=== PATIENT | female | born 1960 | race Caucasian/White ===

== ENCOUNTER 2016-07-25 01:04 | Inpatient (IN) | payer OTHER ==
[~2016-07-25] VITALS: Ht 154.9 cm; Wt 105.3 kg
[~2016-07-25 01:04] MED LIST: ACETTAB15 PO; ACT30 PO; ADVIN50/60 INH; ALBU0.5N2 NEB; ALBUAER2 INH; AMIT50TA3 PO; FLUO40CA8 PO; GABA400C PO; HYDR-5688 PO; LEVO150T PO; LORA10TA5 PO; METO25TA56 PO; MONT1TAB3 PO; OMEP40CA PO; OPANA ER PO; OPANA PO; PROM25TA9 PO
[2016-07-25] MEDS ORDERED: ACETAMINOPHEN IV 650 MG in EMPTY BAG 0 ML IV ONE (02:00)
[2016-07-25 02:36] LABS: MANUAL MICROSCOPIC REQUIRED? YES; URINE APPEARANCE CLOUDY (CLEAR); URINE BILIRUBIN NEG (NEG); URINE COLOR ORANGE; URINE NITRITE POS (NEG); URINE SPECIFIC GRAVITY 1.025 (1.000-1.030); UROBILINOGEN NEG (NEG)
[2016-07-25 02:44] LABS: REVIEW REQ? NO
[2016-07-25 02:46] LABS: SULFASALICYLIC ACID POS (NEG); URINE RBC >30 /hpf (0-4); URINE WBC >30 /hpf (0-5)
[2016-07-25 02:47] LABS: URINE BACTERIA 1+ (NEG); ZZUR CULT IF INDIC CLEAN CATCH YES
[2016-07-25] MEDS ORDERED: CEFTRIAXONE SOD INJ 1 GM ADDVIAL IV STA (02:50)
[2016-07-25 03:20] LABS: BASO % 0.4 %; BASO ABS # 0.08 K/uL (0-0.2); COMPLETE YES; EOS % 1.3 %; HEMATOCRIT 43.7 % (37-47); IG% 0.3 %; LYMPH % 12.2 %; LYMPH ABS # 2.45 K/uL (1.2-3.4); MEAN CELL VOLUME 85.9 fL (80-100); MEAN CORPUSCULAR HEMOGLOBIN 29.1 pg (25-34); MEAN CORPUSCULAR HGB CONC 33.9 g/dl (32-36); MEAN PLATELET VOLUME 10.2 fL (7.4-10.4); MONO % 9.9 %; NEUT % 75.9 %; PLATELET COUNT 429 K/uL (130-400); RED BLOOD COUNT 5.09 M/uL (4.2-5.4); WHITE BLOOD COUNT 20.05 K/uL (4.8-10.8)
[2016-07-25] MEDS ORDERED: OMEP40CA41 PO (03:35)
[2016-07-25 03:36] LABS: CALCIUM 8.6 mg/dl (8.5-10.1); CREATININE 0.66 mg/dl (0.60-1.20); MAGNESIUM 2.1 mg/dl (1.8-2.4); POTASSIUM 3.4 mmol/L (3.5-5.1)
[2016-07-25] MEDS ORDERED: MoRPHine SULFATE 4 MG/ML 1 ML CARP\\VIAL IV STA (03:36)
[2016-07-25] MEDS ORDERED: GABA800T PO (03:36)
[2016-07-25] MEDS ORDERED: RRALBUT2.5 NEB (03:40)
[2016-07-25] MEDS ORDERED: VNTHFA/IN INH (03:40)
[2016-07-25 03:42] LABS: ALB/GLOB RATIO 0.9 (0.9-2)
[2016-07-25] MEDS ORDERED: OXYC20TA50 PO (03:42)
[2016-07-25] MEDS ORDERED: FRCT/ PO (03:42)
[2016-07-25] MEDS ORDERED: PRMT25 PO (03:42)
[2016-07-25] MEDS ORDERED: LORATADINE 10 MG TAB PO PRN (05:00)
[2016-07-25] MEDS ORDERED: ALBUTEROL 0.5% NEB SOLN 2.5 MG/0.5 ML VIAL INH PRN (05:00)
[2016-07-25] MEDS ORDERED: ACETAMINOPHEN 325 MG TAB PO PRN (05:00)
[2016-07-25] MEDS ORDERED: ALBUTEROL HFA 8 GM INHALER INH PRN (05:00)
[2016-07-25] MEDS ORDERED: MoRPHine SULFATE 4 MG/ML 1 ML CARP\\VIAL ONE (05:55)
[2016-07-25 06:06] VITALS: BP 132/85; PULSE 92; TEMP 37.2; O2SAT 92; Ht 154.9 cm; Wt 105.3 kg
--- NOTE | 2016-07-25 06:52 | History and Physical ---
History & Physical Date & Time of Service: Jul 25, 2016 at 06:42 Chief Complaint: Sirs, Uti Primary Care Physician: Norberto Anderson MD History of Present Illness Source: patient The patient is a 55-year-old female who presents to the emergency department with complaint of severe pain across her lower pelvis area that developed acutely at approximately 4:00 in the afternoon the day prior to arrival. She denies any dysuria, hematuria, change in urinary frequency, change in stool pattern. She has not had any recent travels and denies any sick exposures. Past Medical/Surgical History Medical Problems: (1) Abdominal pain Status: Resolved (2) ELIO (acute kidney injury) Status: Resolved (3) Anxiety State Nos Status: Chronic (4) Asthma Status: Chronic (5) Back pain Status: Resolved (6) Back pain Status: Resolved (7) CHI (closed head injury) Status: Resolved (8) Contusion of multiple sites Status: Resolved (9) Contusion of multiple sites Status: Resolved (10) Contusion of third finger, right Status: Resolved (11) Degenerative arthritis of knee Status: Chronic (12) Dehydration Status: Resolved (13) Depressive Disorder Nec Status: Chronic (14) Diab Niyah Wo Compl, Type Ii Or Unspec Type, Not Uncntrld Status: Chronic (15) Esophageal Reflux Status: Chronic (16) Fall Status: Resolved (17) Fall due to slipping on ice or snow Status: Resolved (18) Foot pain Status: Resolved (19) Hx-Venous Thrombosis&Embolism Status: Chronic (20) Hyperlipidemia Nec/Nos Status: Chronic (21) Hypertension Status: Chronic (22) Hypotension Status: Resolved (23) Hypotension Status: Resolved (24) Hypothyroidism Nos Status: Chronic (25) Knee contusion Status: Resolved (26) Left wrist pain Status: Resolved (27) Leukocytosis Status: Resolved (28) Lumbar Disc Displacement Status: Chronic (29) Lumbar strain Status: Resolved (30) Lumbosacral Neuritis Nos Status: Chronic (31) Morbid Obesity Status: Chronic (32) Nausea, vomiting, and diarrhea Status: Resolved (33) Osteoporosis Nos Status: Chronic (34) Post concussion syndrome Status: Resolved (35) Right flank pain Status: Resolved (36) Splenosis Status: Chronic Surgical Problems: (1) Hx of appendectomy Status: Resolved (2) Hx of hernia repair Status: Resolved Family History Asthma Diabetes mellitus FHx: cancer FHx: heart failure Gallbladder disease Heart disease Hypertension Kidney stones Social History Smoking Status: Never Smoker Drug Use: none Marital Status: single Housing status: lives with family Occupational Status: employed Immunizations History of Influenza Vaccine: No Influenza Vaccine Date: Jan 07, 2013 History of Tetanus Vaccine?: Unknown History of Pneumococcal: Unknown Pneumococcal Date: Jan 08, 2012 History of Hepatitis B Vaccine: Unknown Multi-Drug Resistant Organisms History of MDRO: Yes Type of MDRO: MRSA Allergies Coded Allergies: Aspirin (Unverified Allergy, Severe, SHORT OF BREATH, 03/24/16) Ketorolac Tromethamine (Verified Allergy, Severe, SHORTNESS OF BREATH, ) Latex2 -Systemic Allergic Response (Verified Allergy, Severe, DIFFICULTY BREATHING, 03/24/16) NSAIDs (Unverified Allergy, Severe, SHORT OF BREATH, 03/24/16) Sulfa Antibiotics (Verified Allergy, Unknown, UNKNOWN- HAD RXN WHEN LITTLE , 03/24/16) Simvastatin (Verified Adverse Reaction, Intermediate, myalgias, 03/24/16) Metformin (Unverified Adverse Reaction, Mild, GI SYMPTOMS, 03/24/16) Home Medications Scheduled Amitriptyline Hcl (Amitriptyline Hcl), 50 MG PO HS Fluoxetine (Prozac), 40 MG PO HS Fluticasone Prop/Salmeterol (Advair Diskus 500/50 60 Dose), 1 PUFF INH BID Gabapentin (Neurontin), 800 MG PO TID Levothyroxine Sodium (Synthroid), 150 MCG PO QAM Metoprolol Tartrate (Lopressor) (Lopressor), 25 MG PO QAM Metoprolol Tartrate (Lopressor) (Lopressor), 50 MG PO QPM Montelukast Sodium (Singulair), 10 MG PO QAM Omeprazole (Prilosec), 40 MG PO QAM Oxycodone Hcl (Oxycontin), 20 MG PO QID Pioglitazone (Actos), 30 MG PO QAM Scheduled PRN Acetamin/Butalbital/Caffeine (Fioricet), 1 TAB PO UD PRN for Migraine Acetaminophen-Caffeine (Excedrin Tension Headache), 2 TABS PO Q6H PRN for Headache Albuterol Hfa (Ventolin Hfa), 2 PUFFS INH QID PRN for Wheezing Albuterol Sulf (Albuterol Sulfate), 1 DOSE NEB Q4 PRN for Wheezing Loratadine (Claritin), 10 MG PO DAILY PRN for Allergy Symptoms Midodrine (Midodrine HCl), 1 TAB PO UD PRN for Migraine Review of Systems The patient denies chest pain, palpitations, shortness of breath, cough, lower extremity swelling, vision change, hearing change, sore throat, fevers, chills, sweats, weight change, fatigue, nausea, vomiting, blood in urine or stool, dysuria, urinary frequency or urgency, lightheadedness, dizziness, headache, memory loss, rash, abnormal bruising or bleeding, imbalance, focal or generalized weakness, numbness or tingling in arms or legs, arthralgias or myalgias, neck pain, night sweats, or allergy symptoms. The review of systems is otherwise negative other than for that already noted above, and at least 10 systems have been reviewed. Physical Exam Vital Signs Date Time Temp Pulse Resp B/P Pulse Ox O2 Delivery O2 Flow Rate FiO2 07/25/16 06:06 37.2 92 20 132/85 92 Room Air 07/25/16 04:12 94 16 148/102 96 Room Air 07/25/16 02:20 91 18 166/121 97 Room Air 07/25/16 01:19 37.4 100 20 147/102 93 Room Air The patient is awake, well-developed and adequately nourished, alert and oriented 3, normocephalic and atraumatic, lying in bed and in no acute distress. HEENT--PERRL, EOMI, mucous membranes and oropharynx dry. Neck--supple, no JVD or bruits, thyroid normal, trachea midline, no adenopathy. Heart--normal S1 and S2, no extra beats, no murmurs, rubs or gallops. Lungs--clear bilaterally with good air movement, no respiratory distress, no accessory muscle use. Abdomen--normal bowel sounds and soft, tenderness across suprapubic area, nondistended, no hernias or masses, no organomegaly. Extremities--no cyanosis, clubbing or edema. There are good distal pulses b/l. Dermatologic--normal skin turgor, normal color, warm and dry, no abnormal lymph nodes, no rash. Neurologic--cranial nerves II through XII grossly intact, motor and sensory examination normal. Rheumatologic--normal range of motion, nontender, muscles and joints. Psychiatric--normal affect. Diagnostics Laboratory Results Results Past 24 Hours Test 07/25/16 02:15 07/25/16 03:10 07/25/16 03:51 Range/Units Urine Color ORANGE Urine Appearance CLOUDY CLEAR Urine pH 8.0 4.5-7.5 Urine Specific [place] 1.025 1.000-1.030 Urine Protein 3+ NEG Urine Glucose (UA) NEG NEG Urine Ketones NEG NEG Urine Occult Blood 3+ NEG Urine Nitrite POS NEG Urine Bilirubin NEG NEG Urine Urobilinogen NEG NEG Urine Leukocyte Esterase MODERATE NEG Urine RBC >30 0-4 /hpf Urine WBC >30 0-5 /hpf Urine Epithelial Cells 5-10 0-5 /lpf Urine Bacteria 1+ NEG White Blood Count 20.05 4.8-10.8 K/uL Red Blood Count 5.09 4.2-5.4 M/uL Hemoglobin 14.8 12.0-16.0 g/dL Hematocrit 43.7 37-47 % Mean Corpuscular Volume 85.9 80-100 fL Mean Corpuscular Hemoglobin 29.1 25-34 pg Mean Corpuscular Hemoglobin Concent 33.9 32-36 g/dl Platelet Count 429 130-400 K/uL Mean Platelet Volume 10.2 7.4-10.4 fL Neutrophils (%) (Auto) 75.9 % Lymphocytes (%) (Auto) 12.2 % Monocytes (%) (Auto) 9.9 % Eosinophils (%) (Auto) 1.3 % Basophils (%) (Auto) 0.4 % Neutrophils # (Auto) 15.20 1.4-6.5 K/uL Lymphocytes # (Auto) 2.45 1.2-3.4 K/uL Monocytes # (Auto) 1.99 0.11-0.59 K/uL Eosinophils # (Auto) 0.27 0-0.5 K/uL Basophils # (Auto) 0.08 0-0.2 K/uL RDW Standard Deviation 46.1 36.4-46.3 fL RDW Coefficient of Variation 14.7 11.5-14.5 % Immature Granulocyte % (Auto) 0.3 % Immature Granulocyte # (Auto) 0.06 0.00-0.02 K/uL Erythrocyte Sedimentation Rate 31 0-21 mm/hr Sodium Level 139 136-145 mmol/L Potassium Level 3.4 3.5-5.1 mmol/L Chloride Level 100 98-107 mmol/L Carbon Dioxide Level 30 21-32 mmol/L Anion Gap 9.0 3-11 mmol/L Blood Urea Nitrogen 7 7-18 mg/dl Creatinine 0.66 0.60-1.20 mg/dl Est Creatinine Clear Calc Drug Dose 105.1 ml/min Estimated GFR () 113.7 Estimated GFR (Non- 98.1 BUN/Creatinine Ratio 10.0 10-20 Random Glucose 158 70-99 mg/dl Calcium Level 8.6 8.5-10.1 mg/dl Magnesium Level 2.1 1.8-2.4 mg/dl Total Bilirubin 0.9 0.2-1 mg/dl Aspartate Amino Transf (AST/SGOT) 32 15-37 U/L Alanine Aminotransferase (ALT/SGPT) 38 12-78 U/L Alkaline Phosphatase 145 45-117 U/L Total Protein 7.3 6.4-8.2 gm/dl Albumin 3.4 3.4-5.0 gm/dl Globulin 3.9 2.5-4.0 gm/dl Albumin/Globulin Ratio 0.9 0.9-2 Lipase 66 73-393 U/L Bedside Lactic Acid Venous 1.71 0.90-1.70 mmol/L Microbiology Results 07/25/16 Blood Culture, Received Pending 07/25/16 Blood Culture, Received Pending 07/25/16 Urine Culture, Received Pending Impression Assessment and Plan UTI/severe pelvic pain/bilateral periureteral stranding/SIRS--the patient will be admitted to the medical floor. Continue the ceftriaxone begun in the emergency department at [address] on normal saline and potassium chloride 20 mEq at 125 ML's per hour. Follow urine culture and sensitivity results. Diabetes mellitus--hold pioglitazone 30 mg by mouth daily. Place on Accu-Cheks before meals and at bedtime with NovoLog coverage. Hypertension--continue metoprolol tartrate 25 mg by mouth every morning and 50 mg by mouth every afternoon. Hypothyroidism--continue levothyroxine sodium at 150 g by mouth every morning. Depression--continue amitriptyline 50 mg by mouth at bedtime, and fluoxetine 40 mg by mouth at bedtime. GERD--change omeprazole 40 mg by mouth every morning to pantoprazole 40 mg by mouth every morning. Pain management--continue OxyContin 20 mg by mouth 4 times a day, and morphine sulfate 2-4 mg IV every 2 hours when necessary. Peripheral neuropathy--continue gabapentin 800 mg by mouth 3 times a day. Asthma/allergy--continue Singulair 10 mg by mouth every morning, loratadine 10 mg by mouth daily when necessary, Advair discus 500/50 one inhalation twice a day, Ventolin HFA 2 puffs 4 times a day when necessary, albuterol sulfate nebulizer every 4 hours when necessary. Migraine headache--continue Fioricet 1 tablet by mouth daily when necessary and Excedrin tension headache 2 tablets by mouth every 6 hours when necessary. Level of Care Med/Surg Advanced Directives Existing Advance Directive: No Existing Living Will: No Existing Power of Teacher: No Resuscitation Status FULL RESUSCITATION VTE Prophylaxis VTE Risk Assessment Done? Y/N: Yes Risk Level: Moderate Given or contraindicated: SCD's Social Service Consult None Apply
[2016-07-25] MEDS ORDERED: OXYC1TAB3 PO (07:12)
[2016-07-25] MEDS: NSS + 20MEQ KCL 1000ML 1,000 ML IV SCH ×2 (07:22→17:08)
--- NOTE | 2016-07-25 07:43 | DIAGNOSTIC IMAGING REPORT ---
CT SCAN OF THE ABDOMEN AND PELVIS WITHOUT IV CONTRAST CLINICAL HISTORY: Lower abdominal pain. COMPARISON STUDY: Abdominal CT dated 11/24/2015. TECHNIQUE: CT scan of the abdomen and pelvis is performed from the lung bases to the proximal femora. Images are reviewed in the axial, sagittal, and coronal planes. IV contrast was not administered for this examination as per the referring clinician. Note that the examination was performed in suboptimal fashion without oral and IV contrast. Automated dose control exposure was utilized. CT DOSE: 1672.75 mGy.cm FINDINGS: Lung bases: The heart is normal in size and without pericardial effusion. Foci of linear atelectasis are present at the lung bases. The lung bases are otherwise clear. There is a tiny hiatal hernia. Liver: The unenhanced liver is enlarged, measuring 20 cm in length. The liver demonstrates diffusely diminished attenuation consistent with hepatic steatosis. There are foci of geographic sparing. There is no intrahepatic biliary ductal dilatation. Gallbladder: Surgically absent noting clips in the gallbladder fossa. Spleen: A normal spleen is not identified. Numerous soft tissue nodules in the left upper quadrant are similar to 11/24/2015 and likely represents splenules. Pancreas: Moderately atrophic and grossly unremarkable. Adrenal glands: Unremarkable. Kidneys: The unenhanced kidneys demonstrate cortical atrophy and are without hydronephrosis. There are no renal calculi identified. There is no evidence of contour deforming renal mass lesion. There is mild bilateral periureteric stranding and trace fluid. Abdominal vasculature: The abdominal aorta is normal in course and caliber noting mild atherosclerotic calcification. Bowel: There is laxity of the ventral abdominal wall with protrusion of bowel loops. No bowel obstruction is seen. There is mild colonic diverticulosis without CT evidence of acute diverticulitis. The appendix is not identified. Peritoneum: There is no intraperitoneal free air or abdominal ascites. Postoperative change is identified along the ventral abdominal wall and there is extensive mesh from previous hernia repair. Lymphadenopathy: None. Pelvic viscera: The bladder is decompressed and grossly unremarkable. The uterus is surgically absent. No adnexal lesion is seen. Skeletal structures: The skeletal structures are osteopenic. There is a moderate compression deformity of L3 with evidence of previous vertebroplasty. Mild/moderate lumbosacral spondylosis is observed. No lytic or blastic lesions are seen. IMPRESSION: 1. Suboptimal examination without oral and IV contrast. 2. There is mild bilateral periureteric stranding and trace fluid. Correlate clinically and with urinalysis for evidence of ascending urinary tract infection. 3. Mild colonic diverticulosis without CT evidence of acute diverticulitis. 4. Hepatomegaly and severe hepatic steatosis. 5. There is laxity of the ventral abdominal wall with protrusion of bowel loops and evidence of previous ventral hernia repair. 5. Additional changes as above. Electronically signed by: Alex Morris M.D. 07/25/2016 7:41 AM Dictated Date/Time: 07/25/2016 7:35 AM
[2016-07-25] MEDS: MoRPHine SULFATE 4 MG/ML 1 ML CARP\\VIAL IV PRN ×7 (07:58→22:34)
[2016-07-25] MEDS: ONDANSETRON INJ 2 MG/ML 2 ML VIAL IV PRN ×2 (07:58→15:19)
[2016-07-25] MEDS: OXYCODONE HCL IR 5 MG TAB (IMMEDIATE RELEASE) PO SCH ×4 (08:02→21:02)
[2016-07-25] MEDS: FLUTICASONE/SALMETEROL (ADVAIR) 500/50 INH 14 PUFF INH SCH ×2 (08:02→20:04)
[2016-07-25] MEDS: MONTELUKAST SOD 10 MG TAB PO SCH (08:03)
[2016-07-25] MEDS: GABAPENTIN 800 MG TAB PO SCH ×3 (08:03→20:04)
[2016-07-25] MEDS: LEVOTHYROXINE 150 MCG TAB PO SCH (08:03)
[2016-07-25] MEDS: PANTOprazole SOD 40 MG TAB PO SCH (08:03)
[2016-07-25] MEDS: METOPROLOL TARTRATE 25 MG TAB PO SCH (08:03)
[2016-07-25 08:19] VITALS: BP 123/91; PULSE 94; TEMP 37; O2SAT 96
[2016-07-25 15:44] VITALS: BP 96/76; PULSE 89; TEMP 36.4; O2SAT 93
[2016-07-25] MEDS: AMITRIPTYLINE HCL 50 MG TAB PO SCH (21:03)
[2016-07-25] MEDS: FLUOXETINE HCL 20 MG CAP PO SCH (21:06)
[2016-07-25] MEDS ORDERED: BUTALBITAL/ACETAMIN/CAFFEINE TAB PO PRN (21:15)
[2016-07-25] MEDS ORDERED: NURSING VERBAL MED ORDER ONE (21:15)
[2016-07-25 22:20] VITALS: BP 120/81; PULSE 78; O2SAT 98
[2016-07-25 23:30] LABS: URINE APPEARANCE CLEAR (CLEAR); URINE BILIRUBIN NEG (NEG); URINE COLOR YELLOW; URINE EPITHELIAL CELL AUTO >30 /lpf (0-5); URINE NITRITE NEG (NEG); URINE PH 5.5 (4.5-7.5); URINE SPECIFIC GRAVITY 1.022 (1.000-1.030); UROBILINOGEN NEG (NEG)
[2016-07-25 23:35] LABS: MANUAL MICROSCOPIC REQUIRED? NO; REVIEW REQ? NO
[2016-07-25 23:42] VITALS: BP 130/84; PULSE 82; TEMP 37.1; O2SAT 99
[2016-07-25 23:59] LABS: BUN/CREATININE RATIO 15.6 (10-20); CALCIUM 7.9 mg/dl (8.5-10.1); CREATININE 0.89 mg/dl (0.60-1.20); POTASSIUM 3.8 mmol/L (3.5-5.1)
[2016-07-26] VITALS: O2SAT 99
[2016-07-26] MEDS: METOPROLOL TARTRATE 50 MG TAB PO SCH ×2 (01:28→20:15)
[2016-07-26] MEDS: MoRPHine SULFATE 4 MG/ML 1 ML CARP\\VIAL IV PRN ×10 (01:28→23:50)
[2016-07-26] MEDS: ZOLPIDEM TARTRATE 5 MG TAB PO PRN ×2 (01:43→21:46)
[2016-07-26] MEDS ORDERED: FUROSEMIDE INJ 20 MG in SYRINGE 0 ML IV SCH (01:45)
[2016-07-26] MEDS: CEFTRIAXONE SOD INJ 1 GM in DEXTROSE 5% ADD-VANTAGE 50ML 50 ML IV SCH (02:36)
[2016-07-26] MEDS: NSS + 20MEQ KCL 1000ML 1,000 ML IV SCH ×3 (02:37→22:49)
[2016-07-26] MEDS: LEVOTHYROXINE 150 MCG TAB PO SCH (05:56)
[2016-07-26 07:26] VITALS: BP 99/67; PULSE 70; TEMP 36.9; O2SAT 96
[2016-07-26 08:45] VITALS: O2SAT 96
[2016-07-26] MEDS: MONTELUKAST SOD 10 MG TAB PO SCH (08:46)
[2016-07-26] MEDS: PANTOprazole SOD 40 MG TAB PO SCH (08:46)
[2016-07-26] MEDS: FLUTICASONE/SALMETEROL (ADVAIR) 500/50 INH 14 PUFF INH SCH ×2 (08:46→20:15)
[2016-07-26] MEDS: METOPROLOL TARTRATE 25 MG TAB PO SCH (08:46)
[2016-07-26] MEDS: GABAPENTIN 800 MG TAB PO SCH ×3 (08:47→20:16)
[2016-07-26] MEDS: OXYCODONE HCL IR 5 MG TAB (IMMEDIATE RELEASE) PO SCH ×4 (09:02→20:16)
[2016-07-26 09:07] LABS: BASO % 0.6 %; BASO ABS # 0.08 K/uL (0-0.2); COMPLETE YES; EOS % 4.4 %; HEMATOCRIT 37.1 % (37-47); IG% 0.2 %; LYMPH % 30.8 %; LYMPH ABS # 4.17 K/uL (1.2-3.4); MEAN CELL VOLUME 87.7 fL (80-100); MEAN CORPUSCULAR HEMOGLOBIN 28.1 pg (25-34); MEAN CORPUSCULAR HGB CONC 32.1 g/dl (32-36); MEAN PLATELET VOLUME 10.1 fL (7.4-10.4); MONO % 10.1 %; NEUT % 53.9 %; PLATELET COUNT 388 K/uL (130-400); RED BLOOD COUNT 4.23 M/uL (4.2-5.4); WHITE BLOOD COUNT 13.53 K/uL (4.8-10.8)
[2016-07-26 09:46] LABS: BUN/CREATININE RATIO 18.1 (10-20); CREATININE 0.58 mg/dl (0.60-1.20); POTASSIUM 4.1 mmol/L (3.5-5.1)
--- NOTE | 2016-07-26 12:22 | Progress Note ---
Subjective Date of Service: Jul 26, 2016. Subjective Pt evaluation today including: conversation w/ patient, physical exam, chart review, lab review, review of studies, review of inpatient medication list Pt reports fever overnight and into this morning Persistent diarrhea Mild abd pain left lower quadrant Problem List Medical Problems: (1) Abdominal wall abscess Status: Acute (2) Acute exacerbation of chronic low back pain Status: Acute (3) Anxiety State Nos Status: Chronic (4) Asthma Status: Chronic (5) Degenerative arthritis of knee Status: Chronic (6) Depressive Disorder Nec Status: Chronic (7) Diab Niyah Wo Compl, Type Ii Or Unspec Type, Not Uncntrld Status: Chronic (8) Epigastric abdominal pain Status: Acute (9) Esophageal Reflux Status: Chronic (10) Headache Status: Acute (11) Hx-Venous Thrombosis&Embolism Status: Chronic (12) Hyperlipidemia Nec/Nos Status: Chronic (13) Hypertension Status: Chronic (14) Hypertension Status: Acute (15) Hypothyroidism Nos Status: Chronic (16) Lumbar Disc Displacement Status: Chronic (17) Lumbar radiculopathy Status: Acute (18) Lumbosacral Neuritis Nos Status: Chronic (19) Morbid Obesity Status: Chronic (20) Osteoporosis Nos Status: Chronic (21) Pneumonia Status: Acute (22) Splenosis Status: Chronic (23) Urinary tract infection Status: Acute (24) UTI (urinary tract infection) Status: Acute Review of Systems Constitutional: + chills, + fever ENT: No hearing loss, No unusual epistaxis Respiratory: No cough, No shortness of breath, No sputum, No wheezing Cardiac: No PND, No chest pain, No orthopnea Abdomen: + diarrhea, No nausea, No pain, No vomiting Musculoskeletal: No joint pain, No muscle pain Female : No dysuria, No urinary frequency Objective Vital Signs Date Time Temp Pulse Resp B/P Pulse Ox O2 Delivery O2 Flow Rate FiO2 07/26/16 08:45 96 Room Air 07/26/16 07:26 36.9 70 16 99/67 96 Room Air 07/26/16 00:00 99 Room Air 07/25/16 23:42 37.1 82 20 130/84 99 Room Air 07/25/16 22:20 78 20 120/81 98 Room Air 07/25/16 20:00 Room Air 07/25/16 15:44 36.4 89 16 96/76 93 Room Air Physical Exam General Appearance: WD/WN, no apparent distress Neck: supple, no adenopathy Respiratory/Chest: lungs clear, normal breath sounds Cardiovascular: no edema, no gallop Abdomen: non tender, soft Neurologic/Psychiatric: alert, oriented x 3 Laboratory Results Last 24 Hours Test 07/25/16 22:56 07/25/16 23:00 07/26/16 08:50 Urine Color YELLOW Urine Appearance CLEAR Urine pH 5.5 Urine Specific [place] 1.022 Urine Protein NEG Urine Glucose (UA) NEG Urine Ketones NEG Urine Occult Blood NEG Urine Nitrite NEG Urine Bilirubin NEG Urine Urobilinogen NEG Urine Leukocyte Esterase TRACE Urine WBC (Auto) 10-30 /hpf Urine RBC (Auto) 0-4 /hpf Urine Hyaline Casts (Auto) 1-5 /lpf Urine Epithelial Cells (Auto) >30 /lpf Urine Bacteria (Auto) NEG Urine Osmolality 668 mOms/kg Urine Random Creatinine 160.0 mg/dl Urine Random Sodium 83 mEq/L Sodium Level 141 mmol/L 140 mmol/L Potassium Level 3.8 mmol/L 4.1 mmol/L Chloride Level 105 mmol/L 107 mmol/L Carbon Dioxide Level 27 mmol/L 25 mmol/L Anion Gap 9.0 mmol/L 8.0 mmol/L Blood Urea Nitrogen 14 mg/dl 11 mg/dl Creatinine 0.89 mg/dl 0.58 mg/dl Est Creatinine Clear Calc Drug Dose 77.9 ml/min 119.6 ml/min Estimated GFR () 83.4 118.6 Estimated GFR (Non- 71.9 102.3 BUN/Creatinine Ratio 15.6 18.1 Random Glucose 132 mg/dl 133 mg/dl Calcium Level 7.9 mg/dl 8.0 mg/dl Chemistry Specimen Hemolysis White Blood Count 13.53 K/uL Red Blood Count 4.23 M/uL Hemoglobin 11.9 g/dL Hematocrit 37.1 % Mean Corpuscular Volume 87.7 fL Mean Corpuscular Hemoglobin 28.1 pg Mean Corpuscular Hemoglobin Concent 32.1 g/dl Platelet Count 388 K/uL Mean Platelet Volume 10.1 fL Neutrophils (%) (Auto) 53.9 % Lymphocytes (%) (Auto) 30.8 % Monocytes (%) (Auto) 10.1 % Eosinophils (%) (Auto) 4.4 % Basophils (%) (Auto) 0.6 % Neutrophils # (Auto) 7.29 K/uL Lymphocytes # (Auto) 4.17 K/uL Monocytes # (Auto) 1.37 K/uL Eosinophils # (Auto) 0.59 K/uL Basophils # (Auto) 0.08 K/uL RDW Standard Deviation 49.6 fL RDW Coefficient of Variation 15.5 % Immature Granulocyte % (Auto) 0.2 % Immature Granulocyte # (Auto) 0.03 K/uL Magnesium Level 2.0 mg/dl Assessment and Plan UTI/severe pelvic pain/bilateral periureteral stranding/SIRS--the patient admitted to the medical floor. Continue the ceftriaxone begun in the emergency department at [address] on normal saline and potassium chloride 20 mEq at 125 ML's per hour. Urine cx pos for ecoli, leukocytosis improving Diabetes mellitus--hold pioglitazone 30 mg by mouth daily. Place on Accu-Cheks before meals and at bedtime with NovoLog coverage. Hypertension--continue metoprolol tartrate 25 mg by mouth every morning and 50 mg by mouth every afternoon. Hypothyroidism--continue levothyroxine sodium at 150 g by mouth every morning. Depression--continue amitriptyline 50 mg by mouth at bedtime, and fluoxetine 40 mg by mouth at bedtime. GERD--change omeprazole 40 mg by mouth every morning to pantoprazole 40 mg by mouth every morning. Pain management--continue OxyContin 20 mg by mouth 4 times a day, and morphine sulfate 2-4 mg IV every 2 hours when necessary. Peripheral neuropathy--continue gabapentin 800 mg by mouth 3 times a day. Asthma/allergy--continue Singulair 10 mg by mouth every morning, loratadine 10 mg by mouth daily when necessary, Advair discus 500/50 one inhalation twice a day, Ventolin HFA 2 puffs 4 times a day when necessary, albuterol sulfate nebulizer every 4 hours when necessary. Migraine headache--continue Fioricet 1 tablet by mouth daily when necessary and Excedrin tension headache 2 tablets by mouth every 6 hours when necessary.
[2016-07-26 15:33] VITALS: BP 117/88; PULSE 78; TEMP 36.8; O2SAT 95
[2016-07-26] MEDS: ONDANSETRON INJ 2 MG/ML 2 ML VIAL IV PRN (18:50)
[2016-07-26 20:14] VITALS: BP 114/77; PULSE 73
[2016-07-26] MEDS: FLUOXETINE HCL 20 MG CAP PO SCH (20:15)
[2016-07-26] MEDS: AMITRIPTYLINE HCL 50 MG TAB PO SCH (20:16)
[2016-07-27 00:12] VITALS: BP 130/83; PULSE 78; TEMP 36.9; O2SAT 100
[2016-07-27] MEDS: CEFTRIAXONE SOD INJ 1 GM in DEXTROSE 5% ADD-VANTAGE 50ML 50 ML IV SCH (02:27)
[2016-07-27] MEDS: MoRPHine SULFATE 4 MG/ML 1 ML CARP\\VIAL IV PRN ×3 (02:28→08:07)
[2016-07-27] MEDS ORDERED: NURSING VERBAL MED ORDER ONE (02:45)
[2016-07-27] MEDS: LEVOTHYROXINE 150 MCG TAB PO SCH (05:12)
[2016-07-27 07:24] LABS: BASO % 0.7 %; COMPLETE YES; EOS % 7.2 %; HEMATOCRIT 37.3 % (37-47); IG% 0.3 %; LYMPH % 30.7 %; LYMPH ABS # 4.46 K/uL (1.2-3.4); MEAN CELL VOLUME 87.8 fL (80-100); MEAN CORPUSCULAR HGB CONC 31.9 g/dl (32-36); MEAN PLATELET VOLUME 10.3 fL (7.4-10.4); MONO % 7.6 %; NEUT % 53.5 %; PLATELET COUNT 385 K/uL (130-400); RED BLOOD COUNT 4.25 M/uL (4.2-5.4); WHITE BLOOD COUNT 14.54 K/uL (4.8-10.8)
[2016-07-27 07:48] LABS: BUN/CREATININE RATIO 16.9 (10-20); CALCIUM 8.6 mg/dl (8.5-10.1); CREATININE 0.57 mg/dl (0.60-1.20); MAGNESIUM 2.3 mg/dl (1.8-2.4); POTASSIUM 4.3 mmol/L (3.5-5.1)
[2016-07-27 08:00] VITALS: BP 133/80; PULSE 65; TEMP 36.8; O2SAT 91
[2016-07-27] MEDS: FLUTICASONE/SALMETEROL (ADVAIR) 500/50 INH 14 PUFF INH SCH ×2 (08:00→20:49)
[2016-07-27] MEDS: GABAPENTIN 800 MG TAB PO SCH ×3 (08:01→20:50)
[2016-07-27] MEDS: METOPROLOL TARTRATE 25 MG TAB PO SCH (08:01)
[2016-07-27] MEDS: PANTOprazole SOD 40 MG TAB PO SCH (08:02)
[2016-07-27] MEDS: MONTELUKAST SOD 10 MG TAB PO SCH (08:02)
[2016-07-27] MEDS: OXYCODONE HCL IR 5 MG TAB (IMMEDIATE RELEASE) PO SCH ×4 (08:06→20:47)
[2016-07-27] MEDS: ONDANSETRON INJ 2 MG/ML 2 ML VIAL IV PRN ×3 (08:07→20:46)
[2016-07-27] MEDS: CIPROFLOXACIN 500 MG TAB PO SCH ×2 (08:26→20:49)
[2016-07-27] MEDS: OXYCODONE/ACETAMINOPHEN 7.5-325 TAB PO PRN ×3 (11:03→23:27)
--- NOTE | 2016-07-27 13:22 | Progress Note ---
Subjective Date of Service: Jul 27, 2016. Subjective Pt evaluation today including: conversation w/ patient, physical exam, chart review, lab review, review of studies, review of inpatient medication list Pt reports continued abd pain No fevers, nausea, vomiting, diarrhea Pt reports mild pain on urination Problem List Medical Problems: (1) Abdominal wall abscess Status: Acute (2) Acute exacerbation of chronic low back pain Status: Acute (3) Anxiety State Nos Status: Chronic (4) Asthma Status: Chronic (5) Degenerative arthritis of knee Status: Chronic (6) Depressive Disorder Nec Status: Chronic (7) Diab Niyah Wo Compl, Type Ii Or Unspec Type, Not Uncntrld Status: Chronic (8) Epigastric abdominal pain Status: Acute (9) Esophageal Reflux Status: Chronic (10) Headache Status: Acute (11) Hx-Venous Thrombosis&Embolism Status: Chronic (12) Hyperlipidemia Nec/Nos Status: Chronic (13) Hypertension Status: Chronic (14) Hypertension Status: Acute (15) Hypothyroidism Nos Status: Chronic (16) Lumbar Disc Displacement Status: Chronic (17) Lumbar radiculopathy Status: Acute (18) Lumbosacral Neuritis Nos Status: Chronic (19) Morbid Obesity Status: Chronic (20) Osteoporosis Nos Status: Chronic (21) Pneumonia Status: Acute (22) Splenosis Status: Chronic (23) Urinary tract infection Status: Acute (24) UTI (urinary tract infection) Status: Acute Review of Systems Constitutional: No chills, No fever Respiratory: No cough, No dyspnea on exertion, No shortness of breath, No sputum, No wheezing Cardiac: No chest pain, No orthopnea Abdomen: + pain, No GI bleeding, No constipation, No diarrhea, No nausea, No vomiting Musculoskeletal: No joint pain, No muscle pain Female : + dysuria, No hematuria, No incontinence, No urinary frequency Psychiatric: No anhedonism, No depression symptoms Objective Vital Signs Date Time Temp Pulse Resp B/P Pulse Ox O2 Delivery O2 Flow Rate FiO2 07/27/16 08:00 36.8 65 22 133/80 91 Room Air 07/27/16 08:00 Room Air 07/27/16 00:12 36.9 78 20 130/83 100 Room Air 07/27/16 00:00 Room Air 07/26/16 20:14 73 114/77 07/26/16 16:00 Room Air 07/26/16 15:33 36.8 78 18 117/88 95 Room Air Physical Exam General Appearance: WD/WN, no apparent distress Neck: supple, no adenopathy Respiratory/Chest: lungs clear, normal breath sounds Cardiovascular: no edema, no gallop Abdomen: soft, + tenderness Neurologic/Psychiatric: alert, oriented x 3 Laboratory Results Last 24 Hours Test 07/27/16 06:50 White Blood Count 14.54 K/uL Red Blood Count 4.25 M/uL Hemoglobin 11.9 g/dL Hematocrit 37.3 % Mean Corpuscular Volume 87.8 fL Mean Corpuscular Hemoglobin 28.0 pg Mean Corpuscular Hemoglobin Concent 31.9 g/dl Platelet Count 385 K/uL Mean Platelet Volume 10.3 fL Neutrophils (%) (Auto) 53.5 % Lymphocytes (%) (Auto) 30.7 % Monocytes (%) (Auto) 7.6 % Eosinophils (%) (Auto) 7.2 % Basophils (%) (Auto) 0.7 % Neutrophils # (Auto) 7.80 K/uL Lymphocytes # (Auto) 4.46 K/uL Monocytes # (Auto) 1.10 K/uL Eosinophils # (Auto) 1.04 K/uL Basophils # (Auto) 0.10 K/uL RDW Standard Deviation 48.8 fL RDW Coefficient of Variation 15.1 % Immature Granulocyte % (Auto) 0.3 % Immature Granulocyte # (Auto) 0.04 K/uL Sodium Level 140 mmol/L Potassium Level 4.3 mmol/L Chloride Level 105 mmol/L Carbon Dioxide Level 29 mmol/L Anion Gap 6.0 mmol/L Blood Urea Nitrogen 10 mg/dl Creatinine 0.57 mg/dl Est Creatinine Clear Calc Drug Dose 121.7 ml/min Estimated GFR () 119.3 Estimated GFR (Non- 102.9 BUN/Creatinine Ratio 16.9 Random Glucose 108 mg/dl Calcium Level 8.6 mg/dl Magnesium Level 2.3 mg/dl Assessment and Plan UTI/severe pelvic pain/bilateral periureteral stranding/SIRS--the patient was admitted to the medical floor. Switched ceftriaxone begun in the emergency department at 1 g IV daily to cipro PO. Place on normal saline and potassium chloride 20 mEq at 125 ML's per hour. Urine cx pos for ecoli, leukocytosis improving Diabetes mellitus--hold pioglitazone 30 mg by mouth daily. Place on Accu-Cheks before meals and at bedtime with NovoLog coverage. Hypertension--continue metoprolol tartrate 25 mg by mouth every morning and 50 mg by mouth every afternoon. Hypothyroidism--continue levothyroxine sodium at 150 g by mouth every morning. Depression--continue amitriptyline 50 mg by mouth at bedtime, and fluoxetine 40 mg by mouth at bedtime. GERD--change omeprazole 40 mg by mouth every morning to pantoprazole 40 mg by mouth every morning. Pain management--continue OxyContin 20 mg by mouth 4 times a day, and morphine sulfate 2-4 mg IV every 2 hours when necessary. Peripheral neuropathy--continue gabapentin 800 mg by mouth 3 times a day. Asthma/allergy--continue Singulair 10 mg by mouth every morning, loratadine 10 mg by mouth daily when necessary, Advair discus 500/50 one inhalation twice a day, Ventolin HFA 2 puffs 4 times a day when necessary, albuterol sulfate nebulizer every 4 hours when necessary. Migraine headache--continue Fioricet 1 tablet by mouth daily when necessary and Excedrin tension headache 2 tablets by mouth every 6 hours when necessary.
[2016-07-27] MEDS: MoRPHine SULFATE 2 MG/ML CARP IV PRN (14:07)
[2016-07-27 15:08] VITALS: BP 118/78; PULSE 67; TEMP 36.9; O2SAT 96
[2016-07-27 15:45] VITALS: O2SAT 96
--- NOTE | 2016-07-27 20:18 | DIAGNOSTIC IMAGING REPORT ---
[facility] CLINICAL HISTORY: Abdominal bloating and distention. COMPARISON STUDY: CT of the abdomen and pelvis July 25, 2016 PA FINDINGS: Innumerable surgical clips are noted. A 1 level vertebral augmentation is present. There is no evidence for a bowel obstruction. A moderate amount of stool is noted within the colon. IMPRESSION: 1. No evidence for a bowel obstruction. 2. Moderate amount of stool within the colon. Electronically signed by: Denis Duggan M.D. 07/27/2016 8:17 PM Dictated Date/Time: 07/27/2016 8:15 PM
[2016-07-27 20:51] VITALS: BP 139/89; PULSE 83
[2016-07-27] MEDS: AMITRIPTYLINE HCL 50 MG TAB PO SCH (20:51)
[2016-07-27] MEDS: METOPROLOL TARTRATE 50 MG TAB PO SCH (20:53)
[2016-07-27] MEDS: FLUOXETINE HCL 20 MG CAP PO SCH (20:53)
[2016-07-27] MEDS: ZOLPIDEM TARTRATE 5 MG TAB PO PRN (23:27)
[2016-07-27 23:41] VITALS: BP 116/72; PULSE 73; TEMP 36.9; O2SAT 95
[2016-07-28] VITALS: O2SAT 96
[2016-07-28] MEDS: MoRPHine SULFATE 4 MG/ML 1 ML CARP\\VIAL IV PRN ×2 (02:06→06:35)
[2016-07-28] MEDS: OXYCODONE/ACETAMINOPHEN 7.5-325 TAB PO PRN ×2 (04:57→12:19)
[2016-07-28] MEDS: LEVOTHYROXINE 150 MCG TAB PO SCH (06:36)
[2016-07-28 06:45] LABS: BASO % 0.7 %; BASO ABS # 0.09 K/uL (0-0.2); COMPLETE YES; EOS % 8.7 %; HEMATOCRIT 38.1 % (37-47); IG% 0.2 %; LYMPH % 28.1 %; LYMPH ABS # 3.57 K/uL (1.2-3.4); MEAN CELL VOLUME 87.6 fL (80-100); MEAN CORPUSCULAR HEMOGLOBIN 28.7 pg (25-34); MEAN CORPUSCULAR HGB CONC 32.8 g/dl (32-36); MEAN PLATELET VOLUME 10.2 fL (7.4-10.4); MONO % 8.1 %; NEUT % 54.2 %; PLATELET COUNT 403 K/uL (130-400); RED BLOOD COUNT 4.35 M/uL (4.2-5.4); WHITE BLOOD COUNT 12.71 K/uL (4.8-10.8)
[2016-07-28 07:14] LABS: BUN/CREATININE RATIO 20.4 (10-20); CALCIUM 8.2 mg/dl (8.5-10.1); CREATININE 0.66 mg/dl (0.60-1.20); MAGNESIUM 2.3 mg/dl (1.8-2.4); POTASSIUM 3.9 mmol/L (3.5-5.1)
[2016-07-28 07:21] VITALS: BP 122/80; PULSE 68; TEMP 36.9; O2SAT 92
[2016-07-28] MEDS: FLUTICASONE/SALMETEROL (ADVAIR) 500/50 INH 14 PUFF INH SCH (07:36)
[2016-07-28] MEDS: OXYCODONE HCL IR 5 MG TAB (IMMEDIATE RELEASE) PO SCH ×2 (07:37→12:23)
[2016-07-28] MEDS: PANTOprazole SOD 40 MG TAB PO SCH (07:37)
[2016-07-28] MEDS: CIPROFLOXACIN 500 MG TAB PO SCH (07:38)
[2016-07-28] MEDS: METOPROLOL TARTRATE 25 MG TAB PO SCH (07:38)
[2016-07-28] MEDS: GABAPENTIN 800 MG TAB PO SCH ×2 (07:38→13:57)
[2016-07-28] MEDS: MONTELUKAST SOD 10 MG TAB PO SCH (07:38)
[2016-07-28] MEDS: MoRPHine SULFATE 2 MG/ML CARP IV PRN (08:44)
[2016-07-28] MEDS ORDERED: LIDODERM (LIDOCAINE) PATCH 5% TD ONE (12:15)
[2016-07-28] MEDS ORDERED: CPR500 PO (12:46)
[2016-07-28] MEDS ORDERED: LDDP5 TD (12:46)
--- NOTE | 2016-07-28 12:54 | Discharge Instructions ---
Discharge Instructions Date of Service Jul 28, 2016. Admission Reason for Admission: Sirs, Uti Discharge Discharge Diagnosis / Problem: UTI Discharge Goals Goal(s): Decrease discomfort, Improve function Activity Recommendations Activity Limitations: resume your previous activity Exercise/Sports Limitations: none . Instructions / Follow-Up Instructions / Follow-Up Patient to be discharged home Please take antibiotic cipro twice a day for 7 more days Patient already prescribed oxy at home, please take as directed for pain In addition lidoderm patch prescription sent to pharmacy If worsening pain, fevers please report to ER Follow up with Dr Anderson in 1-2 weeks Current Hospital Diet Patient's current hospital diet: Regular Diet Discharge Diet Recommended Diet: Regular Diet Pending Studies Studies pending at discharge: no Medical Emergencies . Who to Call and When: Medical Emergencies: If at any time you feel your situation is an emergency, please call 911 immediately. . Non-Emergent Contact Non-Emergency issues call your: Primary Care Provider Call Non-Emergent contact if: you have a fever, your pain is worsening . . "Provider Documentation" section prepared by Leonard Melara. VTE Core Measure Inpt VTE Proph given/why not?: SCD's
--- NOTE | 2016-07-28 13:23 | Discharge Summary ---
Discharge Summary Date of Service Jul 28, 2016. Discharge Summary Admission Date: Jul 25, 2016 at 04:54 Discharge Date: Jul 28, 2016 Discharge Disposition: Home Principal Diagnosis: SIRS, UTI Problems/Secondary Diagnoses: (1) Anxiety State Nos Status: Chronic (2) Asthma Status: Chronic (3) Degenerative arthritis of knee Status: Chronic (4) Depressive Disorder Nec Status: Chronic (5) Diab Niyah Wo Compl, Type Ii Or Unspec Type, Not Uncntrld Status: Chronic (6) Esophageal Reflux Status: Chronic (7) Hx-Venous Thrombosis&Embolism Status: Chronic (8) Hyperlipidemia Nec/Nos Status: Chronic (9) Hypertension Status: Chronic (10) Hypothyroidism Nos Status: Chronic (11) Lumbar Disc Displacement Status: Chronic (12) Lumbosacral Neuritis Nos Status: Chronic (13) Morbid Obesity Status: Chronic (14) Osteoporosis Nos Status: Chronic (15) Splenosis Status: Chronic Immunizations: Have You Had Influenza Vaccine: No Influenza Vaccine Date: Jan 07, 2013 History of Tetanus Vaccine?: Unknown History of Pneumococcal: Unknown Pneumococcal Date: Jan 08, 2012 History of Hepatitis B Vaccine: Unknown Medication Reconciliation New Medications: Ciprofloxacin (Ciprofloxacin HCl) 500 Mg Tab 500 MG PO BID for 7 Days, #14 TAB Lidocaine (Lidocaine) 1 Patch Tdsy 1 PATCH TD QAM, #1 BOX Continued Medications: Acetamin/Butalbital/Caffeine (Fioricet) 1 Ea Tab 1 TAB PO UD PRN for Migraine, TAB Acetaminophen-Caffeine (Excedrin Tension Headache) 1 Tab Tab 2 TABS PO Q6H PRN for Headache Albuterol Hfa (Ventolin Hfa) 200 Puffs/95225 Mcg Aers 2 PUFFS INH QID PRN for Wheezing Albuterol Sulf (Albuterol Sulfate) 2.5 Mg/0.5 Ml Nebu 1 DOSE NEB Q4 PRN for Wheezing Amitriptyline Hcl (Amitriptyline Hcl) 50 Mg Tab 50 MG PO HS, TAB Fluoxetine (Prozac) 40 Mg Cap 40 MG PO HS, CAP Fluticasone Prop/Salmeterol (Advair Diskus 500/50 60 Dose) 1 Ea Aerp 1 PUFF INH BID, INHALER Gabapentin (Neurontin) 800 Mg Tab 800 MG PO TID, TAB Levothyroxine Sodium (Synthroid) 150 Mcg Tab 150 MCG PO QAM, TAB Loratadine (Claritin) 10 Mg Tab 10 MG PO DAILY PRN for Allergy Symptoms, TAB Metoprolol Tartrate (Lopressor) (Lopressor) 25 Mg Tab 25 MG PO QAM, TAB Metoprolol Tartrate (Lopressor) (Lopressor) 25 Mg Tab 50 MG PO QPM, TAB Midodrine (Midodrine HCl) Unknown Strength Tab 1 TAB PO UD PRN for Migraine Montelukast Sodium (Singulair) 10 Mg Tab 10 MG PO QAM, TAB Omeprazole (Prilosec) 40 Mg Cap 40 MG PO QAM, CAP Oxycodone Ir (Roxicodone Ir) 5 Mg Tab 20 MG PO Q6H for SCHEDULED, TAB Pioglitazone (Actos) 30 Mg Tab 30 MG PO QAM, TAB Discharge Exam Review of Systems: Constitutional: No chills, No fever Respiratory: No cough, No sputum Cardiovascular: No chest pain, No orthopnea Abdomen: + pain, No GI bleeding, No constipation, No diarrhea, No nausea, No vomiting Musculoskeletal: + joint pain, + muscle pain Genitourinary - Female: + dysuria, No urinary frequency, No urinary urgency Neurologic: No paralysis, No weakness Physical Exam: General Appearance: WD/WN, + mild distress, + obese Neck: supple, no adenopathy Respiratory/Chest: lungs clear, normal breath sounds Cardiovascular: no edema, no gallop Abdomen / GI: non tender, soft Neurologic/Psychiatric: alert, normal mood/affect, oriented x 3 Hospital Course UTI/severe pelvic pain/bilateral periureteral stranding/SIRS--the patient was admitted to the medical floor. Switched ceftriaxone begun in the emergency department at 1 g IV daily to cipro PO. Place on normal saline and potassium chloride 20 mEq at 125 ML's per hour. Urine cx pos for ecoli, leukocytosis improving. Discharged on cipro twice a day for 7 more days. Diabetes mellitus--hold pioglitazone 30 mg by mouth daily. Place on Accu-Cheks before meals and at bedtime with NovoLog coverage. Hypertension--continue metoprolol tartrate 25 mg by mouth every morning and 50 mg by mouth every afternoon. Hypothyroidism--continue levothyroxine sodium at 150 g by mouth every morning. Depression--continue amitriptyline 50 mg by mouth at bedtime, and fluoxetine 40 mg by mouth at bedtime. GERD--change omeprazole 40 mg by mouth every morning to pantoprazole 40 mg by mouth every morning. Pain management--continue OxyContin 20 mg by mouth 4 times a day, and morphine sulfate 2-4 mg IV every 2 hours when necessary. Discharged with prescription for lidoderm patch as well Peripheral neuropathy--continue gabapentin 800 mg by mouth 3 times a day. Asthma/allergy--continue Singulair 10 mg by mouth every morning, loratadine 10 mg by mouth daily when necessary, Advair discus 500/50 one inhalation twice a day, Ventolin HFA 2 puffs 4 times a day when necessary, albuterol sulfate nebulizer every 4 hours when necessary. Migraine headache--continue Fioricet 1 tablet by mouth daily when necessary and Excedrin tension headache 2 tablets by mouth every 6 hours when necessary. Total Time Spent: Greater than 30 minutes This includes examination of the patient, discharge planning, medication reconciliation, and communication with other providers. Discharge Instructions Please refer to the electronic Patient Visit Report (Discharge Instructions) for additional information. Additional Copies To Norberto Anderson MD
[2016-07-28 13:44] VITALS: BP 122/80; PULSE 68; TEMP 36.9; O2SAT 92
[2016-07-29] MEDS ORDERED: LIDODERM (LIDOCAINE) PATCH 5% TD SCH (08:00)
--- NOTE | 2016-08-01 13:09 | EMERGENCY ROOM VISIT NOTE ---
History First contact with patient: :29 Chief Complaint: ABDOMINAL PAIN Stated Complaint: SIRS, UTI Nursing Triage Summary: nausea and abdominal pain History of Present Illness The patient is a 55 year old female who presents to the Emergency Department by private vehicle for evaluation of her abdominal pain. She reports that her pain developed approximate 4 PM today. She reports the pain progressively worsened throughout the evening which prompted her visit today. She reports chills as well as nausea and bloating. She feels as though she may have a UTI as she is having burning with urination. She denies any blood in her urine. 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 She did have regrowth apart versus plain. She is not prophylaxed with antibiotics otherwise. She reports a prior history of appendectomy as well as cholecystectomy and hernia repair. She denies any fevers. She rates her current discomfort as a 7/10. Patient denies any headaches, dizziness, light headedness, chest pain, palpitations, pleuritic pain, vomiting, hematochezia, or melena. She denies any angeles hematuria. Review of Systems A complete 10-point Review of Systems was discussed with the patient, with pertinent positives and negatives listed in the History of Present Illness. All remaining Review of Systems questions can be considered negative unless otherwise specified. Past Medical/Surgical History Medical Problems: (1) Abdominal pain (2) Acute renal failure (3) ELIO (acute kidney injury) (4) Anxiety State Nos (5) Asthma (6) Back pain (7) Back pain (8) CHI (closed head injury) (9) Contusion of multiple sites (10) Contusion of multiple sites (11) Contusion of third finger, right (12) Degenerative arthritis of knee (13) Dehydration (14) Depressive Disorder Nec (15) Diab Niyah Wo Compl, Type Ii Or Unspec Type, Not Uncntrld (16) Esophageal Reflux (17) Fall (18) Fall due to slipping on ice or snow (19) Foot pain (20) Hx-Venous Thrombosis&Embolism (21) Hyperlipidemia Nec/Nos (22) Hypertension (23) Hypotension (24) Hypotension (25) Hypothyroidism Nos (26) Knee contusion (27) Left wrist pain (28) Leukocytosis (29) Lumbar Disc Displacement (30) Lumbar strain (31) Lumbosacral Neuritis Nos (32) Morbid Obesity (33) Nausea and vomiting (34) Nausea, vomiting, and diarrhea (35) Osteoporosis Nos (36) Post concussion syndrome (37) Right flank pain (38) SIRS (systemic inflammatory response syndrome) (39) Splenosis (40) UTI (urinary tract infection) Surgical Problems: (1) Hx of appendectomy (2) Hx of hernia repair Family History Asthma Diabetes mellitus FHx: cancer FHx: heart failure Gallbladder disease Heart disease Hypertension Kidney stones Social History Smoking Status: Never Smoker Smokeless Tobacco Use: No Alcohol Use: none Drug Use: none Marital Status: single Housing Status: lives with family Occupation Status: employed Current/Historical Medications Scheduled Amitriptyline Hcl (Amitriptyline Hcl), 50 MG PO HS Ciprofloxacin (Ciprofloxacin HCl), 500 MG PO BID Fluoxetine (Prozac), 40 MG PO HS Fluticasone Prop/Salmeterol (Advair Diskus 500/50 60 Dose), 1 PUFF INH BID Gabapentin (Neurontin), 800 MG PO TID Levothyroxine Sodium (Synthroid), 150 MCG PO QAM Lidocaine (Lidocaine), 1 PATCH TD QAM Metoprolol Tartrate (Lopressor) (Lopressor), 25 MG PO QAM Metoprolol Tartrate (Lopressor) (Lopressor), 50 MG PO QPM Montelukast Sodium (Singulair), 10 MG PO QAM Omeprazole (Prilosec), 40 MG PO QAM Oxycodone Ir (Roxicodone Ir), 20 MG PO Q6H Pioglitazone (Actos), 30 MG PO QAM Scheduled PRN Acetamin/Butalbital/Caffeine (Fioricet), 1 TAB PO UD PRN for Migraine Acetaminophen-Caffeine (Excedrin Tension Headache), 2 TABS PO Q6H PRN for Headache Albuterol Hfa (Ventolin Hfa), 2 PUFFS INH QID PRN for Wheezing Albuterol Sulf (Albuterol Sulfate), 1 DOSE NEB Q4 PRN for Wheezing Loratadine (Claritin), 10 MG PO DAILY PRN for Allergy Symptoms Midodrine (Midodrine HCl), 1 TAB PO UD PRN for Migraine Allergies Coded Allergies: Aspirin (Unverified Allergy, Severe, SHORT OF BREATH, 03/24/16) Ketorolac Tromethamine (Verified Allergy, Severe, SHORTNESS OF BREATH, ) Latex2 -Systemic Allergic Response (Verified Allergy, Severe, DIFFICULTY BREATHING, 03/24/16) NSAIDs (Unverified Allergy, Severe, SHORT OF BREATH, 03/24/16) Sulfa Antibiotics (Verified Allergy, Unknown, UNKNOWN- HAD RXN WHEN LITTLE , 03/24/16) Simvastatin (Verified Adverse Reaction, Intermediate, myalgias, 03/24/16) Metformin (Unverified Adverse Reaction, Mild, GI SYMPTOMS, 03/24/16) Physical Exam Vital Signs Date Time Temp Pulse Resp B/P Pulse Ox O2 Delivery O2 Flow Rate FiO2 07/25/16 04:12 94 16 148/102 96 Room Air 07/25/16 02:20 91 18 166/121 97 Room Air 07/25/16 01:19 37.4 100 20 147/102 93 Room Air Pain Rating (0-10): 7 Physical Exam VITAL SIGNS - Vital signs and nursing notes were reviewed. GENERAL - 55-year-old female appearing her stated age who is in no acute distress. Communicates well with provider and answers questions appropriately. LUNGS - Chest wall symmetric without accessory muscle use, intercostals retractions, or central cyanosis. Normal vesicular breath sounds CTA B/L. No wheezes, rales, or rhonchi appreciated. CARDIAC - RRR with S1/S2. No murmur, rubs, or gallops appreciated. ABDOMEN - Abdominal contour obese and without pulsations or visible masses. BS normoactive all four quadrants. No tenderness to palpation appreciated throughout. No guarding. No Rebound Tenderness. Negative Rovsing's. Negative Méndez's. No palpable masses, hepatosplenomegaly, or ascites noted. Moderate reproducible CVA tenderness to percussion. PSYCH - A&Ox3 and cooperates fully with examiner. Pt is very pleasant and interacts well with examiner. Medical Decision & Procedures ER Provider Diagnostic Interpretation: Radiological imaging and reports were reviewed by myself. Radiologist's Interpretation as follows: CT SCAN OF THE ABDOMEN AND PELVIS WITHOUT IV CONTRAST CLINICAL HISTORY: Lower abdominal pain. COMPARISON STUDY: Abdominal CT dated 11/24/2015. TECHNIQUE: CT scan of the abdomen and pelvis is performed from the lung bases to the proximal femora. Images are reviewed in the axial, sagittal, and coronal planes. IV contrast was not administered for this examination as per the referring clinician. Note that the examination was performed in suboptimal fashion without oral and IV contrast. Automated dose control exposure was utilized. CT DOSE: 1672.75 mGy.cm FINDINGS: Lung bases: The heart is normal in size and without pericardial effusion. Foci of linear atelectasis are present at the lung bases. The lung bases are otherwise clear. There is a tiny hiatal hernia. Liver: The unenhanced liver is enlarged, measuring 20 cm in length. The liver demonstrates diffusely diminished attenuation consistent with hepatic steatosis. There are foci of geographic sparing. There is no intrahepatic biliary ductal dilatation. Gallbladder: Surgically absent noting clips in the gallbladder fossa. Spleen: A normal spleen is not identified. Numerous soft tissue nodules in the left upper quadrant are similar to 11/24/2015 and likely represents splenules. Pancreas: Moderately atrophic and grossly unremarkable. Adrenal glands: Unremarkable. Kidneys: The unenhanced kidneys demonstrate cortical atrophy and are without hydronephrosis. There are no renal calculi identified. There is no evidence of contour deforming renal mass lesion. There is mild bilateral periureteric stranding and trace fluid. Abdominal vasculature: The abdominal aorta is normal in course and caliber noting mild atherosclerotic calcification. Bowel: There is laxity of the ventral abdominal wall with protrusion of bowel loops. No bowel obstruction is seen. There is mild colonic diverticulosis without CT evidence of acute diverticulitis. The appendix is not identified. Peritoneum: There is no intraperitoneal free air or abdominal ascites. Postoperative change is identified along the ventral abdominal wall and there is extensive mesh from previous hernia repair. Lymphadenopathy: None. Pelvic viscera: The bladder is decompressed and grossly unremarkable. The uterus is surgically absent. No adnexal lesion is seen. Skeletal structures: The skeletal structures are osteopenic. There is a moderate compression deformity of L3 with evidence of previous vertebroplasty. Mild/moderate lumbosacral spondylosis is observed. No lytic or blastic lesions are seen. IMPRESSION: 1. Suboptimal examination without oral and IV contrast. 2. There is mild bilateral periureteric stranding and trace fluid. Correlate clinically and with urinalysis for evidence of ascending urinary tract infection. 3. Mild colonic diverticulosis without CT evidence of acute diverticulitis. 4. Hepatomegaly and severe hepatic steatosis. 5. There is laxity of the ventral abdominal wall with protrusion of bowel loops and evidence of previous ventral hernia repair. 5. Additional changes as above. Laboratory Results Test 07/25/16 02:15 07/25/16 03:10 07/25/16 03:51 Urine RBC >30 /hpf (0-4) Urine WBC >30 /hpf (0-5) Urine Epithelial Cells 5-10 /lpf (0-5) Urine Bacteria 1+ (NEG) Erythrocyte Sedimentation Rate 31 mm/hr (0-21) Total Bilirubin 0.9 mg/dl (0.2-1) Aspartate Amino Transf (AST/SGOT) 32 U/L (15-37) Alanine Aminotransferase (ALT/SGPT) 38 U/L (12-78) Alkaline Phosphatase 145 U/L (45-117) Total Protein 7.3 gm/dl (6.4-8.2) Albumin 3.4 gm/dl (3.4-5.0) Globulin 3.9 gm/dl (2.5-4.0) Albumin/Globulin Ratio 0.9 (0.9-2) Lipase 66 U/L (73-393) Bedside Lactic Acid Venous 1.71 mmol/L (0.90-1.70) Date/Time Source Procedure Growth Status 07/25/16 03:46 Blood Blood Culture - Final NO GROWTH Complete 07/25/16 02:15 Urine , Clean Catch Urine Culture - Final Escherichia Coli Complete Medications Administered Medications (Trade) Dose Ordered Sig/Sid Route Start Time Stop Time Status Last Admin Dose Admin Acetaminophen/ Empty Bag (Ofirmev IV/ Empty Iv Bag 100ml) 65 ml @ 260 mls/hr NOW ONCE IV 07/25/16 02:00 07/25/16 02:14 DC 07/25/16 02:54 260 MLS/HR Ceftriaxone Sodium (Rocephin Inj) 1 gm NOW STAT IV 07/25/16 02:50 07/25/16 02:51 DC 07/25/16 03:22 1 GM Morphine Sulfate (MoRPHine SULFATE INJ) 4 mg NOW STAT IV 07/25/16 03:36 07/25/16 03:37 DC 07/25/16 04:06 4 MG ED Course Patient was seen and evaluated by myself. Previous emergency department visit notes were reviewed. Labs were drawn, saline lock in place. Patient was initially treated with IV Tylenol for pain. CT of the abdomen and pelvis without contrast was ordered. Laboratory results demonstrate a market leukocytosis of greater than 20,000. ESR and CRP are both elevated. At this point, [id number] lactic acid and blood cultures were ordered. Patient was treated with IV Rocephin. She received 4 mg IV morphine for pain. CT results as above. Laboratory results and imaging studies were reviewed with the patient who acknowledges understanding. The patient was admitted to the hospitalist program for further evaluation and management. Patient admitted in fair condition. Medical Decision Given the patient's presentation and stated complaints, I did elect to perform the above-mentioned workup. The patient presents today with abdominal pain as well as flank pain. She is concern for UTI. She has no fever. She had a market leukocytosis on presentation. At this point, I did draw blood cultures as well as a lactic acid which was mildly elevated. She was treated with IV Rocephin pending urine culture. CT concerning for periureteral stranding. The patient will be admitted for continued evaluation of her pyelonephritis and service. Patient admitted in stable condition. In the evaluation and treatment of this patient, the following differential diagnoses were considered: Bladder Cancer, Chlamydial Genitourinary Infection, Cystitis, Herpes Simplex, Interstitial Cystitis, PID, Pyelonephritis, Urethritis , or Vaginitis. Impression Primary Impression: Pyelonephritis Additional Impression: SIRS (systemic inflammatory response syndrome) Departure Information Dispostion Admitted as an inpatient Condition FAIR Prescriptions Lidocaine (Lidocaine) 1 Patch Tdsy 1 PATCH TD QAM, #1 BOX Prov: Leonard Melara D.O. 07/28/16 Ciprofloxacin (Ciprofloxacin HCl) 500 Mg Tab 500 MG PO BID for 7 Days, #14 TAB Prov: Leonard Melara D.O. 07/28/16 Referrals Norberto Anderson MD (PCP) Forms Call Back Authorization, HOME CARE DOCUMENTATION FORM, IMPORTANT VISIT INFORMATION Patient Instructions [facility] Problem Qualifiers
[2016-09-05] MEDS ORDERED: DXY100 PO (13:30)
[2016-09-05] MEDS ORDERED: ROSU20TA PO (14:30)
[2017-01-10] MEDS ORDERED: VANC1INJ94 IV (10:52)
[2017-01-11] MEDS ORDERED: DIPH25CA50 PO (09:33)
== END 2016-07-28 14:19 | disposition home or self-care (01) | DRG 690 ==
LOC: ENRESERVDT → ENRESERVTM → C.EDB 01:05 → C.4E 04:54
PROVIDERS: ADMIT Hospitalist; ATTEND Hospitalist
DX: N39.0 Urinary tract infection, site not specified (principal); R65.10 Systemic inflammatory response syndrome (SIRS) of non-infectious origin without acute organ dysfunction; Z68.41 Body mass index [BMI] 40.0-44.9, adult; F41.1 Generalized anxiety disorder; J45.909 Unspecified asthma, uncomplicated; M19.90 Unspecified osteoarthritis, unspecified site; F32.9 Major depressive disorder, single episode, unspecified; K21.9 Gastro-esophageal reflux disease without esophagitis; Z86.718 Personal history of other venous thrombosis and embolism; E78.5 Hyperlipidemia, unspecified; I10 Essential (primary) hypertension; M51.36 Other intervertebral disc degeneration, lumbar region; M54.17 Radiculopathy, lumbosacral region; E66.01 Morbid (severe) obesity due to excess calories; M81.0 Age-related osteoporosis without current pathological fracture; D73.89 Other diseases of spleen; E03.9 Hypothyroidism, unspecified; E11.42 Type 2 diabetes mellitus with diabetic polyneuropathy; G43.909 Migraine, unspecified, not intractable, without status migrainosus

== ENCOUNTER 2016-08-07 03:26 | Emergency (ER) | payer OTHER ==
[~2016-08-07] VITALS: Ht 154.9 cm; Wt 110.0 kg
[~2016-08-07 03:26] MED LIST changes: -ALBU0.5N2 NEB; -ALBUAER2 INH; +CPR500 PO; +FRCT/ PO; -GABA400C PO; +GABA800T PO; -HYDR-5688 PO; +LDDP5 TD; -OMEP40CA PO; +OMEP40CA41 PO; +OXYC1TAB3 PO; +PRMT25 PO; -PROM25TA9 PO; +RRALBUT2.5 NEB; +VNTHFA/IN INH
[2016-08-07 03:33] VITALS: TEMP 36.9; Ht 154.9 cm; Wt 110.0 kg
[2016-08-07] MEDS ORDERED: SODIUM CHLORIDE 0.9% 1000ML 1,000 ML IV STA (03:47)
[2016-08-07] MEDS ORDERED: ONDANSETRON INJ 2 MG/ML 2 ML VIAL IV STA (03:47)
[2016-08-07] MEDS ORDERED: MoRPHine SULFATE 4 MG/ML 1 ML CARP\\VIAL IV STA ×2 (03:47→05:39)
[2016-08-07] MEDS ORDERED: OPTIRAY 320 IV PRN (04:00)
[2016-08-07 05:16] LABS: BASO % 0.7 %; BASO ABS # 0.11 K/uL (0-0.2); COMPLETE YES; EOS % 4.2 %; HEMATOCRIT 39.3 % (37-47); IG% 0.4 %; LYMPH % 30.6 %; LYMPH ABS # 4.84 K/uL (1.2-3.4); MEAN CELL VOLUME 87.7 fL (80-100); MEAN CORPUSCULAR HEMOGLOBIN 28.8 pg (25-34); MEAN CORPUSCULAR HGB CONC 32.8 g/dl (32-36); MEAN PLATELET VOLUME 9.8 fL (7.4-10.4); MONO % 8.4 %; NEUT % 55.7 %; PLATELET COUNT 450 K/uL (130-400); RED BLOOD COUNT 4.48 M/uL (4.2-5.4)
[2016-08-07 05:19] LABS: URINE APPEARANCE CLEAR (CLEAR); URINE BILIRUBIN NEG (NEG); URINE COLOR YELLOW; URINE NITRITE NEG (NEG); URINE PH 6.5 (4.5-7.5); URINE SPECIFIC GRAVITY 1.021 (1.000-1.030); UROBILINOGEN NEG (NEG); ZZUR CULT IF INDIC CLEAN CATCH NO
[2016-08-07 05:24] LABS: ISTAT CREATININE 0.7 mg/dl (0.6-1.3); ISTAT HEMOGLOBIN 13.3 g/dl (12.0-16.0); ISTAT IONIZED CALCIUM 1.13 mmol/l (1.12-1.32)
[2016-08-07 05:42] LABS: ALB/GLOB RATIO 0.9 (0.9-2); BUN/CREATININE RATIO 22.7 (10-20); C-REACTIVE PROTEIN 0.86 mg/dl (0-0.29); CALCIUM 8.7 mg/dl (8.5-10.1); CREATININE 0.74 mg/dl (0.60-1.20); POTASSIUM 4.5 mmol/L (3.5-5.1)
[2016-08-07 05:44] LABS: MANUAL MICROSCOPIC REQUIRED? NO; REVIEW REQ? NO
--- NOTE | 2016-08-07 06:37 | EMERGENCY ROOM VISIT NOTE ---
History First contact with patient: 03:38 Chief Complaint: ABDOMINAL PAIN Stated Complaint: ABD PAIN TO BACK Nursing Triage Summary: Pt recently discharged for kidney infection. Pt has had pain in flanks and abdomen since. Worsened yesterday and hasn't decreased. History of Present Illness The patient is a 55 year old female who presents to the Emergency Department by private vehicle for evaluation of her mid abdominal and back pain. She reports that she was recently admitted for a urinary tract infection and sepsis. She reports the infection had since resolved, but that the pain never really went away. She reports that the pain worsened yesterday. She did contact her primary care provider's office and was directed to the emergency department. She did not elect to present to the emergency department until later this evening. She has appointment tomorrow with her primary care provider. She reports location of the pain has changed and describes it in the lower abdomen at this point. She does report a history of ventral hernia repair. She is not chronically taking antibiotics. She denies a burning with urination or blood in her urine. She reports no flank pain. She denies any fevers or chills. She 's been nauseated and has not vomited. The patient rates her current discomfort as an 8/10. She denies any chest pain, palpitations, shortness of breath, hematemesis, hematochezia, melena, hematuria, or dysuria. Review of Systems A complete 10-point Review of Systems was discussed with the patient, with pertinent positives and negatives listed in the History of Present Illness. All remaining Review of Systems questions can be considered negative unless otherwise specified. Past Medical/Surgical History Medical Problems: (1) Abdominal pain (2) Acute renal failure (3) ELIO (acute kidney injury) (4) Anxiety State Nos (5) Asthma (6) Back pain (7) Back pain (8) CHI (closed head injury) (9) Contusion of multiple sites (10) Contusion of multiple sites (11) Contusion of third finger, right (12) Degenerative arthritis of knee (13) Dehydration (14) Depressive Disorder Nec (15) Diab Niyah Wo Compl, Type Ii Or Unspec Type, Not Uncntrld (16) Esophageal Reflux (17) Fall (18) Fall due to slipping on ice or snow (19) Foot pain (20) Hx-Venous Thrombosis&Embolism (21) Hyperlipidemia Nec/Nos (22) Hypertension (23) Hypotension (24) Hypotension (25) Hypothyroidism Nos (26) Knee contusion (27) Left wrist pain (28) Leukocytosis (29) Lumbar Disc Displacement (30) Lumbar strain (31) Lumbosacral Neuritis Nos (32) Morbid Obesity (33) Nausea and vomiting (34) Nausea, vomiting, and diarrhea (35) Osteoporosis Nos (36) Post concussion syndrome (37) Right flank pain (38) SIRS (systemic inflammatory response syndrome) (39) Splenosis (40) UTI (urinary tract infection) Surgical Problems: (1) Hx of appendectomy (2) Hx of hernia repair Family History Asthma Diabetes mellitus FHx: cancer FHx: heart failure Gallbladder disease Heart disease Hypertension Kidney stones Social History Smoking Status: Never Smoker Alcohol Use: none Drug Use: none Marital Status: single Housing Status: lives with family Occupation Status: employed Current/Historical Medications Scheduled Amitriptyline Hcl (Amitriptyline Hcl), 50 MG PO HS Fluoxetine (Prozac), 40 MG PO HS Fluticasone Prop/Salmeterol (Advair Diskus 500/50 60 Dose), 1 PUFF INH BID Gabapentin (Neurontin), 800 MG PO TID Levothyroxine Sodium (Synthroid), 150 MCG PO QAM Lidocaine (Lidocaine), 1 PATCH TD QAM Metoprolol Tartrate (Lopressor) (Lopressor), 25 MG PO QAM Metoprolol Tartrate (Lopressor) (Lopressor), 50 MG PO QPM Montelukast Sodium (Singulair), 10 MG PO QAM Omeprazole (Prilosec), 40 MG PO QAM Oxycodone Ir (Roxicodone Ir), 20 MG PO Q6H Pioglitazone (Actos), 30 MG PO QAM Scheduled PRN Acetamin/Butalbital/Caffeine (Fioricet), 1 TAB PO UD PRN for Migraine Acetaminophen-Caffeine (Excedrin Tension Headache), 2 TABS PO Q6H PRN for Headache Albuterol Hfa (Ventolin Hfa), 2 PUFFS INH QID PRN for Wheezing Albuterol Sulf (Albuterol Sulfate), 1 DOSE NEB Q4 PRN for Wheezing Loratadine (Claritin), 10 MG PO DAILY PRN for Allergy Symptoms Midodrine (Midodrine HCl), 1 TAB PO UD PRN for Migraine Allergies Coded Allergies: Aspirin (Unverified Allergy, Severe, SHORT OF BREATH, 08/07/16) Ketorolac Tromethamine (Verified Allergy, Severe, SHORTNESS OF BREATH, 04/13) Latex2 -Systemic Allergic Response (Verified Allergy, Severe, DIFFICULTY BREATHING, 08/07/16) NSAIDs (Unverified Allergy, Severe, SHORT OF BREATH, 08/07/16) Sulfa Antibiotics (Verified Allergy, Unknown, UNKNOWN- HAD RXN WHEN LITTLE , 08/07/16) Simvastatin (Verified Adverse Reaction, Intermediate, myalgias, 08/07/16) Metformin (Unverified Adverse Reaction, Mild, GI SYMPTOMS, 08/07/16) Physical Exam Vital Signs Date Time Temp Pulse Resp B/P Pulse Ox O2 Delivery O2 Flow Rate FiO2 08/07/16 06:53 79 16 146/107 98 08/07/16 05:46 82 16 147/99 94 Room Air 08/07/16 05:09 81 18 150/96 93 Room Air 08/07/16 03:33 36.9 84 16 135/99 94 Room Air Pain Rating (0-10): 8 Physical Exam VITAL SIGNS - Vital signs and nursing notes were reviewed. GENERAL - 55-year-old female appearing her stated age who is in no acute distress. Communicates well with provider and answers questions appropriately. LUNGS - Chest wall symmetric without accessory muscle use, intercostals retractions, or central cyanosis. Normal vesicular breath sounds CTA B/L. No wheezes, rales, or rhonchi appreciated. CARDIAC - RRR with S1/S2. No murmur, rubs, or gallops appreciated. ABDOMEN - Abdominal contour obese and without pulsations or visible masses. BS normoactive all four quadrants. Subjective tenderness to palpation appreciated throughout the lower abdomen. No guarding. No Rebound Tenderness. Negative Rovsing's. Negative Méndez's. No palpable masses, hepatosplenomegaly, or ascites noted. EXTREMITIES - No clubbing or peripheral cyanosis. No pretibial edema present. +3 /5 radial and dorsalis pedis pulses palpated throughout. PSYCH - A&Ox3 and cooperates fully with examiner. Pt is very pleasant and interacts well with examiner. Medical Decision & Procedures ER Provider Diagnostic Interpretation: Radiological imaging and reports were reviewed by myself. Radiologist's Interpretation per [facility] as follows: CT ABDOMEN & PELVIS: Comparison: July 25, 2016. No free air or free fluid or fluid collections. No bowel obstruction. Distended stomach with retained gastric contents. Appendix is not visualized. No pericecal inflammatory type changes. Diverticulosis without evidence of diverticulitis. Prior ventral abdominal wall hernia repair. Cholecystectomy clips. No pancreatitis. Previously noted left perinephritic and periureteral stranding have resolved. No hydronephrosis or pyelonephritis. Right renal cyst. Normal spleen is not visualized with multiple splenules, stable. Normal caliber abdominal aorta. L3 vertebroplasty changes. Laboratory Results 08/07/16 05:05 Red Blood Count 4.48, Mean Corpuscular Volume 87.7, Mean Corpuscular Hemoglobin 28.8, Mean Corpuscular Hemoglobin Concent 32.8, Mean Platelet Volume 9.8, Neutrophils (%) (Auto) 55.7, Lymphocytes (%) (Auto) 30.6, Monocytes (%) (Auto) 8.4, Eosinophils (%) (Auto) 4.2, Basophils (%) (Auto) 0.7, Neutrophils # (Auto) 8.79, Lymphocytes # (Auto) 4.84, Monocytes # (Auto) 1.33, Eosinophils # (Auto) 0.67, Basophils # (Auto) 0.11 08/07/16 05:05 Test 08/07/16 05:05 08/07/16 05:10 White Blood Count 15.80 K/uL (4.8-10.8) Red Blood Count 4.48 M/uL (4.2-5.4) Hemoglobin 12.9 g/dL (12.0-16.0) Hematocrit 39.3 % (37-47) Mean Corpuscular Volume 87.7 fL (80-100) Mean Corpuscular Hemoglobin 28.8 pg (25-34) Mean Corpuscular Hemoglobin Concent 32.8 g/dl (32-36) Platelet Count 450 K/uL (130-400) Mean Platelet Volume 9.8 fL (7.4-10.4) Neutrophils (%) (Auto) 55.7 % Lymphocytes (%) (Auto) 30.6 % Monocytes (%) (Auto) 8.4 % Eosinophils (%) (Auto) 4.2 % Basophils (%) (Auto) 0.7 % Neutrophils # (Auto) 8.79 K/uL (1.4-6.5) Lymphocytes # (Auto) 4.84 K/uL (1.2-3.4) Monocytes # (Auto) 1.33 K/uL (0.11-0.59) Eosinophils # (Auto) 0.67 K/uL (0-0.5) Basophils # (Auto) 0.11 K/uL (0-0.2) RDW Standard Deviation 48.5 fL (36.4-46.3) RDW Coefficient of Variation 15.0 % (11.5-14.5) Immature Granulocyte % (Auto) 0.4 % Immature Granulocyte # (Auto) 0.06 K/uL (0.00-0.02) Est Creatinine Clear Calc Drug Dose 96.2 ml/min Estimated GFR () 104.2 Estimated GFR (Non- 89.9 BUN/Creatinine Ratio 22.7 (10-20) Calcium Level 8.7 mg/dl (8.5-10.1) Total Bilirubin 0.2 mg/dl (0.2-1) Aspartate Amino Transf (AST/SGOT) 13 U/L (15-37) Alanine Aminotransferase (ALT/SGPT) 27 U/L (12-78) Alkaline Phosphatase 106 U/L (45-117) C-Reactive Protein 0.86 mg/dl (0-0.29) Total Protein 6.7 gm/dl (6.4-8.2) Albumin 3.1 gm/dl (3.4-5.0) Globulin 3.6 gm/dl (2.5-4.0) Albumin/Globulin Ratio 0.9 (0.9-2) Lipase 148 U/L (73-393) Chemistry Specimen Hemolysis Bedside Hemoglobin 13.3 g/dl (12.0-16.0) Bedside Hematocrit 39 % (37-47) Urine Color YELLOW Urine Appearance CLEAR (CLEAR) Urine pH 6.5 (4.5-7.5) Urine Specific [place] 1.021 (1.000-1.030) Urine Protein NEG (NEG) Urine Glucose (UA) NEG (NEG) Urine Ketones NEG (NEG) Urine Occult Blood NEG (NEG) Urine Nitrite NEG (NEG) Urine Bilirubin NEG (NEG) Urine Urobilinogen NEG (NEG) Urine Leukocyte Esterase NEG (NEG) Bedside Sodium 140 mEq/L (135-144) Bedside Potassium 4.3 mEq/L (3.3-5.0) Bedside Chloride 100 mEq/L (101-112) Bedside Total CO2 29 mEq/l (24-31) Anion Gap 17.0 mmol/L (16-25) Bedside Blood Urea Nitrogen 18 mg/dl (7-18) Bedside Creatinine 0.7 mg/dl (0.6-1.3) Bedside Glucose (other) 124 mg/dl (70-99) Bedside Ionized Calcium (Hali) 1.13 mmol/l (1.12-1.32) Medications Administered Medications (Trade) Dose Ordered Sig/Sid Route Start Time Stop Time Status Last Admin Dose Admin Sodium Chloride (Nss 1000ml) 1,000 ml @ 999 mls/hr Q1H1M STAT IV 08/07/16 03:47 08/07/16 04:47 DC 08/07/16 05:06 999 MLS/HR Morphine Sulfate (MoRPHine SULFATE INJ) 4 mg NOW STAT IV 08/07/16 03:47 08/07/16 03:49 DC 08/07/16 05:04 4 MG Ondansetron HCl (Zofran Inj) 4 mg NOW STAT IV 08/07/16 03:47 08/07/16 03:49 DC 08/07/16 05:04 4 MG Morphine Sulfate (MoRPHine SULFATE INJ) 4 mg NOW STAT IV 08/07/16 05:39 08/07/16 05:40 DC 08/07/16 05:44 4 MG Acetaminophen/ Hydrocodone Bitart (Red [place] 5/325mg Home Pack) 1 homepack UD ONCE PO 08/07/16 06:45 08/07/16 06:46 DC 08/07/16 06:44 1 HOMEPACK ED Course Patient was seen and evaluated by myself. Previous emergency department visit notes were reviewed. Labs were drawn, saline lock in place. Patient was hydrated with a 1000 mL normal saline bolus. She was treated with 4 mg morphine and [address] of the abdomen and pelvis with IV contrast was ordered. Laboratory results demonstrate a moderate leukocytosis. The patient is not anemic. There are no significant electrolyte abnormalities. [id number] lactic acid was negative. Urinalysis does not just infection. Patient complains of continued pain. She was treated with an additional [address] results as above. Laboratory results and imaging studies were reviewed with the patient who acknowledges understanding. She was offered admission for pain control versus keep your follow-up appointment in the outpatient with her primary care provider today as scheduled. She does not wish to be admitted at this time. She was provided Red [place] home pack for home. She was educated on worrisome symptoms for return visit to the emergency department. Patient discharged home afebrile and in good condition. Medical Decision Given the patient's presentation and stated complaints, I did elect to perform the above-mentioned workup. I am familiar with this patient from previous visit to the emergency department has actually did admit her with urosepsis and pyelonephritis. She presents today complaining of different pain. Her abdomen is subjectively tender to palpation. She has had multiple surgeries in the past. Her white count was elevated at greater than 15,000. Her pain was adequately controlled the emergency department. Lactic acid was negative and urinalysis was unremarkable. Her CT suggests no acute infectious findings at this point. I do not feel the patient warrants admission at this point. She was offered admission for pain control which she declines. She was provided Red Cloud for pain control at home which I feel she will continue to struggle with regardless of Pathophysiology. She has appointment today with her primary care provider which she will keep. She will return to the emergency department in the setting of any changing or worsening symptoms. Patient discharged home afebrile and in good condition. In the evaluation and treatment of this patient, the following differential diagnoses were considered: UTI, sepsis, appendicitis, diverticulitis, diverticulosis, bowel perforation, pneumonia, pyelonephritis, hydronephrosis, nephrolithiasis, malingering, amongst others. Impression Primary Impression: Abdominal pain Departure Information Dispostion Home / Self-Care Condition GOOD Referrals Norberto Anderson MD (PCP) Patient Instructions My [facility] Additional Instructions You have been treated in the Emergency Department your Abdominal Pain. Laboratory results and imaging studies have ruled out any emergent causes for your abdominal pain which would warrant admission or surgery. You have been prescribed Red Cloud to be used for pain control. This is a narcotic medication. You cannot drive or consume alcohol while on this medicine. This medicine should only be used for pain that cannot be controlled with over-the- counter pain medicines. For pain control, you can use the following [id number] medicines (if >12 yo): - Regular strength (325mg/tab) Tylenol (acetaminophen) 2 tabs every 4-6 hours as needed. Do not exceed 12 tablets in a 24 hour period. Avoid taking more than 4 grams (4000 mg) of Tylenol per day. This includes any other sources of acetaminophen you may take on a regular basis. - Regular strength (200 mg/tab) Advil (ibuprofen) 1-2 tabs every 4-6 hours as needed. Do not exceed a dose of 3200 mg per day. Drink plenty of water and stay well hydrated. Keep your follow-up appointment with your primary care provider's office today. Return to the emergency department if your symptoms persist despite treatment plan outlined above or if the following symptoms occur: increased fevers, chills , worsening nausea/vomiting, blood in your stool or urine. Problem Qualifiers Primary Impression: Abdominal pain Abdominal location: generalized Qualified Codes: R10.84 - Generalized abdominal pain
[2016-08-07] MEDS ORDERED: NORCO 5/325MG HOME PACK PO ONE (06:45)
[2016-08-07 06:53] VITALS: BP 146/107; PULSE 79; O2SAT 98
--- NOTE | 2016-08-07 07:43 | DIAGNOSTIC IMAGING REPORT ---
ABDOMEN AND PELVIS CT WITH IV CONTRAST CT DOSE: 1642.81 mGy.cm HISTORY: Generalized abdominal pain TECHNIQUE: Multiaxial CT images of the abdomen and pelvis were performed following the use of intravenous contrast. COMPARISON STUDY: Abdomen and pelvis CT 07/25/2016. FINDINGS: Right basilar subsegmental atelectasis. The left lung base is clear. No pneumoperitoneum. No pneumatosis. L3 vertebroplasty changes are again noted. No hepatic masses. Focal area of soft tissue plaque within the mid abdominal aorta resulting in 40% stenosis. A 5 mm hypodense lesion within the interpolar region and lower pole of the left kidney are too small to characterize. A normal spleen is not identified. Multiple small accessory spleens are noted. Normal adrenal glands and pancreas. Cholecystectomy. 12 mm hypodense lesion within the upper pole of the right kidney favors a cyst. No hydronephrosis. Normal bladder. The uterus is surgically absent. No retroperitoneal lymphadenopathy. Prior ventral hernia repair. Laxity within the anterior abdominal wall persists. Colonic diverticulosis. No bowel wall thickening or obstruction. IMPRESSION: 1. No bowel wall thickening or obstruction. 2. No renal stones or hydronephrosis. 3. Focal area of 40% stenosis within the mid abdominal aorta due to the atherosclerotic plaque. 4. Additional chronic changes as described above. Electronically signed by: Matteo Rojas M.D. 08/07/2016 7:41 AM Dictated Date/Time: 08/07/2016 7:35 AM
[2016-09-05] MEDS ORDERED: DXY100 PO (13:30)
[2016-09-05] MEDS ORDERED: ROSU20TA PO (14:30)
[2017-01-10] MEDS ORDERED: VANC1INJ94 IV (10:52)
[2017-01-11] MEDS ORDERED: DIPH25CA50 PO (09:33)
== END 2016-08-07 06:54 | disposition home or self-care (01) ==
LOC: C.EDB 03:27 → C.EDA 06:54
DX: R10.84 Generalized abdominal pain (principal); J45.909 Unspecified asthma, uncomplicated; E11.9 Type 2 diabetes mellitus without complications; E78.5 Hyperlipidemia, unspecified; I10 Essential (primary) hypertension; E03.9 Hypothyroidism, unspecified; E66.01 Morbid (severe) obesity due to excess calories; Z82.5 Family history of asthma and other chronic lower respiratory diseases; Z83.3 Family history of diabetes mellitus; Z82.49 Family history of ischemic heart disease and other diseases of the circulatory system

== ENCOUNTER 2016-08-18 21:25 | Emergency (ER) | payer OTHER ==
[~2016-08-18] VITALS: Ht 157.5 cm; Wt 100.0 kg
[~2016-08-18 21:25] MED LIST changes: -CPR500 PO
[2016-08-18 21:29] VITALS: TEMP 37.2; Ht 157.5 cm; Wt 100.0 kg
[2016-08-18] MEDS ORDERED: LIDOCAINE/EPINEPHRINE 1% 20 ML VIAL INFIL ONE (22:00)
--- NOTE | 2016-08-18 23:01 | DIAGNOSTIC IMAGING REPORT ---
RIGHT SHOULDER 3 VIEWS HISTORY: fall, right shoulder pain Right COMPARISON: None. FINDINGS: There is no fracture or dislocation. Soft tissues are unremarkable. The right clavicle is intact. Mild to moderate degenerative changes within the right shoulder. IMPRESSION: No fracture or dislocation within the right shoulder. Electronically signed by: Matteo Rojas M.D. 08/18/2016 10:59 PM Dictated Date/Time: 08/18/2016 10:59 PM
--- NOTE | 2016-08-18 23:04 | DIAGNOSTIC IMAGING REPORT ---
RIGHT TIBIA/FIBULA 2 VIEWS ROUTINE, RIGHT KNEE 3 VIEWS CLINICAL HISTORY: fall, right lower leg pain Right. Right knee pain. COMPARISON STUDY: None. FINDINGS: The bones are osteopenic. Pretibial soft tissue swelling. Plantar heel spur. Moderate osteoarthritis within the right knee. No significant knee effusion. No acute fracture or dislocation. IMPRESSION: No acute fracture or dislocation within the right knee, right tibia, or right fibula. Electronically signed by: Matteo Rojas M.D. 08/18/2016 11:02 PM Dictated Date/Time: 08/18/2016 10:59 PM
--- NOTE | 2016-08-19 00:08 | EMERGENCY ROOM VISIT NOTE ---
History First contact with patient: 21:41 Chief Complaint: FALL Stated Complaint: FELL ON BROKEN CERAMIC POTS,R SIDED CUTS History of Present Illness The patient is a 55 year old female who presents to the Emergency Room with complaints of a fall which occurred just prior to arrival. The patient states that she was at a friend's house and she stood on a kitchen chair which had wheels to reach into a top cabinet. She states that the chair slid and she fell onto some ceramic bowls. She reports pain in her right shoulder, right knee and right lower leg. She sustained a laceration to the leg. She states the fall was mechanical in nature and was not associated with any chest pain, shortness of breath or lightheadedness. She denies any numbness or weakness. Her tetanus shot is up-to-date. The patient denies hitting her head. Review of Systems A complete 10-point Review of Systems was discussed with the patient, with pertinent positives and negatives listed in the History of Present Illness. All remaining Review of Systems questions can be considered negative unless otherwise specified. Past Medical/Surgical History Medical Problems: (1) Abdominal pain (2) Acute renal failure (3) ELIO (acute kidney injury) (4) Anxiety State Nos (5) Asthma (6) Back pain (7) Back pain (8) CHI (closed head injury) (9) Contusion of multiple sites (10) Contusion of multiple sites (11) Contusion of third finger, right (12) Degenerative arthritis of knee (13) Dehydration (14) Depressive Disorder Nec (15) Diab Niyah Wo Compl, Type Ii Or Unspec Type, Not Uncntrld (16) Esophageal Reflux (17) Fall (18) Fall due to slipping on ice or snow (19) Foot pain (20) Hx-Venous Thrombosis&Embolism (21) Hyperlipidemia Nec/Nos (22) Hypertension (23) Hypotension (24) Hypotension (25) Hypothyroidism Nos (26) Knee contusion (27) Left wrist pain (28) Leukocytosis (29) Lumbar Disc Displacement (30) Lumbar strain (31) Lumbosacral Neuritis Nos (32) Morbid Obesity (33) Nausea and vomiting (34) Nausea, vomiting, and diarrhea (35) Osteoporosis Nos (36) Post concussion syndrome (37) Right flank pain (38) SIRS (systemic inflammatory response syndrome) (39) Splenosis (40) UTI (urinary tract infection) Surgical Problems: (1) Hx of appendectomy (2) Hx of hernia repair Family History Asthma Diabetes mellitus FHx: cancer FHx: heart failure Gallbladder disease Heart disease Hypertension Kidney stones Social History Smoking Status: Never Smoker Alcohol Use: none Drug Use: none Marital Status: single Housing Status: lives with family Occupation Status: employed Current/Historical Medications Scheduled Amitriptyline Hcl (Amitriptyline Hcl), 50 MG PO HS Fluoxetine (Prozac), 40 MG PO HS Fluticasone Prop/Salmeterol (Advair Diskus 500/50 60 Dose), 1 PUFF INH BID Gabapentin (Neurontin), 800 MG PO TID Levothyroxine Sodium (Synthroid), 150 MCG PO QAM Metoprolol Tartrate (Lopressor) (Lopressor), 25 MG PO QAM Metoprolol Tartrate (Lopressor) (Lopressor), 50 MG PO QPM Montelukast Sodium (Singulair), 10 MG PO QAM Omeprazole (Prilosec), 40 MG PO QAM Oxycodone Ir (Roxicodone Ir), 20 MG PO Q6H Pioglitazone (Actos), 30 MG PO QAM Scheduled PRN Acetamin/Butalbital/Caffeine (Fioricet), 1 TAB PO UD PRN for Migraine Acetaminophen-Caffeine (Excedrin Tension Headache), 2 TABS PO Q6H PRN for Headache Albuterol Hfa (Ventolin Hfa), 2 PUFFS INH QID PRN for Wheezing Albuterol Sulf (Albuterol Sulfate), 1 DOSE NEB Q4 PRN for Wheezing Loratadine (Claritin), 10 MG PO DAILY PRN for Allergy Symptoms Midodrine (Midodrine HCl), 1 TAB PO UD PRN for Migraine Allergies Coded Allergies: Aspirin (Verified Allergy, Severe, SHORT OF BREATH, 08/18/16) Ketorolac Tromethamine (Verified Allergy, Severe, SHORTNESS OF BREATH, ) Latex2 -Systemic Allergic Response (Verified Allergy, Severe, DIFFICULTY BREATHING, 08/18/16) NSAIDs (Verified Allergy, Severe, SHORT OF BREATH, 08/18/16) Sulfa Antibiotics (Verified Allergy, Unknown, UNKNOWN- HAD RXN WHEN LITTLE , 08/18/16) Simvastatin (Verified Adverse Reaction, Intermediate, myalgias, 08/18/16) Metformin (Verified Adverse Reaction, Mild, GI SYMPTOMS, 08/18/16) Physical Exam Vital Signs Date Time Temp Pulse Resp B/P Pulse Ox O2 Delivery O2 Flow Rate FiO2 08/19/16 00:26 115 18 151/106 92 08/18/16 22:36 106 20 96 Room Air 08/18/16 21:29 37.2 114 22 134/92 86 Room Air Physical Exam VITALS: Vitals are noted on the nurse's note and reviewed by myself. Vital signs stable. GENERAL: This is a 55-year-old female, in no acute distress, nondiaphoretic, well-developed well-nourished. SKIN: There is a 3 cm laceration to the anterior aspect of the right lower leg. It is gaping slightly. There is no active bleeding. EYES: Pupils equal round and reactive to light and accommodation. Conjunctivae without injection, sclerae without icterus. MOUTH: Mucous membranes appear to be dry. NECK: Supple without nuchal rigidity. Cervical spine is nontender. HEART: Regular rate and rhythm without murmurs gallops or rubs. LUNGS: Clear to auscultation bilaterally without wheezes, rales or rhonchi. MUSCULOSKELETAL: There is tenderness to palpation of the anterior right shoulder , anterior right knee, and distal fibula. There is no tenderness over the foot. There is no tenderness over the right hip. Full range of motion of all extremities. NEURO: Patient was alert and oriented to person place and time. Normal sensation to light and sharp touch. Medical Decision & Procedures ER Provider Diagnostic Interpretation: RIGHT SHOULDER 3 VIEWS IMPRESSION: No fracture or dislocation within the right shoulder. RIGHT TIBIA/FIBULA 2 VIEWS ROUTINE, RIGHT KNEE 3 VIEWS IMPRESSION: No acute fracture or dislocation within the right knee, right tibia, or right fibula. RIGHT TIBIA/FIBULA 2 VIEWS ROUTINE, RIGHT KNEE 3 VIEWS IMPRESSION: No acute fracture or dislocation within the right knee, right tibia, or right fibula. Procedure Verbal consent was obtained to perform the procedure. Using sterile technique the wound was cleaned with Betadine. The area was sterilely draped. 3 ml of 1 % buffered lidocaine with epinephrine was used to anesthetize the leg laceration. Once the patient was anesthetized, the wound was copiously irrigated under pressure with sterile saline. The wound was explored and there were no deep structures injured such as tendons, bone, or significant blood vessels. The laceration was repaired using 5 simple interrupted 4-0 nylon sutures with the wound edges being well approximated. The patient tolerated the procedure well. Hemostasis was achieved. The area was cleaned with sterile saline and dressed with bacitracin ointment and bandage. Medical Decision Differential diagnosis includes fracture, sprain, contusion, among others. The patient was evaluated as above. Multiple imaging studies were obtained and read by radiology as above. Laceration repair was performed as noted in the procedure section. The patient's initial O2 saturation was low. However, when the patient had sat in the room for a few minutes, I applied the pulse oximeter to her finger and the O2 saturation read 97%. The patient was slightly tachycardic which I think is secondary to anxiety and pain. She does have a prescription for pain medication at home and she will take this. Suture care instructions were discussed with the patient. She will follow-up with her primary care provider this week as needed. She verbalized understanding of my assessment and treatment plan and was discharged home in good condition. Impression Primary Impression: Fall Additional Impressions: Contusion of multiple sites Laceration of right lower leg Departure Information Dispostion Home / Self-Care Condition GOOD Referrals Norberto Anderson MD (PCP) Patient Instructions My [facility] Additional Instructions You have received 5 sutures on your leg. These sutures are NOT dissolvable and WILL need to be removed by a health care provider in 10-12 days. You can return to the Emergency Department or contact your Primary Care Provider to have the sutures removed. Proper wound care is essential for adequate wound healing and infection prevention. You can shower and clean the wound with soap and water. Do not scour over the wound, pat dry with a towel. Do not submerse the wound (i.e. bathe or dish wash) until the sutures have been removed. You can use an antibiotic ointment with a dressing over the wound for the next 3-4 days. After this time you may leave the wound dry and open to the air. If crust develops over the wound you can use a Q-tip to apply a 1:1 peroxide:water solution to clean the wound. Look for signs of infection of the wound including: increased pain, swelling, foul discharge, streaking, or increased temperature. If any of these are noticed you should return to the Emergency Department for further assessment and treatment. As with any laceration you may have received nerve damage to the surrounding tissues. This damage may or may not be permanent. You should keep the area covered with sunscreen for the first 6 months to 1 year when at risk for exposure to help minimize scarring. You can also use scar reducing creams or Vitamin E oil to help minimize scarring. For pain control, you can use the following [id number] medicines (if >12 yo): - Regular strength (325mg/tab) Tylenol (acetaminophen) 2 tabs every 4-6 hours as needed. Do not exceed 12 tablets in a 24 hour period. Avoid taking more than 4 grams (4000 mg) of Tylenol per day. This includes any other sources of acetaminophen you may take on a regular basis. - Regular strength (200 mg/tab) Advil (ibuprofen) 1-2 tabs every 4-6 hours as needed. Do not exceed a dose of 3200 mg per day. Follow-up with your primary care provider this week. Return to the emergency department if your symptoms worsen despite treatment course outlined above. Problem Qualifiers Primary Impression: Fall Encounter type: initial encounter Qualified Codes: W19.XXXA - Unspecified fall, initial encounter Additional Impressions: Laceration of right lower leg Encounter type: initial encounter Qualified Codes: S81.811A - Laceration without foreign body, right lower leg, initial encounter
[2016-08-19 00:26] VITALS: BP 151/106; PULSE 115; O2SAT 92
[2016-09-05] MEDS ORDERED: DXY100 PO (13:30)
[2016-09-05] MEDS ORDERED: ROSU20TA PO (14:30)
[2017-01-10] MEDS ORDERED: VANC1INJ94 IV (10:52)
[2017-01-11] MEDS ORDERED: DIPH25CA50 PO (09:33)
== END 2016-08-19 00:27 | disposition home or self-care (01) ==
LOC: C.EDB 21:26
DX: S81.811A Laceration without foreign body, right lower leg, initial encounter (principal); T14.8 Other injury of unspecified body region; W17.89XA Other fall from one level to another, initial encounter; Y92.89 Other specified places as the place of occurrence of the external cause; E11.9 Type 2 diabetes mellitus without complications; I10 Essential (primary) hypertension; E78.5 Hyperlipidemia, unspecified; E03.9 Hypothyroidism, unspecified; K21.9 Gastro-esophageal reflux disease without esophagitis; J45.909 Unspecified asthma, uncomplicated; F32.9 Major depressive disorder, single episode, unspecified; F41.9 Anxiety disorder, unspecified; M17.9 Osteoarthritis of knee, unspecified; Z86.718 Personal history of other venous thrombosis and embolism; Z87.440 Personal history of urinary (tract) infections; Z87.820 Personal history of traumatic brain injury; Z87.828 Personal history of other (healed) physical injury and trauma; Z98.890 Other specified postprocedural states; Z79.899 Other long term (current) drug therapy; Z88.2 Allergy status to sulfonamides; Z88.6 Allergy status to analgesic agent; Z88.8 Allergy status to other drugs, medicaments and biological substances; Z91.040 Latex allergy status; Z83.3 Family history of diabetes mellitus; Z80.9 Family history of malignant neoplasm, unspecified; Z82.49 Family history of ischemic heart disease and other diseases of the circulatory system; Z83.79 Family history of other diseases of the digestive system; Z84.1 Family history of disorders of kidney and ureter

== ENCOUNTER 2016-08-25 18:56 | Emergency (ER) | payer OTHER ==
[~2016-08-25] VITALS: Ht 154.9 cm; Wt 106.5 kg
[~2016-08-25 18:56] MED LIST changes: -LDDP5 TD
[2016-08-25 19:05] VITALS: TEMP 37.2; Ht 154.9 cm; Wt 106.5 kg
[2016-08-25] MEDS ORDERED: MUPIROCIN 2% OINT 22 GM TUBE EXT STA (19:47)
[2016-08-25] MEDS ORDERED: CEPHALEXIN 500MG HOME PACK 1 EA BTL PO ONE (20:00)
[2016-08-25] MEDS ORDERED: FLUCONAZOLE 50 MG TAB PO ONE (20:00)
[2016-08-25] MEDS ORDERED: DOXYCYCLINE HYCLATE 100 MG CAP PO ONE (20:00)
[2016-08-25] MEDS ORDERED: DOXY100C76 PO (20:14)
[2016-08-25] MEDS ORDERED: CEPH500C PO (20:14)
[2016-08-25 21:00] VITALS: BP 144/106; PULSE 77; O2SAT 96
--- NOTE | 2016-08-25 22:46 | EMERGENCY ROOM VISIT NOTE ---
History Report prepared by Mynor: Som Foy Under the Supervision of: Dr. Charles Garcia M.D. First contact with patient: 19:28 Chief Complaint: INFECTION Stated Complaint: RECHECK STITCHES, INFECTED History of Present Illness The patient is a 55 year old female who presents to the Emergency Room with complaints of worsening pain and erythema around an area of stitches in the right leg that the patient first noticed today, several hours prior to arrival. The patient states that she received the stitches 7 days ago after she fell onto broken glass [place]. She states that she has a history of being susceptible to infection and frequently gets MRSA infections. The patient also notes having the chills throughout the day today. She denies LOC, headache, diaphoresis, visual changes, neck pain, chest pain, breathing difficulties, nausea, vomiting , abdominal pain, back pain, melena, hematochezia, urinary symptoms, numbness, weakness, lymphadenopathy, rash, or other complaints. Source of History: patient Onset: Several days [employer] Position: leg (right) Quality: other (infection) Timing: worsening Associated Symptoms: + chills, No SOB, No headache Review of Systems See HPI for pertinent positives and negatives. A total of ten systems were reviewed and were otherwise negative. Past Medical & Surgical Medical Problems: (1) Abdominal pain (2) Acute renal failure (3) ELIO (acute kidney injury) (4) Anxiety State Nos (5) Asthma (6) Back pain (7) Back pain (8) CHI (closed head injury) (9) Contusion of multiple sites (10) Contusion of multiple sites (11) Contusion of third finger, right (12) Degenerative arthritis of knee (13) Dehydration (14) Depressive Disorder Nec (15) Diab Niyah Wo Compl, Type Ii Or Unspec Type, Not Uncntrld (16) Esophageal Reflux (17) Fall (18) Fall due to slipping on ice or snow (19) Foot pain (20) Hx-Venous Thrombosis&Embolism (21) Hyperlipidemia Nec/Nos (22) Hypertension (23) Hypotension (24) Hypotension (25) Hypothyroidism Nos (26) Knee contusion (27) Left wrist pain (28) Leukocytosis (29) Lumbar Disc Displacement (30) Lumbar strain (31) Lumbosacral Neuritis Nos (32) Morbid Obesity (33) Nausea and vomiting (34) Nausea, vomiting, and diarrhea (35) Osteoporosis Nos (36) Post concussion syndrome (37) Right flank pain (38) SIRS (systemic inflammatory response syndrome) (39) Splenosis (40) UTI (urinary tract infection) Surgical Problems: (1) Hx of appendectomy (2) Hx of hernia repair Family History Asthma Diabetes mellitus FHx: cancer FHx: heart failure Gallbladder disease Heart disease Hypertension Kidney stones Social History Smoking Status: Former Smoker Alcohol Use: none Drug Use: none Marital Status: single Housing Status: lives with family Occupation Status: employed Current/Historical Medications Scheduled Amitriptyline Hcl (Amitriptyline Hcl), 50 MG PO HS Cephalexin Monohydrate (Keflex), 500 MG PO QID Doxycycline Monohydrate (Monodox), 100 MG PO BID Fluoxetine (Prozac), 40 MG PO HS Fluticasone Prop/Salmeterol (Advair Diskus 500/50 60 Dose), 1 PUFF INH BID Gabapentin (Neurontin), 800 MG PO TID Levothyroxine Sodium (Synthroid), 150 MCG PO QAM Metoprolol Tartrate (Lopressor) (Lopressor), 25 MG PO QAM Metoprolol Tartrate (Lopressor) (Lopressor), 50 MG PO QPM Montelukast Sodium (Singulair), 10 MG PO QAM Omeprazole (Prilosec), 40 MG PO QAM Oxycodone Ir (Roxicodone Ir), 20 MG PO Q6H Pioglitazone (Actos), 30 MG PO QAM Scheduled PRN Acetamin/Butalbital/Caffeine (Fioricet), 1 TAB PO UD PRN for Migraine Acetaminophen-Caffeine (Excedrin Tension Headache), 2 TABS PO Q6H PRN for Headache Albuterol Hfa (Ventolin Hfa), 2 PUFFS INH QID PRN for Wheezing Albuterol Sulf (Albuterol Sulfate), 1 DOSE NEB Q4 PRN for Wheezing Loratadine (Claritin), 10 MG PO DAILY PRN for Allergy Symptoms Midodrine (Midodrine HCl), 1 TAB PO UD PRN for Migraine Allergies Coded Allergies: Aspirin (Verified Allergy, Severe, SHORT OF BREATH, 08/25/16) Ketorolac Tromethamine (Verified Allergy, Severe, SHORTNESS OF BREATH, ) Latex2 -Systemic Allergic Response (Verified Allergy, Severe, DIFFICULTY BREATHING, 08/25/16) NSAIDs (Verified Allergy, Severe, SHORT OF BREATH, 08/25/16) Sulfa Antibiotics (Verified Allergy, Unknown, UNKNOWN- HAD RXN WHEN LITTLE , 08/25/16) Simvastatin (Verified Adverse Reaction, Intermediate, myalgias, 08/25/16) Metformin (Verified Adverse Reaction, Mild, GI SYMPTOMS, 08/25/16) Physical Exam Vital Signs Date Time Temp Pulse Resp B/P Pulse Ox O2 Delivery O2 Flow Rate FiO2 08/25/16 21:00 77 20 144/106 96 08/25/16 19:05 37.2 81 20 193/111 95 Room Air Physical Exam GENERAL: Awake, alert, well-appearing, in no distress HENT: Normocephalic, atraumatic. Oropharynx unremarkable. EYES: Normal conjunctiva. Sclera non-icteric. RESPIRATORY: Clear to auscultation. CARDIAC: Regular rate, normal rhythm. Extremities warm and well perfused. Pulses equal. ABDOMEN: Soft, non-distended. No tenderness to palpation. No rebound or guarding. No masses. MUSCULOSKELETAL: Calves are equal size bilaterally and non-tender. No edema. See skin examination NEURO: Normal sensorium. No sensory or motor deficits noted. SKIN: There is a 4 by 5 cm area of erythema around site of stitches. Mild purulent drainage noted. Culture was obtained. Medical Decision & Procedures Medications Administered Medications (Trade) Dose Ordered Sig/Sid Route Start Time Stop Time Status Last Admin Dose Admin Mupirocin (Bactroban 2% Oint) 1 appln NOW STAT EXT 08/25/16 19:47 08/25/16 19:54 DC 08/25/16 20:40 1 APPLN Doxycycline Hyclate (Vibramycin Cap) 200 mg ONE ONCE PO 08/25/16 20:00 08/25/16 20:01 DC 08/25/16 20:39 200 MG Cephalexin Monohydrate (Keflex 500MG Home Pack) 1 homepack NOW ONCE PO 08/25/16 20:00 08/25/16 20:01 DC 08/25/16 20:39 1 HOMEPACK Fluconazole (Diflucan Tab) 150 mg NOW ONCE PO 08/25/16 20:00 08/25/16 20:01 DC 08/25/16 20:39 150 MG Procedure PROCEDURE: Single stitch removed, purulent drainage expressed, culture taken. ED Course 193: The patient was evaluated in room B8. A complete history and physical exam was performed. 1946: Ordered Mupirocin 1 application, 1999: Diflucan 150 mg PO, Cephalexin 1 homepack PO, Doxycycline 200 mg PO. 2013: Following expression of the purulent drainage the patient's wound was covered. The patient will be discharged home. Medical Decision Prior records reviewed and summarized as above. Triage Nursing notes reviewed and agree them. The patient's history was concerning for swelling and redness of the skin surrounding the wound. Differential diagnosis: Etiologies such as cellulitis, necrotizing fasciitis, abscess, MRSA infection, dermatitis, as well as others were entertained.. Physical examination: The physical examination was consistent with cellulitis and small stitch abscess ER treatment provided: Bactroban ointment Keflex Doxycycline The patient is allergic to sulfa Diagnostics interpreted by me: Wound culture obtained The patient has a history of MRSA. There is cellulitis and a small stitch abscess present. I discussed conservative management with the patient. She would like to try antibiotics as opposed to opening the wound at this point in time. Removal of one stitch allow drainage from the suture channel quite easily. Hopefully this is all that it would take but I did discuss that it may be necessary to formally open the wound which would then entail on much longer course of healing. If the patient worsens she will be coming back to the emergency department. The patient is on chronic pain management and will continue to use her medication for pain control. I gave my usual and customary discussion regarding this issue. By the evaluation outlined above emergent etiologies such as drug eruption, necrotizing fasciitis, DVT, as well as others were deemed relatively unlikely. The patient was informed about the findings as listed above. All questions were answered and she was pleased with the treatment. Return instructions were outlined and the patient was discharged in stable condition. Outpatient prescription management: Keflex Doxycycline Referral: The patient was referred back to her primary care physician for follow-up for a recheck of the current condition. She is scheduled to return to the Emergency Room in 3 days for suture removal. The chart was completed utilizing [employer] voice recognition software. Grammatical errors, random word insertions, pronoun errors, and incomplete sentences are an occasional consequence of this system due to software limitations, ambient noise, and hardware issues. Any formal questions or concerns about the content, text, or information contained within the body of this dictation should be directly addressed to the physician for clarification. [place] Drug Monitoring Program Search Results: patient reviewed within database, see additional documentation Drug Monitoring Findings: Patient has multiple prescriptions written from multiple physicians. Impression Primary Impression: Wound infection Additional Impression: Infection involving stitch with abscess Scribe Attestation The scribe's documentation has been prepared under my direction and personally reviewed by me in its entirety. I confirm that the note above accurately reflects all work, treatment, procedures, and medical decision making performed by me. Departure Information Dispostion Home / Self-Care Prescriptions Doxycycline Monohydrate (Monodox) 100 Mg Cap 100 MG PO BID, #18 CAP Prov: Charles Garcia MD 08/25/16 Cephalexin Monohydrate (Keflex) 500 Mg Cap 500 MG PO QID, #36 CAP Prov: Charles Garcia MD 08/25/16 Referrals Norberto Anderson MD (PCP) Forms HOME CARE DOCUMENTATION FORM, IMPORTANT VISIT INFORMATION, WORK / SCHOOL INSTRUCTIONS Patient Instructions My [facility] Additional Instructions CELLULITIS INSTRUCTIONS: Cephalexin(Keflex) 500mg: Take one pill four times daily for 10 days for your skin infection. All antibiotics can cause diarrhea. If this occurs and you feel worse or it does not resolve in 1-2 days follow up with your doctor or return to the Emergency Department as this could be signs of serious underlying problems. Any medication can cause an allergic reaction, stop the pills immediately and return to the ER for rash, hives, breathing difficulties, or swelling. Doxycycline 100mg: Take one pill twice daily for 10 days for your infection. Take with food, but avoid dairy. Avoid prolonged sun exposure since this medication makes you temporarily more susceptible to sunburns. All antibiotics can cause diarrhea. If this occurs and you feel worse or it does not resolve in 1-2 days follow up with your doctor or return to the Emergency Department as this could be signs of serious underlying problems. Any medication can cause an allergic reaction, stop the pills immediately and return to the ER for rash, hives, breathing difficulties, or swelling. Ibuprofen(Motrin, Advil) may be used for fever or pain. Use 600mg every six hours as needed. Take with food. Avoid using more than 2400mg in a 24 hour period. Do not use 2400mg per day for more than three consecutive days without physician direction. Prolonged inappropriate use can lead to stomach upset or ulcers. (AND/OR) Acetaminophen(Tylenol) may be used for fever or pain. Use 1000mg every six hours as needed. Avoid using more than 4000mg in a 24 hour period. Warm compresses to the affected area 4 times daily for 15-20 minutes. Rest and drink plenty of fluids. Continue current medications. Bactroban to the wound twice daily. Change the wound dressing twice daily. Return to the ER for severe pain, persistent fevers, spreading redness, or any worsening of your condition. Follow up with your primary physician within 2-3 days for a recheck of the current condition. Problem Qualifiers
[2016-09-05] MEDS ORDERED: DXY100 PO (13:30)
[2016-09-05] MEDS ORDERED: ROSU20TA PO (14:30)
[2017-01-10] MEDS ORDERED: VANC1INJ94 IV (10:52)
[2017-01-11] MEDS ORDERED: DIPH25CA50 PO (09:33)
== END 2016-08-25 21:00 | disposition home or self-care (01) ==
LOC: C.EDB 18:57
DX: T81.4XXA Infection following a procedure, initial encounter (principal); W22.8XXA Striking against or struck by other objects, initial encounter; W45.8XXA Other foreign body or object entering through skin, initial encounter; E11.9 Type 2 diabetes mellitus without complications; I10 Essential (primary) hypertension; E03.9 Hypothyroidism, unspecified; K21.9 Gastro-esophageal reflux disease without esophagitis; F32.9 Major depressive disorder, single episode, unspecified; M81.0 Age-related osteoporosis without current pathological fracture; Z87.440 Personal history of urinary (tract) infections; Z87.891 Personal history of nicotine dependence; Z87.820 Personal history of traumatic brain injury; Z79.899 Other long term (current) drug therapy; Z91.040 Latex allergy status; Z88.2 Allergy status to sulfonamides; Z88.6 Allergy status to analgesic agent; Z88.8 Allergy status to other drugs, medicaments and biological substances; Z83.3 Family history of diabetes mellitus; Z80.9 Family history of malignant neoplasm, unspecified; Z82.49 Family history of ischemic heart disease and other diseases of the circulatory system; Z83.79 Family history of other diseases of the digestive system; Z84.1 Family history of disorders of kidney and ureter

== ENCOUNTER 2016-08-30 03:56 | Inpatient (IN) | payer OTHER ==
[~2016-08-30] VITALS: Ht 154.9 cm; Wt 107.0 kg
[~2016-08-30 03:56] MED LIST changes: +CEPH500C PO; +DOXY100C76 PO
[2016-08-30] MEDS ORDERED: LIDOCAINE HCL 2% VISC SOLN 20 ML UDC ONE (04:10)
[2016-08-30] MEDS ORDERED: ALUMINUM/MAGNESIUM SUSP 30 ML UDC ONE (04:10)
--- NOTE | 2016-08-30 04:17 | EMERGENCY ROOM VISIT NOTE ---
History Report prepared by Mynor: Marly Suazo Under the Supervision of: Dr. Stephy Tineo D.O. First contact with patient: 03:59 Chief Complaint: CHEST PAIN Stated Complaint: CHEST PAIN, HEART BURN, RT ARM PAIN History of Present Illness The patient is a 55 year old female who presents to the Emergency Room with complaints of persistent chest pain that began around 0325. The patient states that this evening she ate pizza for dinner, noting that she does not typically eat greasy foods. She states that she brought a friend to the emergency department last evening. The patient states that while in the department she developed a burning pain in her chest and right arm. She states that she was going to try and go home and drink baking soda mixed with water, but notes that is when her right arm became weak, numb, tingling, and heavy. The patient additionally notes that prior to leaving the emergency department she vomited, and when she arrived home she vomited a second time. The patient states that she has a history of heart burn and states that she takes Omeprazole, which typically keeps her heart burn under control. She states that she has taken TUMS without relief of her symptoms. The patient notes a strong family history of heart disease, but denies any personal history of heart disease. She denies any shortness of breath or abdominal pain. Source of History: patient Onset: 324 Position: chest Quality: burning Timing: other (persistent) Associated Symptoms: + vomiting, No SOB, No abdominal pain Note: Associated symptoms: right arm pain, numbness, tingling, weakness, and heaviness Review of Systems See HPI for pertinent positives & negatives. A total of 10 systems reviewed and were otherwise negative. Past Medical & Surgical Medical Problems: (1) Abdominal pain (2) ACS (acute coronary syndrome) (3) Acute renal failure (4) ELIO (acute kidney injury) (5) Anxiety State Nos (6) Asthma (7) Back pain (8) Back pain (9) CHI (closed head injury) (10) Contusion of multiple sites (11) Contusion of multiple sites (12) Contusion of third finger, right (13) Degenerative arthritis of knee (14) Dehydration (15) Depressive Disorder Nec (16) Diab Niyah Wo Compl, Type Ii Or Unspec Type, Not Uncntrld (17) Esophageal Reflux (18) Fall (19) Fall due to slipping on ice or snow (20) Foot pain (21) Hx-Venous Thrombosis&Embolism (22) Hyperlipidemia Nec/Nos (23) Hypertension (24) Hypotension (25) Hypotension (26) Hypothyroidism Nos (27) Knee contusion (28) Left wrist pain (29) Leukocytosis (30) Lumbar Disc Displacement (31) Lumbar strain (32) Lumbosacral Neuritis Nos (33) Morbid Obesity (34) Nausea and vomiting (35) Nausea, vomiting, and diarrhea (36) Osteoporosis Nos (37) Post concussion syndrome (38) Right flank pain (39) SIRS (systemic inflammatory response syndrome) (40) Splenosis (41) UTI (urinary tract infection) Surgical Problems: (1) Hx of appendectomy (2) Hx of hernia repair Family History Asthma Diabetes mellitus FHx: cancer FHx: heart failure Gallbladder disease Heart disease Hypertension Kidney stones Social History Smoking Status: Former Smoker Alcohol Use: none Drug Use: none Marital Status: single Housing Status: lives with family Occupation Status: employed Current/Historical Medications Scheduled Amitriptyline Hcl (Amitriptyline Hcl), 50 MG PO HS Fluoxetine (Prozac), 40 MG PO HS Fluticasone Prop/Salmeterol (Advair Diskus 500/50 60 Dose), 1 PUFF INH BID Gabapentin (Neurontin), 800 MG PO TID Levothyroxine Sodium (Synthroid), 150 MCG PO QAM Metoprolol Tartrate (Lopressor) (Lopressor), 25 MG PO QAM Metoprolol Tartrate (Lopressor) (Lopressor), 50 MG PO QPM Montelukast Sodium (Singulair), 10 MG PO QAM Omeprazole (Prilosec), 40 MG PO QAM Oxycodone Ir (Roxicodone Ir), 20 MG PO Q6H Pioglitazone (Actos), 30 MG PO QAM Topiramate (Topamax), 100 MG PO BID Scheduled PRN Acetamin/Butalbital/Caffeine (Fioricet), 1 TAB PO UD PRN for Migraine Acetaminophen-Caffeine (Excedrin Tension Headache), 2 TABS PO Q6H PRN for Headache Albuterol Hfa (Ventolin Hfa), 2 PUFFS INH QID PRN for Wheezing Albuterol Sulf (Albuterol Sulfate), 1 DOSE NEB Q4 PRN for Wheezing Loratadine (Claritin), 10 MG PO DAILY PRN for Allergy Symptoms Midodrine (Midodrine HCl), 1 TAB PO UD PRN for Migraine Allergies Coded Allergies: Aspirin (Verified Allergy, Severe, SHORT OF BREATH, 08/25/16) Cephalexin (Verified Allergy, Severe, EDEMA OF FACE,LIPS,TONGUE, 08/30/16) Ketorolac Tromethamine (Verified Allergy, Severe, SHORTNESS OF BREATH, ) Latex2 -Systemic Allergic Response (Verified Allergy, Severe, DIFFICULTY BREATHING, 08/25/16) NSAIDs (Verified Allergy, Severe, SHORT OF BREATH, 08/25/16) Sulfa Antibiotics (Verified Allergy, Unknown, UNKNOWN- HAD RXN WHEN LITTLE , 08/25/16) Simvastatin (Verified Adverse Reaction, Intermediate, myalgias, 08/25/16) Metformin (Verified Adverse Reaction, Mild, GI SYMPTOMS, 08/25/16) Physical Exam Vital Signs Date Time Temp Pulse Resp B/P Pulse Ox O2 Delivery O2 Flow Rate FiO2 08/30/16 06:01 86 14 08/30/16 06:00 151/102 97 Nasal Cannula 2.0 08/30/16 05:58 143/91 08/30/16 05:57 144/101 08/30/16 05:56 85 19 08/30/16 05:53 97 Nasal Cannula 2.0 08/30/16 05:51 84 19 08/30/16 05:46 81 17 08/30/16 05:41 86 15 08/30/16 05:36 83 24 08/30/16 05:33 79 08/30/16 05:31 81 20 08/30/16 05:26 92 17 08/30/16 05:21 77 18 08/30/16 05:20 153/113 08/30/16 05:19 78 20 153/113 97 Room Air 08/30/16 05:18 78 20 156/124 98 Room Air 08/30/16 05:17 156/124 08/30/16 05:16 81 19 08/30/16 05:11 77 20 08/30/16 05:06 78 16 08/30/16 05:01 79 19 08/30/16 04:56 80 22 08/30/16 04:54 78 20 117/74 98 Room Air 08/30/16 04:53 117/74 08/30/16 04:51 87 17 08/30/16 04:46 78 22 08/30/16 04:41 74 23 08/30/16 04:36 79 20 08/30/16 04:31 77 17 08/30/16 04:26 76 23 08/30/16 04:21 78 26 08/30/16 04:16 82 21 08/30/16 04:11 85 18 100 08/30/16 04:07 85 08/30/16 04:06 85 20 99 08/30/16 04:05 97 Nasal Cannula 2.0 08/30/16 04:03 163/110 08/30/16 04:02 Room Air 08/30/16 04:02 36.3 85 22 163/110 98 Room Air Physical Exam General: Obese, female who appears uncomfortable on exam. HEENT: Head - normocephalic and atraumatic Pupils are equal, round, and reactive to light. Extraocular eye muscles are intact, and sclera are anicteric. Nose - moist nasal mucosa without discharge. Mouth - moist buccal mucosa. Oropharynx is nonerythematous and there is no tonsillar exudate or edema noted. Neck: Supple; no JVD, nuchal rigidity, cervical lymphadenopathy, or auscultated bruits. Heart: Heart sounds are distant, secondary to body habitus. Regular rate and rhythm. There is a normal S1 and S2 with no murmurs, clicks, or gallops appreciated. Lungs: Clear to auscultation bilaterally with no wheezes, rales, or rhonchi. Abdomen: Soft, completely nontender, nondistended, with good bowel sounds. There are no palpable pulsatile masses or hepatosplenomegaly. There is no guarding, rigidity, or rebound noted. Extremities: Healing wound to her right lower extremity. No evidence of cyanosis , clubbing, or edema. There are easily palpable peripheral pulses. Skin: Cold and dry with good turgor and no rashes. Medical Decision & Procedures ER Provider Diagnostic Interpretation: 1 view chest x-ray interpreted by me: narrow mediastinum, no pulmonary infiltrates, no pneumothorax. Laboratory Results Test 08/30/16 00:00 08/30/16 04:40 08/30/16 05:50 08/30/16 06:05 Lactic Acid Level 1.2 mmol/L (0.4-2.0) Immature Granulocyte % (Auto) 0.4 % White Blood Count 24.31 K/uL (4.8-10.8) Red Blood Count 5.31 M/uL (4.2-5.4) Hemoglobin 15.3 g/dL (12.0-16.0) Hematocrit 46.5 % (37-47) Mean Corpuscular Volume 87.6 fL (80-100) Mean Corpuscular Hemoglobin 28.8 pg (25-34) Mean Corpuscular Hemoglobin Concent 32.9 g/dl (32-36) Platelet Count 378 K/uL (130-400) Mean Platelet Volume 9.8 fL (7.4-10.4) Neutrophils (%) (Auto) 69.7 % Lymphocytes (%) (Auto) 17.9 % Monocytes (%) (Auto) 10.2 % Eosinophils (%) (Auto) 1.3 % Basophils (%) (Auto) 0.5 % Neutrophils # (Auto) 16.93 K/uL (1.4-6.5) Lymphocytes # (Auto) 4.36 K/uL (1.2-3.4) Monocytes # (Auto) 2.47 K/uL (0.11-0.59) Eosinophils # (Auto) 0.32 K/uL (0-0.5) Basophils # (Auto) 0.13 K/uL (0-0.2) Immature Granulocyte # (Auto) 0.10 K/uL (0.00-0.02) Nucleated RBC Absolute Count (auto) 0.00 K/uL (0-0) Nucleated Red Blood Cells % 0.0 % Est Creatinine Clear Calc Drug Dose 30.5 ml/min Globulin 3.7 gm/dl (2.5-4.0) Albumin/Globulin Ratio 1.2 (0.9-2) Lipase 202 U/L (73-393) Bedside Lactic Acid Venous 3.26 mmol/L (0.90-1.70) Urine Color DK YELLOW Urine Appearance TURBID (CLEAR) Urine pH 5.0 (4.5-7.5) Urine Specific Kelly 1.028 (1.000-1.030) Urine Protein 2+ (NEG) Urine Glucose (UA) NEG (NEG) Urine Ketones TRACE (NEG) Urine Occult Blood NEG (NEG) Urine Nitrite NEG (NEG) Urine Bilirubin 1+ (NEG) Urine Urobilinogen NEG (NEG) Urine Leukocyte Esterase TRACE (NEG) Urine WBC (Auto) 10-30 /hpf (0-5) Urine RBC (Auto) 0-4 /hpf (0-4) Urine Hyaline Casts (Auto) 5-10 /lpf (0-5) Urine Epithelial Cells (Auto) >30 /lpf (0-5) Urine Bacteria (Auto) 1+ (NEG) Urine Renal Epithelial Cells /lpf (0-5) Urine Crystals CALCIUM OXALATE (NONE Urine Pathogenic Casts /lpf (0) Urine Mucus PRESENT (NONE PRSENT) Urine Yeast (Auto) (NONE PRSENT) Laboratory results per my review. Medications Administered Medications (Trade) Dose Ordered Sig/Sid Route Start Time Stop Time Status Last Admin Dose Admin Al Hydroxide/Mg Hydroxide (Maalox Susp) 30 ml STK-MED ONCE .ROUTE 08/30/16 04:10 08/30/16 04:12 DC 08/30/16 04:25 30 ML Lidocaine HCl (Viscous Lidocaine 2% Soln) 20 ml STK-MED ONCE .ROUTE 08/30/16 04:10 08/30/16 04:13 DC 08/30/16 04:25 20 ML Nitroglycerin (Nitrostat Tab) 0.4 mg Q5M STAT SL 08/30/16 04:27 08/30/16 04:28 DC 08/30/16 05:55 0.4 MG Nitroglycerin 1 inch 1 inch STK-MED ONCE .ROUTE 08/30/16 05:51 08/30/16 05:52 DC 08/30/16 05:56 1 INCH Sodium Chloride (Nss 1000ml) 1,000 ml @ 100 mls/hr Q10H IV 08/30/16 06:02 09/29/16 06:01 08/31/16 01:38 100 MLS/HR Procedure The patient was treated with Lidocaine HCl 20 ml .route, Maalox Susp 30 ml .route, Nitroglycerin 0.4 mg SL, Nitroglycerin 1 inch .route, Sodium Chloride 1000 ml @ 100 mls/hr IV, Imipenem/Cilastatin Sodium 500 mg/Dextrose 110 ml @ 100 mls/hr IV, Daptomycin 600 mg/Sodium Chloride 62 ml @ 100 mls/hr IV. ECG Indication: chest pain Rate (beats per minute): 86 Rhythm: normal sinus Findings: ST depression (V2), no ectopy Comparison ECG Date: 11/08/15 Change: EKG Change: when compared to EKG on 11/08/15, ST segment depressions are new. Repeat EKG is unchanged. ED Course 0404: Past medical records reviewed. The patient was evaluated in room B10. A complete history and physical exam was performed. Multiple attempts were made at establishing an IV lock. 0410: Ordered Lidocaine HCl 20 ml .route, Maalox Susp 30 ml .route. 0425: I reevaluated the patient and the GI cocktail did not alleviate her symptoms. She is going to get nitroglycerin, but the patient notes that she gets a terrible headache from nitroglycerin. 0427: Ordered Nitroglycerin 0.4 mg SL. 0457: I reevaluated the patient and she still has not had an IV line established. I attempted a peripheral IV line in the left forearm. This was unsuccessful. The patient was noted to have a significant leukocytosis. A septic protocol was performed. 0527: I reevaluated the patient and she is resting. I performed a femoral stick in the patient's left groin at this time to draw blood. Additionally at this time, the patient went into a wide complex tachycardia. I discussed all the exam findings with her and I discussed the treatment plan. She verbalized complete understanding and agreement. She is going to be evaluated for further treatment. 0544: I discussed the patients case with Dr. Duffy [facility] [place]. He is going to evaluate the patient for further treatment. 0551: Ordered Nitroglycerin 1 inch .route. 0602: Ordered Sodium Chloride 1000 ml @ 100 mls/hr IV. 0613: Because of the significant leukocytosis, I Ordered Imipenem/Cilastatin Sodium 500 mg/Dextrose 110 ml @ 100 mls/hr IV, Daptomycin 600 mg/Sodium Chloride 62 ml @ 100 mls/hr IV. Medical Decision The patient is a 55 year old female who presents to the ED with chest pain. Differential diagnosis includes aortic dissection, GERD, STEMI, acute coronary syndrome, pleurisy, pyelonephritis. Lab interpretation: White count 24.3, creatinine 2.3, BUN 19, glucose 158, LFTs are normal, cardiac enzymes are negative, lipase 202. The patient was an extremely hard IV stick. She got no relief from a GI cocktail. Substernal chest discomfort continued. She was given a sublingual nitroglycerin and had Nitropaste placed. This did seem to help the discomfort in her chest. The patient did have an episode of wide complex tachycardia as we were trying to establish an IV lock. This could represent A. fib with aberrancy. It seemed to resolve on its own. The patient was placed on IV fluids once the lock was established as she has evidence of acute kidney injury. The source of the patient's infection has not yet been identified. She was started on prophylactic/antibiotics. I discussed the case with the [facility] Hospitalist and they will evaluate for further management. Consults Time Called: [id number] Consulting Physician: LAKESHA Trujillo Returned Call: [phone] I discussed the patients case with LAKESHA Trujillo. He is going to evaluate the patient for further treatment. Impression Primary Impression: Acute renal failure Additional Impressions: Substernal chest pain Wide-complex tachycardia Scribe Attestation The scribe's documentation has been prepared under my direction and personally reviewed by me in its entirety. I confirm that the note above accurately reflects all work, treatment, procedures, and medical decision making performed by me. Departure Information Dispostion Being Evaluated By Hospitalist Referrals Norberto Anderson MD (PCP) Problem Qualifiers
[2016-08-30] MEDS ORDERED: NITROGLYCERIN 0.4 MG SL PER TAB CHARGE SL STA (04:27)
[2016-08-30 04:59] LABS: HEMATOCRIT 46.5 % (37-47); MEAN CELL VOLUME 87.6 fL (80-100); MEAN CORPUSCULAR HEMOGLOBIN 28.8 pg (25-34); MEAN CORPUSCULAR HGB CONC 32.9 g/dl (32-36); MEAN PLATELET VOLUME 9.8 fL (7.4-10.4); PLATELET COUNT 378 K/uL (130-400); RED BLOOD COUNT 5.31 M/uL (4.2-5.4); WHITE BLOOD COUNT 24.31 K/uL (4.8-10.8)
[2016-08-30 05:12] LABS: ALT/SGPT 18 U/L (12-78); AST/SGOT 14 U/L (15-37); BLOOD UREA NITROGEN 19 mg/dl (7-18); BUN/CREATININE RATIO 8.1 (10-20); CALCIUM 9.2 mg/dl (8.5-10.1); CARBON DIOXIDE 24 mmol/L (21-32); CHLORIDE 102 mmol/L (98-107); GLUCOSE 158 mg/dl (70-99); SODIUM 138 mmol/L (136-145)
[2016-08-30 05:14] LABS: ALB/GLOB RATIO 1.2 (0.9-2); ALKALINE PHOSPHATASE 130 U/L (45-117); CKMB/CK RATIO 2.2 (0-3.0)
[2016-08-30 05:31] LABS: BASO % 0.5 %; BASO ABS # 0.13 K/uL (0-0.2); COMPLETE YES; EOS % 1.3 %; IG% 0.4 %; LYMPH % 17.9 %; LYMPH ABS # 4.36 K/uL (1.2-3.4); MONO % 10.2 %; NEUT % 69.7 %
[2016-08-30] MEDS ORDERED: ACT30 PO (05:32)
[2016-08-30] MEDS ORDERED: TOPI100T20 PO (05:33)
[2016-08-30] MEDS ORDERED: NITROGLYCERIN OINT 2% 1GM PACKET ONE ×2 (05:51→05:57)
[2016-08-30] MEDS ORDERED: DAPTOmycin IV 600 MG in SODIUM CHLORIDE 0.9% 50ML 50 ML IV STA (06:13)
[2016-08-30] MEDS ORDERED: IMIPENEM/CILASTATIN IV 500 MG in DEXTROSE 5% 100ML 100 ML IV STA (06:13)
[2016-08-30] MEDS ORDERED: DEXTROSE 50% 50 ML SYR IV PRN (06:15)
[2016-08-30] MEDS ORDERED: GLUCOSE 10 TABS/TUBE PO PRN (06:15)
[2016-08-30] MEDS ORDERED: GLUCAGON FOR INJ 1 MG VIAL SQ PRN (06:15)
[2016-08-30] MEDS ORDERED: GLUCOSE 40% GEL 15 GM TUBE PO PRN (06:15)
[2016-08-30] MEDS ORDERED: LORATADINE 10 MG TAB PO PRN (06:15)
[2016-08-30] MEDS ORDERED: LEVALBUTEROL/IPRATROPIUM NEB INH PRN (06:15)
[2016-08-30 06:24] LABS: URINE APPEARANCE TURBID (CLEAR); URINE BILIRUBIN 1+ (NEG); URINE COLOR DK YELLOW; URINE EPITHELIAL CELL AUTO >30 /lpf (0-5); URINE NITRITE NEG (NEG); URINE SPECIFIC GRAVITY 1.028 (1.000-1.030); UROBILINOGEN NEG (NEG)
[2016-08-30 06:25] LABS: MANUAL MICROSCOPIC REQUIRED? NO; REVIEW REQ? YES
--- NOTE | 2016-08-30 06:33 | History and Physical ---
History & Physical Date & Time of Service: August 30, 2016 at 06:34 Chief Complaint: Chest Pain, Heart Burn, Rt Arm Pain Primary Care Physician: Norberto Anderson MD History of Present Illness Source: patient The patient is a 55-year-old female who presents emergency department with persistent chest pain that began around 325 this a.m. She ate pizza earlier in the evening for dinner, that may have been questionable because she usually doesn't eat greasy foods. While in the emergency department with a friend last evening, she developed burning pain in her chest and right arm. Her right arm then became weak numb tingling and heavy. She reports her prior to leaving the emergency department she vomited and when she arrived home she vomited a second time. With the persistence of the chest and arm discomfort she returned emergency department to be assessed. Past Medical/Surgical History Medical Problems: (1) Abdominal pain Status: Resolved (2) ELIO (acute kidney injury) Status: Resolved (3) Anxiety State Nos Status: Chronic (4) Asthma Status: Chronic (5) Back pain Status: Resolved (6) Back pain Status: Resolved (7) CHI (closed head injury) Status: Resolved (8) Contusion of multiple sites Status: Resolved (9) Contusion of multiple sites Status: Resolved (10) Contusion of third finger, right Status: Resolved (11) Degenerative arthritis of knee Status: Chronic (12) Dehydration Status: Resolved (13) Depressive Disorder Nec Status: Chronic (14) Diab Niyah Wo Compl, Type Ii Or Unspec Type, Not Uncntrld Status: Chronic (15) Esophageal Reflux Status: Chronic (16) Fall Status: Resolved (17) Fall due to slipping on ice or snow Status: Resolved (18) Foot pain Status: Resolved (19) Hx-Venous Thrombosis&Embolism Status: Chronic (20) Hyperlipidemia Nec/Nos Status: Chronic (21) Hypertension Status: Chronic (22) Hypotension Status: Resolved (23) Hypotension Status: Resolved (24) Hypothyroidism Nos Status: Chronic (25) Knee contusion Status: Resolved (26) Left wrist pain Status: Resolved (27) Leukocytosis Status: Resolved (28) Lumbar Disc Displacement Status: Chronic (29) Lumbar strain Status: Resolved (30) Lumbosacral Neuritis Nos Status: Chronic (31) Morbid Obesity Status: Chronic (32) Nausea, vomiting, and diarrhea Status: Resolved (33) Osteoporosis Nos Status: Chronic (34) Post concussion syndrome Status: Resolved (35) Right flank pain Status: Resolved (36) Splenosis Status: Chronic Surgical Problems: (1) Hx of appendectomy Status: Resolved (2) Hx of hernia repair Status: Resolved Family History Asthma Diabetes mellitus FHx: cancer FHx: heart failure Gallbladder disease Heart disease Hypertension Kidney stones Social History Smoking Status: Former Smoker Smokeless Tobacco Use: No Alcohol Use: none Drug Use: none Marital Status: single Housing status: lives with family Occupational Status: employed Immunizations History of Influenza Vaccine: No Influenza Vaccine Date: Jan 07, 2013 History of Tetanus Vaccine?: Unknown History of Pneumococcal: Unknown Pneumococcal Date: Jan 08, 2012 History of Hepatitis B Vaccine: Unknown Multi-Drug Resistant Organisms History of MDRO: Yes Type of MDRO: MRSA Allergies Coded Allergies: Aspirin (Verified Allergy, Severe, SHORT OF BREATH, 08/25/16) Cephalexin (Verified Allergy, Severe, EDEMA OF FACE,LIPS,TONGUE, 08/30/16) Ketorolac Tromethamine (Verified Allergy, Severe, SHORTNESS OF BREATH, ) Latex2 -Systemic Allergic Response (Verified Allergy, Severe, DIFFICULTY BREATHING, 08/25/16) NSAIDs (Verified Allergy, Severe, SHORT OF BREATH, 08/25/16) Sulfa Antibiotics (Verified Allergy, Unknown, UNKNOWN- HAD RXN WHEN LITTLE , 08/25/16) Simvastatin (Verified Adverse Reaction, Intermediate, myalgias, 08/25/16) Metformin (Verified Adverse Reaction, Mild, GI SYMPTOMS, 08/25/16) Home Medications Scheduled Amitriptyline Hcl (Amitriptyline Hcl), 50 MG PO HS Fluoxetine (Prozac), 40 MG PO HS Fluticasone Prop/Salmeterol (Advair Diskus 500/50 60 Dose), 1 PUFF INH BID Gabapentin (Neurontin), 800 MG PO TID Levothyroxine Sodium (Synthroid), 150 MCG PO QAM Metoprolol Tartrate (Lopressor) (Lopressor), 25 MG PO QAM Metoprolol Tartrate (Lopressor) (Lopressor), 50 MG PO QPM Montelukast Sodium (Singulair), 10 MG PO QAM Omeprazole (Prilosec), 40 MG PO QAM Oxycodone Ir (Roxicodone Ir), 20 MG PO Q6H Pioglitazone (Actos), 30 MG PO QAM Topiramate (Topamax), 100 MG PO BID Scheduled PRN Acetamin/Butalbital/Caffeine (Fioricet), 1 TAB PO UD PRN for Migraine Acetaminophen-Caffeine (Excedrin Tension Headache), 2 TABS PO Q6H PRN for Headache Albuterol Hfa (Ventolin Hfa), 2 PUFFS INH QID PRN for Wheezing Albuterol Sulf (Albuterol Sulfate), 1 DOSE NEB Q4 PRN for Wheezing Loratadine (Claritin), 10 MG PO DAILY PRN for Allergy Symptoms Midodrine (Midodrine HCl), 1 TAB PO UD PRN for Migraine Review of Systems Constitutional: + weakness (in right arm.), No chills, No fatigue, No fever, No sweats, No weight loss Eyes: No diplopia, No discharge, No eye pain, No problem reported, No redness, No worsening of vision ENT: No dental problems, No hearing loss, No nasal symptoms, No problem reported, No sore throat, No tinnitus, No trouble swallowing, No unusual epistaxis Respiratory: No cough, No dyspnea at rest, No dyspnea on exertion, No hemoptysis, No problem reported, No shortness of breath, No sputum, No wheezing Cardiovascular: + chest pain (precordial), No PND, No claudication, No edema, No orthopnea, No palpitations Abdomen: + nausea, + vomiting, No GI bleeding, No constipation, No diarrhea, No pain Musculoskeletal: + problem reported (bilateral flank pain beginning 2 days ago. ), No calf pain, No joint pain, No muscle pain, No swelling Genitourinary - Female: No dysmenorrhea, No dysuria, No hematuria, No menorrhagia, No metrorrhagia, No , No problem reported, No rash, No urinary frequency, No urinary incontinence, No urinary retention, No urinary urgency, No vaginal bleeding, No vaginal discharge, No vaginal itching, No vulvodynia Neurologic: No balance problems, No memory loss, No numbness/tingling, No paralysis, No problem reported, No vertigo, No weakness Psychiatric: + anxiety, + depression symptoms, No anhedonism, No insomnia, No substance abuse Endocrine: No excessive thirst, No excessive urination, No fatigue, No problem reported Hematologic / Lymphatic: No abnormal bleeding/bruising, No clotting problems, No night sweats, No problem reported, No swollen lymph nodes Integumentary: No bleeding, No color change, No itch, No new/changing skin lesions, No problem reported, No rash Allergic / Immunologic: No environmental allergies, No food allergies, No frequent infections, No hives, No pet sensitivities, No poor healing, No problem reported, No prolonged convalescence, No seasonal allergies Physical Exam Vital Signs Date Time Temp Pulse Resp B/P Pulse Ox O2 Delivery O2 Flow Rate FiO2 08/30/16 06:01 86 14 08/30/16 06:00 151/102 97 Nasal Cannula 2.0 08/30/16 05:58 143/91 08/30/16 05:57 144/101 08/30/16 05:56 85 19 08/30/16 05:53 97 Nasal Cannula 2.0 08/30/16 05:51 84 19 08/30/16 05:46 81 17 08/30/16 05:41 86 15 08/30/16 05:36 83 24 08/30/16 05:33 79 08/30/16 05:31 81 20 08/30/16 05:26 92 17 08/30/16 05:21 77 18 08/30/16 05:20 153/113 08/30/16 05:19 78 20 153/113 97 Room Air 08/30/16 05:18 78 20 156/124 98 Room Air 08/30/16 05:17 156/124 08/30/16 05:16 81 19 08/30/16 05:11 77 20 08/30/16 05:06 78 16 08/30/16 05:01 79 19 08/30/16 04:56 80 22 08/30/16 04:54 78 20 117/74 98 Room Air 08/30/16 04:53 117/74 08/30/16 04:51 87 17 08/30/16 04:46 78 22 08/30/16 04:41 74 23 08/30/16 04:36 79 20 08/30/16 04:31 77 17 08/30/16 04:26 76 23 08/30/16 04:21 78 26 08/30/16 04:16 82 21 08/30/16 04:11 85 18 100 08/30/16 04:07 85 08/30/16 04:06 85 20 99 08/30/16 04:05 97 Nasal Cannula 2.0 08/30/16 04:03 163/110 08/30/16 04:02 Room Air 08/30/16 04:02 36.3 85 22 163/110 98 Room Air General Appearance: WD/WN, no apparent distress Head: normocephalic, atraumatic Eyes: normal inspection, PERRL, EOMI, sclerae normal ENT: normal ENT inspection, hearing grossly normal, pharynx normal Neck: supple, no adenopathy, thyroid normal, no JVD, no carotid bruits, trachea midline Respiratory/Chest: chest non-tender, lungs clear, normal breath sounds, no respiratory distress, no accessory muscle use Cardiovascular: regular rate, rhythm, no edema, no gallop, no JVD, no murmur, normal peripheral pulses Abdomen/GI: normal bowel sounds, non tender, soft, no organomegaly, no pulsatile mass Back: normal inspection, no CVA tenderness, no muscle spasm, normal range of motion Extremities/Musculoskelatal: normal inspection, no calf tenderness, normal capillary refill, no pedal edema, normal range of motion, non-tender 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, no motor/sensory deficits, alert, normal mood/affect, normal reflexes, oriented x 3 Skin: normal color, warm/dry, no rash Lymphatic: no adenopathy Diagnostics Laboratory Results Results Past 24 Hours Test 08/30/16 04:40 08/30/16 05:50 08/30/16 06:05 08/30/16 06:15 Range/Units White Blood Count 24.31 4.8-10.8 K/uL Red Blood Count 5.31 4.2-5.4 M/uL Hemoglobin 15.3 12.0-16.0 g/dL Hematocrit 46.5 37-47 % Mean Corpuscular Volume 87.6 80-100 fL Mean Corpuscular Hemoglobin 28.8 25-34 pg Mean Corpuscular Hemoglobin Concent 32.9 32-36 g/dl Platelet Count 378 130-400 K/uL Mean Platelet Volume 9.8 7.4-10.4 fL Neutrophils (%) (Auto) 69.7 % Lymphocytes (%) (Auto) 17.9 % Monocytes (%) (Auto) 10.2 % Eosinophils (%) (Auto) 1.3 % Basophils (%) (Auto) 0.5 % Neutrophils # (Auto) 16.93 1.4-6.5 K/uL Lymphocytes # (Auto) 4.36 1.2-3.4 K/uL Monocytes # (Auto) 2.47 0.11-0.59 K/uL Eosinophils # (Auto) 0.32 0-0.5 K/uL Basophils # (Auto) 0.13 0-0.2 K/uL RDW Standard Deviation 46.4 36.4-46.3 fL RDW Coefficient of Variation 14.4 11.5-14.5 % Immature Granulocyte % (Auto) 0.4 % Immature Granulocyte # (Auto) 0.10 0.00-0.02 K/uL Nucleated RBC Absolute Count (auto) 0.00 0-0 K/uL Nucleated Red Blood Cells % 0.0 % Sodium Level 138 136-145 mmol/L Potassium Level 4.0 3.5-5.1 mmol/L Chloride Level 102 98-107 mmol/L Carbon Dioxide Level 24 21-32 mmol/L Anion Gap 12.0 3-11 mmol/L Blood Urea Nitrogen 19 7-18 mg/dl Creatinine 2.30 0.60-1.20 mg/dl Est Creatinine Clear Calc Drug Dose 30.5 ml/min Estimated GFR () 26.5 Estimated GFR (Non- 22.8 BUN/Creatinine Ratio 8.1 10-20 Random Glucose 158 70-99 mg/dl Calcium Level 9.2 8.5-10.1 mg/dl Total Bilirubin 0.6 0.2-1 mg/dl Aspartate Amino Transf (AST/SGOT) 14 15-37 U/L Alanine Aminotransferase (ALT/SGPT) 18 12-78 U/L Alkaline Phosphatase 130 45-117 U/L Total Creatine Kinase 96 26-192 U/L Creatine Kinase MB 2.1 0.5-3.6 ng/ml Creatine Kinase MB Ratio 2.2 0-3.0 Troponin I < 0.015 0-0.045 ng/ml Total Protein 8.3 6.4-8.2 gm/dl Albumin 4.6 3.4-5.0 gm/dl Globulin 3.7 2.5-4.0 gm/dl Albumin/Globulin Ratio 1.2 0.9-2 Lipase 202 73-393 U/L Bedside Lactic Acid Venous 3.26 0.90-1.70 mmol/L Urine Color DK YELLOW Urine Appearance TURBID CLEAR Urine pH 5.0 4.5-7.5 Urine Specific Campbell 1.028 1.000-1.030 Urine Protein 2+ NEG Urine Glucose (UA) NEG NEG Urine Ketones TRACE NEG Urine Occult Blood NEG NEG Urine Nitrite NEG NEG Urine Bilirubin 1+ NEG Urine Urobilinogen NEG NEG Urine Leukocyte Esterase TRACE NEG Microbiology Results 08/30/16 Blood Culture, Received Pending 08/30/16 Blood Culture, Received Pending 08/30/16 Urine Culture, Received Pending CXR normal EKG EKG shows normal sinus rhythm with ST depression in V2, left axis deviation. Rhythm strip from the ED showed wide-complex tachycardia with main differential including A. fib with aberrancy. Impression Assessment and Plan Precordial chest pain/acute coronary syndrome/wide-complex tachycardia/ hypertension--patient will be admitted to the telemetry unit for serial cardiac enzymes, cardiac rhythm monitoring and a 2-D echocardiogram with Dopplers. She' ll be seen by cardiology in consult. She is allergic to aspirin and NSAIDs, which cause difficulty breathing. We'll therefore start her on Plavix 75 mg by mouth every morning with first dose now. We'll increase metoprolol tartrate from 25 in the morning and 50 in the evening to 50 by mouth twice a day, and place on Nitropaste 1 inch anterior chest wall every 6 hours. Acute renal failure creatinine upon admission was 2.3 with creatinine at last admission on July 25 at 0.66. Patient did have bilateral CVA tenderness over the past few days, suspect that she has a urinary tract infection which is progressed to pyelonephritis. She did have an Escherichia coli UTI at last visit during hospitalization from July 25 through 07/28/2016 that was pansensitive. She also has a history of MRSA. We'll continue the daptomycin IV and Primaxin IV begun in the emergency department. She has a difficult IV access, and will need a PICC line. We'll start normal saline at 100 mils per hour in the interim. She'll need a renal ultrasound once stabilized. Diabetes mellitus--hold pioglitazone, which is known to contribute to acute renal failure. Place on accuchecks before meals and at bedtime with NovoLog coverage per scale. Hypothyroidism--continue levothyroxine sodium at 150 g by mouth daily. Depression/anxiety--continue amitriptyline 50 mg by mouth at bedtime and fluoxetine 40 mg by mouth at bedtime. Chronic pain syndrome--continue OxyContin 20 mg by mouth 4 times daily, and morphine sulfate 2 mg IV every 30 minutes when necessary. GERD--change omeprazole to 40 mg by mouth every morning to pantoprazole 40 mg by mouth every morning. Peripheral neuropathy--continue gabapentin 800 mg by mouth 3 times a day. Asthma/allergy continue Singulair 10 mg every morning. Hold Advair Diskus and Ventolin HFA. Have available Xopenex Atrovent nebulizers to use every 2 hours when necessary. Migraine headache--Fioricet 1 tablet daily when necessary. Level of Care Telemetry Advanced Directives Existing Advance Directive: No Existing Living Will: No Existing Power of Safety Manager: No Resuscitation Status FULL RESUSCITATION VTE Prophylaxis VTE Risk Assessment Done? Y/N: Yes Risk Level: Moderate Given or contraindicated: SCD's
[2016-08-30] MEDS ORDERED: CLOPIDOGREL BISULFATE 75 MG TAB PO STA (06:34)
--- NOTE | 2016-08-30 06:35 | DIAGNOSTIC IMAGING REPORT ---
CHEST ONE VIEW PORTABLE CLINICAL HISTORY: Chest pain. Evaluate mediastinum. COMPARISON STUDY: Chest radiograph November 24, 2015. FINDINGS: Lung volumes are normal. There is no consolidation. No pneumothorax or pleural effusion is present. Mediastinal contours are normal. Borderline cardiomegaly is unchanged. There is no evidence of pulmonary edema. IMPRESSION: No acute cardiopulmonary findings. Electronically signed by: Denis Duggan M.D. 08/30/2016 6:34 AM Dictated Date/Time: 08/30/2016 6:33 AM
[2016-08-30 06:37] LABS: URINE MUCUS PRESENT (NONE PRSENT)
[2016-08-30 06:52] LABS: PROTHROMBIN TIME (PATIENT) 10.6 SECONDS (9.0-12.0)
[2016-08-30] MEDS ORDERED: IPRATROPIUM BROMIDE NEB SOLN 0.02% 2.5 ML VIAL INH PRN (07:00)
[2016-08-30] MEDS ORDERED: LEVALBUTEROL 1.25MG/0.5ML NEB INH PRN (07:00)
[2016-08-30 07:37] VITALS: BP 137/77; PULSE 87; O2SAT 98; Ht 154.9 cm; Wt 107.0 kg
[2016-08-30] MEDS ORDERED: NITROGLYCERIN OINT 2% 1GM PACKET EXT SCH (08:00)
[2016-08-30] MEDS: NITROGLYCERIN 0.4 MG SL PER TAB CHARGE SL PRN ×3 (08:30→08:50)
[2016-08-30] MEDS: MoRPHine SULFATE 2 MG/ML CARP IV PRN ×5 (08:37→21:39)
[2016-08-30] MEDS: PANTOprazole SOD 40 MG TAB PO SCH (08:42)
[2016-08-30] MEDS: TOPIRAMATE 100 MG TAB PO SCH ×3 (08:42→20:38)
[2016-08-30] MEDS: GABAPENTIN 800 MG TAB PO SCH ×3 (08:43→20:30)
[2016-08-30] MEDS: LEVOTHYROXINE 150 MCG TAB PO SCH (08:44)
[2016-08-30] MEDS: CLOPIDOGREL BISULFATE 75 MG TAB PO SCH (08:45)
[2016-08-30] MEDS: METOPROLOL TARTRATE 50 MG TAB PO SCH ×2 (08:46→20:32)
[2016-08-30] MEDS: OXYCODONE HCL IR 5 MG TAB (IMMEDIATE RELEASE) PO SCH ×3 (09:23→20:29)
[2016-08-30] MEDS: SODIUM CHLORIDE 0.9% 1000ML 1,000 ML IV SCH ×2 (09:29→16:01)
[2016-08-30] MEDS: INSULIN ASPART 100 UNITS/ML 3 ML PEN SC SCH ×4 (09:30→20:39)
--- NOTE | 2016-08-30 11:01 | Cardiology Consultation ---
Cardiology Consultation Date of Consultation: August 30, 2016. Requesting Physician: Dr. Duffy Attending Physician: Dr. Santiago Reason for Consultation: Unstable angina Pt evaluation today including: conversation w/ patient, physical exam, chart review, lab review, review of studies, review of inpatient medication list, conversation w/ attending History of Present Illness Ms. Cummings is a 55-year-old female with a past medical history significant for type 2 diabetes mellitus, hypertension, dyslipidemia (intolerant to statins), hypothyroidism, GERD, chronic pain syndrome, neuropathy, and asthma who presented to the Emergency Department yesterday with complaints of chest pain and right arm weakness. She report that last night around 6 pm, she ate pizza, which was unusual for her. She later became nauseous and vomited a few times. She then brought her friend into the ED and while sitting there, she developed sudden onset of chest pain described as a "fire ball" in her chest. The discomfort was located in the region of her lower sternum, and she also noted a dull discomfort of in her jaw bilaterally. She has had similar chest discomfort , but never that severe. She took a TUMS in the ED with little relief. She then drove home to get water and baking soda, which has helped with reflux symptoms in the past. When getting out of her car, her arm became weak and she noted numbness and tingling of her arm. Due to her arm symptoms, she became worried and decided to go back to the ED for further evaluation. She reports that she was given sublingual nitro, and her discomfort and arm symptoms were immediately relieved. She was without symptoms until around 7 am this morning when the chest discomfort and dull jaw pain returned. She currently notes the discomfort now, and she also feels nauseous. She denies shortness of breath, diaphoresis, lightheadedness, palpitations, or presyncope. She denies orthopnea , PND, edema. She denies abnormal bleeding such as melena, hematochezia, or hematuria. Past Medical/Surgical History Appendectomy, hernia repair, hysterectomy, cholecystectomy, carpal tunnel surgery, panniculectomy, shoulder surgery, sinus surgery, splenectomy Family History Asthma Diabetes mellitus FHx: cancer FHx: heart failure Gallbladder disease Heart disease Hypertension Kidney stones Her mother had a LA and subsequent CABG at age 65. Her father had a LA and subsequent CABG in his late 60's. One brother had an LA in his 50's but she is unsure of the full details. One brother had intracoronary stents placed in his late 50's or early 60's. Social History Smoking Status: Never Smoker History of Alcohol Use: No She is . She has 3 children. She works at [employer]. She quit smoking in 1991. She previously smoked for 22 years at up to 3 packs per day. She denies alcohol or drug use. Allergies Coded Allergies: Aspirin (Verified Allergy, Severe, SHORT OF BREATH, 08/25/16) Cephalexin (Verified Allergy, Severe, EDEMA OF FACE,LIPS,TONGUE, 08/30/16) Ketorolac Tromethamine (Verified Allergy, Severe, SHORTNESS OF BREATH, ) Latex2 -Systemic Allergic Response (Verified Allergy, Severe, DIFFICULTY BREATHING, 08/25/16) NSAIDs (Verified Allergy, Severe, SHORT OF BREATH, 08/25/16) Sulfa Antibiotics (Verified Allergy, Unknown, UNKNOWN- HAD RXN WHEN LITTLE , 08/25/16) Simvastatin (Verified Adverse Reaction, Intermediate, myalgias, 08/25/16) Metformin (Verified Adverse Reaction, Mild, GI SYMPTOMS, 08/25/16) Medications Current Inpatient Medications Medications (Trade) Dose Ordered Sig/Sid Route Start Time Stop Time Status Last Admin Dose Admin Sodium Chloride (Nss 1000ml) 1,000 ml @ 100 mls/hr Q10H IV 08/30/16 06:02 09/29/16 06:01 Acetaminophen (Tylenol Tab) 650 mg Q4H PRN PO 08/30/16 06:15 09/29/16 06:14 Zolpidem Tartrate (Ambien Tab) 5 mg HSZ PRN PO 08/30/16 06:15 09/29/16 06:14 Nitroglycerin (Nitrostat Tab) 0.4 mg UD PRN SL 08/30/16 06:15 09/29/16 06:14 08/30/16 08:30 0.4 MG Morphine Sulfate (MoRPHine SULFATE INJ) 2 mg Q30M PRN IV 08/30/16 06:15 09/13/16 06:14 08/30/16 08:37 2 MG Ondansetron HCl (Zofran Inj) 4 mg Q6H PRN IV 08/30/16 06:15 6/4/17 06:14 Insulin Aspart (novoLOG ASPART) SLIDING SCALE If C... ACHS SC 08/30/16 07:00 09/29/16 06:59 Glucose (Glucose 40% Gel) UD PRN PO 08/30/16 06:15 09/29/16 06:14 Glucose (Glucose Chew Tab) 1 tabs UD PRN PO 08/30/16 06:15 09/29/16 06:14 Dextrose (Dextrose 50% 50ML Syringe) 50 ml UD PRN IV 08/30/16 06:15 09/29/16 06:14 Glucagon (Glucagon Inj) 1 mg UD PRN SQ 08/30/16 06:15 09/29/16 06:14 Acetaminophen/ Butalbital/ Caffeine (Fioricet Tab) 1 tab DAILY PRN PO 08/30/16 06:15 09/29/16 06:14 Fluoxetine HCl (Prozac Cap) 40 mg HS PO 08/30/16 21:00 09/29/16 20:59 Gabapentin (Neurontin Tab) 800 mg TID PO 08/30/16 09:00 09/29/16 08:59 Levothyroxine Sodium (Synthroid Tab) 150 mcg DAILYBB PO 08/30/16 08:00 09/29/16 07:59 Loratadine (Claritin Tab) 10 mg DAILY PRN PO 08/30/16 06:15 09/29/16 06:14 Metoprolol Tartrate (Lopressor Tab) 50 mg BID PO 08/30/16 09:00 09/29/16 08:59 Montelukast Sodium (Singulair Tab) 10 mg QPM PO 08/30/16 21:00 09/29/16 20:59 Oxycodone HCl (Roxicodone Immediate Rel Tab) 20 mg Q6H PO 08/30/16 08:00 09/13/16 07:59 Topiramate (Topamax Tab) 100 mg BID PO 08/30/16 09:00 09/29/16 08:59 Pantoprazole Sodium (Protonix Tab) 40 mg QAM PO 08/30/16 09:00 09/29/16 08:59 Clopidogrel Bisulfate (plAVix TAB) 75 mg QAM PO 08/30/16 09:00 09/29/16 08:59 Ipratropium [place] (Atrovent 0.02% 0.5MG/2.5ML Neb) 0.5 mg Q2R PRN INH 08/30/16 07:00 09/29/16 06:59 Levalbuterol 1.25 mg 1.25 mg Q2R PRN INH 08/30/16 07:00 09/29/16 06:59 Daptomycin 600 mg/ Sodium Chloride 62 ml @ 100 mls/hr DAILY@0600 IV 08/31/16 06:00 09/09/16 05:59 Imipenem/ Cilastatin Sodium/ Dextrose (Primaxin Iv/D5 100ml) 110 ml @ 100 mls/hr Q8H IV 08/30/16 14:00 09/09/16 05:59 Nitroglycerin (Nitroglycerin 2% Oint) 1 inch Q6 EXT 08/30/16 12:00 09/29/16 11:59 Heparin Sodium (Porcine) (Heparin 10 Unit/ ml 5 ml Flush) 5 ml PRN PRN FLUSH 08/30/16 09:00 09/29/16 08:59 Physical Exam Vital Signs Past 12 Hours Date Time Temp Pulse Resp B/P Pulse Ox O2 Delivery O2 Flow Rate FiO2 08/30/16 07:37 87 18 137/77 98 Room Air 08/30/16 07:05 36.3 86 14 134/91 97 08/30/16 06:01 86 14 08/30/16 06:00 151/102 97 Nasal Cannula 2.0 08/30/16 05:58 143/91 08/30/16 05:57 144/101 08/30/16 05:56 85 19 08/30/16 05:53 97 Nasal Cannula 2.0 08/30/16 05:51 84 19 08/30/16 05:46 81 17 08/30/16 05:41 86 15 08/30/16 05:36 83 24 08/30/16 05:33 79 08/30/16 05:31 81 20 08/30/16 05:26 92 17 08/30/16 05:21 77 18 08/30/16 05:20 153/113 08/30/16 05:19 78 20 153/113 97 Room Air 08/30/16 05:18 78 20 156/124 98 Room Air 5/5/17 05:17 156/124 08/30/16 05:16 81 19 08/30/16 05:11 77 20 08/30/16 05:06 78 16 08/30/16 05:01 79 19 08/30/16 04:56 80 22 08/30/16 04:54 78 20 117/74 98 Room Air 08/30/16 04:53 117/74 08/30/16 04:51 87 17 08/30/16 04:46 78 22 08/30/16 04:41 74 23 08/30/16 04:36 79 20 08/30/16 04:31 77 17 08/30/16 04:26 76 23 08/30/16 04:21 78 26 08/30/16 04:16 82 21 08/30/16 04:11 85 18 100 08/30/16 04:07 85 08/30/16 04:06 85 20 99 08/30/16 04:05 97 Nasal Cannula 2.0 08/30/16 04:03 163/110 08/30/16 04:02 Room Air 08/30/16 04:02 36.3 85 22 163/110 98 Room Air Constitutional: Alert, oriented, in no acute distress HEENT: Head is atraumatic and normocephalic. EOMs intact. Sclera anicteric. Face is symmetric. No perioral cyanosis. Mucous membranes moist. Neck: Supple, no JVD, no carotid bruits Chest: Nontender upon palpation Pulmonary: Normal respiratory effort, clear to auscultation bilaterally Cardiac: Regular rate and rhythm, normal S1 and S2, no gallops, no rubs, no murmurs Extremities: No clubbing, cyanosis, or edema. Pulses 2+ and symmetric Abdomen: Normal bowel sounds, soft, non-tender, no abdominal mass palpated Skin: Normal skin color, turgor, and pigmentation, no rash, no skin lesions Neurological: Oriented to person, place, and time Data Laboratory Results: Last 24 Hours Test 08/30/16 00:00 08/30/16 04:40 08/30/16 05:50 08/30/16 06:05 White Blood Count 24.31 K/uL Red Blood Count 5.31 M/uL Hemoglobin 15.3 g/dL Hematocrit 46.5 % Mean Corpuscular Volume 87.6 fL Mean Corpuscular Hemoglobin 28.8 pg Mean Corpuscular Hemoglobin Concent 32.9 g/dl Platelet Count 378 K/uL Mean Platelet Volume 9.8 fL Neutrophils (%) (Auto) 69.7 % Lymphocytes (%) (Auto) 17.9 % Monocytes (%) (Auto) 10.2 % Eosinophils (%) (Auto) 1.3 % Basophils (%) (Auto) 0.5 % Neutrophils # (Auto) 16.93 K/uL Lymphocytes # (Auto) 4.36 K/uL Monocytes # (Auto) 2.47 K/uL Eosinophils # (Auto) 0.32 K/uL Basophils # (Auto) 0.13 K/uL RDW Standard Deviation 46.4 fL RDW Coefficient of Variation 14.4 % Immature Granulocyte % (Auto) 0.4 % Immature Granulocyte # (Auto) 0.10 K/uL Nucleated RBC Absolute Count (auto) 0.00 K/uL Nucleated Red Blood Cells % 0.0 % Sodium Level 138 mmol/L Potassium Level 4.0 mmol/L Chloride Level 102 mmol/L Carbon Dioxide Level 24 mmol/L Anion Gap 12.0 mmol/L Blood Urea Nitrogen 19 mg/dl Creatinine 2.30 mg/dl Est Creatinine Clear Calc Drug Dose 30.5 ml/min Estimated GFR () 26.5 Estimated GFR (Non- 22.8 BUN/Creatinine Ratio 8.1 Random Glucose 158 mg/dl Calcium Level 9.2 mg/dl Total Bilirubin 0.6 mg/dl Aspartate Amino Transf (AST/SGOT) 14 U/L Alanine Aminotransferase (ALT/SGPT) 18 U/L Alkaline Phosphatase 130 U/L Total Creatine Kinase 96 U/L Creatine Kinase MB 2.1 ng/ml Creatine Kinase MB Ratio 2.2 Troponin I < 0.015 ng/ml Total Protein 8.3 gm/dl Albumin 4.6 gm/dl Globulin 3.7 gm/dl Albumin/Globulin Ratio 1.2 Lipase 202 U/L Bedside Lactic Acid Venous 3.26 mmol/L Urine Color DK YELLOW Urine Appearance TURBID Urine pH 5.0 Urine Specific [place] 1.028 Urine Protein 2+ Urine Glucose (UA) NEG Urine Ketones TRACE Urine Occult Blood NEG Urine Nitrite NEG Urine Bilirubin 1+ Urine Urobilinogen NEG Urine Leukocyte Esterase TRACE Urine WBC (Auto) 10-30 /hpf Urine RBC (Auto) 0-4 /hpf Urine Hyaline Casts (Auto) 5-10 /lpf Urine Epithelial Cells (Auto) >30 /lpf Urine Bacteria (Auto) 1+ Urine Renal Epithelial Cells /lpf Urine Crystals CALCIUM OXALATE Urine Pathogenic Casts /lpf Urine Mucus PRESENT Urine Yeast (Auto) Test 08/30/16 06:15 Prothrombin Time 10.6 SECONDS Prothromb Time International Ratio 1.0 Activated Partial Thromboplast Time 26.8 SECONDS Partial Thromboplastin Ratio 1.0 CXR: No acute cardiopulmonary findings. EKG: Normal sinus rhythm. Possible left atrial enlargement. Left axis deviation. Poor R wave progression which could be secondary to anterior LA vs lead placement vs LVH. Telemetry reviewed: Sinus rhythm in the 70's. Assessment & Plan Patient is a 55-year-old female with no known cardiac history, but with cardiac risk factors including diabetes, hypertension, dyslipidemia, and a family history of premature CAD. She presented to the ED yesterday with complaints of chest pain and right arm weakness/numbness/tingling. She also noted dull pain in her jaw bilaterally and experienced nausea and vomiting prior to arrival. Her symptoms were immediately relieved with nitro, but the chest and jaw pain have since returned. Her ECG's have shown no acute ST or T wave changes. Her first set of cardiac enzymes was negative. She has been ordered an echocardiogram, but it has yet to be performed. She was found to be in acute renal failure with a rise of her creatinine to 2.3, and her WBC is also elevated at 24.31. In the absence of ECG changes or enzyme elevation, there is no indication for urgent cardiac catheterization at this time. There is also no indication for anticoagulation therapy. Recommend continuing to trend her cardiac enzymes. If her enzymes remain negative, a stress test can be performed, potentially as an outpatient. Would also recommend continued treatment/evaluation for gastroenterological causes of her symptoms as there does appear to be a component of reflux. Thank you for allowing us to see this patient in consultation. Will continue to follow along throughout the patient's hospitalization and provide further recommendations depending on her clinical course. The patient was seen and discussed with Dr. Santiago, and the plan was made in collaboration with him.
[2016-08-30 11:55] VITALS: BP 123/75; PULSE 75; TEMP 36.6; O2SAT 92
[2016-08-30] MEDS: NITROGLYCERIN 2% OINTMENT 30GM TUBE EXT SCH ×3 (12:26→23:28)
[2016-08-30] MEDS ORDERED: HEPARIN IV BOLUS 6,000 UNIT in SYRINGE 0 ML IV ONE (13:15)
[2016-08-30] MEDS: HEPARIN 25,000 UNIT/500ML D5W 500 ML IV PRN (13:35)
[2016-08-30] MEDS: ACETAMINOPHEN 325 MG TAB PO PRN ×2 (13:46→17:44)
--- NOTE | 2016-08-30 13:47 | Medical Consult ---
Consultation Date of Consultation: August 30, 2016. Attending Physician: Lilia Patten M.D. Reason for Consultation: Ordered daptomycin and imipenem History of Present Illness 55-year-old female with history of diabetes mellitus, hypertension, and hyperlipidemia, who was in usual state of health until yesterday when she noted onset of burning type substernal chest pain, radiating to her arm and her jaw, associated with nausea and vomiting. Symptoms persisted and worsened, and she was brought to the hospital. Pain appeared to respond to administration of nitroglycerin. She was found to have significant leukocytosis, and was started empirically on IV daptomycin and imipenem. So far cultures have been negative. Initial cardiac enzymes were negative, but now 2nd troponin has come back markedly elevated. Patient has been started on IV heparin. Some worry about urinary tract infection but patient denies any major symptoms. Chest x-ray shows no evidence of pneumonia. Of note, patient has a history of recurrent skin infections with MRSA, and recently was treated with doxycycline for a recurrent skin abscess on her right leg. She denies any recent fevers or chills. Past Medical/Surgical History Medical Problems: (1) Abdominal wall abscess Status: Acute (2) Acute exacerbation of chronic low back pain Status: Acute (3) Anxiety State Nos Status: Chronic (4) Asthma Status: Chronic (5) Degenerative arthritis of knee Status: Chronic (6) Depressive Disorder Nec Status: Chronic (7) Diab Niyah Wo Compl, Type Ii Or Unspec Type, Not Uncntrld Status: Chronic (8) Epigastric abdominal pain Status: Acute (9) Esophageal Reflux Status: Chronic (10) Headache Status: Acute (11) Hx-Venous Thrombosis&Embolism Status: Chronic (12) Hyperlipidemia Nec/Nos Status: Chronic (13) Hypertension Status: Chronic (14) Hypertension Status: Acute (15) Hypothyroidism Nos Status: Chronic (16) Lumbar Disc Displacement Status: Chronic (17) Lumbar radiculopathy Status: Acute (18) Lumbosacral Neuritis Nos Status: Chronic (19) Morbid Obesity Status: Chronic (20) Osteoporosis Nos Status: Chronic (21) Pneumonia Status: Acute (22) Splenosis Status: Chronic (23) Substernal chest pain Status: Acute (24) Urinary tract infection Status: Acute (25) UTI (urinary tract infection) Status: Acute (26) Wide-complex tachycardia Status: Acute Medical Problems: (1) Abdominal pain (2) ACS (acute coronary syndrome) (3) Acute renal failure (4) ELIO (acute kidney injury) (5) Anxiety State Nos (6) Asthma (7) Back pain (8) Back pain (9) CHI (closed head injury) (10) Contusion of multiple sites (11) Contusion of multiple sites (12) Contusion of third finger, right (13) Degenerative arthritis of knee (14) Dehydration (15) Depressive Disorder Nec (16) Diab Niyah Wo Compl, Type Ii Or Unspec Type, Not Uncntrld (17) Esophageal Reflux (18) Fall (19) Fall due to slipping on ice or snow (20) Foot pain (21) Hx-Venous Thrombosis&Embolism (22) Hyperlipidemia Nec/Nos (23) Hypertension (24) Hypotension (25) Hypotension (26) Hypothyroidism Nos (27) Knee contusion (28) Left wrist pain (29) Leukocytosis (30) Lumbar Disc Displacement (31) Lumbar strain (32) Lumbosacral Neuritis Nos (33) Morbid Obesity (34) Nausea and vomiting (35) Nausea, vomiting, and diarrhea (36) Osteoporosis Nos (37) Post concussion syndrome (38) Right flank pain (39) SIRS (systemic inflammatory response syndrome) (40) Splenosis (41) UTI (urinary tract infection) Surgical Problems: (1) Hx of appendectomy (2) Hx of hernia repair Family History Asthma Diabetes mellitus FHx: cancer FHx: heart failure Gallbladder disease Heart disease Hypertension Kidney stones Social History Smoking Status: Never Smoker Smokeless Tobacco Use: No Alcohol Use: none Drug Use: none Marital Status: single Housing Status: lives with family Occupation Status: employed Allergies Coded Allergies: Aspirin (Verified Allergy, Severe, SHORT OF BREATH, 08/25/16) Cephalexin (Verified Allergy, Severe, EDEMA OF FACE,LIPS,TONGUE, 08/30/16) Ketorolac Tromethamine (Verified Allergy, Severe, SHORTNESS OF BREATH, ) Latex2 -Systemic Allergic Response (Verified Allergy, Severe, DIFFICULTY BREATHING, 08/25/16) NSAIDs (Verified Allergy, Severe, SHORT OF BREATH, 08/25/16) Sulfa Antibiotics (Verified Allergy, Unknown, UNKNOWN- HAD RXN WHEN LITTLE , 08/25/16) Simvastatin (Verified Adverse Reaction, Intermediate, myalgias, 08/25/16) Metformin (Verified Adverse Reaction, Mild, GI SYMPTOMS, 08/25/16) Current Inpatient Medications Current Inpatient Medications Medications (Trade) Dose Ordered Sig/Sid Route Start Time Stop Time Status Last Admin Dose Admin Sodium Chloride (Nss 1000ml) 1,000 ml @ 100 mls/hr Q10H IV 08/30/16 06:02 09/29/16 06:01 08/30/16 09:29 100 MLS/HR Acetaminophen (Tylenol Tab) 650 mg Q4H PRN PO 08/30/16 06:15 09/29/16 06:14 Zolpidem Tartrate (Ambien Tab) 5 mg HSZ PRN PO 08/30/16 06:15 09/29/16 06:14 Nitroglycerin (Nitrostat Tab) 0.4 mg UD PRN SL 08/30/16 06:15 09/29/16 06:14 08/30/16 08:50 0.4 MG Morphine Sulfate (MoRPHine SULFATE INJ) 2 mg Q30M PRN IV 08/30/16 06:15 09/13/16 06:14 08/30/16 10:55 2 MG Ondansetron HCl (Zofran Inj) 4 mg Q6H PRN IV 08/30/16 06:15 09/29/16 06:14 Insulin Aspart (novoLOG ASPART) SLIDING SCALE If C... ACHS SC 08/30/16 07:00 09/29/16 06:59 08/30/16 12:21 6 UNITS Glucose (Glucose 40% Gel) UD PRN PO 08/30/16 06:15 09/29/16 06:14 Glucose (Glucose Chew Tab) 1 tabs UD PRN PO 08/30/16 06:15 09/29/16 06:14 Dextrose (Dextrose 50% 50ML Syringe) 50 ml UD PRN IV 08/30/16 06:15 09/29/16 06:14 Glucagon (Glucagon Inj) 1 mg UD PRN SQ 08/30/16 06:15 09/29/16 06:14 Acetaminophen/ Butalbital/ Caffeine (Fioricet Tab) 1 tab DAILY PRN PO 08/30/16 06:15 09/29/16 06:14 Fluoxetine HCl (Prozac Cap) 40 mg HS PO 08/30/16 21:00 09/29/16 20:59 Gabapentin (Neurontin Tab) 800 mg TID PO 08/30/16 09:00 09/29/16 08:59 08/30/16 08:43 800 MG Levothyroxine Sodium (Synthroid Tab) 150 mcg DAILYBB PO 08/30/16 08:00 09/29/16 07:59 08/30/16 08:44 150 MCG Loratadine (Claritin Tab) 10 mg DAILY PRN PO 08/30/16 06:15 09/29/16 06:14 Metoprolol Tartrate (Lopressor Tab) 50 mg BID PO 08/30/16 09:00 09/29/16 08:59 08/30/16 08:46 50 MG Montelukast Sodium (Singulair Tab) 10 mg QPM PO 08/30/16 21:00 09/29/16 20:59 Oxycodone HCl (Roxicodone Immediate Rel Tab) 20 mg Q6H PO 08/30/16 08:00 09/13/16 07:59 08/30/16 09:23 20 MG Topiramate (Topamax Tab) 100 mg BID PO 08/30/16 09:00 09/29/16 08:59 08/30/16 08:42 100 MG Pantoprazole Sodium (Protonix Tab) 40 mg QAM PO 08/30/16 09:00 09/29/16 08:59 08/30/16 08:42 40 MG Clopidogrel Bisulfate (plAVix TAB) 75 mg QAM PO 08/30/16 09:00 09/29/16 08:59 Ipratropium [place] (Atrovent 0.02% 0.5MG/2.5ML Neb) 0.5 mg Q2R PRN INH 08/30/16 07:00 09/29/16 06:59 Levalbuterol 1.25 mg 1.25 mg Q2R PRN INH 08/30/16 07:00 09/29/16 06:59 Daptomycin 600 mg/ Sodium Chloride 62 ml @ 100 mls/hr DAILY@0600 IV 08/31/16 06:00 09/09/16 05:59 Imipenem/ Cilastatin Sodium/ Dextrose (Primaxin Iv/D5 100ml) 110 ml @ 100 mls/hr Q8H IV 08/30/16 14:00 09/09/16 05:59 Nitroglycerin (Nitroglycerin 2% Oint) 1 inch Q6 EXT 08/30/16 12:00 09/29/16 11:59 08/30/16 12:26 1 INCH Heparin Sodium (Porcine) (Heparin 10 Unit/ ml 5 ml Flush) 5 ml PRN PRN FLUSH 08/30/16 09:00 09/29/16 08:59 Simvastatin 80 mg 80 mg PM PO 08/30/16 21:00 09/29/16 20:59 Heparin Sodium/ Dextrose (Heparin 25,000 Unit/500ml D5W) 500 ml @ 26 mls/hr [id number] PRN IV 08/30/16 13:15 09/29/16 13:14 Review of Systems Constitutional: No chills, No fever Eyes: No problem reported ENT: No problem reported Respiratory: No problem reported Cardiovascular: + chest pain Abdomen: + nausea, + vomiting Musculoskeletal: No problem reported Genitourinary - Female: No problem reported Neurologic: No problem reported Psychiatric: No problem reported Endocrine: No problem reported Hematologic / Lymphatic: No problem reported Integumentary: + new/changing skin lesions Allergic / Immunologic: No problem reported Physical Exam Date Time Temp Pulse Resp B/P Pulse Ox O2 Delivery O2 Flow Rate FiO2 08/30/16 11:55 36.6 75 18 123/75 92 Room Air 08/30/16 07:37 87 18 137/77 98 Room Air 08/30/16 07:05 36.3 86 14 134/91 97 08/30/16 06:01 86 14 08/30/16 06:00 151/102 97 Nasal Cannula 2.0 08/30/16 05:58 143/91 08/30/16 05:57 144/101 08/30/16 05:56 85 19 08/30/16 05:53 97 Nasal Cannula 2.0 08/30/16 05:51 84 19 08/30/16 05:46 81 17 08/30/16 05:41 86 15 08/30/16 05:36 83 24 08/30/16 05:33 79 08/30/16 05:31 81 20 08/30/16 05:26 92 17 08/30/16 05:21 77 18 08/30/16 05:20 153/113 08/30/16 05:19 78 20 153/113 97 Room Air 08/30/16 05:18 78 20 156/124 98 Room Air 08/30/16 05:17 156/124 08/30/16 05:16 81 19 08/30/16 05:11 77 20 08/30/16 05:06 78 16 08/30/16 05:01 79 19 08/30/16 04:56 80 22 08/30/16 04:54 78 20 117/74 98 Room Air 08/30/16 04:53 117/74 08/30/16 04:51 87 17 08/30/16 04:46 78 22 08/30/16 04:41 74 23 08/30/16 04:36 79 20 08/30/16 04:31 77 17 08/30/16 04:26 76 23 08/30/16 04:21 78 26 08/30/16 04:16 82 21 08/30/16 04:11 85 18 100 08/30/16 04:07 85 08/30/16 04:06 85 20 99 08/30/16 04:05 97 Nasal Cannula 2.0 08/30/16 04:03 163/110 08/30/16 04:02 Room Air 08/30/16 04:02 36.3 85 22 163/110 98 Room Air General Appearance: WD/WN, no apparent distress, + obese Head: normocephalic, atraumatic Eyes: normal inspection, EOMI, sclerae normal ENT: normal ENT inspection, hearing grossly normal, pharynx normal Neck: supple, no adenopathy, thyroid normal, trachea midline Respiratory/Chest: chest non-tender, lungs clear, normal breath sounds, no respiratory distress Cardiovascular: regular rate, rhythm, no gallop, no murmur Abdomen/GI: normal bowel sounds, non tender, soft, no organomegaly Back: normal inspection, no CVA tenderness Extremities/Musculoskelatal: normal inspection, no calf tenderness, normal capillary refill Neurologic/Psych: alert, oriented x 3 Skin: normal color, no rash, + pertinent finding (healing skin abscess right lower leg) Lymphatic: no adenopathy Laboratory Results Date/Time Source Procedure Growth Status 08/30/16 06:15 Blood Blood Culture Pending Received 08/30/16 05:50 Blood Blood Culture Pending Received 08/30/16 06:05 Urine,Catheterized Urine Culture Pending Received Last 24 Hours Test 08/30/16 00:00 08/30/16 04:40 08/30/16 05:50 08/30/16 06:05 Lactic Acid Level 1.2 mmol/L White Blood Count 24.31 K/uL Red Blood Count 5.31 M/uL Hemoglobin 15.3 g/dL Hematocrit 46.5 % Mean Corpuscular Volume 87.6 fL Mean Corpuscular Hemoglobin 28.8 pg Mean Corpuscular Hemoglobin Concent 32.9 g/dl Platelet Count 378 K/uL Mean Platelet Volume 9.8 fL Neutrophils (%) (Auto) 69.7 % Lymphocytes (%) (Auto) 17.9 % Monocytes (%) (Auto) 10.2 % Eosinophils (%) (Auto) 1.3 % Basophils (%) (Auto) 0.5 % Neutrophils # (Auto) 16.93 K/uL Lymphocytes # (Auto) 4.36 K/uL Monocytes # (Auto) 2.47 K/uL Eosinophils # (Auto) 0.32 K/uL Basophils # (Auto) 0.13 K/uL RDW Standard Deviation 46.4 fL RDW Coefficient of Variation 14.4 % Immature Granulocyte % (Auto) 0.4 % Immature Granulocyte # (Auto) 0.10 K/uL Nucleated RBC Absolute Count (auto) 0.00 K/uL Nucleated Red Blood Cells % 0.0 % Sodium Level 138 mmol/L Potassium Level 4.0 mmol/L Chloride Level 102 mmol/L Carbon Dioxide Level 24 mmol/L Anion Gap 12.0 mmol/L Blood Urea Nitrogen 19 mg/dl Creatinine 2.30 mg/dl Est Creatinine Clear Calc Drug Dose 30.5 ml/min Estimated GFR () 26.5 Estimated GFR (Non- 22.8 BUN/Creatinine Ratio 8.1 Random Glucose 158 mg/dl Calcium Level 9.2 mg/dl Total Bilirubin 0.6 mg/dl Aspartate Amino Transf (AST/SGOT) 14 U/L Alanine Aminotransferase (ALT/SGPT) 18 U/L Alkaline Phosphatase 130 U/L Total Creatine Kinase 96 U/L Creatine Kinase MB 2.1 ng/ml Creatine Kinase MB Ratio 2.2 Troponin I < 0.015 ng/ml Total Protein 8.3 gm/dl Albumin 4.6 gm/dl Globulin 3.7 gm/dl Albumin/Globulin Ratio 1.2 Lipase 202 U/L Bedside Lactic Acid Venous 3.26 mmol/L Urine Color DK YELLOW Urine Appearance TURBID Urine pH 5.0 Urine Specific [place] 1.028 Urine Protein 2+ Urine Glucose (UA) NEG Urine Ketones TRACE Urine Occult Blood NEG Urine Nitrite NEG Urine Bilirubin 1+ Urine Urobilinogen NEG Urine Leukocyte Esterase TRACE Urine WBC (Auto) 10-30 /hpf Urine RBC (Auto) 0-4 /hpf Urine Hyaline Casts (Auto) 5-10 /lpf Urine Epithelial Cells (Auto) >30 /lpf Urine Bacteria (Auto) 1+ Urine Renal Epithelial Cells /lpf Urine Crystals CALCIUM OXALATE Urine Pathogenic Casts /lpf Urine Mucus PRESENT Urine Yeast (Auto) Test 08/30/16 06:15 08/30/16 09:33 08/30/16 10:53 08/30/16 11:02 Prothrombin Time 10.6 SECONDS Prothromb Time International Ratio 1.0 Activated Partial Thromboplast Time 26.8 SECONDS Partial Thromboplastin Ratio 1.0 Bedside Glucose 137 mg/dl 132 mg/dl Troponin I 25.800 ng/ml Test 08/30/16 13:01 Patient Name: GEOVANY CARBAJAL Unit Number: [id number] Dictated: 08/30/16632 Transcribed: 08/30/16632 LEWIS Printed Date/Time: [~ rep prt dt]/[~ rep prt tm] [~ rep ct labl] - [~ rep ct ivnm] [facility] [place] [address] Dictated: 08/30/16632 Transcribed: 08/30/16632 LEWIS Printed Date/Time: [~ rep prt dt]/[~ rep prt tm] [~ rep ct labl] - [~ rep ct ivnm] [~ rep ct add3]] CHEST ONE VIEW PORTABLE CLINICAL HISTORY: Chest pain. Evaluate mediastinum. COMPARISON STUDY: Chest radiograph November 24, 2015. FINDINGS: Lung volumes are normal. There is no consolidation. No pneumothorax or pleural effusion is present. Mediastinal contours are normal. Borderline cardiomegaly is unchanged. There is no evidence of pulmonary edema. IMPRESSION: No acute cardiopulmonary findings. Electronically signed by: Denis Duggan M.D. 08/30/2016 6:34 AM Dictated Date/Time: 08/30/2016 6:33 AM The status of this report is Signed. Draft = Not yet reviewed or approved by Radiologist. Signed = Reviewed and approved by Radiologist. <AttendingPhy></AttendingPhy> <FamilyPhy>Norberto Anderson MD</FamilyPhy> < PrimaryPhy>Norberto Anderson MD</PrimaryPhy> <UnitNumber>[id number]</UnitNumber > <VisitNumber>[id number]</VisitNumber> <PatientName>GEOVANY CARBAJAL</ PatientName> <DateOfBirth>1960</DateOfBirth> <Location>C.EDB</Location> < ServiceDate>08/30/16</ServiceDate> <MNE>ESINDI</MNE> <OrderingPhy>Stephy Tineo D.O.</OrderingPhy> <OrderingPhyMNE>f rep ord dr collins</OrderingPhyMNE> < DictatingPhyMNE>f rep dict dr collins</DictatingPhyMNE> <CCListMNE>f rep ct mne</ CCListMNE> <AdmittingPhyMNE>f pt admit dr collins</AdmittingPhyMNE> <AttendingPhyMNE >f pt attend dr collins</AttendingPhyMNE> <ConsultingPhyMNE>f pt consult dr collins</ConsultingPhyMNE> <FamilyPhyMNE>f pt fam dr collins</FamilyPhyMNE> <OtherPhyMNE>f pt other dr collins</OtherPhyMNE> < PrimaryPhyMNE>f pt prim care dr collins</PrimaryPhyMNE> <ReferringPhyMNE>f pt referring dr collins</ReferringPhyMNE> Assessment & Plan 55 yo diabetic female with what appears to be acute IA with markedly elevated troponin. Leukocytosis likely from above, but may also reflect in part recent MRSA skin infection. Have discontinued imipenem, and will likely transition to oral doxycycline if cultures remain negative. Will discuss with all involved.
[2016-08-30] MEDS ORDERED: IMIPENEM/CILASTATIN IV 500 MG in DEXTROSE 5% 100ML 100 ML IV SCH (14:00)
[2016-08-30 14:50] LABS: CKMB/CK RATIO 11.8 (0-3.0)
--- NOTE | 2016-08-30 15:08 | Family Medicine Progress Note ---
Progress Note Date of Service August 30, 2016. Subjective Pt evaluation today including: conversation w/ patient, physical exam, chart review, lab review Voiding: no voiding problems 55-year-old female with a past medical history of type 2 diabetes, attention, hypertension, hyperlipidemia, hypothyroidism, GERD, chronic pain syndrome, neuropathy and asthma presented to the ED with complaints of persistent chest pain that started after midnight yesterday. She was in the ED with a friend yesterday and had develop chest pain and a burning sensation/heaviness in her right arm. She had about 2 episodes of vomiting and to return to the ER to be evaluated for chest pain. Today she continued to have pain in the middle of her chest which she described as a fireball in her chest. She however denied any shortness of breath, palpitations, dizziness. Constitutional: No chills, No fever Eyes: No worsening of vision ENT: No hearing loss Cardiovascular: + chest pain, No PND, No claudication, No edema, No orthopnea, No palpitations Breast: No breast lump Abdomen: + vomiting, No diarrhea, No nausea, No pain Musculoskeletal: No joint pain Female : No dysuria Neurologic: No memory loss Psychiatric: No depression symptoms Heme: No abnormal bleeding/bruising Medications Current Inpatient Medications Medications (Trade) Dose Ordered Sig/Sid Route Start Time Stop Time Status Last Admin Dose Admin Sodium Chloride (Nss 1000ml) 1,000 ml @ 100 mls/hr Q10H IV 08/30/16 06:02 09/29/16 06:01 08/30/16 09:29 100 MLS/HR Acetaminophen (Tylenol Tab) 650 mg Q4H PRN PO 08/30/16 06:15 09/29/16 06:14 08/30/16 13:46 650 MG Zolpidem Tartrate (Ambien Tab) 5 mg HSZ PRN PO 08/30/16 06:15 09/29/16 06:14 Nitroglycerin (Nitrostat Tab) 0.4 mg UD PRN SL 08/30/16 06:15 09/29/16 06:14 08/30/16 08:50 0.4 MG Morphine Sulfate (MoRPHine SULFATE INJ) 2 mg Q30M PRN IV 08/30/16 06:15 09/13/16 06:14 08/30/16 10:55 2 MG Ondansetron HCl (Zofran Inj) 4 mg Q6H PRN IV 08/30/16 06:15 09/29/16 06:14 Insulin Aspart (novoLOG ASPART) SLIDING SCALE If C... ACHS SC 08/30/16 07:00 09/29/16 06:59 08/30/16 12:21 6 UNITS Glucose (Glucose 40% Gel) UD PRN PO 08/30/16 06:15 09/29/16 06:14 Glucose (Glucose Chew Tab) 1 tabs UD PRN PO 08/30/16 06:15 09/29/16 06:14 Dextrose (Dextrose 50% 50ML Syringe) 50 ml UD PRN IV 08/30/16 06:15 09/29/16 06:14 Glucagon (Glucagon Inj) 1 mg UD PRN SQ 08/30/16 06:15 09/29/16 06:14 Acetaminophen/ Butalbital/ Caffeine (Fioricet Tab) 1 tab DAILY PRN PO 08/30/16 06:15 09/29/16 06:14 Fluoxetine HCl (Prozac Cap) 40 mg HS PO 08/30/16 21:00 09/29/16 20:59 Gabapentin (Neurontin Tab) 800 mg TID PO 08/30/16 09:00 09/29/16 08:59 08/30/16 13:41 800 MG Levothyroxine Sodium (Synthroid Tab) 150 mcg DAILYBB PO 08/30/16 08:00 09/29/16 07:59 08/30/16 08:44 150 MCG Loratadine (Claritin Tab) 10 mg DAILY PRN PO 08/30/16 06:15 09/29/16 06:14 Metoprolol Tartrate (Lopressor Tab) 50 mg BID PO 08/30/16 09:00 09/29/16 08:59 08/30/16 08:46 50 MG Montelukast Sodium (Singulair Tab) 10 mg QPM PO 08/30/16 21:00 09/29/16 20:59 Oxycodone HCl (Roxicodone Immediate Rel Tab) 20 mg Q6H PO 08/30/16 08:00 09/13/16 07:59 08/30/16 13:46 20 MG Topiramate (Topamax Tab) 100 mg BID PO 08/30/16 09:00 09/29/16 08:59 08/30/16 08:42 100 MG Pantoprazole Sodium (Protonix Tab) 40 mg QAM PO 08/30/16 09:00 09/29/16 08:59 08/30/16 08:42 40 MG Clopidogrel Bisulfate (plAVix TAB) 75 mg QAM PO 08/30/16 09:00 09/29/16 08:59 Ipratropium [place] (Atrovent 0.02% 0.5MG/2.5ML Neb) 0.5 mg Q2R PRN INH 08/30/16 07:00 09/29/16 06:59 Levalbuterol 1.25 mg 1.25 mg Q2R PRN INH 08/30/16 07:00 09/29/16 06:59 Daptomycin/Sodium Chloride (Cubicin IV/Nss 50ml) 62 ml @ 100 mls/hr DAILY@0600 IV 08/31/16 06:00 09/09/16 05:59 Nitroglycerin (Nitroglycerin 2% Oint) 1 inch Q6 EXT 08/30/16 12:00 09/29/16 11:59 08/30/16 12:26 1 INCH Heparin Sodium (Porcine) (Heparin 10 Unit/ ml 5 ml Flush) 5 ml PRN PRN FLUSH 08/30/16 09:00 09/29/16 08:59 Simvastatin 80 mg 80 mg PM PO 08/30/16 21:00 09/29/16 20:59 Heparin Sodium/ Dextrose (Heparin 25,000 Unit/500ml D5W) 500 ml @ 26 mls/hr [id number] PRN IV 08/30/16 13:15 09/29/16 13:14 08/30/16 13:35 26 MLS/HR Objective Vital Signs Date Time Temp Pulse Resp B/P Pulse Ox O2 Delivery O2 Flow Rate FiO2 08/30/16 11:55 36.6 75 18 123/75 92 Room Air 08/30/16 07:37 87 18 137/77 98 Room Air 08/30/16 07:05 36.3 86 14 134/91 97 08/30/16 06:01 86 14 08/30/16 06:00 151/102 97 Nasal Cannula 2.0 08/30/16 05:58 143/91 08/30/16 05:57 144/101 08/30/16 05:56 85 19 08/30/16 05:53 97 Nasal Cannula 2.0 08/30/16 05:51 84 19 08/30/16 05:46 81 17 08/30/16 05:41 86 15 08/30/16 05:36 83 24 08/30/16 05:33 79 08/30/16 05:31 81 20 08/30/16 05:26 92 17 08/30/16 05:21 77 18 08/30/16 05:20 153/113 08/30/16 05:19 78 20 153/113 97 Room Air 08/30/16 05:18 78 20 156/124 98 Room Air 08/30/16 05:17 156/124 08/30/16 05:16 81 19 08/30/16 05:11 77 20 08/30/16 05:06 78 16 08/30/16 05:01 79 19 08/30/16 04:56 80 22 08/30/16 04:54 78 20 117/74 98 Room Air 08/30/16 04:53 117/74 08/30/16 04:51 87 17 08/30/16 04:46 78 22 08/30/16 04:41 74 23 08/30/16 04:36 79 20 08/30/16 04:31 77 17 08/30/16 04:26 76 23 08/30/16 04:21 78 26 08/30/16 04:16 82 21 08/30/16 04:11 85 18 100 08/30/16 04:07 85 08/30/16 04:06 85 20 99 08/30/16 04:05 97 Nasal Cannula 2.0 08/30/16 04:03 163/110 08/30/16 04:02 Room Air 08/30/16 04:02 36.3 85 22 163/110 98 Room Air Physical Exam General Appearance: WD/WN, + mild distress Eyes: normal inspection ENT: normal ENT inspection, hearing grossly normal Neck: supple Respiratory/Chest: chest non-tender, lungs clear, normal breath sounds, no respiratory distress, no accessory muscle use Cardiovascular: regular rate, rhythm Abdomen: normal bowel sounds, non tender Extremities: + pertinent finding (right lower limb, healed wound with surrounding erythema. No tenderness/warmth on palpation) Neurologic/Psychiatric: alert, normal mood/affect, oriented x 3 Skin: normal color Laboratory Results 08/30/16 04:40 Red Blood Count 5.31, Mean Corpuscular Volume 87.6, Mean Corpuscular Hemoglobin 28.8, Mean Corpuscular Hemoglobin Concent 32.9, Mean Platelet Volume 9.8, Neutrophils (%) (Auto) 69.7, Lymphocytes (%) (Auto) 17.9, Monocytes (%) (Auto) 10.2, Eosinophils (%) (Auto) 1.3, Basophils (%) (Auto) 0.5, Neutrophils # (Auto ) 16.93, Lymphocytes # (Auto) 4.36, Monocytes # (Auto) 2.47, Eosinophils # (Auto ) 0.32, Basophils # (Auto) 0.13 08/30/16 04:40 Test 08/30/16 00:00 08/30/16 04:40 08/30/16 05:50 08/30/16 06:05 Lactic Acid Level 1.2 mmol/L (0.4-2.0) White Blood Count 24.31 K/uL (4.8-10.8) Red Blood Count 5.31 M/uL (4.2-5.4) Hemoglobin 15.3 g/dL (12.0-16.0) Hematocrit 46.5 % (37-47) Mean Corpuscular Volume 87.6 fL (80-100) Mean Corpuscular Hemoglobin 28.8 pg (25-34) Mean Corpuscular Hemoglobin Concent 32.9 g/dl (32-36) Platelet Count 378 K/uL (130-400) Mean Platelet Volume 9.8 fL (7.4-10.4) Neutrophils (%) (Auto) 69.7 % Lymphocytes (%) (Auto) 17.9 % Monocytes (%) (Auto) 10.2 % Eosinophils (%) (Auto) 1.3 % Basophils (%) (Auto) 0.5 % Neutrophils # (Auto) 16.93 K/uL (1.4-6.5) Lymphocytes # (Auto) 4.36 K/uL (1.2-3.4) Monocytes # (Auto) 2.47 K/uL (0.11-0.59) Eosinophils # (Auto) 0.32 K/uL (0-0.5) Basophils # (Auto) 0.13 K/uL (0-0.2) RDW Standard Deviation 46.4 fL (36.4-46.3) RDW Coefficient of Variation 14.4 % (11.5-14.5) Immature Granulocyte % (Auto) 0.4 % Immature Granulocyte # (Auto) 0.10 K/uL (0.00-0.02) Nucleated RBC Absolute Count (auto) 0.00 K/uL (0-0) Nucleated Red Blood Cells % 0.0 % Anion Gap 12.0 mmol/L (3-11) Est Creatinine Clear Calc Drug Dose 30.5 ml/min Estimated GFR () 26.5 Estimated GFR (Non- 22.8 BUN/Creatinine Ratio 8.1 (10-20) Calcium Level 9.2 mg/dl (8.5-10.1) Total Bilirubin 0.6 mg/dl (0.2-1) Aspartate Amino Transf (AST/SGOT) 14 U/L (15-37) Alanine Aminotransferase (ALT/SGPT) 18 U/L (12-78) Alkaline Phosphatase 130 U/L (45-117) Total Protein 8.3 gm/dl (6.4-8.2) Albumin 4.6 gm/dl (3.4-5.0) Globulin 3.7 gm/dl (2.5-4.0) Albumin/Globulin Ratio 1.2 (0.9-2) Lipase 202 U/L (73-393) Bedside Lactic Acid Venous 3.26 mmol/L (0.90-1.70) Urine Color DK YELLOW Urine Appearance TURBID (CLEAR) Urine pH 5.0 (4.5-7.5) Urine Specific [place] 1.028 (1.000-1.030) Urine Protein 2+ (NEG) Urine Glucose (UA) NEG (NEG) Urine Ketones TRACE (NEG) Urine Occult Blood NEG (NEG) Urine Nitrite NEG (NEG) Urine Bilirubin 1+ (NEG) Urine Urobilinogen NEG (NEG) Urine Leukocyte Esterase TRACE (NEG) Urine WBC (Auto) 10-30 /hpf (0-5) Urine RBC (Auto) 0-4 /hpf (0-4) Urine Hyaline Casts (Auto) 5-10 /lpf (0-5) Urine Epithelial Cells (Auto) >30 /lpf (0-5) Urine Bacteria (Auto) 1+ (NEG) Urine Renal Epithelial Cells /lpf (0-5) Urine Crystals CALCIUM OXALATE (NONE Urine Pathogenic Casts /lpf (0) Urine Mucus PRESENT (NONE PRSENT) Urine Yeast (Auto) (NONE PRSENT) Test 08/30/16 06:15 08/30/16 11:02 08/30/16 13:01 08/30/16 14:02 Prothrombin Time 10.6 SECONDS (9.0-12.0) Prothromb Time International Ratio 1.0 (0.9-1.1) Activated Partial Thromboplast Time 26.8 SECONDS (21.0-31.0) Partial Thromboplastin Ratio 1.0 Bedside Glucose 132 mg/dl (70-90) Creatine Kinase MB Ratio (0-3.0) Assessment and Plan 55-year-old female with a past medical history of type 2 diabetes, attention, hypertension, hyperlipidemia, hypothyroidism, GERD, chronic pain syndrome, neuropathy and asthma presented to the ED with complaints of persistent chest pain that started after midnight yesterday. She was in the ED with a friend yesterday and had develop chest pain and a burning sensation/heaviness in her right arm. She had about 2 episodes of vomiting and to return to the ER to be evaluated for chest pain. NSTEMI - EKG on presentation: Normal sinus rhythm Possible Left atrial enlargement Left axis deviation Poor R-wave progression: anterior HI vs. lead placement vs. LVH (cited on or before 29-AUG-2015) Nonspecific ST abnormality Abnormal ECG When compared with ECG of 30-AUG-2016 04:02, No significant change was found . - EKG this morning:Normal sinus rhythm Left axis deviation Low voltage QRS Prolonged QT ST depressions V2 - V3 have improved Abnormal ECG When compared with ECG of 30-AUG-2016 05:12, No significant change was found - Initial troponin negative, troponins trended every 8 hours- repeat troponin at 25.8 - Echo ordered - Cardiology consult- appreciate recommendations -Started on heparin drip due to increased troponins - Intolerance to aspirin and NSAIDS( breathing difficulties) -Metoprolol 50 mg twice a day - Nitropaste every 6 hours - Lipid panel pending Acute kidney injury - Creatinine on presentation 2.3, baseline 0.66 - Continue IV fluids - Monitor creatinine ?UTI : -Recent admission for UTI 07/25- 07/28- pansensitive Escherichia coli - UA- 10-30 wbc's , 1+ bacteria, negative nitrite - Urine culture pending - Continue daptomycin, Primaxin discontinued - ID consult appreciated Type 2 diabetes: - hold home meds - Insulin sliding scale Hypothyroidism -continue levothyroxine sodium at 150 g by mouth daily. Depression/anxiety -continue amitriptyline 50 mg by mouth at bedtime and fluoxetine 40 mg by mouth at bedtime. Chronic pain syndrome - continue OxyContin 20 mg by mouth 4 times daily, and morphine sulfate 2 mg IV every 30 minutes when necessary. GERD - 40 mg Protonix daily Peripheral neuropathy - Gabapentin 800 mg 3 times a day Asthma/allergy : - continue Singulair 10 mg every morning. - Xopenex/Atrovent Full code DVT prophylaxis: Heparin Disposition: Monitor in telemetry Resident Tracking Resident Involvement: Resident Care Provided Care Provided: Adult Hospital Medicine Reviewed: Pt Seen/Exam by Me History has had substernal chest pain since am. received multiple doses of nitroglycerine. Constitutional: denies: fever Respiratory: negative: short of breath Cardiovascular: reports chest pain (mid substernal off and on since am) Gastrointestinal/Abdominal: negative: abdominal pain General Appearance: no apparent distress Respiratory: lungs clear, no respiratory distress Cardiovascular: regular rate, rhythm Neurologic/Psychiatric: alert, oriented x 3 Assessment/Plan I have reviewed the medical record and performed a history and physical examination of this patient today. I have discussed the case with Dr. Montero. The above note reflects my findings, conclusions, and recommendations.
[2016-08-30] MEDS ORDERED: DAPTOMYCIN CONSULT ACTIVE PRN ×2 (15:45)
[2016-08-30] MEDS ORDERED: MoRPHine SULFATE 2 MG/ML CARP IV STA (15:55)
[2016-08-30 16:10] VITALS: BP 126/79; PULSE 76; TEMP 36.7; O2SAT 95
--- NOTE | 2016-08-30 19:35 | ECHOCARDIOGRAM REPORT ---
*NOTICE TO RECEIVING LIBERTARIAN AGENCY This information is strictly Confidential and protected under [place] law. [place] law prohibits you from making any further disclosure of this information unless further disclosure is expressly permitted by the written consent of the person to whom it pertains or is authorized by law. A general authorization for the release of medical or other information is not sufficient for this purpose. Hospital accepts no responsibility if the information is made available to any other person, INCLUDING THE PATIENT. Interpretation Summary * Name: GEOVANY CARBAJAL Study Date: 08/30/2016 03:16 PM BP: 151/102 mmHg * Patient Location: C.2E\S\E201\S\1 HR: 86 * : 1960 (M/d/yyyy) Gender: Female Height: 61 in * Age: 55 yrs Ethnicity: [place] Weight: 236 lb * Ordering Physician: Manny Duffy * Referring Physician: Self, Referred * Performed By: Ariella Montero RDCS * * Reason For Study: ACS, wide complex tachycardia * BSA: 2.0 m2 * Normal biventricular systolic function. * Left ventricular diastolic dysfunction. * Normal chamber dimensions. * No significant valvular abnormalities. * -- Conclusions -- * Aortic valve sclerosis mild, without significant aortic valvular stenosis. Procedure Details * A complete two-dimensional transthoracic echocardiogram was performed (2D, M-mode, Doppler and color flow Doppler). Left Ventricle * The left ventricle is normal in size. * There is normal left ventricular wall thickness. * Ejection Fraction = 60-65%. * Left ventricular systolic function is normal. * A full diastolic examination was done with clinical findings of Class I diastolic dysfunction. * The left ventricular wall motion is normal. Right Ventricle * The right ventricle is normal in size and function. Atria * The left atrial size is normal. * Right atrial size is normal. * No ASD detected; PFO is not assessed. Mitral Valve * The mitral valve is grossly normal. * There is no mitral valve stenosis. * There is no mitral regurgitation noted. Tricuspid Valve * The tricuspid valve is not well visualized. * There is no tricuspid stenosis. * There is trace tricuspid regurgitation. * Right ventricular systolic pressure is normal. Aortic Valve * The aortic valve opens well. * The aortic valve is trileaflet. * Aortic valve sclerosis mild, without significant aortic valvular stenosis. * No hemodynamically significant valvular aortic stenosis. * No aortic regurgitation is present. Pulmonic Valve * The pulmonic valve is not well visualized. * The pulmonary valve is inadequately visualized, but the Doppler data is adequate for interpretation. * There is no pulmonic valvular stenosis. * There is no significant pulmonary regurgitation. Great Vessels * The aortic root is normal size. Pericardium/Pleural * There is no pericardial effusion. Great Vessels * Normal inferior vena cava diameter and respiratory variation suggests normal central venous pressure. MMode 2D Measurements and Calculations IVSd 0.92 cm LVIDd 4.5 cm LVIDs 2.8 cm LVPWd 1.0 cm IVS/LVPW 0.90 FS 37.1 % EDV(Teich) 90.1 ml ESV(Teich) 29.6 ml EF(Teich) 67.2 % EDV(cubed) 88.2 ml ESV(cubed) 22.0 ml EF(cubed) 75.1 % LV mass(C)d 144.1 grams LV mass(C)dI 71.1 grams/m\S\2 CO(Teich) 3.8 l/min CI(Teich) 1.9 l/min/m\S\2 SV(Teich) 60.6 ml SI(Teich) 29.9 ml/m\S\2 CO(cubed) 4.2 l/min CI(cubed) 2.1 l/min/m\S\2 SV(cubed) 66.3 ml SI(cubed) 32.7 ml/m\S\2 Ao root diam 3.3 cm Ao root area 8.7 cm\S\2 ACS 2.0 cm LA dimension 2.2 cm asc Aorta Diam 3.3 cm LA/Ao 0.68 LVOT diam 2.0 cm LVOT area 3.3 cm\S\2 LVAd ap4 29.5 cm\S\2 LVLd ap4 8.4 cm EDV(MOD-sp4) 87.0 ml LVAs ap4 16.1 cm\S\2 LVLs ap4 6.6 cm ESV(MOD-sp4) 33.2 ml EF(MOD-sp4) 61.8 % LVAd ap2 30.1 cm\S\2 LVLd ap2 7.7 cm EDV(MOD-sp2) 99.8 ml LVAs ap2 15.1 cm\S\2 LVLs ap2 5.7 cm ESV(MOD-sp2) 35.4 ml EF(MOD-sp2) 64.5 % CO(MOD-sp4) 3.4 l/min CI(MOD-sp4) 1.7 l/min/m\S\2 SV(MOD-sp4) 53.8 ml SI(MOD-sp4) 26.5 ml/m\S\2 CO(MOD-sp2) 4.1 l/min CI(MOD-sp2) 2.0 l/min/m\S\2 SV(MOD-sp2) 64.4 ml SI(MOD-sp2) 31.8 ml/m\S\2 Doppler Measurements and Calculations MV E max coral 123.7 cm/sec MV A max coral 128.5 cm/sec MV E/A 0.96 MV dec time 0.25 sec Ao V2 max 177.4 cm/sec Ao max PG 12.6 mmHg Ao max PG (full) 7.9 mmHg ONI(V,A) 2.0 cm\S\2 ONI(V,D) 2.0 cm\S\2 LV V1 max PG 4.7 mmHg LV V1 max 108.7 cm/sec PA V2 max 111.3 cm/sec PA max PG 5.0 mmHg PA acc slope 1318.5 cm/sec\S\2 PA acc time 0.07 sec TR max coral 155.6 cm/sec PA pr(Accel) 45.7 mmHg
[2016-08-30 19:51] VITALS: BP 101/58; PULSE 78; TEMP 36.4; O2SAT 92
[2016-08-30] MEDS: FLUOXETINE HCL 20 MG CAP PO SCH (20:31)
[2016-08-30] MEDS: MONTELUKAST SOD 10 MG TAB PO SCH (20:31)
[2016-08-30] MEDS ORDERED: SIMVASTATIN 80 MG TAB PO SCH (21:00)
[2016-08-30 22:53] LABS: CKMB/CK RATIO 11.1 (0-3.0)
[2016-08-30] MEDS: BUTALBITAL/ACETAMIN/CAFFEINE TAB PO PRN (23:24)
[2016-08-30 23:27] VITALS: BP 99/61; PULSE 77; TEMP 36.8; O2SAT 96
[2016-08-31] VITALS (8 sets, daily range): BP systolic 107–169; BP diastolic 68–97; PULSE 72–106; TEMP 36.8–37.4; O2SAT 92–95
[2016-08-31] MEDS: OXYCODONE HCL IR 5 MG TAB (IMMEDIATE RELEASE) PO SCH ×4 (00:52→19:33)
[2016-08-31] MEDS: MoRPHine SULFATE 2 MG/ML CARP IV PRN ×5 (01:38→21:15)
[2016-08-31] MEDS: SODIUM CHLORIDE 0.9% 1000ML 1,000 ML IV SCH ×2 (01:38→11:15)
[2016-08-31] MEDS: DAPTOmycin IV 600 MG in SODIUM CHLORIDE 0.9% 50ML 50 ML IV SCH (04:52)
[2016-08-31] MEDS: ACETAMINOPHEN 325 MG TAB PO PRN ×2 (04:52→20:24)
[2016-08-31] MEDS: LEVOTHYROXINE 150 MCG TAB PO SCH (04:53)
[2016-08-31] MEDS: NITROGLYCERIN 2% OINTMENT 30GM TUBE EXT SCH ×3 (05:04→17:37)
[2016-08-31 06:39] LABS: PARTIAL THROMBOPLASTIN RATIO 1.6; PROTHROMBIN TIME (PATIENT) 10.4 SECONDS (9.0-12.0)
[2016-08-31] MEDS ORDERED: HEPARIN IV BOLUS 3,000 UNIT in SYRINGE 0 ML IV STA (06:52)
[2016-08-31 07:04] LABS: HEMATOCRIT 36.6 % (37-47); MEAN CELL VOLUME 88.8 fL (80-100); MEAN CORPUSCULAR HEMOGLOBIN 28.4 pg (25-34); PLATELET COUNT 373 K/uL (130-400); RED BLOOD COUNT 4.12 M/uL (4.2-5.4); WHITE BLOOD COUNT 12.72 K/uL (4.8-10.8)
[2016-08-31 07:12] LABS: ALKALINE PHOSPHATASE 97 U/L (45-117); ALT/SGPT 25 U/L (12-78); AST/SGOT 94 U/L (15-37); BLOOD UREA NITROGEN 16 mg/dl (7-18); BUN/CREATININE RATIO 20.4 (10-20); CALCIUM 8.4 mg/dl (8.5-10.1); CARBON DIOXIDE 30 mmol/L (21-32); CHLORIDE 106 mmol/L (98-107); CHOLESTEROL 192 mg/dl (0-200); CHOLESTEROL/HDL RATIO 5.6; CREATININE 0.76 mg/dl (0.60-1.20); GLUCOSE 130 mg/dl (70-99); HDL CHOLESTEROL 34 mg/dl; LDL CHOLESTEROL CALCULATED 98 mg/dl; MAGNESIUM 2.2 mg/dl (1.8-2.4); POTASSIUM 3.9 mmol/L (3.5-5.1); SODIUM 143 mmol/L (136-145); TRIGLYCERIDES 302 mg/dl (0-150); VERY LOW DENSITY LIPOPROT CALC 60 mg/dl
[2016-08-31] MEDS: NITROGLYCERIN 0.4 MG SL PER TAB CHARGE SL PRN ×2 (07:34→07:51)
[2016-08-31 07:41] LABS: BASO % 0.9 %; BASO ABS # 0.12 K/uL (0-0.2); COMPLETE YES; EOS % 5.9 %; IG% 0.2 %; LYMPH % 40.2 %; LYMPH ABS # 5.11 K/uL (1.2-3.4); MONO % 11.1 %; NEUT % 41.7 %
[2016-08-31] MEDS: GABAPENTIN 800 MG TAB PO SCH ×3 (08:00→19:27)
[2016-08-31] MEDS: CLOPIDOGREL BISULFATE 75 MG TAB PO SCH (08:00)
[2016-08-31] MEDS: PANTOprazole SOD 40 MG TAB PO SCH (08:01)
[2016-08-31] MEDS: METOPROLOL TARTRATE 50 MG TAB PO SCH ×2 (08:01→19:28)
[2016-08-31] MEDS: INSULIN ASPART 100 UNITS/ML 3 ML PEN SC SCH ×4 (08:04→20:25)
[2016-08-31] MEDS: TOPIRAMATE 100 MG TAB PO SCH ×2 (08:05→19:25)
[2016-08-31] MEDS: HEPARIN 25,000 UNIT/500ML D5W 500 ML IV PRN (09:00)
--- NOTE | 2016-08-31 09:39 | Cardiology Follow-Up ---
Subjective General Date of Service: August 31, 2016. Pt evaluation today including: conversation w/ patient, chart review, lab review, review of studies, conversation w/ performance management consultant History of Present Illness The patient is a 55 year old female Allergies Coded Allergies: Aspirin (Verified Allergy, Severe, SHORT OF BREATH, 08/25/16) Cephalexin (Verified Allergy, Severe, EDEMA OF FACE,LIPS,TONGUE, 08/30/16) Ketorolac Tromethamine (Verified Allergy, Severe, SHORTNESS OF BREATH, ) Latex2 -Systemic Allergic Response (Verified Allergy, Severe, DIFFICULTY BREATHING, 08/25/16) NSAIDs (Verified Allergy, Severe, SHORT OF BREATH, 08/25/16) Sulfa Antibiotics (Verified Allergy, Unknown, UNKNOWN- HAD RXN WHEN LITTLE , 08/25/16) Simvastatin (Verified Adverse Reaction, Intermediate, myalgias, 08/25/16) Metformin (Verified Adverse Reaction, Mild, GI SYMPTOMS, 08/25/16) Social History Smoking Status: Never Smoker Hx Tobacco Use In Past Year?: No Hx Alcohol Use - Type And Amou: No Hx Substance Use - Type And Am: No Problem List Medical Problems: (1) Abdominal wall abscess Status: Acute (2) Acute exacerbation of chronic low back pain Status: Acute (3) Anxiety State Nos Status: Chronic (4) Asthma Status: Chronic (5) Degenerative arthritis of knee Status: Chronic (6) Depressive Disorder Nec Status: Chronic (7) Diab Niyah Wo Compl, Type Ii Or Unspec Type, Not Uncntrld Status: Chronic (8) Epigastric abdominal pain Status: Acute (9) Esophageal Reflux Status: Chronic (10) Headache Status: Acute (11) Hx-Venous Thrombosis&Embolism Status: Chronic (12) Hyperlipidemia Nec/Nos Status: Chronic (13) Hypertension Status: Chronic (14) Hypertension Status: Acute (15) Hypothyroidism Nos Status: Chronic (16) Lumbar Disc Displacement Status: Chronic (17) Lumbar radiculopathy Status: Acute (18) Lumbosacral Neuritis Nos Status: Chronic (19) Morbid Obesity Status: Chronic (20) Osteoporosis Nos Status: Chronic (21) Pneumonia Status: Acute (22) Splenosis Status: Chronic (23) Substernal chest pain Status: Acute (24) Urinary tract infection Status: Acute (25) UTI (urinary tract infection) Status: Acute (26) Wide-complex tachycardia Status: Acute Review of Systems Respiratory: + shortness of breath, No cough, No dyspnea at rest Cardiac: + chest pain (required 2 SL NTG), No edema, No palpitations Additional ROS Details: ROS + anxiety, concern of money and work; all other negative Physical Exam Vital Signs Last Vital Signs Documentation Date Time Temp Pulse Resp B/P Pulse Ox O2 Delivery O2 Flow Rate FiO2 08/31/16 08:24 36.8 79 16 107/71 93 08/31/16 04:49 Room Air 08/30/16 06:00 2.0 Assessment and Plan Assessment and Plan 1) NSTEMI with Peak Troponin 29 2) Normal LV function by echo 3) ARF which has resolved 4) Diabetes Type 2, 5) Hypertension 6) Dyslipidemia 7) Family history of premature CAD Angina again this morning needing two SL NTG No acute changes on EKG this am On PLavix (no ASA secondary to breathing difficulties); will load with 600mg this am Change statin to crestor (better tolerated than Simvastatin) On BB and NTG paste and Heparin will d/w interventional cardiology RE: the timing of cath especially if she has recurrent sx's. then proceed this weekend Laboratory Results Last 24 Hours Test 08/30/16 09:33 08/30/16 10:53 08/30/16 11:02 08/30/16 14:02 Bedside Glucose 137 mg/dl 132 mg/dl Troponin I 25.800 ng/ml 28.600 ng/ml Total Creatine Kinase 774 U/L Creatine Kinase MB 91.6 ng/ml Creatine Kinase MB Ratio 11.8 Test 08/30/16 16:13 08/30/16 19:45 08/30/16 20:40 08/30/16 22:07 Bedside Glucose 134 mg/dl 115 mg/dl Activated Partial Thromboplast Time 50.8 SECONDS Partial Thromboplastin Ratio 2.0 Total Creatine Kinase 767 U/L Creatine Kinase MB 85.1 ng/ml Creatine Kinase MB Ratio 11.1 Troponin I 27.900 ng/ml Test 08/31/16 06:00 08/31/16 06:33 White Blood Count 12.72 K/uL Red Blood Count 4.12 M/uL Hemoglobin 11.7 g/dL Hematocrit 36.6 % Mean Corpuscular Volume 88.8 fL Mean Corpuscular Hemoglobin 28.4 pg Mean Corpuscular Hemoglobin Concent 32.0 g/dl Platelet Count 373 K/uL Mean Platelet Volume 10.0 fL Neutrophils (%) (Auto) 41.7 % Lymphocytes (%) (Auto) 40.2 % Monocytes (%) (Auto) 11.1 % Eosinophils (%) (Auto) 5.9 % Basophils (%) (Auto) 0.9 % Neutrophils # (Auto) 5.31 K/uL Lymphocytes # (Auto) 5.11 K/uL Monocytes # (Auto) 1.41 K/uL Eosinophils # (Auto) 0.75 K/uL Basophils # (Auto) 0.12 K/uL RDW Standard Deviation 46.7 fL RDW Coefficient of Variation 14.3 % Immature Granulocyte % (Auto) 0.2 % Immature Granulocyte # (Auto) 0.02 K/uL Prothrombin Time 10.4 SECONDS Prothromb Time International Ratio 1.0 Activated Partial Thromboplast Time 42.3 SECONDS Partial Thromboplastin Ratio 1.6 Sodium Level 143 mmol/L Potassium Level 3.9 mmol/L Chloride Level 106 mmol/L Carbon Dioxide Level 30 mmol/L Anion Gap 7.0 mmol/L Blood Urea Nitrogen 16 mg/dl Creatinine 0.76 mg/dl Est Creatinine Clear Calc Drug Dose 92.3 ml/min Estimated GFR () 100.9 Estimated GFR (Non- 87.1 BUN/Creatinine Ratio 20.4 Random Glucose 130 mg/dl Calcium Level 8.4 mg/dl Magnesium Level 2.2 mg/dl Total Bilirubin 0.3 mg/dl Direct Bilirubin < 0.1 mg/dl Aspartate Amino Transf (AST/SGOT) 94 U/L Alanine Aminotransferase (ALT/SGPT) 25 U/L Alkaline Phosphatase 97 U/L Total Protein 6.3 gm/dl Albumin 3.2 gm/dl Triglycerides Level 302 mg/dl Cholesterol Level 192 mg/dl HDL Cholesterol 34 mg/dl LDL Cholesterol, Calculated 98 mg/dl VLDL Cholesterol, Calculated 60 mg/dl Cholesterol/HDL Ratio 5.6 Bedside Glucose 117 mg/dl
[2016-08-31] MEDS ORDERED: CLOPIDOGREL BISULFATE 75 MG TAB PO ONE (10:15)
[2016-08-31] MEDS: ROSUVASTATIN CALCIUM 5 MG TAB PO SCH (11:14)
--- NOTE | 2016-08-31 11:27 | DIAGNOSTIC IMAGING REPORT ---
RENAL ULTRASOUND HISTORY: Flank pain flank pain COMPARISON: None. FINDINGS: Right kidney: Maximum dimension 12.0 cm. 1.5 cm upper pole cyst. No evidence for hydronephrosis. Normal corticomedullary differentiation and cortical thickness. Left kidney: Maximum dimension 12.2 cm. 6 mm lower pole cyst. No evidence for hydronephrosis. Normal corticomedullary differentiation and cortical thickness. Bladder: No bladder wall thickening. The bilateral ureteral jets were identified. IMPRESSION: Small bilateral renal cysts. Otherwise negative study. No evidence for hydronephrosis. Electronically signed by: Lionel Alexander M.D. 08/31/2016 11:25 AM Dictated Date/Time: 08/31/2016 11:25 AM
[2016-08-31] MEDS: ONDANSETRON INJ 2 MG/ML 2 ML VIAL IV PRN (12:17)
--- NOTE | 2016-08-31 12:24 | DIAGNOSTIC IMAGING REPORT ---
LUMBAR SPINE CT CT DOSE: 1714.68 mGy.cm HISTORY: Pain. Radicular pain. flank pain TECHNIQUE: Multiaxial CT images of the lumbar spine were performed and reformatted in the sagittal and coronal plane without the use of contrast. COMPARISON: 05/07/2015 FINDINGS: Pre-existing unchanged compression fracture at L3 with an associated vertebroplasty. Slight posterior displacement of the posterior margin of the L3 vertebral body unchanged from the prior exam. Slight compression superior endplate L5 considered old. Moderate multifactorial narrowing of the spinal canal at L2-L3 and L3-L4. This is unchanged. Degenerative changes of the remaining components of the lumbar spine are present. No change overall compared to the prior study. IMPRESSION: Chronic and postoperative change. No change in the prior study. Old compression deformity L3 with a slight old concave deformity superior endplate L5. Electronically signed by: Lionel Alexander M.D. 08/31/2016 12:22 PM Dictated Date/Time: 08/31/2016 12:20 PM
--- NOTE | 2016-08-31 13:21 | Hospitalist Progress Note ---
Hospitalist Progress Note Date of Service August 31, 2016. Subjective had 2 episodes of mid sternal chest pain this am - relieved with 2 SL NTG. also having bilateral flank pain. this is different than her chronic low back pain. pain feels crampy Constitutional: No fever Respiratory: No shortness of breath Abdomen: No nausea, No pain Objective Vital Signs Date Time Temp Pulse Resp B/P Pulse Ox O2 Delivery O2 Flow Rate FiO2 08/31/16 12:16 37.0 86 18 128/89 93 08/31/16 08:24 36.8 79 16 107/71 93 08/31/16 08:01 72 109/72 08/31/16 07:50 120/71 08/31/16 04:49 36.9 88 18 112/68 92 Room Air 08/31/16 04:00 Room Air 08/30/16 23:59 Room Air 08/30/16 23:27 36.8 77 18 99/61 96 Room Air 08/30/16 20:00 Room Air 08/30/16 19:51 36.4 78 18 101/58 92 Room Air 08/30/16 16:10 36.7 76 20 126/79 95 Room Air 08/30/16 16:00 Room Air Physical Exam General Appearance: + mild distress Respiratory/Chest: lungs clear, no respiratory distress Cardiovascular: regular rate, rhythm Abdomen: normal bowel sounds, non tender, soft Neurologic/Psychiatric: alert, oriented x 3 Skin: warm/dry Notes: No CVA tenderness Laboratory Results Last 24 Hours Test 08/30/16 14:02 08/30/16 16:13 08/30/16 19:45 08/30/16 20:40 Total Creatine Kinase 774 U/L Creatine Kinase MB 91.6 ng/ml Creatine Kinase MB Ratio 11.8 Troponin I 28.600 ng/ml Bedside Glucose 134 mg/dl 115 mg/dl Activated Partial Thromboplast Time 50.8 SECONDS Partial Thromboplastin Ratio 2.0 Test 08/30/16 22:07 08/31/16 06:00 08/31/16 06:33 08/31/16 11:07 Total Creatine Kinase 767 U/L Creatine Kinase MB 85.1 ng/ml Creatine Kinase MB Ratio 11.1 Troponin I 27.900 ng/ml White Blood Count 12.72 K/uL Red Blood Count 4.12 M/uL Hemoglobin 11.7 g/dL Hematocrit 36.6 % Mean Corpuscular Volume 88.8 fL Mean Corpuscular Hemoglobin 28.4 pg Mean Corpuscular Hemoglobin Concent 32.0 g/dl Platelet Count 373 K/uL Mean Platelet Volume 10.0 fL Neutrophils (%) (Auto) 41.7 % Lymphocytes (%) (Auto) 40.2 % Monocytes (%) (Auto) 11.1 % Eosinophils (%) (Auto) 5.9 % Basophils (%) (Auto) 0.9 % Neutrophils # (Auto) 5.31 K/uL Lymphocytes # (Auto) 5.11 K/uL Monocytes # (Auto) 1.41 K/uL Eosinophils # (Auto) 0.75 K/uL Basophils # (Auto) 0.12 K/uL RDW Standard Deviation 46.7 fL RDW Coefficient of Variation 14.3 % Immature Granulocyte % (Auto) 0.2 % Immature Granulocyte # (Auto) 0.02 K/uL Prothrombin Time 10.4 SECONDS Prothromb Time International Ratio 1.0 Activated Partial Thromboplast Time 42.3 SECONDS Partial Thromboplastin Ratio 1.6 Sodium Level 143 mmol/L Potassium Level 3.9 mmol/L Chloride Level 106 mmol/L Carbon Dioxide Level 30 mmol/L Anion Gap 7.0 mmol/L Blood Urea Nitrogen 16 mg/dl Creatinine 0.76 mg/dl Est Creatinine Clear Calc Drug Dose 92.3 ml/min Estimated GFR () 100.9 Estimated GFR (Non- 87.1 BUN/Creatinine Ratio 20.4 Random Glucose 130 mg/dl Calcium Level 8.4 mg/dl Magnesium Level 2.2 mg/dl Total Bilirubin 0.3 mg/dl Direct Bilirubin < 0.1 mg/dl Aspartate Amino Transf (AST/SGOT) 94 U/L Alanine Aminotransferase (ALT/SGPT) 25 U/L Alkaline Phosphatase 97 U/L Total Protein 6.3 gm/dl Albumin 3.2 gm/dl Triglycerides Level 302 mg/dl Cholesterol Level 192 mg/dl HDL Cholesterol 34 mg/dl LDL Cholesterol, Calculated 98 mg/dl VLDL Cholesterol, Calculated 60 mg/dl Cholesterol/HDL Ratio 5.6 Bedside Glucose 117 mg/dl 156 mg/dl Assessment and Plan 55 y/o F with hx of DM, ADD, HTN, HLD, hypothyroidism, GERD, chronic pain syndrome, neuropathy and asthma here with complaints of persistent chest pain. Day before admission patient had brought a friend to the ED yesterday and had develop chest pain and a burning sensation/heaviness in her right arm. She had about 2 episodes of vomiting. NSTEMI with f/h of CAD - EKG with no acute ST T wave changes - Initial troponin negative, troponins peaked at 29 - Echo with no WMA - Cardiology following - Continue heparin drip - Intolerance to aspirin and NSAIDS( breathing difficulties) - continue plavix - loading dose today - Metoprolol 50 mg twice a day - Nitropaste every 6 hours - Lipid panel pending - statin - now on rovustatin - chest pain again this am needing SL NTG - cardio to discuss with interventionalist about timing of LHC Acute kidney injury - Resolved - Creatinine on presentation 2.3, - d/c ivf Leukocytosis -Recent admission for UTI 07/25- 07/28- pansensitive Escherichia coli - UA- 10-30 wbc's , 1+ bacteria, negative nitrite - Urine culture negative - blood cultures pending - Continue daptomycin - and transition to doxy for MRSA skin infection. Primaxin discontinued - ID following Flank pain (different from her chronic low back pain) - Check lumbar spine CT - Renal ultrasound - no CVA tenderness though - if all negative - ? sec to bloating. add probiotics Type 2 diabetes: - hold home meds - Insulin sliding scale Hypothyroidism -continue levothyroxine sodium at 150 g by mouth daily. Depression/anxiety -continue amitriptyline 50 mg by mouth at bedtime and fluoxetine 40 mg by mouth at bedtime. Chronic pain syndrome - continue OxyContin 20 mg by mouth 4 times daily, and morphine sulfate 2 mg IV every 30 minutes when necessary. GERD - 40 mg Protonix daily Peripheral neuropathy - Gabapentin 800 mg 3 times a day Asthma/allergy : - continue Singulair 10 mg every morning. - Xopenex/Atrovent Full code DVT prophylaxis: Heparin drip Disposition: Monitor in telemetry
[2016-08-31] MEDS ORDERED: NURSING VERBAL MED ORDER ONE (15:21)
--- NOTE | 2016-08-31 16:50 | DIAGNOSTIC IMAGING REPORT ---
ABDOMEN AND PELVIS CT WITHOUT CONTRAST CT DOSE: 1517.73 mGy.cm HISTORY: Pain pain TECHNIQUE: Multiaxial CT images of the abdomen and pelvis were performed without contrast. COMPARISON STUDY: 08/07/2016. FINDINGS: lung bases are considered clear. Multiple accessory spleens are again noted. Prior cholecystectomy. Liver is uniform. Prior cholecystectomy. Mild fatty replacement of the pancreas. No evidence for an obstructing urinary tract calculus. Bowel pattern is considered nonobstructive. Findings consistent with ventral hernia repairs are again noted. Evaluation of the arterial structures is not possible due to the absence of contrast enhancement. IMPRESSION: No significant abnormality identified within the abdomen or pelvis. No evidence for an obstructing urinary tract calculus. Electronically signed by: Lionel Alexander M.D. 08/31/2016 4:49 PM Dictated Date/Time: 08/31/2016 4:47 PM
[2016-08-31] MEDS: MONTELUKAST SOD 10 MG TAB PO SCH (19:26)
[2016-08-31] MEDS: FLUOXETINE HCL 20 MG CAP PO SCH (19:27)
[2016-08-31] MEDS: ZOLPIDEM TARTRATE 5 MG TAB PO PRN (23:58)
[2016-09-01] VITALS (9 sets, daily range): BP systolic 99–139; BP diastolic 55–89; PULSE 76–100; TEMP 36.7–37.3; O2SAT 91–95
[2016-09-01] MEDS: NITROGLYCERIN 2% OINTMENT 30GM TUBE EXT SCH ×5 (00:10→22:19)
[2016-09-01] MEDS: OXYCODONE HCL IR 5 MG TAB (IMMEDIATE RELEASE) PO SCH ×4 (02:27→19:25)
[2016-09-01] MEDS: MoRPHine SULFATE 2 MG/ML CARP IV PRN ×4 (03:00→20:33)
[2016-09-01] MEDS: HEPARIN 25,000 UNIT/500ML D5W 500 ML IV PRN ×3 (03:10→20:43)
[2016-09-01] MEDS: LEVOTHYROXINE 150 MCG TAB PO SCH (05:20)
[2016-09-01] MEDS: DAPTOmycin IV 600 MG in SODIUM CHLORIDE 0.9% 50ML 50 ML IV SCH (05:22)
[2016-09-01 06:21] LABS: BASO % 0.9 %; BASO ABS # 0.11 K/uL (0-0.2); COMPLETE YES; EOS % 6.5 %; IG% 0.2 %; LYMPH % 37.5 %; LYMPH ABS # 4.81 K/uL (1.2-3.4); MEAN CELL VOLUME 90.2 fL (80-100); MEAN CORPUSCULAR HEMOGLOBIN 28.5 pg (25-34); MEAN CORPUSCULAR HGB CONC 31.6 g/dl (32-36); MEAN PLATELET VOLUME 10.2 fL (7.4-10.4); MONO % 10.3 %; NEUT % 44.6 %; PLATELET COUNT 382 K/uL (130-400); WHITE BLOOD COUNT 12.81 K/uL (4.8-10.8)
[2016-09-01 06:36] LABS: PARTIAL THROMBOPLASTIN RATIO 1.7; PROTHROMBIN TIME (PATIENT) 10.2 SECONDS (9.0-12.0)
[2016-09-01 06:42] LABS: ALT/SGPT 29 U/L (12-78); AST/SGOT 52 U/L (15-37); BLOOD UREA NITROGEN 11 mg/dl (7-18); BUN/CREATININE RATIO 13.8 (10-20); CALCIUM 8.9 mg/dl (8.5-10.1); CARBON DIOXIDE 30 mmol/L (21-32); CHLORIDE 103 mmol/L (98-107); CREATININE 0.81 mg/dl (0.60-1.20); GLUCOSE 114 mg/dl (70-99); MAGNESIUM 2.4 mg/dl (1.8-2.4); SODIUM 139 mmol/L (136-145)
[2016-09-01 06:45] LABS: ALKALINE PHOSPHATASE 100 U/L (45-117)
[2016-09-01] MEDS ORDERED: HEPARIN IV BOLUS 3,000 UNIT in SYRINGE 0 ML IV STA (06:45)
[2016-09-01] MEDS: CLOPIDOGREL BISULFATE 75 MG TAB PO SCH (08:37)
[2016-09-01] MEDS: ROSUVASTATIN CALCIUM 5 MG TAB PO SCH (08:38)
[2016-09-01] MEDS: GABAPENTIN 800 MG TAB PO SCH ×3 (08:38→19:26)
[2016-09-01] MEDS: PANTOprazole SOD 40 MG TAB PO SCH (08:38)
[2016-09-01] MEDS: TOPIRAMATE 100 MG TAB PO SCH ×2 (08:39→19:28)
[2016-09-01] MEDS: METOPROLOL TARTRATE 50 MG TAB PO SCH ×2 (08:39→19:26)
[2016-09-01] MEDS: INSULIN ASPART 100 UNITS/ML 3 ML PEN SC SCH ×4 (08:43→20:44)
[2016-09-01] MEDS ORDERED: LORAZEPAM 0.5 MG TAB PO PRN (09:15)
[2016-09-01] MEDS: NYSTATIN POWDER 15GM BTL EXT SCH ×2 (10:19→19:25)
[2016-09-01] MEDS: FLUTICASONE HFA 220 MCG INHALER INH SCH ×2 (10:19→19:25)
--- NOTE | 2016-09-01 11:10 | Cardiology Follow-Up ---
Subjective General Date of Service: September 01, 2016. Pt evaluation today including: conversation w/ patient, chart review, lab review, review of studies History of Present Illness The patient is a 55 year old female Allergies Coded Allergies: Aspirin (Verified Allergy, Severe, SHORT OF BREATH, 08/25/16) Cephalexin (Verified Allergy, Severe, EDEMA OF FACE,LIPS,TONGUE, 08/30/16) Ketorolac Tromethamine (Verified Allergy, Severe, SHORTNESS OF BREATH, ) Latex2 -Systemic Allergic Response (Verified Allergy, Severe, DIFFICULTY BREATHING, 08/25/16) NSAIDs (Verified Allergy, Severe, SHORT OF BREATH, 08/25/16) Sulfa Antibiotics (Verified Allergy, Unknown, UNKNOWN- HAD RXN WHEN LITTLE , 08/25/16) Simvastatin (Verified Adverse Reaction, Intermediate, myalgias, 08/25/16) Metformin (Verified Adverse Reaction, Mild, GI SYMPTOMS, 08/25/16) Social History Smoking Status: Never Smoker Hx Tobacco Use In Past Year?: No Hx Alcohol Use - Type And Amou: No Hx Substance Use - Type And Am: No Problem List Medical Problems: (1) Abdominal wall abscess Status: Acute (2) Acute exacerbation of chronic low back pain Status: Acute (3) Anxiety State Nos Status: Chronic (4) Asthma Status: Chronic (5) Degenerative arthritis of knee Status: Chronic (6) Depressive Disorder Nec Status: Chronic (7) Diab Niyah Wo Compl, Type Ii Or Unspec Type, Not Uncntrld Status: Chronic (8) Epigastric abdominal pain Status: Acute (9) Esophageal Reflux Status: Chronic (10) Headache Status: Acute (11) Hx-Venous Thrombosis&Embolism Status: Chronic (12) Hyperlipidemia Nec/Nos Status: Chronic (13) Hypertension Status: Chronic (14) Hypertension Status: Acute (15) Hypothyroidism Nos Status: Chronic (16) Lumbar Disc Displacement Status: Chronic (17) Lumbar radiculopathy Status: Acute (18) Lumbosacral Neuritis Nos Status: Chronic (19) Morbid Obesity Status: Chronic (20) Osteoporosis Nos Status: Chronic (21) Pneumonia Status: Acute (22) Splenosis Status: Chronic (23) Substernal chest pain Status: Acute (24) Urinary tract infection Status: Acute (25) UTI (urinary tract infection) Status: Acute (26) Wide-complex tachycardia Status: Acute Review of Systems Respiratory: No cough, No dyspnea at rest, No shortness of breath Cardiac: No chest pain, No edema, No palpitations Additional ROS Details: anxiety over procedure; no f/c/sweats; Rest ROS negative Physical Exam Vital Signs Last Vital Signs Documentation Date Time Temp Pulse Resp B/P Pulse Ox O2 Delivery O2 Flow Rate FiO2 09/01/16 08:23 36.9 76 16 99/60 95 Room Air 08/30/16 06:00 2.0 Physical Exam Constitutional: General Apperance: heathly-appearing, obese Level of Distress: NAD Lungs: Respiratory effort: no dyspnea Auscultation: breath sounds normal, no wheezing, no rales/crackles, no rhonchi Cardiovascular: Heart Auscultation: RRR, no murmurs, no rubs, no gallops Abdomen: Bowel Sounds: normal Inspection & Palpation: soft, non-distended, no tenderness, guarding & rebound, pertinent finding (obese) Extremities: no edema Assessment and Plan Assessment and Plan 1) NSTEMI with Peak Troponin 29 2) Normal LV function by echo 3) ARF which has resolved 4) Diabetes Type 2, 5) Hypertension 6) Dyslipidemia 7) Family history of premature CAD No further angina No changes on EKG this am On PLavix (no ASA secondary to breathing difficulties); loaded with 600mg on 08/31 Change statin to crestor (better tolerated than Simvastatin) On BB and NTG paste and Heparin Eventual PREETI when [employer] stable Plan cath tomorrow, NPO after MN, risks and benfits discussed in detail, Renal function normal now, only on SS Insulin so no DM meds to hold IVF 75 cc/hr starting at MN x 1 liter Laboratory Results Last 24 Hours Test 08/31/16 11:07 08/31/16 14:38 08/31/16 16:14 08/31/16 20:03 Bedside Glucose 156 mg/dl 137 mg/dl 94 mg/dl Activated Partial Thromboplast Time 50.7 SECONDS Partial Thromboplastin Ratio 2.0 Test 09/01/16 05:19 09/01/16 06:32 White Blood Count 12.81 K/uL Red Blood Count 4.10 M/uL Hemoglobin 11.7 g/dL Hematocrit 37.0 % Mean Corpuscular Volume 90.2 fL Mean Corpuscular Hemoglobin 28.5 pg Mean Corpuscular Hemoglobin Concent 31.6 g/dl Platelet Count 382 K/uL Mean Platelet Volume 10.2 fL Neutrophils (%) (Auto) 44.6 % Lymphocytes (%) (Auto) 37.5 % Monocytes (%) (Auto) 10.3 % Eosinophils (%) (Auto) 6.5 % Basophils (%) (Auto) 0.9 % Neutrophils # (Auto) 5.72 K/uL Lymphocytes # (Auto) 4.81 K/uL Monocytes # (Auto) 1.32 K/uL Eosinophils # (Auto) 0.83 K/uL Basophils # (Auto) 0.11 K/uL RDW Standard Deviation 47.5 fL RDW Coefficient of Variation 14.4 % Immature Granulocyte % (Auto) 0.2 % Immature Granulocyte # (Auto) 0.02 K/uL Prothrombin Time 10.2 SECONDS Prothromb Time International Ratio 1.0 Activated Partial Thromboplast Time 44.6 SECONDS Partial Thromboplastin Ratio 1.7 Sodium Level 139 mmol/L Potassium Level 4.0 mmol/L Chloride Level 103 mmol/L Carbon Dioxide Level 30 mmol/L Anion Gap 6.0 mmol/L Blood Urea Nitrogen 11 mg/dl Creatinine 0.81 mg/dl Est Creatinine Clear Calc Drug Dose 87.4 ml/min Estimated GFR () 93.4 Estimated GFR (Non- 80.6 BUN/Creatinine Ratio 13.8 Random Glucose 114 mg/dl Calcium Level 8.9 mg/dl Magnesium Level 2.4 mg/dl Total Bilirubin 0.4 mg/dl Direct Bilirubin < 0.1 mg/dl Aspartate Amino Transf (AST/SGOT) 52 U/L Alanine Aminotransferase (ALT/SGPT) 29 U/L Alkaline Phosphatase 100 U/L Total Protein 7.0 gm/dl Albumin 3.5 gm/dl Bedside Glucose 127 mg/dl
--- NOTE | 2016-09-01 11:38 | Hospitalist Progress Note ---
Hospitalist Progress Note Date of Service September 01, 2016. Subjective has been feeling anxious since morning. worried about the outcome of LHC. noted irritation in groin. has had extensive infection in past hasn't been getting advair and flonase. Constitutional: No fever Respiratory: + wheezing Cardiovascular: No chest pain Abdomen: + problem reported (flank pain still present), No pain Objective Vital Signs Date Time Temp Pulse Resp B/P Pulse Ox O2 Delivery O2 Flow Rate FiO2 09/01/16 08:23 36.9 76 16 99/60 95 Room Air 09/01/16 04:00 Room Air 09/01/16 04:00 36.9 79 18 117/63 95 09/01/16 00:01 Room Air 08/31/16 23:59 37.4 83 18 116/85 92 Room Air 08/31/16 20:00 Room Air 08/31/16 19:30 36.9 106 18 169/97 93 Room Air 08/31/16 16:05 Room Air 08/31/16 15:57 36.9 85 18 149/76 95 Room Air 08/31/16 12:16 37.0 86 18 128/89 93 08/31/16 12:00 Room Air Physical Exam General Appearance: no apparent distress Respiratory/Chest: no respiratory distress, + wheezing (occasional) Cardiovascular: regular rate, rhythm Abdomen: normal bowel sounds, non tender, soft Neurologic/Psychiatric: alert, oriented x 3 Skin: warm/dry, + pertinent finding (left groin with minimal erythema) Laboratory Results Last 24 Hours Test 08/31/16 14:38 08/31/16 16:14 08/31/16 20:03 09/01/16 05:19 Activated Partial Thromboplast Time 50.7 SECONDS 44.6 SECONDS Partial Thromboplastin Ratio 2.0 1.7 Bedside Glucose 137 mg/dl 94 mg/dl White Blood Count 12.81 K/uL Red Blood Count 4.10 M/uL Hemoglobin 11.7 g/dL Hematocrit 37.0 % Mean Corpuscular Volume 90.2 fL Mean Corpuscular Hemoglobin 28.5 pg Mean Corpuscular Hemoglobin Concent 31.6 g/dl Platelet Count 382 K/uL Mean Platelet Volume 10.2 fL Neutrophils (%) (Auto) 44.6 % Lymphocytes (%) (Auto) 37.5 % Monocytes (%) (Auto) 10.3 % Eosinophils (%) (Auto) 6.5 % Basophils (%) (Auto) 0.9 % Neutrophils # (Auto) 5.72 K/uL Lymphocytes # (Auto) 4.81 K/uL Monocytes # (Auto) 1.32 K/uL Eosinophils # (Auto) 0.83 K/uL Basophils # (Auto) 0.11 K/uL RDW Standard Deviation 47.5 fL RDW Coefficient of Variation 14.4 % Immature Granulocyte % (Auto) 0.2 % Immature Granulocyte # (Auto) 0.02 K/uL Prothrombin Time 10.2 SECONDS Prothromb Time International Ratio 1.0 Sodium Level 139 mmol/L Potassium Level 4.0 mmol/L Chloride Level 103 mmol/L Carbon Dioxide Level 30 mmol/L Anion Gap 6.0 mmol/L Blood Urea Nitrogen 11 mg/dl Creatinine 0.81 mg/dl Est Creatinine Clear Calc Drug Dose 87.4 ml/min Estimated GFR () 93.4 Estimated GFR (Non- 80.6 BUN/Creatinine Ratio 13.8 Random Glucose 114 mg/dl Calcium Level 8.9 mg/dl Magnesium Level 2.4 mg/dl Total Bilirubin 0.4 mg/dl Direct Bilirubin < 0.1 mg/dl Aspartate Amino Transf (AST/SGOT) 52 U/L Alanine Aminotransferase (ALT/SGPT) 29 U/L Alkaline Phosphatase 100 U/L Total Protein 7.0 gm/dl Albumin 3.5 gm/dl Test 09/01/16 06:32 Bedside Glucose 127 mg/dl Assessment and Plan 55 y/o F with hx of DM, ADD, HTN, HLD, hypothyroidism, GERD, chronic pain syndrome, neuropathy and asthma here with complaints of persistent chest pain. Day before admission patient had brought a friend to the ED yesterday and had develop chest pain and a burning sensation/heaviness in her right arm. She had about 2 episodes of vomiting. NSTEMI with f/h of CAD - EKG with no acute ST T wave changes - Initial troponin negative, troponin peaked at 29 - Echo with no WMA - Cardiology following - Continue heparin drip - Intolerance to aspirin and NSAIDS ( breathing difficulties) - continue plavix - s/p loading dose - Metoprolol 50 mg twice a day - Nitropaste every 6 hours - statin added - rovustatin - no more chest pain. Acute kidney injury - Resolved - Creatinine on presentation 2.3, - d/c ivf Leukocytosis -Recent admission for UTI 07/25- 07/28- pansensitive Escherichia coli - UA- 10-30 wbc's , 1+ bacteria, negative nitrite - Urine culture negative - blood cultures pending - Continue daptomycin - and transition to doxy for MRSA skin infection. Primaxin discontinued - ID following Flank pain (different from her chronic low back pain) - Check lumbar spine CT - Renal ultrasound - no CVA tenderness though - if all negative - ? sec to bloating. add probiotics Type 2 diabetes: - hold home meds - Insulin sliding scale Hypothyroidism - continue levothyroxine sodium at 150 g by mouth daily. Depression/anxiety - continue amitriptyline 50 mg by mouth at bedtime and fluoxetine 40 mg by mouth at bedtime. - add prn lorazepam daily while here Intertrigo - add nystatin powder Chronic pain syndrome - continue OxyContin 20 mg by mouth 4 times daily, and morphine sulfate 2 mg IV every 30 minutes when necessary. GERD - 40 mg Protonix daily Peripheral neuropathy - Gabapentin 800 mg 3 times a day Asthma/allergy : - continue Singulair 10 mg every morning. - Xopenex/Atrovent - advair on hold. add flovent instead for now. - flonase Full code DVT prophylaxis: Heparin drip Disposition: Monitor in telemetry
[2016-09-01 14:56] LABS: PARTIAL THROMBOPLASTIN RATIO 2.3
[2016-09-01] MEDS: FLUTICASONE PROPIONATE NA SPR 16 GM BTL SCH (19:26)
[2016-09-01] MEDS: FLUOXETINE HCL 20 MG CAP PO SCH (19:27)
[2016-09-01] MEDS: MONTELUKAST SOD 10 MG TAB PO SCH (19:28)
[2016-09-01] MEDS ORDERED: NURSING VERBAL MED ORDER ONE (20:30)
[2016-09-01] MEDS: TOPIRAMATE 50 MG TAB PO SCH (20:44)
[2016-09-01] MEDS: NITROGLYCERIN 0.4 MG SL PER TAB CHARGE SL PRN (22:16)
[2016-09-01] MEDS: ZOLPIDEM TARTRATE 5 MG TAB PO PRN (23:35)
[2016-09-01] MEDS: BUTALBITAL/ACETAMIN/CAFFEINE TAB PO PRN (23:43)
[2016-09-02] VITALS (7 sets, daily range): BP systolic 87–139; BP diastolic 61–85; PULSE 62–80; TEMP 36.6–37.2; O2SAT 90–96
[2016-09-02] MEDS ORDERED: SODIUM CHLORIDE 0.9% 1000ML 1,000 ML IV SCH
[2016-09-02] MEDS: OXYCODONE HCL IR 5 MG TAB (IMMEDIATE RELEASE) PO SCH ×4 (02:20→21:01)
[2016-09-02] MEDS: DAPTOmycin IV 600 MG in SODIUM CHLORIDE 0.9% 50ML 50 ML IV SCH (04:54)
[2016-09-02] MEDS: NITROGLYCERIN 2% OINTMENT 30GM TUBE EXT SCH ×3 (04:54→17:03)
[2016-09-02] MEDS: LEVOTHYROXINE 150 MCG TAB PO SCH (04:54)
[2016-09-02 05:58] LABS: BASO % 0.8 %; BASO ABS # 0.09 K/uL (0-0.2); COMPLETE YES; EOS % 8.3 %; HEMATOCRIT 35.7 % (37-47); IG% 0.2 %; LYMPH % 33.9 %; LYMPH ABS # 3.99 K/uL (1.2-3.4); MEAN CELL VOLUME 90.2 fL (80-100); MEAN CORPUSCULAR HEMOGLOBIN 28.8 pg (25-34); MEAN CORPUSCULAR HGB CONC 31.9 g/dl (32-36); MEAN PLATELET VOLUME 10.2 fL (7.4-10.4); MONO % 11.2 %; NEUT % 45.6 %; PLATELET COUNT 377 K/uL (130-400); RED BLOOD COUNT 3.96 M/uL (4.2-5.4); WHITE BLOOD COUNT 11.77 K/uL (4.8-10.8)
[2016-09-02 06:13] LABS: PARTIAL THROMBOPLASTIN RATIO 1.9; PROTHROMBIN TIME (PATIENT) 10.6 SECONDS (9.0-12.0)
[2016-09-02 06:30] LABS: CALCIUM 8.7 mg/dl (8.5-10.1); CREATININE 0.72 mg/dl (0.60-1.20); MAGNESIUM 2.3 mg/dl (1.8-2.4); POTASSIUM 4.2 mmol/L (3.5-5.1)
[2016-09-02] MEDS: INSULIN ASPART 100 UNITS/ML 3 ML PEN SC SCH ×4 (07:00→21:00)
[2016-09-02] MEDS: PANTOprazole SOD 40 MG TAB PO SCH (08:52)
[2016-09-02] MEDS: CLOPIDOGREL BISULFATE 75 MG TAB PO SCH (08:52)
[2016-09-02] MEDS: GABAPENTIN 800 MG TAB PO SCH ×3 (08:53→21:03)
[2016-09-02] MEDS: METOPROLOL TARTRATE 50 MG TAB PO SCH ×2 (08:53→21:04)
[2016-09-02] MEDS: ROSUVASTATIN CALCIUM 5 MG TAB PO SCH (08:53)
[2016-09-02] MEDS: FLUTICASONE PROPIONATE NA SPR 16 GM BTL SCH ×2 (08:54→21:01)
[2016-09-02] MEDS: NYSTATIN POWDER 15GM BTL EXT SCH ×2 (08:54→21:02)
[2016-09-02] MEDS: TOPIRAMATE 50 MG TAB PO SCH (08:56)
[2016-09-02] MEDS: FLUTICASONE HFA 220 MCG INHALER INH SCH ×2 (09:02→21:01)
--- NOTE | 2016-09-02 09:34 | CARDIOLOGY PROGRESS NOTE ---
DATE: 09/02/2016 SUBJECTIVE: Ms. Cummings is resting comfortably in bed without complaints of chest pain or dyspnea. She did apparently have an episode of angina pectoris early Friday morning. We have discussed the need for cardiac catheterization. The patient understands and agrees to proceed. OBJECTIVE: VITAL SIGNS: Blood pressure is 120/80 with a regular pulse of 72. Respiratory rate is 16. The patient is afebrile at 36.8 degrees Celsius. Saturation is 91% on room air. NECK: Supple with full carotid upstrokes. There are no carotid bruits. Jugular venous pressure is flat at 90 degrees. There is no thyromegaly. CARDIOVASCULAR: Reveals a regular rhythm with normal S1 and S2. No S3, S4 or murmurs are noted. LUNGS: Clear without rales, rhonchi or wheeze. ABDOMEN: Soft, nontender, without bruits. EXTREMITIES: Reveal intact radial artery pulses bilaterally. There is no peripheral edema. DATA: CBC notes hemoglobin 11.4, hematocrit 35.7, white count 11.7, platelet count 377,000. Electrolytes note sodium of 140, potassium 4.2, chloride 104, bicarb 29, BUN 12, creatinine 0.7, glucose 134. Troponin I level peaked at 28.6. CK peaked at 774 with an MB fraction of 91.6. EKG notes normal sinus rhythm with low voltage throughout, but no other changes. jigsawyer is benign. MEDICATIONS: 1. Heparin drip. 2. Metoprolol tartrate 50 mg b.i.d. 3. Nitro paste 1 inch q. 6 hours. 4. Crestor 20 mg at bedtime. 5. Plavix 75 mg per day. 6. Flovent 1 puff b.i.d. 7. Prozac 40 mg at bedtime. 8. Singulair 10 mg daily. 9. Neurontin 800 mg t.i.d. 10. Protonix 40 mg per day. IMPRESSION AND PLAN: 1. Non-ST elevation myocardial infarction -- the patient now stable on heparin and usual post myocardial infarction medications. She has an ASPIRIN ALLERGY, and therefore, that medication has not been used. We will proceed with cardiac catheterization later this morning. 2. Normal left ventricular systolic function. 3. Hypertension -- controlled. 4. Hypercholesterolemia -- continue statin. 5. Diabetes mellitus. 6. Acute renal failure -- resolved.
--- NOTE | 2016-09-02 10:04 | Infectious Disease Progress Nt ---
Progress Note Date of Service September 02, 2016. Subjective Pt evaluation today including: conversation w/ patient, physical exam, chart review, lab review, review of studies, conversation w/ learning consultant, review of inpatient medication list Recent events reviewed. Patient awaiting heart catheterization later this morning. Remains afebrile. Blood cultures remain negative. All Other Systems: Reviewed and Negative Medications Current Inpatient Medications Medications (Trade) Dose Ordered Sig/Sid Route Start Time Stop Time Status Last Admin Dose Admin Acetaminophen (Tylenol Tab) 650 mg Q4H PRN PO 08/30/16 06:15 09/29/16 06:14 08/31/16 20:24 650 MG Zolpidem Tartrate (Ambien Tab) 5 mg HSZ PRN PO 08/30/16 06:15 09/29/16 06:14 09/01/16 23:35 5 MG Nitroglycerin (Nitrostat Tab) 0.4 mg UD PRN SL 08/30/16 06:15 09/29/16 06:14 09/01/16 22:16 0.4 MG Ondansetron HCl (Zofran Inj) 4 mg Q6H PRN IV 08/30/16 06:15 09/29/16 06:14 08/31/16 12:17 4 MG Insulin Aspart (novoLOG ASPART) SLIDING SCALE If C... ACHS SC 08/30/16 07:00 09/29/16 06:59 09/01/16 18:27 4 UNITS Glucose (Glucose 40% Gel) UD PRN PO 08/30/16 06:15 09/29/16 06:14 Glucose (Glucose Chew Tab) 1 tabs UD PRN PO 08/30/16 06:15 09/29/16 06:14 Dextrose (Dextrose 50% 50ML Syringe) 50 ml UD PRN IV 08/30/16 06:15 09/29/16 06:14 Glucagon (Glucagon Inj) 1 mg UD PRN SQ 08/30/16 06:15 09/29/16 06:14 Acetaminophen/ Butalbital/ Caffeine (Fioricet Tab) 1 tab DAILY PRN PO 08/30/16 06:15 09/29/16 06:14 09/01/16 23:43 1 TAB Fluoxetine HCl (Prozac Cap) 40 mg HS PO 08/30/16 21:00 09/29/16 20:59 5/7/17 19:27 40 MG Gabapentin (Neurontin Tab) 800 mg TID PO 08/30/16 09:00 09/29/16 08:59 09/02/16 08:53 800 MG Levothyroxine Sodium (Synthroid Tab) 150 mcg DAILYBB PO 08/30/16 08:00 09/29/16 07:59 09/02/16 04:54 150 MCG Loratadine (Claritin Tab) 10 mg DAILY PRN PO 08/30/16 06:15 09/29/16 06:14 09/02/16 08:55 10 MG Metoprolol Tartrate (Lopressor Tab) 50 mg BID PO 08/30/16 09:00 09/29/16 08:59 09/02/16 08:53 50 MG Montelukast Sodium (Singulair Tab) 10 mg QPM PO 08/30/16 21:00 09/29/16 20:59 09/01/16 19:28 10 MG Oxycodone HCl (Roxicodone Immediate Rel Tab) 20 mg Q6H PO 08/30/16 08:00 09/13/16 07:59 09/02/16 09:02 20 MG Pantoprazole Sodium (Protonix Tab) 40 mg QAM PO 08/30/16 09:00 09/29/16 08:59 09/02/16 08:52 40 MG Clopidogrel Bisulfate (plAVix TAB) 75 mg QAM PO 08/30/16 09:00 09/29/16 08:59 09/02/16 08:52 75 MG Ipratropium [place] (Atrovent 0.02% 0.5MG/2.5ML Neb) 0.5 mg Q2R PRN INH 08/30/16 07:00 09/29/16 06:59 Levalbuterol 1.25 mg 1.25 mg Q2R PRN INH 08/30/16 07:00 09/29/16 06:59 Daptomycin/Sodium Chloride (Cubicin IV/Nss 50ml) 62 ml @ 100 mls/hr DAILY@0600 IV 08/31/16 06:00 09/09/16 05:59 09/02/16 04:54 100 MLS/HR Nitroglycerin (Nitroglycerin 2% Oint) 1 inch Q6 EXT 08/30/16 12:00 09/29/16 11:59 09/01/16 22:19 1 INCH Heparin Sodium (Porcine) 5 ml 5 ml PRN PRN FLUSH 08/30/16 09:00 09/29/16 08:59 09/01/16 10:18 5 ML Heparin Sodium/ Dextrose (Heparin 25,000 Unit/500ml D5W) 500 ml @ 32 mls/hr [id number] PRN IV 08/30/16 13:15 09/29/16 13:14 09/01/16 20:43 32 MLS/HR Daptomycin (Consult) 1 ea UD PRN N/A 08/30/16 15:45 09/29/16 15:44 Rosuvastatin Calcium (Crestor Tab) 20 mg QAM PO 08/31/16 10:15 09/30/16 10:14 09/02/16 08:53 20 MG Fluticasone Propionate (Flovent Hfa 220MCG Inhaler) 1 puffs BID INH 09/01/16 09:00 10/01/16 08:59 09/02/16 09:02 1 PUFFS Nystatin (Mycostatin Powder) 1 appln BID EXT 09/01/16 09:00 10/01/16 08:59 09/02/16 08:54 1 APPLN Lorazepam 0.5 mg 0.5 mg DAILY PRN PO 09/01/16 09:15 10/01/16 09:14 09/01/16 10:18 0.5 MG Sodium Chloride (Nss 1000ml) 1,000 ml @ 75 mls/hr [id number] IV 09/02/16 00:00 09/02/16 13:19 09/01/16 22:23 75 MLS/HR Fluticasone Propionate (Flonase Nasal [place]) 2 sprays BID NA 09/01/16 21:00 10/01/16 20:59 09/02/16 08:54 2 SPRAYS Morphine Sulfate (MoRPHine SULFATE INJ) 2 mg Q2H PRN IV 09/01/16 20:45 09/15/16 20:44 09/01/16 20:33 2 MG Topiramate (Topamax Tab) 50 mg BID PO 09/01/16 21:00 10/01/16 20:59 Objective Vital Signs Date Time Temp Pulse Resp B/P Pulse Ox O2 Delivery O2 Flow Rate FiO2 09/02/16 08:03 36.8 72 16 120/81 91 Room Air 09/02/16 08:00 Room Air 09/02/16 04:04 37.2 70 20 100/61 91 Room Air 09/02/16 04:00 Room Air 09/02/16 00:01 Room Air 09/01/16 23:34 37.3 76 20 121/61 94 Room Air 09/01/16 22:52 100 20 139/82 94 Room Air 09/01/16 22:23 84 113/55 95 Room Air 09/01/16 22:08 82 16 103/73 94 Room Air 09/01/16 20:00 Room Air 09/01/16 19:49 37.1 90 18 120/72 94 Room Air 09/01/16 16:05 Room Air 09/01/16 15:56 36.9 83 18 127/89 94 Room Air 09/01/16 12:00 Room Air 09/01/16 11:59 36.7 76 16 99/57 91 Room Air Physical Exam General Appearance: WD/WN, no apparent distress Eyes: normal inspection, EOMI, sclerae normal ENT: normal ENT inspection, pharynx normal Neck: supple, no adenopathy, trachea midline Respiratory/Chest: chest non-tender, no respiratory distress, no accessory muscle use, + wheezing Cardiovascular: regular rate, rhythm, no gallop, no murmur Abdomen: normal bowel sounds, non tender, soft, no organomegaly Extremities: non-tender, no calf tenderness Neurologic/Psychiatric: alert, oriented x 3 Skin: normal color, + pertinent finding (Mild left groin erythema) Lymphatic: no adenopathy Laboratory Results RUN DATE: 09/01/16 [facility] LAB PAGE 1 RUN TIME: 718 Specimen Inquiry PATIENT: GEOVANY CARBAJAL LOC: [place] U # : [id number] AGE/SX: 55/F ROOM: E201 REG : 08/30/[address]: Lilia Patten M.D. : 1960 BED: 1 DIS : STATUS: ADM IN TLOC: SPEC #: [id number] TIM: 08/30/16 STATUS: RES REQ #: [id number] RECD: 08/30/[address]: Stephy Tineo D.O. SOURCE: BLOOD ENTR: 08/30/[address] [facility] [address]: Norberto Anderson [facility]: ORDERED: BLOOD CULTURE Procedure Result Verified Site BLD CULT Preliminary 09/01/16-717 NO GROWTH TO DATE. Last 24 Hours Test 09/01/16 11:21 09/01/16 14:20 09/01/16 16:13 09/01/16 20:26 Bedside Glucose 129 mg/dl 122 mg/dl 95 mg/dl Activated Partial Thromboplast Time 59.7 SECONDS Partial Thromboplastin Ratio 2.3 Test 09/02/16 05:20 09/02/16 06:39 White Blood Count 11.77 K/uL Red Blood Count 3.96 M/uL Hemoglobin 11.4 g/dL Hematocrit 35.7 % Mean Corpuscular Volume 90.2 fL Mean Corpuscular Hemoglobin 28.8 pg Mean Corpuscular Hemoglobin Concent 31.9 g/dl Platelet Count 377 K/uL Mean Platelet Volume 10.2 fL Neutrophils (%) (Auto) 45.6 % Lymphocytes (%) (Auto) 33.9 % Monocytes (%) (Auto) 11.2 % Eosinophils (%) (Auto) 8.3 % Basophils (%) (Auto) 0.8 % Neutrophils # (Auto) 5.37 K/uL Lymphocytes # (Auto) 3.99 K/uL Monocytes # (Auto) 1.32 K/uL Eosinophils # (Auto) 0.98 K/uL Basophils # (Auto) 0.09 K/uL RDW Standard Deviation 47.1 fL RDW Coefficient of Variation 14.3 % Immature Granulocyte % (Auto) 0.2 % Immature Granulocyte # (Auto) 0.02 K/uL Prothrombin Time 10.6 SECONDS Prothromb Time International Ratio 1.0 Activated Partial Thromboplast Time 48.1 SECONDS Partial Thromboplastin Ratio 1.9 Sodium Level 140 mmol/L Potassium Level 4.2 mmol/L Chloride Level 104 mmol/L Carbon Dioxide Level 29 mmol/L Anion Gap 7.0 mmol/L Blood Urea Nitrogen 12 mg/dl Creatinine 0.72 mg/dl Est Creatinine Clear Calc Drug Dose 97.2 ml/min Estimated GFR () 107.7 Estimated GFR (Non- 93.0 BUN/Creatinine Ratio 17.0 Random Glucose 134 mg/dl Calcium Level 8.7 mg/dl Magnesium Level 2.3 mg/dl Total Bilirubin 0.3 mg/dl Direct Bilirubin 0.1 mg/dl Aspartate Amino Transf (AST/SGOT) 30 U/L Alanine Aminotransferase (ALT/SGPT) 24 U/L Alkaline Phosphatase 97 U/L Total Protein 6.5 gm/dl Albumin 3.1 gm/dl Bedside Glucose 132 mg/dl HISTORY: Pain. Radicular pain. flank pain TECHNIQUE: Multiaxial CT images of the lumbar spine were performed and reformatted in the sagittal and coronal plane without the use of contrast. COMPARISON: 05/07/2015 FINDINGS: Pre-existing unchanged compression fracture at L3 with an associated vertebroplasty. Slight posterior displacement of the posterior margin of the L3 vertebral body unchanged from the prior exam. Slight compression superior endplate L5 considered old. Moderate multifactorial narrowing of the spinal canal at L2-L3 and L3-L4. This is unchanged. Degenerative changes of the remaining components of the lumbar spine are present. No change overall compared to the prior study. IMPRESSION: Chronic and postoperative change. No change in the prior study. Old compression deformity L3 with a slight old concave deformity superior endplate L5. Electronically signed by: Lionel Alexadner M.D. 08/31/2016 12:22 PM Assessment and Plan 55 yo diabetic female with what appears to be acute UT with markedly elevated troponin. Leukocytosis likely from above, but may also reflect in part recent MRSA skin infection. Consider transition of patient from daptomycin to doxycycline. Will discuss with all involved.
[2016-09-02] MEDS ORDERED: HEPARIN SOD (PORCINE) 1000 UNIT/ML 10 ML VIAL ONE (10:34)
[2016-09-02] MEDS ORDERED: FENTANYL CITRATE INJ 50 MCG/1 ML 2 ML VIAL ONE ×2 (10:34→11:18)
[2016-09-02] MEDS ORDERED: NiCARDipine HCL INJ 2.5 MG/ML 10 ML AMP ONE (10:34)
[2016-09-02] MEDS ORDERED: MIDAZOLAM HCL 1 MG/ML 2ML VIAL ONE ×2 (10:34→11:18)
[2016-09-02] MEDS ORDERED: NITROGLYCERIN/D5W 100MCG/ML 20ML SYR ONE (10:35)
--- NOTE | 2016-09-02 11:04 | Family Medicine Progress Note ---
Progress Note Date of Service September 02, 2016. Subjective Pt evaluation today including: conversation w/ patient, physical exam, chart review, lab review Constitutional: No chills, No fever Eyes: No worsening of vision ENT: No hearing loss Respiratory: No cough, No shortness of breath Cardiovascular: + chest pain Medications Current Inpatient Medications Medications (Trade) Dose Ordered Sig/Sid Route Start Time Stop Time Status Last Admin Dose Admin Acetaminophen (Tylenol Tab) 650 mg Q4H PRN PO 08/30/16 06:15 09/29/16 06:14 08/31/16 20:24 650 MG Zolpidem Tartrate (Ambien Tab) 5 mg HSZ PRN PO 08/30/16 06:15 09/29/16 06:14 09/01/16 23:35 5 MG Nitroglycerin (Nitrostat Tab) 0.4 mg UD PRN SL 08/30/16 06:15 09/29/16 06:14 09/01/16 22:16 0.4 MG Ondansetron HCl (Zofran Inj) 4 mg Q6H PRN IV 08/30/16 06:15 09/29/16 06:14 08/31/16 12:17 4 MG Insulin Aspart (novoLOG ASPART) SLIDING SCALE If C... ACHS SC 08/30/16 07:00 09/29/16 06:59 09/01/16 18:27 4 UNITS Glucose (Glucose 40% Gel) UD PRN PO 08/30/16 06:15 09/29/16 06:14 Glucose (Glucose Chew Tab) 1 tabs UD PRN PO 08/30/16 06:15 09/29/16 06:14 Dextrose (Dextrose 50% 50ML Syringe) 50 ml UD PRN IV 08/30/16 06:15 09/29/16 06:14 Glucagon (Glucagon Inj) 1 mg UD PRN SQ 08/30/16 06:15 09/29/16 06:14 Acetaminophen/ Butalbital/ Caffeine (Fioricet Tab) 1 tab DAILY PRN PO 08/30/16 06:15 09/29/16 06:14 09/01/16 23:43 1 TAB Fluoxetine HCl (Prozac Cap) 40 mg HS PO 08/30/16 21:00 09/29/16 20:59 09/01/16 19:27 40 MG Gabapentin (Neurontin Tab) 800 mg TID PO 08/30/16 09:00 09/29/16 08:59 09/02/16 08:53 800 MG Levothyroxine Sodium (Synthroid Tab) 150 mcg DAILYBB PO 08/30/16 08:00 09/29/16 07:59 09/02/16 04:54 150 MCG Loratadine (Claritin Tab) 10 mg DAILY PRN PO 08/30/16 06:15 09/29/16 06:14 09/02/16 08:55 10 MG Metoprolol Tartrate (Lopressor Tab) 50 mg BID PO 08/30/16 09:00 09/29/16 08:59 09/02/16 08:53 50 MG Montelukast Sodium (Singulair Tab) 10 mg QPM PO 08/30/16 21:00 09/29/16 20:59 09/01/16 19:28 10 MG Oxycodone HCl (Roxicodone Immediate Rel Tab) 20 mg Q6H PO 08/30/16 08:00 09/13/16 07:59 09/02/16 09:02 20 MG Pantoprazole Sodium (Protonix Tab) 40 mg QAM PO 08/30/16 09:00 09/29/16 08:59 09/02/16 08:52 40 MG Clopidogrel Bisulfate (plAVix TAB) 75 mg QAM PO 08/30/16 09:00 09/29/16 08:59 09/02/16 08:52 75 MG Ipratropium [place] (Atrovent 0.02% 0.5MG/2.5ML Neb) 0.5 mg Q2R PRN INH 08/30/16 07:00 09/29/16 06:59 Levalbuterol 1.25 mg 1.25 mg Q2R PRN INH 08/30/16 07:00 09/29/16 06:59 Daptomycin/Sodium Chloride (Cubicin IV/Nss 50ml) 62 ml @ 100 mls/hr DAILY@0600 IV 08/31/16 06:00 09/09/16 05:59 09/02/16 04:54 100 MLS/HR Nitroglycerin (Nitroglycerin 2% Oint) 1 inch Q6 EXT 08/30/16 12:00 09/29/16 11:59 09/01/16 22:19 1 INCH Heparin Sodium (Porcine) 5 ml 5 ml PRN PRN FLUSH 08/30/16 09:00 09/29/16 08:59 09/01/16 10:18 5 ML Heparin Sodium/ Dextrose (Heparin 25,000 Unit/500ml D5W) 500 ml @ 32 mls/hr [id number] PRN IV 08/30/16 13:15 09/29/16 13:14 09/01/16 20:43 32 MLS/HR Daptomycin (Consult) 1 ea UD PRN N/A 08/30/16 15:45 09/29/16 15:44 Rosuvastatin Calcium (Crestor Tab) 20 mg QAM PO 08/31/16 10:15 09/30/16 10:14 09/02/16 08:53 20 MG Fluticasone Propionate (Flovent Hfa 220MCG Inhaler) 1 puffs BID INH 09/01/16 09:00 10/01/16 08:59 09/02/16 09:02 1 PUFFS Nystatin (Mycostatin Powder) 1 appln BID EXT 09/01/16 09:00 10/01/16 08:59 09/02/16 08:54 1 APPLN Lorazepam 0.5 mg 0.5 mg DAILY PRN PO 09/01/16 09:15 10/01/16 09:14 09/01/16 10:18 0.5 MG Sodium Chloride (Nss 1000ml) 1,000 ml @ 75 mls/hr [id number] IV 09/02/16 00:00 09/02/16 13:19 09/01/16 22:23 75 MLS/HR Fluticasone Propionate (Flonase Nasal [place]) 2 sprays BID NA 09/01/16 21:00 10/01/16 20:59 09/02/16 08:54 2 SPRAYS Morphine Sulfate (MoRPHine SULFATE INJ) 2 mg Q2H PRN IV 09/01/16 20:45 09/15/16 20:44 09/01/16 20:33 2 MG Topiramate (Topamax Tab) 50 mg BID PO 09/01/16 21:00 10/01/16 20:59 Objective Vital Signs Date Time Temp Pulse Resp B/P Pulse Ox O2 Delivery O2 Flow Rate FiO2 09/02/16 08:03 36.8 72 16 120/81 91 Room Air 09/02/16 08:00 Room Air 09/02/16 04:04 37.2 70 20 100/61 91 Room Air 09/02/16 04:00 Room Air 09/02/16 00:01 Room Air 09/01/16 23:34 37.3 76 20 121/61 94 Room Air 09/01/16 22:52 100 20 139/82 94 Room Air 09/01/16 22:23 84 113/55 95 Room Air 09/01/16 22:08 82 16 103/73 94 Room Air 09/01/16 20:00 Room Air 09/01/16 19:49 37.1 90 18 120/72 94 Room Air 09/01/16 16:05 Room Air 09/01/16 15:56 36.9 83 18 127/89 94 Room Air 09/01/16 12:00 Room Air 09/01/16 11:59 36.7 76 16 99/57 91 Room Air Laboratory Results 09/02/16 05:20 Red Blood Count 3.96, Mean Corpuscular Volume 90.2, Mean Corpuscular Hemoglobin 28.8, Mean Corpuscular Hemoglobin Concent 31.9, Mean Platelet Volume 10.2, Neutrophils (%) (Auto) 45.6, Lymphocytes (%) (Auto) 33.9, Monocytes (%) (Auto) 11.2, Eosinophils (%) (Auto) 8.3, Basophils (%) (Auto) 0.8, Neutrophils # (Auto ) 5.37, Lymphocytes # (Auto) 3.99, Monocytes # (Auto) 1.32, Eosinophils # (Auto ) 0.98, Basophils # (Auto) 0.09 09/02/16 05:20 Test 09/02/16 05:20 09/02/16 06:39 White Blood Count 11.77 K/uL (4.8-10.8) Red Blood Count 3.96 M/uL (4.2-5.4) Hemoglobin 11.4 g/dL (12.0-16.0) Hematocrit 35.7 % (37-47) Mean Corpuscular Volume 90.2 fL (80-100) Mean Corpuscular Hemoglobin 28.8 pg (25-34) Mean Corpuscular Hemoglobin Concent 31.9 g/dl (32-36) Platelet Count 377 K/uL (130-400) Mean Platelet Volume 10.2 fL (7.4-10.4) Neutrophils (%) (Auto) 45.6 % Lymphocytes (%) (Auto) 33.9 % Monocytes (%) (Auto) 11.2 % Eosinophils (%) (Auto) 8.3 % Basophils (%) (Auto) 0.8 % Neutrophils # (Auto) 5.37 K/uL (1.4-6.5) Lymphocytes # (Auto) 3.99 K/uL (1.2-3.4) Monocytes # (Auto) 1.32 K/uL (0.11-0.59) Eosinophils # (Auto) 0.98 K/uL (0-0.5) Basophils # (Auto) 0.09 K/uL (0-0.2) RDW Standard Deviation 47.1 fL (36.4-46.3) RDW Coefficient of Variation 14.3 % (11.5-14.5) Immature Granulocyte % (Auto) 0.2 % Immature Granulocyte # (Auto) 0.02 K/uL (0.00-0.02) Prothrombin Time 10.6 SECONDS (9.0-12.0) Prothromb Time International Ratio 1.0 (0.9-1.1) Activated Partial Thromboplast Time 48.1 SECONDS (21.0-31.0) Partial Thromboplastin Ratio 1.9 Anion Gap 7.0 mmol/L (3-11) Est Creatinine Clear Calc Drug Dose 97.2 ml/min Estimated GFR () 107.7 Estimated GFR (Non- 93.0 BUN/Creatinine Ratio 17.0 (10-20) Calcium Level 8.7 mg/dl (8.5-10.1) Magnesium Level 2.3 mg/dl (1.8-2.4) Total Bilirubin 0.3 mg/dl (0.2-1) Direct Bilirubin 0.1 mg/dl (0-0.2) Aspartate Amino Transf (AST/SGOT) 30 U/L (15-37) Alanine Aminotransferase (ALT/SGPT) 24 U/L (12-78) Alkaline Phosphatase 97 U/L (45-117) Total Protein 6.5 gm/dl (6.4-8.2) Albumin 3.1 gm/dl (3.4-5.0) Bedside Glucose 132 mg/dl (70-90)
--- NOTE | 2016-09-02 11:06 | Procedure Note ---
Pre-Mod Sedation Assessment General Date of Moderate Sedation: September 02, 2016. Vital Signs: Vital Signs Past 12 Hours Date Time Temp Pulse Resp B/P Pulse Ox O2 Delivery O2 Flow Rate FiO2 09/02/16 08:03 36.8 72 16 120/81 91 Room Air 09/02/16 08:00 Room Air 09/02/16 04:04 37.2 70 20 100/61 91 Room Air 09/02/16 04:00 Room Air 09/02/16 00:01 Room Air 09/01/16 23:34 37.3 76 20 121/61 94 Room Air Review Cardiovascular: regular rate, rhythm, no edema Abdomen: normal bowel sounds, non tender, soft Lungs: chest non-tender, lungs clear, normal breath sounds Airway Class: II Pre-Sedation Airway Assessment Oral Cavity: WNL Able to Visualize Vocal Cords: No Short Thick Neck: Yes Hx of Sleep Apnea: No Smoking Status: Never Smoker Mallampati Classification: Class III ASA Classification: Class III Procedure Planning Contraindications-for Mod Sed: None Yes Notes The planned sedation has been discussed with the patient and consent obtained. I have identified the patient, determined the appropriateness of sedation and have assessed the patient immediately prior to the procedure. All medicine(s) and interventions are by my order.
--- NOTE | 2016-09-02 11:41 | Procedure Note ---
Post-Mod Sedation Assessment General Date of Moderate Sedation September 02, 2016. Vital Signs: Vital Signs Past 12 Hours Date Time Temp Pulse Resp B/P Pulse Ox O2 Delivery O2 Flow Rate FiO2 09/02/16 08:03 36.8 72 16 120/81 91 Room Air 09/02/16 08:00 Room Air 09/02/16 04:04 37.2 70 20 100/61 91 Room Air 09/02/16 04:00 Room Air 09/02/16 00:01 Room Air Review - Discharge Criteria Vital Signs Stable: Yes Alert/Oriented/Conversant: Yes Returned to Baseline Mental St: Yes Nausea Absent/Minimal: Yes Pain/Discomfort/Absent/Minimal: Yes Normal/Baseline Respirations: Yes Active Bleeding?: No Pt Received D/C Instructions: N/A Prescriptions Given: None Specific Proced. D/C Criteria Distal Pulses Present (Cardiac: Yes Groin site assessed-Card Cath: N/A Voided Prior To Discharge: N/A Discharged Patients Adult Escort/Transportation: Yes
--- NOTE | 2016-09-02 12:55 | Cardiac Catheterization ---
Procedure Note Procedure Date September 02, 2016. Pre-Procedure Diagnosis Non STEMI AUC Score 8 Post-Procedure Diagnosis Mild CAD Procedure(s) Performed Coronary Angiography, Left Heart Cath, LV Angiography Screening Tech Dr. Dimas Assembler Billiard Table(s) Leeanne Estimated Blood Loss 15 Medication(s) Fentanyl, Heparin, Nicardipine, Nitroglycerin, Versed, Lidocaine 1% Summary of Findings Indication: NSTEMI Access: 6Fr Slender Right Radial Artery Catheters: [place], Pigtail Findings: LM - Luminal irregularities LAD - Mild 20% proximal, mid segment disease; tapers distally as wraps around apex Circumflex - Non-dominant, luminal irregularities. RCA - Dominant, mild 20-30% focal stenosis in early-mid RCA. Luminal irregularities in distal vessel and PDA. LVEDP - 14 Arterial Closure: TR Band Summary: 1. Mild nonobstructive coronary artery disease - 20-30% early-mid RCA stenosis 2. Normal intracardiac filling pressure 3. Normal LV systolic function, LVEF 55% Recommendations: Suspect etiology of troponin elevation is coronary vasospasm vs stress-induced cardiomyopathy. Continue ASA/Clopidogrel for 1 year. Continued ASCVD risk factor modification statin and current antihypertensives. Hemodynamics Rest Ao: 112/65/86 Final Ao: 108/68/85 LV: 114/14 Recommendations Medical therapy and/or Counseling Specimens None Radiation Exposure (mGy) 1181 Contrast (mls) 95 Visi Fluids (cc crystalloids) 65 Drains None Anesthesia Moderate (11:12 - 11:36) Procedural Complication(s) None Disposition PCU ACC Data Cardiac Status Clinical evaluation leading to the procedure CAD Presntation: Non STEMI Anginal Classification: CCS III Heart Failure: No, NYHA Class: CCS I Cardiogenic Shock w/in 24Hrs: No Cardiac Arrest w/in 24Hrs: No Imaging studies past 6 months: Yes Stress studies past 6 months: No Standard Exercise Stress Test: No Stress Echocardiogram: No Stress Testing w/SPECT MPI: No Cardiac CTA: No Coronary Anatomy Dominant: Right Left Main (% Stenosis): Normal LAD (% Stenosis): Normal Circumflex (% Stenosis): Normal RCA (% Stenosis): Mid (20-30%) Diagnostic Physician's Name: Dionicio Dimas MD Status: Elective Closure Device Percutaneous Entry Location: Radial Closure Device: Radial Band Recommendations: Medical therapy and/or Counseling Intraprocedure Events Significant Dissection: No Perforation: No
[2016-09-02] MEDS: MoRPHine SULFATE 2 MG/ML CARP IV PRN (14:08)
[2016-09-02] MEDS ORDERED: ROSU20TA PO (15:30)
[2016-09-02] MEDS ORDERED: PLV75 PO (15:30)
[2016-09-02] MEDS ORDERED: METO25TA56 PO (15:30)
[2016-09-02] MEDS ORDERED: DXY100 PO (15:30)
--- NOTE | 2016-09-02 15:38 | Discharge Instructions ---
Discharge Instructions Date of Service September 02, 2016. Admission Reason for Admission: Acs, Acute Renal Failure Discharge Discharge Diagnosis / Problem: NSTEMI Discharge Goals Goal(s): Decrease discomfort, Improve function Activity Recommendations Activity Limitations: resume your previous activity . Instructions / Follow-Up Instructions / Follow-Up You were admitted with concerns of a heart attack and underwent a cardiac catheterization which did not reveal any significant blockage and did not require any stenting. Recommendations: Coronary artery disease - Continue to use Plavix 75 mg daily for an year - Continue to use Crestor 20 mg daily - Continue to use metoprolol 50 mg twice daily - Continue balanced / heart healthy diet MRSA infection: Continue to use doxycycline 100 mg twice daily for 10 days Type 2 diabetes: - Continue by mouth pioglitazone as recommended Hypothyroidism - continue levothyroxine sodium at 150 g by mouth daily. Depression/anxiety - continue amitriptyline 50 mg by mouth at bedtime and fluoxetine 40 mg by mouth at bedtime. Chronic pain syndrome and back pain - continue Oxycodone 20 mg by mouth 4 times daily -if pain not improving, please follow up with your Pain Management MD GERD - 40 mg Protonix daily Peripheral neuropathy - Gabapentin 800 mg 3 times a day Asthma/allergy : - continue Singulair 10 mg every morning. -Continue Advair, levalbuterol Please follow-up with your PCP in 2-3 days Please follow up with Dr. Gamboa in about 10 days Home Care: * Take your medications exactly as directed. Don't skip doses. * Remember that recovery after a heart attack takes time. Plan to rest for at lease 4-8 weeks while you recover. Then return to normal activity when your doctor says it's okay. * Ask your doctor about joining a heart rehabilitation program. * Tell your doctor if you are feeling depressed. Feelings of sadness are common after a heart attack, but it is important that you speak to someone if you are feeling overwhelmed by these feelings. * If you are having chest pain, call 911 for an ambulance. Do NOT drive yourself to the hospital. * Ask your family members to learn CPR. * Learn to take your own blood pressure and pulse. Keep a record of your results. Ask your doctor when you should seek emergency medical attention. He or she will tell you which blood pressure reading is dangerous. Lifestyle Changes: * Maintain a healthy weight. Get help to lose any extra pounds. * Cut back on salt. * Limit canned, dried, packaged, and fast foods. * Don't add salt to your food. * Season foods with herbs instead of salt when you cook. * Break the smoking habit. Enroll in a stop-smoking program to improve your chances of success. * Limit fatty foods. * Check your lipid levels regularly. (Your doctor can show you how to do this.) * Build up your activity according to your doctor's recommendation. * Ask your doctor when it's okay to resume sexual activity. * Tell your doctor about any erectile dysfunction (ED) medication you are taking. Some ED medications are not safe if you take certain heart medications. * Try to manage stress. Follow Up: It is important for you to keep your follow up appointments with your medical provider. Current Hospital Diet Patient's current hospital diet: AHA Diet (Heart Healthy), Diabetes Type 2 Diet Discharge Diet Recommended Diet: AHA Diet (Heart Healthy), Low Sodium Diet (2gm Na) Pending Studies Studies pending at discharge: no Laboratory Results Lipid Panel Test 08/31/16 06:00 Range/Units Triglycerides Level 302 H 0-150 mg/dl Cholesterol Level 192 0-200 mg/dl HDL Cholesterol 34 mg/dl Cholesterol/HDL Ratio 5.6 LDL Cholesterol, Calculated 98 mg/dl Medical Emergencies . Who to Call and When: Medical Emergencies: If at any time you feel your situation is an emergency, please call 911 immediately. Call 911 immediately or go to your nearest Emergency Room if you experience any of the following: Warning Signs and Symptoms of a Heart Attack * Chest pain that is not relieved by medication * Shortness of breath . Non-Emergent Contact Non-Emergency issues call your: Primary Care Provider . . "Provider Documentation" section prepared by Marissa Montero. . Thermodynamicist Recommendations Thermodynamicist Recommendations: Clopidogrel for 1 year. Continued ASCVD risk factor modification statin and current antihypertensives. AMI Core Measures Reason no ASA as I/P: Drug Allergy Reason no ASA at D/C: Drug Allergy Reason no statin as I/P: Treatment provided - N/A Reason no statin at D/C: Treatment provided - N/A VTE Core Measure Inpt VTE Proph given/why not?: Other Anticoagulation (heparin), SCD's Resident Tracking Resident Involvement: Resident Care Provided Care Provided: Adult Hospital Medicine
[2016-09-02] MEDS ORDERED: NTRSLP4 SL (15:40)
--- NOTE | 2016-09-02 16:06 | Infectious Disease Progress Nt ---
Progress Note Date of Service September 02, 2016. Subjective Pt evaluation today including: conversation w/ patient, physical exam, chart review, lab review, review of studies, conversation w/ animal nutrition consultant, review of inpatient medication list Patient now status post cardiac catheterization with only minimal coronary artery disease found. She remains afebrile, no new complaints. As discussed, patient transition to oral doxycycline therapy. All Other Systems: Reviewed and Negative Medications Current Inpatient Medications Medications (Trade) Dose Ordered Sig/Sid Route Start Time Stop Time Status Last Admin Dose Admin Acetaminophen (Tylenol Tab) 650 mg Q4H PRN PO 08/30/16 06:15 09/29/16 06:14 08/31/16 20:24 650 MG Zolpidem Tartrate (Ambien Tab) 5 mg HSZ PRN PO 08/30/16 06:15 09/29/16 06:14 09/01/16 23:35 5 MG Nitroglycerin (Nitrostat Tab) 0.4 mg UD PRN SL 08/30/16 06:15 09/29/16 06:14 09/01/16 22:16 0.4 MG Ondansetron HCl (Zofran Inj) 4 mg Q6H PRN IV 08/30/16 06:15 09/29/16 06:14 08/31/16 12:17 4 MG Insulin Aspart (novoLOG ASPART) SLIDING SCALE If C... ACHS SC 08/30/16 07:00 09/29/16 06:59 09/01/16 18:27 4 UNITS Glucose (Glucose 40% Gel) UD PRN PO 08/30/16 06:15 09/29/16 06:14 Glucose (Glucose Chew Tab) 1 tabs UD PRN PO 08/30/16 06:15 09/29/16 06:14 Dextrose (Dextrose 50% 50ML Syringe) 50 ml UD PRN IV 08/30/16 06:15 09/29/16 06:14 Glucagon (Glucagon Inj) 1 mg UD PRN SQ 08/30/16 06:15 09/29/16 06:14 Acetaminophen/ Butalbital/ Caffeine (Fioricet Tab) 1 tab DAILY PRN PO 08/30/16 06:15 09/29/16 06:14 09/01/16 23:43 1 TAB Fluoxetine HCl (Prozac Cap) 40 mg HS PO 08/30/16 21:00 09/29/16 20:59 09/01/16 19:27 40 MG Gabapentin (Neurontin Tab) 800 mg TID PO 08/30/16 09:00 09/29/16 08:59 09/02/16 15:54 800 MG Levothyroxine Sodium (Synthroid Tab) 150 mcg DAILYBB PO 08/30/16 08:00 09/29/16 07:59 09/02/16 04:54 150 MCG Loratadine (Claritin Tab) 10 mg DAILY PRN PO 08/30/16 06:15 09/29/16 06:14 09/02/16 08:55 10 MG Metoprolol Tartrate (Lopressor Tab) 50 mg BID PO 08/30/16 09:00 09/29/16 08:59 09/02/16 08:53 50 MG Montelukast Sodium (Singulair Tab) 10 mg QPM PO 08/30/16 21:00 09/29/16 20:59 09/01/16 19:28 10 MG Oxycodone HCl (Roxicodone Immediate Rel Tab) 20 mg Q6H PO 08/30/16 08:00 09/13/16 07:59 09/02/16 15:55 20 MG Pantoprazole Sodium (Protonix Tab) 40 mg QAM PO 08/30/16 09:00 09/29/16 08:59 09/02/16 08:52 40 MG Clopidogrel Bisulfate (plAVix TAB) 75 mg QAM PO 08/30/16 09:00 09/29/16 08:59 09/02/16 08:52 75 MG Ipratropium [place] (Atrovent 0.02% 0.5MG/2.5ML Neb) 0.5 mg Q2R PRN INH 08/30/16 07:00 09/29/16 06:59 Levalbuterol (Xopenex 1.25MG/ 0.5ML Neb) 1.25 mg Q2R PRN INH 08/30/16 07:00 09/29/16 06:59 Nitroglycerin (Nitroglycerin 2% Oint) 1 inch Q6 EXT 08/30/16 12:00 09/29/16 11:59 09/01/16 22:19 1 INCH Heparin Sodium (Porcine) 5 ml 5 ml PRN PRN FLUSH 08/30/16 09:00 09/29/16 08:59 09/01/16 10:18 5 ML Heparin Sodium/ Dextrose (Heparin 25,000 Unit/500ml D5W) 500 ml @ 32 mls/hr [id number] PRN IV 08/30/16 13:15 09/29/16 13:14 09/01/16 20:43 32 MLS/HR Rosuvastatin Calcium (Crestor Tab) 20 mg QAM PO 08/31/16 10:15 09/30/16 10:14 09/02/16 08:53 20 MG Fluticasone Propionate (Flovent Hfa 220MCG Inhaler) 1 puffs BID INH 09/01/16 09:00 10/01/16 08:59 09/02/16 09:02 1 PUFFS Nystatin (Mycostatin Powder) 1 appln BID EXT 09/01/16 09:00 10/01/16 08:59 09/02/16 08:54 1 APPLN Lorazepam (Ativan Tab) 0.5 mg DAILY PRN PO 09/01/16 09:15 10/01/16 09:14 09/01/16 10:18 0.5 MG Fluticasone Propionate (Flonase Nasal [place]) 2 sprays BID NA 09/01/16 21:00 10/01/16 20:59 09/02/16 08:54 2 SPRAYS Morphine Sulfate (MoRPHine SULFATE INJ) 2 mg Q2H PRN IV 09/01/16 20:45 09/15/16 20:44 09/02/16 14:08 2 MG Topiramate (Topamax Tab) 50 mg BID PO 09/01/16 21:00 10/01/16 20:59 Doxycycline Hyclate (Vibramycin Cap) 100 mg BID PO 09/02/16 21:00 09/12/16 20:59 Objective Vital Signs Date Time Temp Pulse Resp B/P Pulse Ox O2 Delivery O2 Flow Rate FiO2 09/02/16 12:30 Room Air 09/02/16 11:51 62 18 117/64 96 Room Air 09/02/16 11:46 65 18 118/58 96 Room Air 09/02/16 11:41 67 18 111/54 96 Room Air 09/02/16 11:36 68 18 110/54 95 Nasal Cannula 3 09/02/16 08:03 36.8 72 16 120/81 91 Room Air 09/02/16 08:00 Room Air 09/02/16 08:00 62 18 117/64 96 Room Air 09/02/16 04:04 37.2 70 20 100/61 91 Room Air 09/02/16 04:00 Room Air 09/02/16 00:01 Room Air 09/01/16 23:34 37.3 76 20 121/61 94 Room Air 09/01/16 22:52 100 20 139/82 94 Room Air 09/01/16 22:23 84 113/55 95 Room Air 09/01/16 22:08 82 16 103/73 94 Room Air 09/01/16 20:00 Room Air 09/01/16 19:49 37.1 90 18 120/72 94 Room Air 09/01/16 16:05 Room Air Physical Exam General Appearance: WD/WN, no apparent distress Eyes: normal inspection, sclerae normal ENT: normal ENT inspection, pharynx normal Neck: supple, no adenopathy, trachea midline Respiratory/Chest: chest non-tender, lungs clear, normal breath sounds, no respiratory distress Cardiovascular: regular rate, rhythm, no gallop, no murmur Abdomen: normal bowel sounds, non tender, soft, no organomegaly Extremities: non-tender, no calf tenderness Neurologic/Psychiatric: alert, oriented x 3 Skin: normal color, no rash, + pertinent finding (Area of erythema right leg improving) Lymphatic: no adenopathy Laboratory Results Last 24 Hours Test 09/01/16 16:13 09/01/16 20:26 09/02/16 05:20 09/02/16 06:39 Bedside Glucose 122 mg/dl 95 mg/dl 132 mg/dl White Blood Count 11.77 K/uL Red Blood Count 3.96 M/uL Hemoglobin 11.4 g/dL Hematocrit 35.7 % Mean Corpuscular Volume 90.2 fL Mean Corpuscular Hemoglobin 28.8 pg Mean Corpuscular Hemoglobin Concent 31.9 g/dl Platelet Count 377 K/uL Mean Platelet Volume 10.2 fL Neutrophils (%) (Auto) 45.6 % Lymphocytes (%) (Auto) 33.9 % Monocytes (%) (Auto) 11.2 % Eosinophils (%) (Auto) 8.3 % Basophils (%) (Auto) 0.8 % Neutrophils # (Auto) 5.37 K/uL Lymphocytes # (Auto) 3.99 K/uL Monocytes # (Auto) 1.32 K/uL Eosinophils # (Auto) 0.98 K/uL Basophils # (Auto) 0.09 K/uL RDW Standard Deviation 47.1 fL RDW Coefficient of Variation 14.3 % Immature Granulocyte % (Auto) 0.2 % Immature Granulocyte # (Auto) 0.02 K/uL Prothrombin Time 10.6 SECONDS Prothromb Time International Ratio 1.0 Activated Partial Thromboplast Time 48.1 SECONDS Partial Thromboplastin Ratio 1.9 Sodium Level 140 mmol/L Potassium Level 4.2 mmol/L Chloride Level 104 mmol/L Carbon Dioxide Level 29 mmol/L Anion Gap 7.0 mmol/L Blood Urea Nitrogen 12 mg/dl Creatinine 0.72 mg/dl Est Creatinine Clear Calc Drug Dose 97.2 ml/min Estimated GFR () 107.7 Estimated GFR (Non- 93.0 BUN/Creatinine Ratio 17.0 Random Glucose 134 mg/dl Calcium Level 8.7 mg/dl Magnesium Level 2.3 mg/dl Total Bilirubin 0.3 mg/dl Direct Bilirubin 0.1 mg/dl Aspartate Amino Transf (AST/SGOT) 30 U/L Alanine Aminotransferase (ALT/SGPT) 24 U/L Alkaline Phosphatase 97 U/L Total Protein 6.5 gm/dl Albumin 3.1 gm/dl Assessment and Plan 55 yo diabetic female with what appears to be acute cardiac event with elevated troponin, with leukocytosis now improving. Would give 10 days of doxycycline for her MRSA skin infection, see no need for follow-up with ID unless infection worsens or new problems arise.
--- NOTE | 2016-09-02 18:59 | Discharge Summary ---
Discharge Summary Date of Service September 02, 2016. (Marissa Montero MD) Discharge Summary Admission Date: August 30, 2016 at 06:12 Discharge Date: September 02, 2016 Discharge Disposition: Home Principal Diagnosis: NSTEMI Problems/Secondary Diagnoses: (1) Anxiety State Nos Status: Chronic (2) Asthma Status: Chronic (3) Degenerative arthritis of knee Status: Chronic (4) Depressive Disorder Nec Status: Chronic (5) Diab Niyah Wo Compl, Type Ii Or Unspec Type, Not Uncntrld Status: Chronic (6) Esophageal Reflux Status: Chronic (7) Hx-Venous Thrombosis&Embolism Status: Chronic (8) Hyperlipidemia Nec/Nos Status: Chronic (9) Hypertension Status: Chronic (10) Hypothyroidism Nos Status: Chronic (11) Lumbar Disc Displacement Status: Chronic (12) Lumbosacral Neuritis Nos Status: Chronic (13) Morbid Obesity Status: Chronic (14) Osteoporosis Nos Status: Chronic (15) Splenosis Status: Chronic Immunizations: Have You Had Influenza Vaccine: No Influenza Vaccine Date: Jan 07, 2013 History of Tetanus Vaccine?: Unknown History of Pneumococcal: Unknown Pneumococcal Date: Jan 08, 2012 History of Hepatitis B Vaccine: Unknown Procedures: Cardiac cath Consultations: Cardiology (Marissa Montero MD) Discharge Date: September 05, 2016 Problems/Secondary Diagnoses: Acute kidney injury Type 2 diabetes Hypertension Hyperlipidemia Hypothyroidism GERD Chronic pain syndrome Neuropathy Asthma Abdominal pain secondary to constipation Constipation Right leg wound infected with MRSA Chronic lower back pain, degenerative disc disease lumbar spine with old compression fractures Small bilateral renal cysts Depression/anxiety Asthma/allergy (Marina Gallardo MD) Medication Reconciliation New Medications: Rosuvastatin Calcium (Crestor) 20 Mg Tab 1 TAB PO DAILY for 30 Days, #30 TAB 5 Refills Clopidogrel Bisulfate (Clopidogrel) 75 Mg Tab 75 MG PO QAM for 60 Days, #60 TAB 3 Refills Doxycycline Hyclate (Doxycycline Hyclate) 100 Mg Cap 100 MG PO BID for 10 Days, #20 CAP Nitroglycerin (Nitrostat) 0.4 Mg/1 Tab Subl 0.4 MG SL UD PRN for Chest Pain, #30 Changed Medications: Metoprolol Tartrate (Lopressor) (Lopressor) 25 Mg Tab 50 MG PO BID for 30 Days, #120 TAB (Changed from: QPM) Continued Medications: Acetamin/Butalbital/Caffeine (Fioricet) 1 Ea Tab 1 TAB PO UD PRN for Migraine, TAB Acetaminophen-Caffeine (Excedrin Tension Headache) 1 Tab Tab 2 TABS PO Q6H PRN for Headache Albuterol Hfa (Ventolin Hfa) 200 Puffs/02745 Mcg Aers 2 PUFFS INH QID PRN for Wheezing Albuterol Sulf (Albuterol Sulfate) 2.5 Mg/0.5 Ml Nebu 1 DOSE NEB Q4 PRN for Wheezing Amitriptyline Hcl (Amitriptyline Hcl) 50 Mg Tab 50 MG PO HS, TAB Fluoxetine (Prozac) 40 Mg Cap 40 MG PO HS, CAP Fluticasone Prop/Salmeterol (Advair Diskus 500/50 60 Dose) 1 Ea Aerp 1 PUFF INH BID, INHALER Gabapentin (Neurontin) 800 Mg Tab 800 MG PO TID, TAB Levothyroxine Sodium (Synthroid) 150 Mcg Tab 150 MCG PO QAM, TAB Loratadine (Claritin) 10 Mg Tab 10 MG PO DAILY PRN for Allergy Symptoms, TAB Midodrine (Midodrine HCl) Unknown Strength Tab 1 TAB PO UD PRN for Migraine Montelukast Sodium (Singulair) 10 Mg Tab 10 MG PO QAM, TAB Omeprazole (Prilosec) 40 Mg Cap 40 MG PO QAM, CAP Oxycodone Ir (Roxicodone Ir) 5 Mg Tab 20 MG PO Q6H for SCHEDULED, TAB PT Pioglitazone (Actos) 30 Mg Tab 30 MG PO QAM, TAB 3 Refills Topiramate (Topamax) 100 Mg Tab 100 MG PO BID, TAB Discontinued Medications: Metoprolol Tartrate (Lopressor) (Lopressor) 25 Mg Tab 25 MG PO QAM, TAB Discharge Exam Had a bowel movement yesterday and abdominal pain was better Review of Systems: Constitutional: No chills, No fever Eyes: No worsening of vision ENT: No hearing loss Respiratory: No cough, No dyspnea on exertion, No shortness of breath, No sputum Cardiovascular: No chest pain Abdomen: + problem reported (left sided flank pain better with repositioning ), No pain Genitourinary - Female: No dysuria, No urinary frequency Neurologic: No memory loss Psychiatric: No depression symptoms Endocrine: No fatigue Physical Exam: General Appearance: WD/WN, no apparent distress Eyes: normal inspection ENT: normal ENT inspection, hearing grossly normal Neck: supple Respiratory/Chest: chest non-tender, lungs clear, normal breath sounds, no respiratory distress, no accessory muscle use Cardiovascular: regular rate, rhythm, no edema Abdomen / GI: normal bowel sounds, non tender, soft, no organomegaly Extremities: normal inspection, + pertinent finding (old lesion on RLE) Neurologic/Psychiatric: alert, normal mood/affect, oriented x 3 Lymphatic: no adenopathy (Marissa Montero MD) Hospital Course 55-year-old female with a past medical history of type 2 diabetes, attention, hypertension, hyperlipidemia, hypothyroidism, GERD, chronic pain syndrome, neuropathy and asthma presented to the ED with complaints of persistent chest pain that started after midnight yesterday. She was in the ED with a friend yesterday and had develop chest pain and a burning sensation/heaviness in her right arm. She had about 2 episodes of vomiting and to return to the ER to be evaluated for chest pain. She is going to be discharged but complained about abdominal pain and considering a history of hernias and several abdominal surgeries a KUB and CT abdomen and pelvis were ordered which were unremarkable. She complained of constipation and after an aggressive bowel regimen, she had a bowel movement but somewhat relieved her abdominal pain NSTEMI with f/h of CAD s/p cardiac cath: Likely stress induced myopathy versus coronary vasospasm - EKG with no acute ST T wave changes - Initial troponin negative, troponin peaked at 29 - Echo with no WMA - Cardiology was consulted and she was started on heparin drip , The catheterization was delayed due to elevated creatinine. - Due to intolerance to aspirin and NSAIDs ,( breathing difficulties) aspirin has been avoided - She had received a loading dose of Plavix while in the ER which was continued. - Recommended to continue Plavix for an year - Metoprolol dosage has been changed to 50 mg twice daily - Crestor 20 mg -Sublingual nitroglycerin as needed for chest pain -Lisinopril has not been added considering borderline blood pressure Acute kidney injury - Resolved - Creatinine on presentation 2.3 Leukocytosis with h/o MRSA -Recent admission for UTI 07/25- 07/28- pansensitive Escherichia coli - UA- 10-30 wbc's , 1+ bacteria, negative nitrite - Urine culture negative - ID was consulted, was initially on Primaxin and daptomycin which was later transitioned to doxycycline - Doxycycline to be continued for 10 days Flank pain (different from her chronic low back pain) -Lumbar spine CT ordered- Chronic and postoperative change. No change in the prior study. Old compression deformity L3 with a slight old concave deformity superior endplate L5. - Renal ultrasound - Small bilateral renal cysts. Otherwise negative study. No evidence for hydronephrosis Type 2 diabetes: Was initially managed with insulin sliding scale, transitioned to home meds Hypothyroidism - continue levothyroxine sodium at 150 g by mouth daily. Depression/anxiety - continue amitriptyline 50 mg by mouth at bedtime and fluoxetine 40 mg by mouth at bedtime. Chronic pain syndrome - continue OxyContin 20 mg by mouth 4 times daily, and received morphine sulfate 2 mg IV every 30 minutes when necessary. - Continue OxyContin upon discharge GERD - 40 mg Protonix daily Peripheral neuropathy - Gabapentin 800 mg 3 times a day Asthma/allergy : - continue Singulair 10 mg every morning. - Xopenex/Atrovent, Advair Follow-up with PCP in about a week - Follow up with Dr. Gamboa in about 10 days Total Time Spent: Greater than 30 minutes This includes examination of the patient, discharge planning, medication reconciliation, and communication with other providers. (Marissa Montero MD) Discharge Instructions Please refer to the electronic Patient Visit Report (Discharge Instructions) for additional information. (Marissa Montero MD) Follow-Up With PCP in about a week. with Dr. Gamboa in 10 days (Marissa Montero MD) Additional Copies To Norberto Anderson MD; Neo Gamboa, DO Resident Tracking Resident Involvement: Resident Care Provided Care Provided: [facility] (Marissa Montero MD) Reviewed: Pt Seen/Exam by Me (Marina Gallardo MD) History Resident Physician Supervision Note: I interviewed and examined the patient. Discussed with Dr. Montero and agree with findings and plan as documented in the note. Any exceptions or clarifications are listed here: Abdominal pain completely resolved after having all movements. No chest pain. Has been ambulating without difficulty. Stable for discharge home today Tele reviewed and normal NAD, morbidly obese RRR no mgr CTAB no wcr Abdomen: Positive bowel sounds, morbidly obese, large midline laparotomy scar and right lower quadrant open appendectomy scar, no tenderness to palpation MSK: +TTP over lumbar paraspinous muscles, no masses or skin lesions Ext no edema 55 yo female here with chest pain and NSTEMI secondary to stress-induced vs small vessel disease with clean coronary arteries. Previously with delayed discharge due to persistent abdominal pain likely secondary to constipation but given history of multiple abdominal surgeries and ventral hernia repairs, we obtained a CT scan of the abdomen and pelvis to rule out incarcerated hernia- this was negative. Abdominal pain resolved with bowel movements. Stable for discharge -continue on Plavix, metoprolol, statin -Lower back pain-CT abd/pel neg, L-spine CT showed chronic degenerative changes and stenosis plus old compression fxs, could be source of pain plus muscle spasm -recommend f/u with PCP and her Pain Man MD Dr. Beck -Follow up with cardiology, PCP Documented By: Marina Gallardo (Marina Gallardo MD)
[2016-09-02] MEDS: ONDANSETRON INJ 2 MG/ML 2 ML VIAL IV PRN (21:00)
[2016-09-02] MEDS: DOXYCYCLINE HYCLATE 100 MG CAP PO SCH (21:02)
[2016-09-02] MEDS: FLUOXETINE HCL 20 MG CAP PO SCH (21:03)
[2016-09-02] MEDS: MONTELUKAST SOD 10 MG TAB PO SCH (21:03)
--- NOTE | 2016-09-02 22:42 | Family Medicine Progress Note ---
Progress Note Date of Service September 02, 2016. Subjective Pt evaluation today including: conversation w/ patient, physical exam, chart review, lab review Pain: left sided flank pain but is controlled with positional changes Voiding: no voiding problems Doing well today . tolerated catheterization without any complications Constitutional: No chills, No fever Eyes: No worsening of vision ENT: No hearing loss Respiratory: No cough, No sputum Cardiovascular: No chest pain Abdomen: No nausea, No pain Musculoskeletal: + joint pain (back pain which is chronic) Female : + problem reported (flank pain), No dysuria, No hematuria, No urinary frequency Psychiatric: No depression symptoms Heme: No abnormal bleeding/bruising Medications Current Inpatient Medications Medications (Trade) Dose Ordered Sig/Sid Route Start Time Stop Time Status Last Admin Dose Admin Acetaminophen (Tylenol Tab) 650 mg Q4H PRN PO 08/30/16 06:15 09/29/16 06:14 08/31/16 20:24 650 MG Zolpidem Tartrate (Ambien Tab) 5 mg HSZ PRN PO 08/30/16 06:15 09/29/16 06:14 09/01/16 23:35 5 MG Nitroglycerin (Nitrostat Tab) 0.4 mg UD PRN SL 08/30/16 06:15 09/29/16 06:14 09/01/16 22:16 0.4 MG Ondansetron HCl (Zofran Inj) 4 mg Q6H PRN IV 08/30/16 06:15 09/29/16 06:14 09/02/16 21:00 4 MG Insulin Aspart (novoLOG ASPART) SLIDING SCALE If C... ACHS SC 08/30/16 07:00 09/29/16 06:59 09/02/16 17:54 7 UNITS Glucose (Glucose 40% Gel) UD PRN PO 08/30/16 06:15 09/29/16 06:14 Glucose (Glucose Chew Tab) 1 tabs UD PRN PO 08/30/16 06:15 09/29/16 06:14 Dextrose (Dextrose 50% 50ML Syringe) 50 ml UD PRN IV 08/30/16 06:15 09/29/16 06:14 Glucagon (Glucagon Inj) 1 mg UD PRN SQ 08/30/16 06:15 09/29/16 06:14 Acetaminophen/ Butalbital/ Caffeine (Fioricet Tab) 1 tab DAILY PRN PO 08/30/16 06:15 09/29/16 06:14 09/01/16 23:43 1 TAB Fluoxetine HCl (Prozac Cap) 40 mg HS PO 08/30/16 21:00 09/29/16 20:59 09/02/16 21:03 40 MG Gabapentin (Neurontin Tab) 800 mg TID PO 08/30/16 09:00 09/29/16 08:59 09/02/16 21:03 800 MG Levothyroxine Sodium (Synthroid Tab) 150 mcg DAILYBB PO 08/30/16 08:00 09/29/16 07:59 09/02/16 04:54 150 MCG Loratadine (Claritin Tab) 10 mg DAILY PRN PO 08/30/16 06:15 09/29/16 06:14 09/02/16 08:55 10 MG Metoprolol Tartrate (Lopressor Tab) 50 mg BID PO 08/30/16 09:00 09/29/16 08:59 09/02/16 21:04 50 MG Montelukast Sodium (Singulair Tab) 10 mg QPM PO 08/30/16 21:00 09/29/16 20:59 09/02/16 21:03 10 MG Oxycodone HCl (Roxicodone Immediate Rel Tab) 20 mg Q6H PO 08/30/16 08:00 09/13/16 07:59 09/02/16 21:01 20 MG Pantoprazole Sodium (Protonix Tab) 40 mg QAM PO 08/30/16 09:00 09/29/16 08:59 09/02/16 08:52 40 MG Clopidogrel Bisulfate (plAVix TAB) 75 mg QAM PO 08/30/16 09:00 09/29/16 08:59 09/02/16 08:52 75 MG Ipratropium [place] (Atrovent 0.02% 0.5MG/2.5ML Neb) 0.5 mg Q2R PRN INH 08/30/16 07:00 09/29/16 06:59 Levalbuterol (Xopenex 1.25MG/ 0.5ML Neb) 1.25 mg Q2R PRN INH 08/30/16 07:00 6/4/17 06:59 Heparin Sodium (Porcine) (Heparin 10 Unit/ ml 5 ml Flush) 5 ml PRN PRN FLUSH 08/30/16 09:00 09/29/16 08:59 09/01/16 10:18 5 ML Rosuvastatin Calcium (Crestor Tab) 20 mg QAM PO 08/31/16 10:15 09/30/16 10:14 09/02/16 08:53 20 MG Fluticasone Propionate (Flovent Hfa 220MCG Inhaler) 1 puffs BID INH 09/01/16 09:00 10/01/16 08:59 09/02/16 21:01 1 PUFFS Nystatin (Mycostatin Powder) 1 appln BID EXT 09/01/16 09:00 10/01/16 08:59 09/02/16 21:02 1 APPLN Lorazepam (Ativan Tab) 0.5 mg DAILY PRN PO 09/01/16 09:15 10/01/16 09:14 09/01/16 10:18 0.5 MG Fluticasone Propionate (Flonase Nasal [place]) 2 sprays BID NA 09/01/16 21:00 10/01/16 20:59 09/02/16 21:01 2 SPRAYS Doxycycline Hyclate (Vibramycin Cap) 100 mg BID PO 09/02/16 21:00 09/12/16 20:59 09/02/16 21:02 100 MG Objective Vital Signs Date Time Temp Pulse Resp B/P Pulse Ox O2 Delivery O2 Flow Rate FiO2 09/02/16 21:24 36.7 80 18 139/85 90 Room Air 09/02/16 20:00 Room Air 09/02/16 19:05 36.6 73 15 113/74 94 Room Air 09/02/16 16:00 Room Air 09/02/16 15:32 36.9 76 20 87/63 94 Room Air 09/02/16 12:30 Room Air 09/02/16 11:51 62 18 117/64 96 Room Air 09/02/16 11:46 65 18 118/58 96 Room Air 09/02/16 11:41 67 18 111/54 96 Room Air 09/02/16 11:36 68 18 110/54 95 Nasal Cannula 3 09/02/16 08:03 36.8 72 16 120/81 91 Room Air 09/02/16 08:00 Room Air 09/02/16 08:00 62 18 117/64 96 Room Air 09/02/16 04:04 37.2 70 20 100/61 91 Room Air 09/02/16 04:00 Room Air 09/02/16 00:01 Room Air 09/01/16 23:34 37.3 76 20 121/61 94 Room Air 09/01/16 22:52 100 20 139/82 94 Room Air Physical Exam General Appearance: WD/WN, no apparent distress, + obese Eyes: normal inspection ENT: hearing grossly normal Neck: supple Respiratory/Chest: chest non-tender, lungs clear, normal breath sounds, no respiratory distress, no accessory muscle use Cardiovascular: regular rate, rhythm Abdomen: normal bowel sounds, non tender, soft Extremities: normal range of motion Neurologic/Psychiatric: alert, normal mood/affect, oriented x 3 Skin: normal color Laboratory Results 09/02/16 05:20 Red Blood Count 3.96, Mean Corpuscular Volume 90.2, Mean Corpuscular Hemoglobin 28.8, Mean Corpuscular Hemoglobin Concent 31.9, Mean Platelet Volume 10.2, Neutrophils (%) (Auto) 45.6, Lymphocytes (%) (Auto) 33.9, Monocytes (%) (Auto) 11.2, Eosinophils (%) (Auto) 8.3, Basophils (%) (Auto) 0.8, Neutrophils # (Auto ) 5.37, Lymphocytes # (Auto) 3.99, Monocytes # (Auto) 1.32, Eosinophils # (Auto ) 0.98, Basophils # (Auto) 0.09 09/02/16 05:20 Test 09/02/16 05:20 09/02/16 20:25 White Blood Count 11.77 K/uL (4.8-10.8) Red Blood Count 3.96 M/uL (4.2-5.4) Hemoglobin 11.4 g/dL (12.0-16.0) Hematocrit 35.7 % (37-47) Mean Corpuscular Volume 90.2 fL (80-100) Mean Corpuscular Hemoglobin 28.8 pg (25-34) Mean Corpuscular Hemoglobin Concent 31.9 g/dl (32-36) Platelet Count 377 K/uL (130-400) Mean Platelet Volume 10.2 fL (7.4-10.4) Neutrophils (%) (Auto) 45.6 % Lymphocytes (%) (Auto) 33.9 % Monocytes (%) (Auto) 11.2 % Eosinophils (%) (Auto) 8.3 % Basophils (%) (Auto) 0.8 % Neutrophils # (Auto) 5.37 K/uL (1.4-6.5) Lymphocytes # (Auto) 3.99 K/uL (1.2-3.4) Monocytes # (Auto) 1.32 K/uL (0.11-0.59) Eosinophils # (Auto) 0.98 K/uL (0-0.5) Basophils # (Auto) 0.09 K/uL (0-0.2) RDW Standard Deviation 47.1 fL (36.4-46.3) RDW Coefficient of Variation 14.3 % (11.5-14.5) Immature Granulocyte % (Auto) 0.2 % Immature Granulocyte # (Auto) 0.02 K/uL (0.00-0.02) Prothrombin Time 10.6 SECONDS (9.0-12.0) Prothromb Time International Ratio 1.0 (0.9-1.1) Activated Partial Thromboplast Time 48.1 SECONDS (21.0-31.0) Partial Thromboplastin Ratio 1.9 Anion Gap 7.0 mmol/L (3-11) Est Creatinine Clear Calc Drug Dose 97.2 ml/min Estimated GFR () 107.7 Estimated GFR (Non- 93.0 BUN/Creatinine Ratio 17.0 (10-20) Calcium Level 8.7 mg/dl (8.5-10.1) Magnesium Level 2.3 mg/dl (1.8-2.4) Total Bilirubin 0.3 mg/dl (0.2-1) Direct Bilirubin 0.1 mg/dl (0-0.2) Aspartate Amino Transf (AST/SGOT) 30 U/L (15-37) Alanine Aminotransferase (ALT/SGPT) 24 U/L (12-78) Alkaline Phosphatase 97 U/L (45-117) Total Protein 6.5 gm/dl (6.4-8.2) Albumin 3.1 gm/dl (3.4-5.0) Bedside Glucose 132 mg/dl (70-90) Assessment and Plan 55-year-old female with a past medical history of type 2 diabetes, attention, hypertension, hyperlipidemia, hypothyroidism, GERD, chronic pain syndrome, neuropathy and asthma presented to the ED with complaints of persistent chest pain that started after midnight yesterday. She was in the ED with a friend and had develop chest pain and a burning sensation/heaviness in her right arm. She had about 2 episodes of vomiting and to return to the ER to be evaluated for chest pain. NSTEMI with f/h of CAD s/p cardiac cath: Likely stress induced myopathy versus coronary vasospasm - EKG with no acute ST T wave changes - Initial troponin negative, troponin peaked at 29 - Echo with no WMA - Cardiology was consulted and she was started on heparin drip , The catheterization was delayed due to elevated creatinine. - Due to intolerance to aspirin and NSAIDs ,( breathing difficulties) aspirin has been avoided - She had received a loading dose of Plavix while in the ER which was continued. - Recommended to continue Plavix for an year - Metoprolol dosage has been changed to 50 mg twice daily - Crestor 20 mg -Sublingual nitroglycerin as needed for chest pain -Lisinopril has not been added considering borderline blood pressure Acute kidney injury - Resolved - Creatinine on presentation 2.3 Leukocytosis with h/o MRSA -Recent admission for UTI 07/25- 07/28- pansensitive Escherichia coli - UA- 10-30 wbc's , 1+ bacteria, negative nitrite - Urine culture negative - ID was consulted, was initially on Primaxin and daptomycin which was later transitioned to doxycycline - Doxycycline to be continued for 10 days Flank pain (different from her chronic low back pain) -Lumbar spine CT ordered- Chronic and postoperative change. No change in the prior study. Old compression deformity L3 with a slight old concave deformity superior endplate L5. - Renal ultrasound - Small bilateral renal cysts. Otherwise negative study. No evidence for hydronephrosis Type 2 diabetes: Was initially managed with insulin sliding scale, transitioned to home meds Hypothyroidism - continue levothyroxine sodium at 150 g by mouth daily. Depression/anxiety - continue amitriptyline 50 mg by mouth at bedtime and fluoxetine 40 mg by mouth at bedtime. Chronic pain syndrome - continue OxyContin 20 mg by mouth 4 times daily, and received morphine sulfate 2 mg IV every 30 minutes when necessary. - Continue OxyContin upon discharge GERD - 40 mg Protonix daily Peripheral neuropathy - Gabapentin 800 mg 3 times a day Asthma/allergy : - continue Singulair 10 mg every morning. - Xopenex/Atrovent, Advair Full code Dispo: [facility] but she requested that she stay overnight and that she did not feel comfortable going home. DC cancelled and patient transferred to med/surg Resident Tracking Resident Involvement: Resident Care Provided Care Provided: Adult Hospital Medicine Reviewed: Pt Seen/Exam by Me History Resident Physician Supervision Note: I interviewed and examined the patient. Discussed with Dr. Montero and agree with findings and plan as documented in the note. Any exceptions or clarifications are listed here: Pt had cath today and was clean. Cardiology suspects stress-induced LA vs small vessel ischemia. Stable for discharge but pt drove herself here and has been taking morphine for pain, did not want to take a taxi to go home. No more chest pain. Still having lower back pain on both sides of midline, NOT flank pain. Tele reviewed and normal NAD, morbidly obese RRR no mgr CTAB no wcr MSK: +TTP over lumbar paraspinous muscles, no masses or skin lesions Ext no edema 55 yo female here with chest pain and NSTEMI secondary to stress-induced vs small vessel disease with clean coronary arteries. -continue on Plavix, metoprolol, statin -Lower back pain-CT abd/pel neg, L-spine CT showed chronic degenerative changes and stenosis plus old compression fxs, could be source of pain plus muscle spasm -recommend f/u with PCP and her Pain Man MD Dr. Beck -dc to home in the AM Documented By: Marina Gallardo
[2016-09-03] MEDS: OXYCODONE HCL IR 5 MG TAB (IMMEDIATE RELEASE) PO SCH ×4 (02:14→21:02)
[2016-09-03] MEDS: LEVOTHYROXINE 150 MCG TAB PO SCH (06:23)
[2016-09-03 07:13] VITALS: BP 105/67; PULSE 62; TEMP 36.7; O2SAT 92
[2016-09-03] MEDS: FLUTICASONE PROPIONATE NA SPR 16 GM BTL SCH ×2 (07:58→21:03)
[2016-09-03] MEDS: ROSUVASTATIN CALCIUM 5 MG TAB PO SCH (07:59)
[2016-09-03] MEDS: PANTOprazole SOD 40 MG TAB PO SCH (07:59)
[2016-09-03] MEDS: METOPROLOL TARTRATE 50 MG TAB PO SCH ×2 (07:59→21:04)
[2016-09-03] MEDS: DOXYCYCLINE HYCLATE 100 MG CAP PO SCH ×2 (08:00→21:05)
[2016-09-03] MEDS: CLOPIDOGREL BISULFATE 75 MG TAB PO SCH (08:00)
[2016-09-03] MEDS: GABAPENTIN 800 MG TAB PO SCH ×3 (08:00→21:04)
[2016-09-03] MEDS: FLUTICASONE HFA 220 MCG INHALER INH SCH ×2 (08:01→21:03)
[2016-09-03] MEDS: INSULIN ASPART 100 UNITS/ML 3 ML PEN SC SCH ×4 (08:06→21:00)
[2016-09-03] MEDS: NYSTATIN POWDER 15GM BTL EXT SCH ×2 (08:54→21:00)
[2016-09-03] MEDS ORDERED: NURSING VERBAL MED ORDER ONE (14:30)
[2016-09-03] MEDS ORDERED: POLYETHYLENE (MIRALAX) 17 GM PACK PO SCH (14:35)
--- NOTE | 2016-09-03 15:31 | DIAGNOSTIC IMAGING REPORT ---
PA CHEST RADIOGRAPH AND UPRIGHT AND SUPINE AP RADIOGRAPHS OF THE ABDOMEN CLINICAL HISTORY: Abdominal pain, h/o multiple abdominal surgeries, r/o SBO COMPARISON STUDY: Chest radiograph August 30, [address] of the abdomen and pelvis August 31, 2016. FINDINGS: There has been interval placement of a right PICC. Tip is within the SVC. There is no pneumothorax or pleural effusion. There is no consolidation or evidence of pulmonary edema. Postsurgical findings within the anterior abdominal wall are noted. There is no free air. The bowel gas pattern is normal. A 1 level vertebral augmentation is present. IMPRESSION: 1. No free air or evidence of bowel obstruction. 2. No acute cardiopulmonary findings. Electronically signed by: Denis Duggan M.D. 09/03/2016 3:30 PM Dictated Date/Time: 09/03/2016 3:29 PM
[2016-09-03 15:49] VITALS: BP 120/81; PULSE 71; TEMP 37; O2SAT 92
[2016-09-03 16:00] VITALS: O2SAT 92
[2016-09-03] MEDS: MoRPHine SULFATE 2 MG/ML CARP IV PRN ×2 (18:37→22:28)
[2016-09-03] MEDS ORDERED: MINERAL OIL ENEMA 133 ML BTL PR PRN (19:15)
[2016-09-03] MEDS ORDERED: MAGNESIUM HYDROXIDE SUSP 30 ML UDC PO ONE (20:00)
--- NOTE | 2016-09-03 20:31 | Family Medicine Progress Note ---
Progress Note Date of Service September 03, 2016. Subjective Pt evaluation today including: conversation w/ patient, physical exam, chart review, lab review Pain: well-controlled PO Intake: good Voiding: no voiding problems Patient was to be discharged yesterday but she stated that she was not comfortable going home so discharge was canceled and she was transferred to [facility]. She was seen this morning and she had stated that she felt good and well rested. Constitutional: No chills, No fever Eyes: No worsening of vision ENT: No hearing loss Respiratory: No cough Cardiovascular: No chest pain, No orthopnea Abdomen: + constipation, No nausea, No pain, No vomiting Musculoskeletal: No joint pain Female : No dysuria, No urinary frequency Psychiatric: No depression symptoms Heme: No abnormal bleeding/bruising Medications Current Inpatient Medications Medications (Trade) Dose Ordered Sig/Sid Route Start Time Stop Time Status Last Admin Dose Admin Acetaminophen (Tylenol Tab) 650 mg Q4H PRN PO 08/30/16 06:15 09/29/16 06:14 08/31/16 20:24 650 MG Zolpidem Tartrate (Ambien Tab) 5 mg HSZ PRN PO 08/30/16 06:15 09/29/16 06:14 09/01/16 23:35 5 MG Nitroglycerin (Nitrostat Tab) 0.4 mg UD PRN SL 08/30/16 06:15 09/29/16 06:14 09/01/16 22:16 0.4 MG Ondansetron HCl (Zofran Inj) 4 mg Q6H PRN IV 08/30/16 06:15 09/29/16 06:14 09/02/16 21:00 4 MG Insulin Aspart (novoLOG ASPART) SLIDING SCALE If C... ACHS SC 08/30/16 07:00 09/29/16 06:59 09/03/16 17:47 5 UNITS Glucose (Glucose 40% Gel) UD PRN PO 08/30/16 06:15 09/29/16 06:14 Glucose (Glucose Chew Tab) 1 tabs UD PRN PO 08/30/16 06:15 09/29/16 06:14 Dextrose (Dextrose 50% 50ML Syringe) 50 ml UD PRN IV 08/30/16 06:15 09/29/16 06:14 Glucagon (Glucagon Inj) 1 mg UD PRN SQ 08/30/16 06:15 09/29/16 06:14 Acetaminophen/ Butalbital/ Caffeine (Fioricet Tab) 1 tab DAILY PRN PO 08/30/16 06:15 09/29/16 06:14 09/01/16 23:43 1 TAB Fluoxetine HCl (Prozac Cap) 40 mg HS PO 08/30/16 21:00 09/29/16 20:59 09/02/16 21:03 40 MG Gabapentin (Neurontin Tab) 800 mg TID PO 08/30/16 09:00 09/29/16 08:59 09/03/16 14:19 800 MG Levothyroxine Sodium (Synthroid Tab) 150 mcg DAILYBB PO 08/30/16 08:00 09/29/16 07:59 09/03/16 06:23 150 MCG Loratadine (Claritin Tab) 10 mg DAILY PRN PO 08/30/16 06:15 09/29/16 06:14 09/02/16 08:55 10 MG Metoprolol Tartrate (Lopressor Tab) 50 mg BID PO 08/30/16 09:00 09/29/16 08:59 09/03/16 07:59 50 MG Montelukast Sodium (Singulair Tab) 10 mg QPM PO 08/30/16 21:00 09/29/16 20:59 09/02/16 21:03 10 MG Oxycodone HCl (Roxicodone Immediate Rel Tab) 20 mg Q6H PO 08/30/16 08:00 09/13/16 07:59 09/03/16 13:48 20 MG Pantoprazole Sodium (Protonix Tab) 40 mg QAM PO 08/30/16 09:00 09/29/16 08:59 09/03/16 07:59 40 MG Clopidogrel Bisulfate (plAVix TAB) 75 mg QAM PO 08/30/16 09:00 09/29/16 08:59 09/03/16 08:00 75 MG Ipratropium [place] (Atrovent 0.02% 0.5MG/2.5ML Neb) 0.5 mg Q2R PRN INH 08/30/16 07:00 09/29/16 06:59 Levalbuterol (Xopenex 1.25MG/ 0.5ML Neb) 1.25 mg Q2R PRN INH 08/30/16 07:00 09/29/16 06:59 Heparin Sodium (Porcine) (Heparin 10 Unit/ ml 5 ml Flush) 5 ml PRN PRN FLUSH 08/30/16 09:00 09/29/16 08:59 09/03/16 18:37 5 ML Rosuvastatin Calcium (Crestor Tab) 20 mg QAM PO 08/31/16 10:15 09/30/16 10:14 09/03/16 07:59 20 MG Fluticasone Propionate (Flovent Hfa 220MCG Inhaler) 1 puffs BID INH 09/01/16 09:00 10/01/16 08:59 09/03/16 08:01 1 PUFFS Nystatin (Mycostatin Powder) 1 appln BID EXT 09/01/16 09:00 10/01/16 08:59 09/03/16 08:54 1 APPLN Lorazepam (Ativan Tab) 0.5 mg DAILY PRN PO 09/01/16 09:15 10/01/16 09:14 09/01/16 10:18 0.5 MG Fluticasone Propionate (Flonase Nasal [place]) 2 sprays BID NA 09/01/16 21:00 10/01/16 20:59 09/03/16 07:58 2 SPRAYS Doxycycline Hyclate (Vibramycin Cap) 100 mg BID PO 09/02/16 21:00 09/12/16 20:59 09/03/16 08:00 100 MG Morphine Sulfate (MoRPHine SULFATE INJ) 2 mg Q1H PRN IV 09/03/16 15:00 09/17/16 14:59 09/03/16 18:37 2 MG Mineral Oil (Fleet Oil Enema) 133 ml DAILY PRN [place] 09/03/16 19:15 10/03/16 19:14 Objective Vital Signs Date Time Temp Pulse Resp B/P Pulse Ox O2 Delivery O2 Flow Rate FiO2 09/03/16 16:00 92 Room Air 09/03/16 15:49 37.0 71 18 120/81 92 Room Air 09/03/16 08:00 Room Air 09/03/16 07:13 36.7 62 18 105/67 92 Room Air 09/03/16 00:00 Room Air 09/02/16 23:32 36.9 67 16 116/74 94 Room Air 09/02/16 21:24 36.7 80 18 139/85 90 Room Air Physical Exam General Appearance: WD/WN, no apparent distress, + obese Eyes: normal inspection ENT: normal ENT inspection Neck: supple Respiratory/Chest: chest non-tender, lungs clear, normal breath sounds Cardiovascular: regular rate, rhythm Abdomen: normal bowel sounds, non tender, soft Neurologic/Psychiatric: alert, normal mood/affect, oriented x 3 Skin: normal color Laboratory Results Test 09/03/16 05:25 09/03/16 20:01 Total Creatine Kinase 83 U/L (26-192) Bedside Glucose 105 mg/dl (70-90) Assessment and Plan 55-year-old female with a past medical history of type 2 diabetes, attention, hypertension, hyperlipidemia, hypothyroidism, GERD, chronic pain syndrome, neuropathy and asthma presented to the ED with complaints of persistent chest pain that started after midnight yesterday. She was in the ED with a friend and had develop chest pain and a burning sensation/heaviness in her right arm. She had about 2 episodes of vomiting and to return to the ER to be evaluated for chest pain. She had undergone cardiac catheterization and was going to be discharged yesterday but she requested to stay overnight and she was not comfortable to be on her own. This morning she was going to be discharged but she complained about constipation and received MiraLAX. She later complained about severe abdominal pain and her discharge was canceled Abdominal pain: History of several bowel surgeries -KUB ordered to rule out obstruction- negative - Pain control with morphine when necessary NSTEMI with f/h of CAD s/p cardiac cath: Likely stress induced myopathy versus coronary vasospasm - EKG with no acute ST T wave changes - Initial troponin negative, troponin peaked at 29 - Echo with no WMA - Cardiology was consulted and she was started on heparin drip , The catheterization was delayed due to elevated creatinine. - Due to intolerance to aspirin and NSAIDs ,( breathing difficulties) aspirin has been avoided - She had received a loading dose of Plavix while in the ER which was continued. - Recommended to continue Plavix for an year - Metoprolol dosage has been changed to 50 mg twice daily - Crestor 20 mg -Sublingual nitroglycerin as needed for chest pain -Lisinopril has not been added considering borderline blood pressure Acute kidney injury - Resolved - Creatinine on presentation 2.3 Leukocytosis with h/o MRSA -Recent admission for UTI 07/25- 07/28- pansensitive Escherichia coli - UA- 10-30 wbc's , 1+ bacteria, negative nitrite - Urine culture negative Wound on right leg: - ID was consulted, was initially on Primaxin and daptomycin which was later transitioned to doxycycline - Doxycycline to be continued for 10 days Flank pain (different from her chronic low back pain) -Lumbar spine CT ordered- Chronic and postoperative change. No change in the prior study. Old compression deformity L3 with a slight old concave deformity superior endplate L5. - Renal ultrasound - Small bilateral renal cysts. Otherwise negative study. No evidence for hydronephrosis Type 2 diabetes: Insulin sliding scale Hypothyroidism - continue levothyroxine sodium at 150 g by mouth daily. Depression/anxiety - continue amitriptyline 50 mg by mouth at bedtime and fluoxetine 40 mg by mouth at bedtime. Chronic pain syndrome - continue OxyContin 20 mg by mouth 4 times daily, and received morphine sulfate 2 mg IV every 30 minutes when necessary. - Continue OxyContin upon discharge GERD - 40 mg Protonix daily Peripheral neuropathy - Gabapentin 800 mg 3 times a day Asthma/allergy : - continue Singulair 10 mg every morning. - Xopenex/Atrovent, Advair Full code Discharge planning: home Resident Tracking Resident Involvement: Resident Care Provided Care Provided: Adult Hospital Medicine Reviewed: Pt Seen/Exam by Me History Resident Physician Supervision Note: I interviewed and examined the patient. Discussed with Dr. Montero and agree with findings and plan as documented in the note. Any exceptions or clarifications are listed here: Patient had right lower quadrant abdominal pain for 1 hour as I was about to discharge her. She had some associated nausea but no vomiting. Aside from yesterday, she has not moved her bowels for 4 days and she usually does every day. She did receive quite a bit of morphine during this admission which may be contributing to constipation. Acute abdominal series was performed and was negative for obstruction. She was kept overnight to work on her bowel regimen and improve her abdominal pain. Tele reviewed and normal NAD, morbidly obese RRR no mgr CTAB no wcr Abdomen: Positive bowel sounds, morbidly obese, large midline laparotomy scar and right lower quadrant open appendectomy scar, palpable stool in the colon, positive tenderness to palpation in the right lower quadrant and right periumbilical region without guarding or rebound tenderness MSK: +TTP over lumbar paraspinous muscles, no masses or skin lesions Ext no edema 55 yo female here with chest pain and NSTEMI secondary to stress-induced vs small vessel disease with clean coronary arteries. Now with delayed discharge due to abdominal pain likely secondary to constipation -continue on Plavix, metoprolol, statin -Lower back pain-CT abd/pel neg, L-spine CT showed chronic degenerative changes and stenosis plus old compression fxs, could be source of pain plus muscle spasm -recommend f/u with PCP and her Pain Man MD Dr. Beck -Start milk of magnesia and Fleet oil enema for constipation -dc to home in the AM if abdominal pain resolved Documented By: Marina Gallardo
[2016-09-03 21:01] VITALS: BP 117/82; PULSE 72
[2016-09-03] MEDS: FLUOXETINE HCL 20 MG CAP PO SCH (21:05)
[2016-09-03] MEDS: MONTELUKAST SOD 10 MG TAB PO SCH (21:05)
[2016-09-03] MEDS: ZOLPIDEM TARTRATE 5 MG TAB PO PRN (23:47)
[2016-09-03 23:49] VITALS: BP 138/88; PULSE 67; TEMP 36.9; O2SAT 93
[2016-09-04] MEDS: OXYCODONE HCL IR 5 MG TAB (IMMEDIATE RELEASE) PO SCH ×4 (03:31→20:32)
[2016-09-04] MEDS: MoRPHine SULFATE 2 MG/ML CARP IV PRN ×2 (04:44→08:41)
[2016-09-04] MEDS: LEVOTHYROXINE 150 MCG TAB PO SCH (05:59)
[2016-09-04 07:00] VITALS: BP 115/81; PULSE 64; TEMP 36.9; O2SAT 91
[2016-09-04] MEDS: FLUTICASONE HFA 220 MCG INHALER INH SCH ×2 (07:27→20:33)
[2016-09-04] MEDS: PANTOprazole SOD 40 MG TAB PO SCH (07:27)
[2016-09-04] MEDS: FLUTICASONE PROPIONATE NA SPR 16 GM BTL SCH ×2 (07:28→20:34)
[2016-09-04] MEDS: METOPROLOL TARTRATE 50 MG TAB PO SCH ×2 (07:28→20:38)
[2016-09-04] MEDS: GABAPENTIN 800 MG TAB PO SCH ×3 (07:28→20:38)
[2016-09-04] MEDS: CLOPIDOGREL BISULFATE 75 MG TAB PO SCH (07:28)
[2016-09-04] MEDS: DOXYCYCLINE HYCLATE 100 MG CAP PO SCH ×2 (07:29→20:40)
[2016-09-04] MEDS: ROSUVASTATIN CALCIUM 5 MG TAB PO SCH (07:29)
[2016-09-04] MEDS: NYSTATIN POWDER 15GM BTL EXT SCH ×2 (07:30→20:36)
[2016-09-04 08:40] LABS: BUN/CREATININE RATIO 23.3 (10-20); CREATININE 0.72 mg/dl (0.60-1.20); POTASSIUM 4.4 mmol/L (3.5-5.1)
[2016-09-04] MEDS: ONDANSETRON INJ 2 MG/ML 2 ML VIAL IV PRN ×2 (08:40→15:49)
[2016-09-04] MEDS: INSULIN ASPART 100 UNITS/ML 3 ML PEN SC SCH ×4 (08:47→20:41)
[2016-09-04 09:00] LABS: CALCIUM 9.9 mg/dl (8.5-10.1)
[2016-09-04] MEDS ORDERED: NURSING VERBAL MED ORDER ONE (09:00)
[2016-09-04] MEDS ORDERED: BISACODYL 10 MG SUPP PR STA (09:01)
[2016-09-04] MEDS: MAGNESIUM HYDROXIDE SUSP 30 ML UDC PO PRN ×2 (09:40→20:35)
[2016-09-04] MEDS: POLYETHYLENE (MIRALAX) 17 GM PACK PO PRN ×2 (09:40→20:34)
[2016-09-04 15:09] VITALS: BP 128/79; PULSE 73; TEMP 36.9; O2SAT 91
[2016-09-04] MEDS ORDERED: OPTIRAY 320 IV PRN (15:15)
--- NOTE | 2016-09-04 19:30 | DIAGNOSTIC IMAGING REPORT ---
ABDOMEN AND PELVIS CT WITH IV AND ORAL CONTRAST CT DOSE: 1300.71 mGy.cm HISTORY: Pain Right sided abdominal pain, rule out hernia TECHNIQUE: Multiaxial CT images of the abdomen and pelvis were performed following the use of intravenous and oral contrast. COMPARISON STUDY: 08/31/2016 FINDINGS: Lung bases are generally clear. Minimal dependent basilar atelectasis. Mild fatty infiltration of the liver. Prior cholecystectomy. Several small accessory spleens. Small right renal cyst. Kidneys are negative for hydronephrosis. Bowel pattern is nonobstructive. Multiple anterior abdominal wall ventral hernia repairs. No evidence for recurrent hernia. Bowel pattern is nonobstructive. The bladder is midline. There are no contained calcifications. IMPRESSION: No evidence for current hernia. Prior ventral hernia repairs. Nonobstructive bowel pattern. Electronically signed by: Lionel Alexander M.D. 09/04/2016 7:28 PM Dictated Date/Time: 09/04/2016 7:25 PM
[2016-09-04] MEDS: FLUOXETINE HCL 20 MG CAP PO SCH (20:39)
[2016-09-04] MEDS: MONTELUKAST SOD 10 MG TAB PO SCH (20:39)
[2016-09-04] MEDS ORDERED: MILK AND MOLASSES ENEMA PR ONE (21:30)
--- NOTE | 2016-09-04 22:55 | Family Medicine Progress Note ---
Progress Note Date of Service September 04, 2016. Subjective Pt evaluation today including: conversation w/ patient, physical exam, chart review, lab review Pain: complains of abdominal pain PO Intake: good Voiding: no voiding problems complains of feeling constipated and bloated and has abdominal pain. denies Cp/SOB/palpitations Constitutional: No chills, No fever Eyes: No worsening of vision ENT: No hearing loss Respiratory: No cough, No sputum Cardiovascular: No chest pain, No orthopnea Abdomen: + constipation, + pain, No nausea, No vomiting Musculoskeletal: No joint pain Female : No dysuria Neurologic: No memory loss Psychiatric: No depression symptoms Heme: No abnormal bleeding/bruising Endo: No fatigue Medications Current Inpatient Medications Medications (Trade) Dose Ordered Sig/Sid Route Start Time Stop Time Status Last Admin Dose Admin Acetaminophen (Tylenol Tab) 650 mg Q4H PRN PO 08/30/16 06:15 09/29/16 06:14 08/31/16 20:24 650 MG Zolpidem Tartrate (Ambien Tab) 5 mg HSZ PRN PO 08/30/16 06:15 09/29/16 06:14 09/03/16 23:47 5 MG Nitroglycerin (Nitrostat Tab) 0.4 mg UD PRN SL 08/30/16 06:15 09/29/16 06:14 09/01/16 22:16 0.4 MG Ondansetron HCl (Zofran Inj) 4 mg Q6H PRN IV 08/30/16 06:15 09/29/16 06:14 09/04/16 15:49 4 MG Insulin Aspart (novoLOG ASPART) SLIDING SCALE If C... ACHS SC 08/30/16 07:00 09/29/16 06:59 09/04/16 13:42 6 UNITS Glucose (Glucose 40% Gel) UD PRN PO 08/30/16 06:15 09/29/16 06:14 Glucose (Glucose Chew Tab) 1 tabs UD PRN PO 08/30/16 06:15 09/29/16 06:14 Dextrose (Dextrose 50% 50ML Syringe) 50 ml UD PRN IV 08/30/16 06:15 09/29/16 06:14 Glucagon (Glucagon Inj) 1 mg UD PRN SQ 08/30/16 06:15 09/29/16 06:14 Acetaminophen/ Butalbital/ Caffeine (Fioricet Tab) 1 tab DAILY PRN PO 08/30/16 06:15 09/29/16 06:14 09/01/16 23:43 1 TAB Fluoxetine HCl (Prozac Cap) 40 mg HS PO 08/30/16 21:00 09/29/16 20:59 09/04/16 20:39 40 MG Gabapentin (Neurontin Tab) 800 mg TID PO 08/30/16 09:00 09/29/16 08:59 09/04/16 20:38 800 MG Levothyroxine Sodium (Synthroid Tab) 150 mcg DAILYBB PO 08/30/16 08:00 09/29/16 07:59 09/04/16 05:59 150 MCG Loratadine (Claritin Tab) 10 mg DAILY PRN PO 08/30/16 06:15 09/29/16 06:14 09/02/16 08:55 10 MG Metoprolol Tartrate (Lopressor Tab) 50 mg BID PO 08/30/16 09:00 09/29/16 08:59 09/04/16 20:38 50 MG Montelukast Sodium (Singulair Tab) 10 mg QPM PO 08/30/16 21:00 09/29/16 20:59 09/04/16 20:39 10 MG Oxycodone HCl (Roxicodone Immediate Rel Tab) 20 mg Q6H PO 08/30/16 08:00 09/13/16 07:59 09/04/16 20:32 20 MG Pantoprazole Sodium (Protonix Tab) 40 mg QAM PO 08/30/16 09:00 09/29/16 08:59 09/04/16 07:27 40 MG Clopidogrel Bisulfate (plAVix TAB) 75 mg QAM PO 08/30/16 09:00 09/29/16 08:59 09/04/16 07:28 75 MG Ipratropium Bob White (Atrovent 0.02% 0.5MG/2.5ML Neb) 0.5 mg Q2R PRN INH 08/30/16 07:00 09/29/16 06:59 Levalbuterol (Xopenex 1.25MG/ 0.5ML Neb) 1.25 mg Q2R PRN INH 08/30/16 07:00 09/29/16 06:59 Heparin Sodium (Porcine) (Heparin 10 Unit/ ml 5 ml Flush) 5 ml PRN PRN FLUSH 08/30/16 09:00 09/29/16 08:59 09/04/16 15:50 5 ML Rosuvastatin Calcium (Crestor Tab) 20 mg QAM PO 08/31/16 10:15 09/30/16 10:14 09/04/16 07:29 20 MG Fluticasone Propionate (Flovent Hfa 220MCG Inhaler) 1 puffs BID INH 09/01/16 09:00 10/01/16 08:59 09/04/16 20:33 1 PUFFS Nystatin (Mycostatin Powder) 1 appln BID EXT 09/01/16 09:00 10/01/16 08:59 09/04/16 07:30 1 APPLN Lorazepam (Ativan Tab) 0.5 mg DAILY PRN PO 09/01/16 09:15 10/01/16 09:14 09/01/16 10:18 0.5 MG Fluticasone Propionate (Flonase Nasal Cashion) 2 sprays BID NA 09/01/16 21:00 10/01/16 20:59 09/04/16 20:34 2 SPRAYS Doxycycline Hyclate (Vibramycin Cap) 100 mg BID PO 09/02/16 21:00 09/12/16 20:59 09/04/16 20:40 100 MG Mineral Oil (Fleet Oil Enema) 133 ml DAILY PRN DE 09/03/16 19:15 10/03/16 19:14 09/04/16 11:49 133 ML Magnesium Hydroxide (Milk Of Magnesia Susp) 30 ml BID PRN PO 09/04/16 09:15 10/04/16 09:14 09/04/16 20:35 30 ML Polyethylene (Miralax Powder Packet) 17 gm BID PRN PO 09/04/16 09:15 10/04/16 09:14 09/04/16 20:34 17 GM Ioversol (Optiray 320) 111 ml UD PRN IV 09/04/16 15:15 09/08/16 15:14 Objective Vital Signs Date Time Temp Pulse Resp B/P Pulse Ox O2 Delivery O2 Flow Rate FiO2 09/04/16 16:00 Room Air 09/04/16 15:09 36.9 73 20 128/79 91 Room Air 09/04/16 08:00 Room Air 09/04/16 07:00 36.9 64 18 115/81 91 Room Air 09/04/16 00:00 Room Air 09/03/16 23:49 36.9 67 18 138/88 93 Room Air Physical Exam General Appearance: WD/WN, no apparent distress Eyes: normal inspection ENT: hearing grossly normal Neck: supple Respiratory/Chest: chest non-tender, lungs clear, normal breath sounds, no respiratory distress, no accessory muscle use Cardiovascular: regular rate, rhythm Abdomen: normal bowel sounds, soft, + distended, + tenderness (diffuse) Neurologic/Psychiatric: alert, normal mood/affect, oriented x 3 Skin: normal color Laboratory Results 09/04/16 08:02 Test 09/04/16 08:02 09/04/16 20:32 Anion Gap 6.0 mmol/L (3-11) Est Creatinine Clear Calc Drug Dose 97.2 ml/min Estimated GFR () 107.7 Estimated GFR (Non- 93.0 BUN/Creatinine Ratio 23.3 (10-20) Lactic Acid Level 1.0 mmol/L (0.4-2.0) Calcium Level 9.9 mg/dl (8.5-10.1) Bedside Glucose 101 mg/dl (70-90) Assessment and Plan 55-year-old female with a past medical history of type 2 diabetes, attention, hypertension, hyperlipidemia, hypothyroidism, GERD, chronic pain syndrome, neuropathy and asthma presented to the ED with complaints of persistent chest pain that started after midnight yesterday. She was in the ED with a friend and had develop chest pain and a burning sensation/heaviness in her right arm. She had about 2 episodes of vomiting and to return to the ER to be evaluated for chest pain. She had undergone cardiac catheterization and was going to be discharged yesterday but she requested to stay overnight and she was not comfortable to be on her own. yesterday morning she was going to be discharged but she complained about constipation and received MiraLAX. She later complained about severe abdominal pain and her discharge was canceled. KUB was negative. She continued to complain about pain and being constipated but seemed to appear comfortable Abdominal pain: History of several bowel surgeries and hernia -KUB ordered to rule out obstruction- negative -Abd CT:No evidence for current hernia. Prior ventral hernia repairs. Nonobstructive bowel pattern. aggressive bowel regimen NSTEMI with f/h of CAD s/p cardiac cath: Likely stress induced myopathy versus coronary vasospasm - EKG with no acute ST T wave changes - Initial troponin negative, troponin peaked at 29 - Echo with no WMA - Cardiology was consulted and she was started on heparin drip , The catheterization was delayed due to elevated creatinine. - Due to intolerance to aspirin and NSAIDs ,( breathing difficulties) aspirin has been avoided - She had received a loading dose of Plavix while in the ER which was continued. - Recommended to continue Plavix for an year - Metoprolol dosage has been changed to 50 mg twice daily - Crestor 20 mg -Sublingual nitroglycerin as needed for chest pain -Lisinopril has not been added considering borderline blood pressure Acute kidney injury - Resolved - Creatinine on presentation 2.3 Leukocytosis with h/o MRSA -Recent admission for UTI 07/25- 07/28- pansensitive Escherichia coli - UA- 10-30 wbc's , 1+ bacteria, negative nitrite - Urine culture negative Wound on right leg: - ID was consulted, was initially on Primaxin and daptomycin which was later transitioned to doxycycline - Doxycycline to be continued for 10 days Flank pain (different from her chronic low back pain) -Lumbar spine CT ordered- Chronic and postoperative change. No change in the prior study. Old compression deformity L3 with a slight old concave deformity superior endplate L5. - Renal ultrasound - Small bilateral renal cysts. Otherwise negative study. No evidence for hydronephrosis Type 2 diabetes: Insulin sliding scale Hypothyroidism - continue levothyroxine sodium at 150 g by mouth daily. Depression/anxiety - continue amitriptyline 50 mg by mouth at bedtime and fluoxetine 40 mg by mouth at bedtime. Chronic pain syndrome - continue OxyContin 20 mg by mouth 4 times daily, and received morphine sulfate 2 mg IV every 30 minutes when necessary. - Continue OxyContin upon discharge GERD - 40 mg Protonix daily Peripheral neuropathy - Gabapentin 800 mg 3 times a day Asthma/allergy : - continue Singulair 10 mg every morning. - Xopenex/Atrovent, Advair Resident Tracking Resident Involvement: Resident Care Provided Care Provided: Adult [facility] Medicine Reviewed: Pt Seen/Exam by Me History Resident Physician Supervision Note: I interviewed and examined the patient. Discussed with Dr. Montero and agree with findings and plan as documented in the note. Any exceptions or clarifications are listed here: Continues with right lower abdominal pain, acute obstruction series yesterday was negative, she took morphine overnight. Tele reviewed and normal NAD, morbidly obese RRR no mgr CTAB no wcr Abdomen: Positive bowel sounds, morbidly obese, large midline laparotomy scar and right lower quadrant open appendectomy scar, palpable stool in the colon, positive tenderness to palpation in the right lower quadrant and right periumbilical region without guarding or rebound tenderness, no definite ventral hernia palpated but abdomen is morbidly obese MSK: +TTP over lumbar paraspinous muscles, no masses or skin lesions Ext no edema 55 yo female here with chest pain and NSTEMI secondary to stress-induced vs small vessel disease with clean coronary arteries. Now with delayed discharge due to persistent abdominal pain likely secondary to constipation but given history of multiple abdominal surgeries and ventral hernia repairs, will get CT scan of the abdomen and pelvis to rule out incarcerated hernia -continue on Plavix, metoprolol, statin -Lower back pain-CT abd/pel neg, L-spine CT showed chronic degenerative changes and stenosis plus old compression fxs, could be source of pain plus muscle spasm -recommend f/u with PCP and her Pain Man MD Dr. Beck -Add on milk of molasses enema and continue other bowel regimen as before -dc to home in the AM if abdominal pain resolved and CT negative Documented By: Marina Gallardo
[2016-09-04] MEDS: ZOLPIDEM TARTRATE 5 MG TAB PO PRN (22:56)
[2016-09-05 00:31] VITALS: BP 112/69; PULSE 69; TEMP 36.8; O2SAT 94
[2016-09-05] MEDS: OXYCODONE HCL IR 5 MG TAB (IMMEDIATE RELEASE) PO SCH ×2 (02:11→08:05)
[2016-09-05] MEDS: LEVOTHYROXINE 150 MCG TAB PO SCH (05:46)
[2016-09-05 06:58] VITALS: BP 139/80; PULSE 80; TEMP 36.8; O2SAT 97
[2016-09-05] MEDS: NYSTATIN POWDER 15GM BTL EXT SCH (07:30)
[2016-09-05] MEDS ORDERED: MILK AND MOLASSES ENEMA PR ONE (07:30)
[2016-09-05] MEDS: GABAPENTIN 800 MG TAB PO SCH (08:03)
[2016-09-05] MEDS: FLUTICASONE PROPIONATE NA SPR 16 GM BTL SCH (08:03)
[2016-09-05] MEDS: PANTOprazole SOD 40 MG TAB PO SCH (08:03)
[2016-09-05] MEDS: FLUTICASONE HFA 220 MCG INHALER INH SCH (08:03)
[2016-09-05] MEDS: CLOPIDOGREL BISULFATE 75 MG TAB PO SCH (08:03)
[2016-09-05] MEDS: DOXYCYCLINE HYCLATE 100 MG CAP PO SCH (08:03)
[2016-09-05] MEDS: METOPROLOL TARTRATE 50 MG TAB PO SCH (08:04)
[2016-09-05] MEDS: ROSUVASTATIN CALCIUM 5 MG TAB PO SCH (08:04)
[2016-09-05] MEDS: INSULIN ASPART 100 UNITS/ML 3 ML PEN SC SCH ×2 (08:07→11:58)
[2016-09-05] MEDS ORDERED: DXY100 PO (13:30)
[2016-09-05 13:48] VITALS: BP 139/80; PULSE 80; TEMP 36.8; O2SAT 97
[2016-09-05] MEDS ORDERED: ROSU20TA PO (14:30)
[2017-01-11] MEDS ORDERED: DIPH25CA50 PO (09:33)
== END 2016-09-05 15:00 | disposition home or self-care (01) | DRG 281 ==
LOC: ENRESERVDT → ENRESERVTM → C.EDB 03:57 → C.2E 06:12 → C.MS2W 09-02 21:15
PROVIDERS: ADMIT Hospitalist; ATTEND Family Medicine
PROC: 02HV33Z Insertion of Infusion Device into Superior Vena Cava, Percutaneous Approach (ICD-10-PCS; 2016-08-30)
PROC: B2111ZZ Fluoroscopy of Multiple Coronary Arteries using Low Osmolar Contrast (ICD-10-PCS; principal; 2016-09-02 10:56)
PROC: 4A023N7 Measurement of Cardiac Sampling and Pressure, Left Heart, Percutaneous Approach (ICD-10-PCS; principal; 2016-09-02 10:56)
DX: I21.4 Non-ST elevation (NSTEMI) myocardial infarction (principal); N17.9 Acute kidney failure, unspecified; Z68.41 Body mass index [BMI] 40.0-44.9, adult; I25.110 Atherosclerotic heart disease of native coronary artery with unstable angina pectoris; M81.0 Age-related osteoporosis without current pathological fracture; F32.9 Major depressive disorder, single episode, unspecified; F41.9 Anxiety disorder, unspecified; M17.9 Osteoarthritis of knee, unspecified; K21.9 Gastro-esophageal reflux disease without esophagitis; E66.01 Morbid (severe) obesity due to excess calories; J45.909 Unspecified asthma, uncomplicated; E03.9 Hypothyroidism, unspecified; G89.4 Chronic pain syndrome; M51.16 Intervertebral disc disorders with radiculopathy, lumbar region; G43.909 Migraine, unspecified, not intractable, without status migrainosus; D72.829 Elevated white blood cell count, unspecified; E78.5 Hyperlipidemia, unspecified; L30.4 Erythema intertrigo; E78.00 Pure hypercholesterolemia, unspecified; Z86.14 Personal history of Methicillin resistant Staphylococcus aureus infection; Z87.01 Personal history of pneumonia (recurrent); Z79.899 Other long term (current) drug therapy; Z79.02 Long term (current) use of antithrombotics/antiplatelets; Z87.891 Personal history of nicotine dependence; Z86.718 Personal history of other venous thrombosis and embolism; Z87.820 Personal history of traumatic brain injury; Z87.440 Personal history of urinary (tract) infections; Z88.6 Allergy status to analgesic agent; Z91.040 Latex allergy status; Z88.8 Allergy status to other drugs, medicaments and biological substances; Z88.2 Allergy status to sulfonamides; Z88.1 Allergy status to other antibiotic agents; Z90.49 Acquired absence of other specified parts of digestive tract; Z90.710 Acquired absence of both cervix and uterus; Z90.81 Acquired absence of spleen; Z82.5 Family history of asthma and other chronic lower respiratory diseases; Z83.3 Family history of diabetes mellitus; Z80.9 Family history of malignant neoplasm, unspecified; Z82.49 Family history of ischemic heart disease and other diseases of the circulatory system; Z83.79 Family history of other diseases of the digestive system; Z84.1 Family history of disorders of kidney and ureter

== ENCOUNTER 2016-09-12 22:30 | Emergency (ER) | payer OTHER ==
[~2016-09-12] VITALS: Ht 154.9 cm; Wt 68.7 kg
[~2016-09-12 22:30] MED LIST changes: -CEPH500C PO; -DOXY100C76 PO; +DXY100 PO; +NTRSLP4 SL; +PLV75 PO; +ROSU20TA PO; +TOPI100T20 PO
[2016-09-12 22:38] VITALS: TEMP 37.2; Ht 154.9 cm; Wt 68.7 kg
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
[2016-09-12] MEDS ORDERED: CLOP1TAB15 PO (23:28)
[2016-09-12] MEDS ORDERED: DOXY100C76 PO (23:29)
[2016-09-12] MEDS ORDERED: METO50TA16 PO (23:31)
[2016-09-12] MEDS ORDERED: NTRGSL/4 UT (23:32)
[2016-09-13 00:08] VITALS: BP 138/71; PULSE 80; O2SAT 97
--- NOTE | 2016-09-13 06:39 | DIAGNOSTIC IMAGING REPORT ---
RIGHT FOOT MIN 3 VIEWS ROUTINE CLINICAL HISTORY: Right foot pain. Trauma. COMPARISON: None. DISCUSSION: No acute fractures are visualized. There is fragmentation of the medial cuneiform, finding which is felt to be chronic. Arthritic changes are present the level the first tarsal metatarsal joint. Degenerative changes are also present the level the first metatarsal phalangeal joint. There is a plantar calcaneal spur. IMPRESSION: No acute fractures. Degenerative change. Electronically signed by: Dhaval Guevara M.D. 09/13/2016 6:38 AM Dictated Date/Time: 09/13/2016 6:37 AM
--- NOTE | 2016-09-13 06:40 | DIAGNOSTIC IMAGING REPORT ---
LEFT KNEE 1 OR 2 VIEWS ROUTINE CLINICAL HISTORY: Left knee pain status post trauma COMPARISON: None. DISCUSSION: There are advanced osteoarthritic changes with marked narrowing medial joint compartment. There are medial lateral joint compartment spurs. There are exuberant dorsal patellar spurs. IMPRESSION: Advanced osteoarthritic change. No acute fractures. Electronically signed by: Dhaval Guevara M.D. 09/13/2016 6:39 AM Dictated Date/Time: 09/13/2016 6:38 AM
[2017-01-10] MEDS ORDERED: VANC1INJ94 IV (10:52)
[2017-01-11] MEDS ORDERED: DIPH25CA50 PO (09:33)
== END 2016-09-13 00:09 | disposition home or self-care (01) ==
LOC: EDBD 22:30 → C.EDA 22:31
DX: S90.31XA Contusion of right foot, initial encounter (principal); S80.02XA Contusion of left knee, initial encounter; V49.40XA Driver injured in collision with unspecified motor vehicles in traffic accident, initial encounter; I24.9 Acute ischemic heart disease, unspecified; N17.9 Acute kidney failure, unspecified; J45.909 Unspecified asthma, uncomplicated; E78.5 Hyperlipidemia, unspecified; I10 Essential (primary) hypertension; E03.9 Hypothyroidism, unspecified; E66.01 Morbid (severe) obesity due to excess calories; Z82.5 Family history of asthma and other chronic lower respiratory diseases; Z83.3 Family history of diabetes mellitus; Z82.49 Family history of ischemic heart disease and other diseases of the circulatory system

== ENCOUNTER 2016-11-11 22:20 | Emergency (ER) | payer OTHER ==
[~2016-11-11] VITALS: Ht 154.9 cm; Wt 111.6 kg
[~2016-11-11 22:20] MED LIST changes: +ACETTAB14 PO; -ACETTAB15 PO; +CLOP1TAB15 PO; +DOXY100C76 PO; -DXY100 PO; -METO25TA56 PO; +METO50TA16 PO; +NTRGSL/4 UT; -NTRSLP4 SL; -PLV75 PO
[2016-11-11 22:30] VITALS: TEMP 37.3; Ht 154.9 cm; Wt 111.6 kg
[2016-11-11] MEDS ORDERED: ERYTHROMYCIN OP OINT 5 MG/GM 3.5 GM TUBE OP ONE (22:45)
[2016-11-11] MEDS ORDERED: OXYC1TAB PO (23:17)
[2016-11-11 23:51] LABS: BASO % 0.7 %; BASO ABS # 0.09 K/uL (0-0.2); COMPLETE YES; EOS % 8.3 %; HEMATOCRIT 40.8 % (37-47); IG% 0.2 %; LYMPH ABS # 3.45 K/uL (1.2-3.4); MEAN CELL VOLUME 90.5 fL (80-100); MEAN CORPUSCULAR HEMOGLOBIN 28.4 pg (25-34); MEAN CORPUSCULAR HGB CONC 31.4 g/dl (32-36); MEAN PLATELET VOLUME 9.7 fL (7.4-10.4); MONO % 10.7 %; NEUT % 52.1 %; PLATELET COUNT 441 K/uL (130-400); RED BLOOD COUNT 4.51 M/uL (4.2-5.4)
[2016-11-11] MEDS ORDERED: DOXYCYCLINE HYCLATE 100 MG CAP PO STA (23:55)
[2016-11-12 00:09] LABS: BUN/CREATININE RATIO 11.8 (10-20); CALCIUM 8.5 mg/dl (8.5-10.1); CREATININE 0.96 mg/dl (0.60-1.20); POTASSIUM 4.1 mmol/L (3.5-5.1)
[2016-11-12 00:11] VITALS: BP 116/90; PULSE 95; O2SAT 94
--- NOTE | 2016-11-12 00:15 | EMERGENCY ROOM VISIT NOTE ---
History First contact with patient: 22:30 Chief Complaint: TOE PAIN, INJURY Stated Complaint: CYST ABOVE L EYELID,BROKEN L PINKY TOE History of Present Illness The patient is a 55 year old female who presents to the Emergency Room with complaints of left eyelid lesion for the past few months and left pinky toe pain and swelling for the past few days who injured it over a week ago. Patient is diabetic. Tetanus is current. Patient denies chest pain, dyspnea, fever, chills, nausea, vomiting, diarrhea, numbness, tingling, loss of vision. 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 Patient states Augmentin makes her really sick to her stomach. Review of Systems See HPI for pertinent positives & negatives. A total of 10 systems reviewed and were otherwise negative. Past Medical/Surgical History Medical Problems: (1) Abdominal pain (2) ACS (acute coronary syndrome) (3) Acute renal failure (4) ELIO (acute kidney injury) (5) Anxiety State Nos (6) Asthma (7) Back pain (8) Back pain (9) CHI (closed head injury) (10) Contusion of multiple sites (11) Contusion of multiple sites (12) Contusion of third finger, right (13) Degenerative arthritis of knee (14) Dehydration (15) Depressive Disorder Nec (16) Diab Inyah Wo Compl, Type Ii Or Unspec Type, Not Uncntrld (17) Esophageal Reflux (18) Fall (19) Fall due to slipping on ice or snow (20) Foot pain (21) Hx-Venous Thrombosis&Embolism (22) Hyperlipidemia Nec/Nos (23) Hypertension (24) Hypotension (25) Hypotension (26) Hypothyroidism Nos (27) Knee contusion (28) Left wrist pain (29) Leukocytosis (30) Lumbar Disc Displacement (31) Lumbar strain (32) Lumbosacral Neuritis Nos (33) Morbid Obesity (34) Nausea and vomiting (35) Nausea, vomiting, and diarrhea (36) Osteoporosis Nos (37) Post concussion syndrome (38) Right flank pain (39) SIRS (systemic inflammatory response syndrome) (40) Splenosis (41) UTI (urinary tract infection) Surgical Problems: (1) Hx of appendectomy (2) Hx of hernia repair Family History Asthma Diabetes mellitus FHx: cancer FHx: heart failure Gallbladder disease Heart disease Hypertension Kidney stones Social History Smoking Status: Never Smoker Alcohol Use: none Drug Use: none Marital Status: single Housing Status: lives with family Occupation Status: employed Current/Historical Medications Scheduled Amitriptyline Hcl (Amitriptyline Hcl), 50 MG PO HS Clopidogrel (Plavix), 75 MG PO DAILY Doxycycline Monohydrate (Monodox), 100 MG PO BID Fluoxetine (Prozac), 40 MG PO HS Fluticasone Prop/Salmeterol (Advair Diskus 500/50 60 Dose), 1 PUFF INH BID Gabapentin (Neurontin), 800 MG PO TID Levothyroxine Sodium (Synthroid), 150 MCG PO QAM Metoprolol Tartrate (Lopressor) (Lopressor), 50 MG PO BID Montelukast Sodium (Singulair), 10 MG PO QAM Omeprazole (Prilosec), 40 MG PO QAM Pioglitazone (Actos), 30 MG PO QAM Rosuvastatin Calcium (Crestor), 1 TAB PO DAILY Topiramate (Topamax), 100 MG PO BID Scheduled PRN Acetamin/Butalbital/Caffeine (Fioricet), 1 TAB PO UD PRN for Migraine Acetaminophen-Caffeine (Excedrin Tension Headache), 2 TABS PO Q6H PRN for Headache Albuterol Hfa (Ventolin Hfa), 2 PUFFS INH QID PRN for Wheezing Albuterol Sulf (Albuterol Sulfate), 1 DOSE NEB Q4 PRN for Wheezing Loratadine (Claritin), 10 MG PO DAILY PRN for Allergy Symptoms Midodrine (Midodrine HCl), 1 TAB PO UD PRN for Migraine Nitroglycerin (Nitrostat), 0.4 MG UT PRN PRN for chest pain Oxycodone Ir (Roxicodone Ir), 30 MG PO Q6 PRN for Pain Allergies Coded Allergies: Aspirin (Verified Allergy, Severe, SHORT OF BREATH, 11/11/16) Cephalexin (Verified Allergy, Severe, EDEMA OF FACE,LIPS,TONGUE, 11/11/16) Ketorolac Tromethamine (Verified Allergy, Severe, SHORTNESS OF BREATH, ) Latex2 -Systemic Allergic Response (Verified Allergy, Severe, DIFFICULTY BREATHING, 11/11/16) NSAIDs (Verified Allergy, Severe, SHORT OF BREATH, 11/11/16) Sulfa Antibiotics (Verified Allergy, Unknown, UNKNOWN- HAD RXN WHEN LITTLE , 11/11/16) Simvastatin (Verified Adverse Reaction, Intermediate, myalgias, 11/11/16) Metformin (Verified Adverse Reaction, Mild, GI SYMPTOMS, 11/11/16) Physical Exam Vital Signs Date Time Temp Pulse Resp B/P (MAP) Pulse Ox O2 Delivery O2 Flow Rate FiO2 11/12/16 00:11 95 18 116/90 94 Room Air 11/11/16 22:30 37.3 100 16 147/84 95 Room Air Physical Exam VITALS: Vitals are noted on the nurse's note and reviewed by myself. Vital signs stable. GENERAL: White female, in no acute distress, nondiaphoretic, well-developed well -nourished. SKIN: The skin was without rashes, erythema, edema, or bruising. There is no tenting of the skin. Capillary reflex less than 2 seconds. HEAD: Normocephalic atraumatic. EARS: External auditory canals clear, tympanic membranes pearly rose without erythema or effusion bilaterally. EYES: Left eyelid with Chalazion present. No purulent discharge. Pupils equal round and reactive to light and accommodation. Conjunctivae without injection, sclerae without icterus. Extraocular movements intact. NOSE: Patent, turbinates without inflammation or discharge. MOUTH: Mucous membranes moist. Pharynx without erythema or exudate. Uvula midline. Airway patent. Tongue does not deviate. NECK: Supple without nuchal rigidity. No lymphadenopathy. No thyromegaly. Cervical spine is nontender. No JVD. HEART: Regular rate and rhythm without murmurs gallops or rubs. LUNGS: Clear to auscultation bilaterally without wheezes, rales or rhonchi. No dullness to percussion. No retractions or accessory muscle use. ABDOMEN: Positive bowel sounds x 4. Normal tympanic percussion. Soft, nontender, without masses or organomegaly. Méndez sign negative. No guarding or rebound tenderness. MUSCULOSKELETAL: No muscle atrophy, erythema, or edema noted. Left pinky toe erythematous and edematous and tender to palpation with no deformity. No left foot or ankle pain. No lymphangitis. Pedal pulses +2 equal present bilaterally. NEURO: Patient was alert and oriented to person place and time. Normal sensation to light and sharp touch. No focal neurological deficits. Medical Decision & Procedures Laboratory Results 11/11/16 22:38 Red Blood Count 4.51, Mean Corpuscular Volume 90.5, Mean Corpuscular Hemoglobin 28.4, Mean Corpuscular Hemoglobin Concent 31.4, Mean Platelet Volume 9.7, Neutrophils (%) (Auto) 52.1, Lymphocytes (%) (Auto) 28.0, Monocytes (%) (Auto) 10.7, Eosinophils (%) (Auto) 8.3, Basophils (%) (Auto) 0.7, Neutrophils # (Auto ) 6.41, Lymphocytes # (Auto) 3.45, Monocytes # (Auto) 1.31, Eosinophils # (Auto ) 1.02, Basophils # (Auto) 0.09 11/11/16 22:38 Test 11/11/16 22:38 White Blood Count 12.30 K/uL (4.8-10.8) Red Blood Count 4.51 M/uL (4.2-5.4) Hemoglobin 12.8 g/dL (12.0-16.0) Hematocrit 40.8 % (37-47) Mean Corpuscular Volume 90.5 fL (80-100) Mean Corpuscular Hemoglobin 28.4 pg (25-34) Mean Corpuscular Hemoglobin Concent 31.4 g/dl (32-36) Platelet Count 441 K/uL (130-400) Mean Platelet Volume 9.7 fL (7.4-10.4) Neutrophils (%) (Auto) 52.1 % Lymphocytes (%) (Auto) 28.0 % Monocytes (%) (Auto) 10.7 % Eosinophils (%) (Auto) 8.3 % Basophils (%) (Auto) 0.7 % Neutrophils # (Auto) 6.41 K/uL (1.4-6.5) Lymphocytes # (Auto) 3.45 K/uL (1.2-3.4) Monocytes # (Auto) 1.31 K/uL (0.11-0.59) Eosinophils # (Auto) 1.02 K/uL (0-0.5) Basophils # (Auto) 0.09 K/uL (0-0.2) RDW Standard Deviation 47.8 fL (36.4-46.3) RDW Coefficient of Variation 14.4 % (11.5-14.5) Immature Granulocyte % (Auto) 0.2 % Immature Granulocyte # (Auto) 0.02 K/uL (0.00-0.02) Anion Gap 9.0 mmol/L (3-11) Est Creatinine Clear Calc Drug Dose 74.8 ml/min Estimated GFR () 76.1 Estimated GFR (Non- 65.7 BUN/Creatinine Ratio 11.8 (10-20) Calcium Level 8.5 mg/dl (8.5-10.1) Medications Administered Medications (Trade) Dose Ordered Sig/Sid Route Start Time Stop Time Status Last Admin Dose Admin Erythromycin (Erythromycin Oph Oint) 1 appln NOW ONCE OP 11/11/16 22:45 11/11/16 22:46 DC 11/11/16 22:45 1 APPLN Doxycycline Hyclate (Vibramycin Cap) 100 mg NOW STAT PO 11/11/16 23:55 11/11/16 23:56 DC 11/12/16 00:08 100 MG ED Course Prior records reviewed and summarized as above. Triage Nursing notes reviewed. Additional history obtained from family. The patient's history was concerning for swelling and redness of the skin. Differential diagnosis: Etiologies such as cellulitis, abscess, MRSA infection, DVT, necrotizing fasciitis, dermatitis, drug eruption, as well as others were entertained.. Physical examination: The physical examination was consistent with cellulitis ER treatment provided: doxy On reassessment the patient felt better. Diagnostics interpreted by me: The labs revealed leukocytosis. Hyperglycemia without DKA Imaging studies: Foot x-ray with no acute fracture or dislocation per my interpretation. Arthritic change. This appears to be isolated cellulitis with chalazion to the left eyelid. Patient was advised to follow-up ophthalmology for her ongoing symptoms and family care. She is advised to return to the ER immediately for fevers, severe pain, eye problems, worsening signs or symptoms or as needed. Patient was neurovascularly and neurologically intact. She was fitted with crutches and postop shoe. By the evaluation outlined above emergent etiologies such as abscess, necrotizing fasciitis, DVT, as well as others were deemed relatively unlikely. The pt informed about the findings as listed above. All questions were answered and pleased with the treatment. Return instructions were outlined and the patient was discharged in stable condition. Outpatient prescription management: Doxycycline Referral: The patient was referred back to ophthalmology and primary care physician for follow-up in 2 to 3 days for a recheck of the current condition. Medical Decision as above Impression Primary Impression: Chalazion left upper eyelid Additional Impression: Cellulitis of toe of left foot Departure Information Dispostion Home / Self-Care Condition GOOD Referrals Norberto Anderson MD (PCP) Patient Instructions My [facility] Additional Instructions Doxycycline 100mg: Take one pill twice daily for 10 days for your infection. Take with food, but avoid dairy. Avoid prolonged sun exposure since this medication makes you temporarily more susceptible to sunburns. All antibiotics can cause diarrhea. If this occurs and you feel worse or it does not resolve in 1-2 days follow up with your doctor or return to the Emergency Department as this could be signs of serious underlying problems. Any medication can cause an allergic reaction, stop the pills immediately and return to the ER for rash, hives, breathing difficulties, or swelling. Use erythromycin ointment 3 times a day to the eyelid. Acetaminophen(Tylenol) may be used for fever or pain. Use 1000mg every six hours as needed. Avoid using more than 3000mg in a 24 hour period. Rest and drink plenty of fluids as tolerated. Continue current medications. Avoid strenuous activities and anything that worsens your pain. Resume normal activities once your symptoms resolve. Wear postop shoe for comfort. Do not have it so tight that you cannot feel your foot. Use crutches as instructed. Return to the ER immediately for spreading of redness, abdominal pain, vomiting , fevers, chest pains, difficulty breathing, worsening of your condition, or as needed. Follow up with your primary physician and ophthalmology in 2-3 days for a recheck of your current condition. Problem Qualifiers
[2016-11-12] MEDS ORDERED: DOXY100C2 PO (00:27)
--- NOTE | 2016-11-12 06:46 | DIAGNOSTIC IMAGING REPORT ---
LEFT FOOT MIN 3 VIEWS ROUTINE CLINICAL HISTORY: 55 years-old Female presenting with left foot pain. TECHNIQUE: Frontal, oblique, and lateral views of the left foot were obtained. COMPARISON: None. FINDINGS: Prominent inferior calcaneal bone spur. Mild degenerative changes in the midfoot. No acute fracture or malalignment. No osseous erosion. IMPRESSION: 1. No acute osseous injury of the left foot. Electronically signed by: Lele King M.D. 11/12/2016 6:44 AM Dictated Date/Time: 11/12/2016 6:43 AM
[2017-01-10] MEDS ORDERED: VANC1INJ94 IV (10:52)
[2017-01-11] MEDS ORDERED: BND25X PO (09:33)
== END 2016-11-12 00:35 | disposition home or self-care (01) ==
LOC: C.EDB 22:21 → C.EDA 11-12 00:35
DX: L03.032 Cellulitis of left toe (principal); H00.14 Chalazion left upper eyelid; E11.9 Type 2 diabetes mellitus without complications; I24.9 Acute ischemic heart disease, unspecified; N17.9 Acute kidney failure, unspecified; F41.9 Anxiety disorder, unspecified; J45.909 Unspecified asthma, uncomplicated; M17.9 Osteoarthritis of knee, unspecified; F32.9 Major depressive disorder, single episode, unspecified; K21.9 Gastro-esophageal reflux disease without esophagitis; Z86.718 Personal history of other venous thrombosis and embolism; E78.5 Hyperlipidemia, unspecified; I10 Essential (primary) hypertension; E03.9 Hypothyroidism, unspecified; M54.17 Radiculopathy, lumbosacral region; E66.01 Morbid (severe) obesity due to excess calories; M81.0 Age-related osteoporosis without current pathological fracture; Z87.440 Personal history of urinary (tract) infections; Z83.3 Family history of diabetes mellitus; Z80.9 Family history of malignant neoplasm, unspecified; Z82.49 Family history of ischemic heart disease and other diseases of the circulatory system; Z83.79 Family history of other diseases of the digestive system; Z84.1 Family history of disorders of kidney and ureter; Z79.02 Long term (current) use of antithrombotics/antiplatelets; Z79.899 Other long term (current) drug therapy

== ENCOUNTER 2017-01-06 02:49 | Inpatient (IN) | payer OTHER ==
[~2017-01-06] VITALS: Ht 157.5 cm; Wt 114.5 kg
[~2017-01-06 02:49] MED LIST changes: +DOXY100C2 PO; +OXYC1TAB PO; -OXYC1TAB3 PO
--- NOTE | 2017-01-06 03:11 | EMERGENCY ROOM VISIT NOTE ---
History Report prepared by Mynor: Som Foy Under the Supervision of: Dr. Keira Uribe D.O. First contact with patient: 02:58 Chief Complaint: LEG PAIN,LEG INJURY Stated Complaint: RT ANKLE SWOLLEN,RT CALF SWOLLEN SEVERE PAIN History of Present Illness The patient is a 56 year old female who presents to the Emergency Room with complaints of worsening swelling in the right leg that began yesterday afternoon , several hours prior to arrival. The patient states that she began to notice the swelling in her right leg that was both above the knee and in the ankle. The leg is also sore. The patient has a history of a deep vein thrombosis that traveled to her lung in the past. She also complains of a raspy voice that began earlier today. The patient denies headache, change in vision, fevers, chest pain, shortness of breath, nausea, vomiting, diarrhea, pain with urination , and melena. 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 A total of 10 systems reviewed and were otherwise negative. Past Medical & Surgical Medical Problems: (1) Abdominal pain (2) ACS (acute coronary syndrome) (3) Acute renal failure (4) ELIO (acute kidney injury) (5) Anxiety State Nos (6) Asthma (7) Back pain (8) Back pain (9) CHI (closed head injury) (10) Contusion of multiple sites (11) Contusion of multiple sites (12) Contusion of third finger, right (13) Degenerative arthritis of knee (14) Dehydration (15) Depressive Disorder Nec (16) Diab Niyah Wo Compl, Type Ii Or Unspec Type, Not Uncntrld (17) Esophageal Reflux (18) Fall (19) Fall due to slipping on ice or snow (20) Foot pain (21) Hx-Venous Thrombosis&Embolism (22) Hyperlipidemia Nec/Nos (23) Hypertension (24) Hypotension (25) Hypotension (26) Hypothyroidism Nos (27) Knee contusion (28) Left wrist pain (29) Leukocytosis (30) Lumbar Disc Displacement (31) Lumbar strain (32) Lumbosacral Neuritis Nos (33) Morbid Obesity (34) Nausea and vomiting (35) Nausea, vomiting, and diarrhea (36) Osteoporosis Nos (37) Post concussion syndrome (38) Right flank pain (39) Sepsis (40) SIRS (systemic inflammatory response syndrome) (41) Splenosis (42) UTI (urinary tract infection) Surgical Problems: (1) Hx of appendectomy (2) Hx of hernia repair Family History Asthma Diabetes mellitus FHx: cancer FHx: heart failure Gallbladder disease Heart disease Hypertension Kidney stones Social History Smoking Status: Never Smoker Alcohol Use: none Drug Use: none Marital Status: single Housing Status: lives with family Occupation Status: employed Current/Historical Medications Scheduled Amitriptyline Hcl (Amitriptyline Hcl), 50 MG PO HS Clopidogrel (Plavix), 75 MG PO DAILY Fluoxetine (Prozac), 40 MG PO HS Fluticasone Prop/Salmeterol (Advair Diskus 500/50 60 Dose), 1 PUFF INH BID Gabapentin (Neurontin), 800 MG PO TID Levothyroxine Sodium (Synthroid), 150 MCG PO QAM Metoprolol Succinate (Metoprolol Succinate ER), 100 MG PO DAILY Montelukast Sodium (Singulair), 10 MG PO QAM Omeprazole (Prilosec), 40 MG PO QAM Rosuvastatin Calcium (Crestor), 1 TAB PO DAILY Scheduled PRN Oewitjlfhxowu-Ihsegbkicwjyy-Hz (Isometheptene/Dichloralph 325-65-100 mg), 1 CAP PO Q4H PRN for Migraine Albuterol Hfa (Ventolin Hfa), 2 PUFFS INH QID PRN for Wheezing Albuterol Sulf (Albuterol Sulfate), 1 DOSE NEB Q4 PRN for Wheezing Loratadine (Claritin), 10 MG PO DAILY PRN for Allergy Symptoms Nitroglycerin (Nitrostat), 0.4 MG UT PRN PRN for chest pain Oxycodone Ir (Roxicodone Ir), 30 MG PO Q6 PRN for Pain Allergies Coded Allergies: Aspirin (Verified Allergy, Severe, SHORT OF BREATH, 01/06/17) Cephalexin (Verified Allergy, Severe, EDEMA OF FACE,LIPS,TONGUE, 01/06/17) Ketorolac Tromethamine (Verified Allergy, Severe, SHORTNESS OF BREATH, 03/14) Latex2 -Systemic Allergic Response (Verified Allergy, Severe, DIFFICULTY BREATHING, 01/06/17) NSAIDs (Verified Allergy, Severe, SHORT OF BREATH, 01/06/17) Sulfa Antibiotics (Verified Allergy, Unknown, UNKNOWN- HAD RXN WHEN LITTLE , 01/06/17) Simvastatin (Verified Adverse Reaction, Intermediate, myalgias, 01/06/17) Metformin (Verified Adverse Reaction, Mild, GI SYMPTOMS, 01/06/17) Physical Exam Vital Signs Date Time Temp Pulse Resp B/P (MAP) Pulse Ox O2 Delivery O2 Flow Rate FiO2 01/06/17 09:05 115 17 90 01/06/17 08:36 139/87 01/06/17 08:05 122 19 01/06/17 08:00 120 21 01/06/17 07:34 124 01/06/17 07:18 37.7 119 22 125/83 95 Room Air 01/06/17 07:16 125/83 01/06/17 05:07 99 18 150/82 96 01/06/17 02:55 37.0 112 18 149/94 95 Room Air Physical Exam GENERAL: alert, well appearing, well nourished, no distress, non-toxic. Obese EYE EXAM: normal conjunctiva, PERRL and EOM's grossly intact OROPHARYNX: no exudate, no erythema, lips, buccal mucosa, and tongue normal and mucous membranes are moist NECK: supple, no nuchal rigidity, no adenopathy, non-tender LUNGS: Slightly diminished Clear to auscultation. Normal chest wall mechanics HEART: no murmurs, S1 normal and S2 normal ABDOMEN: Obese, abdomen soft, non-tender, normo-active bowel sounds, no masses, no rebound or guarding. BACK: Back is symmetrical on inspection and there is no deformity, no midline tenderness, no CVA tenderness. SKIN: no rashes and no bruising UPPER EXTREMITIES: upper extremities are grossly normal. LOWER EXTREMITIES: No pitting edema. Tender to palpation to the posterior right knee and calf. No deformity, no joint effusion, no obvious trauma. There is swelling around the lateral malleolus. No ecchymosis, normal pulses, decreased range of motion at right knee and right ankle secondary to pain. NEURO EXAM: Normal sensorium, cranial nerves II-XII intact, normal speech, no weakness of arms, no weakness of legs. Medical Decision & Procedures ER Provider Diagnostic Interpretation: Radiology results have been interpreted by the radiologist and reviewed by me. X-RAY: ANKLE: No acute fracture or dislocation. CHEST PORTABLE SINGLE VIEW: Chest, Portable single view, suboptimal imaging secondary to body habitus, no effusion, no cardiomegaly, no wide mediastinum, no focal infiltrate, patient rotated, US VENOUS RIGHT LOWER EXTREMITY: No sonographic evidence of DVT. Radiologist: Wilmar Wen M.D. Laboratory Results Test 01/06/17 03:15 01/06/17 06:14 Urine Color YELLOW Urine Appearance CLEAR (CLEAR) Urine pH 5.0 (4.5-7.5) Urine Specific [place] 1.026 (1.000-1.030) Urine Protein NEG (NEG) Urine Glucose (UA) NEG (NEG) Urine Ketones NEG (NEG) Urine Occult Blood NEG (NEG) Urine Nitrite NEG (NEG) Urine Bilirubin NEG (NEG) Urine Urobilinogen NEG (NEG) Urine Leukocyte Esterase TRACE (NEG) Urine WBC (Auto) 10-30 /hpf (0-5) Urine RBC (Auto) 0-4 /hpf (0-4) Urine Hyaline Casts (Auto) 1-5 /lpf (0-5) Urine Epithelial Cells (Auto) >30 /lpf (0-5) Urine Bacteria (Auto) 1+ (NEG) Immature Granulocyte % (Auto) 0.3 % White Blood Count 22.05 K/uL (4.8-10.8) Red Blood Count 4.63 M/uL (4.2-5.4) Hemoglobin 12.6 g/dL (12.0-16.0) Hematocrit 41.0 % (37-47) Mean Corpuscular Volume 88.6 fL (80-100) Mean Corpuscular Hemoglobin 27.2 pg (25-34) Mean Corpuscular Hemoglobin Concent 30.7 g/dl (32-36) Platelet Count 415 K/uL (130-400) Mean Platelet Volume 9.8 fL (7.4-10.4) Neutrophils (%) (Auto) 73.4 % Lymphocytes (%) (Auto) 13.0 % Monocytes (%) (Auto) 8.8 % Eosinophils (%) (Auto) 4.0 % Basophils (%) (Auto) 0.5 % Neutrophils # (Auto) 16.16 K/uL (1.4-6.5) Lymphocytes # (Auto) 2.87 K/uL (1.2-3.4) Monocytes # (Auto) 1.94 K/uL (0.11-0.59) Eosinophils # (Auto) 0.89 K/uL (0-0.5) Basophils # (Auto) 0.12 K/uL (0-0.2) Immature Granulocyte # (Auto) 0.07 K/uL (0.00-0.02) Prothrombin Time 9.9 SECONDS (9.0-12.0) Prothromb Time International Ratio 0.9 (0.9-1.1) Activated Partial Thromboplast Time 29.5 SECONDS (21.0-31.0) Partial Thromboplastin Ratio 1.1 Pro-B-Type Natriuretic Peptide 121 pg/ml (0-900) Hepatitis C Antibody Screen NEG (NEG) Laboratory results per my review. Medications Administered Medications (Trade) Dose Ordered Sig/Sid Route Start Time Stop Time Status Last Admin Dose Admin Oxycodone HCl (Roxicodone Immediate Rel Tab) 30 mg NOW STAT PO 01/06/17 07:52 01/06/17 07:53 DC 01/06/17 08:13 30 MG Vancomycin HCl 1750 mg/Sodium Chloride 535 ml @ 200 mls/hr ONE STAT IV 01/06/17 07:56 01/06/17 10:36 DC 01/06/17 08:13 200 MLS/HR Enoxaparin Sodium (Lovenox Inj) 40 mg Q24H SQ 01/06/17 09:15 02/05/17 09:14 01/07/17 09:19 40 MG Acetaminophen (Tylenol Tab) 650 mg Q4H PRN PO 01/06/17 09:15 02/05/17 09:14 01/06/17 12:12 650 MG Oxycodone HCl (Roxicodone Immediate Rel Tab) 5 mg Q4H PRN PO 01/06/17 09:15 01/06/17 17:45 DC 01/06/17 16:19 5 MG ED Course 0301: The patient was evaluated in room A3. A complete history and physical exam was performed. 0530: Pt requesting blood work. updated on results. 0735: Updated on results. Mild evolving erythema b/l medial proximal LE, no ulcers/vesicles/bullae/petechiae. Pt states this is how her cellulitis typically starts. Pt with hx of MRSA. Medical Decision Differential diagnosis: Etiologies such as DVT, musculoskeletal, infection, joint effusion, trauma, lymphedema, idiopathic, CHF, as well as others were entertained.. Pt with likely evolving cellulitis, afebrile but leukocytosis noticed. Tachycardia noticed but more likely due to anxiety and mild narcotic withdrawal as pt states she is "past due" for her usual pain medications that she is on for chronic back pain. Doubt bacteremia/sepsis, however cultures drawn and given hx of MRSA pt started on vancomycin. Pt previously tx with doxocycline according to old records. No other focal complaints. Pt states feels voice "raspy" compared to normal but has seasonal allergies, cxr done negative for infiltrate. UA negative also. No abd pain. LE negative for DVT. No recent trauma. Doubt septic arthritis. Medication Reconcilliation Current Medication List: was personally reviewed by me Blood Pressure Screening Patient's blood pressure: Elevated blood pressure Blood pressure disposition: Elevated BP felt to be situational Consults Time Called: [phone] Consulting Physician: Dr. Gallardo Returned Call: [phone] Discussed case. She will evaluate pt for further treatment. Impression Primary Impression: Leg pain, right Additional Impression: Cellulitis Scribe Attestation The scribe's documentation has been prepared under my direction and personally reviewed by me in its entirety. I confirm that the note above accurately reflects all work, treatment, procedures, and medical decision making performed by me. Departure Information Dispostion Being Evaluated By Hospitalist Referrals Norberto Anderson MD (PCP) Patient Instructions My [facility] Problem Qualifiers Additional Impression: Cellulitis Site of cellulitis: extremity Site of cellulitis of extremity: lower extremity Laterality: unspecified laterality Qualified Codes: L03.119 - Cellulitis of unspecified part of limb
[2017-01-06 06:28] LABS: BASO % 0.5 %; BASO ABS # 0.12 K/uL (0-0.2); COMPLETE YES; IG% 0.3 %; LYMPH ABS # 2.87 K/uL (1.2-3.4); MEAN CELL VOLUME 88.6 fL (80-100); MEAN CORPUSCULAR HEMOGLOBIN 27.2 pg (25-34); MEAN CORPUSCULAR HGB CONC 30.7 g/dl (32-36); MEAN PLATELET VOLUME 9.8 fL (7.4-10.4); MONO % 8.8 %; NEUT % 73.4 %; PLATELET COUNT 415 K/uL (130-400); RED BLOOD COUNT 4.63 M/uL (4.2-5.4); WHITE BLOOD COUNT 22.05 K/uL (4.8-10.8)
--- NOTE | 2017-01-06 06:28 | DIAGNOSTIC IMAGING REPORT ---
ULTRASOUND RIGHT VENOUS DOPP LOWER EXT UNILAT CLINICAL HISTORY: Right leg pain and edema COMPARISON STUDY: No previous studies for comparison. FINDINGS: Real-time and color flow Doppler imaging were performed. Flow was seen within the femoral, popliteal and calf veins with no intraluminal thrombus demonstrated. The saphenous vein is patent. IMPRESSION: No evidence of right lower extremity DVT. Electronically signed by: Dhaval Guevara M.D. 01/06/2017 6:27 AM Dictated Date/Time: 01/06/2017 6:26 AM
--- NOTE | 2017-01-06 06:32 | DIAGNOSTIC IMAGING REPORT ---
CHEST ONE VIEW PORTABLE CLINICAL HISTORY: cough COMPARISON STUDY: 09/03/2016 FINDINGS: The right-sided PICC catheter has been removed. The heart is at the upper limits of normal in size. There is no failure. There is no focal pulmonary consolidation. There are no pleural effusions.[ IMPRESSION: AP portable study. No acute findings. Electronically signed by: Dhaval Guevara M.D. 01/06/2017 6:31 AM Dictated Date/Time: 01/06/2017 6:30 AM
--- NOTE | 2017-01-06 06:43 | DIAGNOSTIC IMAGING REPORT ---
RIGHT ANKLE MIN 3 VIEWS ROUTINE CLINICAL HISTORY: Right ankle pain and edema COMPARISON: None. DISCUSSION: No acute fractures are visualized. There is lateral soft tissue swelling. There is a corticated ossicle at the level of the distal fibular tip. This is felt to be old. There is a medial patellar spur. There is a plantar calcaneal spur. There are no erosive or destructive changes. IMPRESSION: Soft tissue swelling and degenerative change. No acute fractures. Electronically signed by: Dhaval Guevara M.D. 01/06/2017 6:42 AM Dictated Date/Time: 01/06/2017 6:41 AM
[2017-01-06 06:49] LABS: BUN/CREATININE RATIO 20.5 (10-20); CALCIUM 8.9 mg/dl (8.5-10.1); CREATININE 1.1 mg/dl (0.60-1.20); POTASSIUM 4.2 mmol/L (3.5-5.1)
[2017-01-06 07:18] VITALS: O2SAT 95
[2017-01-06] MEDS ORDERED: SODIUM CHLORIDE 0.9% IV STA (07:46)
[2017-01-06] MEDS ORDERED: VANCOMYCIN IV STA (07:46)
[2017-01-06] MEDS ORDERED: OXYCODONE HCL IR 5 MG TAB (IMMEDIATE RELEASE) PO STA (07:52)
[2017-01-06] MEDS ORDERED: VANCOMYCIN INJ 1,750 MG in SODIUM CHLORIDE 0.9% 500ML 500 ML IV STA (07:56)
[2017-01-06 08:36] LABS: MANUAL MICROSCOPIC REQUIRED? NO; REVIEW REQ? NO; URINE APPEARANCE CLEAR (CLEAR); URINE BILIRUBIN NEG (NEG); URINE COLOR YELLOW; URINE EPITHELIAL CELL AUTO >30 /lpf (0-5); URINE NITRITE NEG (NEG); URINE SPECIFIC GRAVITY 1.026 (1.000-1.030); UROBILINOGEN NEG (NEG); ZZUR CULT IF INDIC CLEAN CATCH YES
[2017-01-06] MEDS ORDERED: ALUMINUM/MAGNESIUM/SIMETH (MAALOX MAX) 30 ML UDC PO PRN (09:15)
[2017-01-06] MEDS ORDERED: ONDANSETRON INJ 2 MG/ML 2 ML VIAL IV PRN (09:15)
[2017-01-06] MEDS ORDERED: OXYCODONE HCL IR 5 MG TAB (IMMEDIATE RELEASE) PO PRN (09:15)
[2017-01-06] MEDS ORDERED: GLUCOSE 40% GEL 15 GM TUBE PO PRN (09:15)
[2017-01-06] MEDS ORDERED: GLUCOSE 10 TABS/TUBE PO PRN (09:15)
[2017-01-06] MEDS ORDERED: MAGNESIUM HYDROXIDE SUSP 30 ML UDC PO PRN (09:15)
[2017-01-06] MEDS ORDERED: GLUCAGON FOR INJ 1 MG VIAL SQ PRN (09:15)
[2017-01-06] MEDS ORDERED: DEXTROSE 50% 50 ML SYR IV PRN (09:15)
[2017-01-06] MEDS ORDERED: TPRSR/100 PO (09:34)
[2017-01-06] MEDS ORDERED: ACET1CAP19 PO (09:34)
[2017-01-06] MEDS ORDERED: NITROGLYCERIN 0.4 MG SL PER TAB CHARGE UT PRN (09:45)
[2017-01-06] MEDS ORDERED: PIPERACILL/TAZOBAC CONSULT ACTIVE PRN (09:45)
[2017-01-06] MEDS ORDERED: PIPERACILL/TAZOBAC IV 4.5 GM in DEXTROSE 5% 100ML IV ONE (09:45)
[2017-01-06] MEDS ORDERED: ALBUTEROL HFA 8 GM INHALER INH PRN (09:45)
[2017-01-06] MEDS ORDERED: PIPERACILLIN/TAZOBACTAM 4.5 GM/100ML D5W ONE (09:54)
[2017-01-06] MEDS ORDERED: POLYETHYLENE (MIRALAX) 17 GM PACK PO PRN (10:00)
--- NOTE | 2017-01-06 10:03 | History and Physical ---
History & Physical Date & Time of Service: Jan 06, 2017 at 09:39 Chief Complaint: Rt Ankle Swollen,Rt Calf Swollen Severe Pain Primary Care Physician: Norberto Anderson MD History of Present Illness Source: patient, clinic records, hospital records This is a 56 y/o female with a history of HI, HTN, HLD, DM II, asthma, hypothyroidism, depression, migraines, chronic back pain and GERD who presented to the ED on 01/06 with worsening swelling, redness, and pain in the right lower extremity. The patient states that she has a history of MRSA and cellulitis in the past, and that her current discomfort feels similar. She describes an aching pain in her posterior and medial knee bilaterally, RLE>LLE. She admits to some chills at home but denies feeling overtly feverish. She did have some nausea and vomiting 2 days ago. The patient also notes a productive cough with yellowish sputum and some wheezing, but she states that she has seasonal allergies around this time of year, so this is not unusual. She also complains of hoarseness. The patient admits to feeling very anxious as she is concerned about her son and being in the hospital in general. The patient denies fevers, sweats, chest pain, palpitations, claudication, shortness of breath, abdominal pain, dysuria, hematuria, urinary retention, paralysis, weakness, numbness and tingling. Past Medical/Surgical History Medical Problems: (1) Abdominal pain Status: Resolved (2) ELIO (acute kidney injury) Status: Resolved (3) Anxiety State Nos Status: Chronic (4) Asthma Status: Chronic (5) Back pain Status: Resolved (6) Back pain Status: Resolved (7) CHI (closed head injury) Status: Resolved (8) Contusion of multiple sites Status: Resolved (9) Contusion of multiple sites Status: Resolved (10) Contusion of third finger, right Status: Resolved (11) Degenerative arthritis of knee Status: Chronic (12) Dehydration Status: Resolved (13) Depressive Disorder Nec Status: Chronic (14) Diab Niyah Wo Compl, Type Ii Or Unspec Type, Not Uncntrld Status: Chronic (15) Esophageal Reflux Status: Chronic (16) Fall Status: Resolved (17) Fall due to slipping on ice or snow Status: Resolved (18) Foot pain Status: Resolved (19) Hx-Venous Thrombosis&Embolism Status: Chronic (20) Hyperlipidemia Nec/Nos Status: Chronic (21) Hypertension Status: Chronic (22) Hypotension Status: Resolved (23) Hypotension Status: Resolved (24) Hypothyroidism Nos Status: Chronic (25) Knee contusion Status: Resolved (26) Left wrist pain Status: Resolved (27) Leukocytosis Status: Resolved (28) Lumbar Disc Displacement Status: Chronic (29) Lumbar strain Status: Resolved (30) Lumbosacral Neuritis Nos Status: Chronic (31) Morbid Obesity Status: Chronic (32) Nausea, vomiting, and diarrhea Status: Resolved (33) Osteoporosis Nos Status: Chronic (34) Post concussion syndrome Status: Resolved (35) Right flank pain Status: Resolved (36) Splenosis Status: Chronic Surgical Problems: (1) Hx of appendectomy Status: Resolved (2) Hx of hernia repair Status: Resolved Family History Asthma Diabetes mellitus FHx: cancer (skin) FHx: heart failure Gallbladder disease Heart disease Hypertension Kidney stones Social History Smoking Status: Former Smoker (quit in 1991) Smokeless Tobacco Use: No Alcohol Use: none Drug Use: none Marital Status: single Housing status: lives with family (with son) Occupational Status: unemployed Immunizations History of Influenza Vaccine: No Influenza Vaccine Date: Jan 07, 2013 History of Tetanus Vaccine?: Unknown History of Pneumococcal: Unknown Pneumococcal Date: Jan 08, 2012 History of Hepatitis B Vaccine: Unknown Multi-Drug Resistant Organisms History of MDRO: Yes Type of MDRO: MRSA Allergies Coded Allergies: Aspirin (Verified Allergy, Severe, SHORT OF BREATH, 01/06/17) Cephalexin (Verified Allergy, Severe, EDEMA OF FACE,LIPS,TONGUE, 01/06/17) Ketorolac Tromethamine (Verified Allergy, Severe, SHORTNESS OF BREATH, 03/14) Latex2 -Systemic Allergic Response (Verified Allergy, Severe, DIFFICULTY BREATHING, 01/06/17) NSAIDs (Verified Allergy, Severe, SHORT OF BREATH, 01/06/17) Sulfa Antibiotics (Verified Allergy, Unknown, UNKNOWN- HAD RXN WHEN LITTLE , 01/06/17) Simvastatin (Verified Adverse Reaction, Intermediate, myalgias, 01/06/17) Metformin (Verified Adverse Reaction, Mild, GI SYMPTOMS, 01/06/17) Home Medications Scheduled Amitriptyline Hcl (Amitriptyline Hcl), 50 MG PO HS Clopidogrel (Plavix), 75 MG PO DAILY Fluoxetine (Prozac), 40 MG PO HS Fluticasone Prop/Salmeterol (Advair Diskus 500/50 60 Dose), 1 PUFF INH BID Gabapentin (Neurontin), 800 MG PO TID Levothyroxine Sodium (Synthroid), 150 MCG PO QAM Metoprolol Succinate (Metoprolol Succinate ER), 100 MG PO DAILY Montelukast Sodium (Singulair), 10 MG PO QAM Omeprazole (Prilosec), 40 MG PO QAM Rosuvastatin Calcium (Crestor), 1 TAB PO DAILY Scheduled PRN Sbwffdwbpztdx-Quecfjulzdcsa-Qz (Isometheptene/Dichloralph 325-65-100 mg), 1 CAP PO Q4H PRN for Migraine Albuterol Hfa (Ventolin Hfa), 2 PUFFS INH QID PRN for Wheezing Albuterol Sulf (Albuterol Sulfate), 1 DOSE NEB Q4 PRN for Wheezing Loratadine (Claritin), 10 MG PO DAILY PRN for Allergy Symptoms Nitroglycerin (Nitrostat), 0.4 MG UT PRN PRN for chest pain Oxycodone Ir (Roxicodone Ir), 30 MG PO Q6 PRN for Pain Review of Systems Constitutional: + chills, No fever, No sweats Eyes: No worsening of vision, No eye pain, No diplopia ENT: + problem reported (hoarseness), No hearing loss, No sore throat Respiratory: + cough, + sputum, + wheezing, No shortness of breath Cardiovascular: No chest pain, No claudication, No palpitations Abdomen: + nausea, + vomiting, No pain Musculoskeletal: + swelling, + calf pain, No joint pain Genitourinary - Female: No dysuria, No urinary retention, No hematuria Neurologic: No paralysis, No weakness, No numbness/tingling Integumentary: + color change (erythema medial aspect lower legs bilaterally R> L), No rash, No itch Physical Exam Vital Signs Date Time Temp Pulse Resp B/P (MAP) Pulse Ox O2 Delivery O2 Flow Rate FiO2 01/06/17 08:00 120 21 01/06/17 07:34 124 01/06/17 07:18 37.7 119 22 125/83 95 Room Air 01/06/17 07:16 125/83 01/06/17 05:07 99 18 150/82 96 01/06/17 02:55 37.0 112 18 149/94 95 Room Air General appearance: +Morbidly obese. Well-developed, well-nourished, no apparent distress Head: Normocephalic, atraumatic Eyes: Normal inspection, PERRL, EOMI ENT: Normal ENT inspection, hearing grossly normal, pharynx normal Neck: Supple, no JVD, trachea midline Respiratory/Chest: Lungs clear to auscultation, normal breath sounds, no respiratory distress Cardiovascular: +Tachycardic. Regular rhythm, no gallop, no murmur Abdomen/GI: Normal bowel sounds, non-tender, soft Extremities/Musculoskeletal: +Erythema in posterior/medial proximal calf and knee bilaterally, R>L, warm to the touch. Erythematous areas TTP, especially on right medial leg. Increased non-pitting edema RLE. Neurological/Psych: +Emotionally labile. Pt intermittently becomes very anxious and is concerned about getting in touch with her teenage son. Also sad/ anxious about being the hospital as her father recently passed. Alert, oriented x 3 Skin: +Erythema as above. Warm/dry, no rash Diagnostics Laboratory Results Results Past 24 Hours Test 01/06/17 03:15 01/06/17 06:14 Range/Units Urine Color YELLOW Urine Appearance CLEAR CLEAR Urine pH 5.0 4.5-7.5 Urine Specific [place] 1.026 1.000-1.030 Urine Protein NEG NEG Urine Glucose (UA) NEG NEG Urine Ketones NEG NEG Urine Occult Blood NEG NEG Urine Nitrite NEG NEG Urine Bilirubin NEG NEG Urine Urobilinogen NEG NEG Urine Leukocyte Esterase TRACE NEG Urine WBC (Auto) 10-30 0-5 /hpf Urine RBC (Auto) 0-4 0-4 /hpf Urine Hyaline Casts (Auto) 1-5 0-5 /lpf Urine Epithelial Cells (Auto) >30 0-5 /lpf Urine Bacteria (Auto) 1+ NEG White Blood Count 22.05 4.8-10.8 K/uL Red Blood Count 4.63 4.2-5.4 M/uL Hemoglobin 12.6 12.0-16.0 g/dL Hematocrit 41.0 37-47 % Mean Corpuscular Volume 88.6 80-100 fL Mean Corpuscular Hemoglobin 27.2 25-34 pg Mean Corpuscular Hemoglobin Concent 30.7 32-36 g/dl Platelet Count 415 130-400 K/uL Mean Platelet Volume 9.8 7.4-10.4 fL Neutrophils (%) (Auto) 73.4 % Lymphocytes (%) (Auto) 13.0 % Monocytes (%) (Auto) 8.8 % Eosinophils (%) (Auto) 4.0 % Basophils (%) (Auto) 0.5 % Neutrophils # (Auto) 16.16 1.4-6.5 K/uL Lymphocytes # (Auto) 2.87 1.2-3.4 K/uL Monocytes # (Auto) 1.94 0.11-0.59 K/uL Eosinophils # (Auto) 0.89 0-0.5 K/uL Basophils # (Auto) 0.12 0-0.2 K/uL RDW Standard Deviation 45.7 36.4-46.3 fL RDW Coefficient of Variation 14.1 11.5-14.5 % Immature Granulocyte % (Auto) 0.3 % Immature Granulocyte # (Auto) 0.07 0.00-0.02 K/uL Sodium Level 134 136-145 mmol/L Potassium Level 4.2 3.5-5.1 mmol/L Chloride Level 98 98-107 mmol/L Carbon Dioxide Level 29 21-32 mmol/L Anion Gap 7.0 3-11 mmol/L Blood Urea Nitrogen 23 7-18 mg/dl Creatinine 1.10 0.60-1.20 mg/dl Est Creatinine Clear Calc Drug Dose 64.4 ml/min Estimated GFR () 64.1 Estimated GFR (Non- 55.3 BUN/Creatinine Ratio 20.5 10-20 Random Glucose 140 70-99 mg/dl Calcium Level 8.9 8.5-10.1 mg/dl Pro-B-Type Natriuretic Peptide 121 0-900 pg/ml Microbiology Results 01/06/17 Blood Culture, Received Pending 01/06/17 Blood Culture, Received Pending 01/06/17 Urine Culture, Received Pending Diagnostic Radiology Reviewed the following studies and agree with interpretation as follows: Patient Name: GEOVANY CARBAJAL Unit Number: [id number] Dictated: 01/06/17625 Transcribed: 01/06/17625 ARG Printed Date/Time: [~ rep prt dt]/[~ rep prt tm] [~ rep ct labl] - [~ rep ct ivnm] [facility] [place] [address] Dictated: 01/06/17625 Transcribed: 01/06/17625 ARG Printed Date/Time: [~ rep prt dt]/[~ rep prt tm] [~ rep ct labl] - [~ rep ct ivnm] Patient: GEOVANY CARBAJAL Address1: [address] [place] [address] Rec: [id number] Address2: Acct ID: [id number] [facility] Zip: [place] [address] Date: 1960 Sex: F Room/Bed: Ref Phy: Norberto Anderson MD SC: BRENNAN Att Phy: Report #: [id number] Isabel Phy: Norberto Anderson MD Test: VDLEU Admit Phy: Ski Technician: JV Interpreting Phy: Dhaval Guevara M.D. Diagnosis: RT ANKLE SWOLLEN,RT CALF SWOLLEN SEVERE PAIN Ordering Phy: Keira Uribe DO Service Date: 01/06/17 Admit Date: 01/06/17 MNE: PWRSCRIBE CONF: DICTATED BY: Dhaval Guevara M.D.]] CC: Norberto Anderson MD Pheasant, Karen S., DO Endcc: [~ rep ct add3]] ULTRASOUND RIGHT VENOUS DOPP LOWER EXT UNILAT CLINICAL HISTORY: Right leg pain and edema COMPARISON STUDY: No previous studies for comparison. FINDINGS: Real-time and color flow Doppler imaging were performed. Flow was seen within the femoral, popliteal and calf veins with no intraluminal thrombus demonstrated. The saphenous vein is patent. IMPRESSION: No evidence of right lower extremity DVT. Electronically signed by: Dhaval Guevara M.D. 01/06/2017 6:27 AM Dictated Date/Time: 01/06/2017 6:26 AM The status of this report is Signed. Draft = Not yet reviewed or approved by Radiologist. Signed = Reviewed and approved by Radiologist. <AttendingPhy></AttendingPhy> <FamilyPhy>Norberto Anderson MD</FamilyPhy> < PrimaryPhy>Norberto Anderson MD</PrimaryPhy> <UnitNumber>[id number]</UnitNumber > <VisitNumber>[id number]</VisitNumber> <PatientName>GEOVANY CARBAJAL</ PatientName> <DateOfBirth>1960</DateOfBirth> <Location>[facility]</Location> < ServiceDate>01/06/17</ServiceDate> <MNE>ESINDI</MNE> <OrderingPhy>Pheasant, Keira S DO</OrderingPhy> <OrderingPhyMNE>f rep ord dr collins</OrderingPhyMNE> < DictatingPhyMNE>f rep dict dr collins</DictatingPhyMNE> <CCListMNE>f rep ct mne</ CCListMNE> <AdmittingPhyMNE>f pt admit dr collins</AdmittingPhyMNE> <AttendingPhyMNE >f pt attend dr collins</AttendingPhyMNE> <ConsultingPhyMNE>f pt consult dr collins</ConsultingPhyMNE> <FamilyPhyMNE>f pt fam dr collins</FamilyPhyMNE> <OtherPhyMNE>f pt other dr collins</OtherPhyMNE> < PrimaryPhyMNE>f pt prim care dr collins</PrimaryPhyMNE> <ReferringPhyMNE>f pt referring dr collins</ReferringPhyMNE> Patient Name: GEOVANY CARBAJAL Unit Number: [id number] Dictated: 01/06/17629 Transcribed: 01/06/17629 ARG Printed Date/Time: [~ rep prt dt]/[~ rep prt tm] [~ rep ct labl] - [~ rep ct ivnm] [facility] [place] [address] Dictated: 01/06/17629 Transcribed: 01/06/17629 ARG Printed Date/Time: [~ rep prt dt]/[~ rep prt tm] [~ rep ct labl] - [~ rep ct ivnm] Patient: GEOVANY CARBAJAL Address1: [address] [place] [address] Rec: [id number] Address2: Acct ID: [id number] [facility] Zip: [place] [address] Date: 1960 Sex: F Room/Bed: Ref Phy: Norberto Anderson MD SC: BRENNAN Att Phy: Report #: [id number] Isabel Phy: Norberto Anderson MD Test: CXR1P Admit Phy: Ski Technician: HEATHER Interpreting Phy: Dhaval Guevara M.D. Diagnosis: RT ANKLE SWOLLEN,RT CALF SWOLLEN SEVERE PAIN Ordering Phy: Keira Uribe DO Service Date: 01/06/17 Admit Date: 01/06/17 MNE: PWRSCRIBE CONF: DICTATED BY: Dhaval Guevara M.D.]] CC: Norberto Anderson MD Pheasant, Karen S., DO Endcc: [~ rep ct add3]] CHEST ONE VIEW PORTABLE CLINICAL HISTORY: cough COMPARISON STUDY: 09/03/2016 FINDINGS: The right-sided PICC catheter has been removed. The heart is at the upper limits of normal in size. There is no failure. There is no focal pulmonary consolidation. There are no pleural effusions.[ IMPRESSION: AP portable study. No acute findings. Electronically signed by: Dhaval Guevara M.D. 01/06/2017 6:31 AM Dictated Date/Time: 01/06/2017 6:30 AM The status of this report is Signed. Draft = Not yet reviewed or approved by Radiologist. Signed = Reviewed and approved by Radiologist. <AttendingPhy></AttendingPhy> <FamilyPhy>Norberto Anderson MD</FamilyPhy> < PrimaryPhy>Norberto Anderson MD</PrimaryPhy> <UnitNumber>[id number]</UnitNumber > <VisitNumber>[id number]</VisitNumber> <PatientName>SOLOMONALINAGEOVANY T</ PatientName> <DateOfBirth>1960</DateOfBirth> <Location>[facility]</Location> < ServiceDate>01/06/17</ServiceDate> <MNE>ESINDI</MNE> <OrderingPhy>Keira Uribe DO</OrderingPhy> <OrderingPhyMNE>f rep ord dr collins</OrderingPhyMNE> < DictatingPhyMNE>f rep dict dr collins</DictatingPhyMNE> <CCListMNE>f rep ct mne</ CCListMNE> <AdmittingPhyMNE>f pt admit dr collins</AdmittingPhyMNE> <AttendingPhyMNE >f pt attend dr collins</AttendingPhyMNE> <ConsultingPhyMNE>f pt consult dr collins</ConsultingPhyMNE> <FamilyPhyMNE>f pt fam dr collins</FamilyPhyMNE> <OtherPhyMNE>f pt other dr collins</OtherPhyMNE> < PrimaryPhyMNE>f pt prim care dr collins</PrimaryPhyMNE> <ReferringPhyMNE>f pt referring dr collins</ReferringPhyMNE> Patient Name: GEOVANY CARBAJAL Unit Number: [id number] Dictated: 01/06/17640 Transcribed: 01/06/17640 ARG Printed Date/Time: [~ rep prt dt]/[~ rep prt tm] [~ rep ct labl] - [~ rep ct ivnm] [facility] [place] [address] Dictated: 01/06/17640 Transcribed: 01/06/17640 ARG Printed Date/Time: [~ rep prt dt]/[~ rep prt tm] [~ rep ct labl] - [~ rep ct ivnm] Patient: GEOVANY CARBAJAL Address1: [address] [place] [address] Rec: [id number] Address2: Acct ID: [id number] [facility] Zip: [place] [address] Date: 1960 Sex: F Room/Bed: Ref Phy: Norberto Anderson MD SC: BRENNAN Att Phy: Report #: [id number] Isabel Phy: Norberto Anderson MD Test: ANK Admit Phy: Ski Technician: TRUBLY Interpreting Phy: Dhaval Guevara M.D. Diagnosis: RT ANKLE SWOLLEN,RT CALF SWOLLEN SEVERE PAIN Ordering Phy: Keira Uribe DO Service Date: 01/06/17 Admit Date: 01/06/17 MNE: PWRSCRIBE CONF: DICTATED BY: Dhaval Guevara M.D.]] CC: Norberto Anderson MD Pheasant, Karen S., Endcc: [~ rep ct add3]] RIGHT ANKLE MIN 3 VIEWS ROUTINE CLINICAL HISTORY: Right ankle pain and edema COMPARISON: None. DISCUSSION: No acute fractures are visualized. There is lateral soft tissue swelling. There is a corticated ossicle at the level of the distal fibular tip. This is felt to be old. There is a medial patellar spur. There is a plantar calcaneal spur. There are no erosive or destructive changes. IMPRESSION: Soft tissue swelling and degenerative change. No acute fractures. Electronically signed by: Dhaval Guevara M.D. 01/06/2017 6:42 AM Dictated Date/Time: 01/06/2017 6:41 AM The status of this report is Signed. Draft = Not yet reviewed or approved by Radiologist. Signed = Reviewed and approved by Radiologist. <AttendingPhy></AttendingPhy> <FamilyPhy>Norberto Anderson MD</FamilyPhy> < PrimaryPhy>Norberto Anderson MD</PrimaryPhy> <UnitNumber>[id number]</UnitNumber > <VisitNumber>[id number]</VisitNumber> <PatientName>ALINA CARBAJALIN Yanci</ PatientName> <DateOfBirth>1960</DateOfBirth> <Location>[facility]</Location> < ServiceDate>01/06/17</ServiceDate> <MNE>ESINDI</MNE> <OrderingPhy>Keira Uribe DO</OrderingPhy> <OrderingPhyMNE>f rep ord dr collins</OrderingPhyMNE> < DictatingPhyMNE>f rep dict dr collins</DictatingPhyMNE> <CCListMNE>f rep ct mne</ CCListMNE> <AdmittingPhyMNE>f pt admit dr collins</AdmittingPhyMNE> <AttendingPhyMNE >f pt attend dr collins</AttendingPhyMNE> <ConsultingPhyMNE>f pt consult dr collins</ConsultingPhyMNE> <FamilyPhyMNE>f pt fam dr collins</FamilyPhyMNE> <OtherPhyMNE>f pt other dr collins</OtherPhyMNE> < PrimaryPhyMNE>f pt prim care dr collins</PrimaryPhyMNE> <ReferringPhyMNE>f pt referring dr collins</ReferringPhyMNE> EKG Reviewed the following studies and agree with interpretation as follows: 124 bpm, sinus tachycardia Impression Assessment and Plan 56 y/o female with a history of HI, HTN, HLD, DM II, asthma, hypothyroidism, depression, migraines, chronic back pain and GERD who presented to the ED on with worsening swelling, redness, and pain in the right lower extremity. Pt afebrile but tachycardic in ED, BP stable and non-hypoxic. WBC 22.05. RLE venous Doppler ultrasound negative for DVT. CXR no acute disease. R ankle x- ray soft tissue swelling, no fractures. Pt started on vancomycin in ED. Sepsis secondary to bilateral lower extremity cellulitis--pt w/history of MRSA -Admit to med/surg -Check lactic acid now -Check venous Doppler ultrasound of LLE to r/o DVT -Vancomycin and Zosyn IV -Blood cultures pending -UA appears to be contamination, urine culture pending -Continue home medications for chronic pain plus oxycodone IR 5 mg PO q4h prn pain -Zofran 4 mg IV q6h prn nausea -NSS at 150 cc/hr for now due to sepsis. BUN elevated at 23. H/o HI, HTN, HLD--stable -Recent NSTEMI 08/30/16 thought to be stress-induced, cardiac cath showed mild non -obstructive CAD -Continue Plavix 75 mg PO BID, Toprol 100 mg PO hs, and Crestor 20 mg PO qd DM II--last HgbA1c checked here was 7.7 on 11/26/15 -Pt recently stopped taking Actos and has been diet controlled -Insulin sliding scale -Check BSGs q ac and qhs -Recheck HgbA1c Asthma, seasonal allergies -Continue Singulair 10 mg PO qd, Claritin 10 mg PO qd, Advair 1 puff inh BID and albuterol prn Hypothyroidism -Continue Synthroid 150 mcg PO qd Anxiety and depression -Continue amitriptyline 50 mg PO qhs and Prozac 40 mg PO qd Migraines -Continue Midrin 1 capsule q4h prn migraine Chronic back pain -Continue oxycodone 30 mg PO q6h, gabapentin 800 mg PO TID, and amitriptyline GERD -Prilosec converted to Protonix 40 mg PO qd DVT prophylaxis -Enoxaparin 40 mg SC q24h Code Status -Level I, FULL RESUSCITATION STATUS Level of Care Med/Surg Resuscitation Status FULL RESUSCITATION VTE Prophylaxis VTE Risk Assessment Done? Y/N: Yes Risk Level: Moderate Given or contraindicated: Enoxaparin (Lovenox)SQ Reviewed: Pt Seen/Exam by Me History Physician Boat Joiner Supervision Note: I interviewed and examined the patient. Discussed with ZEINA Moore and agree with findings and plan as documented in the note. Any exceptions or clarifications are listed here: Pt admitted with bilateral LE cellulitis. Bilat Dopplers neg for DVT. WBC count elevated, tachycardia has now resolved with IVFs and treatment of infection. Has a h/o MRSA leg wound Vitals reviewed Morbidly obese, NAD, pleasant RRR no mgr CTAB no wcr Abd +BS soft Ext bilateral medial leg and thighs with erythema, warmth and tenderness, mild edema ankles R>L, a few scattered excoriated scabs on legs, left pinky oe with very mild edema but no tenderness 56 yo female with a h/o Type 2 diabetes, Hypertension, Hyperlipidemia, Hypothyroidism, GERD, Chronic pain syndrome and opioid dependence, Neuropathy, Asthma , previous Right leg wound infected with MRSA, Chronic lower back pain, degenerative disc disease lumbar spine with old compression fractures, Small bilateral renal cysts, Depression/anxiety, and a stree-induced CM, here with bilateral LE cellulitis and sepsis. -treat with IVFs, broad spectrum abx, pain meds -follow and transition to po abx in 1-2 days, follow WBC count, check ESR, Crp in the AM Documented By: Marina Gallardo
--- NOTE | 2017-01-06 10:10 | DIAGNOSTIC IMAGING REPORT ---
ULTRASOUND LEFT VENOUS DOPP LOWER EXT UNILAT CLINICAL HISTORY: redness, swelling, pain, h/o DVT COMPARISON STUDY: No previous studies for comparison. FINDINGS: Real-time and color flow Doppler imaging were performed. Flow was seen within the femoral, popliteal and calf veins with no intraluminal thrombus demonstrated. The saphenous vein is patent. The patient would not tolerate compression of the distal superficial femoral vein due to pain. IMPRESSION: No evidence of left lower extremity DVT. Electronically signed by: Dhaval Guevara M.D. 01/06/2017 10:08 AM Dictated Date/Time: 01/06/2017 10:08 AM
[2017-01-06 10:45] VITALS: BP 115/77; PULSE 119; TEMP 37.7; O2SAT 93
[2017-01-06 11:06] VITALS: BMI 46.2
[2017-01-06 11:17] LABS: ESTIMATED AVERAGE GLUCOSE 174 mg/dl; HA1C FLAG Normal (Normal)
[2017-01-06 11:26] VITALS: BP 146/75; PULSE 123; TEMP 37.6; O2SAT 91
[2017-01-06 11:27] LABS: INR 0.9 (0.9-1.1); PARTIAL THROMBOPLASTIN RATIO 1.1; PROTHROMBIN TIME (PATIENT) 9.9 SECONDS (9.0-12.0)
[2017-01-06] MEDS ORDERED: VANCOMYCIN CONSULT ACTIVE PRN (11:30)
[2017-01-06] MEDS: INSULIN ASPART 100 UNITS/ML 3 ML PEN SC SCH ×3 (11:55→21:12)
[2017-01-06] MEDS: SODIUM CHLORIDE 0.9% 1000ML 1,000 ML IV SCH ×2 (12:11→18:02)
[2017-01-06] MEDS: OXYCODONE HCL IR 30 MG TAB (IMMEDIATE RELEASE) PO SCH ×2 (12:11→18:03)
[2017-01-06] MEDS: ACETAMINOPHEN 325 MG TAB PO PRN (12:12)
--- NOTE | 2017-01-06 12:15 | Pharmacy Progress Note ---
Pharmacy Antibiotic Consult Date of Service: Jan 06, 2017. Pharmacy Dosing Scope Pharmacy is consulted to initiate Vanco/Zosyn IV dosing therapy, order appropriate labs and adjust drug dose/frequency. Subjective The patient is a 56 year old female admitted on Jan 06, 2017 at 09:27. Objective Height (Feet): 5 Height (Inches): 2.00 Weight (Kilograms): 114.500 Lab Results (24hrs): Test 01/06/17 03:15 01/06/17 06:14 01/06/17 10:37 01/06/17 11:19 Urine Color YELLOW Urine Appearance CLEAR (CLEAR) Urine pH 5.0 (4.5-7.5) Urine Specific [place] 1.026 (1.000-1.030) Urine Protein NEG (NEG) Urine Glucose (UA) NEG (NEG) Urine Ketones NEG (NEG) Urine Occult Blood NEG (NEG) Urine Nitrite NEG (NEG) Urine Bilirubin NEG (NEG) Urine Urobilinogen NEG (NEG) Urine Leukocyte Esterase TRACE (NEG) Urine WBC (Auto) 10-30 /hpf (0-5) Urine RBC (Auto) 0-4 /hpf (0-4) Urine Hyaline Casts (Auto) 1-5 /lpf (0-5) Urine Epithelial Cells (Auto) >30 /lpf (0-5) Urine Bacteria (Auto) 1+ (NEG) White Blood Count 22.05 K/uL (4.8-10.8) Red Blood Count 4.63 M/uL (4.2-5.4) Hemoglobin 12.6 g/dL (12.0-16.0) Hematocrit 41.0 % (37-47) Mean Corpuscular Volume 88.6 fL (80-100) Mean Corpuscular Hemoglobin 27.2 pg (25-34) Mean Corpuscular Hemoglobin Concent 30.7 g/dl (32-36) Platelet Count 415 K/uL (130-400) Mean Platelet Volume 9.8 fL (7.4-10.4) Neutrophils (%) (Auto) 73.4 % Lymphocytes (%) (Auto) 13.0 % Monocytes (%) (Auto) 8.8 % Eosinophils (%) (Auto) 4.0 % Basophils (%) (Auto) 0.5 % Neutrophils # (Auto) 16.16 K/uL (1.4-6.5) Lymphocytes # (Auto) 2.87 K/uL (1.2-3.4) Monocytes # (Auto) 1.94 K/uL (0.11-0.59) Eosinophils # (Auto) 0.89 K/uL (0-0.5) Basophils # (Auto) 0.12 K/uL (0-0.2) RDW Standard Deviation 45.7 fL (36.4-46.3) RDW Coefficient of Variation 14.1 % (11.5-14.5) Immature Granulocyte % (Auto) 0.3 % Immature Granulocyte # (Auto) 0.07 K/uL (0.00-0.02) Prothrombin Time 9.9 SECONDS (9.0-12.0) Prothromb Time International Ratio 0.9 (0.9-1.1) Activated Partial Thromboplast Time 29.5 SECONDS (21.0-31.0) Partial Thromboplastin Ratio 1.1 Sodium Level 134 mmol/L (136-145) Potassium Level 4.2 mmol/L (3.5-5.1) Chloride Level 98 mmol/L (98-107) Carbon Dioxide Level 29 mmol/L (21-32) Anion Gap 7.0 mmol/L (3-11) Blood Urea Nitrogen 23 mg/dl (7-18) Creatinine 1.10 mg/dl (0.60-1.20) Est Creatinine Clear Calc Drug Dose 64.4 ml/min Estimated GFR () 64.1 Estimated GFR (Non- 55.3 BUN/Creatinine Ratio 20.5 (10-20) Random Glucose 140 mg/dl (70-99) Calcium Level 8.9 mg/dl (8.5-10.1) Pro-B-Type Natriuretic Peptide 121 pg/ml (0-900) Estimated Average Glucose 174 mg/dl Hemoglobin A1c 7.7 % (4.5-5.6) Lactic Acid Level 1.7 mmol/L (0.4-2.0) Bedside Glucose 156 mg/dl (70-90) Micro Results: Item Value Date Time Blood Culture Received 01/06/17 0731 Blood Pending Blood Culture Received 01/06/17 0715 Blood Pending Urine Culture Received 01/06/17 0315 Urine , Clean Catch Pending Assessment & Plan Ms. Cummings is a 56yo F known to the pharmacy kinetic team. She p/w fever and recurrent cellulitis. Currently, she has a qSOFA score of 0. 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 Her renal fxn looks to be below her baseline. Current pt population p'kinetics: t1/2=12hrs, ke= 0.0575, Vd=0.6. Her habitus is indicative of Vanco accumulation. I expect her renal fxn to improve, if it fails to improve or worsens the vanco dose or interval may need to be adjusted. Vanco: * Vanco loading dose given in ED Vanco 1750mg (15.2mg/kg) x1 to achieve a peak of about 25mcg/mL * Set to receive Vanco maintenance dose of 1750mg q12 at 1800. I have started the MD earlier due to pt not receiving a complete LD and i expect her renal fxn to improve. * Vanco trough ordered prior to 4th maintenance dose on 01/08/17 @0530 * Goal trough until c/s's result will be 15-20mcg/mL. Zosyn: * Received Zosyn 4.5g 30 min infsn and set to receive EI Zosyn 4.5g q8, appropriate for habitus and eCrCl >20cc/min Pharmacy will continue to follow and will adjust dose/frequency as necessary. Thank you
[2017-01-06] MEDS: ENOXAPARIN 40 MG/0.4 ML SYR SQ SCH (13:59)
[2017-01-06] MEDS: FLUTICASONE/SALMETEROL (ADVAIR) 500/50 INH 14 PUFF INH SCH ×2 (14:00→21:07)
[2017-01-06] MEDS: GABAPENTIN 800 MG TAB PO SCH ×2 (14:00→21:09)
[2017-01-06] MEDS: LORATADINE 10 MG TAB PO SCH (14:01)
[2017-01-06] MEDS: CLOPIDOGREL BISULFATE 75 MG TAB PO SCH (14:02)
[2017-01-06] MEDS: ROSUVASTATIN CALCIUM 20 MG TAB PO SCH (14:02)
[2017-01-06] MEDS: PANTOprazole SOD 40 MG TAB PO SCH (14:03)
[2017-01-06 15:08] VITALS: BP 123/75; PULSE 100; TEMP 36.8; O2SAT 90
[2017-01-06] MEDS: PIPERACILL/TAZOBAC IV 4.5 GM in DEXTROSE 5% 100ML IV SCH (16:05)
[2017-01-06] MEDS ORDERED: NURSING VERBAL MED ORDER ONE (17:45)
[2017-01-06] MEDS: VANCOMYCIN INJ 1,750 MG in SODIUM CHLORIDE 0.9% 500ML 500 ML IV SCH (18:02)
[2017-01-06] MEDS ORDERED: VANCOMYCIN INJ 1,000 MG in SODIUM CHLORIDE 0.9% 250ML 250 ML IV SCH (21:00)
[2017-01-06] MEDS: FLUOXETINE HCL 20 MG CAP PO SCH (21:08)
[2017-01-06] MEDS: AMITRIPTYLINE HCL 25 MG TAB PO SCH (21:09)
[2017-01-06] MEDS: MONTELUKAST SOD 10 MG TAB PO SCH (21:10)
[2017-01-06] MEDS: METOPROLOL SUCC 50MG EXT REL TAB PO SCH (21:19)
[2017-01-06 21:20] VITALS: BP 116/79; PULSE 94
[2017-01-06 23:37] VITALS: BP 123/80; PULSE 98; TEMP 37.3; O2SAT 96
[2017-01-07] MEDS: PIPERACILL/TAZOBAC IV 4.5 GM in DEXTROSE 5% 100ML IV SCH ×4 (00:06→23:52)
[2017-01-07] MEDS: OXYCODONE HCL IR 30 MG TAB (IMMEDIATE RELEASE) PO SCH ×5 (00:07→23:53)
[2017-01-07] MEDS: VANCOMYCIN INJ 1,750 MG in SODIUM CHLORIDE 0.9% 500ML 500 ML IV SCH ×2 (05:36→18:03)
[2017-01-07] MEDS: SODIUM CHLORIDE 0.9% 1000ML 1,000 ML IV SCH ×2 (05:37→16:31)
[2017-01-07] MEDS: LEVOTHYROXINE 150 MCG TAB PO SCH (05:37)
[2017-01-07 07:38] LABS: HEMATOCRIT 33.5 % (37-47); MEAN CELL VOLUME 89.1 fL (80-100); MEAN CORPUSCULAR HEMOGLOBIN 27.7 pg (25-34); MEAN PLATELET VOLUME 9.4 fL (7.4-10.4); PLATELET COUNT 354 K/uL (130-400); RED BLOOD COUNT 3.76 M/uL (4.2-5.4); WHITE BLOOD COUNT 10.32 K/uL (4.8-10.8)
[2017-01-07 08:01] VITALS: BP 94/68; PULSE 83; TEMP 36.8; O2SAT 90
[2017-01-07] MEDS: INSULIN ASPART 100 UNITS/ML 3 ML PEN SC SCH ×4 (08:07→21:00)
[2017-01-07 08:12] LABS: BUN/CREATININE RATIO 16.4 (10-20); C-REACTIVE PROTEIN 7.37 mg/dl (0-0.29); CREATININE 0.81 mg/dl (0.60-1.20); POTASSIUM 3.7 mmol/L (3.5-5.1)
[2017-01-07 08:23] VITALS: BP 142/96; PULSE 84; TEMP 37; O2SAT 91
[2017-01-07] MEDS: GABAPENTIN 800 MG TAB PO SCH ×3 (08:43→20:20)
[2017-01-07] MEDS: ROSUVASTATIN CALCIUM 20 MG TAB PO SCH (08:43)
[2017-01-07] MEDS: FLUTICASONE/SALMETEROL (ADVAIR) 500/50 INH 14 PUFF INH SCH ×2 (08:43→20:19)
[2017-01-07] MEDS: LORATADINE 10 MG TAB PO SCH (08:43)
[2017-01-07] MEDS: CLOPIDOGREL BISULFATE 75 MG TAB PO SCH (08:44)
[2017-01-07] MEDS: OXYCODONE HCL IR 5 MG TAB (IMMEDIATE RELEASE) PO PRN ×2 (08:44→15:33)
[2017-01-07] MEDS: PANTOprazole SOD 40 MG TAB PO SCH (08:44)
[2017-01-07] MEDS: ENOXAPARIN 40 MG/0.4 ML SYR SQ SCH (09:19)
[2017-01-07 11:21] VITALS: BP 94/64; PULSE 85; TEMP 36.8; O2SAT 92
[2017-01-07 11:29] VITALS: Ht 157.5 cm; Wt 114.5 kg
[2017-01-07 15:06] VITALS: BP 126/76; PULSE 86; TEMP 37.1; O2SAT 95
--- NOTE | 2017-01-07 19:02 | DIAGNOSTIC IMAGING REPORT ---
RIGHT ELBOW 2 VIEWS HISTORY: fall, pain Right COMPARISON: None. FINDINGS: No definite fracture or dislocation. No definite joint effusion. Large osteophytes at the elbow consistent with degenerative change. Evaluation for fracture is suboptimal due to the large marginal osteophytes and portable study. Soft tissues are unremarkable. No radiopaque foreign bodies. IMPRESSION: No definite fracture or dislocation within the right elbow. No definite joint effusion. Consider follow-up radiograph in 2 weeks if the patient's right elbow pain continues to progress. Electronically signed by: Matteo Rojas M.D. 01/07/2017 7:00 PM Dictated Date/Time: 01/07/2017 6:54 PM
[2017-01-07] MEDS: MONTELUKAST SOD 10 MG TAB PO SCH (20:18)
[2017-01-07] MEDS: AMITRIPTYLINE HCL 25 MG TAB PO SCH (20:18)
[2017-01-07] MEDS: FLUOXETINE HCL 20 MG CAP PO SCH (20:20)
[2017-01-07] MEDS: METOPROLOL SUCC 50MG EXT REL TAB PO SCH (20:24)
[2017-01-07 20:27] VITALS: BP 145/97; PULSE 80
--- NOTE | 2017-01-07 22:55 | Hospitalist Progress Note ---
Hospitalist Progress Note Date of Service Jan 07, 2017. Subjective Pt evaluation today including: conversation w/ patient Patient crying today stating that she is scared after being told that she has positive blood cultures. She is having pain at the site of her peripheral IV and is requesting a PICC line which she will need anyway for long-term antibiotics. The pain in her legs is very bad and she is requesting something through the IV for pain. She also fell while trying to sit down on the toilet today, landed on her bottom, and hit her elbow on the floor. She is having right elbow pain but no pain anywhere else from the fall. Respiratory: No shortness of breath Cardiovascular: No chest pain All Other Systems: Reviewed and Negative Objective Vital Signs Date Time Temp Pulse Resp B/P (MAP) Pulse Ox O2 Delivery O2 Flow Rate FiO2 01/07/17 20:27 80 145/97 (113) 01/07/17 16:00 Room Air 01/07/17 15:06 37.1 86 18 126/76 (93) 95 01/07/17 11:21 36.8 85 16 94/64 (74) 92 Room Air 01/07/17 10:18 Room Air 01/07/17 10:16 Room Air 01/07/17 08:23 37.0 84 16 142/96 (111) 91 01/07/17 08:01 36.8 83 16 94/68 (77) 90 01/07/17 00:13 Room Air 01/06/17 23:37 37.3 98 20 123/80 (94) 96 Room Air Physical Exam General Appearance: no apparent distress (but is anxious and tearful), + obese Eyes: normal inspection, sclerae normal ENT: hearing grossly normal Neck: trachea midline Respiratory/Chest: lungs clear, normal breath sounds, no respiratory distress, no accessory muscle use Cardiovascular: regular rate, rhythm, no edema, no murmur Abdomen: normal bowel sounds, non tender, soft Extremities: + pertinent finding (erythema of the medial calves and thighs right greater than left, not much improved from yesterday, still exquisitely tender and warm to the touch, 1+ dorsalis pedis pulses bilaterally; right olecranon with exquisite tenderness, no crepitus or edema) Neurologic/Psychiatric: alert, + depressed affect Skin: warm/dry Laboratory Results Last 24 Hours Test 01/07/17 06:50 01/07/17 07:40 01/07/17 10:54 01/07/17 16:35 White Blood Count 10.32 K/uL Red Blood Count 3.76 M/uL Hemoglobin 10.4 g/dL Hematocrit 33.5 % Mean Corpuscular Volume 89.1 fL Mean Corpuscular Hemoglobin 27.7 pg Mean Corpuscular Hemoglobin Concent 31.0 g/dl RDW Standard Deviation 48.0 fL RDW Coefficient of Variation 14.7 % Platelet Count 354 K/uL Mean Platelet Volume 9.4 fL Erythrocyte Sedimentation Rate 29 mm/hr Sodium Level 138 mmol/L Potassium Level 3.7 mmol/L Chloride Level 104 mmol/L Carbon Dioxide Level 29 mmol/L Anion Gap 5.0 mmol/L Blood Urea Nitrogen 13 mg/dl Creatinine 0.81 mg/dl Est Creatinine Clear Calc Drug Dose 90.7 ml/min Estimated GFR () 92.8 Estimated GFR (Non- 80.1 BUN/Creatinine Ratio 16.4 Random Glucose 139 mg/dl Calcium Level 8.0 mg/dl C-Reactive Protein 7.37 mg/dl Chemistry Specimen Hemolysis Bedside Glucose 172 mg/dl 176 mg/dl 141 mg/dl Test 01/07/17 20:33 Bedside Glucose 135 mg/dl Assessment and Plan 56 y/o female with a history of SD, HTN, HLD, DM II, asthma, hypothyroidism, depression, migraines, chronic back pain and GERD, Chronic pain syndrome and opioid dependence, Neuropathy, Asthma, previous Right leg wound infected with MRSA, Chronic lower back pain, degenerative disc disease lumbar spine with old compression fractures, Small bilateral renal cysts, Depression/anxiety, and a stress-induced CM, who presented to the ED on 01/06 with worsening swelling, redness, and pain in the right lower extremity. Pt afebrile but tachycardic in ED, BP stable and non-hypoxic. WBC 22.05. BLE venous Doppler ultrasound negative for DVT. CXR no acute disease. R ankle x-ray soft tissue swelling, no fractures. She is admitted here with bilateral LE cellulitis and sepsis. Now with gram-positive cocci in her blood cultures Sepsis, bilateral lower extremity cellulitis, bacteremia-remains afebrile, leukocytosis resolving. Source of infection unclear, but does have a few excoriations on her legs. She reports dropping a frozen chicken on her left pinky toe several months ago and it was swollen for a while but has since resolved. She has a history of MRSA wound infections. -Continue broad-spectrum antibiotics with Zosyn and vancomycin until sensitivities return -Repeat blood cultures now -Replace PICC line after repeat blood cultures are negative -ID consultation placed, will likely need 2 weeks of IV antibiotics -Check echocardiogram to look for valvular vegetation - follow WBC count, ESR, CRP -Pain control-will add IV morphine when necessary in addition to her by mouth oxycodone -DC IV fluids Fall, right elbow pain-check elbow x-ray H/o stress-induced cardiomyopathy, HTN, HLD--stable -Recent NSTEMI 08/30/16 thought to be stress-induced, cardiac cath showed mild non -obstructive CAD -Continue Plavix, Toprol 100 mg PO hs, and Crestor 20 mg PO qd DM II- HgbA1c 7.7% -Pt recently stopped taking Actos and has been diet controlled -Insulin sliding scale -Check BSGs q ac and qhs Asthma, seasonal allergies -Continue Singulair 10 mg PO qd, Claritin 10 mg PO qd, Advair 1 puff inh BID and albuterol prn Hypothyroidism-no recent TSH on file -Continue Synthroid 150 mcg PO qd -Check TSH Anxiety and depression -Continue amitriptyline 50 mg PO qhs and Prozac 40 mg PO qd Migraines -Continue Midrin 1 capsule q4h prn migraine Chronic back pain, chronic pain syndrome, opioid dependence -Continue oxycodone 30 mg PO q6h, gabapentin 800 mg PO TID, and amitriptyline -Encouraged weaning off of chronic opioids GERD -Continue PPI DVT prophylaxis -Enoxaparin 40 mg SC q24h Code Status -Level I, FULL RESUSCITATION STATUS
[2017-01-07] MEDS ORDERED: NURSING VERBAL MED ORDER ONE (23:45)
[2017-01-08] MEDS: MoRPHine SULFATE 2 MG/ML CARP IV PRN ×5 (00:29→19:34)
[2017-01-08 00:44] VITALS: BP 119/84; PULSE 84; TEMP 37.3; O2SAT 94
[2017-01-08] MEDS ORDERED: VANCOMYCIN TROUGH ONE (05:30)
[2017-01-08] MEDS: OXYCODONE HCL IR 30 MG TAB (IMMEDIATE RELEASE) PO SCH ×4 (06:04→23:28)
[2017-01-08] MEDS: LEVOTHYROXINE 150 MCG TAB PO SCH (06:04)
[2017-01-08 07:27] VITALS: BP 135/79; PULSE 78; TEMP 36.5; O2SAT 90
[2017-01-08] MEDS: OXYCODONE HCL IR 5 MG TAB (IMMEDIATE RELEASE) PO PRN ×3 (07:52→21:50)
[2017-01-08] MEDS: ROSUVASTATIN CALCIUM 20 MG TAB PO SCH (07:53)
[2017-01-08] MEDS: PANTOprazole SOD 40 MG TAB PO SCH (07:53)
[2017-01-08] MEDS: CLOPIDOGREL BISULFATE 75 MG TAB PO SCH (07:53)
[2017-01-08] MEDS: GABAPENTIN 800 MG TAB PO SCH ×3 (07:53→19:36)
[2017-01-08] MEDS: LORATADINE 10 MG TAB PO SCH (07:53)
[2017-01-08] MEDS: FLUTICASONE/SALMETEROL (ADVAIR) 500/50 INH 14 PUFF INH SCH ×2 (07:54→19:34)
[2017-01-08] MEDS: INSULIN ASPART 100 UNITS/ML 3 ML PEN SC SCH ×4 (07:55→21:00)
[2017-01-08] MEDS: ENOXAPARIN 40 MG/0.4 ML SYR SQ SCH (07:56)
[2017-01-08 09:08] LABS: MEAN CELL VOLUME 88.6 fL (80-100); MEAN CORPUSCULAR HEMOGLOBIN 28.8 pg (25-34); MEAN CORPUSCULAR HGB CONC 32.5 g/dl (32-36); MEAN PLATELET VOLUME 9.5 fL (7.4-10.4); PLATELET COUNT 343 K/uL (130-400); RED BLOOD COUNT 3.61 M/uL (4.2-5.4); WHITE BLOOD COUNT 11.98 K/uL (4.8-10.8)
[2017-01-08 09:36] LABS: BUN/CREATININE RATIO 15.2 (10-20); CALCIUM 8.5 mg/dl (8.5-10.1); CREATININE 0.89 mg/dl (0.60-1.20); POTASSIUM 3.9 mmol/L (3.5-5.1)
[2017-01-08] MEDS: PIPERACILL/TAZOBAC IV 4.5 GM in DEXTROSE 5% 100ML IV SCH (09:37)
[2017-01-08 09:46] LABS: THYROID STIMULATING HORMONE 5.17 uIu/ml (0.300-4.500)
--- NOTE | 2017-01-08 11:51 | Progress Note ---
Progress Note Date of Service Jan 08, 2017. Progress Note ID Consult Dictated #[id number] A/P: 1. RLE Cellulitis 2. + blood culture - staff attorney 1/2 sets 3. Leukocytosis -resolved -Continue vanco, stop zosyn -Repeat blood cultures and echo pending -cellulitis resolved -If echo negative and repeat cultures negative, would give 14 days vanco -thank you
--- NOTE | 2017-01-08 12:05 | INFECT. DISEASE CONSULTATION ---
DATE OF CONSULTATION: 01/08/2017 REQUESTING PHYSICIAN: Dr. Gallardo. HISTORY OF PRESENT ILLNESS: This is a 56-year-old female who was admitted to the hospital on the with worsening swelling, redness and pain in her right lower extremity. She states she was clipping her toenails and did clip her toenails too close to the skin and subsequently developed cellulitis. She has had episodes of cellulitis in the past, for which she states she was treated for MRSA. She did have blood cultures as part of her initial workup and 1 out of 2 sets from her initial blood cultures are growing coagulase-negative staph. Repeat blood cultures were ordered yesterday and are pending. She did have an elevated white blood cell count of 22, but this has improved to 11.9. Her sed rate has been mildly elevated at 29. She was started empirically on vancomycin and Zosyn and remains on these antibiotics. She did have an isolated low grade fever of 37.7 on admission, but has otherwise been afebrile. An echo has been ordered and is pending. A PICC was placed last night for ongoing IV vancomycin therapy. Her repeat blood cultures are currently pending. On my examination today, she states she is feeling significantly better. She feels that the erythema has almost completely resolved as well as the swelling, but she does have some continued stabbing intermittent pain in the right lower extremity. She denies any fevers or chills. She has no chest pain, cough, shortness of breath, nausea, vomiting, diarrhea or abdominal pain. Her appetite is stable. She has no urinary symptoms. All remaining review of systems is reviewed and is negative except for as noted above. PAST MEDICAL HISTORY: Significant for acute kidney injury, anxiety, asthma, chronic back pain, closed head injury, contusions, arthritis, depression, type 2 diabetes, GERD, history of DVT, high cholesterol, hypertension, hypothyroidism, morbid obesity and osteoporosis. PAST SURGICAL HISTORY: Significant for appendectomy and hernia repair. FAMILY HISTORY: Noncontributory. SOCIAL HISTORY: Significant for a history of tobacco use. She quit in 1991. She denies any alcohol or drug use. ALLERGIES: SHE HAS MULTIPLE ALLERGIES, INCLUDING ASPIRIN, KEFLEX, LATEX, NSAIDS, SULFA, STATINS AND METFORMIN. PHYSICAL EXAMINATION: VITAL SIGNS: She is afebrile, pulse 70, respiratory rate 18, blood pressure 135/79, and oxygen saturation is 92%-94% on room air. GENERAL: She is awake, alert and oriented x3 on my examination. She is in no acute distress. HEENT: Mucous membranes are moist. Extraocular muscles are intact. HEART: Regular. LUNGS: Clear bilaterally. ABDOMEN: Soft, nontender, and nondistended. EXTREMITIES: Examination of the lower extremities reveals no erythema, edema or tenderness bilaterally. There is no warmth. She states that the erythema that was present on her right lower extremity has resolved completely. There are no open lesions. PICC line is in place in the right upper extremity. LABORATORY STUDIES: CBC today reveals a white blood cell count 11.9, hemoglobin 10.4 and platelets are 343. Sed rate is 29. Chemistry panel reveals a sodium of 140, potassium 3.9, chloride 106, bicarbonate 30, BUN 14, creatinine 0.8, and glucose is 94. TSH is elevated at 5.1. Urinalysis is unremarkable. Hep C antibody is negative. Urine cultures are growing lactobacillus. Blood cultures from the 11th, 1 out of 2 sets are growing coag-negative staph. Blood cultures from yesterday are pending. She did have a fall overnight. Elbow x-ray was unremarkable. Lower extremity ultrasounds were negative for DVT. ASSESSMENT AND PLAN: 1. Right lower extremity cellulitis, resolving on current antibiotics. 2. Positive blood culture with coag-negative staph, question contaminant of those pathogen. Echo and repeat blood cultures are pending. picc was placed. She certainly can continue a 14-day course of vancomycin if repeat blood cultures remain negative. Zosyn can be discontinued. Thank you for this consultation. ANDREINA
[2017-01-08] MEDS: VANCOMYCIN INJ 1,750 MG in SODIUM CHLORIDE 0.9% 500ML 500 ML IV SCH ×2 (12:30→23:28)
--- NOTE | 2017-01-08 13:01 | Pharmacy Progress Note ---
Pharmacy Antibiotic Prog Note Date of Service Jan 08, 2017. Subjective The patient is currently receiving vancomycin 1750 mg IV every 12 hours, and Zosyn just dc'd. The patient is currently on day # 3 of vancomycin IV therapy. Objective Height (Feet): 5 Height (Inches): 2.00 Weight (Kilograms): 114.500 Levels: Due to IV access problems, vancomycin dose times were changed. Vancomycin trough cancelled today,will be drawn tomorrow. Lab Results (24hrs): Test 01/08/17 07:40 01/08/17 08:11 01/08/17 11:50 Bedside Glucose 97 mg/dl (70-90) 167 mg/dl (70-90) White Blood Count 11.98 K/uL (4.8-10.8) Red Blood Count 3.61 M/uL (4.2-5.4) Hemoglobin 10.4 g/dL (12.0-16.0) Hematocrit 32.0 % (37-47) Mean Corpuscular Volume 88.6 fL (80-100) Mean Corpuscular Hemoglobin 28.8 pg (25-34) Mean Corpuscular Hemoglobin Concent 32.5 g/dl (32-36) RDW Standard Deviation 48.2 fL (36.4-46.3) RDW Coefficient of Variation 14.8 % (11.5-14.5) Platelet Count 343 K/uL (130-400) Mean Platelet Volume 9.5 fL (7.4-10.4) Sodium Level 140 mmol/L (136-145) Potassium Level 3.9 mmol/L (3.5-5.1) Chloride Level 106 mmol/L (98-107) Carbon Dioxide Level 30 mmol/L (21-32) Anion Gap 4.0 mmol/L (3-11) Blood Urea Nitrogen 14 mg/dl (7-18) Creatinine 0.89 mg/dl (0.60-1.20) Est Creatinine Clear Calc Drug Dose 82.5 ml/min Estimated GFR () 82.8 Estimated GFR (Non- 71.4 BUN/Creatinine Ratio 15.2 (10-20) Random Glucose 94 mg/dl (70-99) Calcium Level 8.5 mg/dl (8.5-10.1) Thyroid Stimulating Hormone (TSH) 5.170 uIu/ml (0.300-4.500) Micro Results: 01/06 urine Lactobacillus sp. (likely colonization) 01/06 blood x2 NGTD in 1, coag neg staph nonlugdensis in 1 01/07 blood x2 pending Recent Pertinent Medications Item Value Date Time Vancomycin HCl 535 ml @ 200 mls/hr 01/08/17 1200 1750 mg/Sodium Q12H/IV 01/08/17 1230 Chloride Vancomycin HCl 535 ml @ 200 mls/hr 01/06/17 1800 1750 mg/Sodium Q12@0600,1800/IV 01/07/17 1803 Chloride Piperacillin Sod/ 120 ml @ 30 mls/hr 01/06/17 1600 Tazobactam Sod Q8H/IV 01/08/17 0937 4.5 gm/Dextrose Assessment & Plan Goal trough level estimate: between 15-20 mcg/mL. Trough has been ordered for: 01/09/17 before 1200 dose. Pharmacy will continue to follow and will adjust dose/frequency as necessary. Thank you
--- NOTE | 2017-01-08 13:37 | ECHOCARDIOGRAM REPORT ---
*NOTICE TO RECEIVING CONSTITUTION PARTY AGENCY This information is strictly Confidential and protected under [place] law. [place] law prohibits you from making any further disclosure of this information unless further disclosure is expressly permitted by the written consent of the person to whom it pertains or is authorized by law. A general authorization for the release of medical or other information is not sufficient for this purpose. Hospital accepts no responsibility if the information is made available to any other person, INCLUDING THE PATIENT. Interpretation Summary * GEOVANY CARBAJAL Study Date: 01/08/2017 09:36 AM BP: 135/79 mmHg * Patient Location: [id number].4E\[id number]\E415\[id number]\1 HR: 86 * : 1960 (M/d/yyyy) Gender: Female Height: 62 in * Age: 56 yrs Ethnicity: [place] Weight: 252 lb * Ordering Physician: Marina Gallardo * Referring Physician: Self, Referred * Performed By: Brielle Castaneda RCS * * Reason For Study: ENDOCARDITIS * BSA: 2.1 m2 * Normal biventricular systolic function. * Normal chamber dimensions. * Trace mitral regurgitation. * Mild tricuspid regurgitation. * Mildly elevated estimated right ventricular systolic pressure. * There is no evidence of a mass or vegetation. This does not rule out endocarditis. Procedure Details * A complete two-dimensional transthoracic echocardiogram was performed (2D, M-mode, Doppler and color flow Doppler). Left Ventricle * The left ventricle is normal in size. * There is normal left ventricular wall thickness. * Left ventricular systolic function is normal. * Ejection Fraction = 55-60%. * The left ventricular wall motion is normal. Right Ventricle * The right ventricle is normal in size and function. Atria * The left atrial size is normal. * Right atrial size is normal. * No ASD detected; PFO is not assessed. Mitral Valve * The mitral valve is normal. * There is no mitral valve stenosis. * There is trace mitral regurgitation. Tricuspid Valve * The tricuspid valve is normal. * There is no tricuspid stenosis. * There is mild tricuspid regurgitation. * Right ventricular systolic pressure is elevated at 30-40mmHg. Aortic Valve * The aortic valve is trileaflet. * The aortic valve opens well. * Aortic stenosis is absent. * No aortic regurgitation is present. Pulmonic Valve * The pulmonary valve is inadequately visualized, but the Doppler data is adequate for interpretation. * There is no pulmonic valvular stenosis. * There is no pulmonic valvular regurgitation. Great Vessels * The aortic root is normal size. MMode 2D Measurements and Calculations IVSd 1.1 cm IVSs 1.8 cm LVIDd 4.5 cm LVIDs 3.2 cm LVPWd 1.0 cm LVPWs 1.7 cm IVS/LVPW 1.1 FS 29.2 % EDV(Teich) 94.7 ml ESV(Teich) 41.6 ml EF(Teich) 56.1 % EDV(cubed) 94.0 ml ESV(cubed) 33.4 ml EF(cubed) 64.4 % % IVS thick 63.5 % % LVPW thick 69.3 % LV mass(C)d 169.9 grams LV mass(C)dI 80.6 grams/m\S\2 LV mass(C)s 229.9 grams LV mass(C)sI 109.0 grams/m\S\2 SV(Teich) 53.1 ml SI(Teich) 25.2 ml/m\S\2 SV(cubed) 60.6 ml SI(cubed) 28.7 ml/m\S\2 Ao root diam 3.1 cm Ao root area 7.6 cm\S\2 LA dimension 3.8 cm LA/Ao 1.2 LVOT diam 2.0 cm LVOT area 3.1 cm\S\2 LVAd ap4 32.2 cm\S\2 LVLd ap4 7.7 cm EDV(MOD-sp4) 111.3 ml EDV(sp4-el) 114.7 ml LVAs ap4 20.9 cm\S\2 LVLs ap4 6.7 cm ESV(MOD-sp4) 53.4 ml ESV(sp4-el) 55.7 ml EF(MOD-sp4) 52.0 % EF(sp4-el) 51.5 % LVAd ap2 34.9 cm\S\2 LVLd ap2 8.4 cm EDV(MOD-sp2) 119.2 ml EDV(sp2-el) 122.7 ml LVAs ap2 21.4 cm\S\2 LVLs ap2 7.0 cm ESV(MOD-sp2) 55.1 ml ESV(sp2-el) 55.6 ml EF(MOD-sp2) 53.7 % EF(sp2-el) 54.7 % LVLd %diff 9.1 % EDV(MOD-bp) 120.4 ml LVLs %diff 4.9 % ESV(MOD-bp) 55.0 ml EF(MOD-bp) 54.3 % SV(MOD-sp4) 57.9 ml SI(MOD-sp4) 27.4 ml/m\S\2 SV(MOD-sp2) 64.0 ml SI(MOD-sp2) 30.4 ml/m\S\2 SV(MOD-bp) 65.4 ml SI(MOD-bp) 31.0 ml/m\S\2 SV(sp4-el) 59.1 ml SI(sp4-el) 28.0 ml/m\S\2 SV(sp2-el) 67.1 ml SI(sp2-el) 31.8 ml/m\S\2 Doppler Measurements and Calculations MV E max coral 125.1 cm/sec MV A max coral 120.2 cm/sec MV E/A 1.0 MV P1/2t max coral 156.2 cm/sec MV P1/2t 68.9 msec MVA(P1/2t) 3.2 cm\S\2 MV dec slope 663.4 cm/sec\S\2 MV dec time 0.23 sec Ao V2 max 138.9 cm/sec Ao max PG 7.7 mmHg Ao max PG (full) 3.8 mmHg ONI(V,A) 2.2 cm\S\2 ONI(V,D) 2.2 cm\S\2 LV V1 max PG 3.9 mmHg LV V1 max 99.2 cm/sec PA V2 max 100.9 cm/sec PA max PG 4.1 mmHg TR max coral 273.7 cm/sec
[2017-01-08 14:59] VITALS: BP 154/95; PULSE 74; TEMP 37.2; O2SAT 94
--- NOTE | 2017-01-08 17:27 | Hospitalist Progress Note ---
Hospitalist Progress Note Date of Service Jan 08, 2017. Subjective Pt evaluation today including: conversation w/ patient Pt afebrile, still c/o "severe pain" when barely touched in her legs and even in spots on her abdomen and various places. Admits she is very sensitive to pain and even sometimes when her cat walks across her body, she has pain. All Other Systems: Reviewed and Negative Objective Vital Signs Date Time Temp Pulse Resp B/P (MAP) Pulse Ox O2 Delivery O2 Flow Rate FiO2 01/08/17 15:40 Room Air 01/08/17 14:59 37.2 74 20 154/95 (114) 94 Room Air 01/08/17 08:52 Room Air 01/08/17 07:27 36.5 78 18 135/79 (97) 90 01/08/17 00:44 37.3 84 20 119/84 (96) 94 Room Air 01/08/17 00:00 Room Air 01/07/17 20:27 80 145/97 (113) Physical Exam General Appearance: no apparent distress, + obese Eyes: normal inspection, sclerae normal ENT: hearing grossly normal Neck: trachea midline Respiratory/Chest: lungs clear, normal breath sounds, no respiratory distress, no accessory muscle use Cardiovascular: regular rate, rhythm, no edema, no gallop, no murmur Abdomen: normal bowel sounds, non tender, soft Extremities: + pertinent finding (erythema in lower extremities is completely resolved today, still with exquisite TTP in legs medially R>L with very minimal pressure with palpation) Neurologic/Psychiatric: alert, + pertinent finding (anxious) Skin: normal color, warm/dry Laboratory Results Last 24 Hours Test 01/07/17 20:33 01/08/17 07:40 01/08/17 08:11 01/08/17 11:50 Bedside Glucose 135 mg/dl 97 mg/dl 167 mg/dl White Blood Count 11.98 K/uL Red Blood Count 3.61 M/uL Hemoglobin 10.4 g/dL Hematocrit 32.0 % Mean Corpuscular Volume 88.6 fL Mean Corpuscular Hemoglobin 28.8 pg Mean Corpuscular Hemoglobin Concent 32.5 g/dl RDW Standard Deviation 48.2 fL RDW Coefficient of Variation 14.8 % Platelet Count 343 K/uL Mean Platelet Volume 9.5 fL Sodium Level 140 mmol/L Potassium Level 3.9 mmol/L Chloride Level 106 mmol/L Carbon Dioxide Level 30 mmol/L Anion Gap 4.0 mmol/L Blood Urea Nitrogen 14 mg/dl Creatinine 0.89 mg/dl Est Creatinine Clear Calc Drug Dose 82.5 ml/min Estimated GFR () 82.8 Estimated GFR (Non- 71.4 BUN/Creatinine Ratio 15.2 Random Glucose 94 mg/dl Calcium Level 8.5 mg/dl Thyroid Stimulating Hormone (TSH) 5.170 uIu/ml Test 01/08/17 16:59 Bedside Glucose 133 mg/dl Assessment and Plan 56 y/o female with a history of CT, HTN, HLD, DM II, asthma, hypothyroidism, depression, migraines, Morbid obesity, chronic back pain and GERD, Chronic pain syndrome and opioid dependence, Neuropathy, Asthma, previous Right leg wound infected with MRSA, Chronic lower back pain, degenerative disc disease lumbar spine with old compression fractures, Small bilateral renal cysts, Depression/ anxiety, and a stress-induced CM, who presented to the ED on 01/06 with worsening swelling, redness, and pain in the right lower extremity. Pt afebrile but tachycardic in ED, BP stable and non-hypoxic. WBC 22.05. BLE venous Doppler ultrasound negative for DVT. CXR no acute disease. R ankle x- ray soft tissue swelling, no fractures. She is admitted here with bilateral LE cellulitis and sepsis. With Coag neg Staph 1/4 bottles in her blood cultures Sepsis, bilateral lower extremity cellulitis-remains afebrile, leukocytosis resolving but slightly up today. Coag neg Staph in 1/4 bottles, likely contaminant. Source of infection unclear, but does have a few excoriations on her legs and cuts toenails very short. Also with morbid obesity and venous insufficiency likely contributing. She reports dropping a frozen chicken on her left pinky toe several months ago and it was swollen for a while but has since resolved. She has a history of MRSA wound infections. ECHO no vegetation on valves Pain out of proportion to exam--> discussed possibility of FM -Continue Vanco IV x 14 days as per ID recommendation, can dc Zosyn -Repeat blood cultures NGTD -has PICC line in place -ID consultation appreciated - follow WBC count, ESR, CRP -Pain control-continue IV morphine when necessary in addition to her by mouth oxycodone but will dc tomorrow as needs to transition to pain meds at home doses -consider referral to Rheum as outpt for eval for FM -recommended compression stockings and treatment for venous insufficiency, weight loss programs to rpevent future occurences of LE infections Fall, right elbow pain- elbow x-ray neg for fracture H/o stress-induced cardiomyopathy, HTN, HLD--stable -Recent NSTEMI 08/30/16 thought to be stress-induced, cardiac cath showed mild non -obstructive CAD -Continue Plavix, Toprol 100 mg PO hs, and Crestor 20 mg PO qd DM II- HgbA1c 7.7% -Pt recently stopped taking Actos and has been diet controlled -Insulin sliding scale -Check BSGs q ac and qhs Asthma, seasonal allergies -Continue Singulair 10 mg PO qd, Claritin 10 mg PO qd, Advair 1 puff inh BID and albuterol prn Hypothyroidism-TSH mildly elevated at 5 -Continue Synthroid 150 mcg PO qd -f/u TSH as outpt when not ill Anxiety and depression-exacerbated by hospitalization -Continue amitriptyline 50 mg PO qhs and Prozac 40 mg PO qd -supportive care Migraines-none currently -Continue Midrin 1 capsule q4h prn migraine Chronic back pain, chronic pain syndrome, opioid dependence--> suspect FM as above -Continue oxycodone 30 mg PO q6h, gabapentin 800 mg PO TID, and amitriptyline -Encouraged weaning off of chronic opioids GERD -Continue PPI DVT prophylaxis -Enoxaparin 40 mg SC q24h Code Status -Level I, FULL RESUSCITATION STATUS
[2017-01-08] MEDS: FLUOXETINE HCL 20 MG CAP PO SCH (19:36)
[2017-01-08] MEDS: METOPROLOL SUCC 50MG EXT REL TAB PO SCH (19:36)
[2017-01-08] MEDS: AMITRIPTYLINE HCL 25 MG TAB PO SCH (19:37)
[2017-01-08] MEDS: MONTELUKAST SOD 10 MG TAB PO SCH (19:37)
[2017-01-09 00:27] VITALS: BP 127/83; PULSE 83; TEMP 37.2; O2SAT 91
[2017-01-09] MEDS: MoRPHine SULFATE 2 MG/ML CARP IV PRN ×4 (02:07→19:52)
[2017-01-09] MEDS: OXYCODONE HCL IR 30 MG TAB (IMMEDIATE RELEASE) PO SCH ×4 (05:26→23:28)
[2017-01-09] MEDS: LEVOTHYROXINE 150 MCG TAB PO SCH (05:26)
[2017-01-09 05:33] LABS: HEMATOCRIT 32.2 % (37-47); MEAN CELL VOLUME 88.2 fL (80-100); MEAN CORPUSCULAR HEMOGLOBIN 28.2 pg (25-34); MEAN PLATELET VOLUME 9.4 fL (7.4-10.4); PLATELET COUNT 348 K/uL (130-400); RED BLOOD COUNT 3.65 M/uL (4.2-5.4); WHITE BLOOD COUNT 12.47 K/uL (4.8-10.8)
[2017-01-09 05:54] LABS: BUN/CREATININE RATIO 14.7 (10-20); C-REACTIVE PROTEIN 2.52 mg/dl (0-0.29); CALCIUM 8.6 mg/dl (8.5-10.1); CREATININE 0.78 mg/dl (0.60-1.20); POTASSIUM 4.1 mmol/L (3.5-5.1)
[2017-01-09 07:38] VITALS: BP 137/96; PULSE 71; TEMP 36.9; O2SAT 89
[2017-01-09] MEDS: INSULIN ASPART 100 UNITS/ML 3 ML PEN SC SCH ×4 (07:46→20:07)
[2017-01-09] MEDS: FLUTICASONE/SALMETEROL (ADVAIR) 500/50 INH 14 PUFF INH SCH ×2 (07:55→19:47)
[2017-01-09] MEDS: ROSUVASTATIN CALCIUM 20 MG TAB PO SCH (07:55)
[2017-01-09] MEDS: LORATADINE 10 MG TAB PO SCH (07:55)
[2017-01-09] MEDS: CLOPIDOGREL BISULFATE 75 MG TAB PO SCH (07:55)
[2017-01-09] MEDS: OXYCODONE HCL IR 5 MG TAB (IMMEDIATE RELEASE) PO PRN ×4 (07:55→23:29)
[2017-01-09] MEDS: GABAPENTIN 800 MG TAB PO SCH ×3 (07:55→19:49)
[2017-01-09] MEDS: PANTOprazole SOD 40 MG TAB PO SCH (07:56)
[2017-01-09] MEDS: ENOXAPARIN 40 MG/0.4 ML SYR SQ SCH (07:56)
[2017-01-09] MEDS ORDERED: VANCOMYCIN TROUGH SCH (11:30)
[2017-01-09 11:48] VITALS: BP 133/91; PULSE 81; TEMP 37.1; O2SAT 91
[2017-01-09] MEDS: VANCOMYCIN INJ 1,750 MG in SODIUM CHLORIDE 0.9% 500ML 500 ML IV SCH ×2 (12:16→23:33)
--- NOTE | 2017-01-09 13:28 | Progress Note ---
Subjective Date of Service: Jan 09, 2017. Subjective pt tolerating abx echo negative, repeat cultures negative, s/p picc line. afebrile overnight. wbc 12. no overnight events. Problem List Medical Problems: (1) Abdominal wall abscess Status: Acute (2) Acute exacerbation of chronic low back pain Status: Acute (3) Anxiety State Nos Status: Chronic (4) Asthma Status: Chronic (5) Cellulitis Status: Acute (6) Cellulitis of toe of left foot Status: Acute (7) Chalazion left upper eyelid Status: Acute (8) Contusion of left knee Status: Acute (9) Contusion of right foot Status: Acute (10) Degenerative arthritis of knee Status: Chronic (11) Depressive Disorder Nec Status: Chronic (12) Diab Niyah Wo Compl, Type Ii Or Unspec Type, Not Uncntrld Status: Chronic (13) Epigastric abdominal pain Status: Acute (14) Esophageal Reflux Status: Chronic (15) Headache Status: Acute (16) Hx-Venous Thrombosis&Embolism Status: Chronic (17) Hyperlipidemia Nec/Nos Status: Chronic (18) Hypertension Status: Chronic (19) Hypertension Status: Acute (20) Hypothyroidism Nos Status: Chronic (21) Leg pain, right Status: Acute (22) Lumbar Disc Displacement Status: Chronic (23) Lumbar radiculopathy Status: Acute (24) Lumbosacral Neuritis Nos Status: Chronic (25) Morbid Obesity Status: Chronic (26) Osteoporosis Nos Status: Chronic (27) Pneumonia Status: Acute (28) Splenosis Status: Chronic (29) Substernal chest pain Status: Acute (30) Urinary tract infection Status: Acute (31) UTI (urinary tract infection) Status: Acute (32) Wide-complex tachycardia Status: Acute Objective Vital Signs Date Time Temp Pulse Resp B/P (MAP) Pulse Ox O2 Delivery O2 Flow Rate FiO2 01/09/17 11:48 37.1 81 24 133/91 (105) 91 Room Air 01/09/17 11:08 Room Air 01/09/17 07:38 36.9 71 12 137/96 (110) 89 Room Air 01/09/17 00:27 37.2 83 18 127/83 (98) 91 Room Air 01/09/17 00:00 Room Air 01/08/17 20:00 Room Air 01/08/17 15:40 Room Air 01/08/17 14:59 37.2 74 20 154/95 (114) 94 Room Air Physical Exam General Appearance: WD/WN Laboratory Results Item Value Date Time Urine Culture - Preliminary Resulted 01/06/17 0315 Urine , Clean Catch Lactobacillus Species Blood Culture - Preliminary Resulted 01/06/17 0731 Blood Coag Neg Staph Not Lugdunensis Blood Culture - Final Complete 01/06/17 0731 Blood Coag Neg Staph Not Lugdunensis Blood Culture - Preliminary Resulted 01/07/17 2341 Blood NO GROWTH TO DATE. Blood Culture - Preliminary Resulted 01/07/17 2325 Blood NO GROWTH TO DATE. Blood Culture - Preliminary Resulted 01/06/17 0715 Blood NO GROWTH TO DATE. Last 24 Hours Test 01/08/17 16:59 01/08/17 21:19 01/09/17 05:19 01/09/17 07:30 Bedside Glucose 133 mg/dl 166 mg/dl 118 mg/dl White Blood Count 12.47 K/uL Red Blood Count 3.65 M/uL Hemoglobin 10.3 g/dL Hematocrit 32.2 % Mean Corpuscular Volume 88.2 fL Mean Corpuscular Hemoglobin 28.2 pg Mean Corpuscular Hemoglobin Concent 32.0 g/dl RDW Standard Deviation 47.5 fL RDW Coefficient of Variation 14.6 % Platelet Count 348 K/uL Mean Platelet Volume 9.4 fL Erythrocyte Sedimentation Rate 39 mm/hr Sodium Level 140 mmol/L Potassium Level 4.1 mmol/L Chloride Level 106 mmol/L Carbon Dioxide Level 32 mmol/L Anion Gap 2.0 mmol/L Blood Urea Nitrogen 12 mg/dl Creatinine 0.78 mg/dl Est Creatinine Clear Calc Drug Dose 94.2 ml/min Estimated GFR () 97.1 Estimated GFR (Non- 83.8 BUN/Creatinine Ratio 14.7 Random Glucose 97 mg/dl Calcium Level 8.6 mg/dl C-Reactive Protein 2.52 mg/dl Test 01/09/17 11:29 01/09/17 11:36 Bedside Glucose 166 mg/dl Vancomycin Level Trough 16.8 mcg/ml Assessment and Plan (1) Positive blood culture Assessment & Plan: ? contaminant vs pathogen. repeat negative to date. echo negative. would give 14 days IV vanco via picc, maintain trough 15-20. elevate leg. (2) Cellulitis Problem Qualifiers (1) Cellulitis: Site of cellulitis: extremity Site of cellulitis of extremity: lower extremity Laterality: unspecified laterality Qualified Codes: L03.119 - Cellulitis of unspecified part of limb
[2017-01-09 14:44] VITALS: BP 128/77; PULSE 87; TEMP 37; O2SAT 96
--- NOTE | 2017-01-09 15:10 | Pharmacy Progress Note ---
Pharmacy Abx Dose Short Note Date of Service Jan 09, 2017. Assessment & Plan Assessment 56 year old female receiving Vancomycin for treatment of recurrent Cellulitis with history of MRSA. Day # 08/09 of antimicrobial therapy. Plan Vancomycin * Trough level of 16.8 mcg/mL is therapeutic. * Continue dose of Vancomycin 1750 mg IV every 12 hours. * Goal trough level: 15 to 20 mcg/mL per Dr. Joya in today's note. * Extended duration of therapy until 01/20/17 for 14 days of therapy total. * Ordered another trough level for 01/12 before dose at 1200 to confirm dose is not accumulating. Pharmacy will continue to follow and will adjust dose/frequency as necessary. Thank you.
[2017-01-09] MEDS: AMITRIPTYLINE HCL 25 MG TAB PO SCH (19:48)
[2017-01-09] MEDS: MONTELUKAST SOD 10 MG TAB PO SCH (19:48)
[2017-01-09] MEDS: METOPROLOL SUCC 50MG EXT REL TAB PO SCH (19:48)
[2017-01-09] MEDS: FLUOXETINE HCL 20 MG CAP PO SCH (19:48)
--- NOTE | 2017-01-09 23:14 | Hospitalist Progress Note ---
Hospitalist Progress Note Date of Service Jan 09, 2017. Subjective Pt evaluation today including: conversation w/ patient Pt having a rash and a blister with significant itching around PICC adhesive bandage-was changed to a different dressing today. No N/V, no diarrhea, is moving bowels, ambulating All Other Systems: Reviewed and Negative Objective Vital Signs Date Time Temp Pulse Resp B/P (MAP) Pulse Ox O2 Delivery O2 Flow Rate FiO2 01/09/17 20:00 Room Air 01/09/17 14:44 37.0 87 18 128/77 (94) 96 Room Air 01/09/17 11:48 37.1 81 24 133/91 (105) 91 Room Air 01/09/17 11:08 Room Air 01/09/17 07:38 36.9 71 12 137/96 (110) 89 Room Air 01/09/17 00:27 37.2 83 18 127/83 (98) 91 Room Air 01/09/17 00:00 Room Air Physical Exam General Appearance: no apparent distress, + obese Eyes: normal inspection, sclerae normal ENT: hearing grossly normal Neck: trachea midline Respiratory/Chest: lungs clear, normal breath sounds, no respiratory distress, no accessory muscle use Cardiovascular: regular rate, rhythm, no edema, no gallop, no murmur Abdomen: normal bowel sounds, soft, + tenderness (over site of bruising from Lovenox injections, no guarding or rebound) Extremities: no pedal edema, no calf tenderness Neurologic/Psychiatric: alert, oriented x 3 Skin: warm/dry, + pertinent finding (Rt upper arm with PICC in place without erythema around insertion, but then with erythema and a small blister excoriated open just around the adhesive dressing, also with large ecchymosis around PICC insertion site through triceps; legs without any erythema at all, no tenderness) Laboratory Results Last 24 Hours Test 01/09/17 05:19 01/09/17 07:30 01/09/17 11:29 01/09/17 11:36 White Blood Count 12.47 K/uL Red Blood Count 3.65 M/uL Hemoglobin 10.3 g/dL Hematocrit 32.2 % Mean Corpuscular Volume 88.2 fL Mean Corpuscular Hemoglobin 28.2 pg Mean Corpuscular Hemoglobin Concent 32.0 g/dl RDW Standard Deviation 47.5 fL RDW Coefficient of Variation 14.6 % Platelet Count 348 K/uL Mean Platelet Volume 9.4 fL Erythrocyte Sedimentation Rate 39 mm/hr Sodium Level 140 mmol/L Potassium Level 4.1 mmol/L Chloride Level 106 mmol/L Carbon Dioxide Level 32 mmol/L Anion Gap 2.0 mmol/L Blood Urea Nitrogen 12 mg/dl Creatinine 0.78 mg/dl Est Creatinine Clear Calc Drug Dose 94.2 ml/min Estimated GFR () 97.1 Estimated GFR (Non- 83.8 BUN/Creatinine Ratio 14.7 Random Glucose 97 mg/dl Calcium Level 8.6 mg/dl C-Reactive Protein 2.52 mg/dl Bedside Glucose 118 mg/dl 166 mg/dl Vancomycin Level Trough 16.8 mcg/ml Test 01/09/17 16:31 01/09/17 19:56 Bedside Glucose 153 mg/dl 139 mg/dl Assessment and Plan 56 y/o female with a history of [place], HTN, HLD, DM II, asthma, hypothyroidism, depression, migraines, Morbid obesity, chronic back pain and GERD, Chronic pain syndrome and opioid dependence, Neuropathy, Asthma, previous Right leg wound infected with MRSA, Chronic lower back pain, degenerative disc disease lumbar spine with old compression fractures, Small bilateral renal cysts, Depression/ anxiety, and a stress-induced CM, who presented to the ED on 01/06 with worsening swelling, redness, and pain in the right lower extremity. Pt afebrile but tachycardic in ED, BP stable and non-hypoxic. WBC 22.05. BLE venous Doppler ultrasound negative for DVT. CXR no acute disease. R ankle x- ray soft tissue swelling, no fractures. She is admitted here with bilateral LE cellulitis and sepsis. With Coag neg Staph 1/4 bottles in her blood cultures Sepsis, bilateral lower extremity cellulitis-remains afebrile, leukocytosis slightly up again today to 12 but Crp trending downward, expect ESR to follow suit tomorrow. Coag neg Staph in 1/4 bottles, likely contaminant. Repeat BCxs NGTD Source of infection unclear, but does have a few excoriations on her legs and cuts toenails very short. Also with morbid obesity and venous insufficiency likely contributing. She reports dropping a frozen chicken on her left pinky toe several months ago and it was swollen for a while but has since resolved. She has a history of MRSA wound infections. ECHO no vegetation on valves Pain out of proportion to exam anywhere on body that she is touched--> discussed possibility of FM -Continue Vanco IV x 14 days as per ID recommendation, Zosyn discontinued -f/u Repeat blood cultures -has PICC line in place -ID consultation appreciated - follow WBC count, ESR, CRP -Pain control-continue IV morphine when necessary in addition to her by mouth oxycodone but will dc tomorrow as needs to transition to pain meds at home doses -consider referral to Rheum as outpt for eval for FM -recommended compression stockings and treatment for venous insufficiency, weight loss programs to rpevent future occurences of LE infections -hopeful to dc to home tomorrow if Home Infusion arranged Allergic reaction to adhesive on PICC--> benadryl prn Fall, right elbow pain- elbow x-ray neg for fracture H/o stress-induced cardiomyopathy, HTN, HLD--stable -Recent NSTEMI 08/30/16 thought to be stress-induced, cardiac cath showed mild non -obstructive CAD -Continue Plavix, Toprol 100 mg PO hs, and Crestor 20 mg PO qd DM II- HgbA1c 7.7%, glucose checks here fairly well controlled -Pt recently stopped taking Actos and has been diet controlled -Insulin sliding scale -Check BSGs q ac and qhs Asthma, seasonal allergies -Continue Singulair 10 mg PO qd, Claritin 10 mg PO qd, Advair 1 puff inh BID and albuterol prn Hypothyroidism-TSH mildly elevated at 5 -Continue Synthroid 150 mcg PO qd -f/u TSH as outpt when not ill Anxiety and depression-exacerbated by hospitalization -Continue amitriptyline 50 mg PO qhs and Prozac 40 mg PO qd -supportive care Migraines-none currently -Continue Midrin 1 capsule q4h prn migraine Chronic back pain, chronic pain syndrome, opioid dependence--> suspect FM as above -Continue oxycodone 30 mg PO q6h, gabapentin 800 mg PO TID, and amitriptyline -Encouraged weaning off of chronic opioids GERD -Continue PPI DVT prophylaxis -Enoxaparin 40 mg SC q24h Code Status -Level I, FULL RESUSCITATION STATUS Dispo- hopefully to home in 1-2 days if WBC count not trending up and remains afebrile
[2017-01-09 23:41] VITALS: BP 132/84; PULSE 86; TEMP 37; O2SAT 91
[2017-01-10] MEDS: MoRPHine SULFATE 2 MG/ML CARP IV PRN ×2 (01:00→08:04)
[2017-01-10] MEDS: LEVOTHYROXINE 150 MCG TAB PO SCH (05:47)
[2017-01-10] MEDS: OXYCODONE HCL IR 30 MG TAB (IMMEDIATE RELEASE) PO SCH ×4 (05:48→23:54)
[2017-01-10] MEDS: OXYCODONE HCL IR 5 MG TAB (IMMEDIATE RELEASE) PO PRN ×4 (05:48→20:55)
[2017-01-10 06:01] LABS: BASO % 0.7 %; BASO ABS # 0.09 K/uL (0-0.2); COMPLETE YES; EOS % 5.8 %; HEMATOCRIT 31.8 % (37-47); IG% 0.3 %; LYMPH % 20.2 %; LYMPH ABS # 2.72 K/uL (1.2-3.4); MEAN CELL VOLUME 88.6 fL (80-100); MEAN CORPUSCULAR HGB CONC 32.7 g/dl (32-36); MEAN PLATELET VOLUME 9.5 fL (7.4-10.4); MONO % 10.5 %; NEUT % 62.5 %; PLATELET COUNT 363 K/uL (130-400); RED BLOOD COUNT 3.59 M/uL (4.2-5.4); WHITE BLOOD COUNT 13.46 K/uL (4.8-10.8)
[2017-01-10 06:34] LABS: BUN/CREATININE RATIO 12.1 (10-20); CALCIUM 8.3 mg/dl (8.5-10.1); CREATININE 0.8 mg/dl (0.60-1.20); POTASSIUM 3.8 mmol/L (3.5-5.1)
[2017-01-10 06:36] LABS: C-REACTIVE PROTEIN 1.88 mg/dl (0-0.29)
[2017-01-10 07:18] VITALS: BP 130/91; PULSE 77; TEMP 37.2; O2SAT 92
[2017-01-10] MEDS: PANTOprazole SOD 40 MG TAB PO SCH (08:03)
[2017-01-10] MEDS: GABAPENTIN 800 MG TAB PO SCH ×3 (08:03→20:57)
[2017-01-10] MEDS: ROSUVASTATIN CALCIUM 20 MG TAB PO SCH (08:03)
[2017-01-10] MEDS: FLUTICASONE/SALMETEROL (ADVAIR) 500/50 INH 14 PUFF INH SCH ×2 (08:03→20:59)
[2017-01-10] MEDS: LORATADINE 10 MG TAB PO SCH (08:03)
[2017-01-10] MEDS: CLOPIDOGREL BISULFATE 75 MG TAB PO SCH (08:03)
[2017-01-10] MEDS: ENOXAPARIN 40 MG/0.4 ML SYR SQ SCH (08:04)
[2017-01-10] MEDS: ACETAMINOPHEN 325 MG TAB PO PRN ×2 (08:05→11:54)
[2017-01-10] MEDS: INSULIN ASPART 100 UNITS/ML 3 ML PEN SC SCH ×4 (08:10→21:00)
[2017-01-10] MEDS ORDERED: VANC1INJ94 IV (10:52)
[2017-01-10] MEDS: VANCOMYCIN INJ 1,750 MG in SODIUM CHLORIDE 0.9% 500ML 500 ML IV SCH ×2 (11:53→21:00)
[2017-01-10 15:02] VITALS: BP 126/84; PULSE 78; TEMP 36.7; O2SAT 95
[2017-01-10] MEDS: FLUOXETINE HCL 20 MG CAP PO SCH (20:58)
[2017-01-10] MEDS: AMITRIPTYLINE HCL 25 MG TAB PO SCH (20:58)
[2017-01-10] MEDS: METOPROLOL SUCC 50MG EXT REL TAB PO SCH (20:59)
[2017-01-10] MEDS: MONTELUKAST SOD 10 MG TAB PO SCH (20:59)
[2017-01-10 23:54] VITALS: BP 152/60; PULSE 75; TEMP 37.3; O2SAT 94
--- NOTE | 2017-01-11 00:30 | Hospitalist Progress Note ---
Hospitalist Progress Note Date of Service Jan 10, 2017. Subjective Pt evaluation today including: conversation w/ patient Pt doing well, is reluctant to not take IV morphine even though she states she knows she can't take it when she goes home and she will "tough it out." Afebrile , Crp trending downward although WBC count up slightly. Itching less around PICC site All Other Systems: Reviewed and Negative Objective Vital Signs Date Time Temp Pulse Resp B/P (MAP) Pulse Ox O2 Delivery O2 Flow Rate FiO2 01/10/17 23:54 37.3 75 20 152/60 (90) 94 Room Air 01/10/17 16:00 Room Air 01/10/17 15:02 36.7 78 18 126/84 (98) 95 01/10/17 11:23 Room Air 01/10/17 07:18 37.2 77 18 130/91 (104) 92 Physical Exam General Appearance: WD/WN, no apparent distress, + obese Eyes: normal inspection, sclerae normal ENT: hearing grossly normal Neck: trachea midline Respiratory/Chest: lungs clear, normal breath sounds, no respiratory distress, no accessory muscle use Cardiovascular: regular rate, rhythm, no edema, no gallop, no murmur Abdomen: normal bowel sounds, non tender, soft Extremities: + pertinent finding (no erythema or edema, minimal tenderness to palpation while distracted with touching legs) Neurologic/Psychiatric: alert, + pertinent finding (anxious) Skin: normal color, warm/dry, + pertinent finding (RUE PICC line with minimal surrounding erythema lateral to dressing) Laboratory Results Last 24 Hours Test 01/10/17 05:45 01/10/17 07:31 01/10/17 11:17 01/10/17 16:09 White Blood Count 13.46 K/uL Red Blood Count 3.59 M/uL Hemoglobin 10.4 g/dL Hematocrit 31.8 % Mean Corpuscular Volume 88.6 fL Mean Corpuscular Hemoglobin 29.0 pg Mean Corpuscular Hemoglobin Concent 32.7 g/dl Platelet Count 363 K/uL Mean Platelet Volume 9.5 fL Neutrophils (%) (Auto) 62.5 % Lymphocytes (%) (Auto) 20.2 % Monocytes (%) (Auto) 10.5 % Eosinophils (%) (Auto) 5.8 % Basophils (%) (Auto) 0.7 % Neutrophils # (Auto) 8.41 K/uL Lymphocytes # (Auto) 2.72 K/uL Monocytes # (Auto) 1.42 K/uL Eosinophils # (Auto) 0.78 K/uL Basophils # (Auto) 0.09 K/uL RDW Standard Deviation 47.5 fL RDW Coefficient of Variation 14.5 % Immature Granulocyte % (Auto) 0.3 % Immature Granulocyte # (Auto) 0.04 K/uL Erythrocyte Sedimentation Rate 40 mm/hr Sodium Level 140 mmol/L Potassium Level 3.8 mmol/L Chloride Level 105 mmol/L Carbon Dioxide Level 31 mmol/L Anion Gap 4.0 mmol/L Blood Urea Nitrogen 10 mg/dl Creatinine 0.80 mg/dl Est Creatinine Clear Calc Drug Dose 91.8 ml/min Estimated GFR () 94.2 Estimated GFR (Non- 81.3 BUN/Creatinine Ratio 12.1 Random Glucose 188 mg/dl Calcium Level 8.3 mg/dl C-Reactive Protein 1.88 mg/dl Bedside Glucose 150 mg/dl 147 mg/dl 160 mg/dl Test 01/10/17 20:45 Bedside Glucose 170 mg/dl Assessment and Plan 56 y/o female with a history of [place], HTN, HLD, DM II, asthma, hypothyroidism, depression, migraines, Morbid obesity, chronic back pain and GERD, Chronic pain syndrome and opioid dependence, Neuropathy, Asthma, previous Right leg wound infected with MRSA, Chronic lower back pain, degenerative disc disease lumbar spine with old compression fractures, Small bilateral renal cysts, Depression/ anxiety, and a stress-induced CM, who presented to the ED on 01/06 with worsening swelling, redness, and pain in the right lower extremity. Pt afebrile but tachycardic in ED, BP stable and non-hypoxic. WBC 22.05. BLE venous Doppler ultrasound negative for DVT. CXR no acute disease. R ankle x- ray soft tissue swelling, no fractures. She is admitted here with bilateral LE cellulitis and sepsis. With Coag neg Staph 1/4 bottles in her blood cultures Sepsis, bilateral lower extremity cellulitis-remains afebrile, leukocytosis slightly up again today to 13 but Crp continues to trend downward, ESR stable. Cellulitis completely resolved on LEs Coag neg Staph in 1/4 bottles, likely contaminant. Repeat BCxs NGTD Source of infection unclear, but does have a few excoriations on her legs and cuts toenails very short. Also with morbid obesity and venous insufficiency likely contributing. She reports dropping a frozen chicken on her left pinky toe several months ago and it was swollen for a while but has since resolved. She has a history of MRSA wound infections. ECHO no vegetation on valves Pain out of proportion to exam anywhere on body that she is touched--> discussed possibility of FM -Continue Vanco IV x 14 days as per ID recommendation, Zosyn discontinued -f/u Repeat blood cultures -has PICC line in place -ID consultation appreciated - follow WBC count, ESR, CRP -Pain control-discontinue IV morphine as I feel she is not really needing this as cellulitis is resolved, continue oxycodone prn -consider referral to Rheum as outpt for eval for FM -recommended compression stockings and treatment for venous insufficiency, weight loss programs to prevent future occurrences of LE infections -hopeful to dc to home tomorrow once Home Infusion arranged UTI-lactobacillus on Ur cx--> unclear if true infection especially as UA had many Epis, but Zosyn would have covered this, resolved Allergic reaction to adhesive on PICC-->much improved today -continue benadryl prn Fall, right elbow pain- elbow x-ray neg for fracture. pain resolved H/o stress-induced cardiomyopathy, HTN, HLD--stable -Recent NSTEMI 08/30/16 thought to be stress-induced, cardiac cath showed mild non -obstructive CAD -Continue Plavix, Toprol 100 mg PO hs, and Crestor 20 mg PO qd DM II- HgbA1c 7.7%, glucose checks here fairly well controlled -Pt recently stopped taking Actos and has been diet controlled -Insulin sliding scale -Check BSGs q ac and qhs Asthma, seasonal allergies -Continue Singulair 10 mg PO qd, Claritin 10 mg PO qd, Advair 1 puff inh BID and albuterol prn Hypothyroidism-TSH mildly elevated at 5 -Continue Synthroid 150 mcg PO qd -f/u TSH as outpt when not ill Anxiety and depression-exacerbated by hospitalization -Continue amitriptyline 50 mg PO qhs and Prozac 40 mg PO qd -supportive care Migraines-none currently -Continue Midrin 1 capsule q4h prn migraine Chronic back pain, chronic pain syndrome, opioid dependence--> suspect FM as above -Continue oxycodone 30 mg PO q6h, gabapentin 800 mg PO TID, and amitriptyline -Encouraged weaning off of chronic opioids GERD -Continue PPI DVT prophylaxis -Enoxaparin 40 mg SC q24h Code Status -Level I, FULL RESUSCITATION STATUS Dispo- to home in AM
[2017-01-11] MEDS: OXYCODONE HCL IR 5 MG TAB (IMMEDIATE RELEASE) PO PRN ×3 (01:17→10:11)
[2017-01-11 05:57] LABS: BASO % 0.9 %; BASO ABS # 0.12 K/uL (0-0.2); COMPLETE YES; HEMATOCRIT 33.6 % (37-47); IG% 0.3 %; LYMPH % 21.7 %; LYMPH ABS # 2.87 K/uL (1.2-3.4); MEAN CELL VOLUME 88.9 fL (80-100); MEAN CORPUSCULAR HEMOGLOBIN 28.3 pg (25-34); MEAN CORPUSCULAR HGB CONC 31.8 g/dl (32-36); MEAN PLATELET VOLUME 9.8 fL (7.4-10.4); MONO % 10.7 %; NEUT % 59.4 %; PLATELET COUNT 417 K/uL (130-400); RED BLOOD COUNT 3.78 M/uL (4.2-5.4); WHITE BLOOD COUNT 13.23 K/uL (4.8-10.8)
[2017-01-11] MEDS: LEVOTHYROXINE 150 MCG TAB PO SCH (05:58)
[2017-01-11] MEDS: OXYCODONE HCL IR 30 MG TAB (IMMEDIATE RELEASE) PO SCH ×2 (05:58→12:09)
[2017-01-11 06:25] LABS: BUN/CREATININE RATIO 15.1 (10-20); C-REACTIVE PROTEIN 1.52 mg/dl (0-0.29); CALCIUM 8.5 mg/dl (8.5-10.1); CREATININE 0.67 mg/dl (0.60-1.20); POTASSIUM 4.1 mmol/L (3.5-5.1)
[2017-01-11] MEDS: INSULIN ASPART 100 UNITS/ML 3 ML PEN SC SCH ×2 (06:30→11:00)
[2017-01-11 07:42] VITALS: BP 132/84; PULSE 73; TEMP 36.7; O2SAT 90
[2017-01-11] MEDS: PANTOprazole SOD 40 MG TAB PO SCH (09:07)
[2017-01-11] MEDS: LORATADINE 10 MG TAB PO SCH (09:07)
[2017-01-11] MEDS: ENOXAPARIN 40 MG/0.4 ML SYR SQ SCH (09:08)
[2017-01-11] MEDS: GABAPENTIN 800 MG TAB PO SCH (09:08)
[2017-01-11] MEDS: CLOPIDOGREL BISULFATE 75 MG TAB PO SCH (09:08)
[2017-01-11] MEDS: ROSUVASTATIN CALCIUM 20 MG TAB PO SCH (09:08)
[2017-01-11] MEDS: FLUTICASONE/SALMETEROL (ADVAIR) 500/50 INH 14 PUFF INH SCH (09:09)
[2017-01-11] MEDS: VANCOMYCIN INJ 1,750 MG in SODIUM CHLORIDE 0.9% 500ML 500 ML IV SCH (09:14)
[2017-01-11] MEDS ORDERED: BND25X PO (09:33)
--- NOTE | 2017-01-11 09:40 | Discharge Instructions ---
Discharge Instructions Date of Service Jan 11, 2017. Admission Reason for Admission: Cellulitis, Sepsis Discharge Discharge Diagnosis / Problem: Bilateral lower extremity cellulitis, sepsis Discharge Goals Goal(s): Improve disease control, Therapeutic intervention Activity Recommendations Activity Limitations: resume your previous activity Exercise/Sports Limitations: gradually increase as tolerated Shower/Bathe: keep incision dry (keep PICC line dry) . Instructions / Follow-Up Instructions / Follow-Up You were admitted with cellulitis of the lower extremities. This is an infection of the soft tissues. Your blood cultures did not show signs of true infection. You were treated with IV antibiotics which cover for the usual organisms (bacteria) that cause cellulitis. You will need to continue taking Vancomycin through your PICC line through 01/20/17. You will have home visiting RN come and assist you with your IV antibiotics and PICC line care. Please ensure the home RN changes your PICC line dressing in 1 week; we recommend using a TEGADERM covering (as you had an allergic reaction to the Sorbaview) and a BioPatch disc around your insertion site of the PICC to help prevent infection. Please follow up with Dr. Anderson as scheduled on 01/16/17. An appointment was made for you to see Dr. Joya of ID in Jan, but you may cancel that appointment unless Dr. Anderson feels you should keep it. Dr. Joya said she did not need to see you unless there was a continued or worsening problem. Please ask Dr. Anderson to repeat your CBC, ESR, Crp, and CMP labs in 1 week. Current Hospital Diet Patient's current hospital diet: Diabetes Type 2 Diet, AHA Diet (Heart Healthy) Discharge Diet Recommended Diet: AHA Diet (Heart Healthy), Diabetes Type 2 Diet Procedures Procedures Performed: PICC line insertion Doppler lower extremities Ankle xray Chest xray Pending Studies Studies pending at discharge: yes List of pending studies: Final repeat Blood culture results from 01/07/17-no growth so far Laboratory Results Last 24 Hours Test 01/10/17 11:17 01/10/17 16:09 01/10/17 20:45 01/11/17 05:03 Bedside Glucose 147 mg/dl 160 mg/dl 170 mg/dl White Blood Count 13.23 K/uL Red Blood Count 3.78 M/uL Hemoglobin 10.7 g/dL Hematocrit 33.6 % Mean Corpuscular Volume 88.9 fL Mean Corpuscular Hemoglobin 28.3 pg Mean Corpuscular Hemoglobin Concent 31.8 g/dl Platelet Count 417 K/uL Mean Platelet Volume 9.8 fL Neutrophils (%) (Auto) 59.4 % Lymphocytes (%) (Auto) 21.7 % Monocytes (%) (Auto) 10.7 % Eosinophils (%) (Auto) 7.0 % Basophils (%) (Auto) 0.9 % Neutrophils # (Auto) 7.85 K/uL Lymphocytes # (Auto) 2.87 K/uL Monocytes # (Auto) 1.42 K/uL Eosinophils # (Auto) 0.93 K/uL Basophils # (Auto) 0.12 K/uL RDW Standard Deviation 47.2 fL RDW Coefficient of Variation 14.5 % Immature Granulocyte % (Auto) 0.3 % Immature Granulocyte # (Auto) 0.04 K/uL Erythrocyte Sedimentation Rate 38 mm/hr Sodium Level 140 mmol/L Potassium Level 4.1 mmol/L Chloride Level 104 mmol/L Carbon Dioxide Level 29 mmol/L Anion Gap 7.0 mmol/L Blood Urea Nitrogen 10 mg/dl Creatinine 0.67 mg/dl Est Creatinine Clear Calc Drug Dose 109.6 ml/min Estimated GFR () 112.3 Estimated GFR (Non- 96.9 BUN/Creatinine Ratio 15.1 Random Glucose 114 mg/dl Calcium Level 8.5 mg/dl C-Reactive Protein 1.52 mg/dl Test 01/11/17 07:03 Bedside Glucose 121 mg/dl Hemoglobin A1c Test 01/06/17 10:37 Range/Units Estimated Average Glucose 174 mg/dl Hemoglobin A1c 7.7 H 4.5-5.6 % Medical Emergencies . Who to Call and When: Medical Emergencies: If at any time you feel your situation is an emergency, please call 911 immediately. . Non-Emergent Contact Non-Emergency issues call your: Primary Care Provider Call Non-Emergent contact if: temperature is above 100.5, your pain is not controlled, your pain is worsening, your pain is unusual for you, your pain is concerning you, wound has increased drainage, wound has increased redness, wound has increased pain, you have any medication questions . . "Provider Documentation" section prepared by Marina Gallardo. . VTE Core Measure Inpt VTE Proph given/why not?: Enoxaparin (Lovenox)SQ
--- NOTE | 2017-01-11 09:55 | Discharge Summary ---
Discharge Summary Date of Service Jan 11, 2017. Discharge Summary Admission Date: Jan 06, 2017 at 09:27 Discharge Date: Jan 11, 2017 Discharge Disposition: Home with services Principal Diagnosis: Lower extremity cellulitis, sepsis Problems/Secondary Diagnoses: Anxiety disorder Asthma Degenerative arthritis of knee Depressive Disorder Nec Diab Niyah Wo Compl, Type Ii Or Unspec Type, Not Uncntrld Esophageal Reflux Hx-Venous Thrombosis&Embolism Hyperlipidemia Nec/Nos Hypertension Hypothyroidism Nos Lumbar Disc Displacement Lumbosacral Neuritis Nos Morbid Obesity Osteoporosis Nos Splenosis History of stress-induced cardiomyopathy with NSTEMI but normal cardiac catheterization Migraines Opioid dependence Neuropathy History of MRSA skin infection History of vertebral compression fractures Small bilateral renal cysts Leukocytosis UTI-lactobacillus Allergic reaction to Sorbaview adhesive Fall with right elbow contusion Seasonal allergies Immunizations: Have You Had Influenza Vaccine: No Influenza Vaccine Date: Jan 07, 2013 History of Tetanus Vaccine?: Unknown History of Pneumococcal: Unknown Pneumococcal Date: Jan 08, 2012 History of Hepatitis B Vaccine: Unknown Procedures: PICC line insertion Chest xray Bilateral LE Dopplers-neg for DVT Ankle xray-soft tissue swelling Right elbow xray-degenerative change, no fracture Consultations: Infectious Disease Medication Reconciliation New Medications: Vancomycin HCl in Sodium Chlor (VANCOMYCIN in NSS) 1 Inj Inj 1750 MG IV Q12 for 10 Days, BAG last dose 01/20/17 Diphenhydramine HCl (Diphenhydramine HCl) 25 Mg Cap 25 MG PO Q4H PRN for itching for 30 Days, CAP Continued Medications: Nyoxylwcledis-Pttunqrsrdwru-Vv (Isometheptene/Dichloralph 325-65-100 mg) 1 Cap Cap 1 CAP PO Q4H PRN for Migraine Albuterol Hfa (Ventolin Hfa) 200 Puffs/38617 Mcg Aers 2 PUFFS INH QID PRN for Wheezing Albuterol Sulf (Albuterol Sulfate) 2.5 Mg/0.5 Ml Nebu 1 DOSE NEB Q4 PRN for Wheezing Amitriptyline Hcl (Amitriptyline Hcl) 50 Mg Tab 50 MG PO HS, TAB Clopidogrel (Plavix) 75 Mg Tab 75 MG PO DAILY, TAB Fluoxetine (Prozac) 40 Mg Cap 40 MG PO HS, CAP Fluticasone Prop/Salmeterol (Advair Diskus 500/50 60 Dose) 1 Ea Aerp 1 PUFF INH BID, INHALER Gabapentin (Neurontin) 800 Mg Tab 800 MG PO TID, TAB Levothyroxine Sodium (Synthroid) 150 Mcg Tab 150 MCG PO QAM, TAB Loratadine (Claritin) 10 Mg Tab 10 MG PO DAILY PRN for Allergy Symptoms, TAB Metoprolol Succinate (Metoprolol Succinate ER) 100 Mg Tabcr 100 MG PO DAILY Montelukast Sodium (Singulair) 10 Mg Tab 10 MG PO QAM, TAB Nitroglycerin (Nitrostat) 0.4 Mg Tab 0.4 MG UT PRN PRN for chest pain, BTL Omeprazole (Prilosec) 40 Mg Cap 40 MG PO QAM, CAP Oxycodone Ir (Roxicodone Ir) 30 Mg Tab 30 MG PO Q6 PRN for Pain Rosuvastatin Calcium (Crestor) 20 Mg Tab 1 TAB PO DAILY for 30 Days, #30 TAB 0 Refills Discharge Exam Pt feeling well, pain is controlled, afebrile. Denies CP/SOB, no headache, no abd pain, no diarrhea or constipation. No vaginal itching, no oral thrush or sore throat. Physical Exam Vitals reviewed and are normal General Appearance: WD/WN, no apparent distress, + obese Eyes: normal inspection, sclerae normal ENT: hearing grossly normal Neck: trachea midline Respiratory/Chest: lungs clear, normal breath sounds, no respiratory distress, no accessory muscle use Cardiovascular: regular rate, rhythm, no edema, no gallop, no murmur Abdomen: normal bowel sounds, non tender, soft Extremities: + pertinent finding (no erythema or edema, minimal tenderness to palpation right medial calf with light touch) Neurologic/Psychiatric: alert, normal affect Skin: normal color, warm/dry, + pertinent finding (RUE PICC line with minimal surrounding erythema lateral to dressing) Review of Systems: Constitutional: No fever, No chills Eyes: No problem reported ENT: No problem reported Respiratory: No problem reported Cardiovascular: No problem reported Abdomen: No problem reported Musculoskeletal: + joint pain (chronic knee and back pain) Genitourinary - Female: No vaginal itching, No problem reported Neurologic: No problem reported Psychiatric: No problem reported Endocrine: No problem reported Hematologic / Lymphatic: No problem reported Integumentary: No problem reported Hospital Course 56 y/o female with a history of GA, HTN, HLD, DM II, asthma, hypothyroidism, depression, migraines, Morbid obesity, chronic back pain and GERD, Chronic pain syndrome and opioid dependence, Neuropathy, Asthma, previous Right leg wound infected with MRSA, Chronic lower back pain, degenerative disc disease lumbar spine with old compression fractures, Small bilateral renal cysts, Depression/ anxiety, and a stress-induced CM, who presented to the ED on 01/06 with worsening swelling, redness, and pain in the right lower extremity. Pt afebrile but tachycardic in ED, BP stable and non-hypoxic. WBC 22.05. BLE venous Doppler ultrasound negative for DVT. CXR no acute disease. R ankle x- ray soft tissue swelling, no fractures. She is admitted here with bilateral LE cellulitis and sepsis. With Coag neg Staph 1/4 bottles in her blood cultures likely contaminant. Repeat BCxs NGTD Sepsis, bilateral lower extremity cellulitis-remains afebrile, leukocytosis stable but mildly elevated at 13 but Crp continues to trend downward, ESR starting to trend downward at 39 down from 40. Cellulitis completely resolved on LEs Coag neg Staph in 1/4 bottles, likely contaminant. Repeat BCxs NGTD and should be followed by PCP Nidus for cellulitis unclear, but does have a few excoriations on her legs and cuts toenails very short. Also with morbid obesity and venous insufficiency likely contributing. She reports dropping a frozen chicken on her left pinky toe several months ago and it was swollen for a while but has since resolved- not likely to have caused cellulitis months later. She has a history of MRSA wound infections. ECHO no vegetation on valves Pain out of proportion to exam anywhere on body that she is touched--> discussed possibility of FM -Continue Vanco IV x 14 days as per ID recommendation, Zosyn discontinued. ID recommended IV abx despite negative BCxs given morbid obesity and h/o recurrent infections, needs good penetration -has PICC line in place-to get PICC care at home with RN -ID consultation appreciated-no f/u with ID recommended unless having worsening or recurrence - follow WBC count, ESR, CRP -Pain control-received IV morphine and oxycodone prn--> return to home doses oxycodone as prescribed by her PM -consider referral to Rheum as outpt for eval for FM -recommended compression stockings and treatment for venous insufficiency, weight loss programs to prevent future occurrences of LE infections UTI-lactobacillus on Ur cx--> unclear if true infection especially as UA had many Epis (contaminated sample), but Zosyn would have covered this, resolved Allergic reaction to adhesive on PICC-->much improved today -continue benadryl prn -only use Tegaderm Fall, right elbow contusion- elbow x-ray neg for fracture. pain resolved H/o stress-induced cardiomyopathy, HTN, HLD--stable -Recent NSTEMI 08/30/16 thought to be stress-induced, cardiac cath showed mild non -obstructive CAD -Continue Plavix, Toprol 100 mg PO hs, and Crestor 20 mg PO qd DM II- HgbA1c 7.7%, glucose checks here fairly well controlled -Pt recently stopped taking Actos and has been diet controlled -Insulin sliding scale used but minimal insulin required Asthma, seasonal allergies -Continue Singulair 10 mg PO qd, Claritin 10 mg PO qd, Advair 1 puff inh BID and albuterol prn Hypothyroidism-TSH mildly elevated at 5 -Continue Synthroid 150 mcg PO qd -f/u TSH as outpt when not ill Anxiety and depression-exacerbated by hospitalization -Continue amitriptyline 50 mg PO qhs and Prozac 40 mg PO qd -supportive care Migraines-none currently -Continue Midrin 1 capsule q4h prn migraine Chronic back pain, chronic pain syndrome, opioid dependence--> suspect FM as above -Continue oxycodone 30 mg PO q6h, gabapentin 800 mg PO TID, and amitriptyline -Encouraged weaning off of chronic opioids GERD -Continue PPI Dispo- to home today in stable condition with Home Health Total Time Spent: Greater than 30 minutes This includes examination of the patient, discharge planning, medication reconciliation, and communication with other providers. Discharge Instructions Please refer to the electronic Patient Visit Report (Discharge Instructions) for additional information. Follow-Up PCP within 1 week Repeat CBC, CMP, ESR, CRP in 1 week Additional Copies To Norberto Andreson MD
[2017-01-11 13:25] VITALS: BP 132/84; PULSE 73; TEMP 36.7; O2SAT 90
[2017-01-12] MEDS ORDERED: VANCOMYCIN TROUGH SCH (11:30)
== END 2017-01-11 14:20 | disposition home health service (06) | DRG 872 ==
LOC: C.EDB 02:51 → C.4E 09:27 → ENRESERV 09:41
PROVIDERS: ADMIT Family Medicine; ATTEND Family Medicine
PROC: 02HV33Z Insertion of Infusion Device into Superior Vena Cava, Percutaneous Approach (ICD-10-PCS; principal; 2017-01-07)
DX: A41.9 Sepsis, unspecified organism (principal); L03.115 Cellulitis of right lower limb; F11.20 Opioid dependence, uncomplicated; I51.81 Takotsubo syndrome; N39.0 Urinary tract infection, site not specified; J45.909 Unspecified asthma, uncomplicated; E11.9 Type 2 diabetes mellitus without complications; K21.9 Gastro-esophageal reflux disease without esophagitis; Z91.040 Latex allergy status; Z88.2 Allergy status to sulfonamides; B96.89 Other specified bacterial agents as the cause of diseases classified elsewhere; F41.8 Other specified anxiety disorders; G43.909 Migraine, unspecified, not intractable, without status migrainosus; Z87.891 Personal history of nicotine dependence; S90.31XA Contusion of right foot, initial encounter; E66.01 Morbid (severe) obesity due to excess calories; E03.9 Hypothyroidism, unspecified; Z86.14 Personal history of Methicillin resistant Staphylococcus aureus infection; G89.29 Other chronic pain; Z86.718 Personal history of other venous thrombosis and embolism; M81.0 Age-related osteoporosis without current pathological fracture; W19.XXXA Unspecified fall, initial encounter; Y92.009 Unspecified place in unspecified non-institutional (private) residence as the place of occurrence of the external cause

== ENCOUNTER → 2017-01-14 | Outpatient (CLI) | payer OTHER ==
[~2017-01-14] MED LIST changes: +ACET1CAP19 PO; -ACETTAB14 PO; -ACT30 PO; +AMT25 PO; +CARI350T28 PO; +DIPH25CA50 PO; -DOXY100C2 PO; -DOXY100C76 PO; -FRCT/ PO; +METH4PAK PO; -METO50TA16 PO; -OPANA ER PO; -OPANA PO; -PRMT25 PO; -TOPI100T20 PO; +TPRSR/100 PO; +VANC1INJ94 IV
[2017-01-14 20:40] LABS: ALT/SGPT 22 U/L (12-78); AST/SGOT 18 U/L (15-37); BLOOD UREA NITROGEN 7 mg/dl (7-18); BUN/CREATININE RATIO 8.2 (10-20); C-REACTIVE PROTEIN 0.53 mg/dl (0-0.29); CALCIUM 9.1 mg/dl (8.5-10.1); CARBON DIOXIDE 22 mmol/L (21-32); CHLORIDE 108 mmol/L (98-107); GLUCOSE 168 mg/dl (70-99); SODIUM 139 mmol/L (136-145)
[2017-01-14 20:41] LABS: HEMATOCRIT 41.1 % (37-47); MEAN CELL VOLUME 88.2 fL (80-100); MEAN CORPUSCULAR HEMOGLOBIN 28.5 pg (25-34); MEAN CORPUSCULAR HGB CONC 32.4 g/dl (32-36); MEAN PLATELET VOLUME 9.9 fL (7.4-10.4); PLATELET COUNT 468 K/uL (130-400); RED BLOOD COUNT 4.66 M/uL (4.2-5.4); WHITE BLOOD COUNT 15.09 K/uL (4.8-10.8)
[2017-01-14 20:42] LABS: ALB/GLOB RATIO 0.9 (0.9-2); ALKALINE PHOSPHATASE 117 U/L (45-117)
== END | disposition home or self-care (01) ==
LOC: C.LAB 19:14
PROVIDERS: ATTEND Internal Medicine Infectious Disease
DX: Z01.89 Encounter for other specified special examinations (principal)

== ENCOUNTER 2017-01-30 22:22 | Emergency (ER) | payer OTHER ==
[~2017-01-30] VITALS: Ht 154.9 cm; Wt 108.7 kg
[~2017-01-30 22:22] MED LIST changes: -AMT25 PO; +BND25X PO; -CARI350T28 PO; -DIPH25CA50 PO; -METH4PAK PO
[2017-01-30 22:25] VITALS: TEMP 36.6; Ht 154.9 cm; Wt 108.7 kg
[2017-01-30] MEDS ORDERED: ROSU20TA PO (22:58)
[2017-01-30] MEDS ORDERED: RANITIDINE HCL 150 MG TAB PO STA (23:39)
[2017-01-30] MEDS ORDERED: DEXAMETHASONE SOD INJ 10 MG/ML VIAL IM ONE (23:45)
--- NOTE | 2017-01-31 00:10 | EMERGENCY ROOM VISIT NOTE ---
History Report prepared by Mynor: Fátima Marr Under the Supervision of: Dr. Stephy Tineo D.O. First contact with patient: 23:01 Chief Complaint: ALLERGIC REACTION Stated Complaint: RASH, HIVES Nursing Triage Summary: Has rash on left neck and right hand/forearm, started yesterday afternoon went to PCP, used benadryl and hydrocortisone cream without relief. Continues to spread. Unknown exposure. History of Present Illness The patient is a 56 year old female who presents to the Emergency Room with complaints of an episode of an allergic reaction starting this morning. The patient states that she went to her PCP who told her to treat it with ointment and Benadryl. She reports that she has used both with no relief and it has continued to spread. She states that in a 3.5 hour time span she took 50 mg, 75 mg, and 100 mg of Benadryl. She notes that it started on her neck. The patient complains of extreme itching and watery liquid coming from the spots. The patient denies eating anything new, new soaps, and being near poison david. She notes that she has 2 cats, but has had them for a long time. Source of History: patient Onset: this morning Position: other (global) Quality: other (itchy) Timing: other (episode) Note: The patient complains of a watery liquid draining from the rash. The patient denies eating anything new, new soaps, and being near poison david. Review of Systems See HPI for pertinent positives & negatives. A total of 10 systems reviewed and were otherwise negative. Past Medical & Surgical Medical Problems: (1) Abdominal pain (2) ACS (acute coronary syndrome) (3) Acute renal failure (4) ELIO (acute kidney injury) (5) Anxiety State Nos (6) Asthma (7) Asthma (8) Back pain (9) Back pain (10) CHI (closed head injury) (11) Contusion of multiple sites (12) Contusion of multiple sites (13) Contusion of third finger, right (14) Degenerative arthritis of knee (15) Dehydration (16) Depressive Disorder Nec (17) Diab Niyah Wo Compl, Type Ii Or Unspec Type, Not Uncntrld (18) Esophageal Reflux (19) Fall (20) Fall due to slipping on ice or snow (21) Foot pain (22) Hx-Venous Thrombosis&Embolism (23) Hyperlipidemia Nec/Nos (24) Hypertension (25) Hypotension (26) Hypotension (27) Hypothyroidism Nos (28) Knee contusion (29) Left wrist pain (30) Leukocytosis (31) Lumbar Disc Displacement (32) Lumbar strain (33) Lumbosacral Neuritis Nos (34) Morbid Obesity (35) Nausea and vomiting (36) Nausea, vomiting, and diarrhea (37) Osteoporosis Nos (38) Positive blood culture (39) Post concussion syndrome (40) Right flank pain (41) Sepsis (42) SIRS (systemic inflammatory response syndrome) (43) Splenosis (44) UTI (urinary tract infection) Surgical Problems: (1) Hx of appendectomy (2) Hx of hernia repair Family History Asthma Diabetes mellitus FHx: cancer (skin) FHx: heart failure Gallbladder disease Heart disease Hypertension Kidney stones Social History Smoking Status: Former Smoker Alcohol Use: none Drug Use: none Marital Status: single Housing Status: lives with family Occupation Status: unemployed Current/Historical Medications Scheduled Amitriptyline Hcl (Amitriptyline Hcl), 50 MG PO HS Clopidogrel (Plavix), 75 MG PO DAILY Fluoxetine (Prozac), 40 MG PO HS Fluticasone Prop/Salmeterol (Advair Diskus 500/50 60 Dose), 1 PUFF INH BID Gabapentin (Neurontin), 800 MG PO TID Levothyroxine Sodium (Synthroid), 150 MCG PO QAM Methylprednisolone (Medrol Dosepak), 1 PKT PO UD Metoprolol Succinate (Metoprolol Succinate ER), 100 MG PO DAILY Montelukast Sodium (Singulair), 10 MG PO QAM Omeprazole (Prilosec), 40 MG PO QAM Oxycodone Ir (Roxicodone Ir), 1 TAB PO DAILY Rosuvastatin Calcium (Crestor), 20 MG PO DAILY Scheduled PRN Ewsowkxiojuos-Ilsbqpmnvxtfm-Zy (Isometheptene/Dichloralph 325-65-100 mg), 1 CAP PO Q4H PRN for Migraine Albuterol Hfa (Ventolin Hfa), 2 PUFFS INH QID PRN for Wheezing Albuterol Sulf (Albuterol Sulfate), 1 DOSE NEB Q4 PRN for Wheezing Loratadine (Claritin), 10 MG PO DAILY PRN for Allergy Symptoms Nitroglycerin (Nitrostat), 0.4 MG UT PRN PRN for chest pain Allergies Coded Allergies: Aspirin (Verified Allergy, Severe, SHORT OF BREATH, 01/30/17) Cephalexin (Verified Allergy, Severe, EDEMA OF FACE,LIPS,TONGUE, 01/30/17) Ketorolac Tromethamine (Verified Allergy, Severe, SHORTNESS OF BREATH, 01/30/17) Latex2 -Systemic Allergic Response (Verified Allergy, Severe, DIFFICULTY BREATHING, 01/30/17) NSAIDs (Verified Allergy, Severe, SHORT OF BREATH, 01/30/17) Sulfa Antibiotics (Verified Allergy, Unknown, UNKNOWN- HAD RXN WHEN LITTLE , 01/30/17) Simvastatin (Verified Adverse Reaction, Intermediate, myalgias, 01/30/17) Metformin (Verified Adverse Reaction, Mild, GI SYMPTOMS, 01/30/17) Uncoded Allergies: adhesive (Allergy, Mild, rash,blister, 01/11/17) SORBAVIEW adhesive dressing Physical Exam Vital Signs Date Time Temp Pulse Resp B/P (MAP) Pulse Ox O2 Delivery O2 Flow Rate FiO2 01/31/17 01:25 74 20 201/106 95 Room Air 01/30/17 23:48 79 20 161/101 94 Room Air 01/30/17 22:25 36.6 86 18 164/111 98 Room Air Physical Exam HEENT: Head - normocephalic and atraumatic Pupils are equal, round, and reactive to light. Extraocular eye muscles are intact, and sclera are anicteric. Nose - moist nasal mucosa without discharge. Mouth - moist buccal mucosa. Oropharynx is nonerythematous and there is no tonsillar exudate or edema noted. Neck: Supple; no JVD, nuchal rigidity, cervical lymphadenopathy. Heart: Regular rate and rhythm. There is a normal S1 and S2 with no murmurs, clicks, or gallops appreciated. Lungs: Clear to auscultation bilaterally with no wheezes, rales, or rhonchi. Abdomen: Soft, completely nontender, nondistended, with good bowel sounds. There are no palpable pulsatile masses or hepatosplenomegaly. There is no guarding, rigidity, or rebound noted. Extremities: No evidence of cyanosis, clubbing, or edema. There are easily palpable peripheral pulses. Skin: warm and dry with good turgor. Left neck has individual erythematous papules. The patient has erythematous papular lesions which appear to be scratched on her right lateral arm, right dorsal wrist, diffusely across left arm, and anterior chest. She also has linear papules on the right forehead. Medical Decision & Procedures Medications Administered Medications (Trade) Dose Ordered Sig/Sid Route Start Time Stop Time Status Last Admin Dose Admin Dexamethasone Sodium Phosphate (Decadron Inj) 10 mg NOW ONCE IM 01/30/17 23:45 01/30/17 23:46 DC 01/30/17 23:46 10 MG Ranitidine HCl (zANTac TAB) 150 mg NOW STAT PO 01/30/17 23:39 01/30/17 23:40 DC 01/30/17 23:46 150 MG Hydroxyzine HCl (Vistaril Tab) 25 mg NOW STAT PO 01/31/17 01:09 01/31/17 01:10 DC 01/31/17 01:09 25 MG Procedure 2339: Ordered Ranitidine HCl 150 mg PO. 2345: Ordered Decadron Inj 10 mg IM. 0109: Ordered Vistaril Tab 25 mg PO. ED Course 2332: Past medical records reviewed. The patient was evaluated in room C12B. A complete history and physical exam was performed. 2339: Ordered Ranitidine HCl 150 mg PO. 2345: Ordered Decadron Inj 10 mg IM. 0055: Upon reevaluation, the patient is still itching. She is going to get some Vistaril to take home. She verbalized agreement of the treatment plan. The patient was discharged home. 0109: Ordered Vistaril Tab 25 mg PO to go. Medical Decision This is a 56-year-old female patient who presents to the emergency department with increased itch secondary to a rash. Differential diagnoses include anaphylaxis, drug reaction, poison david, allergic reaction, urticaria. The areas of rash on the patient's body appear very different. Some of them appear to be consistent with hives or urticaria. Others look like insect bites. In fact, some of them are in a linear pattern the look to be possibly consistent with poison david. The patient denies any possible exposure to poison david. She has no new animals in the house. She does not spend much time outside. We will treat her as an acute allergic reaction at this time. I've asked to follow-up with her PCP if the symptoms persist for possible referral to dermatology. If symptoms acutely worsen or she develops any facial swelling or tongue swelling, she should return to the emergency department. The patient was discharged with a prescription for a Medrol Dosepak and follow-up instructions. Impression Primary Impression: Allergic reaction Scribe Attestation The scribe's documentation has been prepared under my direction and personally reviewed by me in its entirety. I confirm that the note above accurately reflects all work, treatment, procedures, and medical decision making performed by me. Departure Information Dispostion Home / Self-Care Prescriptions Methylprednisolone (MEDROL DOSEPAK) 4 Mg Rafy 1 PKT PO UD for 6 Days, #1 PKT Prov: Stephy Tineo, D.O. 01/31/17 Referrals Norberto Anderson MD (PCP) Forms HOME CARE DOCUMENTATION FORM, IMPORTANT VISIT INFORMATION Patient Instructions My [facility] Additional Instructions Rest. Take vistaril at home. Start Medrol dose pack in the AM You may continue to use benadryl - 50mg with zantac - 75 mg every 6 hours for itch. Follow up with PCP if symptoms not improving Problem Qualifiers Primary Impression: Allergic reaction Encounter type: initial encounter Qualified Codes: T78.40XA - Allergy, unspecified, initial encounter
[2017-01-31] MEDS ORDERED: hydrOXYzine HCL 25 MG TAB PO STA (01:09)
[2017-01-31] MEDS ORDERED: METH4PAK PO (01:15)
[2017-01-31 01:25] VITALS: BP 201/106; PULSE 74; O2SAT 95
== END 2017-01-31 01:27 | disposition home or self-care (01) ==
LOC: C.EDB 22:24 → C.EDC 01-31 01:27
DX: T78.40XA Allergy, unspecified, initial encounter (principal); X58.XXXA Exposure to other specified factors, initial encounter; F41.9 Anxiety disorder, unspecified; J45.909 Unspecified asthma, uncomplicated; F32.9 Major depressive disorder, single episode, unspecified; K21.9 Gastro-esophageal reflux disease without esophagitis; E78.5 Hyperlipidemia, unspecified; I10 Essential (primary) hypertension; E03.9 Hypothyroidism, unspecified; E66.01 Morbid (severe) obesity due to excess calories; Z68.42 Body mass index [BMI] 45.0-49.9, adult; M81.0 Age-related osteoporosis without current pathological fracture; Z87.440 Personal history of urinary (tract) infections; Z82.5 Family history of asthma and other chronic lower respiratory diseases; Z83.3 Family history of diabetes mellitus; Z80.9 Family history of malignant neoplasm, unspecified; Z82.49 Family history of ischemic heart disease and other diseases of the circulatory system; Z84.1 Family history of disorders of kidney and ureter; Z87.891 Personal history of nicotine dependence; Z79.01 Long term (current) use of anticoagulants; Z79.899 Other long term (current) drug therapy

== ENCOUNTER 2017-02-18 21:35 | Observation (INO) | payer OTHER ==
[~2017-02-18] VITALS: Ht 157.5 cm; Wt 108.3 kg
[~2017-02-18 21:35] MED LIST changes: -BND25X PO; -VANC1INJ94 IV
[2017-02-18] MEDS ORDERED: SODIUM CHLORIDE 0.9% 1000ML 1,000 ML IV SCH (21:50)
--- NOTE | 2017-02-18 22:02 | EMERGENCY ROOM VISIT NOTE ---
History Report prepared by Mynor: Christopher Wong Under the Supervision of: Dr. Jordan Tolbert M.D. First contact with patient: 21:44 Stated Complaint: CONFUSION History of Present Illness The patient is a 56 year old female who presents to the Emergency Room with complaints of dysarthria that began 6 hours ago. At this time, the patient's son noticed that she seemed more tired that usual. He also thought that she was having difficulty speaking. She laid down for a couple of hours, but her trouble speaking persisted. She also began experiencing some bilateral leg weakness. The patient states that she felt normal earlier in the day. She denies any headaches, dizziness, or lightheadedness currently. She has never had a stroke before. She has a history of PR and MRSA. She is not currently on blood thinners. After speaking with the patient's daughter on the phone, she reports that the patient has been mixing different drugs and consuming them recently. Source of History: patient Onset: 6 hours ago Position: other (Global) Symptom Intensity: moderate Quality: other (Dysarthria) Timing: constant Associated Symptoms: + fatigue, + weakness (Bilateral LE), No headache Review of Systems All systems have been listed, reviewed, and are negative other than those previously mentioned. Please see Additional Medical History Sheet. Past Medical & Surgical Medical Problems: (1) Abdominal pain (2) ACS (acute coronary syndrome) (3) Acute renal failure (4) ELIO (acute kidney injury) (5) Anxiety State Nos (6) Asthma (7) Asthma (8) Back pain (9) Back pain (10) CHI (closed head injury) (11) Contusion of multiple sites (12) Contusion of multiple sites (13) Contusion of third finger, right (14) Degenerative arthritis of knee (15) Dehydration (16) Depressive Disorder Nec (17) Diab Niyah Wo Compl, Type Ii Or Unspec Type, Not Uncntrld (18) Esophageal Reflux (19) Fall (20) Fall due to slipping on ice or snow (21) Foot pain (22) Hx-Venous Thrombosis&Embolism (23) Hyperlipidemia Nec/Nos (24) Hypertension (25) Hypotension (26) Hypotension (27) Hypothyroidism Nos (28) Knee contusion (29) Left wrist pain (30) Leukocytosis (31) Lumbar Disc Displacement (32) Lumbar strain (33) Lumbosacral Neuritis Nos (34) Morbid Obesity (35) Nausea and vomiting (36) Nausea, vomiting, and diarrhea (37) Osteoporosis Nos (38) Positive blood culture (39) Post concussion syndrome (40) Right flank pain (41) Sepsis (42) SIRS (systemic inflammatory response syndrome) (43) Splenosis (44) UTI (urinary tract infection) Surgical Problems: (1) Hx of appendectomy (2) Hx of hernia repair Family History Asthma Diabetes mellitus FHx: cancer (skin) FHx: heart failure Gallbladder disease Heart disease Hypertension Kidney stones Social History Smoking Status: Former Smoker Alcohol Use: none Drug Use: none Marital Status: single Housing Status: lives with family Occupation Status: unemployed Current/Historical Medications Scheduled Amitriptyline Hcl (Amitriptyline Hcl), 50 MG PO HS Carisoprodol (Soma), 1 TAB PO UD Clopidogrel (Plavix), 75 MG PO DAILY Fluoxetine (Prozac), 40 MG PO HS Fluticasone Prop/Salmeterol (Advair Diskus 500/50 60 Dose), 1 PUFF INH BID Gabapentin (Neurontin), 800 MG PO TID Levothyroxine Sodium (Synthroid), 150 MCG PO QAM Metoprolol Succinate (Metoprolol Succinate ER), 100 MG PO DAILY Montelukast Sodium (Singulair), 10 MG PO QAM Omeprazole (Prilosec), 40 MG PO QAM Rosuvastatin Calcium (Crestor), 20 MG PO DAILY Scheduled PRN Albuterol Hfa (Ventolin Hfa), 2 PUFFS INH QID PRN for Wheezing Albuterol Sulf (Albuterol Sulfate), 1 DOSE NEB Q4 PRN for Wheezing Nitroglycerin (Nitrostat), 0.4 MG UT PRN PRN for chest pain Allergies Coded Allergies: Aspirin (Verified Allergy, Severe, SHORT OF BREATH, 02/18/17) Cephalexin (Verified Allergy, Severe, EDEMA OF FACE,LIPS,TONGUE, 02/18/17) Ketorolac Tromethamine (Verified Allergy, Severe, SHORTNESS OF BREATH, ) Latex2 -Systemic Allergic Response (Verified Allergy, Severe, DIFFICULTY BREATHING, 02/18/17) NSAIDs (Verified Allergy, Severe, SHORT OF BREATH, 02/18/17) Sulfa Antibiotics (Verified Allergy, Unknown, UNKNOWN- HAD RXN WHEN LITTLE , 02/18/17) Simvastatin (Verified Adverse Reaction, Intermediate, myalgias, 02/18/17) Metformin (Verified Adverse Reaction, Mild, GI SYMPTOMS, 02/18/17) Uncoded Allergies: adhesive (Allergy, Mild, rash,blister, 01/11/17) SORBAVIEW adhesive dressing Physical Exam Vital Signs Date Time Temp Pulse Resp B/P (MAP) Pulse Ox O2 Delivery O2 Flow Rate FiO2 02/18/17 23:34 98 Room Air 02/18/17 23:32 83 18 114/62 98 Room Air 02/18/17 22:00 36.9 96 18 126/88 96 Room Air 02/18/17 21:50 94 Physical Exam GENERAL: Patient awake, alert, oriented x 3. Patient follows commands. Patient is slow to answer questions and has some dysarthria. Patient does not appear toxic. Patient is adequately hydrated and well-nourished. SKIN: No erythema, pallor, cyanosis or rash HEENT: Normal head, pupils equal, reactive to light and accommodation. Ears normal. Oral cavity and posterior pharynx appear normal. Neck: Without adenopathy, no neck vein distention. LUNGS: Clear to auscultation. No wheezes, no rales, no rhonchi. HEART: No murmurs. No gallops. No rubs ABDOMEN: Obese, nontender. EXTREMITIES: No signs of trauma. No pedal or pretibial edema. No calf or thigh tenderness. NEUROLOGIC: Patient is oriented x3. Slow to answer questions with dysarthria present. Cranial nerves II-XII within normal limits. Moves all 4 extremities well. No gross motor sensory function deficits. NIH stroke score very low. Medical Decision & Procedures ER Provider Diagnostic Interpretation: Radiology results as stated below per my review and radiologist interpretation: HEAD CT NONCONTRAST CT DOSE: 537.48 mGy.cm HISTORY: Confusion. Stroke TECHNIQUE: Multiaxial CT images of the head were performed without the use of intravenous contrast. Automated exposure control was utilized for this study. A dose lowering technique was utilized adhering to the principles of ALARA. Comparison: Head CT 05/10/2014. Findings: Moderate mucosal thickening within the right sphenoid sinus and left maxillary sinus. The mastoid air cells are clear. The calvarium and skull base are intact. The ventricles and sulci are within normal limits. There is no mass, hematoma, midline shift, or acute infarct. Impression: No acute intracranial abnormality. Electronically signed by: Matteo Rojas M.D. 02/18/2017 10:47 PM Dictated Date/Time: 02/18/2017 10:42 PM Laboratory Results 02/18/17 22:12 Red Blood Count 4.25, Mean Corpuscular Volume 86.6, Mean Corpuscular Hemoglobin 28.5, Mean Corpuscular Hemoglobin Concent 32.9, Mean Platelet Volume 9.9, Neutrophils (%) (Auto) 55.8, Lymphocytes (%) (Auto) 26.1, Monocytes (%) (Auto) 8.3, Eosinophils (%) (Auto) 8.4, Basophils (%) (Auto) 1.1, Neutrophils # (Auto) 6.54, Lymphocytes # (Auto) 3.06, Monocytes # (Auto) 0.97, Eosinophils # (Auto) 0.99, Basophils # (Auto) 0.13 02/18/17 22:12 02/18/17 23:17 Test 02/18/17 21:55 02/18/17 22:12 Urine Opiates Screen POS (NEG) Urine Methadone, Qualitative NEG (NEG) Urine Barbiturates NEG (NEG) Urine Phencyclidine (PCP) Level NEG (NEG) Ur Amphetamine/Methamphetamine NEG (NEG) MDMA (Ecstasy) Screen NEG (NEG) Urine Benzodiazepines Screen NEG (NEG) Urine Cocaine Metabolite NEG (NEG) Urine Marijuana (THC) NEG (NEG) White Blood Count 11.73 K/uL (4.8-10.8) Red Blood Count 4.25 M/uL (4.2-5.4) Hemoglobin 12.1 g/dL (12.0-16.0) Hematocrit 36.8 % (37-47) Mean Corpuscular Volume 86.6 fL (80-100) Mean Corpuscular Hemoglobin 28.5 pg (25-34) Mean Corpuscular Hemoglobin Concent 32.9 g/dl (32-36) Platelet Count 397 K/uL (130-400) Mean Platelet Volume 9.9 fL (7.4-10.4) Neutrophils (%) (Auto) 55.8 % Lymphocytes (%) (Auto) 26.1 % Monocytes (%) (Auto) 8.3 % Eosinophils (%) (Auto) 8.4 % Basophils (%) (Auto) 1.1 % Neutrophils # (Auto) 6.54 K/uL (1.4-6.5) Lymphocytes # (Auto) 3.06 K/uL (1.2-3.4) Monocytes # (Auto) 0.97 K/uL (0.11-0.59) Eosinophils # (Auto) 0.99 K/uL (0-0.5) Basophils # (Auto) 0.13 K/uL (0-0.2) RDW Standard Deviation 45.7 fL (36.4-46.3) RDW Coefficient of Variation 14.6 % (11.5-14.5) Immature Granulocyte % (Auto) 0.3 % Immature Granulocyte # (Auto) 0.04 K/uL (0.00-0.02) Prothrombin Time 10.0 SECONDS (9.0-12.0) Prothromb Time International Ratio 0.9 (0.9-1.1) Activated Partial Thromboplast Time 22.6 SECONDS (21.0-31.0) Partial Thromboplastin Ratio 0.9 Anion Gap 6.0 mmol/L (3-11) Estimated GFR () 91.4 Estimated GFR (Non- 78.9 BUN/Creatinine Ratio 12.0 (10-20) Calcium Level 8.2 mg/dl (8.5-10.1) Troponin I < 0.015 ng/ml (0-0.045) Laboratory results as stated above per my review. Medications Administered Medications (Trade) Dose Ordered Sig/Sid Route Start Time Stop Time Status Last Admin Dose Admin Sodium Chloride 1,000 ml @ 50 mls/hr Q20H IV 02/18/17 21:50 03/20/17 21:49 02/18/17 23:32 50 MLS/HR ECG Indication: other (Neurologic Symptoms) Rate (beats per minute): 82 Rhythm: normal sinus Findings: left axis deviation, prolonged QT, no ectopy ED Course 2143: Past medical records reviewed. The patient was evaluated in room C3. A complete history and physical examination was performed. 0: Ordered Sodium Chloride 1000 ml @ 50 mls/hr IV 2300: Upon reevaluation, the patient is back to her baseline and is speaking normally. 2334: Upon reevaluation, the patient is resting. I discussed today's findings with her. She verbalized agreement of the treatment plan. I spoke with Dr. Pope of the [facility] to evaluate the patient for further management. Medical Decision I considered multiple diagnoses including: TIA, CVA, and encephalopathy. The patient arrived he was some confusion and dysarthria. She had difficulty finding words. The patient's last well-known time is unknown. During his stay patient's symptoms seem to have completely resolved. Her highest stroke score went from a 5 down to a 0. Further history is obtained from the daughter reporting some drug use at home. Patient did not initially appear to be intoxicated but that may be the source of her symptoms. CT did not reveal any acute findings. Labs were all evaluated. Please see above. Patient will require further evaluation in the hospital. TIA remains a possibility. I discussed care with the patient and with the hospitalist. Medication Reconcilliation Current Medication List: was personally reviewed by me Blood Pressure Screening Patient's blood pressure: Normal blood pressure Blood pressure disposition: Did not require urgent referral Consults Time Called: 2330 Consulting Physician: Dr. Pope - [facility] [place] Returned Call: [phone] Discussed the patient's case with him. The patient will be evaluated for further management. Impression Primary Impression: TIA (transient ischemic attack) Additional Impression: Hypokalemia Scribe Attestation The scribe's documentation has been prepared under my direction and personally reviewed by me in its entirety. I confirm that the note above accurately reflects all work, treatment, procedures, and medical decision making performed by me. Departure Information Dispostion Being Evaluated By Hospitalist Referrals Norberto Anderson MD (PCP) Stroke History Time Last Known Well Unknown Stroke t-PA Criteria Reviewed Does NOT meet criteria for t-PA Reason t-PA Not Given Treatment not indicated Problem Qualifiers
[2017-02-18] MEDS ORDERED: CARI350T28 PO (22:05)
[2017-02-18 22:30] LABS: BASO % 1.1 %; BASO ABS # 0.13 K/uL (0-0.2); COMPLETE YES; EOS % 8.4 %; HEMATOCRIT 36.8 % (37-47); IG% 0.3 %; LYMPH % 26.1 %; LYMPH ABS # 3.06 K/uL (1.2-3.4); MEAN CELL VOLUME 86.6 fL (80-100); MEAN CORPUSCULAR HEMOGLOBIN 28.5 pg (25-34); MEAN CORPUSCULAR HGB CONC 32.9 g/dl (32-36); MEAN PLATELET VOLUME 9.9 fL (7.4-10.4); MONO % 8.3 %; NEUT % 55.8 %; PLATELET COUNT 397 K/uL (130-400); RED BLOOD COUNT 4.25 M/uL (4.2-5.4); WHITE BLOOD COUNT 11.73 K/uL (4.8-10.8)
[2017-02-18 22:38] LABS: INR 0.9 (0.9-1.1); PARTIAL THROMBOPLASTIN RATIO 0.9
--- NOTE | 2017-02-18 22:48 | DIAGNOSTIC IMAGING REPORT ---
HEAD CT NONCONTRAST CT DOSE: 537.48 mGy.cm HISTORY: Confusion. Stroke TECHNIQUE: Multiaxial CT images of the head were performed without the use of intravenous contrast. Automated exposure control was utilized for this study. A dose lowering technique was utilized adhering to the principles of ALARA. Comparison: Head CT 05/10/2014. Findings: Moderate mucosal thickening within the right sphenoid sinus and left maxillary sinus. The mastoid air cells are clear. The calvarium and skull base are intact. The ventricles and sulci are within normal limits. There is no mass, hematoma, midline shift, or acute infarct. Impression: No acute intracranial abnormality. Electronically signed by: Matteo Rojas M.D. 02/18/2017 10:47 PM Dictated Date/Time: 02/18/2017 10:42 PM
[2017-02-18 22:53] LABS: BLOOD UREA NITROGEN 10 mg/dl (7-18); CALCIUM 8.2 mg/dl (8.5-10.1); CARBON DIOXIDE 27 mmol/L (21-32); CHLORIDE 107 mmol/L (98-107); CREATININE 0.82 mg/dl (0.60-1.20); GLUCOSE 148 mg/dl (70-99); SODIUM 140 mmol/L (136-145)
[2017-02-18 23:41] LABS: BENZODIAZEPINE, URINE NEG (NEG); COCAINE,URINE NEG (NEG); PHENCYCLIDINE, URINE NEG (NEG)
[2017-02-19] VITALS (8 sets, daily range): BP systolic 114–145; BP diastolic 70–95; PULSE 78–106; TEMP 36.9–37.4; O2SAT 92–96; Ht 157.5 cm; Wt 108.3 kg
[2017-02-19] MEDS ORDERED: ALBUTEROL HFA 8 GM INHALER INH PRN (00:30)
[2017-02-19] MEDS ORDERED: PHARMACIST DISCHARGE MED REC CONSULT PRN (00:30)
[2017-02-19] MEDS ORDERED: ALBUTEROL 0.5% NEB SOLN 2.5 MG/0.5 ML VIAL INH PRN (00:30)
[2017-02-19] MEDS ORDERED: NITROGLYCERIN 0.4 MG SL PER TAB CHARGE UT PRN (00:30)
[2017-02-19] MEDS ORDERED: PATIENT'S HEIGHT AND/OR WEIGHT NEEDED SCH (02:45)
[2017-02-19] MEDS ORDERED: IV FLUIDS COMPLETED PRN (02:45)
[2017-02-19] MEDS ORDERED: POTASSIUM CHLORIDE 20 MEQ TABCR PO STA (02:57)
--- NOTE | 2017-02-19 03:04 | History and Physical ---
History & Physical Date & Time of Service: Feb 19, 2017 at 02:39 Chief Complaint: TIA Primary Care Physician: Norberto Anderson MD History of Present Illness This is a 56 yr old F who presents with 2 hours of dysarthria that has since resolved. She did have some accompanying shaking, but otherwise denies weakness / numbness/tingling. She reports having a similar event a few years ago but says this episode was worse. She does have a history of an MN earlier this year. The patients daughter supposedly reported that the patient has been mixing different drugs, lately. Past Medical/Surgical History Medical Problems: (1) Abdominal pain Status: Resolved (2) ELIO (acute kidney injury) Status: Resolved (3) Anxiety State Nos Status: Chronic (4) Asthma Status: Chronic (5) Back pain Status: Resolved (6) Back pain Status: Resolved (7) CHI (closed head injury) Status: Resolved (8) Contusion of multiple sites Status: Resolved (9) Contusion of multiple sites Status: Resolved (10) Contusion of third finger, right Status: Resolved (11) Degenerative arthritis of knee Status: Chronic (12) Dehydration Status: Resolved (13) Depressive Disorder Nec Status: Chronic (14) Diab Niyah Wo Compl, Type Ii Or Unspec Type, Not Uncntrld Status: Chronic (15) Esophageal Reflux Status: Chronic (16) Fall Status: Resolved (17) Fall due to slipping on ice or snow Status: Resolved (18) Foot pain Status: Resolved (19) Hx-Venous Thrombosis&Embolism Status: Chronic (20) Hyperlipidemia Nec/Nos Status: Chronic (21) Hypertension Status: Chronic (22) Hypotension Status: Resolved (23) Hypotension Status: Resolved (24) Hypothyroidism Nos Status: Chronic (25) Knee contusion Status: Resolved (26) Left wrist pain Status: Resolved (27) Leukocytosis Status: Resolved (28) Lumbar Disc Displacement Status: Chronic (29) Lumbar strain Status: Resolved (30) Lumbosacral Neuritis Nos Status: Chronic (31) Morbid Obesity Status: Chronic (32) Nausea, vomiting, and diarrhea Status: Resolved (33) Osteoporosis Nos Status: Chronic (34) Post concussion syndrome Status: Resolved (35) Right flank pain Status: Resolved (36) Splenosis Status: Chronic Surgical Problems: (1) Hx of appendectomy Status: Resolved (2) Hx of hernia repair Status: Resolved Family History Asthma Diabetes mellitus FHx: cancer (skin) FHx: heart failure Gallbladder disease Heart disease Hypertension Kidney stones Social History Smoking Status: Former Smoker Drug Use: none Marital Status: single Housing status: lives with family Occupational Status: unemployed Immunizations History of Influenza Vaccine: No Influenza Vaccine Date: Jan 07, 2013 History of Tetanus Vaccine?: Unknown History of Pneumococcal: Unknown Pneumococcal Date: Jan 08, 2012 History of Hepatitis B Vaccine: Unknown Multi-Drug Resistant Organisms History of MDRO: Yes Type of MDRO: MRSA Allergies Coded Allergies: Aspirin (Verified Allergy, Severe, SHORT OF BREATH, 02/18/17) Cephalexin (Verified Allergy, Severe, EDEMA OF FACE,LIPS,TONGUE, 02/18/17) Ketorolac Tromethamine (Verified Allergy, Severe, SHORTNESS OF BREATH, ) Latex2 -Systemic Allergic Response (Verified Allergy, Severe, DIFFICULTY BREATHING, 02/18/17) NSAIDs (Verified Allergy, Severe, SHORT OF BREATH, 02/18/17) Sulfa Antibiotics (Verified Allergy, Unknown, UNKNOWN- HAD RXN WHEN LITTLE , 02/18/17) Simvastatin (Verified Adverse Reaction, Intermediate, myalgias, 02/18/17) Metformin (Verified Adverse Reaction, Mild, GI SYMPTOMS, 02/18/17) Uncoded Allergies: adhesive (Allergy, Mild, rash,blister, 01/11/17) SORBAVIEW adhesive dressing Home Medications Scheduled Amitriptyline Hcl (Amitriptyline Hcl), 50 MG PO HS Carisoprodol (Soma), 1 TAB PO UD Clopidogrel (Plavix), 75 MG PO DAILY Fluoxetine (Prozac), 40 MG PO HS Fluticasone Prop/Salmeterol (Advair Diskus 500/50 60 Dose), 1 PUFF INH BID Gabapentin (Neurontin), 800 MG PO TID Levothyroxine Sodium (Synthroid), 150 MCG PO QAM Metoprolol Succinate (Metoprolol Succinate ER), 100 MG PO DAILY Montelukast Sodium (Singulair), 10 MG PO QAM Omeprazole (Prilosec), 40 MG PO QAM Rosuvastatin Calcium (Crestor), 20 MG PO DAILY Scheduled PRN Albuterol Hfa (Ventolin Hfa), 2 PUFFS INH QID PRN for Wheezing Albuterol Sulf (Albuterol Sulfate), 1 DOSE NEB Q4 PRN for Wheezing Nitroglycerin (Nitrostat), 0.4 MG UT PRN PRN for chest pain Review of Systems Constitutional: + weakness, + fatigue, No fever, No chills, No sweats Respiratory: No cough, No sputum, No wheezing, No shortness of breath, No dyspnea on exertion, No dyspnea at rest Cardiovascular: No chest pain, No orthopnea Abdomen: No pain, No nausea, No vomiting Genitourinary - Female: No dysuria, No urinary frequency, No urinary urgency Neurologic: No paralysis, No weakness, No numbness/tingling, No balance problems Physical Exam Vital Signs Date Time Temp Pulse Resp B/P (MAP) Pulse Ox O2 Delivery O2 Flow Rate FiO2 02/19/17 01:53 82 18 127/84 98 Room Air 02/19/17 01:05 82 02/18/17 23:34 98 Room Air 02/18/17 23:32 83 18 114/62 98 Room Air 02/18/17 22:00 36.9 96 18 126/88 96 Room Air 02/18/17 21:50 94 General Appearance: no apparent distress, + obese Eyes: normal inspection, PERRL ENT: hearing grossly normal Neck: supple, thyroid normal Respiratory/Chest: no respiratory distress, no accessory muscle use, + decreased breath sounds Cardiovascular: regular rate, rhythm, no edema Abdomen/GI: normal bowel sounds, non tender, soft Back: no CVA tenderness Extremities/Musculoskelatal: no calf tenderness Neurologic/Psych: alert, normal mood/affect, oriented x 3 Diagnostics Laboratory Results Results Past 24 Hours Test 02/18/17 21:55 02/18/17 22:12 02/18/17 23:17 02/19/17 00:29 Range/Units Urine Opiates Screen POS NEG Urine Methadone, Qualitative NEG NEG Urine Barbiturates NEG NEG Urine Phencyclidine (PCP) Level NEG NEG Ur Amphetamine/Methamphetamine NEG NEG MDMA (Ecstasy) Screen NEG NEG Urine Benzodiazepines Screen NEG NEG Urine Cocaine Metabolite NEG NEG Urine Marijuana (THC) NEG NEG White Blood Count 11.73 4.8-10.8 K/uL Red Blood Count 4.25 4.2-5.4 M/uL Hemoglobin 12.1 12.0-16.0 g/dL Hematocrit 36.8 37-47 % Mean Corpuscular Volume 86.6 80-100 fL Mean Corpuscular Hemoglobin 28.5 25-34 pg Mean Corpuscular Hemoglobin Concent 32.9 32-36 g/dl Platelet Count 397 130-400 K/uL Mean Platelet Volume 9.9 7.4-10.4 fL Neutrophils (%) (Auto) 55.8 % Lymphocytes (%) (Auto) 26.1 % Monocytes (%) (Auto) 8.3 % Eosinophils (%) (Auto) 8.4 % Basophils (%) (Auto) 1.1 % Neutrophils # (Auto) 6.54 1.4-6.5 K/uL Lymphocytes # (Auto) 3.06 1.2-3.4 K/uL Monocytes # (Auto) 0.97 0.11-0.59 K/uL Eosinophils # (Auto) 0.99 0-0.5 K/uL Basophils # (Auto) 0.13 0-0.2 K/uL RDW Standard Deviation 45.7 36.4-46.3 fL RDW Coefficient of Variation 14.6 11.5-14.5 % Immature Granulocyte % (Auto) 0.3 % Immature Granulocyte # (Auto) 0.04 0.00-0.02 K/uL Prothrombin Time 10.0 9.0-12.0 SECONDS Prothromb Time International Ratio 0.9 0.9-1.1 Activated Partial Thromboplast Time 22.6 21.0-31.0 SECONDS Partial Thromboplastin Ratio 0.9 Sodium Level 140 136-145 mmol/L Potassium Level 3.2 3.5-5.1 mmol/L Chloride Level 107 98-107 mmol/L Carbon Dioxide Level 27 21-32 mmol/L Anion Gap 6.0 3-11 mmol/L Blood Urea Nitrogen 10 7-18 mg/dl Creatinine 0.82 0.60-1.20 mg/dl Estimated GFR () 91.4 Estimated GFR (Non- 78.9 BUN/Creatinine Ratio 12.0 10-20 Random Glucose 148 70-99 mg/dl Calcium Level 8.2 8.5-10.1 mg/dl Troponin I < 0.015 0-0.045 ng/ml Impression Assessment and Plan This is a 56 y/o F who presents with Dysphasia that has resolved concerning for TIA vs CVA TIA/CVA Head CT negative Brain MRI- Patient refusing MRI for claustrophobia. Reports that she will only undergo MRI if "knocked out". With history of drug use per daughter, would be cautious carotid u/s Echo consider neuro eval pending results on plavix and rosuvastatin a1c lipid profile Asthma Albuterol CAD, h/o MN Plavix, Rosuvastatin Pain/neuropathy Soma oxycodone 30 q8- On d/c during last hospitalization DM ISS DVT: Lovenox Code: Full Resident Physician Supervision Note: I was present with Dr. Garcia during the history and exam. I discussed the case with the resident and agree with the findings and plan as documented in the note. Any exceptions or clarifications are listed here: 56 y/o F Hx HTN, HPL, DM, obese - presenting after 2-3 hour aphasia episode. Pt 's symptoms have resolved at time of admission - no other deficits noted - initial CT is neg AAO x 3 S1,2 R CTAB NT, ND, BS + No CCE P: Admitted with CVA protocol - MRI/MRA refused due to claustrophobia ASA, Statin provided - will provide sedative prior to MRI - or can proceed with CTA Neuro eval pending SS for DM Documented By: Cr Pope VTE Prophylaxis VTE Risk Assessment Done? Y/N: Yes Risk Level: Moderate
[2017-02-19 03:49] LABS: BLOOD UREA NITROGEN 9 mg/dl (7-18); BUN/CREATININE RATIO 12.4 (10-20); CALCIUM 8.2 mg/dl (8.5-10.1); CARBON DIOXIDE 25 mmol/L (21-32); CHLORIDE 107 mmol/L (98-107); CREATININE 0.71 mg/dl (0.60-1.20); GLUCOSE 119 mg/dl (70-99); POTASSIUM 3.1 mmol/L (3.5-5.1); SODIUM 141 mmol/L (136-145)
[2017-02-19] MEDS ORDERED: OPTIRAY 320 IV PRN (04:45)
[2017-02-19] MEDS: LEVOTHYROXINE 150 MCG TAB PO SCH (04:53)
[2017-02-19 06:53] LABS: ESTIMATED AVERAGE GLUCOSE 166 mg/dl; HA1C FLAG Normal (Normal)
[2017-02-19] MEDS: INSULIN ASPART 100 UNITS/ML 3 ML PEN SC SCH ×4 (07:00→21:00)
[2017-02-19] MEDS ORDERED: GABAPENTIN 800 MG TAB PO SCH (09:00)
--- NOTE | 2017-02-19 09:31 | Neurology Consultation ---
Neurology Consultation Date of Consultation: Feb 19, 2017. Attending Physician: Cr Pope M.D. Primary Care Physician: Norberto Anderson MD Reason for Consultation: Patient is a 56-year-old, who was asked to see at the request of Dr. Pope, for neurologic consultation regarding possible stroke/TIA History of Present Illness Source: patient, caregiver, clinic records, hospital records Patient has a longstanding history of diabetes, hypertension, dyslipidemia, and has chronic spine pain particularly in the lumbar area. She the had a MRI of the cervical spine in September of 2013 which showed multilevel spondylosis and spinal stenosis. CT scan of the lumbar spine in April 2015 showed L3 compression fracture of an old nature with stenosis at L2 through L4. She is post kyphoplasty in 2003. She has chronic low back pain and is followed by Dr. Beck in Pain Management locally as well as a painter barrel in [place] gives her oxycodone. She recently has lowered her oxycodone to 50 mg 4 times a day and is adamant that she is not taking more than this or combining it with other medications. However, the patient's daughter has contacted the emergency room physicians yesterday and stated that she is wondering if the patient has been taking more than prescribed. In addition, EMS personnel Reba multiple pill bottles with varying amounts of medication that were not 1 her official prescription list. The patient has a history of significant anxiety and depression disorder. She is on Prozac 40 which has not been helping her anxiety. This has been worse over the summer. She takes amitriptyline and gabapentin for chronic pain and believes that these medications do help. Patient had a NSTEMI event in August of 2016 and has been on Plavix ever since. She was doing fairly well recently including yesterday. She arose on February 18 around 9 or 10 in the morning was feeling well. She did well throughout the morning and afternoon with no symptoms. She remember speaking to her son around 1900 hours and will apparently was fine then. Sometime after that she noted the sudden onset of bilateral shaking/tremor of her upper extremities with action. This did not occur if she was resting or arms but only if she was using them to hold an object or do something. Shortly thereafter she noted that her coordination bilaterally was off and she ended up on the ground. She did not have syncope and states that she did not lose or alter her consciousness. She did not feel that her limbs were weak either which is more of a control problem. This only happened 1 time. When her son came to talk to her , she noted difficulty getting words out. She knew which she wanted to say but it was hard to produce the words. The words were not slurred. Patient had no incontinence of urine or tongue biting. She arrived at the emergency room on February 18 at 2150 hours, and temperature was 36.9, pulse 96, respiratory rate 18, blood pressure 126/88, and O2 saturation 96%. In the emergency room, he was noted that her speech was a little slow in answering and possibly slightly dysarthric but she had no shaking, weakness, or other issues. Her NIH stroke scale reportedly went from 05/20 in the ER. I am not sure what created the "5". By the time the patient was seen by the admitting clinician, everything was back to baseline. She had no deficits of speech I had no focal neurologic signs , meningeal signs, or encephalopathy. CT scan of the head was unremarkable. CBC showed a slightly elevated white count, and Chem profile showed a low potassium low calcium, and mildly elevated glucose of 110. Hemoglobin A1c was 7.4. The the patient refused an MRI Overnight she had no issues according to the nursing staff. Patient denies any symptoms of a new nature currently. She feels well with no vision issues, speech or mentation problems, headaches, new pain, weakness, numbness, balance issues, incontinence, or other issues currently or since admission Past Medical/Surgical History Medical Problems: (1) Abdominal wall abscess Status: Acute (2) Acute exacerbation of chronic low back pain Status: Acute (3) Allergic reaction Status: Acute (4) Anxiety State Nos Status: Chronic (5) Asthma Status: Chronic (6) Cellulitis Status: Acute (7) Cellulitis of toe of left foot Status: Acute (8) Chalazion left upper eyelid Status: Acute (9) Contusion of left knee Status: Acute (10) Contusion of right foot Status: Acute (11) Degenerative arthritis of knee Status: Chronic (12) Depressive Disorder Nec Status: Chronic (13) Diab Niyah Wo Compl, Type Ii Or Unspec Type, Not Uncntrld Status: Chronic (14) Epigastric abdominal pain Status: Acute (15) Esophageal Reflux Status: Chronic (16) Headache Status: Acute (17) Hx-Venous Thrombosis&Embolism Status: Chronic (18) Hyperlipidemia Nec/Nos Status: Chronic (19) Hypertension Status: Chronic (20) Hypertension Status: Acute (21) Hypokalemia Status: Acute (22) Hypothyroidism Nos Status: Chronic (23) Leg pain, right Status: Acute (24) Lumbar Disc Displacement Status: Chronic (25) Lumbar radiculopathy Status: Acute (26) Lumbosacral Neuritis Nos Status: Chronic (27) Morbid Obesity Status: Chronic (28) Osteoporosis Nos Status: Chronic (29) Pneumonia Status: Acute (30) Splenosis Status: Chronic (31) Substernal chest pain Status: Acute (32) TIA (transient ischemic attack) Status: Acute (33) Urinary tract infection Status: Acute (34) UTI (urinary tract infection) Status: Acute (35) Wide-complex tachycardia Status: Acute Asthma Hypertension Diabetes, type 2 Dyslipidemia History of stress incontinence Biliary issues Hypothyroidism History of headaches History of significant anxiety depressive disorder History of nephrolithiasis and gastroesophageal reflux disease Chronic spine pain particularly lumbar seeing pain management. History of polyneuropathy secondary to diabetes Post appendectomy, hernia repair, hysterectomy, splenectomy, carpal tunnel syndrome repair, shoulder surgery, sinus surgery, and lumbar kyphoplasty Family History Mother is alive at 86 and has a history of hypertension and an MRI Father around age 86 and had dementia. He had a history of diabetes, hypertension, and MT. Social History Patient smoked up to 3 packs of cigarettes a day from age 9 until 1991 when she quit cigarette smoking She does not use alcohol. 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 She has been unemployed because of current health issues but tells me she is scheduled to start at [employer] tomorrow. Smoking Status: Former smoker Smokeless Tobacco Use: No Alcohol Use: none Drug Use: none Marital Status: single Housing Status: lives with family Occupation Status: unemployed Allergies Coded Allergies: Aspirin (Verified Allergy, Severe, SHORT OF BREATH, 02/18/17) Cephalexin (Verified Allergy, Severe, EDEMA OF FACE,LIPS,TONGUE, 02/18/17) Ketorolac Tromethamine (Verified Allergy, Severe, SHORTNESS OF BREATH, ) Latex2 -Systemic Allergic Response (Verified Allergy, Severe, DIFFICULTY BREATHING, 02/18/17) NSAIDs (Verified Allergy, Severe, SHORT OF BREATH, 02/18/17) Sulfa Antibiotics (Verified Allergy, Unknown, UNKNOWN- HAD RXN WHEN LITTLE , 02/18/17) Simvastatin (Verified Adverse Reaction, Intermediate, myalgias, 02/18/17) Metformin (Verified Adverse Reaction, Mild, GI SYMPTOMS, 02/18/17) Uncoded Allergies: adhesive (Allergy, Mild, rash,blister, 01/11/17) SORBAVIEW adhesive dressing Current Inpatient Medications Current Inpatient Medications Medications (Trade) Dose Ordered Sig/Sid Route Start Time Stop Time Status Last Admin Dose Admin Miscellaneous Information (Pharmacist Discharge Med Rec Consult) 1 ea UD PRN N/A 02/19/17 00:30 03/21/17 00:29 Enoxaparin Sodium (Lovenox Inj) 40 mg Q24H SC 02/19/17 09:00 03/21/17 08:59 Albuterol (Ventolin Hfa Inhaler) 2 puffs QID PRN INH 02/19/17 00:30 03/21/17 00:29 Albuterol Sulfate (Ventolin 0.5% 2.5MG/0.5ML Neb) 2.5 mg Q4 PRN INH 02/19/17 00:30 03/21/17 00:29 Amitriptyline HCl (Elavil Tab) 50 mg HS PO 02/19/17 21:00 03/21/17 20:59 Clopidogrel Bisulfate (plAVix TAB) 75 mg DAILY PO 02/19/17 09:00 03/21/17 08:59 Fluoxetine HCl (Prozac Cap) 40 mg HS PO 02/19/17 21:00 03/21/17 20:59 Salmeterol Xinafoate/ Fluticasone (Advair Diskus 500/50 Inh) 1 puff BID INH 02/19/17 09:00 03/21/17 08:59 Levothyroxine Sodium (Synthroid Tab) 150 mcg DAILYBB PO 02/19/17 06:00 03/21/17 06:59 02/19/17 04:53 150 MCG Montelukast Sodium (Singulair Tab) 10 mg QAM PO 02/19/17 09:00 03/21/17 08:59 Nitroglycerin (Nitrostat Tab) 0.4 mg PRN PRN UT 02/19/17 00:30 03/21/17 00:29 Rosuvastatin Calcium (Crestor Tab) 20 mg DAILY PO 02/19/17 09:00 03/21/17 08:59 Miscellaneous Information (Order Awaiting Action) 1 ea QS N/A 02/19/17 01:30 03/21/17 01:29 Metoprolol Succinate (Toprol Xl Tab) 100 mg DAILY PO 02/19/17 09:00 03/21/17 08:59 Pantoprazole Sodium (Protonix Tab) 40 mg QAM PO 02/19/17 09:00 03/21/17 08:59 Miscellaneous (Iv Fluids Completed) 1 ea PRN PRN N/A 02/19/17 02:45 02/19/18 02:44 Gabapentin (Neurontin Tab) 800 mg TID PO 02/19/17 09:00 03/21/17 08:59 Ioversol (Optiray 320) 100 ml UD PRN IV 02/19/17 04:45 02/23/17 04:44 Oxycodone HCl (Roxicodone Immediate Rel Tab) 30 mg Q8 PRN PO 02/19/17 06:00 03/05/17 05:59 Insulin Aspart (novoLOG ASPART) SLIDING SCALE G... ACHS SC 02/19/17 07:00 03/21/17 06:59 Potassium Chloride (Klor-Con Tab) 20 meq BID PO 02/19/17 09:00 02/20/17 09:01 Magnesium Oxide (Mag-Ox Tab) 400 mg BID PO 02/19/17 09:00 03/21/17 08:59 Review of Systems Constitutional: No weakness, No fatigue Eyes: No worsening of vision, No diplopia ENT: No tinnitus, No trouble swallowing Respiratory: No cough, No shortness of breath Cardiovascular: No chest pain, No palpitations Abdomen: No pain, No nausea Musculoskeletal: + joint pain, No muscle pain Genitourinary - Female: No dysuria, No urinary incontinence Neurologic: No memory loss, No weakness, No numbness/tingling, No vertigo, No balance problems Psychiatric: + anxiety, No depression symptoms Endocrine: No fatigue Hematologic / Lymphatic: No abnormal bleeding/bruising Integumentary: No rash Allergic / Immunologic: No hives Physical Exam Vital Signs (Past 24 Hrs): Date Time Temp Pulse Resp B/P (MAP) Pulse Ox O2 Delivery O2 Flow Rate FiO2 02/19/17 07:44 36.9 106 18 141/95 (110) 95 Room Air 02/19/17 04:00 Room Air 02/19/17 03:40 37.0 92 18 114/70 (85) 94 Room Air 02/19/17 02:00 36.9 84 18 132/76 96 Room Air 02/19/17 01:53 82 18 127/84 98 Room Air 02/19/17 01:05 82 02/18/17 23:34 98 Room Air 02/18/17 23:32 83 18 114/62 98 Room Air 02/18/17 22:00 36.9 96 18 126/88 96 Room Air 02/18/17 21:50 94 Patient is right-handed. The patient is awake and alert. Speech is normal without aphasia or dysarthria. She can repeat test phrases well and name objects and colors without any difficulty. Her speech or thought processes are not slow mentation is normal with conversation including orientation and normal fund of knowledge. Mood and affect are normal and appropriate. Appearance and grooming are normal. Long and short-term memory are intact. The discs are sharp with positive venous pulsations, noted more right than left. There are no exudates, hemorrhages, or blood vessel changes seen. Pupils are 4mm bilaterally and reactive to light. Extraocular eye muscles are intact without nystagmus. Visual acuity and visual bowser seem normal grossly to confrontation. There are no deficits to sensation of the face bilaterally. Corneal reflexes are positive bilaterally. Facial strength and symmetry is normal bilaterally. Hearing seems intact grossly to voice and finger rub. Palate moves well without asymmetry. There is normal sternocleidomastoid and trapezius strength bilaterally. Tongue is midline with good strength bilaterally. Neck is with full range of motion without discomfort. There are no cervical bruits. There are no cranial or ocular bruits. Heart is without murmur. Cervical, thoracic, and lumbar spine are nontender to palpation. Gait is narrow based with good arm swing. Stance is normal eyes open. She is stable with turns. With outstretched arms there is no drift. There are no resting, postural, or action tremors. There is no ataxia with [id number] testing. There is good facility in the hands. There are no abnormal involuntary movements noted. Motor strength is 5/5 diffusely in the arms bilaterally including deltoids, biceps, brachioradialis, wrist flexors and extensors, associate professor of pathology, and intrinsic hand muscles. Motor strength is 5/5 diffusely in the legs bilaterally including hip flexors, quadriceps, hamstring, gastrocnemius, tibialis anterior, tibialis posterior, and peroneii muscles bilaterally. Toe extensors are normal and there is good bulk in the extensor digitorum brevis muscle bilaterally. The limbs have good tone without rigidity or spasticity, and there is no atrophy noted. Muscle bulk is normal, there is no tenderness, no myotonia noted to percussion, and no fasciculations seen. Sensory examination is intact to pin and touch throughout all four limbs. Reflexes are 2/4 in the biceps, triceps, and brachioradialis tendons bilaterally. Quadriceps tendon reflexes are 0/4 and Achilles tendon reflexes are 1/4 bilaterally. Toes are downgoing with plantar stimulation bilaterally. Peripheral pulses are present and of normal quality distally in all four limbs. There is no peripheral edema noted. Laboratory Results Past 24 Hours: 02/18/17 22:12 Red Blood Count 4.25, Mean Corpuscular Volume 86.6, Mean Corpuscular Hemoglobin 28.5, Mean Corpuscular Hemoglobin Concent 32.9, Mean Platelet Volume 9.9, Neutrophils (%) (Auto) 55.8, Lymphocytes (%) (Auto) 26.1, Monocytes (%) (Auto) 8.3, Eosinophils (%) (Auto) 8.4, Basophils (%) (Auto) 1.1, Neutrophils # (Auto) 6.54, Lymphocytes # (Auto) 3.06, Monocytes # (Auto) 0.97, Eosinophils # (Auto) 0.99, Basophils # (Auto) 0.13 02/19/17 03:07 Test 02/18/17 21:55 02/18/17 22:12 02/19/17 03:07 02/19/17 06:26 Urine Opiates Screen POS (NEG) Urine Methadone, Qualitative NEG (NEG) Urine Barbiturates NEG (NEG) Urine Phencyclidine (PCP) Level NEG (NEG) Ur Amphetamine/Methamphetamine NEG (NEG) MDMA (Ecstasy) Screen NEG (NEG) Urine Benzodiazepines Screen NEG (NEG) Urine Cocaine Metabolite NEG (NEG) Urine Marijuana (THC) NEG (NEG) White Blood Count 11.73 K/uL (4.8-10.8) Red Blood Count 4.25 M/uL (4.2-5.4) Hemoglobin 12.1 g/dL (12.0-16.0) Hematocrit 36.8 % (37-47) Mean Corpuscular Volume 86.6 fL (80-100) Mean Corpuscular Hemoglobin 28.5 pg (25-34) Mean Corpuscular Hemoglobin Concent 32.9 g/dl (32-36) Platelet Count 397 K/uL (130-400) Mean Platelet Volume 9.9 fL (7.4-10.4) Neutrophils (%) (Auto) 55.8 % Lymphocytes (%) (Auto) 26.1 % Monocytes (%) (Auto) 8.3 % Eosinophils (%) (Auto) 8.4 % Basophils (%) (Auto) 1.1 % Neutrophils # (Auto) 6.54 K/uL (1.4-6.5) Lymphocytes # (Auto) 3.06 K/uL (1.2-3.4) Monocytes # (Auto) 0.97 K/uL (0.11-0.59) Eosinophils # (Auto) 0.99 K/uL (0-0.5) Basophils # (Auto) 0.13 K/uL (0-0.2) RDW Standard Deviation 45.7 fL (36.4-46.3) RDW Coefficient of Variation 14.6 % (11.5-14.5) Immature Granulocyte % (Auto) 0.3 % Immature Granulocyte # (Auto) 0.04 K/uL (0.00-0.02) Prothrombin Time 10.0 SECONDS (9.0-12.0) Prothromb Time International Ratio 0.9 (0.9-1.1) Activated Partial Thromboplast Time 22.6 SECONDS (21.0-31.0) Partial Thromboplastin Ratio 0.9 Estimated Average Glucose 166 mg/dl Hemoglobin A1c 7.4 % (4.5-5.6) Anion Gap 9.0 mmol/L (3-11) Est Creatinine Clear Calc Drug Dose 99.9 ml/min Estimated GFR () 108.8 Estimated GFR (Non- 93.9 BUN/Creatinine Ratio 12.4 (10-20) Calcium Level 8.2 mg/dl (8.5-10.1) Troponin I < 0.015 ng/ml (0-0.045) Bedside Glucose 110 mg/dl (70-90) Imaging HEAD CT NONCONTRAST CT DOSE: 537.48 mGy.cm HISTORY: Confusion. Stroke TECHNIQUE: Multiaxial CT images of the head were performed without the use of intravenous contrast. Automated exposure control was utilized for this study. A dose lowering technique was utilized adhering to the principles of ALARA. Comparison: Head CT 05/10/2014. Findings: Moderate mucosal thickening within the right sphenoid sinus and left maxillary sinus. The mastoid air cells are clear. The calvarium and skull base are intact. The ventricles and sulci are within normal limits. There is no mass, hematoma, midline shift, or acute infarct. Impression: No acute intracranial abnormality. Electronically signed by: Matteo Rojas M.D. 02/18/2017 10:47 PM Impression 1. Episode evening of February 18 of uncertain etiology. She had bilateral action tremor of the upper extremities (by history), nonspecific balance/coordination problems briefly, and some word-finding difficulties without actual dysarthria or aphasia otherwise. There was no evidence for focal neurologic findings such as weakness or numbness and she cleared after 2-3 hours. There is a concern that the patient had been taking extra medication or different medication because of her pain and other symptoms including significant anxiety. The patient denies this. Certainly, the this episode could be consistent with a TIA. Although her neurologic examination is unremarkable now a very tiny stroke cannot be excluded. Unfortunately, the patient is very adamant about not getting an MRI of the brain Alternatively, this episode last night may have had nothing to do with cerebral vascular disease. Some other type of medication effect/encephalopathy is possible also. I do note that she is on amitriptyline and fluoxetine together. This would put her at risk for serotonin syndrome. 2. Chronic pain, particularly lumbar spine. This is stable. 3. Significant depression and anxiety by history. She continues to have increased anxiety. Prozac is not helping this. 4. Multiple risk factors for stroke including hypertension, diabetes, dyslipidemia. She is a former smoker. Hemoglobin A1c was elevated at 7.4. 5. The patient has absent quadriceps reflexes but preserved Achilles reflexes. This is likely because she does not have any significant polyneuropathy and the absent quadriceps reflexes are likely due to mid lumbar spine disease Plan 1. The awaiting carotid ultrasound and echocardiogram cells. 2. Since we cannot get an MRI (the patient refuses) we could repeat a CT scan of the head without contrast. This will not show anything too small, but might show something that was not present on admission because of the early time frame. 3. I do not like the combination of fluoxetine and amitriptyline because of the possibility of serotonin syndrome. I would suggest 1 of the other be tapered off. She may need to see Psychiatry (as an outpatient) to come up with something different for anxiety. In the past, escitalopram is help. If she has tapered off amitriptyline, escitalopram could be used instead of fluoxetine. If the amitriptyline is capped, then I would go with bupropion for anxiety. All of this should be done as an outpatient. 4. Patient is interested in tapering off oxycodone. I agree with this. This should be done as an outpatient. 5. Control glucose I spent a total of 75 minutes with this case including her evaluation of old records, discussion of the case with the patient including differential diagnosis and treatment options as well as withDr. Farfan.
--- NOTE | 2017-02-19 10:01 | DIAGNOSTIC IMAGING REPORT ---
CAROTID DOPPLER NECK ART HISTORY: Mental status change TIA COMPARISON: None. TECHNIQUE: Real-time, grayscale, and color Doppler sonography of the carotid arteries was performed. Imaging reviewed in the transverse and longitudinal planes. All measurements were calculated based on NASCET criteria. FINDINGS: Antegrade flow is seen in the bilateral vertebral arteries. The brachial pressures are hemodynamically similar. Mild plaque formation bilaterally The peak systolic velocity within the right ICA is 67. The right systolic ratio is 1.2. The peak systolic velocity within the left ICA is 76. The left systolic ratio is 1.1. IMPRESSION: No hemodynamically significant stenosis seen within the carotid arteries. Mild plaque formation bilaterally The above report was generated using voice recognition software. It may contain grammatical, syntax or spelling errors. Electronically signed by: Lionel Alexander M.D. 02/19/2017 9:59 AM Dictated Date/Time: 02/19/2017 9:59 AM
[2017-02-19] MEDS: FLUTICASONE/SALMETEROL (ADVAIR) 500/50 INH 14 PUFF INH SCH ×2 (10:10→21:02)
[2017-02-19] MEDS: OXYCODONE HCL IR 30 MG TAB (IMMEDIATE RELEASE) PO PRN ×2 (10:10→17:37)
[2017-02-19] MEDS: GABAPENTIN 800 MG TAB PO SCH ×3 (10:10→21:04)
[2017-02-19] MEDS: METOPROLOL SUCC 50MG EXT REL TAB PO SCH (10:11)
[2017-02-19] MEDS: MONTELUKAST SOD 10 MG TAB PO SCH (10:11)
[2017-02-19] MEDS: PANTOprazole SOD 40 MG TAB PO SCH (10:11)
[2017-02-19] MEDS: ROSUVASTATIN CALCIUM 20 MG TAB PO SCH (10:11)
[2017-02-19] MEDS: CLOPIDOGREL BISULFATE 75 MG TAB PO SCH (10:11)
[2017-02-19] MEDS: POTASSIUM CHLORIDE 20 MEQ TABCR PO SCH ×2 (10:12→21:03)
[2017-02-19] MEDS: MAGNESIUM OXIDE 400 MG TAB PO SCH ×2 (10:12→21:03)
[2017-02-19] MEDS: ENOXAPARIN 40 MG/0.4 ML SYR SC SCH (10:16)
--- NOTE | 2017-02-19 10:34 | Medical Student: [facility] ---
Consultation Date of Consultation: Feb 19, 2017. Requesting Physician: Dr. Pope Attending Physician: Dr. Hankins Reason for Consultation: Focal neurologic change, now resolved History of Present Illness Patient is a 56yo RT-handed female with history significant for anxiety, depression, DM, HLD, HTN, lumbar disc displacement, lumbosacral neuritis, [place], and morbid obesity admitted to the hospital for focal neurologic deficits, now resolved. After 7pm on 02/18 patient noted bilateral shaking of her arms, stronger in forearms and hands. She then found herself on the floor with no memory of how she got there although she insists she did not lose consciousness and did not fall.When she attempted to stand, she states she was unable to coordinate her limbs to accomplish this goal but denies any weakness that prevented it. Simultaneously, she reports word finding difficulty whereas she was able to think about what she wanted to say, but could not get the words out. She arrived to [facility] Emergency Department at 10pm. Upon arrival, the shaking had resolved but the word finding difficulty continued. This resolved prior to being seen by admitting hospitalist at approximately midnight. She has no complaints this morning 02/19 and states she feels "100 times better". ROS: productive cough with wheezing for the past several days as well as increased anxiety for the past few months. Denies any chest pain, SOB, NV, diarrhea, constipation, fever, CONRAD, diplopia, blurred vision, or any other symptoms. EMS reported discovering multiple pill containers upon arrival not included on patient's medication list. Patient's daughter also contacted ER to inform staff of her mother having an opiate addiction and a tendency to mix medications to increase effects. When discussed with patient, she vehemently denied the possibility of too much or mixed medications. Past Medical/Surgical History Medical History: Anxiety Depression Degenerative Arthritis Diabetes II GERD HLD HTN Hypothyroidism Lumbar disc displacement Lumbosacral neuritis Osteoporosis Myocardial infarction - summer 2016, no interventions Morbid obesity Splenosis HX: ELIO, DVT, Sepsis Surgical History: Appendectomy Hernia Repair Cholecystectomy Kyphoplasty L3 Family History Asthma, Diabetes, Cancer (skin), Heart failure/disease, HTN, Kidney stones Mother: living 86- HTN, [place] Father: passed at 86yo - DM, HTN, [place], dementia Social History Smoking Status: Former Smoker (Quit 1991 - 66pack year history) History of Alcohol Use: No Drug Use: none Marital Status: single Housing Status: lives with family (17yo son) 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 Patient states she is being followed by pain management clinic out of [place] and is on a taper program, currently on 4x daily 15mg oxycodone for chronic pain management Review of Systems Constitutional: + fatigue, No fever, No chills, No sweats, No weakness Eyes: No worsening of vision, No discharge, No diplopia ENT: No hearing loss, No trouble swallowing Respiratory: + cough (Productive for past few days), + wheezing (with cough), No shortness of breath Cardiac: No chest pain, No palpitations Abdomen: No pain, No nausea, No vomiting, No diarrhea, No constipation Neurologic: + memory loss (Unclear of details surrounding event), + numbness/ tingling, No paralysis, No weakness, No vertigo Psychiatric: + anxiety (Has been worse lately) All Other Systems: Reviewed and Negative MRSA positive Allergies Coded Allergies: Aspirin (Verified Allergy, Severe, SHORT OF BREATH, 02/18/17) Cephalexin (Verified Allergy, Severe, EDEMA OF FACE,LIPS,TONGUE, 02/18/17) Ketorolac Tromethamine (Verified Allergy, Severe, SHORTNESS OF BREATH, ) Latex2 -Systemic Allergic Response (Verified Allergy, Severe, DIFFICULTY BREATHING, 02/18/17) NSAIDs (Verified Allergy, Severe, SHORT OF BREATH, 02/18/17) Sulfa Antibiotics (Verified Allergy, Unknown, UNKNOWN- HAD RXN WHEN LITTLE , 02/18/17) Simvastatin (Verified Adverse Reaction, Intermediate, myalgias, 02/18/17) Metformin (Verified Adverse Reaction, Mild, GI SYMPTOMS, 02/18/17) Uncoded Allergies: adhesive (Allergy, Mild, rash,blister, 01/11/17) SORBAVIEW adhesive dressing Medications Current Inpatient Medications Medications (Trade) Dose Ordered Sig/Sid Route Start Time Stop Time Status Last Admin Dose Admin Miscellaneous Information (Pharmacist Discharge Med Rec Consult) 1 ea UD PRN N/A 02/19/17 00:30 03/21/17 00:29 Enoxaparin Sodium (Lovenox Inj) 40 mg Q24H SC 02/19/17 09:00 03/21/17 08:59 Albuterol (Ventolin Hfa Inhaler) 2 puffs QID PRN INH 02/19/17 00:30 03/21/17 00:29 Albuterol Sulfate (Ventolin 0.5% 2.5MG/0.5ML Neb) 2.5 mg Q4 PRN INH 02/19/17 00:30 03/21/17 00:29 Amitriptyline HCl (Elavil Tab) 50 mg HS PO 02/19/17 21:00 03/21/17 20:59 Clopidogrel Bisulfate (plAVix TAB) 75 mg DAILY PO 02/19/17 09:00 03/21/17 08:59 Fluoxetine HCl (Prozac Cap) 40 mg HS PO 02/19/17 21:00 03/21/17 20:59 Salmeterol Xinafoate/ Fluticasone (Advair Diskus 500/50 Inh) 1 puff BID INH 02/19/17 09:00 03/21/17 08:59 Levothyroxine Sodium (Synthroid Tab) 150 mcg DAILYBB PO 02/19/17 06:00 03/21/17 06:59 02/19/17 04:53 150 MCG Montelukast Sodium (Singulair Tab) 10 mg QAM PO 02/19/17 09:00 03/21/17 08:59 Nitroglycerin (Nitrostat Tab) 0.4 mg PRN PRN UT 02/19/17 00:30 03/21/17 00:29 Rosuvastatin Calcium (Crestor Tab) 20 mg DAILY PO 02/19/17 09:00 03/21/17 08:59 Miscellaneous Information (Order Awaiting Action) 1 ea QS N/A 02/19/17 01:30 03/21/17 01:29 Metoprolol Succinate (Toprol Xl Tab) 100 mg DAILY PO 02/19/17 09:00 03/21/17 08:59 Pantoprazole Sodium (Protonix Tab) 40 mg QAM PO 02/19/17 09:00 03/21/17 08:59 Miscellaneous (Iv Fluids Completed) 1 ea PRN PRN N/A 02/19/17 02:45 02/19/18 02:44 Gabapentin (Neurontin Tab) 800 mg TID PO 02/19/17 09:00 03/21/17 08:59 Ioversol (Optiray 320) 100 ml UD PRN IV 02/19/17 04:45 02/23/17 04:44 Oxycodone HCl (Roxicodone Immediate Rel Tab) 30 mg Q8 PRN PO 02/19/17 06:00 03/05/17 05:59 Insulin Aspart (novoLOG ASPART) SLIDING SCALE G... ACHS SC 02/19/17 07:00 03/21/17 06:59 Physical Exam Date Time Temp Pulse Resp B/P (MAP) Pulse Ox O2 Delivery O2 Flow Rate FiO2 02/19/17 04:00 Room Air 02/19/17 03:40 37.0 92 18 114/70 (85) 94 Room Air 02/19/17 02:00 36.9 84 18 132/76 96 Room Air 02/19/17 01:53 82 18 127/84 98 Room Air 02/19/17 01:05 82 02/18/17 23:34 98 Room Air 02/18/17 23:32 83 18 114/62 98 Room Air 02/18/17 22:00 36.9 96 18 126/88 96 Room Air 02/18/17 21:50 94 General Appearance: no apparent distress, + obese Eyes: bilateral eyes normal inspection, bilateral eyes PERRL, bilateral eyes EOMI ENT: hearing grossly normal, pharynx normal Neck: supple, no adenopathy, no JVD, no carotid bruits, trachea midline Respiratory: no respiratory distress, no accessory muscle use Cardiovascular: regular rate, rhythm, no JVD, no murmur Musculoskeletal: normal strength (5/5 throughout), normal tone Neurologic/Psychiatric: coin purse framer II-XII nml as tested, no motor/sensory deficits, alert, normal mood/affect, oriented x 3 Mental Status: Patient is alert and oriented to self, location, situation, and time (month+year). Able to name objects and colors, able to repeat phrases without difficulty Motor: Symmetrical 5/5 strength throughout. No slurring of speech, appropriate rate Tone: smooth throughout Reflexes: Symmetrical 1/4 in UEs. 1/4 Achilles bilaterally, 0/4 patellar bilaterally which follows with medical history of damage/repair at L3 Gait: Appropriate, no abnormalities with movement, no dizziness/weakness with positional change Sensory: symmetrical to fine touch, no pronator drift Cerebellar: able to complete finger to nose without difficulty, no ataxic movements noted. Minor tremor noted with arms extended, palms up, eyes closed Cranial Nerves * II: Vessels and optic disc appreciated on funduscopic exam, pupils equal, round, reactive to light. Vision grossly normal * III,IV,: EOMI with no nystagmus or reported diplopia * V: symmetric sensation V1, V2, V3 * VII: 5/5 strength, no asymmetry or weakness * VIII: hearing grossly normal * IX,X: equal palatine raise, no trouble swallowing * XI:equal 5/5 shoulder raise * XII: no deviation on protrusion, 5/5 strength Laboratory Results Last 24 Hours Test 02/18/17 21:55 02/18/17 22:12 02/18/17 23:17 02/19/17 03:07 Urine Opiates Screen POS Urine Methadone, Qualitative NEG Urine Barbiturates NEG Urine Phencyclidine (PCP) Level NEG Ur Amphetamine/Methamphetamine NEG MDMA (Ecstasy) Screen NEG Urine Benzodiazepines Screen NEG Urine Cocaine Metabolite NEG Urine Marijuana (THC) NEG White Blood Count 11.73 K/uL Red Blood Count 4.25 M/uL Hemoglobin 12.1 g/dL Hematocrit 36.8 % Mean Corpuscular Volume 86.6 fL Mean Corpuscular Hemoglobin 28.5 pg Mean Corpuscular Hemoglobin Concent 32.9 g/dl Platelet Count 397 K/uL Mean Platelet Volume 9.9 fL Neutrophils (%) (Auto) 55.8 % Lymphocytes (%) (Auto) 26.1 % Monocytes (%) (Auto) 8.3 % Eosinophils (%) (Auto) 8.4 % Basophils (%) (Auto) 1.1 % Neutrophils # (Auto) 6.54 K/uL Lymphocytes # (Auto) 3.06 K/uL Monocytes # (Auto) 0.97 K/uL Eosinophils # (Auto) 0.99 K/uL Basophils # (Auto) 0.13 K/uL RDW Standard Deviation 45.7 fL RDW Coefficient of Variation 14.6 % Immature Granulocyte % (Auto) 0.3 % Immature Granulocyte # (Auto) 0.04 K/uL Prothrombin Time 10.0 SECONDS Prothromb Time International Ratio 0.9 Activated Partial Thromboplast Time 22.6 SECONDS Partial Thromboplastin Ratio 0.9 Sodium Level 140 mmol/L 141 mmol/L Potassium Level mmol/L 3.2 mmol/L 3.1 mmol/L Chloride Level 107 mmol/L 107 mmol/L Carbon Dioxide Level 27 mmol/L 25 mmol/L Anion Gap 6.0 mmol/L 9.0 mmol/L Blood Urea Nitrogen 10 mg/dl 9 mg/dl Creatinine 0.82 mg/dl 0.71 mg/dl Estimated GFR () 91.4 108.8 Estimated GFR (Non- 78.9 93.9 BUN/Creatinine Ratio 12.0 12.4 Random Glucose 148 mg/dl 119 mg/dl Estimated Average Glucose 166 mg/dl Hemoglobin A1c 7.4 % Calcium Level 8.2 mg/dl 8.2 mg/dl Troponin I < 0.015 ng/ml < 0.015 ng/ml Est Creatinine Clear Calc Drug Dose 99.9 ml/min Test 02/19/17 06:26 Bedside Glucose 110 mg/dl Assessment & Plan Patient is a 56yo RT-handed female with history significant for anxiety, depression, DM, HLD, HTN, lumbar disc displacement, lumbosacral neuritis, [place], and morbid obesity admitted to the hospital for focal neurologic deficits including word-finding difficulty and bilateral UE shaking, now resolved. Focal neurologic deficits, now resolved * DDX: CVA v. TIA v. medication induced * CVA v. TIA * Patient has several risk factors: smoking history, HLD, HTN, DM * CT without contrast showed no acute hemorrhage and complete resolution of symptoms make CVA unlikely * CVA cannot be ruled out without MRI which patient refuses * Bilateral arm shaking not typical of TIA * MRA of head to assess stenosis/obstruction/structural differences * U/S carotids to assess stenosis/obstruction - no significant stenosis, mild wall plaque bilaterally * Echocardiogram to assess cardiac structure and function * Medication * Malingering is a possibility with reported substance abuse from daughter, EMS findings of multiple pill containers not on patient's medication list, having physicians in multiple cities - while patient has requested pain medications, she has not been overly demanding or requesting large amounts, patient reports already being on a opiate taper with hopes of eventually not requiring the medication inconsistent with drug seeking behavior * TCA + SSRI increases risk of serotonin syndrome - synergistic effect plus recent illness could have induced sudden BP change causing word finding issues plus anxiety and tremor could explain the bilateral shaking Hypokalemia: 3.1 * Corrected with 40mEq potassium chloride * Patient asymptomatic, no EKG changes DM: HA1c 7.4, BG 119 * Diabetic diet * Sliding insulin scale * Glucose monitoring with meals HTN: 141/95 * Continue home metoprolol * Consider addition of ACEi - patient is diabetic with [place] history Asthma, HLD, Hypothyroidism, GERD * Continue home medications as prescribed
--- NOTE | 2017-02-19 12:35 | Discharge Summary ---
Discharge Summary Date of Service Feb 19, 2017. (Elizabeth Breen PA-C) Discharge Summary Admission Date: Feb 19, 2017 at 01:14 Discharge Date: Feb 19, 2017 Discharge Disposition: Home Principal Diagnosis: Dysarthria Problems/Secondary Diagnoses: Anxiety/depression asthma arthritis hypokalemia T2DM GERD h/o DVT HLD HTN hypothyroidism h/o NSTEMI chronic low back pain Immunizations: Have You Had Influenza Vaccine: No Influenza Vaccine Date: Jan 07, 2013 History of Tetanus Vaccine?: Unknown History of Pneumococcal: Unknown Pneumococcal Date: Jan 08, 2012 History of Hepatitis B Vaccine: Unknown Procedures: HEAD CT NONCONTRAST CT DOSE: 537.48 mGy.cm HISTORY: Confusion. Stroke TECHNIQUE: Multiaxial CT images of the head were performed without the use of intravenous contrast. Automated exposure control was utilized for this study. A dose lowering technique was utilized adhering to the principles of ALARA. Comparison: Head CT 05/10/2014. Findings: Moderate mucosal thickening within the right sphenoid sinus and left maxillary sinus. The mastoid air cells are clear. The calvarium and skull base are intact. The ventricles and sulci are within normal limits. There is no mass, hematoma, midline shift, or acute infarct. Impression: No acute intracranial abnormality. Electronically signed by: Matteo Rojas M.D. 02/18/2017 10:47 PM Dictated Date/Time: 02/18/2017 10:42 PM The status of this report is Signed. Draft = Not yet reviewed or approved by Radiologist. Signed = Reviewed and approved by Radiologist. CAROTID DOPPLER NECK ART HISTORY: Mental status change TIA COMPARISON: None. TECHNIQUE: Real-time, grayscale, and color Doppler sonography of the carotid arteries was performed. Imaging reviewed in the transverse and longitudinal planes. All measurements were calculated based on NASCET criteria. FINDINGS: Antegrade flow is seen in the bilateral vertebral arteries. The brachial pressures are hemodynamically similar. Mild plaque formation bilaterally The peak systolic velocity within the right ICA is 67. The right systolic ratio is 1.2. The peak systolic velocity within the left ICA is 76. The left systolic ratio is 1.1. IMPRESSION: No hemodynamically significant stenosis seen within the carotid arteries. Mild plaque formation bilaterally The above report was generated using voice recognition software. It may contain grammatical, syntax or spelling errors. Electronically signed by: Lionel Alexander M.D. 02/19/2017 9:59 AM Dictated Date/Time: 02/19/2017 9:59 AM HEAD CTA HISTORY: TECHNIQUE: Multiaxial CT images of the head were performed after the intravenous administration of contrast to evaluate the major cerebral vessels. Maximum intensity projection images were also obtained. A dose lowering technique was utilized adhering to the principles of ALARA. COMPARISON: Head CT 02/18/2017. FINDINGS: There is no mass, hematoma, midline shift, or acute infarct. Visualized intracranial internal carotid arteries, distal vertebral arteries, and basilar artery are widely patent. There is no significant stenosis, occlusion, or aneurysm seen within the bilateral ACAs, MCAs, or coroner forensic technician. Moderate mucosal thickening within the right sphenoid sinus and left maxillary sinus are again noted. The mastoid air cells are clear. The calvarium and skull base are intact. IMPRESSION: No significant stenosis, occlusion, or aneurysm within the [place] of [place]. Electronically signed by: Matteo Rojas M.D. 02/19/2017 3:18 PM Dictated Date/Time: 02/19/2017 3:11 PM The status of this report is Signed. Draft = Not yet reviewed or approved by Radiologist. Signed = Reviewed and approved by Radiologist. CT HEAD WITHOUT CONTRAST (CT) CLINICAL HISTORY: Mental status change. Stroke versus transient ischemic attack. COMPARISON STUDY: 02/18/2017 TECHNIQUE: Axial CT of the brain is performed from the vertex to the skull base. IV contrast was not administered for this examination. A dose lowering technique was utilized adhering to the principles of ALARA. CT DOSE: FINDINGS: No intra or extra-axial mass lesions are visualized. There is no CT evidence of acute cortical infarction. There is no evidence of midline shift. There is no acute hemorrhage. No calvarial fractures are visualized. There is no evidence of pathologic ventricular dilatation. There is bilateral maxilla sinus mucosal thickening. There are postsurgical changes involving the medial wall the left maxilla sinus. There is sphenoid sinus mucosal thickening. There is minor ethmoid sinus mucosal thickening. The frontal sinuses are relatively hypoplastic. IMPRESSION: 1. Stable paranasal sinus disease 2. No acute intracranial findings Electronically signed by: Dhaval Guevara M.D. 02/19/2017 3:18 PM Dictated Date/Time: 02/19/2017 3:16 PM The status of this report is Signed. Draft = Not yet reviewed or approved by Radiologist. Signed = Reviewed and approved by Radiologist. CT NECK ANGIO WITH CONTRAST CLINICAL HISTORY: Mental status change. Stroke versus transient ischemic attack. COMPARISON STUDY: No previous studies for comparison. TECHNIQUE: CT angiography was performed from the aortic arch to the skull base. MIP imaging was performed. The patient was scanned in a dynamic helical fashion during intravenous administration of 93 cc of Optiray 320. A dose lowering technique was utilized adhering to the principles of ALARA. CT DOSE: 1061.59 mGy.cm Technique: CT angiogram of the carotid and vertebral arteries was obtained using intravenous contrast and 3-D reconstruction. NASCET criteria was utilized. Findings: Inflammatory changes are visualized within the sphenoid and maxilla sinuses. The right carotid revealed no evidence of aneurysm and no evidence of dissection. There is no evidence of hemodynamic significant stenosis. The left carotid revealed no evidence of hemodynamic significant stenosis. There is no evidence of aneurysm. There is no evidence of dissection. There is no evidence of hemodynamically significant vertebral stenosis. There is no evidence of vertebral dissection. IMPRESSION: No evidence of hemodynamically significant carotid or vertebral artery stenosis. No evidence of dissection. Electronically signed by: Dhaval Guevara M.D. 02/19/2017 3:52 PM Dictated Date/Time: 02/19/2017 3:18 PM Consultations: Neurology (Elizabeth Breen, FABIANC) Medication Reconciliation Changed Medications: Amitriptyline HCl (Amitriptyline HCl) 25 Mg Tab 25 MG PO HS for 7 Days, #7 TAB (Changed from: Amitriptyline Hcl 50 Mg Tab 50 Mg PO HS) Continued Medications: Albuterol Hfa (Ventolin Hfa) 200 Puffs/26891 Mcg Aers 2 PUFFS INH QID PRN for Wheezing Albuterol Sulf (Albuterol Sulfate) 2.5 Mg/0.5 Ml Nebu 1 DOSE NEB Q4 PRN for Wheezing Carisoprodol (Soma) Unknown Strength Tab 1 TAB PO UD Clopidogrel (Plavix) 75 Mg Tab 75 MG PO DAILY, TAB Fluoxetine (Prozac) 40 Mg Cap 40 MG PO HS, CAP Fluticasone Prop/Salmeterol (Advair Diskus 500/50 60 Dose) 1 Ea Aerp 1 PUFF INH BID, INHALER Gabapentin (Neurontin) 800 Mg Tab 800 MG PO TID, TAB Levothyroxine Sodium (Synthroid) 150 Mcg Tab 150 MCG PO QAM, TAB Metoprolol Succinate (Metoprolol Succinate ER) 100 Mg Tabcr 100 MG PO DAILY Montelukast Sodium (Singulair) 10 Mg Tab 10 MG PO QAM, TAB Nitroglycerin (Nitrostat) 0.4 Mg Tab 0.4 MG UT PRN PRN for chest pain, BTL Omeprazole (Prilosec) 40 Mg Cap 40 MG PO QAM, CAP Rosuvastatin Calcium (Crestor) 20 Mg Tab 20 MG PO DAILY, TAB Referrals At Discharge Follow up Referrals: Family Practice Referral - Within 1 Week with Norberto Anderson MD Discharge Exam Review of Systems: Constitutional: No fever, No chills, No sweats, No weakness, No fatigue ENT: No hearing loss Respiratory: No cough, No shortness of breath, No hemoptysis Cardiovascular: No chest pain, No edema, No palpitations Abdomen: No pain, No nausea, No vomiting, No diarrhea, No constipation Musculoskeletal: No joint pain, No muscle pain, No swelling, No calf pain Genitourinary - Female: No dysuria, No hematuria Neurologic: No weakness, No numbness/tingling Psychiatric: No depression symptoms, No anxiety Hematologic / Lymphatic: No abnormal bleeding/bruising Integumentary: No rash, No itch, No new/changing skin lesions Physical Exam: General Appearance: no apparent distress, + obese Eyes: normal inspection, PERRL ENT: hearing grossly normal Neck: supple Respiratory/Chest: lungs clear, no respiratory distress, no accessory muscle use Cardiovascular: regular rate, rhythm Abdomen / GI: normal bowel sounds, non tender, soft Extremities: no calf tenderness, no pedal edema Neurologic/Psychiatric: alert, normal mood/affect, oriented x 3 Skin: normal color, warm/dry, no rash (Elizabeth Breen, PA-C) Hospital Course Admission H&P: This is a 56 yr old F who presents with 2 hours of dysarthria that has since resolved. She did have some accompanying shaking, but otherwise denies weakness / numbness/tingling. She reports having a similar event a few years ago but says this episode was worse. She does have a history of an [place] earlier this year. The patients daughter supposedly reported that the patient has been mixing different drugs, lately. Physical Exam Vital Signs Date Time Temp Pulse Resp B/P (MAP) Pulse Ox O2 Delivery O2 Flow Rate FiO2 02/19/17 01:53 82 18 127/84 98 Room Air 02/19/17 01:05 82 02/18/17 23:34 98 Room Air 02/18/17 23:32 83 18 114/62 98 Room Air 02/18/17 22:00 36.9 96 18 126/88 96 Room Air 02/18/17 21:50 94 General Appearance: no apparent distress, + obese Eyes: normal inspection, PERRL ENT: hearing grossly normal Neck: supple, thyroid normal Respiratory/Chest: no respiratory distress, no accessory muscle use, + decreased breath sounds Cardiovascular: regular rate, rhythm, no edema Abdomen/GI: normal bowel sounds, non tender, soft Back: no CVA tenderness Extremities/Musculoskelatal: no calf tenderness Neurologic/Psych: alert, normal mood/affect, oriented x 3 Hospital Course: This is a 56 y/o F who presents with dysarthria that has resolved concerning for TIA vs CVA Dysarthria, ?secondary to TIA/CVA vs medication misuse: - Admitted to [facility] for cardiac monitoring- no acute events - Patient refused brain MRI - Head CT x2 and CTA of head/neck obtained - Carotid ultrasound- w/out significant stenosis - ECHO - Continue Plavix and Crestor - Patient denied misuse of medications- daughter suggesting possibly -- Encouraged disposing of all old medications, weaning from pain medications /anxiety medication, and only taking medications as prescribed T2DM- HgbA1c 7.4%: - Currently on no outpatient medications- discussed w/ patient, would like to f/ u w/ PCP first to discuss options - Diabetic counselling consult - BSG ACHS and ISS Hypokalemia: Replaced w/ PO KCL supplement Asthma: Continue home inhalers CAD, h/o [place], HLD: Continue Plavix, Rosuvastatin, Metoprolol Chronic pain, neuropathy- follows w/ pain management: - Continue Gabapentin 800 mg TID, Soma, Oxycodone- discussed trying to wean from pain medications Hypothyroidism: Continue Synthroid Anxiety, depression: - Continue Amitriptyline + Prozac- neurology recommending weaning from one medication due to increased risk of serotonin syndrome- f/u outpatient -- Decrease Amitriptyline to 25 mg HS x1 week then discontinue GI prophylaxis: Protonix- resume Prilosec at discharge DVT prophylaxis: Lovenox SQ daily Code Status: LEVEL I, FULL Dispo: Discharge to home Total Time Spent: Greater than 30 minutes This includes examination of the patient, discharge planning, medication reconciliation, and communication with other providers. (Elizabeth Breen PA-C) ZEINA Physician Supervision Note: I interviewed and examined the patient. Discussed with Elizabeth Breen PAC and agree with findings and plan as documented in the note. Any exceptions or clarifications are listed here: None I visited this patient and discussed the case with Dr. Hankins, we do not feel this is a TIA but likely and toxic encephalopathy from medications with concern for amitriptyline interacting with other medicines I saw the patient prior to her leaving she was in awake alert and oriented she no complaints or vitals are stable her heart rate was regular lungs were clear Recommended to go home to reduce her amitriptyline by 50% for 1 week then discontinue it with recommended follow-up with primary care provider Dr. Norberto Anderson to [facility] Documented By: Stephon Farfan (Stephon Farfan M.D.) Discharge Instructions Please refer to the electronic Patient Visit Report (Discharge Instructions) for additional information. (Elizabeth Breen, MAGALYS) Follow-Up Please follow-up with your PCP within 5-7 days Please follow-up/keep all of your subspecialty appointments (Elizabeth Breen PA-C) Additional Copies To Norberto Anderson MD
[2017-02-19] MEDS ORDERED: AMT25 PO (14:05)
--- NOTE | 2017-02-19 14:07 | Discharge Instructions ---
Discharge Instructions Date of Service Feb 19, 2017. Admission Reason for Admission: TIA Discharge Discharge Diagnosis / Problem: Questionable TIA vs encephalopathy due to medication misuse/interaction Discharge Goals Goal(s): Decrease discomfort, Improve function, Learn about illness, Diagnostic testing, Therapeutic intervention, Prevent Disease Progression Activity Recommendations Activity Limitations: resume your previous activity . Instructions / Follow-Up Instructions / Follow-Up Resume all regular home medications as prescribed. ONLY TAKE MEDICATIONS PRESCRIBED TO YOU. Your HgbA1c (average glucose over several months) was elevated. Please discuss this with your PCP at follow-up for further diabetic management options. It is recommended by neurology you wean from either Amitriptyline or Prozac due to concern for interaction. Amitriptyline was decreased to 25 mg at night for one week, then will be discontinued. You suggested you are interested in weaning from Oxycodone. 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 You stated you have been under a lot of stress lately. It is highly recommended you discuss this with your PCP for further management and/or referral to psychiatry. Risk Factors for Stroke: You can reduce your chances of stroke by working with your medical provider to adopt a healthy lifestyle. Some specific ways to lower your chance of stroke are: * If you are a smoker, now is the time to stop smoking cigarettes * If you are diabetic, improve the control of your blood sugars * Avoid excessive amounts of alcohol * Control high blood pressure * Lose weight if you are overweight * Be sure to lead an active lifestyle * Eat a healthy diet low in salt, cholesterol and fat You should know about other risk factors for stroke that you are unable to control. These include: * Age 55 years or older * Male gender * Certain racial groups: , or / * Family History of Stroke, Mini stroke or Heart Attack * Sickle Cell Disease Follow Up: It is important for you to keep your follow up appointments with your medical provider. Please follow-up with your PCP within 5-7 days Please follow-up/keep all of your subspecialty appointments Current Hospital Diet Patient's current hospital diet: AHA Diet (Heart Healthy), Diabetes Type 2 Diet Discharge Diet Recommended Diet: AHA Diet (Heart Healthy), Diabetes Type 2 Diet Pending Studies Studies pending at discharge: no Laboratory Results Hemoglobin A1c Test 02/18/17 22:12 Range/Units Estimated Average Glucose 166 mg/dl Hemoglobin A1c 7.4 H 4.5-5.6 % Medical Emergencies . Who to Call and When: Medical Emergencies: Call 911 immediately if you experience any of the following warning signs and symptoms of Stroke: * Sudden numbness or weakness of the face, arm or leg, especially on one side of the body * Sudden confusion, trouble speaking or understanding * Sudden trouble seeing in one or both eyes * Sudden trouble walking, dizziness, loss of balance or coordination * Sudden severe headache with no cause Do not delay calling 911 if you experience any warning signs or symptoms of a stroke. Delay in seeking medical attention may affect what treatments can be given to you. . Non-Emergent Contact Non-Emergency issues call your: Primary Care Provider . . "Provider Documentation" section prepared by Elizabeth Breen. . Stroke Core Measures Reason no t-PA for Stroke: Treatment not indicated Reason no antithrom by day 2: Treatment provided - N/A Reason no antithrom at D/C: Treatment provided - N/A Reason no statin at D/C: Treatment provided - N/A Reason no anticoag w/a fib: Treatment not indicated VTE Core Measure Inpt VTE Proph given/why not?: Enoxaparin (Lovenox)SQ
--- NOTE | 2017-02-19 15:19 | DIAGNOSTIC IMAGING REPORT ---
CT HEAD WITHOUT CONTRAST (CT) CLINICAL HISTORY: Mental status change. Stroke versus transient ischemic attack. COMPARISON STUDY: 02/18/2017 TECHNIQUE: Axial CT of the brain is performed from the vertex to the skull base. IV contrast was not administered for this examination. A dose lowering technique was utilized adhering to the principles of ALARA. CT DOSE: FINDINGS: No intra or extra-axial mass lesions are visualized. There is no CT evidence of acute cortical infarction. There is no evidence of midline shift. There is no acute hemorrhage. No calvarial fractures are visualized. There is no evidence of pathologic ventricular dilatation. There is bilateral maxilla sinus mucosal thickening. There are postsurgical changes involving the medial wall the left maxilla sinus. There is sphenoid sinus mucosal thickening. There is minor ethmoid sinus mucosal thickening. The frontal sinuses are relatively hypoplastic. IMPRESSION: 1. Stable paranasal sinus disease 2. No acute intracranial findings Electronically signed by: Dhaval Guevara M.D. 02/19/2017 3:18 PM Dictated Date/Time: 02/19/2017 3:16 PM
--- NOTE | 2017-02-19 15:19 | DIAGNOSTIC IMAGING REPORT ---
HEAD CTA HISTORY: TECHNIQUE: Multiaxial CT images of the head were performed after the intravenous administration of contrast to evaluate the major cerebral vessels. Maximum intensity projection images were also obtained. A dose lowering technique was utilized adhering to the principles of ALARA. COMPARISON: Head CT 02/18/2017. FINDINGS: There is no mass, hematoma, midline shift, or acute infarct. Visualized intracranial internal carotid arteries, distal vertebral arteries, and basilar artery are widely patent. There is no significant stenosis, occlusion, or aneurysm seen within the bilateral ACAs, MCAs, or mining engineering technologist. Moderate mucosal thickening within the right sphenoid sinus and left maxillary sinus are again noted. The mastoid air cells are clear. The calvarium and skull base are intact. IMPRESSION: No significant stenosis, occlusion, or aneurysm within the [place] of [place]. Electronically signed by: Matteo Rojas M.D. 02/19/2017 3:18 PM Dictated Date/Time: 02/19/2017 3:11 PM
--- NOTE | 2017-02-19 15:53 | DIAGNOSTIC IMAGING REPORT ---
CT NECK ANGIO WITH CONTRAST CLINICAL HISTORY: Mental status change. Stroke versus transient ischemic attack. COMPARISON STUDY: No previous studies for comparison. TECHNIQUE: CT angiography was performed from the aortic arch to the skull base. MIP imaging was performed. The patient was scanned in a dynamic helical fashion during intravenous administration of 93 cc of Optiray 320. A dose lowering technique was utilized adhering to the principles of ALARA. CT DOSE: 1061.59 mGy.cm Technique: CT angiogram of the carotid and vertebral arteries was obtained using intravenous contrast and 3-D reconstruction. NASCET criteria was utilized. Findings: Inflammatory changes are visualized within the sphenoid and maxilla sinuses. The right carotid revealed no evidence of aneurysm and no evidence of dissection. There is no evidence of hemodynamic significant stenosis. The left carotid revealed no evidence of hemodynamic significant stenosis. There is no evidence of aneurysm. There is no evidence of dissection. There is no evidence of hemodynamically significant vertebral stenosis. There is no evidence of vertebral dissection. IMPRESSION: No evidence of hemodynamically significant carotid or vertebral artery stenosis. No evidence of dissection. Electronically signed by: Dhaval Guevara M.D. 02/19/2017 3:52 PM Dictated Date/Time: 02/19/2017 3:18 PM
[2017-02-19] MEDS ORDERED: AMITRIPTYLINE HCL 25 MG TAB PO SCH (21:00)
[2017-02-19] MEDS ORDERED: FLUOXETINE HCL 20 MG CAP PO SCH (21:00)
[2017-02-19] MEDS: ACETAMINOPHEN 325 MG TAB PO PRN (21:44)
[2017-02-19] MEDS ORDERED: NURSING VERBAL MED ORDER ONE (21:45)
[2017-02-20] MEDS: OXYCODONE HCL IR 30 MG TAB (IMMEDIATE RELEASE) PO PRN ×2 (01:36→10:06)
[2017-02-20 03:47] VITALS: BP 137/76; PULSE 72; TEMP 37; O2SAT 91
[2017-02-20] MEDS: LEVOTHYROXINE 150 MCG TAB PO SCH (05:42)
[2017-02-20] MEDS: INSULIN ASPART 100 UNITS/ML 3 ML PEN SC SCH ×2 (07:00→11:00)
[2017-02-20 07:29] LABS: BUN/CREATININE RATIO 16.1 (10-20); CALCIUM 8.4 mg/dl (8.5-10.1); CHOLESTEROL/HDL RATIO 4.3; CREATININE 0.83 mg/dl (0.60-1.20); POTASSIUM 4.1 mmol/L (3.5-5.1)
[2017-02-20 07:30] LABS: BASO % 1.3 %; BASO ABS # 0.13 K/uL (0-0.2); COMPLETE YES; HEMATOCRIT 35.9 % (37-47); IG% 0.2 %; LYMPH % 35.1 %; LYMPH ABS # 3.44 K/uL (1.2-3.4); MEAN CELL VOLUME 87.6 fL (80-100); MEAN CORPUSCULAR HEMOGLOBIN 28.3 pg (25-34); MEAN CORPUSCULAR HGB CONC 32.3 g/dl (32-36); MEAN PLATELET VOLUME 10.3 fL (7.4-10.4); NEUT % 44.4 %; PLATELET COUNT 395 K/uL (130-400); WHITE BLOOD COUNT 9.79 K/uL (4.8-10.8)
[2017-02-20] MEDS: CLOPIDOGREL BISULFATE 75 MG TAB PO SCH (08:00)
[2017-02-20] MEDS: PANTOprazole SOD 40 MG TAB PO SCH (08:00)
[2017-02-20] MEDS: METOPROLOL SUCC 50MG EXT REL TAB PO SCH (08:01)
[2017-02-20] MEDS: MONTELUKAST SOD 10 MG TAB PO SCH (08:01)
[2017-02-20] MEDS: ROSUVASTATIN CALCIUM 20 MG TAB PO SCH (08:02)
[2017-02-20] MEDS: MAGNESIUM OXIDE 400 MG TAB PO SCH (08:02)
[2017-02-20] MEDS: ENOXAPARIN 40 MG/0.4 ML SYR SC SCH (08:02)
[2017-02-20] MEDS: POTASSIUM CHLORIDE 20 MEQ TABCR PO SCH (08:03)
[2017-02-20] MEDS: FLUTICASONE/SALMETEROL (ADVAIR) 500/50 INH 14 PUFF INH SCH (08:03)
[2017-02-20] MEDS: GABAPENTIN 800 MG TAB PO SCH (08:03)
[2017-02-20] MEDS: ACETAMINOPHEN 325 MG TAB PO PRN (08:07)
[2017-02-20 08:26] VITALS: BP 144/111; PULSE 74; TEMP 37.1; O2SAT 93
--- NOTE | 2017-02-20 09:20 | Neurology Progress Notes ---
Neurology Progress Note Date of Service Feb 20, 2017. Subjective Patient feels well with no new symptomatology. She has no confusion , dizziness , or headache Nursing reports no further issues or events overnight. CT scan of the head yesterday showed no acute changes. CT angiography of the head and neck were unremarkable with no significant vascular anomalies or issues. Carotid ultrasound was unremarkable. I reviewed all these reports with the patient. Patient's blood pressures been stable. Objective Date Time Temp Pulse Resp B/P (MAP) Pulse Ox O2 Delivery O2 Flow Rate FiO2 02/20/17 08:26 37.1 74 16 144/111 (122) 93 02/20/17 04:00 Room Air 02/20/17 03:47 37.0 72 22 137/76 (96) 91 Room Air 02/20/17 00:00 Room Air 02/19/17 23:25 37.1 78 20 129/80 (96) 93 02/19/17 20:00 Room Air 02/19/17 19:04 37.0 80 16 145/88 (107) 92 Room Air 02/19/17 16:13 37.4 81 18 130/77 (94) 95 Room Air 02/19/17 16:00 95 Room Air 02/19/17 12:00 Room Air 02/19/17 11:00 37.2 101 18 139/95 (110) 95 Room Air Last 24 Hours Test 02/19/17 11:19 02/19/17 14:33 02/19/17 16:02 02/19/17 19:02 Bedside Glucose 132 mg/dl 126 mg/dl 144 mg/dl Troponin I < 0.015 ng/ml Test 02/19/17 19:37 02/20/17 06:16 02/20/17 06:24 Bedside Glucose 142 mg/dl 133 mg/dl White Blood Count 9.79 K/uL Red Blood Count 4.10 M/uL Hemoglobin 11.6 g/dL Hematocrit 35.9 % Mean Corpuscular Volume 87.6 fL Mean Corpuscular Hemoglobin 28.3 pg Mean Corpuscular Hemoglobin Concent 32.3 g/dl Platelet Count 395 K/uL Mean Platelet Volume 10.3 fL Neutrophils (%) (Auto) 44.4 % Lymphocytes (%) (Auto) 35.1 % Monocytes (%) (Auto) 10.0 % Eosinophils (%) (Auto) 9.0 % Basophils (%) (Auto) 1.3 % Neutrophils # (Auto) 4.34 K/uL Lymphocytes # (Auto) 3.44 K/uL Monocytes # (Auto) 0.98 K/uL Eosinophils # (Auto) 0.88 K/uL Basophils # (Auto) 0.13 K/uL RDW Standard Deviation 47.4 fL RDW Coefficient of Variation 14.9 % Immature Granulocyte % (Auto) 0.2 % Immature Granulocyte # (Auto) 0.02 K/uL Sodium Level 139 mmol/L Potassium Level 4.1 mmol/L Chloride Level 105 mmol/L Carbon Dioxide Level 29 mmol/L Anion Gap 5.0 mmol/L Blood Urea Nitrogen 13 mg/dl Creatinine 0.83 mg/dl Est Creatinine Clear Calc Drug Dose 85.6 ml/min Estimated GFR () 90.1 Estimated GFR (Non- 77.7 BUN/Creatinine Ratio 16.1 Random Glucose 152 mg/dl Calcium Level 8.4 mg/dl Triglycerides Level 344 mg/dl Cholesterol Level 134 mg/dl HDL Cholesterol 31 mg/dl LDL Cholesterol, Calculated 34 mg/dl VLDL Cholesterol, Calculated 69 mg/dl Cholesterol/HDL Ratio 4.3 Exam: She is awake and alert. Speech is normal that aphasia or dysarthria. Mood and affect are normal appropriate. Thought process seem intact. There is no abnormal involuntary movements noted. Strength is symmetrical throughout. Stance sitting up in bed is normal. Current Inpatient Medications Medications (Trade) Dose Ordered Sig/Sid Route Start Time Stop Time Status Last Admin Dose Admin Miscellaneous Information (Pharmacist Discharge Med Rec Consult) 1 ea UD PRN N/A 02/19/17 00:30 03/21/17 00:29 Enoxaparin Sodium (Lovenox Inj) 40 mg Q24H SC 02/19/17 09:00 03/21/17 08:59 02/20/17 08:02 40 MG Albuterol (Ventolin Hfa Inhaler) 2 puffs QID PRN INH 02/19/17 00:30 03/21/17 00:29 Albuterol Sulfate (Ventolin 0.5% 2.5MG/0.5ML Neb) 2.5 mg Q4 PRN INH 02/19/17 00:30 03/21/17 00:29 Amitriptyline HCl (Elavil Tab) 50 mg HS PO 02/19/17 21:00 03/21/17 20:59 02/19/17 21:05 50 MG Clopidogrel Bisulfate (plAVix TAB) 75 mg DAILY PO 02/19/17 09:00 03/21/17 08:59 02/20/17 08:00 75 MG Fluoxetine HCl (Prozac Cap) 40 mg HS PO 02/19/17 21:00 03/21/17 20:59 02/19/17 21:05 40 MG Salmeterol Xinafoate/ Fluticasone (Advair Diskus 500/50 Inh) 1 puff BID INH 02/19/17 09:00 03/21/17 08:59 02/20/17 08:03 1 PUFF Levothyroxine Sodium (Synthroid Tab) 150 mcg DAILYBB PO 02/19/17 06:00 03/21/17 06:59 02/20/17 05:42 150 MCG Montelukast Sodium (Singulair Tab) 10 mg QAM PO 02/19/17 09:00 03/21/17 08:59 02/20/17 08:01 10 MG Nitroglycerin (Nitrostat Tab) 0.4 mg PRN PRN UT 02/19/17 00:30 03/21/17 00:29 Rosuvastatin Calcium (Crestor Tab) 20 mg DAILY PO 02/19/17 09:00 03/21/17 08:59 02/20/17 08:02 20 MG Miscellaneous Information (Order Awaiting Action) 1 ea QS N/A 02/19/17 01:30 03/21/17 01:29 Metoprolol Succinate (Toprol Xl Tab) 100 mg DAILY PO 02/19/17 09:00 03/21/17 08:59 02/20/17 08:01 100 MG Pantoprazole Sodium (Protonix Tab) 40 mg QAM PO 02/19/17 09:00 03/21/17 08:59 02/20/17 08:00 40 MG Miscellaneous (Iv Fluids Completed) 1 ea PRN PRN N/A 02/19/17 02:45 02/19/18 02:44 Gabapentin (Neurontin Tab) 800 mg TID PO 02/19/17 09:00 03/21/17 08:59 02/20/17 08:03 800 MG Ioversol (Optiray 320) 100 ml UD PRN IV 02/19/17 04:45 02/23/17 04:44 Oxycodone HCl (Roxicodone Immediate Rel Tab) 30 mg Q8 PRN PO 02/19/17 06:00 03/05/17 05:59 02/20/17 01:36 30 MG Insulin Aspart (novoLOG ASPART) SLIDING SCALE G... ACHS SC 02/19/17 07:00 03/21/17 06:59 Magnesium Oxide (Mag-Ox Tab) 400 mg BID PO 02/19/17 09:00 03/21/17 08:59 02/20/17 08:02 400 MG Acetaminophen (Tylenol Tab) 650 mg Q6H PRN PO 02/19/17 21:45 03/21/17 21:44 02/20/17 08:07 650 MG Impression 1. Episode evening of February 18 of uncertain etiology. She had bilateral action tremor of the upper extremities (by history), nonspecific balance/coordination problems briefly, and some word-finding difficulties without actual dysarthria or aphasia otherwise. There was no evidence for focal neurologic findings such as weakness or numbness and she cleared after 2-3 hours. There is a concern that the patient had been taking extra medication or different medication because of her pain and other symptoms including significant anxiety. The patient denied this. Certainly, the this episode could be consistent with a TIA. Although her neurologic examination is unremarkable now a very tiny stroke cannot be excluded. Unfortunately, the patient is very adamant about not getting an MRI of the brain Alternatively, this episode last night may have had nothing to do with cerebral vascular disease. Some other type of medication effect/encephalopathy is probable. I do note that she is on amitriptyline and fluoxetine together. This would put her at risk for serotonin syndrome. 2. Chronic pain, particularly lumbar spine. This is stable. 3. Significant depression and anxiety by history. She continues to have increased anxiety. Fluoxetine is not helping this. 4. Multiple risk factors for stroke including hypertension, diabetes, dyslipidemia. She is a former smoker. Hemoglobin A1c was elevated at 7.4. 5. The patient has absent quadriceps reflexes but preserved Achilles reflexes. This is likely because she does not have any significant polyneuropathy and the absent quadriceps reflexes are likely due to mid lumbar spine disease Plan 1. I do not like the combination of fluoxetine and amitriptyline because of the possibility of serotonin syndrome. I would suggest one or the other be tapered off. She may need to see Psychiatry (as an outpatient) to come up with something different for anxiety. In the past, escitalopram is help. If she has tapered off amitriptyline, escitalopram could be used instead of fluoxetine. If the amitriptyline is capped, then I would go with bupropion for anxiety. All of this should be done as an outpatient. 4. Patient is interested in tapering off oxycodone. I agree with this. This should be done as an outpatient. 5. Control glucose Please contact me if I can be of further assistance on this case. I have no further neurologic testing or treatment recommendations to make at this time.
[2017-02-20 11:43] VITALS: BP 128/87; PULSE 66; TEMP 37.7; O2SAT 91
--- NOTE | 2017-02-20 19:24 | Progress Note ---
Subjective Date of Service: Feb 19, 2017. Subjective Patient was seen in conjunction with my PA she was doing well elected to keep her overnight for an additional data clear mental status Problem List Medical Problems: (1) Abdominal wall abscess Status: Acute (2) Acute exacerbation of chronic low back pain Status: Acute (3) Allergic reaction Status: Acute (4) Anxiety State Nos Status: Chronic (5) Asthma Status: Chronic (6) Cellulitis Status: Acute (7) Cellulitis of toe of left foot Status: Acute (8) Chalazion left upper eyelid Status: Acute (9) Contusion of left knee Status: Acute (10) Contusion of right foot Status: Acute (11) Degenerative arthritis of knee Status: Chronic (12) Depressive Disorder Nec Status: Chronic (13) Diab Niyah Wo Compl, Type Ii Or Unspec Type, Not Uncntrld Status: Chronic (14) Epigastric abdominal pain Status: Acute (15) Esophageal Reflux Status: Chronic (16) Headache Status: Acute (17) Hx-Venous Thrombosis&Embolism Status: Chronic (18) Hyperlipidemia Nec/Nos Status: Chronic (19) Hypertension Status: Chronic (20) Hypertension Status: Acute (21) Hypokalemia Status: Acute (22) Hypothyroidism Nos Status: Chronic (23) Leg pain, right Status: Acute (24) Lumbar Disc Displacement Status: Chronic (25) Lumbar radiculopathy Status: Acute (26) Lumbosacral Neuritis Nos Status: Chronic (27) Morbid Obesity Status: Chronic (28) Osteoporosis Nos Status: Chronic (29) Pneumonia Status: Acute (30) Splenosis Status: Chronic (31) Substernal chest pain Status: Acute (32) TIA (transient ischemic attack) Status: Acute (33) Urinary tract infection Status: Acute (34) UTI (urinary tract infection) Status: Acute (35) Wide-complex tachycardia Status: Acute Review of Systems Constitutional: No fever, No chills Respiratory: No cough, No sputum Objective Vital Signs Date Time Temp Pulse Resp B/P (MAP) Pulse Ox O2 Delivery O2 Flow Rate FiO2 02/19/17 07:44 36.9 106 18 141/95 (110) 95 Room Air 02/19/17 04:00 Room Air 02/19/17 03:40 37.0 92 18 114/70 (85) 94 Room Air 02/19/17 02:00 36.9 84 18 132/76 96 Room Air 02/19/17 01:53 82 18 127/84 98 Room Air 02/19/17 01:05 82 02/18/17 23:34 98 Room Air 02/18/17 23:32 83 18 114/62 98 Room Air 02/18/17 22:00 36.9 96 18 126/88 96 Room Air 02/18/17 21:50 94 Physical Exam General Appearance: WD/WN, + mild distress Neck: supple, no JVD Respiratory/Chest: chest non-tender, lungs clear, normal breath sounds Cardiovascular: regular rate, rhythm, no murmur Abdomen: normal bowel sounds, non tender, soft Extremities: no pedal edema, no calf tenderness Neurologic/Psychiatric: alert, + pertinent finding (fatigued) Laboratory Results Last 24 Hours Test 02/18/17 21:55 02/18/17 22:12 02/18/17 23:17 02/19/17 03:07 Urine Opiates Screen POS Urine Methadone, Qualitative NEG Urine Barbiturates NEG Urine Phencyclidine (PCP) Level NEG Ur Amphetamine/Methamphetamine NEG MDMA (Ecstasy) Screen NEG Urine Benzodiazepines Screen NEG Urine Cocaine Metabolite NEG Urine Marijuana (THC) NEG White Blood Count 11.73 K/uL Red Blood Count 4.25 M/uL Hemoglobin 12.1 g/dL Hematocrit 36.8 % Mean Corpuscular Volume 86.6 fL Mean Corpuscular Hemoglobin 28.5 pg Mean Corpuscular Hemoglobin Concent 32.9 g/dl Platelet Count 397 K/uL Mean Platelet Volume 9.9 fL Neutrophils (%) (Auto) 55.8 % Lymphocytes (%) (Auto) 26.1 % Monocytes (%) (Auto) 8.3 % Eosinophils (%) (Auto) 8.4 % Basophils (%) (Auto) 1.1 % Neutrophils # (Auto) 6.54 K/uL Lymphocytes # (Auto) 3.06 K/uL Monocytes # (Auto) 0.97 K/uL Eosinophils # (Auto) 0.99 K/uL Basophils # (Auto) 0.13 K/uL RDW Standard Deviation 45.7 fL RDW Coefficient of Variation 14.6 % Immature Granulocyte % (Auto) 0.3 % Immature Granulocyte # (Auto) 0.04 K/uL Prothrombin Time 10.0 SECONDS Prothromb Time International Ratio 0.9 Activated Partial Thromboplast Time 22.6 SECONDS Partial Thromboplastin Ratio 0.9 Sodium Level 140 mmol/L 141 mmol/L Potassium Level mmol/L 3.2 mmol/L 3.1 mmol/L Chloride Level 107 mmol/L 107 mmol/L Carbon Dioxide Level 27 mmol/L 25 mmol/L Anion Gap 6.0 mmol/L 9.0 mmol/L Blood Urea Nitrogen 10 mg/dl 9 mg/dl Creatinine 0.82 mg/dl 0.71 mg/dl Estimated GFR () 91.4 108.8 Estimated GFR (Non- 78.9 93.9 BUN/Creatinine Ratio 12.0 12.4 Random Glucose 148 mg/dl 119 mg/dl Estimated Average Glucose 166 mg/dl Hemoglobin A1c 7.4 % Calcium Level 8.2 mg/dl 8.2 mg/dl Troponin I < 0.015 ng/ml < 0.015 ng/ml Est Creatinine Clear Calc Drug Dose 99.9 ml/min Test 02/19/17 06:26 Bedside Glucose 110 mg/dl Assessment and Plan 56 y/o F who presents with Dysphasia that has resolved concerning toxic encephalopathy from medication ingestion TIA/CVA this is been disproven Head CT negative With history of drug use per daughter, would be cautious with any sedating medication carotid u/s negative Echo recently performed in December and negative neuro eval does not feel consistent with acute stroke Continue on plavix and rosuvastatin Asthma stable on Albuterol CAD, h/o [place] at aspirin but continue Plavix, Rosuvastatin Pain/neuropathy Soma cautiously as well as oxycodone 30 cautiously DM Diet-controlled DVT:Lovenox Code:Full
[2017-02-21 13:41] LABS: COD UR NEGATIVE NG/ML (CUTOFF=50); HYDROCOD UR NEGATIVE NG/ML (CUTOFF=50); HYDROMOR UR NEGATIVE NG/ML (CUTOFF=50); MORPHINE UR NEGATIVE NG/ML (CUTOFF=50); NORHYDROCODONE CONF UR NEGATIVE NG/ML (CUTOFF=50); OXYMORPH UR 431 NG/ML (CUTOFF=50)
== END 2017-02-20 12:27 | disposition home or self-care (01) ==
LOC: EDBD 21:35 → C.EDC 21:39 → C.2E 02-19 01:14 → ENRESERV 02-19 01:27
PROVIDERS: ADMIT Internal Medicine; ATTEND Internal Medicine
DX: R47.1 Dysarthria and anarthria (principal); E87.6 Hypokalemia; I25.10 Atherosclerotic heart disease of native coronary artery without angina pectoris; I25.2 Old myocardial infarction; E78.5 Hyperlipidemia, unspecified; I10 Essential (primary) hypertension; E11.9 Type 2 diabetes mellitus without complications; J45.909 Unspecified asthma, uncomplicated; K21.9 Gastro-esophageal reflux disease without esophagitis; E03.9 Hypothyroidism, unspecified; G89.29 Other chronic pain; M54.5 Low back pain; M81.0 Age-related osteoporosis without current pathological fracture; M17.10 Unilateral primary osteoarthritis, unspecified knee; F41.9 Anxiety disorder, unspecified; F32.9 Major depressive disorder, single episode, unspecified; E66.01 Morbid (severe) obesity due to excess calories; Z86.14 Personal history of Methicillin resistant Staphylococcus aureus infection; Z91.81 History of falling; Z86.711 Personal history of pulmonary embolism; Z86.718 Personal history of other venous thrombosis and embolism; Z87.891 Personal history of nicotine dependence; Z79.02 Long term (current) use of antithrombotics/antiplatelets; Z79.899 Other long term (current) drug therapy

== ENCOUNTER → 2017-03-24 | Outpatient (CLI) | payer OTHER ==
[~2017-03-24] MED LIST changes: +AMT25 PO; +CARI350T28 PO; +DIPH25CA50 PO; +METH4PAK PO; +VANC1INJ94 IV
--- NOTE | 2017-03-24 11:58 | DIAGNOSTIC IMAGING REPORT ---
L RIBS UNILATERAL MIN 2 VIEWS, CHEST 2 VIEWS ROUTINE HISTORY: 56 years-old Female R07.9 CHEST PAIN acute atypical chest pain, most pronounced in the left. COMPARISON: Acute abdominal series radiographs 09/03/2016 TECHNIQUE: 4 views of the left ribs with PA and lateral views of the chest FINDINGS: Cardiomediastinal and hilar silhouettes are within normal limits. Atherosclerosis of the aorta. Previous noted PICC has been removed. No pneumothorax, pleural effusion, focal airspace consolidation or overt pulmonary edema. Degenerative changes are seen within the spine and shoulders. Surgical clips project over the left upper abdomen. Bones of the chest appear intact. No acute rib fracture identified. IMPRESSION: 1. No acute cardiopulmonary process. 2. No acute rib fracture identified. No pneumothorax. The above report was generated using voice recognition software. It may contain grammatical, syntax or spelling errors. Electronically signed by: Manoj Staley M.D. 03/24/2017 11:57 AM Dictated Date/Time: 03/24/2017 11:55 AM
== END | disposition home or self-care (01) ==
LOC: C.RAD1850 11:23
PROVIDERS: ATTEND Student in an Organized Health Care Education/Training Program
DX: R07.9 Chest pain, unspecified (principal)

== ENCOUNTER 2017-05-03 14:46 | Emergency (ER) | payer OTHER ==
[~2017-05-03] VITALS: Ht 154.9 cm; Wt 109.6 kg
[~2017-05-03 14:46] MED LIST changes: -ACET1CAP19 PO; -AMIT50TA3 PO; -DIPH25CA50 PO; -LORA10TA5 PO; -METH4PAK PO; -OXYC1TAB PO; -VANC1INJ94 IV
[2017-05-03 14:49] VITALS: TEMP 37.2; Ht 154.9 cm; Wt 109.6 kg
[2017-05-03] MEDS ORDERED: SODIUM CHLORIDE 0.9% 500ML 500 ML IV STA (15:00)
[2017-05-03] MEDS ORDERED: ALBUT/IPRATROP 3MG/0.5MG NEB 3 ML VIAL INH ONE (15:00)
--- NOTE | 2017-05-03 15:29 | EMERGENCY ROOM VISIT NOTE ---
History First contact with patient: 14:52 Chief Complaint: RESPIRATORY PROBLEMS Stated Complaint: DIFFICULTY BREATHING, ASTHMA Nursing Triage Summary: cough and congestion since last night. history of asthma. shortness of breath started today increased inhaler use the past couple days History of Present Illness The patient is a 56 year old female who presents to the Emergency Room with complaints of shortness of breath and wheezing that started last night. She states she has had cough and nasal congestion for the past 2 days. She reports a history of asthma, is on Singulair and Advair for management, as well as albuterol as needed. She states she has been using her albuterol inhaler more than usual the past 2 days, especially at night she has been waking up with increased wheezing and shortness of breath. Today she felt very short of breath with any exertion, and also noticed increased fatigue. She has had some chills but no fevers, her cough has been productive of green mucus. She denies any chest pain, dizziness or syncope, headaches or neck pain or stiffness, back pain, abdominal pain, nausea or vomiting, diarrhea, urinary symptoms, or rash. She reports several previous hospital admissions for asthma in the past, but states she has not had any significant issues with her asthma for over a year. She reports a history of a heart attack, she states "they told me it was stress- induced and that I did not have any blockages." Review of Systems A complete 10 point review of systems was reviewed with the patient with pertinent positives and negatives as per history of present illness. All else were negative. Past Medical/Surgical History Medical Problems: (1) Abdominal pain (2) ACS (acute coronary syndrome) (3) Acute renal failure (4) ELIO (acute kidney injury) (5) Anxiety State Nos (6) Asthma (7) Asthma (8) Back pain (9) Back pain (10) CHI (closed head injury) (11) Contusion of multiple sites (12) Contusion of multiple sites (13) Contusion of third finger, right (14) Degenerative arthritis of knee (15) Dehydration (16) Depressive Disorder Nec (17) Diab Niyah Wo Compl, Type Ii Or Unspec Type, Not Uncntrld (18) Esophageal Reflux (19) Fall (20) Fall due to slipping on ice or snow (21) Foot pain (22) Hx-Venous Thrombosis&Embolism (23) Hyperlipidemia Nec/Nos (24) Hypertension (25) Hypotension (26) Hypotension (27) Hypothyroidism Nos (28) Knee contusion (29) Left wrist pain (30) Leukocytosis (31) Lumbar Disc Displacement (32) Lumbar strain (33) Lumbosacral Neuritis Nos (34) Morbid Obesity (35) Nausea and vomiting (36) Nausea, vomiting, and diarrhea (37) Osteoporosis Nos (38) Positive blood culture (39) Post concussion syndrome (40) Right flank pain (41) Sepsis (42) SIRS (systemic inflammatory response syndrome) (43) Splenosis (44) UTI (urinary tract infection) Surgical Problems: (1) Hx of appendectomy (2) Hx of hernia repair Family History Asthma Diabetes mellitus FHx: cancer (skin) FHx: heart failure Gallbladder disease Heart disease Hypertension Kidney stones Social History Smoking Status: Former Smoker Alcohol Use: none Drug Use: none Marital Status: single Housing Status: lives with family Occupation Status: unemployed Current/Historical Medications Scheduled Amitriptyline HCl (Amitriptyline HCl), 25 MG PO HS Carisoprodol (Soma), 1 TAB PO UD Clopidogrel (Plavix), 75 MG PO DAILY Fluoxetine (Prozac), 40 MG PO HS Fluticasone Prop/Salmeterol (Advair Diskus 500/50 60 Dose), 1 PUFF INH BID Gabapentin (Neurontin), 800 MG PO TID Levothyroxine Sodium (Synthroid), 150 MCG PO QAM Metoprolol Succinate (Metoprolol Succinate ER), 100 MG PO DAILY Montelukast Sodium (Singulair), 10 MG PO QAM Omeprazole (Prilosec), 40 MG PO QAM Prednisone (Prednisone Tab), 3 TAB PO DAILY Rosuvastatin Calcium (Crestor), 20 MG PO DAILY Scheduled PRN Albuterol Hfa (Ventolin Hfa), 2 PUFFS INH QID PRN for Wheezing Albuterol Sulf (Albuterol Sulfate), 1 DOSE NEB Q4 PRN for Wheezing Nitroglycerin (Nitrostat), 0.4 MG UT PRN PRN for chest pain Allergies Reviewed in chart Physical Exam Vital Signs Date Time Temp Pulse Resp B/P (MAP) Pulse Ox O2 Delivery O2 Flow Rate FiO2 05/03/17 19:52 106 20 114/76 96 Room Air 05/03/17 18:45 84 18 113/77 94 Room Air 05/03/17 17:03 89 18 119/85 96 Room Air 05/03/17 15:52 72 20 147/93 100 Nebulizer 05/03/17 15:50 Room Air 05/03/17 15:38 74 05/03/17 15:36 73 18 97 Room Air 05/03/17 15:33 95 Room Air 05/03/17 14:52 94 Room Air 05/03/17 14:49 37.2 89 20 125/73 94 Room Air Physical Exam CONSTITUTIONAL: Pleasant and cooperative. No acute distress. Dehydrated. HEENT: Normocephalic, atraumatic. Pupils equal, round and reactive to light, EOMI. TMs normal. Pharynx normal. Dry mucous membranes. NECK: Supple, full active range of motion without discomfort. RESPIRATORY: Mildly tachypneic, but speaking in full sentences, no accessory muscle use. Diffuse moderate inspiratory and expiratory wheezes throughout on auscultation, slightly diminished in the bases. No rhonchi or crackles heard. Equal expansion bilaterally. CARDIOVASCULAR: Regular rate and rhythm with no murmurs, rubs or gallops. Normal peripheral perfusion. No edema. GASTROINTESTINAL: Soft, nontender, nondistended, obese. No palpable masses or HSM. Bowel sounds present in all quadrants. MUSCULOSKELETAL: Full range of motion of all joints without discomfort. INTEGUMENTARY: No rash or other significant dermatologic conditions noted. NEUROLOGIC: Alert and oriented X 4 with normal affect. No focal neurologic deficits noted. Normal speech. Normal gait observed. Medical Decision & Procedures ER Provider Diagnostic Interpretation: CHEST 2 VIEWS ROUTINE CLINICAL HISTORY: Shortness of breath. Respiratory distress. COMPARISON STUDY: 03/24/2017 FINDINGS: The cardiac and mediastinal contours are normal. There is no evidence of focal pulmonary consolidation. There is no evidence of failure. No pleural effusions are visualized. IMPRESSION: No active disease in the chest. Laboratory Results 05/03/17 16:05 Red Blood Count 4.57, Mean Corpuscular Volume 86.9, Mean Corpuscular Hemoglobin 28.2, Mean Corpuscular Hemoglobin Concent 32.5, Mean Platelet Volume 9.9, Neutrophils (%) (Auto) 58.4, Lymphocytes (%) (Auto) 24.9, Monocytes (%) (Auto) 8.3, Eosinophils (%) (Auto) 7.6, Basophils (%) (Auto) 0.7, Neutrophils # (Auto) 8.56, Lymphocytes # (Auto) 3.65, Monocytes # (Auto) 1.22, Eosinophils # (Auto) 1.12, Basophils # (Auto) 0.11 05/03/17 16:27 Test 05/03/17 16:05 05/03/17 16:27 05/03/17 17:50 White Blood Count 14.68 K/uL (4.8-10.8) Red Blood Count 4.57 M/uL (4.2-5.4) Hemoglobin 12.9 g/dL (12.0-16.0) Hematocrit 39.7 % (37-47) Mean Corpuscular Volume 86.9 fL (80-100) Mean Corpuscular Hemoglobin 28.2 pg (25-34) Mean Corpuscular Hemoglobin Concent 32.5 g/dl (32-36) Platelet Count 392 K/uL (130-400) Mean Platelet Volume 9.9 fL (7.4-10.4) Neutrophils (%) (Auto) 58.4 % Lymphocytes (%) (Auto) 24.9 % Monocytes (%) (Auto) 8.3 % Eosinophils (%) (Auto) 7.6 % Basophils (%) (Auto) 0.7 % Neutrophils # (Auto) 8.56 K/uL (1.4-6.5) Lymphocytes # (Auto) 3.65 K/uL (1.2-3.4) Monocytes # (Auto) 1.22 K/uL (0.11-0.59) Eosinophils # (Auto) 1.12 K/uL (0-0.5) Basophils # (Auto) 0.11 K/uL (0-0.2) RDW Standard Deviation 44.9 fL (36.4-46.3) RDW Coefficient of Variation 14.3 % (11.5-14.5) Immature Granulocyte % (Auto) 0.1 % Immature Granulocyte # (Auto) 0.02 K/uL (0.00-0.02) Anion Gap 8.0 mmol/L (3-11) Est Creatinine Clear Calc Drug Dose 83.5 ml/min Estimated GFR () 88.8 Estimated GFR (Non- 76.6 BUN/Creatinine Ratio 13.6 (10-20) Calcium Level 8.1 mg/dl (8.5-10.1) Total Bilirubin 0.4 mg/dl (0.2-1) Aspartate Amino Transf (AST/SGOT) 40 U/L (15-37) Alanine Aminotransferase (ALT/SGPT) 36 U/L (12-78) Alkaline Phosphatase 118 U/L (45-117) Troponin I < 0.015 ng/ml (0-0.045) Total Protein 6.9 gm/dl (6.4-8.2) Albumin 3.2 gm/dl (3.4-5.0) Globulin 3.7 gm/dl (2.5-4.0) Albumin/Globulin Ratio 0.9 (0.9-2) Chemistry Specimen Hemolysis Urine Color YELLOW Urine Appearance CLEAR (CLEAR) Urine pH 5.5 (4.5-7.5) Urine Specific [place] 1.011 (1.000-1.030) Urine Protein NEG (NEG) Urine Glucose (UA) NEG (NEG) Urine Ketones NEG (NEG) Urine Occult Blood NEG (NEG) Urine Nitrite NEG (NEG) Urine Bilirubin NEG (NEG) Urine Urobilinogen NEG (NEG) Urine Leukocyte Esterase NEG (NEG) Medications Administered Medications (Trade) Dose Ordered Sig/Sid Route Start Time Stop Time Status Last Admin Dose Admin Albuterol/ Ipratropium (Duoneb) 12 ml ONE ONCE INH 05/03/17 15:00 05/03/17 15:05 DC 05/03/17 15:36 12 ML Sodium Chloride 500 ml @ 999 mls/hr Q31M STAT IV 05/03/17 15:00 05/03/17 15:30 DC 05/03/17 15:00 999 MLS/HR Prednisone (PredniSONE TAB) 60 mg NOW STAT PO 05/03/17 19:21 05/03/17 19:22 DC 05/03/17 19:46 60 MG ECG Indication: SOB/dyspnea Rate (beats per minute): 77 Rhythm: normal sinus Findings: no acute ischemic change, left axis deviation, no ectopy Change: no significant change (when compared to EKG from 02/18/2017) Medical Decision CC: Patient presenting with complaint of shortness of breath and wheezing, cough Interpretation of Labs: Leukocytosis, no anemia, no significant electrolyte abnormalities, normal renal function, no significant abnormalities noted on liver function tests. Negative troponin. UA negative. Differential Diagnosis: Includes, but not limited to asthma exacerbation, COPD exacerbation, viral URI, bronchitis, pneumonia, pleural effusion, ACS, CHF, among others. Medication Reconciliation: I attest that I have personally reviewed the patient' s current medication list. Vital signs review: I reviewed the patient's vital signs and interpret them as follows: T: Afebrile; BP: Normotensive; HR: Within normal limits; RR: Within normal limits; Pulse Ox: Within normal limits on room air. Blood pressure screening: The patient was found to have normal blood pressure on screening and does not require follow-up for repeat blood pressure check. Summary: Patient was evaluated at bedside, history and physical exam performed. Patient is alert and oriented, no acute distress, mildly tachypneic but speaking in full sentences, resting calmly in the stretcher. Diffuse inspiratory and expiratory wheezing throughout and lungs are diminished. Orders were placed at bedside for labs, UA, IV fluid for hydration, hour-long DuoNeb, EKG, chest x-ray to evaluate for cardiopulmonary disease. PO prednisone ordered for suspected asthma exacerbation. Patient discussed with Dr. Gregory, who agrees with my assessment and plan. Labs reviewed as above, noting some leukocytosis, otherwise unremarkable. EKG shows no acute ischemia, appears unchanged from previous EKG. Chest x-ray showed no acute abnormalities. Patient reassessed multiple times throughout ED stay, she appears much improved , and states she feels much better compared to when she came in. Reassessment of the lungs reveals improvement in wheezing, moving air better and no longer diminished in the bases. Ambulatory sats 96% and patient no longer short of breath with exertion. Patient noted to be slightly tachycardic at time of discharge, this was felt to be secondary to the hour-long neb treatment. I discussed all results with the patient and plan for discharge home, encouraging her to follow closely with her PCP. Rx for prednisone sent to pharmacy. Patient was also given strict return precautions should her symptoms worsen. Patient verbalized understanding of all discharge instructions and was comfortable with this plan. Patient was discharged home in stable condition and ambulatory. Medication Reconcilliation Current Medication List: was personally reviewed by me Blood Pressure Screening Patient's blood pressure: Normal blood pressure Impression Primary Impression: Asthma exacerbation Departure Information Dispostion Home / Self-Care Condition GOOD Prescriptions Prednisone (Prednisone Tab) 20 Mg Tab 3 TAB PO DAILY for 4 Days, #12 TAB FOR 4 DAYS Prov: NonaJaz CRNP 05/03/17 Referrals No Doctor, Assigned (PCP) Patient Instructions ED Bronchitis Asthmatic, My [facility] Additional Instructions You have been evaluated in the emergency department for your cough and wheezing. There is no evidence of pneumonia on your chest x-ray. You have been prescribed Prednisone (steroid) to be taken daily for the next FOUR days. This medication is to help reduce inflammation in your lungs that is causing your wheezing. Use your albuterol inhaler TWO puffs every 4 hours as needed for cough, wheezing , chest tightness. You should also use this before bed to help prevent coughing so that you can sleep better at night. Drink plenty of fluids to stay well hydrated. Please follow-up with your PCP in 2-3 days to be rechecked. Please return to the emergency department if your symptoms worsen, including worsening shortness of breath or wheezing, chest pain, coughing up blood, dizziness or passing out, fevers >101.5, or any other concerns. Work Instructions Return To Work: 2 days Problem Qualifiers Primary Impression: Asthma exacerbation Asthma severity: unspecified severity Asthma persistence: unspecified Qualified Codes: J45.901 - Unspecified asthma with (acute) exacerbation
[2017-05-03 15:33] VITALS: O2SAT 95
[2017-05-03 15:36] VITALS: PULSE 73; O2SAT 97
--- NOTE | 2017-05-03 15:38 | DIAGNOSTIC IMAGING REPORT ---
CHEST 2 VIEWS ROUTINE CLINICAL HISTORY: Shortness of breath. Respiratory distress. COMPARISON STUDY: 03/24/2017 FINDINGS: The cardiac and mediastinal contours are normal. There is no evidence of focal pulmonary consolidation. There is no evidence of failure. No pleural effusions are visualized.[ IMPRESSION: No active disease in the chest. Electronically signed by: Dhaval Guevara M.D. 05/03/2017 3:36 PM Dictated Date/Time: 05/03/2017 3:36 PM
[2017-05-03 16:38] LABS: BASO % 0.7 %; BASO ABS # 0.11 K/uL (0-0.2); EOS % 7.6 %; EOS ABS # 1.12 K/uL (0-0.5); HEMATOCRIT 39.7 % (37-47); HEMOGLOBIN 12.9 g/dL (12.0-16.0); IG# 0.02 K/uL (0.00-0.02); LYMPH % 24.9 %; LYMPH ABS # 3.65 K/uL (1.2-3.4); MEAN CELL VOLUME 86.9 fL (80-100); MEAN CORPUSCULAR HEMOGLOBIN 28.2 pg (25-34); MEAN CORPUSCULAR HGB CONC 32.5 g/dl (32-36); MEAN PLATELET VOLUME 9.9 fL (7.4-10.4); MONO % 8.3 %; MONO ABS # 1.22 K/uL (0.11-0.59); NEUT % 58.4 %; NEUT ABS # 8.56 K/uL (1.4-6.5); PLATELET COUNT 392 K/uL (130-400); RED CELL DISTRIBUTION WIDTH CV 14.3 % (11.5-14.5); RED CELL DISTRIBUTION WIDTH SD 44.9 fL (36.4-46.3); WHITE BLOOD COUNT 14.68 K/uL (4.8-10.8)
[2017-05-03 17:00] LABS: ALBUMIN 3.2 gm/dl (3.4-5.0); ALT/SGPT 36 U/L (12-78); BLOOD UREA NITROGEN 11 mg/dl (7-18); CALCIUM 8.1 mg/dl (8.5-10.1); CARBON DIOXIDE 26 mmol/L (21-32); CREATININE 0.84 mg/dl (0.60-1.20); GLUCOSE 142 mg/dl (70-99); POTASSIUM 4.4 mmol/L (3.5-5.1); SODIUM 136 mmol/L (136-145)
[2017-05-03 17:05] LABS: ALKALINE PHOSPHATASE 118 U/L (45-117); AST/SGOT 40 U/L (15-37); TOTAL PROTEIN 6.9 gm/dl (6.4-8.2)
[2017-05-03] MEDS ORDERED: PRED20TA2 PO (19:30)
[2017-05-03 19:52] VITALS: BP 114/76; PULSE 106; O2SAT 96
== END 2017-05-03 20:07 | disposition home or self-care (01) ==
LOC: C.EDB 14:47 → C.EDA 20:07
DX: J45.901 Unspecified asthma with (acute) exacerbation (principal); I10 Essential (primary) hypertension; E11.9 Type 2 diabetes mellitus without complications; K21.9 Gastro-esophageal reflux disease without esophagitis; E78.5 Hyperlipidemia, unspecified; E03.9 Hypothyroidism, unspecified; M81.0 Age-related osteoporosis without current pathological fracture; F32.9 Major depressive disorder, single episode, unspecified; F41.9 Anxiety disorder, unspecified; Z86.718 Personal history of other venous thrombosis and embolism; Z87.820 Personal history of traumatic brain injury; Z87.828 Personal history of other (healed) physical injury and trauma; Z87.440 Personal history of urinary (tract) infections; Z98.890 Other specified postprocedural states; Z87.891 Personal history of nicotine dependence; Z79.899 Other long term (current) drug therapy; Z83.3 Family history of diabetes mellitus; Z80.9 Family history of malignant neoplasm, unspecified; Z82.49 Family history of ischemic heart disease and other diseases of the circulatory system; Z83.79 Family history of other diseases of the digestive system; Z84.1 Family history of disorders of kidney and ureter

== ENCOUNTER 2017-05-18 22:16 | Emergency (ER) | payer OTHER ==
[~2017-05-18] VITALS: Ht 154.9 cm; Wt 105.0 kg
[~2017-05-18 22:16] MED LIST changes: -CLOP1TAB15 PO; -NTRGSL/4 UT; -ROSU20TA PO
[2017-05-18 22:21] VITALS: TEMP 36.7; Ht 154.9 cm; Wt 105.0 kg
[2017-05-18] MEDS ORDERED: SODIUM CHLORIDE 0.9% 500ML 500 ML IV STA (22:30)
[2017-05-18] MEDS ORDERED: ALBUT/IPRATROP 3MG/0.5MG NEB 3 ML VIAL INH STA (22:41)
[2017-05-18 22:45] VITALS: O2SAT 91
[2017-05-18] MEDS ORDERED: ROSU20TA PO (22:58)
[2017-05-18] MEDS ORDERED: CYCL10TA6 PO (23:00)
--- NOTE | 2017-05-18 23:06 | DIAGNOSTIC IMAGING REPORT ---
CHEST ONE VIEW PORTABLE HISTORY: 56 years-old Female CHEST PAIN acute atypical chest pain COMPARISON: Chest radiographs 05/03/2017 TECHNIQUE: Portable AP view of the chest FINDINGS: Cardiac silhouette is moderately enlarged, unchanged. No pneumothorax, pleural effusion or overt pulmonary edema. Linear subsegmental opacities of the medial right lung base suggest atelectasis or scarring. Bones of the chest appear grossly intact. IMPRESSION: No acute process. The above report was generated using voice recognition software. It may contain grammatical, syntax or spelling errors. Electronically signed by: Manoj Staley M.D. 05/18/2017 11:05 PM Dictated Date/Time: 05/18/2017 11:04 PM
[2017-05-18] MEDS ORDERED: CLOP1TAB15 PO (23:28)
[2017-05-18] MEDS ORDERED: NTRGSL/4 UT (23:32)
[2017-05-19] MEDS ORDERED: ONDANSETRON INJ 2 MG/ML 2 ML VIAL ONE (00:15)
[2017-05-19 00:32] LABS: ALBUMIN 4.1 gm/dl (3.4-5.0); ALT/SGPT 25 U/L (12-78); AST/SGOT 27 U/L (15-37); BLOOD UREA NITROGEN 23 mg/dl (7-18); CALCIUM 9.3 mg/dl (8.5-10.1); CARBON DIOXIDE 21 mmol/L (21-32); CREATININE 1.55 mg/dl (0.60-1.20); GLUCOSE 128 mg/dl (70-99); LIPASE 130 U/L (73-393); POTASSIUM 3.8 mmol/L (3.5-5.1); SODIUM 136 mmol/L (136-145)
[2017-05-19] MEDS ORDERED: OXYCODONE HCL 20 MG TABCR (OXYCONTIN) PO STA ×2 (00:34)
[2017-05-19 00:35] LABS: ALKALINE PHOSPHATASE 122 U/L (45-117); TOTAL PROTEIN 8.2 gm/dl (6.4-8.2)
[2017-05-19] MEDS ORDERED: SODIUM CHLORIDE 0.9% 500ML 500 ML IV STA (00:46)
[2017-05-19 00:59] LABS: EOS % 4.6 %; EOS ABS # 0.92 K/uL (0-0.5); HEMATOCRIT 42.4 % (37-47); HEMOGLOBIN 13.8 g/dL (12.0-16.0); IG# 0.08 K/uL (0.00-0.02); LYMPH ABS # 4.18 K/uL (1.2-3.4); MEAN CELL VOLUME 86.4 fL (80-100); MEAN CORPUSCULAR HEMOGLOBIN 28.1 pg (25-34); MEAN CORPUSCULAR HGB CONC 32.5 g/dl (32-36); MEAN PLATELET VOLUME 10.1 fL (7.4-10.4); MONO ABS # 1.59 K/uL (0.11-0.59); NEUT ABS # 12.93 K/uL (1.4-6.5); PLATELET COUNT 439 K/uL (130-400); RED CELL DISTRIBUTION WIDTH CV 14.1 % (11.5-14.5); RED CELL DISTRIBUTION WIDTH SD 44.3 fL (36.4-46.3)
[2017-05-19] MEDS ORDERED: OPTIRAY 320 IV PRN (01:15)
[2017-05-19] MEDS ORDERED: METOCLOPRAMIDE HCL INJ 5 MG/ML 2 ML VIAL IV STA (01:15)
[2017-05-19] MEDS ORDERED: AZITHROMYCIN 250 MG TAB PO STA (02:33)
--- NOTE | 2017-05-19 03:58 | EMERGENCY ROOM VISIT NOTE ---
History First contact with patient: 22:24 Chief Complaint: CHEST PAIN Stated Complaint: CHEST PAIN, TROUBLE BREATHING, VOMITING-CARDIAC HX History of Present Illness The patient is a 56 year old female who presents to the Emergency Room with complaints of cough, chest pain and difficulty catching her breath with an episode of vomiting that is been intermittent for the past 2 days. The chest pain lasts for a few seconds to a few minutes. It happened a few times today. None currently. This is not exertional. Patient feels like it difficult to take a deep breath. She does have asthma. Patient denies exertional chest pain , fever, chills, congestion, abdominal pain, leg pain or swelling. 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 She had an non-STEMI last year. She does not smoke. She does have high blood pressure cholesterol and diabetes. Review of Systems See HPI for pertinent positives & negatives. A total of 10 systems reviewed and were otherwise negative. Past Medical/Surgical History Medical Problems: (1) Abdominal pain (2) ACS (acute coronary syndrome) (3) Acute renal failure (4) ELIO (acute kidney injury) (5) Anxiety State Nos (6) Asthma (7) Asthma (8) Back pain (9) Back pain (10) CHI (closed head injury) (11) Contusion of multiple sites (12) Contusion of multiple sites (13) Contusion of third finger, right (14) Degenerative arthritis of knee (15) Dehydration (16) Depressive Disorder Nec (17) Diab Niayh Wo Compl, Type Ii Or Unspec Type, Not Uncntrld (18) Esophageal Reflux (19) Fall (20) Fall due to slipping on ice or snow (21) Foot pain (22) Hx-Venous Thrombosis&Embolism (23) Hyperlipidemia Nec/Nos (24) Hypertension (25) Hypotension (26) Hypotension (27) Hypothyroidism Nos (28) Knee contusion (29) Left wrist pain (30) Leukocytosis (31) Lumbar Disc Displacement (32) Lumbar strain (33) Lumbosacral Neuritis Nos (34) Morbid Obesity (35) Nausea and vomiting (36) Nausea, vomiting, and diarrhea (37) Osteoporosis Nos (38) Positive blood culture (39) Post concussion syndrome (40) Right flank pain (41) Sepsis (42) SIRS (systemic inflammatory response syndrome) (43) Splenosis (44) UTI (urinary tract infection) Surgical Problems: (1) Hx of appendectomy (2) Hx of hernia repair Family History Asthma Diabetes mellitus FHx: cancer (skin) FHx: heart failure Gallbladder disease Heart disease Hypertension Kidney stones Social History Smoking Status: Never Smoker Alcohol Use: occasionally Drug Use: none Marital Status: single Housing Status: lives with family Occupation Status: employed Current/Historical Medications Scheduled Clopidogrel (Plavix), 75 MG PO DAILY Cyclobenzaprine Hcl (Flexeril), 10 MG PO PRN UD Fluoxetine (Prozac), 40 MG PO HS Fluticasone Prop/Salmeterol (Advair Diskus 500/50 60 Dose), 1 PUFF INH BID Gabapentin (Neurontin), 800 MG PO QID Levothyroxine Sodium (Synthroid), 150 MCG PO QAM Metoprolol Succinate (Metoprolol Succinate ER), 100 MG PO DAILY Montelukast Sodium (Singulair), 10 MG PO QAM Omeprazole (Prilosec), 40 MG PO QAM Rosuvastatin Calcium (Crestor), 20 MG PO DAILY Scheduled PRN Albuterol Hfa (Ventolin Hfa), 2 PUFFS INH QID PRN for Wheezing Albuterol Sulf (Albuterol Sulfate), 1 DOSE NEB Q4 PRN for Wheezing Nitroglycerin (Nitrostat), 0.4 MG UT PRN PRN for chest pain Physical Exam Vital Signs Date Time Temp Pulse Resp B/P (MAP) Pulse Ox O2 Delivery O2 Flow Rate FiO2 05/19/17 03:04 90 21 135/88 94 Room Air 05/19/17 02:04 96 05/19/17 01:23 100 20 168/97 94 Room Air 05/18/17 22:45 91 Room Air 05/18/17 22:45 91 Room Air 05/18/17 22:41 Room Air 05/18/17 22:37 89 05/18/17 22:21 36.7 99 16 138/85 93 Room Air Physical Exam VITALS: Vitals are noted on the nurse's note and reviewed by myself. Vital signs stable. GENERAL: Pleasant female, in no acute distress, nondiaphoretic, well-developed well-nourished. SKIN: The skin was without rashes, erythema, edema, or bruising. There is no tenting of the skin. Capillary reflex less than 2 seconds. HEAD: Normocephalic atraumatic. EARS: External auditory canals clear, tympanic membranes pearly rose without erythema or effusion bilaterally. EYES: Pupils equal round and reactive to light and accommodation. Conjunctivae without injection, sclerae without icterus. Extraocular movements intact. NOSE: Patent, turbinates without inflammation or discharge. MOUTH: Mucous membranes mildly dry. Pharynx without erythema or exudate. Uvula midline. Airway patent. Tongue does not deviate. NECK: Supple without nuchal rigidity. No lymphadenopathy. No thyromegaly. Cervical spine is nontender. No JVD. HEART: Regular rate and rhythm LUNGS: Mild diffuse end expiratory wheezes, without rales or rhonchi. No retractions or accessory muscle use. ABDOMEN: Positive bowel sounds x 4. Normal tympanic percussion. Soft, nontender, without masses or organomegaly. Méndez sign negative. No guarding or rebound tenderness. MUSCULOSKELETAL: No muscle atrophy, erythema, or edema noted. NEURO: Patient was alert and oriented to person place and time. Normal sensation to light and sharp touch. No focal neurological deficits. Medical Decision & Procedures Laboratory Results 05/19/17 00:00 Red Blood Count 4.91, Mean Corpuscular Volume 86.4, Mean Corpuscular Hemoglobin 28.1, Mean Corpuscular Hemoglobin Concent 32.5, Mean Platelet Volume 10.1, Neutrophils (%) (Auto) 65.0, Lymphocytes (%) (Auto) 21.0, Monocytes (%) (Auto) 8.0, Eosinophils (%) (Auto) 4.6, Basophils (%) (Auto) 1.0, Neutrophils # (Auto) 12.93, Lymphocytes # (Auto) 4.18, Monocytes # (Auto) 1.59, Eosinophils # (Auto) 0.92, Basophils # (Auto) 0.20 05/19/17 00:00 Test 05/19/17 00:00 05/19/17 00:32 05/19/17 03:28 White Blood Count 19.90 K/uL (4.8-10.8) Red Blood Count 4.91 M/uL (4.2-5.4) Hemoglobin 13.8 g/dL (12.0-16.0) Hematocrit 42.4 % (37-47) Mean Corpuscular Volume 86.4 fL (80-100) Mean Corpuscular Hemoglobin 28.1 pg (25-34) Mean Corpuscular Hemoglobin Concent 32.5 g/dl (32-36) Platelet Count 439 K/uL (130-400) Mean Platelet Volume 10.1 fL (7.4-10.4) Neutrophils (%) (Auto) 65.0 % Lymphocytes (%) (Auto) 21.0 % Monocytes (%) (Auto) 8.0 % Eosinophils (%) (Auto) 4.6 % Basophils (%) (Auto) 1.0 % Neutrophils # (Auto) 12.93 K/uL (1.4-6.5) Lymphocytes # (Auto) 4.18 K/uL (1.2-3.4) Monocytes # (Auto) 1.59 K/uL (0.11-0.59) Eosinophils # (Auto) 0.92 K/uL (0-0.5) Basophils # (Auto) 0.20 K/uL (0-0.2) RDW Standard Deviation 44.3 fL (36.4-46.3) RDW Coefficient of Variation 14.1 % (11.5-14.5) Immature Granulocyte % (Auto) 0.4 % Immature Granulocyte # (Auto) 0.08 K/uL (0.00-0.02) Platelet Estimate INCREASED Anion Gap 12.0 mmol/L (3-11) Est Creatinine Clear Calc Drug Dose 44.1 ml/min Estimated GFR () 42.3 Estimated GFR (Non- 36.5 BUN/Creatinine Ratio 14.7 (10-20) Calcium Level 9.3 mg/dl (8.5-10.1) Total Bilirubin 0.3 mg/dl (0.2-1) Direct Bilirubin < 0.1 mg/dl (0-0.2) Aspartate Amino Transf (AST/SGOT) 27 U/L (15-37) Alanine Aminotransferase (ALT/SGPT) 25 U/L (12-78) Alkaline Phosphatase 122 U/L (45-117) Troponin I < 0.015 ng/ml (0-0.045) Total Protein 8.2 gm/dl (6.4-8.2) Albumin 4.1 gm/dl (3.4-5.0) Lipase 130 U/L (73-393) Bedside D-Dimer > 450 ng/mlFEU (0-450) Bedside Troponin I < 0.030 ng/ml (0-0.045) Medications Administered Medications (Trade) Dose Ordered Sig/Sid Route Start Time Stop Time Status Last Admin Dose Admin Sodium Chloride 500 ml @ 999 mls/hr Q31M STAT IV 05/18/17 22:30 05/18/17 23:00 DC 05/19/17 00:34 999 MLS/HR Albuterol/ Ipratropium (Duoneb) 3 ml NOW STAT INH 05/18/17 22:41 05/18/17 22:42 DC 05/18/17 23:26 3 ML Ondansetron HCl (Zofran Inj) 4 mg STK-MED ONCE .ROUTE 05/19/17 00:15 05/19/17 00:16 DC 05/19/17 00:50 4 MG Sodium Chloride 500 ml @ 999 mls/hr Q31M STAT IV 05/19/17 00:46 05/19/17 01:16 DC 05/19/17 00:50 999 MLS/HR Oxycodone HCl (Oxycontin Tab) 20 mg NOW STAT PO 05/19/17 00:34 05/19/17 00:57 DC 05/19/17 01:14 20 MG Metoclopramide HCl (Reglan Inj) 10 mg NOW STAT IV 05/19/17 01:15 05/19/17 01:16 DC 05/19/17 01:23 10 MG Azithromycin (Zithromax Tab) 500 mg NOW STAT PO 05/19/17 02:33 05/19/17 02:34 DC 05/19/17 03:02 500 MG ED Course Prior records/ancillary studies reviewed. Triage Nursing notes reviewed. Additional history obtained from friend. The patient's history was concerning for chest pain, vomiting and dyspnea. Differential diagnosis: Etiologies such as cardiac ischemia, aortic dissection, pulmonary embolism, pneumonia, pneumothorax, musculoskeletal, infections, pericarditis, myocarditis , esophageal rupture, gastrointestinal, as well as others were entertained. Physical examination: As above. ER treatment provided: Nebulizer On reassessment the patient felt better. Diagnostic interpretation by me: The electrocardiogram was negative for pathologic change. Normal sinus, normal intervals, no acute ST T wave changes. Rate of 93. Impression normal sinus rhythm interpreted by myself The labs revealed 2 troponins that were negative that were greater than 2 hours apart. Elevated d-dimer patient was sent for CTA. Hyperglycemia without DKA Leukocytosis. Patient just finished steroid pack Imaging studies: Chest x-ray as above CTA CHEST: Compared to 08/03/14. No evidence of pulmonary embolism or aortic dissection. Tiny pulmonary nodules. Areas of possible mucus plugging. No consolidation. No pneumothorax or pleural effusion. Radiologist: Mari Patel M.D. Exam and history seem consistent with bronchitis. Patient felt much better after being medicated as above. She had a normal EKG. 2 negative troponins. Negative CTA. She is advised to take medications as directed, rest, stay well- hydrated and to follow-up family care in a few days or here in the ER sooner for chest pain, difficulty breathing, worsening signs or symptoms or as needed. I do not believe is cardiac in etiology. Her chest pain episodes are brief in nature less than a few seconds and were nonexertional. By the evaluation outlined above emergent etiologies such as cardiac ischemia, aortic dissection, pulmonary embolism, pneumonia, pneumothorax, pericarditis, myocarditis, gastrointestinal, as well as others were deemed relatively unlikely. The pt informed about the findings as listed above. All questions were answered and pleased with the treatment. Return instructions were outlined and the patient was discharged in stable condition. Outpatient prescription management: Zithromax Referral: The patient was referred back to primary care physician for follow-up in 2 to 3 days for a recheck of the current condition. Case reviewed with my attending Medical Decision As above Medication Reconcilliation Current Medication List: was personally reviewed by me Blood Pressure Screening Patient's blood pressure: Elevated blood pressure Blood pressure disposition: Elevated BP felt to be situational Impression Primary Impression: Bronchitis Additional Impressions: Chest pain Dyspnea Departure Information Dispostion Home / Self-Care Condition GOOD Referrals Norberto Anderson MD (PCP) Patient Instructions My [facility] Additional Instructions Albuterol Inhaler: Take 2 puffs four times daily for five days, then as needed. Azithromycin(Zithromax) 250mg: Take one a day for 4 additional days. All antibiotics can cause diarrhea. If this occurs and you feel worse or it does not resolve in 1-2 days follow up with your doctor or return to the Emergency Department as this could be signs of serious underlying problems. Any medication can cause an allergic reaction, stop the pills immediately and return to the ER for rash, hives, breathing difficulties, or swelling. Acetaminophen(Tylenol) may be used for fever or pain. Use 1000mg every six hours as needed. Avoid using more than 3000mg in a 24 hour period. Rest and drink plenty of fluids. Avoid smoke/smoking, fumes, dust, or any triggers in the past that may have affected your breathing. Continue current medications. Return to the ER for chest pain, difficulty breathing, fevers, vomiting, worsening of your condition, or as needed. Follow up with your primary physician in 2-3 days for a recheck of your current condition. Problem Qualifiers
[2017-05-19] MEDS ORDERED: AZIT250T PO (04:00)
[2017-05-19] MEDS ORDERED: ALBUTEROL HFA 8 GM INHALER INH STA (04:09)
[2017-05-19 04:14] VITALS: BP 145/83; PULSE 91; O2SAT 92
--- NOTE | 2017-05-19 07:01 | DIAGNOSTIC IMAGING REPORT ---
CT ANGIOGRAPHY OF THE CHEST, PULMONARY EMBOLUS PROTOCOL CLINICAL HISTORY: Chest pain, shortness of breath and elevated d-dimer. COMPARISON STUDY: Chest CT August 03, 2014. TECHNIQUE: Following IV administration of 89 mL of Optiray-320, helical axial images of the chest were obtained utilizing the pulmonary embolus protocol. Maximal intensity projections and sagittal and coronal reformats were viewed on an independent 3D workstation. IV contrast was administered without complication. A dose lowering technique was utilized adhering to the principles of ALARA. CT DOSE: 690.11 mGy.cm FINDINGS: No pulmonary emboli are identified although the segmental and subsegmental pulmonary arteries within the lower lobes are suboptimally assessed on this exam due to respiratory motion and suboptimal opacification. There is no evidence for thoracic aortic dissection. The heart is mildly enlarged. There is no pericardial effusion. There are no enlarged axillary, mediastinal or hilar lymph nodes. The central airways are patent. There is no consolidation to suggest pneumonia. There is mild multifocal mucus plugging. There may be mild bronchiectasis. No pneumothorax or pleural effusion is noted. There are several subacute to chronic left-sided rib fractures. As before, a normal-appearing spleen is not identified. There is evidence for splenosis. IMPRESSION: 1. No pulmonary emboli identified although segmental and subsegmental pulmonary arteries within the lower lobes suboptimally assessed on this exam. 2. Mild cardiomegaly. 3. No acute intrathoracic findings. Electronically signed by: Denis Duggan M.D. 05/19/2017 7:00 AM Dictated Date/Time: 05/19/2017 6:52 AM
== END 2017-05-19 04:16 | disposition home or self-care (01) ==
LOC: C.EDB 22:17 → C.EDA 05-19 04:16
DX: J40 Bronchitis, not specified as acute or chronic (principal); R07.9 Chest pain, unspecified; R06.00 Dyspnea, unspecified; J45.909 Unspecified asthma, uncomplicated; I10 Essential (primary) hypertension; E11.9 Type 2 diabetes mellitus without complications; R11.10 Vomiting, unspecified; E78.5 Hyperlipidemia, unspecified; E03.9 Hypothyroidism, unspecified; M81.0 Age-related osteoporosis without current pathological fracture; F32.9 Major depressive disorder, single episode, unspecified; Z79.02 Long term (current) use of antithrombotics/antiplatelets; Z79.899 Other long term (current) drug therapy; I25.2 Old myocardial infarction; Z86.19 Personal history of other infectious and parasitic diseases; Z87.440 Personal history of urinary (tract) infections; Z87.448 Personal history of other diseases of urinary system; Z87.828 Personal history of other (healed) physical injury and trauma; Z80.8 Family history of malignant neoplasm of other organs or systems; Z82.49 Family history of ischemic heart disease and other diseases of the circulatory system; Z83.3 Family history of diabetes mellitus; Z83.6 Family history of other diseases of the respiratory system; Z83.79 Family history of other diseases of the digestive system; Z84.1 Family history of disorders of kidney and ureter

== ENCOUNTER 2017-06-07 18:28 | Emergency (ER) | payer OTHER ==
[~2017-06-07] VITALS: Ht 157.5 cm; Wt 107.0 kg
[~2017-06-07 18:28] MED LIST changes: -AMT25 PO; -CARI350T28 PO; +CLOP1TAB15 PO; +CYCL10TA6 PO; +NTRGSL/4 UT; +ROSU20TA PO
[2017-06-07 18:30] VITALS: BP 191/126; PULSE 96; TEMP 36.6; O2SAT 96; Ht 157.5 cm; Wt 107.0 kg
[2017-06-07] MEDS ORDERED: OXYCODONE IR HOME PACK PO ONE (19:00)
--- NOTE | 2017-06-07 19:01 | EMERGENCY ROOM VISIT NOTE ---
History First contact with patient: 18:35 Chief Complaint: KNEEPAIN Stated Complaint: NEED KNEE REPLACEMENT - BAD REACTION TO CORTISONE History of Present Illness The patient is a 56 year old female who presents to the Emergency Room with complaints of left knee pain. The patient reports that she has had issues with her left knee for about 5 years. She has been told in the past that she needs a knee replacement, but has been receiving steroid injections which seems to help her knee. She reports that 10 days ago, she felt that she must have twisted her knee overnight because it was more painful than normal. The next night, she was walking in her knee gave out on her. She was seen by orthopedics and had a steroid injection. She states that typically, she feels much better approximately 3 days after the steroid injection, but this did not occur. She has had persistent pain in the knee and states that her knee has been giving out on her. She has an appointment set up with Dr. Cohen to discuss scheduling a knee replacement. The patient takes chronic opiates, oxycodone 20 mg 4 times daily for chronic back pain. She states that she went to the clinic today to get her prescription filled, however when she arrived no one was there. She is also concerned because she is scheduled to work tomorrow. She just started a new job and does not feel she will be able to work due to her knee giving out. She denies any calf pain, numbness or weakness. Review of Systems A complete 10 point review of systems was reviewed with the patient with pertinent positives and negatives as per history of present illness. All else were negative. Past Medical/Surgical History Medical Problems: (1) Abdominal pain (2) ACS (acute coronary syndrome) (3) Acute renal failure (4) ELIO (acute kidney injury) (5) Anxiety State Nos (6) Asthma (7) Asthma (8) Back pain (9) Back pain (10) CHI (closed head injury) (11) Contusion of multiple sites (12) Contusion of multiple sites (13) Contusion of third finger, right (14) Degenerative arthritis of knee (15) Dehydration (16) Depressive Disorder Nec (17) Diab Niyah Wo Compl, Type Ii Or Unspec Type, Not Uncntrld (18) Esophageal Reflux (19) Fall (20) Fall due to slipping on ice or snow (21) Foot pain (22) Hx-Venous Thrombosis&Embolism (23) Hyperlipidemia Nec/Nos (24) Hypertension (25) Hypotension (26) Hypotension (27) Hypothyroidism Nos (28) Knee contusion (29) Left wrist pain (30) Leukocytosis (31) Lumbar Disc Displacement (32) Lumbar strain (33) Lumbosacral Neuritis Nos (34) Morbid Obesity (35) Nausea and vomiting (36) Nausea, vomiting, and diarrhea (37) Osteoporosis Nos (38) Positive blood culture (39) Post concussion syndrome (40) Right flank pain (41) Sepsis (42) SIRS (systemic inflammatory response syndrome) (43) Splenosis (44) UTI (urinary tract infection) Surgical Problems: (1) Hx of appendectomy (2) Hx of hernia repair Family History Asthma Diabetes mellitus FHx: cancer (skin) FHx: heart failure Gallbladder disease Heart disease Hypertension Kidney stones Social History Smoking Status: Never Smoker Alcohol Use: occasionally Drug Use: none Marital Status: single Housing Status: lives with family Occupation Status: employed Current/Historical Medications Scheduled Clopidogrel (Plavix), 75 MG PO DAILY Cyclobenzaprine Hcl (Flexeril), 10 MG PO PRN UD Fluoxetine (Prozac), 40 MG PO HS Fluticasone Prop/Salmeterol (Advair Diskus 500/50 60 Dose), 1 PUFF INH BID Gabapentin (Neurontin), 800 MG PO QID Levothyroxine Sodium (Synthroid), 150 MCG PO QAM Metoprolol Succinate (Metoprolol Succinate ER), 100 MG PO DAILY Montelukast Sodium (Singulair), 10 MG PO QAM Omeprazole (Prilosec), 40 MG PO QAM Rosuvastatin Calcium (Crestor), 20 MG PO DAILY Scheduled PRN Albuterol Hfa (Ventolin Hfa), 2 PUFFS INH QID PRN for Wheezing Albuterol Sulf (Albuterol Sulfate), 1 DOSE NEB Q4 PRN for Wheezing Nitroglycerin (Nitrostat), 0.4 MG UT PRN PRN for chest pain Physical Exam Vital Signs Date Time Temp Pulse Resp B/P (MAP) Pulse Ox O2 Delivery O2 Flow Rate FiO2 06/07/17 18:30 36.6 96 16 191/126 96 Room Air Physical Exam VITALS: Vitals are noted on the nurse's note and reviewed by myself. Vital signs stable. GENERAL: This is a 56-year-old female, in no acute distress, nondiaphoretic, well-developed well-nourished. MUSCULOSKELETAL: There is no significant edema or erythema of the left knee. There is mild tenderness to palpation of the medial portion of the knee. Decreased range of motion secondary to pain. NEURO: Patient was alert and oriented to person place and time. Medical Decision & Procedures Medical Decision The patient was evaluated as above. She does admit that she has chronic issues with the left knee. She has been following up with orthopedics. I do not feel that any further evaluation of the knee pain will benefit her at this time. She has already been evaluated adequately by orthopedics. According to the patient, she is set up to be scheduled for a knee replacement. She was given a home pack of oxycodone as she was not able to receive her prescription for oxycodone. She does receive regular prescriptions and her PDMP record is consistent with her clinical history. The patient was given a home pack of oxycodone and a walker. She was advised to follow-up with her orthopedist for further evaluation. She verbalized understanding of my assessment and treatment plan and was discharged home in good condition. [place] Drug Monitoring Program Search Results: patient reviewed within database (recieves regular rx from pain mgmt- last rx 05/17/17) Medication Reconcilliation Current Medication List: was personally reviewed by me Blood Pressure Screening Patient's blood pressure: Elevated blood pressure Blood pressure disposition: Referred to PCP Impression Primary Impression: Chronic knee pain Departure Information Dispostion Home / Self-Care Condition GOOD Referrals Norberto Anderson MD (PCP) Lele Cohen M.D. Patient Instructions My [facility] Additional Instructions You have been prescribed OxyIR to be used for pain control. Take 1-2 tablets every 4-6 hours as needed for pain. This is a narcotic medication. You cannot drive or consume alcohol while on this medicine. This medicine should only be used for pain that cannot be controlled with [id number] pain medicines. Follow-up with your orthopedic provider as scheduled. Use the walker to help with walking until your knee is feeling better. Return to the emergency department with worsening or new/concerning symptoms. Problem Qualifiers Primary Impression: Chronic knee pain Laterality: left Qualified Codes: M25.562 - Pain in left knee; G89.29 - Other chronic pain
== END 2017-06-07 19:16 | disposition home or self-care (01) ==
LOC: C.EDB 18:29 → C.EDD 19:16
DX: M25.562 Pain in left knee (principal); G89.29 Other chronic pain; I24.9 Acute ischemic heart disease, unspecified; N17.9 Acute kidney failure, unspecified; F41.9 Anxiety disorder, unspecified; J45.909 Unspecified asthma, uncomplicated; F32.9 Major depressive disorder, single episode, unspecified; E11.9 Type 2 diabetes mellitus without complications; K21.9 Gastro-esophageal reflux disease without esophagitis; Z86.718 Personal history of other venous thrombosis and embolism; E78.5 Hyperlipidemia, unspecified; I10 Essential (primary) hypertension; M54.17 Radiculopathy, lumbosacral region; E66.01 Morbid (severe) obesity due to excess calories; M81.0 Age-related osteoporosis without current pathological fracture; Z87.440 Personal history of urinary (tract) infections; Z83.6 Family history of other diseases of the respiratory system; Z83.3 Family history of diabetes mellitus; Z83.79 Family history of other diseases of the digestive system; Z82.49 Family history of ischemic heart disease and other diseases of the circulatory system; Z84.1 Family history of disorders of kidney and ureter; Z79.02 Long term (current) use of antithrombotics/antiplatelets; Z79.899 Other long term (current) drug therapy

== ENCOUNTER 2017-08-08 14:11 | Emergency (ER) | payer OTHER ==
[~2017-08-08] VITALS: Ht 154.9 cm; Wt 102.7 kg
[2017-08-08 14:20] VITALS: Ht 154.9 cm; Wt 102.7 kg
[2017-08-08 15:11] VITALS: BP 125/97; PULSE 85; TEMP 37; O2SAT 98
--- NOTE | 2017-08-11 16:05 | EMERGENCY ROOM VISIT NOTE ---
ED Visit Note First contact with patient: 14:29 Chief Complaint: Left ear pain. History of Present Illness: Ms. Cummings is a 56-year-old white female who ambulates into the ED complaining of left ear pain and sinus congestion. Patient reports her symptoms started 3 days ago and have been constant. Historically patient reports that she has a history of seasonal allergies. Patient describes her left ear pain as if something is crawling inside her inner ear. She rates her discomfort 8/10. Her pain has been intermittent. She has not identified any aggravating or alleviating factors related to the pain. She has not taken medications for pain prior to arrival at the hospital. Associated with her pain she reports she has a increase in sinus congestion. She denies any recent trauma, fevers, chills, sweats, skin eruptions, skin color changes, hearing changes, ear drainage, sore throat, painful talking, drooling, inability to swallow, nasal drainage, cough, wheezing, shortness of breath, decreased appetite, nausea/vomiting Review of Systems: As noted above in history of present illness. 8 body systems were reviewed and found to be negative as noted above. Past Medical History: As noted above, diabetes, heart disease, hypertension, kidney disease, asthma, bronchitis, pneumonia, pulmonary embolism, kidney stones , CVA, status post hernia repair, splenectomy, cholecystectomy. Current Medications: Medications Dose Route/Sig Max Daily Dose Days Date Category Flexeril (Cyclobenzaprine Hcl) 10 Mg Tab 10 Mg PO PRN UD 05/18/17 Reported Crestor (Rosuvastatin Calcium) 20 Mg Tab 20 Mg PO DAILY 01/30/17 Reported Metoprolol Succinate ER (Metoprolol Succinate) 100 Mg Tabcr 100 Mg PO DAILY 01/06/17 Reported Nitrostat (Nitroglycerin) 0.4 Mg Tab 0.4 Mg UT PRN PRN 09/12/16 Reported Plavix (Clopidogrel Bisulfate) 75 Mg Tab 75 Mg PO DAILY 09/12/16 Reported Albuterol Sulfate (Albuterol Sulf) 2.5 Mg/0.5 Ml Nebu 1 Dose NEB Q4 PRN 07/25/16 Reported Ventolin Hfa (Albuterol) 200 Puffs/60278 Mcg Aers 2 Puffs INH QID PRN 07/25/16 Reported Neurontin (Gabapentin) 800 Mg Tab 800 Mg PO QID 3/30/17 Reported Prilosec (Omeprazole) 40 Mg Cap 40 Mg PO QAM 07/25/16 Reported Prozac (Fluoxetine HCl) 40 Mg Cap 40 Mg PO HS 08/29/15 Reported Advair Diskus 500/50 60 Dose (Fluticasone Prop/Salmeterol) 1 Ea Aerp 1 Puff INH BID 08/29/15 Reported Synthroid (Levothyroxine Sodium) 150 Mcg Tab 150 Mcg PO QAM 09/05/14 Reported Singulair (Montelukast Sodium) 10 Mg Tab 10 Mg PO QAM 08/03/14 Reported Allergies to Medications: NSAIDs. Social History: Patient is currently employed; she feels safe in her home environment; she denies tobacco and alcohol use. Physical Examination: Vital Signs: Date Time Temp Pulse Resp B/P (MAP) Pulse Ox O2 Delivery O2 Flow Rate FiO2 08/08/17 15:11 37.0 85 18 125/97 98 08/08/17 14:20 37.0 85 20 152/100 96 Room Air GENERAL: 56-year-old female in mild to moderate distress due to pain, nontoxic- appearing, afebrile and hemodynamically stable. NEUROLOGICAL: Awake, alert and oriented to person, place and time. Answering questions appropriately and following commands. Normal gait. Good hand eye coordination. No focal motor or sensory deficits. SKIN: Warm, dry and pink. No soft tissue eruptions or trauma noted. HEENT: Atraumatic and normocephalic. No erythema or tenderness over the frontal or maxillary sinuses. External ears are nontender. No tragal tenderness. Auditory canals are pink and patent. Tympanic membranes are not erythematous and mildly bulging but no cone of light distortion. No erythema or tenderness over the mastoid processes. PERRLA. Sclera white and conjunctiva pink. No drainage from naris and no audible congestion. Oral cavity moist and pink. Uvula is midline and no abscesses were seen. Pharynx is nonerythematous or edematous. Speech normal. No lymphadenopathy. Trachea midline. No jugular venous distention. BACK: No tenderness over the bony spine. No nuchal rigidity or meningismus. Full range of motion of the cervical spine. THORAX: Lungs sounds are clear to auscultation and equal bilaterally with symmetrical chest wall. No wheezing, rales or rhonchi. ED Course: Patient assessed as noted above. Patient's medication list was reviewed. Patient was offered pain medication and refused. Patient was educated about today's findings and instructed on her treatment plan ; she verbalized understanding and agreement with this plan. Clinical Impression: Congestion to the nasal sinuses. Left ear pain. Seasonal allergies. Decision-Making: Initially my differential diagnosis I considered sinus congestion, eustachian tube dysfunction, otitis externa, otitis media and other causes. Disposition: Patient discharged home in stable condition; prior to departure she was reassessed and subjectively reported she was feeling better and rated her discomfort 4/10. Plan: Patient was encouraged you 650 mg of acetaminophen every 6 hours as needed for angeles pain. Patient was encouraged to consider using a decongestant like pseudoephedrine for congestion. Patient was encouraged to follow-up with PCP if no better in 3-4 days. Patient was encouraged return the ED for worsening discomfort, hearing changes, ear drainage, dizziness, lightheadedness, fevers or any new/concerning symptoms.
== END 2017-08-08 15:13 | disposition home or self-care (01) ==
LOC: C.EDB 14:13 → C.EDD 15:13
DX: H92.02 Otalgia, left ear (principal); E11.9 Type 2 diabetes mellitus without complications; I10 Essential (primary) hypertension; R09.81 Nasal congestion; N28.9 Disorder of kidney and ureter, unspecified; J45.909 Unspecified asthma, uncomplicated; Z87.01 Personal history of pneumonia (recurrent); Z86.711 Personal history of pulmonary embolism; Z87.442 Personal history of urinary calculi; Z86.73 Personal history of transient ischemic attack (TIA), and cerebral infarction without residual deficits; Z90.49 Acquired absence of other specified parts of digestive tract; Z90.81 Acquired absence of spleen; Z79.01 Long term (current) use of anticoagulants; Z79.899 Other long term (current) drug therapy

== ENCOUNTER 2017-09-11 11:45 | Emergency (ER) | payer OTHER ==
[~2017-09-11] VITALS: Ht 154.9 cm; Wt 105.0 kg
[2017-09-11 11:56] VITALS: Ht 154.9 cm; Wt 105.0 kg
[2017-09-11] MEDS ORDERED: OXYCODONE HCL IR 5 MG TAB (IMMEDIATE RELEASE) PO STA (12:12)
[2017-09-11] MEDS ORDERED: METHYLPREDNISOLONE 125 MG VIAL IV STA (12:13)
[2017-09-11 13:07] LABS: BASO % 1.3 %; BASO ABS # 0.17 K/uL (0-0.2); EOS % 5.8 %; EOS ABS # 0.75 K/uL (0-0.5); HEMOGLOBIN 12.8 g/dL (12.0-16.0); IG# 0.01 K/uL (0.00-0.02); LYMPH % 32.7 %; LYMPH ABS # 4.26 K/uL (1.2-3.4); MEAN CELL VOLUME 85.7 fL (80-100); MEAN CORPUSCULAR HEMOGLOBIN 27.4 pg (25-34); MEAN PLATELET VOLUME 9.7 fL (7.4-10.4); MONO % 9.8 %; MONO ABS # 1.27 K/uL (0.11-0.59); NEUT % 50.3 %; NEUT ABS # 6.55 K/uL (1.4-6.5); PLATELET COUNT 482 K/uL (130-400); RED CELL DISTRIBUTION WIDTH CV 15.1 % (11.5-14.5); RED CELL DISTRIBUTION WIDTH SD 47.3 fL (36.4-46.3); WHITE BLOOD COUNT 13.01 K/uL (4.8-10.8)
[2017-09-11 13:27] LABS: ALBUMIN 3.8 gm/dl (3.4-5.0); ALKALINE PHOSPHATASE 110 U/L (45-117); ALT/SGPT 22 U/L (12-78); AST/SGOT 19 U/L (15-37); BLOOD UREA NITROGEN 23 mg/dl (7-18); CALCIUM 8.8 mg/dl (8.5-10.1); CARBON DIOXIDE 28 mmol/L (21-32); CREATININE 0.96 mg/dl (0.60-1.20); GLUCOSE 157 mg/dl (70-99); LIPASE 109 U/L (73-393); POTASSIUM 4.5 mmol/L (3.5-5.1); SODIUM 137 mmol/L (136-145); TOTAL PROTEIN 7.4 gm/dl (6.4-8.2)
[2017-09-11] MEDS ORDERED: FLUT0.15 NAE (13:34)
[2017-09-11] MEDS ORDERED: ESCI1TAB10 PO (13:34)
[2017-09-11] MEDS ORDERED: CETI10TA84 PO (13:34)
--- NOTE | 2017-09-11 13:39 | DIAGNOSTIC IMAGING REPORT ---
ABD/PELVIS WITHOUT FOR STONE HISTORY: 56 years-old Female lower back pain acute low back pain with concern for kidney stones. COMPARISON: CT abdomen and pelvis 09/04/2016 TECHNIQUE: Multiple axial CT images of the abdomen and pelvis were obtained without the use of IV contrast. A dose lowering technique was used consistent with the principals of GOYO. FINDINGS: Aortic annular and coronary arterial calcifications are noted. Lung bases are generally clear. Indeterminate 4 mm pleural-based nodule of the medial segment right middle lobe. There is no pneumatosis or pneumoperitoneum. Prior cholecystectomy. No intrahepatic biliary ductal dilation. Liver is unremarkable. Absent spleen with soft tissue attenuating areas of nodularity about the left upper and lower abdomen suggesting areas of splenosis, unchanged. 10 mm low attenuating focus within one of the lesions of the left upper quadrant suggests acquired splenic cyst. There is moderate generalized pancreatic atrophy. Adrenal glands are within normal limits. 1.3 cm low attenuating lesion of the superior pole right kidney suggests renal cyst. Urinary bladder is decompressed. No renal calculi or hydronephrosis. Prior hysterectomy. Indeterminate likely benign 1.4 x 0.8 cm cystic lesion about the right adnexum. No aortic aneurysm. There is no bowel obstruction or focal bowel wall thickening. Colonic diverticulosis without diverticulitis. The appendix is not definitively seen, likely surgically absent. No mesenteric inflammatory changes or ascites. Prior ventral abdominal wall herniorrhaphy with thinning of the rectus musculature. Bones appear to be intact. Severe facet arthropathy of the lower lumbar spine. The bones appear least mildly demineralized. Chronic compression deformity with vertebroplasty changes at L3. 10 mm retropulsion involving the posterior inferior endplate cause at least mild central canal narrowing. IMPRESSION: 1. No acute intra-abdominal or intrapelvic abnormality identified, specifically no renal calculi or obstructive uropathy. 2. Prior cholecystectomy, hysterectomy, appendectomy, splenectomy and ventral abdominal wall herniorrhaphy. Multiple splenules are again noted throughout the left hemiabdomen. 2. Colonic diverticulosis without diverticulitis. The above report was generated using voice recognition software. It may contain grammatical, syntax or spelling errors. Electronically signed by: Manoj Staley M.D. 09/11/2017 1:38 PM Dictated Date/Time: 09/11/2017 1:26 PM
[2017-09-11] MEDS ORDERED: PRED20TA PO (14:01)
[2017-09-11 14:09] VITALS: BP 148/81; PULSE 76; TEMP 36.9; O2SAT 92
--- NOTE | 2017-09-11 17:37 | EMERGENCY ROOM VISIT NOTE ---
History Report prepared by Mynor: Fátima Marr Under the Supervision of: Dr. Chencho Peñaloza D.O. First contact with patient: 12:02 Chief Complaint: ABDOMINAL PAIN Stated Complaint: LOWER L BACK PN, ABD PN FEELS LIKE LABOR History of Present Illness The patient is a 56 year old female who presents to the Emergency Room with complaints of worsening back pain starting this morning. The patient states that she has chronic back pain, but this is different. She states that it is in the lower left of her back. She reports that she has had it for a few weeks, but it was manageable. She states that she did not go see her PCP because she has an appointment in the next two weeks for a regular check-up. She states that she assumed they wouldn't do anything more for her since she is already on pain medications. The patient states that this pain feels like labor pains where it intermittently becomes more intense. The patient complains of urinary urgency. The patient denies anything making it better or worse, numbness or weakness in legs, numbness in her groin, and recent trauma or falls. Source of History: patient Onset: this morning Position: back (lower, left) Quality: other ("labor pains") Timing: worsening Associated Symptoms: + urinary symptoms, No weakness, No numbness Review of Systems See HPI for pertinent positives & negatives. A total of 10 systems reviewed and were otherwise negative. Past Medical & Surgical Medical Problems: (1) Abdominal pain (2) ACS (acute coronary syndrome) (3) Acute renal failure (4) ELIO (acute kidney injury) (5) Anxiety State Nos (6) Asthma (7) Asthma (8) Back pain (9) Back pain (10) CHI (closed head injury) (11) Contusion of multiple sites (12) Contusion of multiple sites (13) Contusion of third finger, right (14) Degenerative arthritis of knee (15) Dehydration (16) Depressive Disorder Nec (17) Diab Niyah Wo Compl, Type Ii Or Unspec Type, Not Uncntrld (18) Esophageal Reflux (19) Fall (20) Fall due to slipping on ice or snow (21) Foot pain (22) History of chronic back pain (23) Hx-Venous Thrombosis&Embolism (24) Hyperlipidemia Nec/Nos (25) Hypertension (26) Hypotension (27) Hypotension (28) Hypothyroidism Nos (29) Knee contusion (30) Left wrist pain (31) Leukocytosis (32) Lumbar Disc Displacement (33) Lumbar strain (34) Lumbosacral Neuritis Nos (35) Morbid Obesity (36) Nausea and vomiting (37) Nausea, vomiting, and diarrhea (38) Osteoporosis Nos (39) Positive blood culture (40) Post concussion syndrome (41) Right flank pain (42) Sepsis (43) SIRS (systemic inflammatory response syndrome) (44) Splenosis (45) UTI (urinary tract infection) Surgical Problems: (1) Hx of appendectomy (2) Hx of hernia repair Family History Asthma Diabetes mellitus FHx: cancer (skin) FHx: heart failure Gallbladder disease Heart disease Hypertension Kidney stones Social History Smoking Status: Former Smoker Alcohol Use: occasionally Drug Use: none Marital Status: single Housing Status: lives with family Occupation Status: employed Current/Historical Medications Scheduled Clopidogrel (Plavix), 75 MG PO DAILY Escitalopram Oxalate (Lexapro), 20 MG PO HS Fluticasone Prop/Salmeterol (Advair Diskus 500/50 60 Dose), 1 PUFF INH BID Gabapentin (Neurontin), 800 MG PO QID Levothyroxine Sodium (Synthroid), 150 MCG PO QAM Metoprolol Succinate (Metoprolol Succinate ER), 100 MG PO DAILY Montelukast Sodium (Singulair), 10 MG PO QAM Omeprazole (Prilosec), 40 MG PO QAM Prednisone (Prednisone), 1 TAB PO DAILY Rosuvastatin Calcium (Crestor), 20 MG PO DAILY Scheduled PRN Albuterol Hfa (Ventolin Hfa), 2 PUFFS INH QID PRN for Wheezing Albuterol Sulf (Albuterol Sulfate), 1 DOSE NEB Q4 PRN for Wheezing Cetirizine (Zyrtec), 10 MG PO DAILY PRN for Seasonal Allergies Fluticasone Propionate (Nasal) (Flonase Allergy Relief), 2 SPRAYS CANELO DAILY PRN for Seasonal Allergies Nitroglycerin (Nitrostat), 0.4 MG UT PRN PRN for chest pain Allergies Coded Allergies: Aspirin (Verified Allergy, Severe, SHORT OF BREATH, 09/11/17) Cephalexin (Verified Allergy, Severe, EDEMA OF FACE,LIPS,TONGUE, 09/11/17) Ketorolac Tromethamine (Verified Allergy, Severe, SHORTNESS OF BREATH, ) Latex2 -Systemic Allergic Response (Verified Allergy, Severe, DIFFICULTY BREATHING, 09/11/17) NSAIDs (Verified Allergy, Severe, SHORT OF BREATH, 09/11/17) Sulfa Antibiotics (Verified Allergy, Unknown, UNKNOWN- HAD RXN WHEN LITTLE , 09/11/17) Amitriptyline (Verified Adverse Reaction, Severe, NEURO COMPLICATIONS, ) Simvastatin (Verified Adverse Reaction, Intermediate, myalgias, 09/11/17) Metformin (Verified Adverse Reaction, Mild, GI SYMPTOMS, 09/11/17) Uncoded Allergies: adhesive (Allergy, Mild, rash,blister, 01/11/17) SORBAVIEW adhesive dressing Physical Exam Vital Signs Date Time Temp Pulse Resp B/P (MAP) Pulse Ox O2 Delivery O2 Flow Rate FiO2 09/11/17 14:09 36.9 76 18 148/81 92 09/11/17 13:56 76 18 148/81 92 Room Air 09/11/17 11:56 36.9 85 18 145/93 92 Room Air Physical Exam GENERAL: Sitting up in bed, holding lower back, alert, well appearing, well nourished, mild distress, non-toxic EYE EXAM: normal conjunctiva. OROPHARYNX: no exudate, no erythema, lips, buccal mucosa, and tongue normal and mucous membranes are moist NECK: supple, no nuchal rigidity, no adenopathy, non-tender LUNGS: Clear to auscultation. Normal chest wall mechanics HEART: no murmurs, S1 normal and S2 normal ABDOMEN: abdomen soft, non-tender, normo-active bowel sounds, no masses, no rebound or guarding. BACK: Back is symmetrical on inspection and there is no deformity, no midline tenderness, no CVA tenderness. SKIN: no rashes and no bruising UPPER EXTREMITIES: upper extremities are grossly normal. LOWER EXTREMITIES: No pitting edema. Flexion and extension of the hips, knees, ankles, and EHL 5/5 bilaterally. Gross sensation is intact. DPs are 2/4 bilateral. Patellar and Achilles reflexes are 2/4 bilateral NEURO EXAM: Normal sensorium, cranial nerves II-XII grossly intact, normal speech, no gross weakness of arms, no gross weakness of legs. Medical Decision & Procedures ER Provider Diagnostic Interpretation: Radiology results as stated below per my review and the radiologist's interpretation: ABD/PELVIS WITHOUT FOR STONE HISTORY: 56 years-old Female lower back pain acute low back pain with concern for kidney stones. COMPARISON: CT abdomen and pelvis 09/04/2016 TECHNIQUE: Multiple axial CT images of the abdomen and pelvis were obtained without the use of IV contrast. A dose lowering technique was used consistent with the principals of GOYO. FINDINGS: Aortic annular and coronary arterial calcifications are noted. Lung bases are generally clear. Indeterminate 4 mm pleural-based nodule of the medial segment right middle lobe. There is no pneumatosis or pneumoperitoneum. Prior cholecystectomy. No intrahepatic biliary ductal dilation. Liver is unremarkable. Absent spleen with soft tissue attenuating areas of nodularity about the left upper and lower abdomen suggesting areas of splenosis, unchanged. 10 mm low attenuating focus within one of the lesions of the left upper quadrant suggests acquired splenic cyst. There is moderate generalized pancreatic atrophy. Adrenal glands are within normal limits. 1.3 cm low attenuating lesion of the superior pole right kidney suggests renal cyst. Urinary bladder is decompressed. No renal calculi or hydronephrosis. Prior hysterectomy. Indeterminate likely benign 1.4 x 0.8 cm cystic lesion about the right adnexum. No aortic aneurysm. There is no bowel obstruction or focal bowel wall thickening. Colonic diverticulosis without diverticulitis. The appendix is not definitively seen, likely surgically absent. No mesenteric inflammatory changes or ascites. Prior ventral abdominal wall herniorrhaphy with thinning of the rectus musculature. Bones appear to be intact. Severe facet arthropathy of the lower lumbar spine. The bones appear least mildly demineralized. Chronic compression deformity with vertebroplasty changes at L3. 10 mm retropulsion involving the posterior inferior endplate cause at least mild central canal narrowing. IMPRESSION: 1. No acute intra-abdominal or intrapelvic abnormality identified, specifically no renal calculi or obstructive uropathy. 2. Prior cholecystectomy, hysterectomy, appendectomy, splenectomy and ventral abdominal wall herniorrhaphy. Multiple splenules are again noted throughout the left hemiabdomen. 2. Colonic diverticulosis without diverticulitis. The above report was generated using voice recognition software. It may contain grammatical, syntax or spelling errors. Electronically signed by: Manoj Staley M.D. 09/11/2017 1:38 PM Dictated Date/Time: 09/11/2017 1:26 PM Laboratory Results 09/11/17 12:53 Red Blood Count 4.67, Mean Corpuscular Volume 85.7, Mean Corpuscular Hemoglobin 27.4, Mean Corpuscular Hemoglobin Concent 32.0, Mean Platelet Volume 9.7, Neutrophils (%) (Auto) 50.3, Lymphocytes (%) (Auto) 32.7, Monocytes (%) (Auto) 9.8, Eosinophils (%) (Auto) 5.8, Basophils (%) (Auto) 1.3, Neutrophils # (Auto) 6.55, Lymphocytes # (Auto) 4.26, Monocytes # (Auto) 1.27, Eosinophils # (Auto) 0.75, Basophils # (Auto) 0.17 09/11/17 12:53 Test 09/11/17 12:40 09/11/17 12:53 Urine Color YELLOW Urine Appearance CLOUDY (CLEAR) Urine pH 5.0 (4.5-7.5) Urine Specific [place] 1.034 (1.000-1.030) Urine Protein NEG (NEG) Urine Glucose (UA) NEG (NEG) Urine Ketones NEG (NEG) Urine Occult Blood NEG (NEG) Urine Nitrite NEG (NEG) Urine Bilirubin NEG (NEG) Urine Urobilinogen NEG (NEG) Urine Leukocyte Esterase NEG (NEG) Urine WBC (Auto) 1-5 /hpf (0-5) Urine RBC (Auto) 0-4 /hpf (0-4) Urine Hyaline Casts (Auto) 1-5 /lpf (0-5) Urine Epithelial Cells (Auto) >30 /lpf (0-5) Urine Bacteria (Auto) NEG (NEG) Urine Test NEG (NEG) White Blood Count 13.01 K/uL (4.8-10.8) Red Blood Count 4.67 M/uL (4.2-5.4) Hemoglobin 12.8 g/dL (12.0-16.0) Hematocrit 40.0 % (37-47) Mean Corpuscular Volume 85.7 fL (80-100) Mean Corpuscular Hemoglobin 27.4 pg (25-34) Mean Corpuscular Hemoglobin Concent 32.0 g/dl (32-36) Platelet Count 482 K/uL (130-400) Mean Platelet Volume 9.7 fL (7.4-10.4) Neutrophils (%) (Auto) 50.3 % Lymphocytes (%) (Auto) 32.7 % Monocytes (%) (Auto) 9.8 % Eosinophils (%) (Auto) 5.8 % Basophils (%) (Auto) 1.3 % Neutrophils # (Auto) 6.55 K/uL (1.4-6.5) Lymphocytes # (Auto) 4.26 K/uL (1.2-3.4) Monocytes # (Auto) 1.27 K/uL (0.11-0.59) Eosinophils # (Auto) 0.75 K/uL (0-0.5) Basophils # (Auto) 0.17 K/uL (0-0.2) RDW Standard Deviation 47.3 fL (36.4-46.3) RDW Coefficient of Variation 15.1 % (11.5-14.5) Immature Granulocyte % (Auto) 0.1 % Immature Granulocyte # (Auto) 0.01 K/uL (0.00-0.02) Anion Gap 6.0 mmol/L (3-11) Est Creatinine Clear Calc Drug Dose 71.3 ml/min Estimated GFR () 75.6 Estimated GFR (Non- 65.2 BUN/Creatinine Ratio 23.8 (10-20) Calcium Level 8.8 mg/dl (8.5-10.1) Total Bilirubin 0.5 mg/dl (0.2-1) Direct Bilirubin < 0.1 mg/dl (0-0.2) Aspartate Amino Transf (AST/SGOT) 19 U/L (15-37) Alanine Aminotransferase (ALT/SGPT) 22 U/L (12-78) Alkaline Phosphatase 110 U/L (45-117) Total Protein 7.4 gm/dl (6.4-8.2) Albumin 3.8 gm/dl (3.4-5.0) Lipase 109 U/L (73-393) Laboratory results per my review. Medications Administered Medications (Trade) Dose Ordered Sig/Sid Route Start Time Stop Time Status Last Admin Dose Admin Oxycodone HCl (Roxicodone Immediate Rel Tab) 10 mg NOW STAT PO 09/11/17 12:12 09/11/17 12:13 DC 09/11/17 12:40 10 MG Methylprednisolone Sodium Succinate (Solu-Medrol IV) 125 mg NOW STAT IV 09/11/17 12:13 09/11/17 12:14 DC 09/11/17 12:40 125 MG ED Course ED COURSE: Vital signs were reviewed and showed situational hypertension. The patients medical record was reviewed The above diagnostic studies were performed and reviewed. ED treatments and interventions as stated above. 1204: The patient was evaluated in room B3B. A complete history and physical examination was performed. 1212: Ordered Oxycodone HCl 10 mg PO. 1213: Ordered Solu-Medrol IV 125 mg IV. 1215: I reevaluated the patient and spoke to her about her treatment plan. 1252: I reevaluated the patient and she is sitting up in the room talking comfortably to the volunteer. 1352: Upon reevaluation, the patient is resting comfortably.I discussed my findings with the patient and she understands and agrees with the treatment plan. Based on the patients age, coexisting illnesses, exam and lab findings the decision to treat as an outpatient was made. The patient remained stable while under my care. The patient appeared well at the time of discharge. Medical Decision Differential diagnoses includes but is not limited to lumbar radiculopathy, kidney stone, muscle strain, facture, cauda equina, mass, and disc herniation. Patient is a 48-year-old female who presents the ER for pain in her back which she initially notes is worse with twisting turning and bending. It has been present for the past 2 weeks. No other exacerbating or remitting factors. She does have some urinary urgency. She is completely neurologically intact. No signs of cauda equina. No fevers. Labs were obtained and show a mild leukocytosis which is fairly persistent upon review of her previous white counts. BNP along with LFTs, bilirubin UA was negative. was negative. CT abdomen pelvis shows no stones. She was given oral OxyIR's and she was extremely agitated initially but informed her that she is on the no narcotics list. She notes that she has been receiving narcotics every time she comes here. Upon review of her chart this is true and she has gotten OxyIR. I did give her 10 mg of OxyIR. She was given steroids. Remainder of workup was unremarkable. She was discharged follow-up with PCP as an outpatient for back pain which is been present for the past 2 weeks. Discussed with Pt concerning signs and symptoms to watch out for. Pt was instructed to follow up with their PCP and discussed with the patient their option to return to the ED at anytime for persistent or worsening symptoms. The appropriate anticipatory guidance and out-patient management, including indications for return to the emergency department, were explained at length to the patient and understood. Medication Reconcilliation Current Medication List: was personally reviewed by me Blood Pressure Screening Patient's blood pressure: Elevated blood pressure Blood pressure disposition: Elevated BP felt to be situational Impression Primary Impression: Back pain Additional Impression: Leukocytosis Scribe Attestation The scribe's documentation has been prepared under my direction and personally reviewed by me in its entirety. I confirm that the note above accurately reflects all work, treatment, procedures, and medical decision making performed by me. Departure Information Dispostion Home / Self-Care Prescriptions Prednisone (Prednisone) 20 Mg Tab 1 TAB PO DAILY for 5 Days, #5 TAB Prov: Chencho Peñaloza, 09/11/17 Referrals Norberto Anderson MD (PCP) Forms Call Back Authorization, HOME CARE DOCUMENTATION FORM, IMPORTANT VISIT INFORMATION Patient Instructions My [facility] Additional Instructions Please follow up with your primary care doctor with in the next 24 hours. Any worsening of your symptoms, please return to the ED immediately. This includes any fevers greater than 100.4, worsening pain, weakness or numbness in her legs , numbness in her groin, inability to move your bowels, chest pain, shortness breath, persistent nausea, vomiting, unable to eat or drink, or any other concerning signs or symptoms from your standpoint. You were given medications during this visit that will inhibit your ability to drive, operate machinery and work. Please do NOT drive, operate machinery, drink alcohol or work for the next 12hrs. Problem Qualifiers Primary Impression: Back pain Back pain location: low back pain Chronicity: acute Back pain laterality: midline Sciatica presence: unspecified whether sciatica present Qualified Codes: M54.5 - Low back pain Additional Impression: Leukocytosis Leukocytosis type: unspecified Qualified Codes: D72.829 - Elevated white blood cell count, unspecified
== END 2017-09-11 14:10 | disposition home or self-care (01) ==
LOC: C.EDB 11:47
DX: M54.5 Low back pain (principal); G89.29 Other chronic pain; D72.829 Elevated white blood cell count, unspecified; E11.9 Type 2 diabetes mellitus without complications; I10 Essential (primary) hypertension; E78.5 Hyperlipidemia, unspecified; M51.26 Other intervertebral disc displacement, lumbar region; Z86.718 Personal history of other venous thrombosis and embolism; Z87.891 Personal history of nicotine dependence; Z79.01 Long term (current) use of anticoagulants; Z79.52 Long term (current) use of systemic steroids; Z79.899 Other long term (current) drug therapy; Z88.6 Allergy status to analgesic agent; Z88.2 Allergy status to sulfonamides; Z88.1 Allergy status to other antibiotic agents; Z91.040 Latex allergy status; Z88.8 Allergy status to other drugs, medicaments and biological substances; Z91.048 Other nonmedicinal substance allergy status

== ENCOUNTER → 2017-11-21 | Outpatient (CLI) | payer OTHER ==
[~2017-11-21] MED LIST changes: +CETI10TA84 PO; -CYCL10TA6 PO; +ESCI1TAB10 PO; -FLUO40CA8 PO; +FLUT0.15 NAE; +OXYC20TA50 PO
== END | disposition home or self-care (01) ==
LOC: C.RDSM 10:10
PROVIDERS: ATTEND Physical Medicine & Rehabilitation Sports Medicine
DX: M17.11 Unilateral primary osteoarthritis, right knee (principal)

== ENCOUNTER 2017-12-09 08:19 | Inpatient (IN) | payer OTHER ==
[2017-11-25 13:35] VITALS: BMI 42.0
--- NOTE | 2017-11-28 13:38 | PAT Medication Instructions ---
Service Date Nov 28, 2017. Current Home Medication List Albuterol Hfa (Ventolin Hfa), 2 PUFFS INH QID PRN for Wheezing Cetirizine (Zyrtec), 10 MG PO DAILY PRN for Seasonal Allergies Clopidogrel (Plavix), 75 MG PO QPM Escitalopram Oxalate (Lexapro), 40 MG PO HS Fluticasone Prop/Salmeterol (Advair Diskus 500/50 60 Dose), 1 PUFF INH BID Fluticasone Propionate (Nasal) (Flonase Allergy Relief), 2 SPRAYS CANELO DAILY PRN for Seasonal Allergies Gabapentin (Neurontin), 800 MG PO QID Levothyroxine Sodium (Synthroid), 150 MCG PO QAM Metoprolol Succinate (Metoprolol Succinate ER), 100 MG PO HS Montelukast Sodium (Singulair), 10 MG PO QAM Nitroglycerin (Nitrostat), 0.4 MG UT PRN PRN for chest pain Omeprazole (Prilosec), 40 MG PO QAM Oxycodone Hcl (Oxycontin), 20 MG PO QID Rosuvastatin Calcium (Crestor), 20 MG PO HS Medication Instructions For Your Scheduled Surgery - Check with surgeon and prescribing physician for instructions: Clopidogrel (Plavix), 75 MG PO QPM - Hold the following medications the morning of surgery: Montelukast Sodium (Singulair), 10 MG PO QAM Cetirizine (Zyrtec), 10 MG PO DAILY PRN for Seasonal Allergies - Take the following medications the morning of surgery with a sip of water: Albuterol Hfa (Ventolin Hfa), 2 PUFFS INH QID PRN for Wheezing (bring with you to hospital morning of surgery; use if needed) Fluticasone Prop/Salmeterol (Advair Diskus 500/50 60 Dose), 1 PUFF INH BID Fluticasone Propionate (Nasal) (Flonase Allergy Relief), 2 SPRAYS CANELO DAILY PRN for Seasonal Allergies (if needed) Gabapentin (Neurontin), 800 MG PO QID Levothyroxine Sodium (Synthroid), 150 MCG PO QAM Nitroglycerin (Nitrostat), 0.4 MG UT PRN PRN for chest pain (if needed) Omeprazole (Prilosec), 40 MG PO QAM Oxycodone Hcl (Oxycontin), 20 MG PO QID (okay to take up to 4 hours prior to surgery if needed) - Take the following medications as scheduled the night before surgery: Rosuvastatin Calcium (Crestor), 20 MG PO HS Oxycodone Hcl (Oxycontin), 20 MG PO QID Nitroglycerin (Nitrostat), 0.4 MG UT PRN PRN for chest pain (if needed) Metoprolol Succinate (Metoprolol Succinate ER), 100 MG PO HS Gabapentin (Neurontin), 800 MG PO QID Fluticasone Prop/Salmeterol (Advair Diskus 500/50 60 Dose), 1 PUFF INH BID Fluticasone Propionate (Nasal) (Flonase Allergy Relief), 2 SPRAYS CANELO DAILY PRN for Seasonal Allergies (if needed) Escitalopram Oxalate (Lexapro), 40 MG PO HS Cetirizine (Zyrtec), 10 MG PO DAILY PRN for Seasonal Allergies (if needed) Albuterol Hfa (Ventolin Hfa), 2 PUFFS INH QID PRN for Wheezing (if needed) If you have any questions please call us at [phone] or [phone] or [phone]
[2017-11-28 13:54] VITALS: BMI 42.0
[2017-11-28 15:55] LABS: PTT PATIENT 26.4 SECONDS (21.0-31.0)
--- NOTE | 2017-12-02 14:19 | History and Physical ---
History & Physical Date & Time of Service: Dec 02, 2017 at 13:53 Chief Complaint: Right Knee Osteoarthritis Primary Care Physician: Norberto Anderson MD History of Present Illness Source: patient Patient is a pleasant 57-year-old female who is here today for preoperative history and physical. She is scheduled to have an elective right total knee arthroplasty on December 09, [address] Lele Cohen. Her surgery will be performed at [facility]. She complains of bilateral knee pain on a daily basis but her right knee is definitely worse in the left. She describes her pain is generalized over the knee but most exquisite on the inside aspect of the knee. She states that her pain is progressively worsened over the last year and especially last couple of weeks. She states that 5 days ago she could not even bear any weight on her right knee due to pain. She states that after sitting or standing for a period of time her right knee will "lock up" and she does take a couple of steps to unlock it. Her pain is increased with activity and weightbearing. Her activities of daily living have decreased significantly over the last 6 months due to pain in both of her knees. She has pain with range of motion and limited motion of both knees due to pain. Aggravating activities include walking, going up and down steps, resting, sitting or standing in one position for a length of time. Prior treatments include corticosteroid injections, Tylenol, chronic narcotics, Visco supplementation and bracing. She is unable to take nonsteroidal anti- inflammatory drugs due to her allergy. She is also use a cane to assist with ambulation. She states that she has declined with her health and ability to keep her job due to pain in her knees. She has lost approximately 50 pounds the last 6-12 months in an attempt to improve her knee pain. X-rays of both of her knees have been obtained and show end-stage osteoarthritis of her knees with osteophyte formation and [id number] in the medial compartment especially on her right knee. Due to her failure of all conservative treatment, surgical intervention was discussed.She has agreed to proceed with surgery and is scheduled for an elective right total knee replacement with Dr. Cohen. Past Medical/Surgical History Medical Problems: 1. History of abdominal wall abscess 2. Acute coronary syndrome 3. Chronic low back pain 4. History of acute kidney failure 5. Anxiety 6. Asthma 7. Osteoarthritis of bilateral knees 8. Depression 9. Diabetes 10. Esophageal reflux disease 11. History of DVT/Pulmonary embolism 12. Hyperlipidemia 13. Hypertension 14. Hypothyroidism 15. Morbid obesity 16. Osteoporosis 19. Migraines Surgical Problems: 1. Appendectomy 2. Hernia repair 3. Cholecystectomy 4. Angiography August 2016 5. Arthroplasty of thumb joint 6. Arthroscopically of knee with medial meniscectomy in 2011 7. Carpal tunnel release in September 2009 8. Closed reduction of us and ulna on 2009 9. Kyphoplasty 10. History of rotator cuff repair 11. Splenectomy Family History Asthma Diabetes mellitus FHx: cancer (skin) FHx: heart failure Gallbladder disease Heart disease Hypertension Kidney stones Cardiovascular disease: Mother, father, brother, brother Diabetes: Father Gallbladder disease: Brother, mother Myocardial infarction: Mother, father, brother High blood pressure: Mother, father, brother Melanoma: Father Migraine: Father Osteoarthritis: Father Social History Smoking Status: Former Smoker Smokeless Tobacco Use: No Alcohol Use: none Drug Use: none Marital Status: single Housing status: lives with family Occupational Status: unemployed Immunizations History of Influenza Vaccine: No Influenza Vaccine Date: Jan 07, 2013 History of Tetanus Vaccine?: Unknown History of Pneumococcal: Unknown Pneumococcal Date: Jan 08, 2012 History of Hepatitis B Vaccine: Unknown Allergies Coded Allergies: Aspirin (Verified Allergy, Severe, SHORT OF BREATH, 11/25/17) Cephalexin (Verified Allergy, Severe, EDEMA OF FACE,LIPS,TONGUE, 11/25/17) Ketorolac Tromethamine (Verified Allergy, Severe, SHORTNESS OF BREATH, ) Latex2 -Systemic Allergic Response (Verified Allergy, Severe, DIFFICULTY BREATHING, 11/25/17) NSAIDs (Verified Allergy, Severe, SHORT OF BREATH, 11/25/17) Sulfa Antibiotics (Verified Allergy, Unknown, UNKNOWN- HAD RXN WHEN LITTLE , 11/25/17) Amitriptyline (Verified Adverse Reaction, Severe, NEURO COMPLICATIONS, ) Simvastatin (Verified Adverse Reaction, Intermediate, myalgias, 11/25/17) Metformin (Verified Adverse Reaction, Mild, GI SYMPTOMS, 11/25/17) Uncoded Allergies: adhesive (Allergy, Mild, rash,blister, 01/11/17) SORBAVIEW adhesive dressing Home Medications Scheduled Clopidogrel (Plavix), 75 MG PO QPM Escitalopram Oxalate (Lexapro), 40 MG PO HS Fluticasone Prop/Salmeterol (Advair Diskus 500/50 60 Dose), 1 PUFF INH BID Gabapentin (Neurontin), 800 MG PO QID Levothyroxine Sodium (Synthroid), 150 MCG PO QAM Metoprolol Succinate (Metoprolol Succinate ER), 100 MG PO HS Montelukast Sodium (Singulair), 10 MG PO QAM Omeprazole (Prilosec), 40 MG PO QAM Oxycodone Hcl (Oxycontin), 20 MG PO QID Rosuvastatin Calcium (Crestor), 20 MG PO HS Scheduled PRN Albuterol Hfa (Ventolin Hfa), 2 PUFFS INH QID PRN for Wheezing Cetirizine (Zyrtec), 10 MG PO DAILY PRN for Seasonal Allergies Fluticasone Propionate (Nasal) (Flonase Allergy Relief), 2 SPRAYS CANELO DAILY PRN for Seasonal Allergies Nitroglycerin (Nitrostat), 0.4 MG UT PRN PRN for chest pain Review of Systems Constitutional: + fatigue (Due to pain in her knees), No fever, No chills, No sweats, No weight loss Eyes: No worsening of vision, No redness ENT: + problem reported (States she has sinus pressure today), No hearing loss , No nasal symptoms, No sore throat, No tinnitus, No dental problems Respiratory: + dyspnea on exertion, No cough, No sputum, No wheezing, No shortness of breath Cardiovascular: No chest pain, No edema, No palpitations Abdomen: No pain, No nausea, No vomiting, No diarrhea, No constipation Musculoskeletal: + joint pain (Bilateral knees, right greater than left), No swelling, No calf pain Genitourinary - Female: No dysuria, No urinary frequency, No urinary urgency, No urinary retention Neurologic: No memory loss, No numbness/tingling Psychiatric: + substance abuse (On oxycodone 20 mg 2 years) Endocrine: No fatigue, No excessive thirst, No excessive urination Hematologic / Lymphatic: No abnormal bleeding/bruising, No clotting problems Integumentary: No rash, No itch Allergic / Immunologic: + seasonal allergies, No environmental allergies Physical Exam Height: 154.7 cm Weight: 105.6 kg General Appearance: WD/WN, no apparent distress Head: normocephalic, atraumatic Eyes: normal inspection, PERRL, EOMI, sclerae normal ENT: normal ENT inspection, hearing grossly normal, TMs normal, pharynx normal Neck: supple, no adenopathy, thyroid normal, no carotid bruits, trachea midline Respiratory/Chest: chest non-tender, lungs clear, normal breath sounds, no respiratory distress, no accessory muscle use Cardiovascular: regular rate, rhythm, no edema, no gallop, no murmur, normal peripheral pulses Abdomen/GI: normal bowel sounds, non tender, soft Back: normal inspection, no CVA tenderness, no muscle spasm, normal range of motion Extremities/Musculoskelatal: no calf tenderness, normal capillary refill, no pedal edema, + pertinent finding (Range of motion of her right knee is 0-110 of flexion. She is evident straight leg raise. She is stable ligamentous exam. No joint effusion. No erythema, warmth, ecchymosis of her right knee. No distal edema. Mild crepitation with range of motion. She is pointedness palpation of the medial joint line. Full range of motion of her hip and ankle without any discomfort. Dorsalis pedis pulses 1+. Capillary refill is brisk) Neurologic/Psych: no motor/sensory deficits, alert, normal mood/affect, normal reflexes, oriented x 3 Skin: normal color, warm/dry, no rash Diagnostics Diagnostic Radiology Radiology images: AP standing, AP, lateral and merchant view bilateral knee show end-stage osteoarthritis of both knees, right greater than left. The medial compartment is [id number]. She has tricompartmental osteoarthritis. There is osteophyte formation and subchondral sclerosis. No evidence of fracture dislocation appreciated. CXR normal Normal EKG Impression Assessment and Plan Assessment: End-stage osteoarthritis right knee Plan: Patient is scheduled for elective right total knee arthroplasty with Dr. Lele Cohen on December 09, 2017. Risks and complications of the procedure were explained to the patient and include but are not limited to infection, pain , bleeding, scarring, nerve and blood vessel damage, wound problems, weakness, stiffness, incomplete relief of symptoms, hardware failure, loosening, wear, fracture, need for manipulation, blood clots, embolisms, heart attack, stroke and . All questions were answered and informed consent was obtained by Dr. Cohen. Postoperative course was discussed. She would like to go home with home health nursing and physical therapy. She does not have a walker available to her so she is given a prescription to get one preoperatively. Dental prophylaxis was discussed. She has stopped her Plavix, her last dose was December 01, 2017. She started her chlorhexidine washes/showers and mupirocin ointment as instructed by infectious disease due to her recent positive MRSA swab. Should premonition testing in which her PT PTT was done. Her preoperative lab work also included a CBC, BMP, hemoglobin A1c, type and screen, chest x-ray and EKG. She will have pre-operative medical clearance from her family physician Dr. Norberto Anderson. We will use Lovenox 30 mg twice a day 4-6 weeks after surgery for DVT prophylaxis. She will follow up with Dr. Cohen is scheduled 10-14 days after surgery for staple removal. All questions were answered. She does call with any further problems, questions or concerns. Advanced Directives Existing Living Will: No Existing Power of Registered Nurse Nursery: No Resuscitation Status VTE Prophylaxis Will order VTE Prophylaxis: Yes
[2017-12-09] VITALS (8 sets, daily range): BP systolic 112–148; BP diastolic 71–85; PULSE 66–112; TEMP 36.4–37.5; O2SAT 90–95; Ht 157.5 cm; Wt 104.3 kg
[~2017-12-09] VITALS: Ht 157.5 cm; Wt 104.3 kg
[2017-12-09] MEDS: TRANEXAMIC ACID INJ 1,000 MG x 2 Bags IV SCH ×4 (06:30→10:05)
[~2017-12-09 08:19] MED LIST changes: +ACETAMINOPHEN 500 MG TAB PO SCH; +ATROPINE SULFATE 0.1 MG/ML 5ML SYR IV PRN; +BUPIVACAINE 0.5 % 5 MG/1 ML PF 10ML VIAL ONE; +CLONIDINE HCL 0.1 MG/24 HR TRANSDERM SYS TD SCH; +EpHEDrine SULFATE INJ 50 MG/ML AMP IV PRN; +EpINEphrine INJ 1MG/ML AMP 1 MG/ML AMP ONE; +FAMOTIDINE 20 MG TAB PO SCH; +FENTANYL CITRATE INJ 50 MCG/1 ML 2 ML VIAL IV PRN; +FENTANYL CITRATE INJ 50 MCG/1 ML 2 ML VIAL ONE; +FLUMAZENIL 0.1 MG/1 ML 10 ML VIAL IV PRN; +GABAPENTIN 600 MG PO SCH; +HYDROmorphone INJ 2 MG/ML SYR/VIAL IV PRN; +LABETALOL HCL IV 5 MG/ML 20ML IV PRN; +LACTATED RINGER'S 1000ML 1,000 ML IV SCH; +LACTATED RINGER'S 1000ML 500 ML IV SCH; +LACTATED RINGER'S 1000ML IV SCH; +MEPERIDINE HCL 25 MG/ML CARP IV PRN; +METOCLOPRAMIDE HCL 10 MG TAB PO SCH; +MIDAZOLAM HCL 1 MG/ML 2ML VIAL ONE; +NALOXONE HCL 0.4 MG/1 ML VIAL/CARP IV PRN; +ONDANSETRON INJ 2 MG/ML 2 ML VIAL IV PRN; +OXYCODONE HCL 10 MG TABCR (OXYCONTIN) PO SCH; +PHENYLEPHRINE 100MCG/ML 5ML SYR IV PRN; +PROPOFOL IV EMULSION 10 MG/ML 20 ML VIAL ONE; +ROPIVACAINE 0.5% 5 MG/ML 30 ML VIAL ONE; +ROPIVACAINE 5MG/ML 30 ML 150 MG, BUPIVACAINE 0.5% MPF INJ 30 ML, EpINEphrine HCL INJ 0.... INFIL SCH; -RRALBUT2.5 NEB; +VANCOMYCIN IV 1,500 MG in SODIUM CHLORIDE 0.9% 500ML 500 ML IV SCH
--- NOTE | 2017-12-09 09:22 | History & Physical Bridge Note ---
H&P Re-Evaluation Bridge Note: I have examined the patient, reviewed the History & Physical and in the interval since the performance of the History & Physical I have noted the following changes of clinical significance: No changes noted
[2017-12-09] MEDS ORDERED: MIDAZOLAM HCL 1 MG/ML 2ML VIAL ONE ×3 (09:45→11:56)
[2017-12-09] MEDS ORDERED: ORTHO JOINT ANESTHETIC ONE (09:50)
[2017-12-09] MEDS ORDERED: POVIDONE-IODINE OP SOLN 30 ML BTL ONE (09:50)
[2017-12-09] MEDS ORDERED: BACITRACIN 50000 UNIT VIAL ONE (09:50)
[2017-12-09] MEDS ORDERED: EpINEphrine INJ 1MG/ML AMP 1 MG/ML AMP ONE (09:56)
[2017-12-09] MEDS: VANCOMYCIN HCL 1000MG/20ML VIAL ONE ×2 (10:17→11:09)
[2017-12-09] MEDS ORDERED: PHENYLEPHRINE 100MCG/ML 5ML SYR ONE (10:41)
[2017-12-09] MEDS ORDERED: EpHEDrine SULFATE 50MG/5ML SYR ONE (10:47)
[2017-12-09] MEDS ORDERED: PHENYLEPHRINE HCL INJ 10 MG/ML VIAL ONE (12:32)
--- NOTE | 2017-12-09 13:02 | [facility] Post Operative Brief Note ---
Immediate Operative Summary Operative Date Dec 09, 2017. Pre-Operative Diagnosis Right Knee Osteoarthritis Post-Operative Diagnosis Same as preop Procedure(s) Performed Right Total Knee Arthroplasty Surgeon Dr. Cohen Consumer Analyst Surgeon(s) Belen Gamez PA-C Estimated Blood Loss 15 ml Findings Consistent with Post-Op Diagnosis Specimens A. Right Knee Bone and Tissue Drains None Anesthesia Type MAC Spinal Regional Complication(s) none Disposition Accompanied Pt To Recover: no Disposition: Recovery Room / PACU
[2017-12-09] MEDS ORDERED: VANCOMYCIN CONSULT ACTIVE PRN (13:30)
[2017-12-09] MEDS ORDERED: BISACODYL 10 MG SUPP PR PRN (13:30)
[2017-12-09] MEDS ORDERED: CETIRIZINE HCL 10 MG TAB PO PRN (13:30)
[2017-12-09] MEDS ORDERED: FLUTICASONE PROPIONATE NA SPR 16 GM BTL NAE PRN (13:30)
[2017-12-09] MEDS ORDERED: ONDANSETRON INJ 2 MG/ML 2 ML VIAL IV PRN (13:30)
[2017-12-09] MEDS ORDERED: NITROGLYCERIN 0.4 MG SL PER TAB CHARGE UT PRN (13:30)
[2017-12-09] MEDS ORDERED: METOCLOPRAMIDE HCL INJ 5 MG/ML 2 ML VIAL IV PRN (13:30)
[2017-12-09] MEDS ORDERED: OXYCODONE HCL IR 5 MG TAB (IMMEDIATE RELEASE) PO PRN (13:30)
[2017-12-09] MEDS ORDERED: MoRPHine SULFATE 4 MG/ML 1 ML CARP\\VIAL IV PRN (13:30)
[2017-12-09] MEDS ORDERED: ALBUTEROL HFA 8 GM INHALER INH PRN (13:30)
[2017-12-09] MEDS ORDERED: MAGNESIUM HYDROXIDE SUSP 30 ML UDC PO PRN (13:30)
--- NOTE | 2017-12-09 13:32 | [facility] Operative Report ---
Operative Report Operative Date Dec 09, 2017. Pre-Operative Diagnosis Right Knee Osteoarthritis Post-Operative Diagnosis Same as preop Procedure(s) Performed Right Total Knee Arthroplasty Surgeon Dr. Cohen Slot Machine Department Floorperson Surgeon(s) Belen Gamez PA-C Estimated Blood Loss 15 ml Specimens A. Right Knee Bone and Tissue Drains None Anesthesia Type MAC Spinal Regional Complication(s) none Disposition no Recovery Room / PACU Indications Patient's 57-year-old female with severe osteoarthritis of her right knee refractory to nonsurgical methods of management. She has a history of MRSA infection. She has done mupirocin nasal swabs chlorhexidine wash and has received vancomycin preoperatively and in the cement. Description of Procedure Informed consent obtained. Patient identified. She identified the operative site as the right knee. I marked with my initials. Preop surgical [place] timeout was performed. Preop dose of IV antibiotics was given. She was positioned supine on the OR table with a bump under the right hip a tourniquet on the right thigh. The leg was large. The lower extremity was prepped and draped in the usual sterile fashion. A bump was placed under the calf. The exam under anesthesia revealed range of motion 0-115 of flexion. There was no pathological laxity. DVT prophylaxis with foot pumps intraoperatively and with mechanical devices Lovenox and early mobility postoperatively. A routine prep and drape was performed. The limb was exsanguinated with the Esmarch. Tourniquet inflated to 300 mmHg. A midline longitudinal incision was made followed by electrocautery down through the abundant a flat fat layer. The extensor mechanism was identified followed by medial parapatellar arthrotomy. Subsequent to that the retropatellar fat pad and the fat on the anterior aspect of the distal femur were resected. The synovial reflection in the lateral gutter was released. A medial release was performed. There were large osteophytes throughout the knee with grade 4 changes in the medial and patellofemoral compartments diffusely and perhaps grade 2 or 3 changes laterally. The medial meniscus was deficient. The lateral meniscus was intact. The cruciate ligaments were intact. Notch osteophytes were removed. The knee was then subluxated. Continuous Improvement Intern hole was drilled in the proximal tibia. This was followed by the insertion of intramedullary alignment ramez. The guide was set to resect 12 mm out of 5 valgus right angle. The extension gap was a symmetric 10. The trans-epicondylar axis was marked out. The distal femoral sizing guide was applied and sized to a 3. The external rotation holes were drilled with match epicondylar axis. The cuts were made protecting collateral ligaments. Loose bodies and osteophytes in the posterior compartment were removed the flexion gap was a symmetric 10. The box cutting guide was applied lateralized and the box cut was made followed by the application of the size 3 femoral component. Osteophytes under the collateral ligaments were removed. The tibia was incised to a 2.5 and prepared with the keel and punch. The knee was reduced and had a trace bit of hyperextension was stable in full extension and at 90 had trace MCL and LCL laxity at mid position the patella measured 22 mm in thickness. The guide was set to preserve 14 mm of bone for a 38 mm patella. The cut was made residual patellar thickness was 13 mm. The paddle was applied medialized and distal lysed aligned appropriately and the lug holes were drilled.. Patellar tracking was fine with no hands technique. The canals are plugged. The Orth or joint mix was injected throughout the knee. Betadine lavage was performed followed by pulsed lavage to clean the bony surfaces. 2 bags of Simplex P cement were mixed with each bag containing 2 g of vancomycin for total 4 g. The cement was mixed and then the components were cemented in place femur tibia and patella. The knee was held for extension until cement hardened. At that time tourniquet was let down after 85 minutes of inflation and meticulous hemostasis was performed there was no significant bleeding. Cement in the back the knee was removed as encountered. Stability was again assessed and the final 10 mm poly-was inserted. Betadine lavage and pulse lavage were performed. The extensor mechanism was closed with #2 FiberWire above the equator the patella and interrupted #1 Vicryl below. The fat layer was closed with 2 layers of 0 Vicryl and 2 oh on the skin followed by blayne. A soft sterile dressing Xeroform 4 x 4's ABD and a full-length Mehdi wrap. She was then awakened from anesthesia without difficulty and taken to the recovery room in stable condition. There were no complications. The resected bone was sent for specimen. Counts were correct in the case. Blood loss was proximally 15 cc. Composite patellar thickness was 23 mm at the conclusion of the case and gravity assisted flexion with the extensor mechanism closed was approximately 115-120. She was taken recovery room in stable condition. She can be rehabilitated according to the total knee protocol. Her blood thinner will begin the morning after surgery. There is no family available to speak to. I attest to the content of the Intraoperative Record and any orders documented therein. Any exceptions are noted below.
--- NOTE | 2017-12-09 13:45 | [facility] Operative Report ---
Operative Report Operative Date Dec 09, 2017. Pre-Operative Diagnosis Right Knee Osteoarthritis Post-Operative Diagnosis Same as preop Procedure(s) Performed Right Total Knee Arthroplasty Surgeon Dr. Cohen Senior Accounting Associate Surgeon(s) Belen Gamez PA-C Estimated Blood Loss 15 ml Findings DJD right knee Specimens A. Right Knee Bone and Tissue Drains None Anesthesia Type MAC Spinal Regional Complication(s) none Disposition no Recovery Room / PACU Indications Patient is a 57-year-old female presented to our office with complaints of right knee pain. Conservative treatment which consisted of physical therapy, steroid injections and Visco supplementation were performed. She continued to have progressively worsening pain. X-rays of her right knee found to have end- stage tricompartmental osteoarthritis. Surgical intervention recommended. She agreed to proceed with surgery. Risks and complications were discussed and informed consent was obtained. Description of Procedure Patient was taken to the operating room and placed under IV sedation. She was given 1500 mg of IV vancomycin for surgical prophylaxis. Timeout was performed. Peripheral nerve block was performed preoperatively. She was prepped and draped in routine sterile fashion. I was present during the entire case, please see Dr. Cohen's operative report for further detail. Patient was awakened and transferred to the recovery room in stable condition. I attest to the content of the Intraoperative Record and any orders documented therein. Any exceptions are noted below.
--- NOTE | 2017-12-09 13:55 | Anesthesiology Progress Note ---
Anesthesia Post Op Note Date & Time Dec 09, 2017 at 13:55 Vital Signs Pain Intensity: 0 Vital Signs Past 12 Hours Date Time Temp Pulse Resp B/P (MAP) Pulse Ox O2 Delivery O2 Flow Rate FiO2 12/09/17 13:40 70 16 102/66 96 Nasal Cannula 2 12/09/17 13:30 80 18 112/67 96 Room Air 12/09/17 13:24 36.3 80 16 101/66 92 Room Air 12/09/17 09:10 37.5 73 20 121/76 (91) 94 Room Air Notes Mental Status: alert / awake / arousable, participated in evaluation Pt Amnestic to Procedure: Yes Nausea / Vomiting: adequately controlled Pain: adequately controlled Airway Patency, RR, SpO2: stable & adequate BP & HR: stable & adequate Hydration State: stable & adequate Neuraxial Anesthesia: was administered, sensory block is resolving Anesthetic Complications: no major complications apparent
--- NOTE | 2017-12-09 13:55 | DIAGNOSTIC IMAGING REPORT ---
RIGHT KNEE 2 VIEWS History: Right total knee arthroplasty. Degenerative arthritis. Postop. FINDINGS: The patient is status post a right total knee arthroplasty. The hardware is intact. No fracture or dislocation. Skin blayne are in place. IMPRESSION: Right total knee arthroplasty. No evidence for hardware complication. Electronically signed by: Matteo Rojas M.D. 12/09/2017 1:54 PM Dictated Date/Time: 12/09/2017 1:52 PM
[2017-12-09] MEDS ORDERED: PHARMACY GLYCEMIC MGMT CONSULT PRN (15:15)
[2017-12-09] MEDS ORDERED: GLUCAGON FOR INJ 1 MG VIAL IM PRN (15:30)
[2017-12-09] MEDS ORDERED: DEXTROSE 50% 50 ML SYR IV PRN (15:30)
[2017-12-09] MEDS ORDERED: CARBOHYDRATES FOR HYPOGLYCEMIA PO PRN (15:30)
[2017-12-09] MEDS ORDERED: GLUCOSE 40% GEL 15 GM TUBE PO PRN (15:30)
[2017-12-09] MEDS ORDERED: GLUCOSE 10 TABS/TUBE PO PRN (15:30)
--- NOTE | 2017-12-09 15:32 | Pharmacy Progress Note ---
Glycemic Control Intl Consult Date of Service Dec 09, 2017. Scope Glycemic Pharmacist consulted by Rolo Gamez on 12/09/17 for glycemic control and to write orders per [facility] inpatient glycemic control protocol Objective Weight (Kilograms): 104.300 Accuchecks BSG (last 24hrs): Test 12/09/17 08:46 12/09/17 13:56 Bedside Glucose 130 mg/dl (70-90) 101 mg/dl (70-90) Recent Pertinent Medications Outpatient Anti-diabetic Regimen: * diet-controlled * A1c = 7.4 % 02/18/17 - ordered for 8/15 am Risk Factors for Insulin Resistance: * Recent Surgery: POD# 0 R-TKA Assessment & Plan ASSESSMENT: * 57 yr old T2DM diet controlled s/p R-TKA. Degree of outpatient glycemic control unknown. Last A1c from Jan 2017 was near goal. Updated A1c has been ordered for tomorrow. * Will target BSG less than 150 mg/dL to reduce the risk of post-operative complications/infection. * Will utilize SQ bolus insulin which is the recommended regimen for inpatient glycemic control. * Will initiate weight based insulin dosing for insulin mannie patient and titrate based on BSG trends. * Basal insulin will be added to regimen if BSGs are consistently above goal range. * I have elected not to utilize a carb ratio since patient was not administered any steroids and does not require insulin as an outpatient. PLAN FOR INPATIENT GLYCEMIC CONTROL: * Basal insulin: none * Correctional Insulin * NOVOLOG per scale ACHS or Q6hrs while NPO * Goal Range: Low 110 mg/dL - High 140 mg/dL * Correction Factor: 20 mg/dL/unit * Please note that the plan above was derived based on current level of insulin resistance and hospital stress. These recommendations are appropriate for inpatient admission only. Plan of care upon discharge will need to be reassessed to avoid potential outpatient hypo/hyperglycemia. Thank you.
[2017-12-09] MEDS: SODIUM CHLORIDE 0.9% 1000ML 1,000 ML IV SCH (15:35)
[2017-12-09] MEDS ORDERED: OXYC-609 PO (15:37)
[2017-12-09] MEDS ORDERED: HYDROmorphone INJ 2 MG/ML SYR/VIAL IV PRN ×2 (16:30→16:45)
--- NOTE | 2017-12-09 16:30 | Progress Note ---
Progress Note Date of Service Dec 09, 2017. Progress Note She is starting to experience some pain. No chest pains or shortness of breath. Surgical findings are reviewed and discussed. Postoperative x-rays show a well-positioned total knee without evidence of complication. 5 out of 5 ankle into plantarflexion and dorsiflexion strength normal sensation dressing clean and dry. She is afebrile her vital signs are stable. We reviewed her pain medication regimen. Her foot is warm with capillary refill less than 2 seconds. Pedal pulses are not palpable on the right. She does not have a palpable dorsalis pedis on the left but does have a 1+ posterior tib on the left. Pedal pulses both are dopplerable. Routine postop care.
[2017-12-09] MEDS ORDERED: OXYCODONE HCL IR 5 MG TAB (IMMEDIATE RELEASE) PO STA (16:36)
--- NOTE | 2017-12-09 16:40 | Orthopedic Progress Note ---
Orthopedic Progress Note Date of Service Dec 09, 2017. Subjective Reports: feeling well, Denies: complaints, chest pain, SOB, nausea / vomiting, light headedness, calf pain Additional Notes: Starting to have some pain in right knee Objective calves soft nontender, N/V intact, splint C/D/I, capillary refill less than 2 sec., dressing C/D/I, incision C/D/I, A&O x3, toes mobile Date Time Temp Pulse Resp B/P (MAP) Pulse Ox O2 Delivery O2 Flow Rate FiO2 12/09/17 15:45 36.9 88 16 148/85 (106) 94 Nasal Cannula 2.0 12/09/17 15:21 95 Nasal Cannula 2.0 12/09/17 15:15 36.9 75 16 117/77 (90) 95 Nasal Cannula 2.0 12/09/17 14:45 95 Nasal Cannula 2.0 12/09/17 14:45 37.1 66 16 114/74 (87) 95 Nasal Cannula 2.0 12/09/17 14:30 73 16 90/66 96 Nasal Cannula 2 12/09/17 14:15 59 15 101/52 96 Nasal Cannula 2 12/09/17 14:00 36.3 75 14 100/64 95 Nasal Cannula 2 12/09/17 13:50 68 14 109/68 96 Nasal Cannula 2 12/09/17 13:40 70 16 102/66 96 Nasal Cannula 2 12/09/17 13:30 80 18 112/67 96 Room Air 12/09/17 13:24 36.3 80 16 101/66 92 Room Air 12/09/17 09:10 37.5 73 20 121/76 (91) 94 Room Air Assessment & Plan Assessment: POD 0 - Right TKA Plan: Pain medicine as ordered Diet as ordered - tolerating regular diet. PT/OT to start tomorrow. Knee immobilizer/OOB as tolerated with walker and assistance today. Ice to right knee PRN Patient seen and evaluated by Dr. Cohen today. Will see patient in AM SS for disposition, plans to go home with home health.
[2017-12-09] MEDS ORDERED: OXYCODONE HCL IR 5 MG TAB (IMMEDIATE RELEASE) PO SCH (17:00)
[2017-12-09] MEDS: INSULIN ASPART 100 UNITS/ML 3 ML PEN SC SCH ×2 (17:15→20:38)
[2017-12-09] MEDS: OXYCODONE HCL IR 5 MG TAB (IMMEDIATE RELEASE) PO SCH ×2 (17:27→23:37)
[2017-12-09] MEDS: HYDROmorphone INJ 1 MG/ML SYR IV PRN (17:31)
[2017-12-09] MEDS: GABAPENTIN 800 MG TAB PO SCH ×2 (17:47→20:40)
[2017-12-09] MEDS ORDERED: TRANEXAMIC ACID INJ 1,000 MG in SODIUM CHLORIDE 0.9% 100ML 100 ML IV SCH (19:00)
[2017-12-09] MEDS: OXYCODONE HCL 10 MG TABCR (OXYCONTIN) PO SCH (20:39)
[2017-12-09] MEDS: FLUTICASONE/SALMETEROL (ADVAIR) 500/50 INH 14 PUFF INH SCH (20:40)
[2017-12-09] MEDS: DOCUSATE SODIUM 100 MG CAP PO SCH (20:40)
[2017-12-09] MEDS: ESCITALOPRAM OXALATE 20 MG TAB PO SCH (20:41)
[2017-12-09] MEDS: ROSUVASTATIN CALCIUM 20 MG TAB PO SCH (20:41)
[2017-12-09] MEDS: METOPROLOL SUCC 50MG EXT REL TAB PO SCH (20:41)
[2017-12-09] MEDS: ACETAMINOPHEN 500 MG TAB PO SCH (21:04)
[2017-12-09] MEDS: ENOXAPARIN 30 MG/0.3 ML SYR SQ SCH (21:05)
[2017-12-09] MEDS ORDERED: VANCOMYCIN IV 1,500 MG in SODIUM CHLORIDE 0.9% 500ML 500 ML IV SCH (22:00)
[2017-12-10] VITALS (13 sets, daily range): BP systolic 111–154; BP diastolic 67–79; PULSE 86–90; TEMP 36.6–38; O2SAT 55–97
[2017-12-10] MEDS: SODIUM CHLORIDE 0.9% 1000ML 1,000 ML IV SCH (04:11)
[2017-12-10] MEDS: OXYCODONE HCL IR 5 MG TAB (IMMEDIATE RELEASE) PO SCH ×2 (05:42→18:00)
[2017-12-10] MEDS: LEVOTHYROXINE 150 MCG TAB PO SCH (05:42)
[2017-12-10] MEDS: ACETAMINOPHEN 500 MG TAB PO SCH ×3 (05:43→20:41)
[2017-12-10] MEDS: HYDROmorphone INJ 1 MG/ML SYR IV PRN (05:44)
[2017-12-10 06:42] LABS: HEMATOCRIT 38.5 % (37-47); HEMOGLOBIN 12.1 g/dL (12.0-16.0); MEAN CELL VOLUME 87.7 fL (80-100); MEAN CORPUSCULAR HEMOGLOBIN 27.6 pg (25-34); MEAN CORPUSCULAR HGB CONC 31.4 g/dl (32-36); MEAN PLATELET VOLUME 10.2 fL (7.4-10.4); PLATELET COUNT 330 K/uL (130-400); RED CELL DISTRIBUTION WIDTH CV 14.7 % (11.5-14.5); RED CELL DISTRIBUTION WIDTH SD 47.5 fL (36.4-46.3); WHITE BLOOD COUNT 18.48 K/uL (4.8-10.8)
[2017-12-10 07:06] LABS: CALCIUM 8.5 mg/dl (8.5-10.1); CREATININE 0.97 mg/dl (0.60-1.20); POTASSIUM 4.6 mmol/L (3.5-5.1)
[2017-12-10 07:17] LABS: HEMOGLOBIN A1C 7.4 % (4.5-5.6)
[2017-12-10] MEDS ORDERED: ENOXAPARIN 30 MG/0.3 ML SYR SQ SCH (08:00)
--- NOTE | 2017-12-10 08:48 | Anesthesiology Progress Note ---
Anesthesia Post Op Note Date & Time Dec 10, 2017 at 08:47 Vital Signs Pain Intensity: 5.0 Vital Signs Past 12 Hours Date Time Temp Pulse Resp B/P (MAP) Pulse Ox O2 Delivery O2 Flow Rate FiO2 12/10/17 08:00 97 Nasal Cannula 2.0 12/10/17 07:27 94 Nasal Cannula 3.0 12/10/17 07:25 85 Nasal Cannula 2.0 12/10/17 07:21 92 Nasal Cannula 2.0 12/10/17 07:19 93 Nasal Cannula 4.0 12/10/17 07:16 37.0 86 20 124/79 (94) 55 Room Air 12/10/17 04:00 36.6 88 16 122/72 (89) 94 Nasal Cannula 2.0 12/09/17 23:21 36.7 97 18 135/78 (97) 94 Nasal Cannula 2.0 12/09/17 21:22 36.4 112 16 119/76 (90) 90 Nasal Cannula 2.0 12/09/17 20:50 Nasal Cannula 2.0 Notes Mental Status: alert / awake / arousable, participated in evaluation Pt Amnestic to Procedure: Yes Nausea / Vomiting: adequately controlled Pain: adequately controlled Airway Patency, RR, SpO2: stable & adequate BP & HR: stable & adequate Hydration State: stable & adequate Neuraxial Anesthesia: sensory block resolved Anesthetic Complications: no major complications apparent
[2017-12-10] MEDS: INSULIN ASPART 100 UNITS/ML 3 ML PEN SC SCH ×4 (09:23→20:36)
[2017-12-10] MEDS: PANTOprazole SOD 40 MG TAB PO SCH (09:24)
[2017-12-10] MEDS: MONTELUKAST SOD 10 MG TAB PO SCH (09:24)
[2017-12-10] MEDS: FLUTICASONE/SALMETEROL (ADVAIR) 500/50 INH 14 PUFF INH SCH ×2 (09:24→20:41)
[2017-12-10] MEDS: MULTIVITAMIN TAB PO SCH (09:25)
[2017-12-10] MEDS: ENOXAPARIN 30 MG/0.3 ML SYR SQ SCH ×2 (09:25→20:41)
[2017-12-10] MEDS: DOCUSATE SODIUM 100 MG CAP PO SCH ×2 (09:25→20:41)
[2017-12-10] MEDS: GABAPENTIN 800 MG TAB PO SCH ×4 (09:26→20:41)
--- NOTE | 2017-12-10 09:35 | Orthopedic Progress Note ---
Orthopedic Progress Note Date of Service Dec 10, 2017. Subjective Post OP Day: 1 Reports: complaints, Denies: chest pain, SOB, nausea / vomiting, light headedness, calf pain Additional Notes: States that her pain is "unbearable". She doesn't that her pain is being adequately controlled. She feels that she needs more pain medication. She slept well last night, she states that it was because she didn't sleep more than 4 hours the days before leading up to surgery. She would like her pain medication adjusted. She states that she was taking oxycodone IR 30mg four times a day about a month prior to her admission. She states that a few weeks before surgery she decreased to 20mg four times a day in hopes that she would decrease her tolerance to it so her post op pain would be better controlled. She thinks that she needs to 30mg four times a day while she is here. She also had two doses of Dilaudid, which "hasn't done anything for her pain". Objective calves soft nontender, N/V intact, capillary refill less than 2 sec., dressing C /D/I, A&O x3 Distal pulses dopplerable. Foot is warm, cap refill brisk, tolerates ankle ROM , strength 5/5. Unable to SLR right leg as expected, distal sensation normal. Date Time Temp Pulse Resp B/P (MAP) Pulse Ox O2 Delivery O2 Flow Rate FiO2 12/10/17 08:00 97 Nasal Cannula 2.0 12/10/17 07:27 94 Nasal Cannula 3.0 12/10/17 07:25 85 Nasal Cannula 2.0 12/10/17 07:21 92 Nasal Cannula 2.0 12/10/17 07:19 93 Nasal Cannula 4.0 12/10/17 07:16 37.0 86 20 124/79 (94) 55 Room Air 12/10/17 04:00 36.6 88 16 122/72 (89) 94 Nasal Cannula 2.0 12/09/17 23:21 36.7 97 18 135/78 (97) 94 Nasal Cannula 2.0 12/09/17 21:22 36.4 112 16 119/76 (90) 90 Nasal Cannula 2.0 12/09/17 20:50 Nasal Cannula 2.0 12/09/17 17:51 36.5 94 17 112/71 (85) 95 Nasal Cannula 2.0 12/09/17 16:49 36.5 85 16 146/79 (101) 93 Nasal Cannula 2.0 12/09/17 15:45 36.9 88 16 148/85 (106) 94 Nasal Cannula 2.0 12/09/17 15:21 95 Nasal Cannula 2.0 12/09/17 15:15 36.9 75 16 117/77 (90) 95 Nasal Cannula 2.0 12/09/17 14:45 95 Nasal Cannula 2.0 12/09/17 14:45 37.1 66 16 114/74 (87) 95 Nasal Cannula 2.0 12/09/17 14:30 73 16 90/66 96 Nasal Cannula 2 12/09/17 14:15 59 15 101/52 96 Nasal Cannula 2 12/09/17 14:00 36.3 75 14 100/64 95 Nasal Cannula 2 12/09/17 13:50 68 14 109/68 96 Nasal Cannula 2 12/09/17 13:40 70 16 102/66 96 Nasal Cannula 2 12/09/17 13:30 80 18 112/67 96 Room Air 12/09/17 13:24 36.3 80 16 101/66 92 Room Air Laboratory Results 24 Hours: Test 12/10/17 05:50 Hematocrit 38.5 % Hemoglobin 12.1 g/dL Assessment & Plan Assessment: POD 1 - Right TKA Plan: Discussed with Dr. Cohen her concerns about her pain medication. After review we decided to increase her Oxy IR to 30mg QID (q6h), continue the oxy IR 10mg for breakthrough pain, continue the oxycontin 10mg BID and increase her Dilaudid to 2mg every 2 hours. Diet as ordered - tolerating regular diet. PT/OT to start today. Knee immobilizer/OOB as tolerated with walker and assistance today. Ice to right knee PRN SS for disposition, plans to go home with home health. Her son will also be home with her to assist with needs as well. Plan for discharge tomorrow, will stay today for continued pain management. Will continue to follow, call with questions.
[2017-12-10] MEDS: OXYCODONE HCL 10 MG TABCR (OXYCONTIN) PO SCH ×2 (09:50→20:42)
[2017-12-10] MEDS ORDERED: HYDROmorphone INJ 2 MG/ML SYR/VIAL IM PRN (11:45)
[2017-12-10] MEDS ORDERED: OXYCODONE HCL IR 5 MG TAB (IMMEDIATE RELEASE) PO STA (12:21)
--- NOTE | 2017-12-10 13:15 | Pharmacy Progress Note ---
Pharmacy Glycemic Short Note 2 Date of Service Dec 10, 2017. OUTPATIENT ANTIDIABETIC REGIMEN: * None - diet controlled * A1c 7.4%- 12/10/17 Item Value Date Time Bedside Glucose 130 mg/dl H 12/09/17 0846 Bedside Glucose 101 mg/dl H 12/09/17 1356 Bedside Glucose 120 mg/dl H 12/09/17 1714 Bedside Glucose 171 mg/dl H 12/09/17 2031 Bedside Glucose 142 mg/dl H 12/10/17 0739 Bedside Glucose 147 mg/dl H 12/10/17 1223 ASSESSMENT: * Alexis is a 57 yr old diet controlled T2DM that is POD #1 s/p R-TKA. * Will target BSG less than 150 mg/dL to reduce the risk of post-operative complications/infection. * Alexis received only 1 unit of insulin yesterday with one BSG > 150 mg/dL * Patient has not required basal insulin. Will continue to utilize SQ bolus insulin only. * I have elected not to utilize a carb ratio since patient was not administered any steroids and does not require insulin as an outpatient. PLAN FOR INPATIENT GLYCEMIC CONTROL: * Basal insulin * none * Bolus insulin * NovoLog per scale ACHS or Q6hrs while NPO * Goal Range: Low 110 mg/dL - High 140 mg/dL * Correction Factor: 20 mg/dL/unit PLAN FOR DISCHARGE: * A1c of 7.4% indicates diagnosis of diabetes per ADA Guidelines (patient currently diet controlled per physician notes) * Recommend starting metformin ER 500 mg once daily with dinner * can increase dose by 500 mg per week to goal of 1000 mg PO BID * administer with meals to limit GI side effects * recommend supplementation with vitamin B12 for chronic metformin use
[2017-12-10] MEDS ORDERED: NALOXONE HCL 0.4 MG/1 ML VIAL/CARP IV PRN (17:45)
[2017-12-10] MEDS ORDERED: HYDROmorphone INJ 1 MG/ML SYR IV PRN (17:45)
[2017-12-10] MEDS ORDERED: NALOXONE HCL 0.4 MG/1 ML VIAL/CARP IM PRN (17:45)
[2017-12-10] MEDS ORDERED: OXYCODONE HCL IR 30 MG TAB (IMMEDIATE RELEASE) PO SCH (18:00)
--- NOTE | 2017-12-10 18:11 | Progress Note ---
Progress Note Date of Service Dec 10, 2017. Progress Note Came to see patient for evening rounds. She was difficult to arouse. Her breathing was at a low rate. When aroused she indicated that she was going through something that happened previously where she was thought to have had a stroke but did not. She went through a somewhat rambling several minute conversation but did not arrive at a conclusion. I reviewed the prior admission and she did not have a stroke. There is a concern about her medication. She reports things are going well with her knee. Several times she denied that it was the medicine meaning the narcotics that were causing this. She knew where she was but was a little bit fuzzy about why she was here and she did not know what the date was. She in general appears to be confused a little bit agitated emotional slightly confused. Additionally she falls asleep during the conversation and even falls asleep while eating. I removed her tray of food. Cranial nerves II through XII are intact she can move both upper extremities and her left lower extremity without difficulty she has grossly intact sensation throughout with good tumbling barrel painter strength. She can flex and extend the ankle on her right leg. Her dressing is clean and dry. She did have a couple oxygen saturations which dropped into the 50s and 70s today. At home she reported being on oxycodone 20 mg every 6 hours. She was continued on that medicine and we added 10 mg OxyContin every 12 and Dilaudid 1 mg. This morning she was adamant that this was inadequate. Her mental status at that point was normal per gender for 's report. She had asked that her medication be increased to 30 mg of oxycodone every 6 and other adjustments as well. We increase the Dilaudid to 2 mg q. 2 but she did not use any of this today. The oxycodone was increased to 30 mg every 6 hours. At this time I will decrease the oxycodone to 20 mg. I will continue the OxyContin 10 mg and Dilaudid at 1 mg. Will consult with medicine regarding potential sedation secondary to narcotics. Restart IV.
--- NOTE | 2017-12-10 19:39 | Medical Consult ---
Consultation Date of Consultation: Dec 10, 2017. Attending Physician: Lele Cohen M.D. History of Present Illness 57 y/o F Hx morbid obesity, HTN, HPL, CAD, DM II, osteoarthritis of knees and chronic lower back and knee pain with opiate dependence. Presented for elective R TKA. She had been recovering well although she regularly complained of pain. Her opiate dose was increased and she became excessively somnolent and confused following. She was difficult to arouse and therefore an emergent medical consult was requested. The pt was awake and oriented when we arrived to examine her. Past Medical/Surgical History 1) History of abdominal wall abscess 2) CAD 3) Chronic low back pain - opiate-dependence 4) History of acute kidney failure 5) Anxiety 6) Asthma 7) Osteoarthritis 8) Depression 9) DM II 10) Esophageal reflux disease 11) History of DVT/Pulmonary embolism 12) Hyperlipidemia 13) Hypertension 14) Hypothyroidism 15) Morbid obesity 16) Osteoporosis Surgical Problems: 1) Appendectomy 2) Hernia repair 3) Cholecystectomy 4) Angiography August 2016 5) Arthroplasty of thumb joint 6) Arthroscopy of knee with medial meniscectomy 2011 7) Carpal tunnel release 2009 8) Closed reduction of ulna 2009 9) Kyphoplasty 10) History of rotator cuff repair 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 Family History Asthma Diabetes mellitus FHx: cancer (skin) FHx: heart failure Gallbladder disease Heart disease Hypertension Kidney stones Social History Smoking Status: Former Smoker Smokeless Tobacco Use: No Alcohol Use: none Drug Use: none Marital Status: single Housing Status: lives with family Occupation Status: unemployed Allergies Coded Allergies: Aspirin (Verified Allergy, Severe, SHORT OF BREATH, 12/09/17) Cephalexin (Verified Allergy, Severe, EDEMA OF FACE,LIPS,TONGUE, 12/09/17) Ketorolac Tromethamine (Verified Allergy, Severe, SHORTNESS OF BREATH, ) Latex2 -Systemic Allergic Response (Verified Allergy, Severe, DIFFICULTY BREATHING, 12/09/17) NSAIDs (Verified Allergy, Severe, SHORT OF BREATH, 12/09/17) Sulfa Antibiotics (Verified Allergy, Unknown, UNKNOWN- HAD RXN WHEN LITTLE , 12/09/17) Amitriptyline (Verified Adverse Reaction, Severe, NEURO COMPLICATIONS, ) Simvastatin (Verified Adverse Reaction, Intermediate, myalgias, 12/09/17) Metformin (Verified Adverse Reaction, Mild, GI SYMPTOMS, 12/09/17) Uncoded Allergies: adhesive (Allergy, Mild, rash,blister, 01/11/17) SORBAVIEW adhesive dressing Current Inpatient Medications Current Inpatient Medications Medications (Trade) Dose Ordered Sig/Sid Route Start Time Stop Time Status Last Admin Dose Admin Miscellaneous (Remove Clonidine Patch) 1 ea Q72H N/A 12/12/17 06:00 12/12/17 06:01 Oxycodone HCl (Oxycontin Tab) 10 mg Q12 PO 12/09/17 21:00 12/23/17 20:59 12/10/17 09:50 10 MG Acetaminophen (Tylenol Tab) 1,000 mg Q8H PO 12/09/17 22:00 01/08/18 21:59 12/10/17 14:38 1,000 MG Magnesium Hydroxide (Milk Of Magnesia Susp) 30 ml Q6H PRN PO 12/09/17 13:30 01/08/18 13:29 Bisacodyl (Dulcolax Supp) 10 mg DAILY PRN [place] 12/09/17 13:30 01/08/18 13:29 Docusate Sodium (coLACE CAP) 100 mg BID PO 12/09/17 21:00 01/08/18 20:59 12/10/17 09:25 100 MG Multivitamins (Multivitamin Tab) 1 tab QAM PO 12/10/17 09:00 01/09/18 08:59 12/10/17 09:25 1 TAB Ondansetron HCl (Zofran Inj) 4 mg Q6H PRN IV 12/09/17 13:30 01/08/18 13:29 Metoclopramide HCl (Reglan Inj) 10 mg Q6H PRN IV 12/09/17 13:30 01/08/18 13:29 Pantoprazole Sodium (Protonix Tab) 40 mg QAM PO 12/10/17 09:00 12/13/17 09:01 12/10/17 09:24 40 MG Albuterol (Ventolin Hfa Inhaler) 2 puffs QID PRN INH 12/09/17 13:30 01/08/18 13:29 Cetirizine HCl (zyrTEC TAB) 10 mg DAILY PRN PO 12/09/17 13:30 01/08/18 13:29 Clopidogrel Bisulfate (plAVix TAB) 75 mg QPM PO 12/10/17 21:00 01/09/18 20:59 Escitalopram Oxalate (Lexapro Tab) 40 mg HS PO 12/09/17 21:00 01/08/18 20:59 12/09/17 20:41 40 MG Salmeterol Xinafoate/ Fluticasone (Advair Diskus 500/50 Inh) 1 puff BID INH 12/09/17 21:00 01/08/18 20:59 12/10/17 09:24 1 PUFF Fluticasone Propionate (Flonase Nasal [place]) 2 sprays DAILY PRN [place] 12/09/17 13:30 01/08/18 13:29 Gabapentin (Neurontin Tab) 800 mg QID PO 12/09/17 17:00 01/08/18 16:59 12/10/17 18:10 800 MG Levothyroxine Sodium (Synthroid Tab) 150 mcg DAILYBB PO 12/10/17 06:00 01/09/18 05:59 12/10/17 05:42 150 MCG Montelukast Sodium (Singulair Tab) 10 mg QAM PO 12/10/17 09:00 01/09/18 08:59 12/10/17 09:24 10 MG Nitroglycerin (Nitrostat Tab) 0.4 mg PRN PRN [place] 12/09/17 13:30 01/08/18 13:29 Rosuvastatin Calcium (Crestor Tab) 20 mg HS PO 12/09/17 21:00 01/08/18 20:59 12/09/17 20:41 20 MG Metoprolol Succinate (Toprol Xl Tab) 100 mg HS PO 12/09/17 21:00 01/08/18 20:59 12/09/17 20:41 100 MG Oxycodone HCl (Roxicodone Immediate Rel Tab) 10 mg Q4H PRN PO 12/09/17 13:30 12/23/17 13:29 12/10/17 08:17 10 MG Miscellaneous Information (Consult Glycemic Management Pharmacy) 1 ea UD PRN N/A 12/09/17 15:15 01/08/18 15:14 Insulin Aspart (novoLOG ASPART) SLIDING SCALE ACHS SC 12/09/17 17:15 01/08/18 17:14 12/10/17 12:56 1 UNITS Glucose (Glucose 40% Gel) 15-30 GRAMS 15 GRAMS... UD PRN PO 12/09/17 15:30 01/08/18 15:29 Glucose (Glucose Chew Tab) 4-8 Tablets 4 Tabl... UD PRN PO 12/09/17 15:30 01/08/18 15:29 Dextrose (Dextrose 50% 50ML Syringe) 25-50ML 25ML FOR ... UD PRN IV 12/09/17 15:30 01/08/18 15:29 Glucagon (Glucagon Inj) 1 mg UD PRN IM 12/09/17 15:30 01/08/18 15:29 Carbohydrates (Carbohydrates For Hypoglycemia) 15-30 GRAMS 15 grams if BSG 54-69... UD PRN PO 12/09/17 15:30 01/08/18 15:29 Enoxaparin Sodium (Lovenox Inj) 30 mg Q12H SQ 12/09/17 22:00 01/06/18 21:59 12/10/17 09:25 30 MG Hydromorphone HCl (Dilaudid Inj) 2 mg Q2H PRN IM 12/10/17 11:45 12/24/17 11:44 Naloxone HCl (Narcan Inj) 0.4 mg ONE PRN IM 12/10/17 17:45 01/09/18 17:44 Hydromorphone HCl (Dilaudid Inj) 1 mg Q2H PRN IV 12/10/17 17:45 12/23/17 16:29 Oxycodone HCl (Roxicodone Immediate Rel Tab) 20 mg Q6H PO 12/10/17 18:00 12/23/17 17:59 Naloxone HCl (Narcan Inj) 0.4 mg ONE PRN IV 12/10/17 17:45 01/09/18 17:44 Review of Systems She denied complaints other than knee and back pain at the time of our evaluation Constitutional: No fever, No chills Eyes: No worsening of vision ENT: No hearing loss, No nasal symptoms Respiratory: No cough, No sputum, No wheezing Cardiovascular: No chest pain Abdomen: No pain, No vomiting Musculoskeletal: + joint pain Genitourinary - Female: No dysuria, No urinary frequency Neurologic: No memory loss, No paralysis Psychiatric: + anxiety, No depression symptoms Endocrine: No fatigue Hematologic / Lymphatic: No abnormal bleeding/bruising Integumentary: No rash Allergic / Immunologic: No environmental allergies Physical Exam Date Time Temp Pulse Resp B/P (MAP) Pulse Ox O2 Delivery O2 Flow Rate FiO2 12/10/17 16:29 37.3 12/10/17 15:59 38.0 88 20 154/67 (96) 90 Nasal Cannula 3.0 12/10/17 15:50 95 Nasal Cannula 2.0 12/10/17 12:33 12 119/68 (85) 94 Nasal Cannula 2.0 12/10/17 12:27 36.8 90 12 77 Room Air 12/10/17 08:00 97 Nasal Cannula 2.0 12/10/17 07:27 94 Nasal Cannula 3.0 12/10/17 07:25 85 Nasal Cannula 2.0 12/10/17 07:21 92 Nasal Cannula 2.0 12/10/17 07:19 93 Nasal Cannula 4.0 12/10/17 07:16 37.0 86 20 124/79 (94) 55 Room Air 12/10/17 04:00 36.6 88 16 122/72 (89) 94 Nasal Cannula 2.0 12/09/17 23:21 36.7 97 18 135/78 (97) 94 Nasal Cannula 2.0 12/09/17 21:22 36.4 112 16 119/76 (90) 90 Nasal Cannula 2.0 12/09/17 20:50 Nasal Cannula 2.0 General Appearance: WD/WN, no apparent distress Head: normocephalic ENT: normal ENT inspection, pharynx normal Neck: supple, + pertinent finding (cannot evaluate JVD) Respiratory/Chest: chest non-tender, lungs clear, normal breath sounds Cardiovascular: regular rate, rhythm, no edema, no gallop Abdomen/GI: normal bowel sounds, non tender, soft Back: normal inspection, no CVA tenderness Extremities/Musculoskelatal: no calf tenderness, + pedal edema, + pertinent finding (R knee is concealed) Neurologic/Psych: skin toggler II-XII nml as tested, no motor/sensory deficits, alert, oriented x 3 Skin: normal color, warm/dry Laboratory Results Last 24 Hours Test 12/09/17 20:31 12/10/17 05:50 12/10/17 07:39 12/10/17 12:23 Bedside Glucose 171 mg/dl 142 mg/dl 147 mg/dl White Blood Count 18.48 K/uL Red Blood Count 4.39 M/uL Hemoglobin 12.1 g/dL Hematocrit 38.5 % Mean Corpuscular Volume 87.7 fL Mean Corpuscular Hemoglobin 27.6 pg Mean Corpuscular Hemoglobin Concent 31.4 g/dl RDW Standard Deviation 47.5 fL RDW Coefficient of Variation 14.7 % Platelet Count 330 K/uL Mean Platelet Volume 10.2 fL Sodium Level 135 mmol/L Potassium Level 4.6 mmol/L Chloride Level 105 mmol/L Carbon Dioxide Level 21 mmol/L Anion Gap 9.0 mmol/L Blood Urea Nitrogen 15 mg/dl Creatinine 0.97 mg/dl Est Creatinine Clear Calc Drug Dose 70.8 ml/min Estimated GFR () 74.1 Estimated GFR (Non- 63.9 BUN/Creatinine Ratio 15.2 Random Glucose 154 mg/dl Estimated Average Glucose 166 mg/dl Hemoglobin A1c 7.4 % Calcium Level 8.5 mg/dl Test 12/10/17 17:18 Bedside Glucose 131 mg/dl Assessment & Plan 57 y/o F Hx morbid obesity, HTN, HPL, CAD, DM II, osteoarthritis of knees and chronic lower back and knee pain with opiate dependence. Presented for elective R TKA. She had been recovering well although she regularly complained of pain. Her opiate dose was increased and she became excessively somnolent and confused following. She was difficult to arouse and therefore an emergent medical consult was requested. The pt was awake and oriented when we arrived to examine her. 1) AMS/somnolence - mild resp depression - presumed due to increase in opiate dose. The pt ddid not require Narcan when we saw her. Her Opiate dose was subsequently reduced. No additional measures were required. We followed up additionally in a few hours and her status remained stable. 2) CAD - no evidence of acute event or related symptoms - She remains on Plavix , B jenny, Statin 3) DM - Sliding scale coverage provided - no evidence of hypoglycemia with AMS - cont as scheduled 4) As an aside - it was noted that the pt was snoring and considering her morbid obesity, we would presume RACHEL and a degree of hypoventilation at baseline. This could further aggravate her resp depression with opiates. If her AMS recurs, it might be worth checking a blood gas for C02 retention. Total time for this admit including examination of pt, review of labs, extensive medial history and medication list - review of ortho notes - 37 min
[2017-12-10] MEDS: CLOPIDOGREL BISULFATE 75 MG TAB PO SCH (21:42)
[2017-12-10] MEDS: METOPROLOL SUCC 50MG EXT REL TAB PO SCH (21:42)
[2017-12-10] MEDS: ESCITALOPRAM OXALATE 20 MG TAB PO SCH (21:43)
[2017-12-10] MEDS: ROSUVASTATIN CALCIUM 20 MG TAB PO SCH (21:43)
--- NOTE | 2017-12-10 22:30 | Progress Note ---
Progress Note Date of Service Dec 10, 2017. Progress Note Asked by Dr. Cohen to assist with patient's pain management. She is a 57yo female with multiple medical problems, chronic back and knee pain s/p right TKA performed yesterday. Patient reports being on Oxycontin 10mg po BID as well as Oxycodone 30mg po q 6 hours at home. Unclear if she is compliant with this regimen - she states that sometimes she has more pills and sometimes she runs out too soon, all depending on how her back is feeling. Patient was administered 30mg of Oxycodone earlier today after which she became relatively unresponsive, falling asleep while eating, requiring deep sternal rub. She has not received pain medication since and states that her pain at present is unbearable. On physical exam she is afebrile, hemodynamically stable, continuous pulse oximetry in place with adequate SaO2 on 3L NC General: patient appears restless, talking on speaker phone with her friend who is a nurse, NAD, nontoxic in appearance Skin: warm, dry, ecchymosis on LUE, Right knee dressing in place, C/D/I HEENT: NC/AT, PERRL, EOMI, anicteric sclera, poor dentition, moist mucus membranes Heart: +S1/S2, regular Lungs: CTA, no rales/rhonchi or wheezes Abd: +BS, soft, NT/ND Ext: warm, well perfused, no clubbing, cyanosis or edema Neuro: AA&Ox4, speech clear and fluent, no facial droop. CN II - XII grossly intact. Sensation diminished on anterior abdomen and bilateral LE R >L which is reported to be chronic and unchanged. MS 5/5 in UE/LE bilaterally Labs and images reviewed. Assessment/Plan - 57yo female with multiple medical problems, chronic opioid use for LBP and knee pain s/p right TKA POD #1. Patient became unresponsive after receiving dose of Oxycodone 30mg po earlier today. She is in pain and is somewhat upset because she does not feel that her sleepiness/unresponsiveness was secondary to her pain medication. It is difficult to ascertain how compliant she is with her home regimen. Opioids are managed by her PCP -Will discontinue her sustained release opioids for now - DC Oxycontin 10mg po BID. Patient states that she doesn't need them and most likely is not taking them at home -Oxycodone 20mg po q 6 hours -Dilaudid 1mg IV q 2 hours PRN breakthrough -Tylenol 1000mg IV q 8 -Lidoderm patch to low back -Consultation with pain management may be helpful for further medication adjustments and to assist with discharge regimen and pain followup Thank you. Please do not hesitate to contact us with additional questions or concerns.
[2017-12-11] MEDS: OXYCODONE HCL IR 5 MG TAB (IMMEDIATE RELEASE) PO SCH ×2 (00:15→06:47)
[2017-12-11] MEDS: LEVOTHYROXINE 150 MCG TAB PO SCH (06:26)
[2017-12-11] MEDS: ACETAMINOPHEN 500 MG TAB PO SCH ×3 (06:27→22:00)
[2017-12-11 07:24] LABS: BASO % 0.3 %; BASO ABS # 0.05 K/uL (0-0.2); EOS % 2.4 %; EOS ABS # 0.39 K/uL (0-0.5); HEMOGLOBIN 10.1 g/dL (12.0-16.0); IG# 0.05 K/uL (0.00-0.02); LYMPH % 15.6 %; LYMPH ABS # 2.49 K/uL (1.2-3.4); MEAN CELL VOLUME 87.7 fL (80-100); MEAN CORPUSCULAR HEMOGLOBIN 27.7 pg (25-34); MEAN CORPUSCULAR HGB CONC 31.6 g/dl (32-36); MEAN PLATELET VOLUME 9.8 fL (7.4-10.4); MONO ABS # 1.92 K/uL (0.11-0.59); NEUT % 69.4 %; NEUT ABS # 11.09 K/uL (1.4-6.5); PLATELET COUNT 302 K/uL (130-400); RED CELL DISTRIBUTION WIDTH CV 14.6 % (11.5-14.5); RED CELL DISTRIBUTION WIDTH SD 47.1 fL (36.4-46.3); WHITE BLOOD COUNT 15.99 K/uL (4.8-10.8)
[2017-12-11 07:50] VITALS: O2SAT 94
[2017-12-11 07:55] LABS: CREATININE 1.02 mg/dl (0.60-1.20)
[2017-12-11 07:56] LABS: CALCIUM 8.7 mg/dl (8.5-10.1); POTASSIUM 4.3 mmol/L (3.5-5.1)
[2017-12-11] MEDS: INSULIN ASPART 100 UNITS/ML 3 ML PEN SC SCH ×4 (08:00→22:04)
[2017-12-11 08:16] VITALS: BP 113/69; PULSE 90; TEMP 37.3; O2SAT 92
[2017-12-11] MEDS: FLUTICASONE/SALMETEROL (ADVAIR) 500/50 INH 14 PUFF INH SCH ×2 (08:47→20:45)
[2017-12-11] MEDS: MULTIVITAMIN TAB PO SCH (08:50)
[2017-12-11] MEDS: PANTOprazole SOD 40 MG TAB PO SCH (08:51)
[2017-12-11] MEDS: LIDODERM (LIDOCAINE) PATCH 5% TD SCH (08:53)
[2017-12-11] MEDS: MONTELUKAST SOD 10 MG TAB PO SCH (08:53)
[2017-12-11] MEDS ORDERED: OXYCODONE HCL IR 5 MG TAB (IMMEDIATE RELEASE) PO PRN (09:15)
--- NOTE | 2017-12-11 09:58 | DIAGNOSTIC IMAGING REPORT ---
CHEST ONE VIEW PORTABLE CLINICAL HISTORY: hypoxia disc COMPARISON STUDY: 05/18/2017 FINDINGS: Interval increase in prominence of the mid mediastinal soft tissues. Lungs otherwise appear clear. Diaphragms smooth. There are no focal infiltrates. IMPRESSION: Increased mid mediastinal prominence. Although most likely related to vascular shadows, CT of the chest with intravenous contrast enhancement is recommended to exclude adenopathy. The above report was generated using voice recognition software. It may contain grammatical, syntax or spelling errors. Electronically signed by: Lionel Alexander M.D. 12/11/2017 9:57 AM Dictated Date/Time: 12/11/2017 9:55 AM
[2017-12-11] MEDS: GABAPENTIN 800 MG TAB PO SCH ×4 (10:22→20:48)
[2017-12-11] MEDS: DOCUSATE SODIUM 100 MG CAP PO SCH ×2 (10:22→20:47)
[2017-12-11] MEDS: ENOXAPARIN 30 MG/0.3 ML SYR SQ SCH ×2 (10:23→22:02)
--- NOTE | 2017-12-11 10:46 | Pain Management Consultation ---
Pain Management Consultation Date of Consultation Dec 11, 2017. Reason for Consultation Assist with medication management Pain Location 1 - 2 - History Mrs. Cummings is a morbidly obese 57-year-old white female who was admitted for elective right sided TKA per Dr. Cohen to address chronic knee pain complaints related to DJD. The patient has chronic lumbago and has been on chronic opiate therapy in the outpatient setting per her family physician. There appears to have been some confusion upon her admission of her chronic outpatient opiate therapy of whether she was taking long-acting opiates or only short acting opiate therapy. Review of her PDMP appears to indicate recent prescriptions for oxycodone immediate release 20 mg 120 tablets obtained on 11/[address] Norberto Anderson as well as a prescription for oxycodone/ acetaminophen 5/325 mg 12 tablets written on 12/02/2017 per Belen Pineda. The patient was given OxyContin 10 mg twice daily during hospitalization as well as OxyIR 20 mg every 6 hours initially which was then transitioned to oxycodone 30 mg every 6 hours. She reported poor pain control but also experienced episode of somnolence and some confusion with difficulty to arouse with concern over opiate contribution. OxyContin has since been discontinued and she was transitioned back to her chronic oxycodone 20 mg every 6 hours for as needed breakthrough pain. The patient is reporting her pain is poorly controlled in the knee, rating her pain at a 7-8/10. The patient reports that her chronic low back pain is tolerable at this time. She denies a radicular component to her symptoms. The patient is intermittently weepy throughout the visit expressing concern that the nursing staff believes that she is "drug seeking". Patient has no further constitutional complaints at this time. Plan of care discussed with Dr. Belen Wadsworth. Past Medical/Surgical History (1) Right knee DJD (2) Abdominal pain (3) Hypotension (4) Hypotension (5) Dehydration (6) Contusion of multiple sites (7) History of chronic back pain (8) Left wrist pain (9) Right flank pain (10) Foot pain (11) CHI (closed head injury) (12) Lumbar strain (13) Asthma (14) Contusion of third finger, right (15) Post concussion syndrome (16) Asthmatic bronchitis (17) Wrist pain (18) Biliary obstruction (19) Elevated LFTs (20) Left rib fracture (21) UTI (urinary tract infection) (22) Pyelonephritis (23) SIRS (systemic inflammatory response syndrome) (24) Hx of hernia repair (25) Hx of appendectomy Family History Asthma Diabetes mellitus FHx: cancer (skin) FHx: heart failure Gallbladder disease Heart disease Hypertension Kidney stones Social / Work History Smoking Status: Former smoker Smokeless Tobacco Use: No Alcohol Use: none Drug Use: none Marital Status: single Housing Status: lives with family Occupation: unemployed Allergies Coded Allergies: Aspirin (Verified Allergy, Severe, SHORT OF BREATH, 12/09/17) Cephalexin (Verified Allergy, Severe, EDEMA OF FACE,LIPS,TONGUE, 12/09/17) Ketorolac Tromethamine (Verified Allergy, Severe, SHORTNESS OF BREATH, ) Latex2 -Systemic Allergic Response (Verified Allergy, Severe, DIFFICULTY BREATHING, 12/09/17) NSAIDs (Verified Allergy, Severe, SHORT OF BREATH, 12/09/17) Sulfa Antibiotics (Verified Allergy, Unknown, UNKNOWN- HAD RXN WHEN LITTLE , 12/09/17) Amitriptyline (Verified Adverse Reaction, Severe, NEURO COMPLICATIONS, ) Simvastatin (Verified Adverse Reaction, Intermediate, myalgias, 12/09/17) Metformin (Verified Adverse Reaction, Mild, GI SYMPTOMS, 12/09/17) Uncoded Allergies: adhesive (Allergy, Mild, rash,blister, 01/11/17) SORBAVIEW adhesive dressing Medications Current Inpatient Medications Medications (Trade) Dose Ordered Sig/Sid Route Start Time Stop Time Status Last Admin Dose Admin Miscellaneous (Remove Clonidine Patch) 1 ea Q72H N/A 12/12/17 06:00 12/12/17 06:01 Acetaminophen (Tylenol Tab) 1,000 mg Q8H PO 12/09/17 22:00 01/08/18 21:59 12/11/17 06:27 1,000 MG Magnesium Hydroxide (Milk Of Magnesia Susp) 30 ml Q6H PRN PO 12/09/17 13:30 01/08/18 13:29 Bisacodyl (Dulcolax Supp) 10 mg DAILY PRN [place] 12/09/17 13:30 01/08/18 13:29 Docusate Sodium (coLACE CAP) 100 mg BID PO 12/09/17 21:00 01/08/18 20:59 12/10/17 20:41 100 MG Multivitamins (Multivitamin Tab) 1 tab QAM PO 12/10/17 09:00 01/09/18 08:59 12/11/17 08:50 1 TAB Ondansetron HCl (Zofran Inj) 4 mg Q6H PRN IV 12/09/17 13:30 01/08/18 13:29 Metoclopramide HCl (Reglan Inj) 10 mg Q6H PRN IV 12/09/17 13:30 01/08/18 13:29 Pantoprazole Sodium (Protonix Tab) 40 mg QAM PO 12/10/17 09:00 12/13/17 09:01 12/11/17 08:51 40 MG Albuterol (Ventolin Hfa Inhaler) 2 puffs QID PRN INH 12/09/17 13:30 01/08/18 13:29 Cetirizine HCl (zyrTEC TAB) 10 mg DAILY PRN PO 12/09/17 13:30 01/08/18 13:29 Clopidogrel Bisulfate (plAVix TAB) 75 mg QPM PO 12/10/17 21:00 01/09/18 20:59 12/10/17 21:42 75 MG Escitalopram Oxalate (Lexapro Tab) 40 mg HS PO 12/09/17 21:00 01/08/18 20:59 12/10/17 21:43 40 MG Salmeterol Xinafoate/ Fluticasone (Advair Diskus 500/50 Inh) 1 puff BID INH 12/09/17 21:00 01/08/18 20:59 12/11/17 08:47 1 PUFF Fluticasone Propionate (Flonase Nasal [place]) 2 sprays DAILY PRN [place]EL[place] 12/09/17 13:30 01/08/18 13:29 Gabapentin (Neurontin Tab) 800 mg QID PO 12/09/17 17:00 01/08/18 16:59 12/10/17 20:41 800 MG Levothyroxine Sodium (Synthroid Tab) 150 mcg DAILYBB PO 12/10/17 06:00 01/09/18 05:59 12/11/17 06:26 150 MCG Montelukast Sodium (Singulair Tab) 10 mg QAM PO 12/10/17 09:00 01/09/18 08:59 12/11/17 08:53 10 MG Nitroglycerin (Nitrostat Tab) 0.4 mg PRN PRN [place] 12/09/17 13:30 01/08/18 13:29 Rosuvastatin Calcium (Crestor Tab) 20 mg HS PO 12/09/17 21:00 01/08/18 20:59 12/10/17 21:43 20 MG Metoprolol Succinate (Toprol Xl Tab) 100 mg HS PO 12/09/17 21:00 01/08/18 20:59 12/10/17 21:42 100 MG Miscellaneous Information (Consult Glycemic Management Pharmacy) 1 ea UD PRN N/A 12/09/17 15:15 01/08/18 15:14 Insulin Aspart (novoLOG ASPART) SLIDING SCALE ACHS SC 12/09/17 17:15 01/08/18 17:14 12/10/17 12:56 1 UNITS Glucose (Glucose 40% Gel) 15-30 GRAMS 15 GRAMS... UD PRN PO 12/09/17 15:30 01/08/18 15:29 Glucose (Glucose Chew Tab) 4-8 Tablets 4 Tabl... UD PRN PO 12/09/17 15:30 01/08/18 15:29 Dextrose (Dextrose 50% 50ML Syringe) 25-50ML 25ML FOR ... UD PRN IV 12/09/17 15:30 01/08/18 15:29 Glucagon (Glucagon Inj) 1 mg UD PRN IM 12/09/17 15:30 01/08/18 15:29 Carbohydrates (Carbohydrates For Hypoglycemia) 15-30 GRAMS 15 grams if BSG 54-69... UD PRN PO 12/09/17 15:30 01/08/18 15:29 Enoxaparin Sodium (Lovenox Inj) 30 mg Q12H SQ 12/09/17 22:00 01/06/18 21:59 12/10/17 20:41 30 MG Naloxone HCl (Narcan Inj) 0.4 mg ONE PRN IM 12/10/17 17:45 01/09/18 17:44 Naloxone HCl (Narcan Inj) 0.4 mg ONE PRN IV 12/10/17 17:45 01/09/18 17:44 Lidocaine (Lidoderm Patch 5%) 1 patch QAM TD 12/11/17 09:00 01/10/18 08:59 Miscellaneous (Remove Lidoderm Patch) 1 ea DAILY@21 N/A 12/11/17 21:00 01/10/18 20:59 Oxycodone HCl (Roxicodone Immediate Rel Tab) 20 mg Q6H PRN PO 12/11/17 09:15 12/23/17 17:59 Review of Systems Constitutional: Negative for fever, chills, sweats Eyes: Negative for eye pain, photophobia, drainage Ear, nose, mouth, throat: Negative for ear pain, nasal congestion, mouth lesions , change in voice Respiratory: Negative for wheezing, sputum production Cardiovascular: Negative for chest pain, palpitations, calf pain Gastrointestinal: Negative for abdominal pain, belching, bloating Genitourinary: Negative for dysuria, urinary incontinence, urinary urgency Musculoskeletal: Negative for deformities Integumentary: Negative for nail changes, skin yellowing, pruritus Neurological: Negative for abnormal speech, seizure type activity Physical Exam Height & Weight: Height 5 feet, 2 inches. Weight 104.300 (Kilograms) 229 (Pounds) Last Vital Signs Documentation Date Time Temp Pulse Resp B/P (MAP) Pulse Ox O2 Delivery O2 Flow Rate FiO2 12/11/17 08:16 37.3 90 16 113/69 (84) 92 Room Air 12/11/17 00:20 3.0 Exam: General: Patient lying quietly upon entering the room in no acute distress. Speech and thought process appropriate. Patient intermittently weepy throughout the visit. She appears moderately anxious. Her cognition is intact. Chest: Nontender to palpation of the costosternal junction. Abdomen: Protuberant, soft and nondistended. Extremities: Compression stockings in place bilaterally. Bandage in place over the right anterior knee status post TKA. Patient is generally tender over the right knee. Limited range of motion. Sensation intact distally. Neurologic: Cranial nerves grossly intact. Ambulatory function not witness. Laboratory Laboratory Results (Last CBC): 12/11/17 07:15 Red Blood Count 3.65 L, Mean Corpuscular Volume 87.7, Mean Corpuscular Hemoglobin 27.7, Mean Corpuscular Hemoglobin Concent 31.6 L, Mean Platelet Volume 9.8, Neutrophils (%) (Auto) 69.4, Lymphocytes (%) (Auto) 15.6, Monocytes (%) (Auto) 12.0, Eosinophils (%) (Auto) 2.4, Basophils (%) (Auto) 0.3, Neutrophils # (Auto) 11.09 H, Lymphocytes # (Auto) 2.49, Monocytes # (Auto) 1.92 H, Eosinophils # (Auto) 0.39, Basophils # (Auto) 0.05 Past Records Previous Records: personally reviewed by me [facility] Drug Monitoring Program Search Results: patient reviewed within database Drug Monitoring Findings: PDMP was reviewed which revealed 27 prescriptions in the past 1 year for controlled medications with 7 episodes of private pay and 10 total prescribers. She is also utilized 3 pharmacies. Her most recent prescriptions were for oxycodone/acetaminophen 5/325 mg written 12/02/2017 for #12 tablets and oxycodone 20 mg written on 11/11/2017 for #120 tablets. Prescribing of oxycodone 20 mg tablets 4 tablets daily appears to have been fairly consistent dating to March 2017. Opioid Risk Assessment Risk assessment performed, moderate risk identified Assessment 1. Chronic opioid dependency 2. Status post elective right TKA postop day #2 3. Chronic lumbago 4. Morbid obesity Recommendations 1. After discussing the case further with Dr. Wadsworth, will recommend the patient initiate MS Contin 15 mg every 12 hours for opioid rotation in an attempt to improve pain control. 2. Recommend maintaining OxyIR 20 mg every 6 hours as needed for breakthrough pain which is her chronic opioid utilization 3. Would recommend maintaining MS Contin for 1-2 weeks only with reverting back to her chronic utilization of OxyIR. Patient will discuss this further with her prescribing physician in the outpatient setting. Additional Copies To Norberto Anderson MD
[2017-12-11] MEDS ORDERED: MoRPHine SULFATE CR 15 MG TAB (MS CONTIN) PO SCH (12:00)
--- NOTE | 2017-12-11 12:58 | Progress Note ---
Progress Note Date of Service Dec 11, 2017. Progress Note She reports continued pain in her right knee. She is very upset about her pain medication management. Conversation is largely focused on medication and dosages. She does not seem to think that anything was wrong with yesterday other than being a little bit sleepy. She did not do any therapy yet today. She denies any chest pain shortness of breath or difficulty breathing. There is no abdominal pain. She has been afebrile. Her vital signs been stable. She has not been tachycardic. She has had some oxygen saturations down into the 70s. Her ABG was normal except for a PO2 of 70. Urine output is adequate. Her white count remains elevated and she is mildly anemic. She can almost independently get back in bed but required some assistance lifting her leg. Her incision was benign some bruising but minimal if any and likely no drainage at all. Did not find any pathological fluid collection. Her dorsalis pedis pulse was dopplerable and she had 5 out of 5 ankle into plantarflexion and dorsiflexion strength. She cannot do a straight leg raise her sensation was intact in the right leg. She knew who she was where she was at and why she was here but she did not know the day of the week or the number day. She knew the month and struggled a little bit with the year but eventually figured out it was 2017. Today she is much more awake she holds a conversation she asked more consistent with what I have seen as an outpatient. She is not overly somnolent she does not fall asleep when talking. She is speaking more coherently and focused today. Right total knee replacement chronic narcotic usage Plan I appreciate the input of the acute pain service as well as medicine. Other reasons for her hypoxia have been investigated including a chest x-ray and an ABG. I asked her if she took her pain medications regularly on an outpatient basis and she did. If she did not take these regularly as they are scheduled as an outpatient this may account for the effects seen yesterday with with what were fairly modest increases her pain medication dosages. At this time she is on oxycodone 20 mg every 6 hours. The Dilaudid and OxyContin have been held. She is on MS Contin 15 mg every 12. She reports that the Dilaudid did not work and actually asked to have it removed. Additionally she is fairly emotional again to today and cries several times. She talks about her father having having Alzheimer's and sundowning. She is concerned about memory. I asked if she would like to speak to someone from counseling services and she agrees. For continue her admission today for pain control. She has not done physical therapy. I discussed with her that I think that her level of arousal is more appropriate today. I reassured her that we want to control her pain but we want to do so in a safe fashion which I think is what were doing. She does not appear to be in pain and she is not tachycardic. Wound care instructions are given and she is not to be touching her incision.
--- NOTE | 2017-12-11 15:06 | Hospitalist Progress Note ---
Hospitalist Progress Note Date of Service Dec 11, 2017. Subjective Pt evaluation today including: conversation w/ patient, physical exam, conversation w/ makeup sales consultant (Orthopedics) Voiding: no voiding problems RN reports that patient was very mentally clear throughout the morning, and then around lunchtime became very drowsy was acting bizarre. She was talking about things that she was seen that were not really there. She was also picking at her incision and trying to get out of bed to the chair and back and forth on her own despite being told not to. The RN reports that the patient was asking for her purse prior to this. Earlier, the nurses brigette had found Excedrin hidden in the jack winder the room and confiscated it. I asked the nurse to bring security up to search her bags for outside medications that perhaps she was taking-interestingly, they found 6 pills of oxycodone in her purse. When I walked into her room to see her, she immediately said "I did not take anything." And when I asked what she meant and introduced myself, she immediately said "never mind." She kept asking about the pulse ox on her head and the nasal cannula in her nose and trying to rip it off her face as I was talking to her. She was obviously delirious. She was impulsive and kept trying to stand up and get into the bed and had to be constantly reminded to sit down in the chair. She denied chest pain or shortness of breath. Denies abdominal pain. All Other Systems: Reviewed and Negative Objective Vital Signs Date Time Temp Pulse Resp B/P (MAP) Pulse Ox O2 Delivery O2 Flow Rate FiO2 12/11/17 08:16 37.3 90 16 113/69 (84) 92 Room Air 12/11/17 07:50 94 Room Air 12/11/17 00:20 Nasal Cannula 3.0 12/10/17 23:29 37.3 86 18 111/73 (86) 96 Nasal Cannula 3.0 12/10/17 16:29 37.3 12/10/17 15:59 38.0 88 20 154/67 (96) 90 Nasal Cannula 3.0 12/10/17 15:50 95 Nasal Cannula 2.0 Physical Exam General Appearance: WD/WN, + obese Eyes: normal inspection, PERRL, EOMI, sclerae normal ENT: hearing grossly normal Neck: trachea midline Respiratory/Chest: lungs clear, normal breath sounds, no respiratory distress, no accessory muscle use, + pertinent finding (Nasal cannula in place) Cardiovascular: regular rate, rhythm, no edema, no murmur Abdomen: normal bowel sounds, non tender, soft, + hernia (Large ventral hernia easily reducible) Extremities: + pertinent finding (Right knee with dressing and Mehdi wrap in place with ice pack wrapped around) Neurologic/Psychiatric: alert, + pertinent finding (Oriented to person and place and year, impulsive, talking about things that are off topic from what I am asking her, appears confused) Skin: normal color, warm/dry, no rash Laboratory Results Last 24 Hours Test 12/10/17 17:18 12/10/17 20:33 12/11/17 07:15 12/11/17 08:13 Bedside Glucose 131 mg/dl 121 mg/dl 137 mg/dl White Blood Count 15.99 K/uL Red Blood Count 3.65 M/uL Hemoglobin 10.1 g/dL Hematocrit 32.0 % Mean Corpuscular Volume 87.7 fL Mean Corpuscular Hemoglobin 27.7 pg Mean Corpuscular Hemoglobin Concent 31.6 g/dl Platelet Count 302 K/uL Mean Platelet Volume 9.8 fL Neutrophils (%) (Auto) 69.4 % Lymphocytes (%) (Auto) 15.6 % Monocytes (%) (Auto) 12.0 % Eosinophils (%) (Auto) 2.4 % Basophils (%) (Auto) 0.3 % Neutrophils # (Auto) 11.09 K/uL Lymphocytes # (Auto) 2.49 K/uL Monocytes # (Auto) 1.92 K/uL Eosinophils # (Auto) 0.39 K/uL Basophils # (Auto) 0.05 K/uL RDW Standard Deviation 47.1 fL RDW Coefficient of Variation 14.6 % Immature Granulocyte % (Auto) 0.3 % Immature Granulocyte # (Auto) 0.05 K/uL Sodium Level 136 mmol/L Potassium Level 4.3 mmol/L Chloride Level 104 mmol/L Carbon Dioxide Level 25 mmol/L Anion Gap 6.0 mmol/L Blood Urea Nitrogen 17 mg/dl Creatinine 1.02 mg/dl Est Creatinine Clear Calc Drug Dose 67.3 ml/min Estimated GFR () 69.7 Estimated GFR (Non- 60.2 BUN/Creatinine Ratio 16.9 Random Glucose 145 mg/dl Calcium Level 8.7 mg/dl Test 12/11/17 09:24 12/11/17 12:26 Arterial Blood pH 7.38 Arterial Blood Partial Pressure CO2 41 mmHg Arterial Blood Partial Pressure O2 72 mm/Hg Arterial Blood HCO3 24 mmol/L Arterial Blood Oxygen Saturation 93.1 % Arterial Blood Base Excess -1.6 mEq/L Arterial Blood Gas Delivery 4 L Marcos Test POS Bedside Glucose 163 mg/dl Diagnostic Results Chest x-ray images personally reviewed by me and agree with the following report : CHEST ONE VIEW PORTABLE CLINICAL HISTORY: hypoxia disc COMPARISON STUDY: 05/18/2017 FINDINGS: Interval increase in prominence of the mid mediastinal soft tissues. Lungs otherwise appear clear. Diaphragms smooth. There are no focal infiltrates. IMPRESSION: Increased mid mediastinal prominence. Although most likely related to vascular shadows, CT of the chest with intravenous contrast enhancement is recommended to exclude adenopathy. Assessment and Plan This patient is a 57 y/o female with a history of HTN, stress-induced cardiomyopathy, HLD, DM II, asthma, hypothyroidism, significant depression/ anxiety, migraines, Morbid obesity, GERD, chronic back pain, chronic pain syndrome and opioid dependence, history of DVT, neuropathy, previous Right leg wound infected with MRSA,bilateral renal cysts, who is here s/p right TKA. Patient became more obtunded after receiving dose of Oxycodone 30mg po earlier today on top of OxyContin. Status post TKA-right knee -Postoperative orthopedic management as per them -Lovenox 30 mg SQ every 12 hours for DVT prophylaxis -Given that she has been taking outside pills from her purse (which have since been confiscated) and having encephalopathy which is likely toxic in nature, would recommend no long-acting opioids at all-pain management did order some today but it has been held due to altered mental status -I reviewed her [place] drug database prescription and printed it out to place on the chart-she has not been prescribed OxyContin and this was mistakenly placed on the preoperative medication list-the pharmacist here did change this upon admission and noted that she only takes oxycodone immediate release 20 mg p.o. every 6 hours as needed -Continue oxycodone 20mg po q 6 hours but make it as needed instead of scheduled -Discontinue Dilaudid --As needed -PT/OT evaluations Acute delirium/acute toxic encephalopathy-with hallucinations, agitation, confusion. Found to have access to oxycodone pills from home and had sudden worsening in mental status after having access to her purse today. Outside pills were confiscated and her room was searched by security. No reports of excessive alcohol use. Her MCV is normal so doubt heavy alcohol use at home and therefore doubt alcohol withdrawal -Chest x-ray without evidence of infection although she did have a borderline fever last evening which is likely from atelectasis -Check urine drug screen to see if she took anything else from outside the hospital -Check UA for infection -Pain management medications as above were adjusted -Continue oxygen to keep pulse ox greater than 92% in case some hypoxia is contributing -Supportive care -QT is normal on monitor strips-okay to use low-dose Haldol 1 mg p.o. every 2 hours as needed agitation and hallucinations for psychosis -Frequent checks versus getting a 1:1 if needed Acute hypoxic respiratory failure-pulse ox into the 70s at times. Likely secondary to excessive sedation from taking excess opioids in the setting of morbid obesity. She does say that she has had sleep studies before the said that she had sleep apnea, however she is not on a CPAP. -We will need overnight oximetry prior to discharge home to assess for need for home oxygen Asthma-stable -Continue home inhalers, bronchodilators History of stress-induced CM/HTN/HL-all stable at this time -Continue Plavix, rosuvastatin, Toprol-XL Chronic pain syndrome/chronic opioid dependence-pain management as above History of DVT-on Lovenox for prophylaxis Neuropathy-continue gabapentin Hypothyroidism-last TSH was slightly elevated in 02/2017 in our records -Check TSH in the morning -Continue home levothyroxine DM 2-she is not on any medication for this as an outpatient-unclear why this is true. Hemoglobin A1c here is 7.4% -Continue Accu-Cheks and sliding scale insulin especially in the setting of recent surgery Prophylaxis-Lovenox SQ 30 mg every 12, SCDs Disposition-PT/OT evaluations, may end up needing placement but has very complex social situation-is currently living in a hotel and has medical assistance. Case management following for needs
[2017-12-11 15:20] VITALS: O2SAT 95
[2017-12-11 15:43] VITALS: BP 129/79; PULSE 93; O2SAT 95
[2017-12-11] MEDS ORDERED: HALOPERIDOL 1 MG TAB PO PRN (18:15)
--- NOTE | 2017-12-11 19:53 | PROGRESS NOTE ---
DATE: 12/11/2017 I was contacted by Dr. Gallardo earlier today. She informed me that it was discovered that Alexis had extra medication, oxycodone in her room. This was removed by security. Her nurse this evening reported that she has been acting strange, constantly moving, hallucinating, and that she has also been touching and picking at her incision. When I went into Alexis's room, she was playing with the upper portion of her incision, even though that I had counseled her earlier today to not touch the incision. She complained that no one had come back to rewrap her incision even though she had asked someone who she cannot really identify to come and do so. I went ahead and reinforced the wound care precautions with her, reapplied the bandage and sealed it off with tape. Despite that, as we are talking, she again reached down and was picking at the dressing. She is constantly in movement scratching, twirling her pulse oximeter. Emotionally, she is very labile, sometimes laughing, talking normally, and crying within very short periods of time. She does admit that she had pain medication that was hers in the room. She wonders why it was taken. She indicates that she had it in her room because she was trying to keep it from her son, Pio at home. She did freely admit that she took at least 2 or 3 pills and she has been here in the hospital but she is uncertain that she could have taken more. Her wound looks fine perhaps a slight bit red from just touching it. Her neurovascular function is intact distally. I assisted her getting to the bathroom and she stated that her legs felt well and she did good with the walker. She did admit to having some hallucinations. She does appear to be somewhat paranoid. When talking about other people that are in the room who are not there and people outside her room who were talking. She also reports seeing cockroaches. I have talked with her nurse and suggested that we hold her pain medication and consult with the medicine service to see whether or not it is appropriate to continue her medications. I asked Alexis about whether or not she felt that she had a problem with narcotics. Certainly, she has had a problem with chronic pain in her joints and back. It appears that she has a misuse of narcotic pain medication. She did not think that she did. I suggest that she consider getting some help and we will certainly try to provide this for her. I explained to her that she cannot have other medications here and cannot take outside meds. I asked her pointedly if she had any other medicines, narcotics, or otherwise that were in her room and she said no. I indicated to her that this is a violation of trust and against our policy. Notes for medicine and psych were reviewed. I have offered to have psychiatric services come and speak with her. She is in agreement. I do not think that she is safe for discharge at this point. We will have to make some effort to ensure that her home situation is safe. Her vital signs are stable. I think that the self-administration of narcotic medication and accounts for the narcotization that was seen yesterday. She does not seem to think so. I think that it is likely that she took extra medication that accounted for what occurred yesterday. We will continue to monitor. ANDREINA
[2017-12-11] MEDS: ROSUVASTATIN CALCIUM 20 MG TAB PO SCH (20:48)
[2017-12-11] MEDS: ESCITALOPRAM OXALATE 20 MG TAB PO SCH (20:48)
[2017-12-11] MEDS: CLOPIDOGREL BISULFATE 75 MG TAB PO SCH (20:49)
[2017-12-11] MEDS: METOPROLOL SUCC 50MG EXT REL TAB PO SCH (20:49)
[2017-12-11 23:32] VITALS: BP 107/70; PULSE 79; TEMP 37.3; O2SAT 95
[2017-12-12] MEDS: ACETAMINOPHEN 500 MG TAB PO SCH ×2 (06:01→13:59)
[2017-12-12] MEDS: LEVOTHYROXINE 150 MCG TAB PO SCH (06:01)
[2017-12-12 06:36] LABS: BASO % 0.3 %; BASO ABS # 0.04 K/uL (0-0.2); EOS % 1.5 %; EOS ABS # 0.23 K/uL (0-0.5); HEMATOCRIT 28.9 % (37-47); HEMOGLOBIN 9.1 g/dL (12.0-16.0); IG# 0.06 K/uL (0.00-0.02); LYMPH % 15.6 %; LYMPH ABS # 2.34 K/uL (1.2-3.4); MEAN CORPUSCULAR HEMOGLOBIN 27.1 pg (25-34); MEAN CORPUSCULAR HGB CONC 31.5 g/dl (32-36); MEAN PLATELET VOLUME 9.9 fL (7.4-10.4); MONO % 12.2 %; MONO ABS # 1.83 K/uL (0.11-0.59); NEUT ABS # 10.48 K/uL (1.4-6.5); PLATELET COUNT 304 K/uL (130-400); RED CELL DISTRIBUTION WIDTH CV 14.9 % (11.5-14.5); RED CELL DISTRIBUTION WIDTH SD 46.5 fL (36.4-46.3); WHITE BLOOD COUNT 14.98 K/uL (4.8-10.8)
[2017-12-12 07:18] LABS: CALCIUM 8.3 mg/dl (8.5-10.1); CREATININE 0.83 mg/dl (0.60-1.20); POTASSIUM 4.1 mmol/L (3.5-5.1)
[2017-12-12 07:38] VITALS: BP 113/70; PULSE 79; TEMP 36.6; O2SAT 91
[2017-12-12] MEDS: GABAPENTIN 800 MG TAB PO SCH ×3 (08:19→16:43)
[2017-12-12] MEDS: PANTOprazole SOD 40 MG TAB PO SCH (08:20)
[2017-12-12] MEDS: DOCUSATE SODIUM 100 MG CAP PO SCH (08:20)
[2017-12-12] MEDS: MULTIVITAMIN TAB PO SCH (08:20)
[2017-12-12] MEDS: MONTELUKAST SOD 10 MG TAB PO SCH (08:20)
[2017-12-12] MEDS: FLUTICASONE/SALMETEROL (ADVAIR) 500/50 INH 14 PUFF INH SCH (08:21)
[2017-12-12] MEDS: LIDODERM (LIDOCAINE) PATCH 5% TD SCH (08:22)
[2017-12-12] MEDS: INSULIN ASPART 100 UNITS/ML 3 ML PEN SC SCH ×2 (08:25→12:39)
--- NOTE | 2017-12-12 09:52 | Pain Management Progress Note ---
Pain Management Progress Note Date of Service Dec 12, 2017. Subjective Patient was seen for follow-up on rounds this morning. Patient's electronic health record and the notes describing the events that transpired yesterday were reviewed. Conversation was had with the patient regarding her previous opioid history for chronic low back pain. She reports she is unable to recall the events that occurred yesterday and states that she has previous experience hallucinations from use of statins and attributes her behavior to the current statin that she is receiving in the hospital (Crestor). She reports that she has been on oxycodone total daily dose of 80 mg for approximate last 2 years duration for lumbar spinal stenosis and resultant pain. She further states that at one point in time her dose was increased to 120 mg which caused her to have significant side effects and therefore she voluntarily elected to reduce the dose to 20 mg every 6 hours instead of 30 mg every 6 hours. She sees pain management physician in [place] but resides in [place]. She denies any inappropriate use of her medications or any experiencing in her behavior with regards to her opioids. The patient reports that she experiencing "a lot of pain" at the operative site on the left knee. She reports the pain is constant and throbbing in nature. She attributes pain to be primarily postsurgical without any complaint regarding her back pain or the nonoperative knee. Objective Vital Signs: Last Vital Signs Documentation Date Time Temp Pulse Resp B/P (MAP) Pulse Ox O2 Delivery O2 Flow Rate FiO2 12/12/17 08:00 Room Air 12/12/17 07:38 36.6 79 18 113/70 (84) 91 12/11/17 15:43 3.0 Physical Exam: Ms. Cummings appears older than her stated age of 57. She appears moderately deconditioned. Her BMI is 42.0 kg/m. She is sitting upright in the bedside chair and is no pain or apparent distress at the present time. Her right leg is in a knee immobilizer. She is awake, alert, and oriented to time place and person and demonstrate normal cognition and sensorium at this time. Inspection lumbar spine demonstrate loss of lumbar lordosis. Provocative testing the facet joints of the SI joints appears to be minimally tender but she reports that she experienced excruciating pain with minimal touch. Straight leg raising is negative bilaterally. Sensation strength is symmetrical bilaterally where her right leg is excessive blocks of the knee immobilizer. There is no apparent motor weakness in the portion of the right lower extremity that could be examined with immobilizer in place. Laboratory Laboratory Findings 12/12/17 06:20 Red Blood Count 3.36 L, Mean Corpuscular Volume 86.0, Mean Corpuscular Hemoglobin 27.1, Mean Corpuscular Hemoglobin Concent 31.5 L, Mean Platelet Volume 9.9, Neutrophils (%) (Auto) 70.0, Lymphocytes (%) (Auto) 15.6, Monocytes (%) (Auto) 12.2, Eosinophils (%) (Auto) 1.5, Basophils (%) (Auto) 0.3, Neutrophils # (Auto) 10.48 H, Lymphocytes # (Auto) 2.34, Monocytes # (Auto) 1.83 H, Eosinophils # (Auto) 0.23, Basophils # (Auto) 0.04 Assessment 1. History of opiate dependence with aberrant behavior. 2. Status post total knee replacement with acute postoperative pain. Recommendations 1. There is some question that the patient was diverting her outpatient opioids and therefore was not taking 20 mg every 6 hours as she reports hands experiencing RN [employer]CCUPATIONAL [employer] side effects from that same current dose prescribed as an inpatient. Recommend discontinuing the oxycodone and placed patient on tapentadol 50 mg every 4 hours as needed pain to provide analgesia as well as mitigate symptoms of opiate withdrawal. If she continues to experience pain at 50 mg dose, dose can increase to 75 mg or 100 mg every 4 hours with a maximum daily dose of 500 mg. 2. Upon discharge, patient can continue 20 mg every 6 hours of oxycodone as she previously states she was taking. 3. Recommend discontinuing her Crestor while admitted as attributes her hallucinations to statins although this is not likely because of her symptoms.
[2017-12-12] MEDS ORDERED: TAPENTADOL HCL 50 MG TAB PO PRN ×3 (10:00→14:45)
[2017-12-12] MEDS: ENOXAPARIN 30 MG/0.3 ML SYR SQ SCH (10:00)
--- NOTE | 2017-12-12 10:44 | Orthopedic Progress Note ---
Orthopedic Progress Note Date of Service Dec 12, 2017. Subjective Post OP Day: 3 Reports: feeling well, complaints (Pain in right knee), Denies: chest pain, SOB , nausea / vomiting, light headedness, calf pain Additional Notes: She is slightly tearful throughout our discussion today. States that she knows she messed up. She had a dream last night that she was in retirement. She is still adamante about getting her Oxy IR 20 four times a day as that is what she took at home. She states that she has so much pain, but I have no idea how hard she is pushing herself to do what she is supposed to do. She claims the nurses aren 't giving her anything for pain. I told her that she seems more like herself today and she states it's because she's not talking to anyone. Objective calves soft nontender, N/V intact, capillary refill less than 2 sec., incision C /D/I, A&O x3, toes mobile Pulses not palpable, but dopplerable, distal sensation normal. Foot is warm. Skin intact, incision clean, dry, intact, mild erythema around incision, resolving ecchymosis distally. Calf Supple, tolerated gentle knee ROM and ankle pumps. Incision redressed. Date Time Temp Pulse Resp B/P (MAP) Pulse Ox O2 Delivery O2 Flow Rate FiO2 12/12/17 08:00 Room Air 12/12/17 07:38 36.6 79 18 113/70 (84) 91 Room Air 12/12/17 00:00 Room Air 12/11/17 23:32 37.3 79 17 107/70 (82) 95 Room Air 12/11/17 15:43 93 16 129/79 (96) 95 3.0 12/11/17 15:20 95 Nasal Cannula 3.0 Laboratory Results 24 Hours: Test 12/12/17 06:20 White Blood Count 14.98 K/uL Red Blood Count 3.36 M/uL Hemoglobin 9.1 g/dL Hematocrit 28.9 % Mean Corpuscular Volume 86.0 fL Mean Corpuscular Hemoglobin 27.1 pg Mean Corpuscular Hemoglobin Concent 31.5 g/dl Platelet Count 304 K/uL Mean Platelet Volume 9.9 fL Neutrophils (%) (Auto) 70.0 % Lymphocytes (%) (Auto) 15.6 % Monocytes (%) (Auto) 12.2 % Eosinophils (%) (Auto) 1.5 % Basophils (%) (Auto) 0.3 % Neutrophils # (Auto) 10.48 K/uL Lymphocytes # (Auto) 2.34 K/uL Monocytes # (Auto) 1.83 K/uL Eosinophils # (Auto) 0.23 K/uL Basophils # (Auto) 0.04 K/uL Assessment & Plan Assessment: POD 3- Right TKA Plan: She was seen by pain management, it appears that her OXR IR has been discontinued and Nucynta has been ordered. She's going to do some research to see if that is something that she wants to try. Diet as ordered - tolerating regular diet. oxygen sats fine on room air. She said that she removed the nasal cannula and won't use it anymore, as she "doesn't need it". Continue PT/OT. She participated today Knee immobilizer/OOB as tolerated with walker and assistance Ice to right knee PRN pain/swelling SS for disposition, plans to go home with home health. Her son will also be home with her to assist with needs as well. I discussed with her the possibility of going to [facility] or SNF, she doesn' t want this and doesn't feel that she needs it. She would like to go home today. I told her that we need recommendations from pain management, psych and medicine prior to her discharge. She seems to understand. Findings discussed with Dr. Cohen, we will re-assess things this afternoon.
--- NOTE | 2017-12-12 13:19 | Pharmacy Progress Note ---
Pharmacy Glycemic Short Note 2 Date of Service Dec 12, 2017. Item Value Date Time Bedside Glucose 137 mg/dl H 12/11/17 0813 Bedside Glucose 163 mg/dl H 12/11/17 1226 Bedside Glucose 156 mg/dl H 12/11/17 1725 Bedside Glucose 153 mg/dl H 12/11/17 2113 Bedside Glucose 148 mg/dl H 12/12/17 0759 OUTPATIENT ANTIDIABETIC REGIMEN: * None - diet controlled * A1c 7.4%- 12/10/17 ASSESSMENT: * Alexis is a 57 yr old diet controlled T2DM that is POD #3 s/p R-TKA. * Will target BSG less than 150 mg/dL to reduce the risk of post-operative complications/infection. * Alexis received 4 units of insulin yesterday. BSGs are near goal. * I do not feel that the patient requires the addition of long acting basal insulin at this time. She would benefit from the addition of metformin. PLAN FOR INPATIENT GLYCEMIC CONTROL: * Basal insulin * none * Bolus insulin * NovoLog per scale ACHS or Q6hrs while NPO * Goal Range: Low 110 mg/dL - High 140 mg/dL * Tighten Correction Factor: 15 mg/dL/unit PLAN FOR DISCHARGE: * A1c of 7.4% indicates diagnosis of diabetes per ADA Guidelines (patient currently diet controlled per physician notes) * Recommend starting metformin ER 500 mg once daily with dinner * can increase dose by 500 mg per week to goal of 1000 mg PO BID * administer with meals to limit GI side effects * recommend supplementation with vitamin B12 for chronic metformin use
--- NOTE | 2017-12-12 15:29 | Discharge Instructions ---
Discharge Instructions Date of Service Dec 10, 2017. Admission Reason for Admission: Right Knee Osteoarthritis Discharge Discharge Diagnosis / Problem: Right Knee Osteoarthritis Discharge Goals Goal(s): Decrease discomfort, Improve function, Increase independence Activity Recommendations Activity Limitations: per Instructions/Follow-up section Weightbearing Status: Right weightbearing (as tolerated) . Instructions / Follow-Up Instructions / Follow-Up New Medicine: * You will likely be taking one or more of these medications: 1. Lovenox - You will be on Lovenox for 2-4 weeks after surgery to prevent blood clots. Do not take anti- inflammatory pills (Advil or Aleve) while on Coumadin. Aspirin, 81 mg is OK. 2. Oxycodone- Take, as directed, when you need it, every four to six hours to control your pain. 3. Oxycodone - 10mg oral every 4 hours as needed for breakthrough pain. 4. Colace & Senokot - Take to prevent constipation which can be caused by narcotics. These can be bought [id number] at the pharmacy * The most common side effects of pain medicine and iron are nausea and constipation. If nausea or constipation is too much of a problem or if you have any questions about your new medicines or doses, call [facility] at . We will try to help you manage these issues. VERY IMPORTANT TO READ AND REVIEW" Blood Clots and Blood Thinning Medicine: * You are given Lovenox during the immediate post-operative period to lessen the risk of blood clots forming in your legs and/or lungs. Lovenox is usually given for 2-4 weeks after surgery. * The prescription is for 30 mg syringe. At discharge, you should understand your dose and take it all at the same time every day. * You need to get your blood checked on Friday December 15, 2017. Home health should draw your blood. Physical Therapy: * Do your physical therapy at home. These are the exercises you learned while in the hospital (quad sets, leg raises, calf pumps, gluteal squeezes, knee bending, and heel props.) You should do these exercises 3-4 times per day. * You will either go to inpatient rehab ([facility]), home with Home Therapy and nursing or home with outpatient rehab. You should do rehab with the therapist 2-3 times per week. You should do therapy on your own daily. * You may bear full weight on your leg with crutches or walker unless otherwise advised. Home Exercise: * You were shown a series of exercises (heel props, heel slides, etc.) in the hospital. Do these exercises three to four times each day including the exercises you were shown in physical therapy. Walking: * You may be up for short periods of time. Standing and walking for 1-2 hours at a time is usually okay. You should not stand or walk for excessive periods of time as this may cause increased pain and swelling. SELF CARE INSTRUCTIONS AFTER TOTAL KNEE REPLACEMENT A. You may need to continue a physical therapy program after discharge from the hospital. There are several options available to you. Your doctor will assist you in selecting the best one for you. 1. An out-patient facility 2 to 3 times a week for therapy or home therapy. 2. Continue working on all exercises taught to you in the hospital. Your goals should be to increase bending of your knee to 90 degrees and beyond and to fully straighten your knee. B. Your therapist will notify you when you are able to progress from a walker to a cane. C. Wear TEDS as much as possible.~ They may be removed at night for laundering. D. Do not place a pillow behind your knee when resting. A pillow at your ankle is okay. E. Ice your knee 15-20 minutes every 2-3 hours and elevate it above the level of your heart. F. You may shower on the fourth day after surgery (Friday) using regular soap and water. Do not submerge until the wound is completely healed (approximately 2 weeks ). Until the fourth day after surgery, cover the incision/bandage with a bag or plastic wrap. G. Anyone who is touching your surgical incision area should wash their hands and wear gloves. H. Keep your incision covered with gauze pads under the ARNALDO hose until it is dry. VERY IMPORTANT TO READ AND REVIEW A. YOU WILL BE GIVEN AN ORDER AT DISCHARGE FOR CBC (BLOOD WORK). PLEASE HAVE THIS DONE INSTRUCTED. PLEASE CALL OUR OFFICE AFTER YOUR BLOODWORK IS COMPLETE SO WE CAN TRACK YOUR RESULTS. B. There are a few signs you need to watch for after you are home. Call [facility] if you notice any of the followin. Increased severe knee pain. Some pain is expected especially when you exercise. 2. Increased swelling in your leg or knee; pain or swelling of the calf muscle in either lower leg. 3. Any fluid drainage from the incision. 4. Shortness of breath or chest pain. 5. Numbness and tingling in the surgical extremity C. Please call [facility] at if you have any concerns or questions about your operation or recovery. The doctor or his nurse will return your call promptly. D. Do not have any elective dental work or other elective procedures done for 6 weeks after your knee replacement. When you have any invasive procedure (dental cleaning, extraction, colonoscopy etc) performed, you will need to take antibiotics to prevent infection from developing in your artificial joint. Tell your other health care providers you have an artificial joint. My office will supply you with further information and the antibiotics. Call your doctor if: * Temperature above 101 degrees F. * Pain not relieved by pain medicine ordered. * Increased drainage or redness from incision. * Notify your doctor with any questions or concerns. Follow-up Visit: You will follow-up with Dr. Cohen 10-14 days after surgery. The office number is . * You have a follow up appointment scheduled with Dr. Cohen on 12/24/17 at 12:15 p.m. * You have a physical therapy appointment scheduled at [facility] therapy on 12/25/17 at 2:30 p.m. Avoid all tobacco products. If you need help to stop smoking, call [place]IT[facility] at . This is a free call. Current Hospital Diet Patient's current hospital diet: Diabetes Type 2 Diet Discharge Diet Recommended Diet: Regular Diet, Diabetes Type 2 Diet Procedures Procedures Performed: Right Total Knee Arthroplasty Pending Studies Studies pending at discharge: no Laboratory Results Hemoglobin A1c Test 12/10/17 05:50 Range/Units Estimated Average Glucose 166 mg/dl Hemoglobin A1c 7.4 H 4.5-5.6 % Medical Emergencies . Who to Call and When: Medical Emergencies: If at any time you feel your situation is an emergency, please call 911 immediately. . Non-Emergent Contact Non-Emergency issues call your: Surgeon Call Non-Emergent contact if: temperature is above 101, your pain is not controlled, your pain is worsening, your pain is unusual for you, your pain is concerning you, wound has increased drainage, wound has increased redness, wound has increased pain, you have any medication questions . "Provider Documentation" section prepared by Belen Gamez. . Management Sme Recommendations Management Sme Recommendations: From Dr. Green - Hospitalist team - 1. Your TSH (thyroid level) came back abnormal during this stay suggesting you are on too much thyroid medication. We have LOWERED your levothyroxine from 150 to 137mcg each day. [facility] Please have Dr. Anderson repeat your TSH (thyroid level) in 6 weeks. 2. Your diabetes was well-controlled with little to no medication during your stay. Please continue to control your diabetes with proper diet. Please follow-up with Dr. Anderson for your diabetes. Be sure to check your blood sugar at least once-twice a day so that you know your numbers on a day to day basis. 3. Please follow any other instructions from the orthopedic team regarding restrictions in activity, follow-up appointments, etc. I would recommend you see Dr. Anderson in about a week in addition to your orthopedic appointments. [place] Drug Monitoring Program Search Results: patient reviewed within database, no issues identified
--- NOTE | 2017-12-12 15:48 | Psychiatric Consultation ---
Consultation Date of Consultation Dec 12, 2017. Identifying Data 57-year-old female admitted medically prior to elective right total knee arthroplasty on 12/09/17. It is reported patient had taken home pain medications in addition to the medications she had been receiving while inpatient. Altered mental status way reported by nursing which led to the discovery. Psychiatric consult requested for substance overdose, altered mental status, and depressed mood. Chief Complaint "Well, ok, I'm just kind of frustrated with being here". History of Present Illness Alexis Cummings is a 57-year-old female with PMH of HTN, CAD, DM, obesity, chronic back and knee pain, anxiety and depression. Pt is s/p elective right total knee arthroplasty on 12/09/17. According to records from this hospitalization, the patient was found to have a supply of oxycodone in her personal belongings. Pt admitted to taking this home medication in addition to her scheduled post- procedural pain medications. An unknown amount of home medications were taken and patient became excessively somnolent and confused. Altered mental status was observed along with depressed mood. Psychiatric consult was requested due to substance overdose, altered mental status, and depressed mood. Pt's case was reviewed with psychiatric nurse liaison and patient was seen jointly in order to assess the above concerns. Pt states she is doing well today, but admits that is has been frustrated with her hospitalization. She states, "it's just like one thing going wrong after another." Pt shares that she had taken steps to secure a walker for adequate ambulation as well as transportation home from the hospital - both of which have fallen through. Pt states she also has been frustrated as she feels her pain has been inadequately managed. Pt does admit to having her home medication on hand and taking some to supplement her scheduled medication. As patient had already had this discussion with her orthopedic surgeon, the exact circumstances were not discussed in detail. She does, however, admit that she is not currently suicidal and that she did not take the extra medication as an attempt to end her life. Pt was queried about current depressive symptoms and she states, "I feel pretty good, just frustrated to be here." She denies periods of low mood prior to her elective surgery and states she has been doing well with her current prescription of escitalopram 40mg daily. Pt had been on this medication for several years, discontinued, and then re-started the medication several months ago with assistance from her PCP. She states, "I know when I'm not feeling good, that's why I went to him to get put back on." Pt denies SI, stating "there's just no way I could do that, I think that's awful." Pt denies manic symptoms. She admits to visual hallucinations, but states these are related to "they put me on another statin, this has happened with that in the past." She denies other mood or anxiety concerns at the time of this visit and is eager for discharge to home. Past Psychiatric History Current OP Treatment: no current treatment (Lexapro prescribed by PCP) Prior OP Treatment: psychiatrist (unsure of name, several years ago), therapist (unsure of name, several years ago) Allergies Allergies: Coded Allergies: Aspirin (Verified Allergy, Severe, SHORT OF BREATH, 12/09/17) Cephalexin (Verified Allergy, Severe, EDEMA OF FACE,LIPS,TONGUE, 12/09/17) Ketorolac Tromethamine (Verified Allergy, Severe, SHORTNESS OF BREATH, ) Latex2 -Systemic Allergic Response (Verified Allergy, Severe, DIFFICULTY BREATHING, 12/09/17) NSAIDs (Verified Allergy, Severe, SHORT OF BREATH, 12/09/17) Sulfa Antibiotics (Verified Allergy, Unknown, UNKNOWN- HAD RXN WHEN LITTLE , 12/09/17) Amitriptyline (Verified Adverse Reaction, Severe, NEURO COMPLICATIONS, ) Simvastatin (Verified Adverse Reaction, Intermediate, myalgias, 12/09/17) Metformin (Verified Adverse Reaction, Mild, GI SYMPTOMS, 12/09/17) Uncoded Allergies: adhesive (Allergy, Mild, rash,blister, 01/11/17) SORBAVIEW adhesive dressing Home Medications Scheduled Acetaminophen (Sb Non-Aspirin Extra Stre), 1,000 MG PO Q8H Clopidogrel (Plavix), 75 MG PO QPM Docusate Sodium (Docusate Sodium), 100 MG PO BID Enoxaparin (Lovenox), 30 MG SQ Q12H Escitalopram Oxalate (Lexapro), 40 MG PO HS Fluticasone Prop/Salmeterol (Advair Diskus 500/50 60 Dose), 1 PUFF INH BID Gabapentin (Neurontin), 800 MG PO QID Levothyroxine Sodium (Levothyroxine Sodium), 137 MCG PO QAM Metoprolol Succinate (Metoprolol Succinate ER), 100 MG PO HS Montelukast Sodium (Singulair), 10 MG PO QAM Omeprazole (Prilosec), 40 MG PO QAM Oxycodone HCl (Oxycodone HCl), 20 MG PO Q6H Rosuvastatin Calcium (Crestor), 20 MG PO HS Scheduled PRN Albuterol Hfa (Ventolin Hfa), 2 PUFFS INH QID PRN for Wheezing Cetirizine (Zyrtec), 10 MG PO DAILY PRN for Seasonal Allergies Fluticasone Propionate (Nasal) (Flonase Allergy Relief), 2 SPRAYS CANELO DAILY PRN for Seasonal Allergies Nitroglycerin (Nitrostat), 0.4 MG UT PRN PRN for chest pain Oxycodone Ir (Roxicodone Ir), 10 MG PO Q4H PRN for Pain Family History Asthma Diabetes mellitus FHx: cancer (skin) FHx: heart failure Gallbladder disease Heart disease Hypertension Kidney stones Alcohol Use Alcohol Use In Past 12 Months: No Smoking Use Smoking Status: Former Smoker Substance History Pt denies regular use of illicit substances. She does admit to one episode of marijuana use in a brownie last week for pain relief. Pt states she drinks about 1 cup of coffee daily. Personal History Lives in: [place], [place] Work History: Unemployed Review of Systems Psych: denies symptoms other than stated above Constitutional: reports headache Cardiovascular: denied GI: denied Neurologic: denied Musculoskeletal: report right knee and back pain Remainder of 10 body systems also reviewed and denied other than noted above. Examination Vital Signs Vital Signs Past 12 Hours Date Time Temp Pulse Resp B/P (MAP) Pulse Ox O2 Delivery O2 Flow Rate FiO2 12/12/17 08:00 Room Air 12/12/17 07:38 36.6 79 18 113/70 (84) 91 Room Air Laboratory Results Last 24 Hours Test 12/11/17 17:25 12/11/17 21:13 12/12/17 06:20 12/12/17 07:59 Bedside Glucose 156 mg/dl 153 mg/dl 148 mg/dl White Blood Count 14.98 K/uL Red Blood Count 3.36 M/uL Hemoglobin 9.1 g/dL Hematocrit 28.9 % Mean Corpuscular Volume 86.0 fL Mean Corpuscular Hemoglobin 27.1 pg Mean Corpuscular Hemoglobin Concent 31.5 g/dl Platelet Count 304 K/uL Mean Platelet Volume 9.9 fL Neutrophils (%) (Auto) 70.0 % Lymphocytes (%) (Auto) 15.6 % Monocytes (%) (Auto) 12.2 % Eosinophils (%) (Auto) 1.5 % Basophils (%) (Auto) 0.3 % Neutrophils # (Auto) 10.48 K/uL Lymphocytes # (Auto) 2.34 K/uL Monocytes # (Auto) 1.83 K/uL Eosinophils # (Auto) 0.23 K/uL Basophils # (Auto) 0.04 K/uL RDW Standard Deviation 46.5 fL RDW Coefficient of Variation 14.9 % Immature Granulocyte % (Auto) 0.4 % Immature Granulocyte # (Auto) 0.06 K/uL Sodium Level 134 mmol/L Potassium Level 4.1 mmol/L Chloride Level 102 mmol/L Carbon Dioxide Level 24 mmol/L Anion Gap 8.0 mmol/L Blood Urea Nitrogen 13 mg/dl Creatinine 0.83 mg/dl Est Creatinine Clear Calc Drug Dose 82.7 ml/min Estimated GFR () 89.5 Estimated GFR (Non- 77.2 BUN/Creatinine Ratio 15.4 Random Glucose 142 mg/dl Calcium Level 8.3 mg/dl Thyroid Stimulating Hormone (TSH) 0.092 uIu/ml Test 12/12/17 08:20 12/12/17 12:16 Urine Color YELLOW Urine Appearance CLOUDY Urine pH 5.0 Urine Specific [place] 1.018 Urine Protein 2+ Urine Glucose (UA) NEG Urine Ketones 1+ Urine Occult Blood 2+ Urine Nitrite NEG Urine Bilirubin NEG Urine Urobilinogen NEG Urine Leukocyte Esterase NEG Urine WBC (Auto) 5-10 /hpf Urine RBC (Auto) 5-10 /hpf Urine Hyaline Casts (Auto) 1-5 /lpf Urine Epithelial Cells (Auto) >30 /lpf Urine Bacteria (Auto) NEG Urine Opiates Screen POS Urine Methadone, Qualitative NEG Urine Barbiturates NEG Urine Phencyclidine (PCP) Level NEG Ur Amphetamine/Methamphetamine NEG MDMA (Ecstasy) Screen NEG Urine Benzodiazepines Screen POS Urine Cocaine Metabolite NEG Urine Marijuana (THC) POS Bedside Glucose 143 mg/dl Mental Examination During interview pt is: alert and oriented, cooperative Appearance: appropriately dressed (in nightgown), disheveled Eye contact is: good Motor behavior is: no abnormal motor movements (observed while laying in bed) Speech: normal in rate, rhythm & volume Affect: mood congruent, irritable (cooperative with discussing, but irritablity displayed when discussing hospital stay) Mood is: irritable Thought process: goal directed, clear, coherent Thought content: reality based without delusions Suicidal thought are: denied Homicidal thoughts are: denied Hallucinations: denies auditory, denies visual (admits to "seeing bugs" with " 2 statins they have me on") Cognition: memory grossly intact, attention grossly intact, language grossly intact Intelligence estimated to be: consistent with level of education Insight: fair Judgement: fair Impression / Recommendations Impression 57-year-old female with psychiatric history of depression and anxiety, admitted for elective right total knee arthroplasty. Pt seen on psychiatric consult service for AMS and depressed mood. At time of encounter, it appears the patient's AMS has cleared, and is most likely related to extra dosing of oxycodone from patient's personal home supply. Per staff, this home medication has been confiscated by security and patient has been clearing up throughout the day. Pt denies the excessive dosing was an attempt to end her life and adamantly denies SI to this provider. She also states her mood has been fairly decent recently and denies depressive symptoms. Pt was made aware that her dose of escitalopram is beyond the maximum recommended daily dose - which she knew from previous discussions about the medication. At this time she is not exhibiting signs and symptoms of Serotonin Syndrome and reports her depression and anxiety are well-controlled. Given several months of adequate mood control , per patient, it would seem appropriate to continue current psychotropic medication regimen. Pt is denying SI/HI, and other severe psychiatric symptoms. She does not meet criteria for inpatient mental health treatment. From a psychiatric standpoint, she appears appropriate for discharge according to recommendations made by primary medical team as well as her orthopedic providers. Risk Factors Assessment : Yes /single/: Yes Access to guns: No Health problems: Yes Mental Health Diagnoses: Yes Substance use disorders: No Previous attempt: No Hopelessness: No Smoker: No Protective Factors Assessment : No Employed: No Recommendations (1) History of major depression 12/12 - Continue Lexapro 40mg daily - No indication for inpatient mental health treatment - Follow-up with PCP as necessary, as prescribing antidepressant medication - Appreciate the opportunity to participate in the care of this patient Dr. Milagros Harp has personally been involved in the review of the above case and development of recommendations.
[2017-12-12] MEDS ORDERED: ACET-24 PO (15:54)
[2017-12-12] MEDS ORDERED: OXYC-90 PO (15:54)
[2017-12-12] MEDS ORDERED: LVNIS30 SQ (15:54)
[2017-12-12] MEDS ORDERED: CLC100 PO (15:54)
--- NOTE | 2017-12-12 15:54 | Progress Note ---
Progress Note Date of Service Dec 12, 2017. Progress Note Alexis appears much more herself today. She is concerned about how she was treated by nursing. She felt that the nursing was saying some things about her outside her room. I have asked [facility] to see her. She reports that she is having pain. She was able to do PT. She has not had a bowel movement movement but is passing gas. She has been poor appetite secondary to pain but no chest pain shortness of breath or abdominal pain. Therapy notes are noted. She is afebrile her vital signs are stable. Psychiatric consultation is not in yet. I did speak with Dr. Pereira and review his recommendations. She is unable to do a straight leg raise. Her distal neurovascular function is intact. She reports that she does not have a walker to use and no one can get one for her from [facility]. Additionally her daughter was supposed to bring her home but no longer I can give her a ride for because she is ill. She has oxycodone 20 at home. We will go ahead and give her Aloxi IR 10 mg p.o. every 4 for breakthrough pain. We were able to have [facility] speak with her today. We did have a conversation with case management and will be able to supply her with wheelchair van and somehow managed to get her a walker. We talked about do's and don'ts in terms of the activity bathing wound care. She will follow-up with me as scheduled. We talked about things come back for call like swelling drainage pain fevers etc. She will do her rehab and have home therapy. She will start taking Lovenox today we will get that to the pharmacy that is across the road from her hotel. She will take a stool softener. I think that she is orthopedically stable for discharge.
[2017-12-12] MEDS ORDERED: SYN137 PO (16:14)
[2017-12-12 16:20] VITALS: BP 113/70; PULSE 79; TEMP 36.6; O2SAT 91
[2017-12-12] MEDS ORDERED: FRRS300 PO (19:41)
--- NOTE | 2017-12-12 20:01 | Progress Note ---
Subjective Date of Service: Dec 12, 2017. Subjective Pt evaluation today including: conversation w/ patient, physical exam, chart review, lab review, review of studies (cxr), review of inpatient medication list Pain: right knee PO Intake: normal - eating well Voiding: no voiding problems patient feels back to normal today with her mental status she was awake and alert and able to answer all questions during my visit able to provide considerable past medical history as well she reported the 75mg tab of nucynta was not helpful for her pain she confirmed she would be returning to a local hotel after discharge this is where she was living prior to coming to the hospital she stated she had a "trust fund" that was paying for her hotel bills no bowel movement today but plenty of flatus BSGs all acceptable today Problem List Medical Problems: (1) Abdominal wall abscess Status: Acute (2) Acute exacerbation of chronic low back pain Status: Acute (3) Allergic reaction Status: Acute (4) Anxiety State Nos Status: Chronic (5) Asthma Status: Chronic (6) Asthma exacerbation Status: Acute (7) Bronchitis Status: Acute (8) Cellulitis Status: Acute (9) Cellulitis of toe of left foot Status: Acute (10) Chalazion left upper eyelid Status: Acute (11) Chest pain Status: Acute (12) Chronic knee pain Status: Acute (13) Congestion of nasal sinus Status: Acute (14) Contusion of left knee Status: Acute (15) Contusion of right foot Status: Acute (16) Degenerative arthritis of knee Status: Chronic (17) Depressive Disorder Nec Status: Chronic (18) Diab Niyah Wo Compl, Type Ii Or Unspec Type, Not Uncntrld Status: Chronic (19) Dyspnea Status: Acute (20) Epigastric abdominal pain Status: Acute (21) Esophageal Reflux Status: Chronic (22) Headache Status: Acute (23) Hx-Venous Thrombosis&Embolism Status: Chronic (24) Hyperlipidemia Nec/Nos Status: Chronic (25) Hypertension Status: Chronic (26) Hypertension Status: Acute (27) Hypokalemia Status: Acute (28) Hypothyroidism Nos Status: Chronic (29) Left ear pain Status: Acute (30) Leg pain, right Status: Acute (31) Lumbar Disc Displacement Status: Chronic (32) Lumbar radiculopathy Status: Acute (33) Lumbosacral Neuritis Nos Status: Chronic (34) Morbid Obesity Status: Chronic (35) Osteoporosis Nos Status: Chronic (36) Pneumonia Status: Acute (37) Splenosis Status: Chronic (38) Substernal chest pain Status: Acute (39) TIA (transient ischemic attack) Status: Acute (40) Urinary tract infection Status: Acute (41) UTI (urinary tract infection) Status: Acute (42) Wide-complex tachycardia Status: Acute Review of Systems Constitutional: No fever, No chills Respiratory: No shortness of breath Cardiac: No chest pain Abdomen: No pain Female : No dysuria Objective Vital Signs Date Time Temp Pulse Resp B/P (MAP) Pulse Ox O2 Delivery O2 Flow Rate FiO2 12/12/17 16:20 36.6 79 18 91 Room Air 12/12/17 08:00 Room Air 12/12/17 07:38 36.6 79 18 113/70 (84) 91 Room Air 12/12/17 00:00 Room Air 12/11/17 23:32 37.3 79 17 107/70 (82) 95 Room Air Physical Exam General Appearance: no apparent distress, + obese ENT: pharynx normal Neck: no JVD Respiratory/Chest: lungs clear, no respiratory distress, no accessory muscle use Cardiovascular: regular rate, rhythm, no gallop, no murmur Abdomen: normal bowel sounds, non tender, soft, no organomegaly, + pertinent finding (scar tissue, mid abdomen, vs hernia (reducible) ) Extremities: + pedal edema (right leg) Neurologic/Psychiatric: alert, oriented x 3 Comments: musculo - dressings intact to RLE (knee) Laboratory Results Last 24 Hours Test 12/11/17 17:25 12/11/17 21:13 12/12/17 06:20 12/12/17 07:59 Bedside Glucose 156 mg/dl 153 mg/dl 148 mg/dl White Blood Count 14.98 K/uL Red Blood Count 3.36 M/uL Hemoglobin 9.1 g/dL Hematocrit 28.9 % Mean Corpuscular Volume 86.0 fL Mean Corpuscular Hemoglobin 27.1 pg Mean Corpuscular Hemoglobin Concent 31.5 g/dl Platelet Count 304 K/uL Mean Platelet Volume 9.9 fL Neutrophils (%) (Auto) 70.0 % Lymphocytes (%) (Auto) 15.6 % Monocytes (%) (Auto) 12.2 % Eosinophils (%) (Auto) 1.5 % Basophils (%) (Auto) 0.3 % Neutrophils # (Auto) 10.48 K/uL Lymphocytes # (Auto) 2.34 K/uL Monocytes # (Auto) 1.83 K/uL Eosinophils # (Auto) 0.23 K/uL Basophils # (Auto) 0.04 K/uL RDW Standard Deviation 46.5 fL RDW Coefficient of Variation 14.9 % Immature Granulocyte % (Auto) 0.4 % Immature Granulocyte # (Auto) 0.06 K/uL Sodium Level 134 mmol/L Potassium Level 4.1 mmol/L Chloride Level 102 mmol/L Carbon Dioxide Level 24 mmol/L Anion Gap 8.0 mmol/L Blood Urea Nitrogen 13 mg/dl Creatinine 0.83 mg/dl Est Creatinine Clear Calc Drug Dose 82.7 ml/min Estimated GFR () 89.5 Estimated GFR (Non- 77.2 BUN/Creatinine Ratio 15.4 Random Glucose 142 mg/dl Calcium Level 8.3 mg/dl Thyroid Stimulating Hormone (TSH) 0.092 uIu/ml Test 12/12/17 08:20 12/12/17 12:16 Urine Color YELLOW Urine Appearance CLOUDY Urine pH 5.0 Urine Specific [place] 1.018 Urine Protein 2+ Urine Glucose (UA) NEG Urine Ketones 1+ Urine Occult Blood 2+ Urine Nitrite NEG Urine Bilirubin NEG Urine Urobilinogen NEG Urine Leukocyte Esterase NEG Urine WBC (Auto) 5-10 /hpf Urine RBC (Auto) 5-10 /hpf Urine Hyaline Casts (Auto) 1-5 /lpf Urine Epithelial Cells (Auto) >30 /lpf Urine Bacteria (Auto) NEG Urine Opiates Screen POS Urine Methadone, Qualitative NEG Urine Barbiturates NEG Urine Phencyclidine (PCP) Level NEG Ur Amphetamine/Methamphetamine NEG MDMA (Ecstasy) Screen NEG Urine Benzodiazepines Screen POS Urine Cocaine Metabolite NEG Urine Marijuana (THC) POS Bedside Glucose 143 mg/dl Assessment and Plan 57yo female - 1. encephalopathy - likely toxic from use of personal supply of narcotics (see earlier notes from other hospitalist providers). Resolved. I don't see metabolic causes for her encephalopathy; u/a today mildly dirty and urine cx sent as precautionary measure. 2. pain management - appreciate pain management consult and recommendations. at d/c she will resume her prior regimen of oxycodone prn. 3. hypothyroidism - TSH suppressed suggesting too large of a dose of synthroid ; decrease synthroid to 137mcg daily. repeat TSH in 6 weeks as outpatient with PCP. new dose sent to [facility] for patient. 4. acute blood loss anemia - would d/c home on ferrous sulfate 325mg BID x 3 months. Script sent to [facility] for patient. 5. T2DM - control very satisfactory at this time with minimal amount of novolog usage. Prior to admission was using diet control. Would continue diet control at discharge. This should be satisfactory for now. 6. acute hypoxic respiratory failure - resolved. 7. h/o asthma - not in exacerbation. 8. DVT proph - per ortho. 9. morbid obesity - BMI 42; hopefully w/ knee replacement she will be more active/mobile and able to lose weight. From medical standpoint can d/c home today. She will need f/u with PCP within 1-2 weeks of d/c ideally. Discharge planning: home with home health
[2017-12-13] MEDS ORDERED: LEVOTHYROXINE 137 MCG TAB PO SCH (06:00)
--- NOTE | 2017-12-13 11:07 | Discharge Summary ---
Discharge Summary Date of Service Dec 13, 2017. Discharge Summary Admission Date: Dec 09, 2017 at 13:43 Discharge Date: Dec 11, 2017 Discharge Disposition: Home with services Principal Diagnosis: DJD right knee Secondary Diagnoses/Problems: Medical Problems: 1. History of abdominal wall abscess 2. Acute coronary syndrome 3. Chronic low back pain 4. History of acute kidney failure 5. Anxiety 6. Asthma 7. Osteoarthritis of bilateral knees 8. Depression 9. Diabetes 10. Esophageal reflux disease 11. History of DVT/Pulmonary embolism 12. Hyperlipidemia 13. Hypertension 14. Hypothyroidism 15. Morbid obesity 16. Osteoporosis 19. Migraines Procedures: Right total knee arthroplasty by Dr. Cohen on December 09, 2017 Consultations: Glycemic control consult, hospitalists, psychiatry, pain management Pending Studies/Follow-Up: * You have a follow up appointment scheduled with Dr. Cohen on 12/24/17 at 12:15 p.m. * You have a physical therapy appointment scheduled at [facility] on 12/25/17 at 2:30 p.m. Medication Reconciliation New Medications: Ferrous Sulfate (Ferrous Sulfate) 325 Mg Tab 325 MG PO BID, #60 TABS 2 Refills Oxycodone Ir (Roxicodone Ir) 5 Mg Tab 10 MG PO Q4H PRN for Pain, #20 TAB for breakthrough pain Acetaminophen (Sb Non-Aspirin Extra Stre) 500 Mg Tab 1000 MG PO Q8H, #30 TAB Docusate Sodium (Docusate Sodium) 100 Mg Cap 100 MG PO BID for 30 Days, #60 CAP Enoxaparin (Lovenox) 30 Mg/0.3 Ml Inj 30 MG SQ Q12H for 14 Days, #28 SYR 1 Refill Changed Medications: Levothyroxine Sodium (Levothyroxine Sodium) 137 Mcg Tab 137 MCG PO QAM, #30 TABS 2 Refills (Changed from: Levothyroxine Sodium ( Synthroid) 150 Mcg Tab 150 Mcg PO QAM) Continued Medications: Albuterol Hfa (Ventolin Hfa) 200 Puffs/99147 Mcg Aers 2 PUFFS INH QID PRN for Wheezing Cetirizine (Zyrtec) 10 Mg Tab 10 MG PO DAILY PRN for Seasonal Allergies Clopidogrel (Plavix) 75 Mg Tab 75 MG PO QPM, TAB Escitalopram Oxalate (Lexapro) 20 Mg Tab 40 MG PO HS Fluticasone Prop/Salmeterol (Advair Diskus 500/50 60 Dose) 1 Ea Aerp 1 PUFF INH BID, INHALER Fluticasone Propionate (Nasal) (Flonase Allergy Relief) 50 Mcg/Act Spr 2 SPRAYS CANELO DAILY PRN for Seasonal Allergies Gabapentin (Neurontin) 800 Mg Tab 800 MG PO QID, TAB Metoprolol Succinate (Metoprolol Succinate ER) 100 Mg Tabcr 100 MG PO HS Montelukast Sodium (Singulair) 10 Mg Tab 10 MG PO QAM, TAB Nitroglycerin (Nitrostat) 0.4 Mg Tab 0.4 MG UT PRN PRN for chest pain, BTL Omeprazole (Prilosec) 40 Mg Cap 40 MG PO QAM, CAP Oxycodone HCl (Oxycodone HCl) 5 Mg Tab 20 MG PO Q6H Rosuvastatin Calcium (Crestor) 20 Mg Tab 20 MG PO HS, TAB Admission Information HPI (per Admitting provider): Patient is a pleasant 57-year-old female who is here today for preoperative history and physical. She is scheduled to have an elective right total knee arthroplasty on December 09, [address] Lele Cohen. Her surgery will be performed at [facility]. She complains of bilateral knee pain on a daily basis but her right knee is definitely worse in the left. She describes her pain is generalized over the knee but most exquisite on the inside aspect of the knee. She states that her pain is progressively worsened over the last year and especially last couple of weeks. She states that 5 days ago she could not even bear any weight on her right knee due to pain. She states that after sitting or standing for a period of time her right knee will "lock up" and she does take a couple of steps to unlock it. Her pain is increased with activity and weightbearing. Her activities of daily living have decreased significantly over the last 6 months due to pain in both of her knees. She has pain with range of motion and limited motion of both knees due to pain. Aggravating activities include walking, going up and down steps, resting, sitting or standing in one position for a length of time. Prior treatments include corticosteroid injections, Tylenol, chronic narcotics, Visco supplementation and bracing. She is unable to take nonsteroidal anti- inflammatory drugs due to her allergy. She is also use a cane to assist with ambulation. She states that she has declined with her health and ability to keep her job due to pain in her knees. She has lost approximately 50 pounds the last 6-12 months in an attempt to improve her knee pain. X-rays of both of her knees have been obtained and show end-stage osteoarthritis of her knees with osteophyte formation and [id number] in the medial compartment especially on her right knee. Due to her failure of all conservative treatment, surgical intervention was discussed.She has agreed to proceed with surgery and is scheduled for an elective right total knee replacement with Dr. Cohen. Physical Exam (per Admitting): General Appearance: WD/WN, no apparent distress Head: normocephalic, atraumatic Eyes: normal inspection, PERRL, EOMI, sclerae normal ENT: normal ENT inspection, hearing grossly normal, TMs normal, pharynx normal Neck: supple, no adenopathy, thyroid normal, no carotid bruits, trachea midline Respiratory/Chest: chest non-tender, lungs clear, normal breath sounds, no respiratory distress, no accessory muscle use Cardiovascular: regular rate, rhythm, no edema, no gallop, no murmur, normal peripheral pulses Abdomen/GI: normal bowel sounds, non tender, soft Back: normal inspection, no CVA tenderness, no muscle spasm, normal range of motion Extremities/Musculoskelatal: no calf tenderness, normal capillary refill, no pedal edema, + pertinent finding (Range of motion of her right knee is 0-110 of flexion. She is evident straight leg raise. She is stable ligamentous exam. No joint effusion. No erythema, warmth, ecchymosis of her right knee. No distal edema. Mild crepitation with range of motion. She is pointedness palpation of the medial joint line. Full range of motion of her hip and ankle without any discomfort. Dorsalis pedis pulses 1+. Capillary refill is brisk) Neurologic/Psych: no motor/sensory deficits, alert, normal mood/affect, normal reflexes, oriented x 3 Skin: normal color, warm/dry, no rash Physical Exam (per Admitting): Height: 154.7 cm Weight: 105.6 kg Hospital Course Patient is a 57-year-old female who was admitted to [facility] after undergoing an elective right total knee arthroplasty by Dr. Lele Cohen on December 09, 2017. Surgery was performed with spinal anesthesia and IV sedation as well as a peripheral nerve block. She tolerated the procedure well without any intraoperative complications. Belen Gamez PA-C assisted with the surgery. She was given 1500 mg of IV vancomycin for surgical prophylaxis due to her history of MRSA. This was continued for 24 hours after surgery. Type 2 diabetes diet was ordered after surgery. She tolerated regular diet without difficulty. Postoperative x-rays of her right knee were taken and showed a stable prosthesis in neutral alignment. She was placed on Lovenox 30 mg twice daily to start the evening of surgery for DVT prophylaxis. Her Plavix was also resumed on postoperative day 1. Her Lovenox will continue for 2-4 weeks after surgery. Pain medicine was prescribed and consisted of OxyIR 10 mg every 4 hours as needed pain, her chronic oxycodone 20 mg 4 times a day was resumed, morphine was initially given but did not help adequately with her pain so this was switched to Dilaudid on postoperative day 0, Tylenol thousand milligrams every 8 hours scheduled, and OxyContin 10 mg twice daily. On postoperative day 1, she was evaluated and stated that her pain was inadequately controlled. She felt that she needed more oxycodone than her regular 20 mg 4 times a day. She states prior to surgery she was taking at least 30 mg 4 times a day. She was unable to participate in physical therapy or bedside exercises due to her pain. She also requested that the Dilaudid 1 mg was increased to 2 mg as the 1 mg was not adequate. We did adjust her pain medications which consisted of OxyIR 10 mg every 4 hours as needed for breakthrough pain, OxyIR 30 mg 4 times a day scheduled, OxyContin 10 mg twice daily, Tylenol thousand milligrams 3 times a day as needed and Dilaudid 2 mg IV as needed severe pain. She was reevaluated in the afternoon and upon our evaluation she seemed to be severely oversedated and unarousable with disorientation, hallucinations and paranoia. Her pain medication was reevaluated and she had only oxycodone IR 30 mg at noon. She had not had any Dilaudid or additional OxyIR for breakthrough pain. All pain medications were suspended. Hospitalist consult was placed for evaluation and medical management. Pain management consult was also placed for assistance with postoperative pain control. She was reevaluated that evening and continued to have sedation, hallucinations and disorientation. Haldol was prescribed and she was given 1 dose of that. She continued to not have any pain medication or narcotics from nursing. On postoperative day 2, she continued to be oversedated with hallucinations and disorientation. She was persistent that it was not the pain medications causing her symptoms. She also had a couple episodes of hypoxia. A nasal cannula was continued due to this. She was unable to participate adequately in physical therapy. Medications continue to be held. We were notified that Excedrin Migraine was found in her room and confiscated. Postoperative day 2 she was also caught taking her own additional oxycodone tablets not known to any of the nursing staff during her stay. These meds were confiscated by security. She continued to not need any additional pain medication and the sedation and hallucinations slowly resolved. Psych consult was placed for assistance as well. They saw her on postoperative day 3 as they could not evaluate her prior to that due to her mental state. On postoperative day 3, pain management stopped all of her narcotic medication and started her on Nucynta. The recommendations were to use that for inpatient pain control and resume her normal home narcotic medication upon discharge. She did develop some mild acute blood loss anemia, no transfusions were needed during her inpatient stay. Her H&H remained stable. She tolerated a regular diet and did not develop any postoperative chest pain, or nausea or vomiting. She was allowed out of bed, weight bearing as tolerated with assistance of a walker and knee immobilizer. After her normal mental state returned, pain medication was discussed and we agreed to place her back on a regular oxycodone IR 20 mg 4 times a day with OxyIR 10 mg every 4 hours as needed for breakthrough pain. She is agreeable to this. Her dressings were changed on POD 2 and POD 3 and as needed. She was instructed repeatedly to not touch her incision. Placement was discussed for an inpatient rehab versus senior care facility. She denied these and felt that she could go home with her son. Case management was involved during her inpatient stay for disposition. She was determined safe for discharge after participating in physical therapy on postoperative day 3. Case management saw and evaluated the patient and set her up with a wheelchair transport to her place of living in stable condition. All questions were answered. Service Excellence was also consulted to allow patient to verbalize complaints during her stay. Discharge instructions were provided. Total time spent on discharge = This includes examination of the patient, discharge planning, medication reconciliation, and communication with other providers. Discharge Instructions Discharge Instructions Date of Service Dec 10, 2017. Admission Reason for Admission: Right Knee Osteoarthritis Discharge Discharge Diagnosis / Problem: Right Knee Osteoarthritis Discharge Goals Goal(s): Decrease discomfort, Improve function, Increase independence Activity Recommendations Activity Limitations: per Instructions/Follow-up section Weightbearing Status: Right weightbearing (as tolerated) . Instructions / Follow-Up Instructions / Follow-Up New Medicine: * You will likely be taking one or more of these medications: 1. Lovenox - You will be on Lovenox for 2-4 weeks after surgery to prevent blood clots. Do not take anti- inflammatory pills (Advil or Aleve) while on Coumadin. Aspirin, 81 mg is OK. 2. Oxycodone- Take, as directed, when you need it, every four to six hours to control your pain. 3. Oxycodone - 10mg oral every 4 hours as needed for breakthrough pain. 4. Colace & Senokot - Take to prevent constipation which can be caused by narcotics. These can be bought [id number] at the pharmacy * The most common side effects of pain medicine and iron are nausea and constipation. If nausea or constipation is too much of a problem or if you have any questions about your new medicines or doses, call [facility] at . We will try to help you manage these issues. VERY IMPORTANT TO READ AND REVIEW" Blood Clots and Blood Thinning Medicine: * You are given Lovenox during the immediate post-operative period to lessen the risk of blood clots forming in your legs and/or lungs. Lovenox is usually given for 2-4 weeks after surgery. * The prescription is for 30 mg syringe. At discharge, you should understand your dose and take it all at the same time every day. * You need to get your blood checked on Friday December 15, 2017. Home health should draw your blood. Physical Therapy: * Do your physical therapy at home. These are the exercises you learned while in the hospital (quad sets, leg raises, calf pumps, gluteal squeezes, knee bending, and heel props.) You should do these exercises 3-4 times per day. * You will either go to inpatient rehab ([facility]), home with Home Therapy and nursing or home with outpatient rehab. You should do rehab with the therapist 2-3 times per week. You should do therapy on your own daily. * You may bear full weight on your leg with crutches or walker unless otherwise advised. Home Exercise: * You were shown a series of exercises (heel props, heel slides, etc.) in the hospital. Do these exercises three to four times each day including the exercises you were shown in physical therapy. Walking: * You may be up for short periods of time. Standing and walking for 1-2 hours at a time is usually okay. You should not stand or walk for excessive periods of time as this may cause increased pain and swelling. SELF CARE INSTRUCTIONS AFTER TOTAL KNEE REPLACEMENT A. You may need to continue a physical therapy program after discharge from the hospital. There are several options available to you. Your doctor will assist you in selecting the best one for you. 1. An out-patient facility 2 to 3 times a week for therapy or home therapy. 2. Continue working on all exercises taught to you in the hospital. Your goals should be to increase bending of your knee to 90 degrees and beyond and to fully straighten your knee. B. Your therapist will notify you when you are able to progress from a walker to a cane. C. Wear TEDS as much as possible.~ They may be removed at night for laundering. D. Do not place a pillow behind your knee when resting. A pillow at your ankle is okay. E. Ice your knee 15-20 minutes every 2-3 hours and elevate it above the level of your heart. F. You may shower on the fourth day after surgery (Friday) using regular soap and water. Do not submerge until the wound is completely healed (approximately 2 weeks ). Until the fourth day after surgery, cover the incision/bandage with a bag or plastic wrap. G. Anyone who is touching your surgical incision area should wash their hands and wear gloves. H. Keep your incision covered with gauze pads under the ARNALDO hose until it is dry. VERY IMPORTANT TO READ AND REVIEW A. YOU WILL BE GIVEN AN ORDER AT DISCHARGE FOR CBC (BLOOD WORK). PLEASE HAVE THIS DONE INSTRUCTED. PLEASE CALL OUR OFFICE AFTER YOUR BLOODWORK IS COMPLETE SO WE CAN TRACK YOUR RESULTS. B. There are a few signs you need to watch for after you are home. Call [facility] if you notice any of the followin. Increased severe knee pain. Some pain is expected especially when you exercise. 2. Increased swelling in your leg or knee; pain or swelling of the calf muscle in either lower leg. 3. Any fluid drainage from the incision. 4. Shortness of breath or chest pain. 5. Numbness and tingling in the surgical extremity C. Please call [facility] at if you have any concerns or questions about your operation or recovery. The doctor or his nurse will return your call promptly. D. Do not have any elective dental work or other elective procedures done for 6 weeks after your knee replacement. When you have any invasive procedure (dental cleaning, extraction, colonoscopy etc) performed, you will need to take antibiotics to prevent infection from developing in your artificial joint. Tell your other health care providers you have an artificial joint. My office will supply you with further information and the antibiotics. Call your doctor if: * Temperature above 101 degrees F. * Pain not relieved by pain medicine ordered. * Increased drainage or redness from incision. * Notify your doctor with any questions or concerns. Follow-up Visit: You will follow-up with Dr. Cohen 10-14 days after surgery. The office number is . * You have a follow up appointment scheduled with Dr. Cohen on 12/24/17 at 12:15 p.m. * You have a physical therapy appointment scheduled at [facility] on 12/25/17 at 2:30 p.m. Avoid all tobacco products. If you need help to stop smoking, call [place] at . This is a free call. Current Hospital Diet Patient's current hospital diet: Diabetes Type 2 Diet Discharge Diet Recommended Diet: Regular Diet, Diabetes Type 2 Diet Procedures Procedures Performed: Right Total Knee Arthroplasty Pending Studies Studies pending at discharge: no Laboratory Results Hemoglobin A1c Test 12/10/17 05:50 Range/Units Estimated Average Glucose 166 mg/dl Hemoglobin A1c 7.4 H 4.5-5.6 % Medical Emergencies . Who to Call and When: Medical Emergencies: If at any time you feel your situation is an emergency, please call 911 immediately. . Non-Emergent Contact Non-Emergency issues call your: Surgeon Call Non-Emergent contact if: temperature is above 101, your pain is not controlled, your pain is worsening, your pain is unusual for you, your pain is concerning you, wound has increased drainage, wound has increased redness, wound has increased pain, you have any medication questions . "Provider Documentation" section prepared by Belen Gamez. . [employer] Recommendations [employer] Recommendations: From Dr. Green - Hospitalist team - 1. Your TSH (thyroid level) came back abnormal during this stay suggesting you are on too much thyroid medication. We have LOWERED your levothyroxine from 150 to 137mcg each day. I [facility] for you. Please have Dr. Anderson repeat your TSH (thyroid level) in 6 weeks. 2. Your diabetes was well-controlled with little to no medication during your stay. Please continue to control your diabetes with proper diet. Please follow-up with Dr. Anderson for your diabetes. Be sure to check your blood sugar at least once-twice a day so that you know your numbers on a day to day basis. 3. Please follow any other instructions from the orthopedic team regarding restrictions in activity, follow-up appointments, etc. I would recommend you see Dr. Anderson in about a week in addition to your orthopedic appointments. [place] Drug Monitoring Program Search Results: patient reviewed within database, no issues identified <Electronically signed by Belen Gamez PA-C> <Electronically signed by Keyshawn Green MD> Signed: 12/12/17 1559 Signed: 12/12/17 1618 The status of this report is ISigned * If report status is Draft, the document has not been finalized by the responsible provider.
== END 2017-12-12 17:35 | disposition home health service (06) | DRG 470 ==
LOC: C.ACU 08:19 → C.3E 13:43 → ENRESERV 14:15
PROVIDERS: ADMIT Physical Medicine & Rehabilitation Sports Medicine; ATTEND Physical Medicine & Rehabilitation Sports Medicine
PROC: 0SRC0J9 Replacement of Right Knee Joint with Synthetic Substitute, Cemented, Open Approach (ICD-10-PCS; principal; 2017-12-09 10:00)
DX: M17.11 Unilateral primary osteoarthritis, right knee (principal); Z83.3 Family history of diabetes mellitus; Z82.49 Family history of ischemic heart disease and other diseases of the circulatory system; Z87.891 Personal history of nicotine dependence; Z88.6 Allergy status to analgesic agent; Z88.2 Allergy status to sulfonamides; Z91.040 Latex allergy status; Z88.1 Allergy status to other antibiotic agents; Z88.8 Allergy status to other drugs, medicaments and biological substances; E66.01 Morbid (severe) obesity due to excess calories; E78.5 Hyperlipidemia, unspecified; I25.10 Atherosclerotic heart disease of native coronary artery without angina pectoris; E11.9 Type 2 diabetes mellitus without complications; Z79.891 Long term (current) use of opiate analgesic; F41.9 Anxiety disorder, unspecified; J45.909 Unspecified asthma, uncomplicated; F32.9 Major depressive disorder, single episode, unspecified; K21.9 Gastro-esophageal reflux disease without esophagitis; Z86.718 Personal history of other venous thrombosis and embolism; Z86.711 Personal history of pulmonary embolism; E03.9 Hypothyroidism, unspecified

== ENCOUNTER 2019-01-14 20:23 | Inpatient (IN) ==
[2019-01-14 21:05] LABS: Appearance Urine Cloudy (Clear); Bacteria Urine Automated Negative (Negative); Blood Urine Negative (Negative); Color Urine Dark Yellow; Epithelial Cell Urine Auto >30 /lpf (0-5); Glucose Urine UA Negative (Negative); Ketones Urine Trace (Negative); Leukocyte Esterase Urine Negative (Negative); Nitrite Urine Negative (Negative); Protein Urine Trace (Negative); Specific Gravity Urine 1.026 (1.000-1.030); Urobilinogen Urine Negative (Negative)
[2019-01-14 21:07] LABS: Bilirubin Urine Negative (Negative); Cast Urine Automated >30 /lpf (0-5); Ictotest Urine Negative (Negative)
[2019-01-14 21:17] LABS: RBC Urine Automated 0-4 /hpf (0-4)
[2019-01-14 21:18] LABS: Calcium Oxalate Crystals Urine Present (None Prsent)
[2019-01-14 21:28] LABS: Hematocrit (blood only) 42.6 % (37-47); Hemoglobin 14.3 g/dL (12.0-16.0); Mean Corpuscular Hemoglobin 28.9 pg (25-34); Mean Corpuscular Hgb Conc 33.6 g/dL (32-36); Mean Corpuscular Volume 86.1 fL (80-100); Mean Platelet Volume 10.1 fL (7.4-10.4); Platelet Count 461 K/uL (130-400); RDW Coefficient of Variation 15.5 % (11.5-14.5); RDW Standard Deviation 48.7 fL (36.4-46.3); Red Blood Count 4.95 M/uL (4.2-5.4)
[2019-01-14 21:43] LABS: Albumin Level 4.6 gm/dl (3.4-5.0); BUN Creatinine Ratio 18.3 (10-20); Creatinine Clr Calc Pharmacy 31.1 ml/min; Est GFR (African American) 28.3; Est GFR (Non-African American) 24.4; Potassium 3.6 mmol/L (3.5-5.1)
[2019-01-14 21:46] LABS: Albumin Globulin Ratio 1.3 (0.9-2); Bilirubin,Total 1.2 mg/dl (0.2-1); Globulin 3.7 gm/dl (2.5-4.0); Total Protein 8.3 gm/dl (6.4-8.2)
[2019-01-14] MEDS ORDERED: SODIUM CHLORIDE 0.9% 1000ML 1,000 ML IV ONE (21:47)
--- NOTE | 2019-01-14 21:53 | CT Scan Report ---
ABDOMEN AND PELVIS CT WITHOUT CONTRAST CT DOSE: 1019.33 mGy.cm HISTORY: Right flank pain. Evaluate for stone. TECHNIQUE: Multiaxial CT images of the abdomen and pelvis were performed without contrast. A dose lo wering technique was utilized adhering to the principles of ALARA. COMPARISON STUDY: Abdomen and pelvis CT 09/20/2018. FINDINGS: The lung bases are clear. No pneumoperitoneum. No pneumatosis. No suspicious lytic are star tic osseous lesions. Prior L3 vertebroplasty is again noted. Moderate central canal narrowing at L3 d ue to the chronic compression deformity remains unchanged. Prior mesh repair of a ventral hernia with persistent laxity of the anterior abdominal wall. This remains unchanged. Cholecystectomy. The unenh anced liver, pancreas, and adrenal glands unremarkable. No retroperitoneal lymphadenopathy. A normal spleen is not identified. Multiple small splenic nodules seen within the left side the abdomen consis tent with splenosis. Prior hysterectomy and appendectomy. Stable 1.6 cm hypodense lesion within the u pper pole the right kidney. This favors a cyst. Stable 5 mm intermediate density lesion within the le ft kidney. This is technically too small to characterize. There is a punctate stone within the right kidney. No ureteral stones. No hydronephrosis. The bladder is unremarkable. No pelvic free fluid. Sub optimal evaluation for bowel pathology due to the lack of intravenous and oral contrast. However, the re is no definite bowel wall thickening or obstruction. Colonic diverticulosis. No evidence for diver ticulitis. IMPRESSION: 1. Right-sided nephrolithiasis. No ureteral stones. No hydronephrosis. 2. No definite bowel wall thickening or obstruction. 3. Postoperative changes as described above. Electronically signed by: Matteo Rojas M.D. 01/14/2019 9:52 PM
--- NOTE | 2019-01-14 22:44 | History & Physical Report ---
Date of Service January 14, 2019 Assessment & Plan (1) ELIO (acute kidney injury): Creatinine 2.14 upon admission. Baseline 0.75. Placed on NSS at 125 mL's per hour, and repeat labs in the a.m. Dehydration is likely a factor of moving out of her car for several months and recently moving over this past weekend. Present on Admission?: Yes (2) Rash: We will treat rash symptomatically at this time with Benadryl 12 5 mg p.o. every 4 hours as needed. She has been on a prednisone taper in the outpatient setting, which will convert IV Solu-Medrol while in hospital. Continue fexofenadine 180 mg daily. She may require allergy testing. Present on Admission?: Yes (3) Hx pulmonary embolism: Not on any chronic anticoagulation. Placed on DVT prophylaxis with heparin subcu Present on Admission?: Yes (4) Anxiety disorder: Continue Lexapro 40 mg every evening and gabapentin 800 mg p.o. 4 times daily Present on Admission?: Yes (5) Hypothyroidism: Continue levothyroxine sodium 137 mcg daily before breakfast Present on Admission?: Yes (6) Chronic low back pain: Uses oxycodone 20 mg p.o. at bedtime as needed Present on Admission?: Yes (7) Asthma: Continue Ventolin HFA 2 puffs 4 times daily as needed Advair Diskus 1 inhalation twice daily and montelukast 10 mg every morning Present on Admission?: Yes (8) Allergic rhinitis: Continue fexofenadine and montelukast Present on Admission?: Yes (9) GERD (gastroesophageal reflux disease): Omeprazole 40 mg p.o. every morning to pantoprazole 40 mg p.o. every morning. 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 Primary Care Provider: Norberto Anderson The patient is a 58-year-old female with a past medical history including asthma, allergy, hypothyroidism, depression and hypertension, who presents to the emergency department with complaint of a generalized rash which began 3 days ago and continues to worsen. Her face is the most bothersome, with painful areas above her upper lip and on her nose and forehead. She reports that her face began to get significantly swollen about 1 hour prior to arrival, but began to improve in route to the hospital. She presently is on a course of prednisone prescribed by her outpatient physician for the rash. She does note some bruising on her left breast when she awoke this morning. Of note, the patient has been living in her car since July due to inability to find a suitable house, but did move into a house this past weekend 4 days ago. Allergies Allergy/AdvReac Type Severity Reaction Status Date / Time aspirin Allergy Severe SHORT OF Verified 01/14/19 21:08 BREATH cephalexin Allergy Severe EDEMA OF Verified 01/14/19 21:08 FACE,LIPS,TONGUE ketorolac Allergy Severe SHORTNESS Verified 01/14/19 21:08 OF BREATH latex Allergy Severe Difficulty Verified 01/14/19 21:08 Breathing NSAIDS (Non-Steroidal Allergy Severe SHORT OF Verified 01/14/19 21:08 Anti-Inflamma BREATH vancomycin Allergy Intermediate POSSIBLE Verified 01/14/19 21:08 IRRITATION? Sulfa (Sulfonamide Allergy Unknown UNKNOWN- Verified 01/14/19 21:08 Antibiotics) HAD RXN WHEN LITTLE adhesive Allergy Rash Verified 01/14/19 21:08 amitriptyline AdvReac Severe NEURO Verified 01/14/19 21:08 COMPLICATIONS simvastatin AdvReac Intermediate myalgias Verified 01/14/19 21:08 metformin AdvReac Mild GI SYMPTOMS Verified 09/20/18 17:29 Home Medications Home Medications Medication Instructions Recorded Confirmed Type fluticasone propion-salmeterol 1 inha INHALATION BID #14 ea 01/01/18 01/14/19 Rx [Advair Diskus] fluticasone propionate 1 sprays NA DAILY PRN #9.9 gm 01/01/18 01/14/19 Rx gabapentin 800 mg PO QID #30 tab 01/01/18 01/14/19 Rx levothyroxine 137 mcg PO DAILYBB #30 tab 01/01/18 01/14/19 Rx rosuvastatin [Crestor] 20 mg PO HS #30 tab 01/01/18 01/14/19 Rx Medical Marijuana 2 - 3 puff INHALATION HS PRN 06/03/18 01/14/19 History acetaminophen [Pain Reliever] 1,000 mg PO Q8H PRN 06/03/18 01/14/19 History albuterol sulfate [Ventolin HFA] 2 puff INHALATION QID PRN 06/03/18 01/14/19 History clopidogrel 75 mg PO QPM 06/03/18 01/14/19 History escitalopram oxalate 40 mg PO QPM 06/03/18 01/14/19 History fexofenadine 180 mg PO QAM 06/03/18 01/14/19 History montelukast 10 mg PO QAM 06/03/18 01/14/19 History oxycodone 20 mg PO Q6 06/03/18 01/14/19 History metoprolol succinate 50 mg PO HS 09/20/18 01/14/19 History omeprazole 40 mg PO QAM 09/20/18 01/14/19 History prednisone 0 mg PO UD 01/14/19 01/14/19 History Past Med/Surg History Medical History Nocturnal hypoxia Morbid obesity with BMI of 40.0-44.9, adult Infection of total right knee replacement Dyspnea (Acute) Hx pulmonary embolism (Chronic) provoked, occurred in 2003, no further episodes Hypothyroidism (Chronic) Opioid dependence (Chronic) Anxiety disorder (Acute) Hypotension (Resolved 04/08/13) History of chronic back pain (Chronic) Leukocytosis (Resolved) CHI (closed head injury) (Resolved) Post concussion syndrome (Resolved) History of major depression Anxiety disorder (Chronic) CAD (coronary artery disease) (Chronic) Chronic low back pain (Chronic) GERD (gastroesophageal reflux disease) (Chronic) Hyperlipidemia (Chronic) Hypertension (Chronic) Hypothyroidism (Chronic) Iron deficiency anemia (Chronic) Opioid dependence (Chronic) Osteoarthritis (Chronic) Seasonal allergies (Chronic) History of pulmonary embolism (Resolved) Surgical History History of splenectomy Hx of hernia repair (Resolved) Hx of appendectomy (Resolved) S/P appendectomy S/P carpal tunnel release S/P cholecystectomy S/P hernia repair S/P kyphoplasty S/P right knee arthroscopy S/P splenectomy S/P total knee arthroplasty Family History Other Asthma Coronary heart disease DM type 2 (diabetes mellitus, type 2) Hypertension Social History Preferred Language: Indonesian Communication Ability: Effective Visual Impairment: No 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 Beliefs That Will Affect Care: None marital status: Single Current Living Situation: Family Current Living Situation Comment: with son current occupational status: employed Other Information That Helps Us Care for You: No Feels Safe at Home: Yes Safety Concerns: Feels Safe At This Time Smoking Status: Former smoker Smoking End Date: 1989 ; Hx Alcohol Use: No Hx Substance Use: Yes substance use type: marijuana Last Used Substance: Days (ago) Last Used Substance Other:: 3-4 days ago Review of Systems Review of Systems: The patient denies chest pain, palpitations, shortness of breath, dyspnea on exertion, cough, lower extremity swelling, sore throat, fevers, chills, sweats, weight change, nausea, vomiting, diarrhea , constipation, abdominal pain, pelvic pain, blood in urine or stool, dysuria, urinary frequency or urgency, lightheadedness, dizziness, headache, memory loss, loss of consciousness, imbalance, focal weakness, numbness or tingling in arms or legs, generalized arthralgias or myalgias, or night sweats. The review of systems is otherwise negative other than for that already noted above, and at least 10 systems have been reviewed. Physical Exam Physical Exam: The patient is awake, alert and oriented 3, lying in bed and in no acute distress. HEENT--PERRL, EOMI, mucous membranes and oropharynx dry. Neck--supple. No JVD. No bruits. Thyroid normal, trachea midline, no adenopathy. Heart--normal S1 and S2. No murmurs, rubs or gallops. Lungs--clear bilaterally, no respiratory distress, no accessory muscle use. Abdomen--normal bowel sounds and soft. Nontender. Nondistended. Obese Extremities--no cyanosis or clubbing. No edema. There are good distal pulses b/l. Dermatologic--generalized facial erythema, more concentrated over upper lip, nose and glabella areas. Scattered papular macular rash otherwise. Neurologic--cranial nerves II through XII grossly intact. Rheumatologic--normal range of motion. Psychiatric--normal affect. Results & Data Vital Signs (Past 12 Hours) Vital Signs Temp Pulse Resp BP Pulse Ox 01/14/19 20:24 97.5 F L 100 H 20 168/96 H 93 Laboratory Results Laboratory Results WBC 23.40 K/uL (4.8-10.8) H 01/14/19 20:58 RBC 4.95 M/uL (4.2-5.4) 01/14/19 20:58 Hgb 14.3 g/dL (12.0-16.0) 01/14/19 20:58 Hct 42.6 % (37-47) 01/14/19 20:58 MCV 86.1 fL (80-100) 01/14/19 20:58 MCH 28.9 pg (25-34) 01/14/19 20:58 MCHC 33.6 g/dL (32-36) 01/14/19 20:58 RDW Std Deviation 48.7 fL (36.4-46.3) H 01/14/19 20:58 RDW Coeff of Jose 15.5 % (11.5-14.5) H 01/14/19 20:58 Plt Count 461 K/uL (130-400) H 01/14/19 20:58 MPV 10.1 fL (7.4-10.4) 01/14/19 20:58 Neutrophils % (Manual) 60.8 % 01/14/19 20:58 Lymphocytes % (Manual) 32.2 % 01/14/19 20:58 Monocytes % (Manual) 6.1 % 01/14/19 20:58 Eosinophils % (Manual) 0.9 % 01/14/19 20:58 Blast Cells % (Manual) 0.9 % 01/14/19 20:58 Neutrophils # (Manual) 14.23 K/uL (1.4-6.5) H 01/14/19 20:58 Total Absolute Neuts 14.23 K/uL (1.4-6.5) H 01/14/19 20:58 Lymphocytes # (Manual) 7.53 K/uL (1.2-3.4) H 01/14/19 20:58 Total Abs Lymphocytes 7.53 K/uL (1.2-3.4) H 01/14/19 20:58 Monocytes # (Manual) 1.43 K/uL (0.11-0.59) H 01/14/19 20:58 Eosinophils # (Manual) 0.21 K/uL (0-0.5) 01/14/19 20:58 Blast Cells # (Man) 0.21 K/uL (0-0) H 01/14/19 20:58 Smudge Cells Present 01/14/19 20:58 Sodium 133 mmol/L (136-145) L 01/14/19 20:58 Potassium 3.6 mmol/L (3.5-5.1) 01/14/19 20:58 Chloride 96 mmol/L (98-107) L 01/14/19 20:58 Carbon Dioxide 26 mmol/L (21-32) 01/14/19 20:58 Anion Gap 11.0 (3-11) 01/14/19 20:58 BUN 39 mg/dl (7-18) H 01/14/19 20:58 Creatinine 2.14 mg/dl (0.6-1.2) H 01/14/19 20:58 Est Cr Clr Drug Dosing 31.1 ml/min 01/14/19 20:58 Est GFR ( Amer) 28.3 01/14/19 20:58 Est GFR (Non-Af Amer) 24.4 01/14/19 20:58 BUN/Creatinine Ratio 18.3 (10-20) 01/14/19 20:58 Glucose 181 mg/dl (70-99) H 01/14/19 20:58 Calcium 9.0 mg/dl (8.5-10.1) 01/14/19 20:58 Total Bilirubin 1.2 mg/dl (0.2-1) H 01/14/19 20:58 AST 70 U/L (15-37) H 01/14/19 20:58 ALT 41 U/L (12-78) 01/14/19 20:58 Alkaline Phosphatase 99 U/L (45-117) 01/14/19 20:58 Total Creatine Kinase 2164 U/L (26-192) H 01/14/19 20:58 Total Protein 8.3 gm/dl (6.4-8.2) H 01/14/19 20:58 Albumin 4.6 gm/dl (3.4-5.0) 01/14/19 20:58 Globulin 3.7 gm/dl (2.5-4.0) 01/14/19 20:58 Albumin/Globulin Ratio 1.3 (0.9-2) 01/14/19 20:58 Lipase 58 U/L (73-393) L 01/14/19 20:58 Urine Color Dark Yellow 01/14/19 20:55 Urine Appearance Cloudy (Clear) A 01/14/19 20:55 Urine pH 5.0 (4.5-7.5) 01/14/19 20:55 Ur Specific [place] 1.026 (1.000-1.030) 01/14/19 20:55 Urine Protein Trace (Negative) H 01/14/19 20:55 Urine Glucose (UA) Negative (Negative) 01/14/19 20:55 Urine Ketones Trace (Negative) H 01/14/19 20:55 Urine Blood Negative (Negative) 01/14/19 20:55 Urine Nitrite Negative (Negative) 01/14/19 20:55 Urine Bilirubin Negative (Negative) 01/14/19 20:55 Urine Urobilinogen Negative (Negative) 01/14/19 20:55 Ur Leukocyte Esterase Negative (Negative) 01/14/19 20:55 Urine WBC (Auto) 1-5 /hpf (0-5) 01/14/19 20:55 Urine RBC (Auto) 0-4 /hpf (0-4) 01/14/19 20:55 U Hyaline Cast (Auto) >30 /lpf (0-5) H 01/14/19 20:55 U Epithel Cells (Auto) >30 /lpf (0-5) H 01/14/19 20:55 Urine Bacteria (Auto) Negative (Negative) 01/14/19 20:55 Calcium Oxalate Crystal Present (None Prsent) A 01/14/19 20:55 Diagnostic Findings [place], [place] [phone] CT Scan Report Patient: GEOVANY CARBAJAL Date: 01/14/19 MR#: [id number] Acct ID:[id number]: [address] Date: 1960City Zip: [place] [address] Age: 58Location: ED Sex: F Room/Bed: Att Phy:Diagnosis: HIVES Isabel Phy: Norberto Anderson, MDService Date: 01/14/19 Fam Phy:Interpreting Phy: Matteo Rojas MD Admit Phy: Ordering Phy: Stephon Cantu MD cc: ~ ABDOMEN AND PELVIS CT WITHOUT CONTRAST CT DOSE: 1019.33 mGy.cm HISTORY: Right flank pain. Evaluate for stone. TECHNIQUE: Multiaxial CT images of the abdomen and pelvis were performed without contrast. A dose lowering technique was utilized adhering to the principles of ALARA. COMPARISON STUDY: Abdomen and pelvis CT 09/20/2018. FINDINGS: The lung bases are clear. No pneumoperitoneum. No pneumatosis. No suspicious lytic are blastic osseous lesions. Prior L3 vertebroplasty is again noted. Moderate central canal narrowing at L3 due to the chronic compression deformity remains unchanged. Prior mesh repair of a ventral hernia with persistent laxity of the anterior abdominal wall. This remains unchanged. Cholecystectomy. The unenhanced liver, pancreas, and adrenal glands unremarkable. No retroperitoneal lymphadenopathy. A normal spleen is not identified. Multiple small splenic nodules seen within the left side the abdomen consistent with splenosis. Prior hysterectomy and appendectomy. Stable 1.6 cm hypodense lesion within the upper pole the right kidney. This favors a cyst. Stable 5 mm intermediate density lesion within the left kidney. This is technically too small to characterize. There is a punctate stone within the right kidney. No ureteral stones. No hydronephrosis. The bladder is unremarkable. No pelvic free fluid. Suboptimal evaluation for bowel pathology due to the lack of intravenous and oral contrast. However, there is no definite bowel wall thickening or obstruction. Colonic diverticulosis. No evidence for diverticulitis. IMPRESSION: 1. Right-sided nephrolithiasis. No ureteral stones. No hydronephrosis. 2. No definite bowel wall thickening or obstruction. 3. Postoperative changes as described above. Electronically signed by: Matteo Rojas M.D. 01/14/2019 9:52 PM Dictated: 01/14/192143 Transcribed: 01/14/192143 Code Status & VTE Plan Code Status full code VTE Prophylaxis Plan VTE Prophylaxis will be ordered: Yes PG Care Time/CCT Total # of Minutes Spent Total Time Spent with Patient: Total time spent is greater than 50% in coordination of care (as documented) at patient's floor/unit and/or counseling patient: (1) Anxiety disorder Anxiety disorder type: generalized anxiety disorder Qualified Code(s): F41.1 - Generalized anxiety disorder (2) Hypothyroidism Hypothyroidism type: unspecified Qualified Code(s): E03.9 - Hypothyroidism, unspecified (3) Chronic low back pain Back pain laterality: midline Sciatica presence: without sciatica Qualified Code(s): M54.5 - Low back pain; G89.29 - Other chronic pain
[2019-01-14 23:04] LABS: ALC (manual) 7.53 K/uL (1.2-3.4); ANC (manual) 14.23 K/uL (1.4-6.5); Eosinophils # (manual) 0.21 K/uL (0-0.5); Eosinophils % (manual) 0.9 %; Lymphocytes # (manual) 7.53 K/uL (1.2-3.4); Lymphocytes % (manual) 32.2 %; Monocytes # (manual) 1.43 K/uL (0.11-0.59); Monocytes % (manual) 6.1 %; Neutrophils # (manual) 14.23 K/uL (1.4-6.5); Neutrophils % (manual) 60.8 %; Smudge Cells Present
[2019-01-14 23:16] LABS: Blast Cells % (manual) 0.9 %
[2019-01-14 23:21] LABS: Blast # (manual) 0.21 K/uL (0-0)
--- NOTE | 2019-01-14 23:41 | Emergency Department Note ---
Entered by Hanane Juarez acting as a scribe for Stephon Cantu MD History of Present Illness General Chief complaint: Allergic Reaction Stated complaint: HIVES Source: patient History of Present Illness Onset (ago): day(s) 3 Location: face, upper extremity and lower extremity Pain Consistency: + intermittent (for the past 3 days) Maximum Pain Intensity: 4 Quality: + other (allergic reaction) Associated symptoms: + other (Positive skin appearing "sunburnt and hard," skin is red, itchy and bumpy, bruise over her left breast area (believes it is due to prednisone), "pinpricks of blood" in urine, back pain. Negative change in detergents, soaps. 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 She reports for the past 3 days, she has had intermittent episodes of itchiness however today, the skin on her face appeared "sunburnt and feels hard." She states this is painful and she cannot touch her face. She states her nose is also swollen and the skin is also turning hard. 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 She states it is now pretty much resolved other than some redness to her nose the patient is currently on prednisone which she was prescribed by her doctor for hives. She states this mo rning, she woke up with her left breast area covered in bruises, which she believes may be due to the prednisone. Pt denies any change in soaps, detergents. She reports she has intermittent episodes of itchiness. She reports she had scabies many years ago and this does not feel similar. She also notes she has chronic back pain however today, her back pain was worse than usual. She states while in the ED, she urinated and there were "pinpricks of blood" when she wiped. Home Medications Home Medications Medication Instructions Recorded Confirmed Type fluticasone propion-salmeterol 1 inha INHALATION BID #14 ea 01/01/18 01/14/19 Rx [Advair Diskus] fluticasone propionate 1 sprays NA DAILY PRN #9.9 gm 01/01/18 01/14/19 Rx gabapentin 800 mg PO QID #30 tab 01/01/18 01/14/19 Rx levothyroxine 137 mcg PO DAILYBB #30 tab 01/01/18 01/14/19 Rx rosuvastatin [Crestor] 20 mg PO HS #30 tab 01/01/18 01/14/19 Rx Medical Marijuana 2 - 3 puff INHALATION HS PRN 06/03/18 01/14/19 History acetaminophen [Pain Reliever] 1,000 mg PO Q8H PRN 06/03/18 01/14/19 History albuterol sulfate [Ventolin HFA] 2 puff INHALATION QID PRN 06/03/18 01/14/19 History clopidogrel 75 mg PO QPM 06/03/18 01/14/19 History escitalopram oxalate 40 mg PO QPM 06/03/18 01/14/19 History fexofenadine 180 mg PO QAM 06/03/18 01/14/19 History montelukast 10 mg PO QAM 06/03/18 01/14/19 History oxycodone 20 mg PO Q6 06/03/18 01/14/19 History metoprolol succinate 50 mg PO HS 09/20/18 01/14/19 History omeprazole 40 mg PO QAM 09/20/18 01/14/19 History prednisone 0 mg PO UD 01/14/19 01/14/19 History Allergies Allergy/AdvReac Type Severity Reaction Status Date / Time aspirin Allergy Severe SHORT OF Verified 01/14/19 21:08 BREATH cephalexin Allergy Severe EDEMA OF Verified 01/14/19 21:08 FACE,LIPS,TONGUE ketorolac Allergy Severe SHORTNESS Verified 01/14/19 21:08 OF BREATH latex Allergy Severe Difficulty Verified 01/14/19 21:08 Breathing NSAIDS (Non-Steroidal Allergy Severe SHORT OF Verified 01/14/19 21:08 Anti-Inflamma BREATH vancomycin Allergy Intermediate POSSIBLE Verified 01/14/19 21:08 IRRITATION? Sulfa (Sulfonamide Allergy Unknown UNKNOWN- Verified 01/14/19 21:08 Antibiotics) HAD RXN WHEN LITTLE adhesive Allergy Rash Verified 01/14/19 21:08 amitriptyline AdvReac Severe NEURO Verified 01/14/19 21:08 COMPLICATIONS simvastatin AdvReac Intermediate myalgias Verified 01/14/19 21:08 metformin AdvReac Mild GI SYMPTOMS Verified 09/20/18 17:29 Past Med/Surg History Medical History Nocturnal hypoxia Morbid obesity with BMI of 40.0-44.9, adult Infection of total right knee replacement Dyspnea (Acute) Hx pulmonary embolism (Chronic) provoked, occurred in 2003, no further episodes Hypothyroidism (Chronic) Opioid dependence (Chronic) Anxiety disorder (Acute) Hypotension (Resolved 04/08/13) History of chronic back pain (Chronic) Leukocytosis (Resolved) CHI (closed head injury) (Resolved) Post concussion syndrome (Resolved) History of major depression Anxiety disorder (Chronic) CAD (coronary artery disease) (Chronic) Chronic low back pain (Chronic) GERD (gastroesophageal reflux disease) (Chronic) Hyperlipidemia (Chronic) Hypertension (Chronic) Hypothyroidism (Chronic) Iron deficiency anemia (Chronic) Opioid dependence (Chronic) Osteoarthritis (Chronic) Seasonal allergies (Chronic) History of pulmonary embolism (Resolved) Surgical History History of splenectomy Hx of hernia repair (Resolved) Hx of appendectomy (Resolved) S/P appendectomy S/P carpal tunnel release S/P cholecystectomy S/P hernia repair S/P kyphoplasty S/P right knee arthroscopy S/P splenectomy S/P total knee arthroplasty Family History Other Asthma Coronary heart disease DM type 2 (diabetes mellitus, type 2) Hypertension Social History Preferred Language: Slovenian Communication Ability: Effective Visual Impairment: No Limitations marital status: Single Current Living Situation: Alone current occupational status: employed Feels Safe at Home: Yes Smoking Status: Current every day smoker Hx Alcohol Use: No Hx Substance Use: No Review of Systems See HPI for pertinent positives & negatives. and A total of 10 systems reviewed and were otherwise negative Physical Exam Vital Signs Vital Signs - 24 hr 01/14/19 20:24 01/14/19 22:42 Temperature 36.4 C L Temperature Source Oral Sepsis Recent Fever Within 48 Hours No Sepsis Action Taken by Nursing No Action Required Pulse Rate 100 H Pulse Rate [Finger] 83 Pulse Rhythm Regular Pulse Strength Normal Respiratory Rate 20 18 Respiratory Effort / Characteristics Non-Labored Spontaneous Respiratory Depth Normal Respiratory Pattern Regular Blood Pressure 168/96 H Blood Pressure [Right Arm] 143/85 H Blood Pressure Mean 120 Blood Pressure Mean [Right Arm] 104 Blood Pressure Position Sitting Pulse Oximetry 93 96 Oxygen Delivery Method Room Air Room Air Constitutional: Vital signs reviewed. Eyes: Pupils are equal round reactive to light. Conjunctiva are noninjected. ENT: Pharynx is clear without erythema or exudate. Mucous membranes are moist. Neck supple without meningeal signs. Respiratory: Clear to auscultation bilaterally. Breath sounds are equal bilaterally. Cardiovascular: Regular rate and rhythm. No rubs or gallops. GI: Soft, nondistended and nontender. Bowel sounds are present. Musculoskeletal: No peripheral edema. No CVA tenderness. Integumentary: Mild erythema to the nose. Erythematous lesion to the scalp without abscess. Scattered erythematous lesions to the upper extremities. No interdigital lesions. Neurological: The patient is awake and alert. No focal deficits. Psychiatric: Normal affect. Course 2035: Past medical records reviewed. The patient was evaluated in room B4. A complete history and physical exam was performed. 2199: I discussed her test results with her. She states she has not been urinating as much because she has been living in her car. She is agreeable to hospitalization. 2213: Discussed the patient's case with Dr. Duffy, [facility] Hospitalist. The patient will be evaluated by him for further management. Administered Medications Discontinued Medications Sodium Chloride (Nss 1000ml) 1,000 mls @ 999 mls/hr IV .Q1H1M ONE Stop: 01/14/19 22:47 Last Infusion: 01/14/19 22:59 Dose: 0 mls/hr Documented by: [id number] Admin: 01/14/19 21:51 Dose: 999 mls/hr Documented by: [id number] Medical Decision Making Differential Diagnosis Differential diagnosis includes: urticaria, dermatitis, scabies, kidney stone, UTI. Medical Records Attestation: I reviewed the patient's medical records. I did perform a limited focused review of portions of the patient's old chart on the electronic medical record. The patient has had no recent pertinent visits to this hospital. Home Medications Current Medication List: was personally reviewed by me Laboratory Data Attestation: I reviewed the patient's lab results. Result diagrams: 01/14/19 20:58 01/14/19 20:58 Lab Results 01/14/19 01/14/19 01/14/19 Range/Units 20:55 20:58 20:58 WBC 23.40 H (4.8-10.8) K/uL RBC 4.95 (4.2-5.4) M/uL Hgb 14.3 (12.0-16.0) g/dL Hct 42.6 (37-47) % MCV 86.1 (80-100) fL MCH 28.9 (25-34) pg MCHC 33.6 (32-36) g/dL RDW Std Deviation 48.7 H (36.4-46.3) fL RDW Coeff of Jose 15.5 H (11.5-14.5) % Plt Count 461 H (130-400) K/uL MPV 10.1 (7.4-10.4) fL Neutrophils % (Manual) 60.8 % Lymphocytes % (Manual) 32.2 % Monocytes % (Manual) 6.1 % Eosinophils % (Manual) 0.9 % Blast Cells % (Manual) 0.9 % Neutrophils # (Manual) 14.23 H (1.4-6.5) K/uL Total Absolute Neuts 14.23 H (1.4-6.5) K/uL Lymphocytes # (Manual) 7.53 H (1.2-3.4) K/uL Total Abs Lymphocytes 7.53 H (1.2-3.4) K/uL Monocytes # (Manual) 1.43 H (0.11-0.59) K/uL Eosinophils # (Manual) 0.21 (0-0.5) K/uL Blast Cells # (Man) 0.21 H (0-0) K/uL Smudge Cells Present Sodium 133 L (136-145) mmol/L Potassium 3.6 (3.5-5.1) mmol/L Chloride 96 L (98-107) mmol/L Carbon Dioxide 26 (21-32) mmol/L Anion Gap 11.0 (3-11) BUN 39 H (7-18) mg/dl Creatinine 2.14 H (0.6-1.2) mg/dl Est Cr Clr Drug Dosing 31.1 ml/min Est GFR ( Amer) 28.3 Est GFR (Non-Af Amer) 24.4 BUN/Creatinine Ratio 18.3 (10-20) Glucose 181 H (70-99) mg/dl Calcium 9.0 (8.5-10.1) mg/dl Total Bilirubin 1.2 H (0.2-1) mg/dl AST 70 H (15-37) U/L ALT 41 (12-78) U/L Alkaline Phosphatase 99 (45-117) U/L Total Creatine Kinase 2164 H (26-192) U/L Total Protein 8.3 H (6.4-8.2) gm/dl Albumin 4.6 (3.4-5.0) gm/dl Globulin 3.7 (2.5-4.0) gm/dl Albumin/Globulin Ratio 1.3 (0.9-2) Lipase 58 L (73-393) U/L Urine Color Dark Yellow Urine Appearance Cloudy A (Clear) Urine pH 5.0 (4.5-7.5) Ur Specific [place] 1.026 (1.000-1.030) Urine Protein Trace H (Negative) Urine Glucose (UA) Negative (Negative) Urine Ketones Trace H (Negative) Urine Blood Negative (Negative) Urine Nitrite Negative (Negative) Urine Bilirubin Negative (Negative) Urine Urobilinogen Negative (Negative) Ur Leukocyte Esterase Negative (Negative) Urine WBC (Auto) 1-5 (0-5) /hpf Urine RBC (Auto) 0-4 (0-4) /hpf U Hyaline Cast (Auto) >30 H (0-5) /lpf U Epithel Cells (Auto) >30 H (0-5) /lpf Urine Bacteria (Auto) Negative (Negative) Calcium Oxalate Crystal Present A (None Prsent) Imaging Data Radiologist's Impression: Radiology results as stated below per my review and the radiologist's interpretation: ABDOMEN AND PELVIS CT WITHOUT CONTRAST CT DOSE: 1019.33 mGy.cm HISTORY: Right flank pain. Evaluate for stone. TECHNIQUE: Multiaxial CT images of the abdomen and pelvis were performed without contrast. A dose lowering technique was utilized adhering to the principles of ALARA. COMPARISON STUDY: Abdomen and pelvis CT 09/20/2018. FINDINGS: The lung bases are clear. No pneumoperitoneum. No pneumatosis. No suspicious lytic are blastic osseous lesions. Prior L3 vertebroplasty is again noted. Moderate central canal narrowing at L3 due to the chronic compression deformity remains unchanged. Prior mesh repair of a ventral hernia with persistent laxity of the anterior abdominal wall. This remains unchanged. Cholecystectomy. The unenhanced liver, pancreas, and adrenal glands unremarkable. No retroperitoneal lymphadenopathy. A normal spleen is not identified. Multiple small splenic nodules seen within the left side the abdomen consistent with splenosis. Prior hysterectomy and appendectomy. Stable 1.6 cm hypodense lesion within the upper pole the right kidney. This favors a cyst. Stable 5 mm intermediate density lesion within the left kidney. This is technically too small to characterize. There is a punctate stone within the right kidney. No ureteral stones. No hydronephrosis. The bladder is unremarkable. No pelvic free fluid. Suboptimal evaluation for bowel pathology due to the lack of intravenous and oral contrast. However, there is no definite bowel wall thickening or obstruction. Colonic diverticulosis. No evidence for diverticulitis. IMPRESSION: 1. Right-sided nephrolithiasis. No ureteral stones. No hydronephrosis. 2. No definite bowel wall thickening or obstruction. 3. Postoperative changes as described above. Electronically signed by: Matteo Rojas M.D. 01/14/2019 9:52 PM Blood Pressure Blood Pressure Findings: Elevated blood pressure Blood Pressure Disposition: further management by hospitalist KAILEE Goldstein I did evaluate the patient as noted above. The patient is presenting with a rash for the past 3 days. Her rash does not appear to be urticaria. It is unclear what is causing this rash although it seemed to have improved significantly. She is currently on prednisone. She also complains of flank pain which seems worse today and she also noticed some blood in her urine. IV access was established. I did order a urine analysis. There is no evidence of infection. She does have calcium oxalate crystals suggesting kidney stones. I did order and review the patient's blood work as noted in the electronic medical record. Her white count is significantly elevated but she is on prednisone. She also states that her white count is normally somewhat elevated. She does have signs of dehydration with a creatinine of 2.14. She states she has been living in her car up until last Friday and states she has not been drinking or going to the bathroom very much while living in her car. I did treat her with normal saline 1 L IV. I did order a CT of the abdomen and pelvis. I did review the images myself as well as the radiology report as described above. She has intrarenal stones but no hydronephrosis. I did discuss the test results with the patient. I did recommend hospitalization for further care and evaluation. I did discuss case with the hospitalist and rn case manager hospice. Impression & Plan ELIO (acute kidney injury), Lower back pain, Rash, Leukocytosis, unspecified Discharge Plan Visit Data Chief Complaint: Allergic Reaction Stated Complaint: HIVES ED Provider: Stephon Cantu Discharge Problem: ELIO (acute kidney injury), Lower back pain, Rash, Leukocytosis, unspecified Patient Disposition: Being Evaluated by Hospitalist Discharge Instructions Interventions: ED Discharge Assessment Last Done: 01/14/19 23:23 Forms Stand Alone Forms: My [facility] I-frontdesk Prescriptions Prescriptions: No Action rosuvastatin [Crestor] 20 mg Tablet 20 mg PO HS Qty: 30 RF: 0 gabapentin 800 mg Tablet 800 mg PO QID Qty: 30 RF: 0 fluticasone propionate 50 mcg/actuation [place],Suspension 1 sprays NA DAILY PRN (Reason: nasal congestion) Qty: 9.9 RF: 0 levothyroxine 137 mcg Tablet 137 mcg PO DAILYBB Qty: 30 RF: 0 fluticasone propion-salmeterol [Advair Diskus] 250-50 mcg/dose Blister With Device 1 inha Inhalation BID Qty: 14 RF: 0 fexofenadine 180 mg tablet 180 mg PO QAM RF: 0 albuterol sulfate [Ventolin HFA] 90 mcg/actuation HFA aerosol inhaler 2 puff Inhalation QID PRN (Reason: Shortness Of Breath Or Wheezing) RF: 0 oxycodone 20 mg tablet 20 mg PO Q6 RF: 0 Medical Marijuana 2 - 3 puff Inhalation HS PRN (Reason: Pain) RF: 0 clopidogrel 75 mg tablet 75 mg PO QPM RF: 0 montelukast 10 mg tablet 10 mg PO QAM RF: 0 escitalopram oxalate 20 mg tablet 40 mg PO QPM RF: 0 acetaminophen [Pain Reliever] 500 mg tablet 1,000 mg PO Q8H PRN (Reason: Pain) RF: 0 omeprazole 40 mg capsule,delayed release(DR/EC) 40 mg PO QAM RF: 0 metoprolol succinate 50 mg tablet extended release 24 hr 50 mg PO HS RF: 0 prednisone 10 mg tablet PO UD RF: 0 Referrals Referrals: Norberto Anderson [Primary Care Provider] - Discharge Problem: Lower back pain Qualifiers: Chronicity: chronic Back pain laterality: bilateral Sciatica presence: without sciatica Qualified Code(s): M54.5 - Low back pain Leukocytosis, unspecified Qualifiers: Leukocytosis type: unspecified Qualified Code(s): D72.829 - Elevated white blood cell count, unspecified The scribe's documentation has been prepared under my direction and personally reviewed by me in its entirety. I confirm that the note above accurately reflects all work, treatment, procedures, and medical decision making performed by me.
[2019-01-14] MEDS ORDERED: HYDROCODONE/ACETAMOPHEN 5/325MG TAB PO PRN (23:42)
[2019-01-14] MEDS ORDERED: ALUMINUM/MAGNESIUM SUSP 30 ML UDC PO PRN (23:46)
[2019-01-14] MEDS ORDERED: ALBUTEROL HFA 8 GM INHALER INH PRN (23:46)
[2019-01-14] MEDS ORDERED: POLYETHYLENE (MIRALAX) 17 GM PACK PO PRN (23:46)
[2019-01-14] MEDS ORDERED: ACETAMINOPHEN 500 MG TAB PO PRN (23:46)
[2019-01-14] MEDS ORDERED: FLUTICASONE PROPIONATE NA SPR 16 GM BTL PRN (23:46)
[2019-01-14] MEDS ORDERED: MAGNESIUM HYDROXIDE SUSP 30 ML UDC PO PRN (23:46)
[2019-01-14] MEDS ORDERED: ONDANSETRON INJ 2 MG/ML 2 ML VIAL IV PRN (23:46)
[2019-01-14] MEDS ORDERED: ACETAMINOPHEN 325 MG TAB PO PRN (23:46)
[2019-01-15] MEDS: SODIUM CHLORIDE 0.9% 1000ML 1,000 ML IV SCH ×3 (00:27→16:15)
[2019-01-15] MEDS ORDERED: METOPROLOL SUCC 50MG EXT REL TAB PO STA (00:28)
[2019-01-15] MEDS ORDERED: LEVOFLOXACIN CONSULT ACTIVE PRN (00:34)
[2019-01-15] MEDS ORDERED: LEVOFLOXACIN/D5W 500 MG/100 ML BAG IV SCH (01:00)
[2019-01-15] MEDS ORDERED: OXYCODONE HCL IR 5 MG TAB (IMMEDIATE RELEASE) PO PRN (01:02)
[2019-01-15] MEDS ORDERED: methylPREDNISolone 40 MG in SYRINGE 0 ML IV STA (01:14)
[2019-01-15] MEDS ORDERED: LEVOTHYROXINE SODIUM 137 MCG TABLET PO SCH (06:30)
[2019-01-15] MEDS: GABAPENTIN 800 MG TAB PO SCH ×2 (07:54→14:28)
[2019-01-15] MEDS ORDERED: methylPREDNISolone 40 MG in SYRINGE 0 ML IV SCH (08:00)
[2019-01-15] MEDS ORDERED: FEXOFENADINE HCL 180 MG TAB PO SCH (09:00)
[2019-01-15] MEDS ORDERED: FLUTICASONE/SALMETEROL 250/50 (ADVAIR) 14 PUFF/1 INHALER INH SCH (09:00)
[2019-01-15] MEDS ORDERED: MONTELUKAST SODIUM 10 MG TABLET PO SCH (09:00)
[2019-01-15] MEDS ORDERED: HEPARIN SOD 5,000 UNIT/0.5 ML VIAL SQ SCH (09:00)
[2019-01-15] MEDS ORDERED: PANTOprazole 40 MG TAB PO SCH (09:00)
[2019-01-15] MEDS: OXYCODONE HCL IR 5 MG TAB (IMMEDIATE RELEASE) PO PRN ×2 (10:13→16:12)
[2019-01-15 11:03] VITALS: BP 126/79; O2SAT 98
[2019-01-15 14:06] LABS: Hematocrit (blood only) 38.4 % (37-47); Hemoglobin 12.6 g/dL (12.0-16.0); Mean Corpuscular Hemoglobin 28.2 pg (25-34); Mean Corpuscular Hgb Conc 32.8 g/dL (32-36); Mean Corpuscular Volume 85.9 fL (80-100); Mean Platelet Volume 9.9 fL (7.4-10.4); Platelet Count 387 K/uL (130-400); RDW Coefficient of Variation 15.8 % (11.5-14.5); RDW Standard Deviation 49.4 fL (36.4-46.3); Red Blood Count 4.47 M/uL (4.2-5.4)
[2019-01-15 14:12] LABS: Albumin Level 3.3 gm/dl (3.4-5.0); BUN Creatinine Ratio 22.3 (10-20); Bilirubin,Total 0.8 mg/dl (0.2-1); Calcium 8.3 mg/dl (8.5-10.1); Creatinine Clr Calc Pharmacy 68.7 ml/min; Est GFR (African American) 73.6; Est GFR (Non-African American) 63.5; Globulin 3.5 gm/dl (2.5-4.0); Phosphorus 2.5 mg/dl (2.5-4.9); Total Protein 6.8 gm/dl (6.4-8.2)
[2019-01-15 14:54] LABS: Potassium 4.1 mmol/L (3.5-5.1)
[2019-01-15 15:02] LABS: Magnesium 2.2 mg/dl (1.8-2.4)
[2019-01-15 15:25] VITALS: PULSE 76; TEMP 98.1
--- NOTE | 2019-01-15 17:07 | Discharge Summary ---
Date of Service January 15, 2019 Admission HPI Per Admitting Provider The patient is a 58-year-old female with a past medical history including asthma, allergy, hypothyroidism, depression and hypertension, who presents to the emergency department with complaint of a generalized rash which began 3 days ago and continues to worsen. Her face is the most bothersome, with painful areas above her upper lip and on her nose and forehead. She reports that her face began to get significantly swollen about 1 hour prior to arrival, but began to improve in route to the hospital. She presently is on a course of prednisone prescribed by her outpatient physician for the rash. She does note some bruising on her left breast when she awoke this morning. Of note, the patient has been living in her car since July due to inability to find a suitable house, but did move into a house this past weekend 4 days ago. Principal Diagnosis Mild ELIO from dehydration; possible infestation-related rash Discharge Exam Constitutional WD/WN, vitals as above Eyes EOM intact bilaterally; no conjunctival abnormality ENMT external ear and nose normal, oropharynx normal Neck trachea midline, no thyromegaly normal visual inspection Respiratory normal respiratory effort, lungs clear to auscultation no respiratory distress Cardiovascular RRR, no murmur, no edema Gastrointestinal (Abdomen) Inspection/Auscultation: abdomen normal to inspection; abdomen not distended Musculoskeletal no cyanosis or clubbing, extremities motor strength 5/5 Skin + crusts (Multiple papules, some with excoriations on them. Predominantly on the arms) Neurologic moves all extremities and awake Psychiatric Orientation: alert, oriented to person and cooperative Discharge Data Allergies Allergy/AdvReac Type Severity Reaction Status Date / Time aspirin Allergy Severe SHORT OF Verified 01/14/19 21:08 BREATH cephalexin Allergy Severe EDEMA OF Verified 01/14/19 21:08 FACE,LIPS,TONGUE ketorolac Allergy Severe SHORTNESS Verified 01/14/19 21:08 OF BREATH latex Allergy Severe Difficulty Verified 01/14/19 21:08 Breathing NSAIDS (Non-Steroidal Allergy Severe SHORT OF Verified 01/14/19 21:08 Anti-Inflamma BREATH vancomycin Allergy Intermediate POSSIBLE Verified 01/14/19 21:08 IRRITATION? Sulfa (Sulfonamide Allergy Unknown UNKNOWN- Verified 01/14/19 21:08 Antibiotics) HAD RXN WHEN LITTLE adhesive Allergy Rash Verified 01/14/19 21:08 amitriptyline AdvReac Severe NEURO Verified 01/14/19 21:08 COMPLICATIONS simvastatin AdvReac Intermediate myalgias Verified 01/14/19 21:08 metformin AdvReac Mild GI SYMPTOMS Verified 09/20/18 17:29 Consultations 01/14/19 22:04 ED Decision to Admit Stat 01/14/19 23:46 Consult Case Management - Discharge Planning Routine Ordered Studies 01/14/19 20:49 CT abd pelvis wo con Stat Hospital Course (1) ELIO (acute kidney injury): Creatinine 2.14 upon admission. Baseline 0.75. - Down to 0.9 within 24 hours with IV fluids - Likely antony pre-renal ELIO. Encouraged to drink good oral intake. (2) Rash: I am worried about bed bugs. Patient had been homeless (living in car) and now in a new home. She reports the rash began shortly after moving into the new facility. The rash has many small, pruritic papules, consistent with bed bug bites. I discussed this with her, and she felt it to be unlikely. - Can continue the steroid taper given at the urgent care center. Can also use topical Benadryl for itching. - I encouraged her to check her home. - Continue fexofenadine 180 mg daily. (3) Hx pulmonary embolism: Not on any chronic anticoagulation. Placed on DVT prophylaxis with heparin subcu (4) Anxiety disorder: Continue Lexapro 40 mg every evening and gabapentin 800 mg p.o. 4 times daily (5) Hypothyroidism: Continue levothyroxine sodium 137 mcg daily before breakfast (6) Chronic low back pain: Uses oxycodone 20 mg p.o. at bedtime as needed (7) Asthma: Continue Ventolin HFA 2 puffs 4 times daily as needed Advair Diskus 1 inhalation twice daily and montelukast 10 mg every morning (8) Allergic rhinitis: Continue fexofenadine and montelukast (9) GERD (gastroesophageal reflux disease): Omeprazole 40 mg p.o. every morning to pantoprazole 40 mg p.o. every morning. (10) Hyperlipidemia: Continue rosuvastatin 10 mg at bedtim2 Total Time Total Time Spent Total Time Spent (In Minutes): 35 Discharge Plan Discharge Items Patient Disposition: Home - Self-Care Reason For Visit: ELIO,UTI,RASH Discharge Diagnosis: Dehydration causing mild kidney injury and muscle damage Activity: Resume your previous activity Non-emergency contact: Primary Care Provider Call non-emergency contact if: your symptoms worsen and your temperature is above 101 Follow-up/Referrals: Norberto Anderson [Primary Care Provider] - Diet: Regular Addtl Attending Provider Instructions: Ms. Cummings, Sundeep were admitted for a mild kidney injury that was related to dehydration. The kidneys returned to normal with some IV fluids. Please be sure to drink enough that your urine is clean and light yellow. Your rash improved with steroids. Please continue the taper you were given at [facility] (or other urgent care center). This may be related to stress, though I do recommend checking your new apartment for any bugs as this could also leave itchy spots on your skin. Pending Studies at Discharge: No Stand-Alone Forms: My [facility] Medications and DC Order Prescriptions: Continued rosuvastatin [Crestor] 20 mg Tablet 20 mg PO HS Qty: 30 RF: 0 gabapentin 800 mg Tablet 800 mg PO QID Qty: 30 RF: 0 fluticasone propionate 50 mcg/actuation [place],Suspension 1 sprays NA DAILY PRN (Reason: nasal congestion) Qty: 9.9 RF: 0 levothyroxine 137 mcg Tablet 137 mcg PO DAILYBB Qty: 30 RF: 0 fluticasone propion-salmeterol [Advair Diskus] 250-50 mcg/dose Blister With Device 1 inha Inhalation BID Qty: 14 RF: 0 fexofenadine 180 mg tablet 180 mg PO QAM RF: 0 albuterol sulfate 90 mcg/actuation HFA aerosol inhaler 2 puff Inhalation QID PRN (Reason: Shortness Of Breath Or Wheezing) RF: 0 oxycodone 20 mg tablet 20 mg PO Q6 RF: 0 Medical Marijuana 2 - 3 puff Inhalation HS PRN (Reason: Pain) RF: 0 clopidogrel 75 mg tablet 75 mg PO QPM RF: 0 montelukast 10 mg tablet 10 mg PO QAM RF: 0 escitalopram oxalate 20 mg tablet 40 mg PO QPM RF: 0 acetaminophen [Pain Reliever] 500 mg tablet 1,000 mg PO Q8H PRN (Reason: Pain) RF: 0 omeprazole 40 mg capsule,delayed release(DR/EC) 40 mg PO QAM RF: 0 metoprolol succinate 50 mg tablet extended release 24 hr 50 mg PO HS RF: 0 prednisone 10 mg tablet PO UD RF: 0 Discharge Orders: Discharge Order (Routine); Ordered 01/15/19 Ordered By: Laron Cordero Admission Data Admit Date/Time: 01/14/19 22:37 Attending Provider: Laron Cordero Admit Provider: Manny Duffy Primary Care Provider: Norberto Anderson Other Providers: Laron Cordero Other Interventions: Discharge Summary Assessment (RN) Last Done: 01/15/19 16:49
[2019-01-15] MEDS ORDERED: ROSUVASTATIN CALCIUM 20 MG TAB PO SCH (21:00)
[2019-01-15] MEDS ORDERED: ESCITALOPRAM OXALATE 20 MG TAB PO SCH (21:00)
[2019-01-15] MEDS ORDERED: CLOPIDOGREL BISULFATE 75 MG TAB PO SCH (21:00)
[2019-01-15] MEDS ORDERED: METOPROLOL SUCC 50MG EXT REL TAB PO SCH (21:00)
[2019-01-16] MEDS ORDERED: LEVOFLOXACIN/D5W 250 MG/50 ML BAG IV SCH (01:00)
== END 2019-01-15 17:40 | disposition home or self-care (01) | DRG 683 ==
LOC: ED 20:23 → SUATTDRO 22:37 → 2N 22:37